=== PATIENT | male | born 1940 | race Caucasian/White ===

== ENCOUNTER 2017-11-15 08:35 | Inpatient (IN) | payer MEDICARE, MEDICAID ==
[2017-11-15] MEDS ORDERED: Levofloxacin 500mg/100mL 500 MG/100 ML BAG IV ONE ×2 (08:46→09:54)
[2017-11-15] MEDS ORDERED: Ipratropium Neb 0.5 mg/2.5 mL UD HHN ONE ×2 (08:53→09:01)
[2017-11-15] MEDS ORDERED: Diltiazem 30 mg Tab PO STA (08:57)
[2017-11-15] MEDS ORDERED: Nitroglycerin 0.2 mg/hr Tdm TD ONE (08:59)
[2017-11-15] MEDS ORDERED: Albuterol Nebulizer 2.5mg/3mL HHN ONE (09:01)
[2017-11-15] MEDS ORDERED: Aspirin 81mg Chewable Tab PO STA (09:06)
[2017-11-15] MEDS ORDERED: Diltiazem 5 mg/mL 5mL Vial IVP STA (09:09)
[2017-11-15 09:12] LABS: % EOSINOPHILS 0.6 % (0.0-5.0); % LYMPHOCYTES 17.8 % (20.0-50.0); % NEUTROPHILS 73.6 % (40.0-80.0); HEMATOCRIT 41.5 % (41.0-60); HEMOGLOBIN 13.6 gm/dL (12-16); LYMPHOCYTE ABSOLUTE 0.5 Th/cmm (1.5-3.0); MEAN CELL VOLUME 90.3 fl (80-99); MEAN CORPUSCULAR HEMOGLOBIN 29.6 pg (27.0-31.0); MEAN CORPUSCULAR HGB CONC 32.7 pg (28.0-36.0); MONOCYTE ABSOLUTE 0.2 Th/cmm (0.3-1.0); NEUTROPHILE ABSOLUTE 2.2 Th/cmm (1.8-8.0); PLATELET COUNT 201 Th/cmm (150-400); RED CELL DISTRIBUTION WIDTH 14.2 % (11.5-20.0)
[2017-11-15 09:14] LABS: WHITE BLOOD COUNT 2.9 Th/cmm (4.8-10.8)
--- NOTE | 2017-11-15 09:24 | Diagnostic Imaging Report ---
Portable chest x-ray HISTORY: Shortness of breath The heart is enlarged. Cardiac electrode lead wires project over the right atrium and right ventricle. Infiltrates noted within the right and left lower lobe regions. Pneumonia cannot be excluded. No definite hilar or mediastinal abnormalities. IMPRESSION: 1. Bilateral lower lobe infiltrates. Pneumonia cannot be excluded. 2. Cardiomegaly with atherosclerotic vascular changes
[2017-11-15] MEDS ORDERED: Diltiazem 5 mg/mL 5mL Vial IVP ONE (09:25)
[2017-11-15 09:51] LABS: ALB/GLOB RATIO 0.7 (1.0-1.8); ALKALINE PHOSPHATASE 54 U/L (34-104); ANION GAP 20.2 (7.0-16.0); CALCIUM SERUM 10.4 mg/dL (8.6-10.3); CARBON DIOXIDE 16.7 mEq/L (21.0-31.0); CHLORIDE 105 mEq/L (98-107); CREATININE - SERUM 3.3 mg/dL (0.7-1.3); GLUCOSE 263 mg/dL (70-105); POTASSIUM SERUM 4.9 mEq/L (3.5-5.1); SGOT 112 U/L (13-39); SGPT/ALT 79 U/L (7-52); SODIUM SERUM 137 mEq/L (136-145); TOTAL PROTEIN,SERUM 7.2 gm/dL (6.0-8.3)
[2017-11-15 09:52] LABS: CHOLESTEROL 75 mg/dL (<200); HDL -HIGH DENSITY LIPOPROTEIN 9 mg/dL (23-92); TRIGLYCERIDES 201 mg/dL (<150)
[2017-11-15] MEDS ORDERED: Piperacillin Sodium/Tazobact 3.375 gm Vial IV ONE ×2 (09:54→17:31)
[2017-11-15 10:00] LABS: BUN - UREA NITROGEN 109 mg/dL (7-25)
[2017-11-15 10:37] LABS: pH 7.44 (7.35-7.45)
[2017-11-15 11:31] LABS: A1C % 8.3 % (4.0-6.0)
[2017-11-15] MEDS ORDERED: Diltiazem 5 mg/mL 25mL Vial IV ONE (11:55)
[2017-11-15] MEDS ORDERED: Sodium Chloride 0.9% 1,000 ML IV ONE (12:31)
[2017-11-15] MEDS ORDERED: Albuterol/Ipratropium Neb 3 ML AERS HHN PRN (12:50)
--- NOTE | 2017-11-15 16:31 | ER Physician Documentation ---
DATE OF SERVICE: 11/15/2017 ADDENDUM: LABORATORY DATA: The troponin is up, is 0.19 and could be secondary to sepsis, could be mild subendocardial ischemia, but the lactic acid is very high at 4.79 suggesting that the patient has septicemia. Triglyceride level is high at 201. The patient's electrolytes show sodium 137, potassium 4.9, chloride 105, CO2 is 16.7, glucose is 263 and BUN is 109, calcium level is 10.4, albumin is 3, albumin globulin ratio is 0.7. SGPT/AST ratio is 112, alkaline phosphatase ____. Magnesium is 2.3. BNP level is high at 728. Once we get the chest x-ray report to see whether the patient has any evidence of congestive heart failure, but the BNP is very high and whether this is because of some degree of congestive heart failure or not. White count is also elevated at 16.4 with hemoglobin of 11.4, hematocrit 34.1, and platelet count is 337,000 and differential was done and pH blood gas was done, pH of 7.44, pCO2 of 25, pO2 of 71, bicarbonate of 20.5. TSH is within normal limits. DIAGNOSES: So, the admitting diagnoses would be: 1. The patient has lethargic status. 2. Severe hypoxia on the verge of intubation, but to be avoided by giving antibiotics and 100% nonrebreather mask, breathing treatment, etc. 3. Mild elevation of troponin, could be secondary to infection, could be secondary to multiple medical problems or it could be the patient having some subendocardial ischemia. 4. The patient has sepsis, possibly septic shock status, septicemia status. 5. BNP is elevated to be 728 and this is comprising of the patient having congestive heart failure. There is no definite evidence of rhabdomyolysis in this patient. The BUN level is high at 109, creatinine is 3.3. This is old BUN and creatinine, chronic renal failure stage 3 with renal failure, so possibly the patient might need some diuretics to be given for her. We will check and give her some Lasix, given some Lasix at the present moment. The patient has protein-calorie malnutrition, chronic kidney disease and all the other disease that I mentioned before holds true. JOB# [id number]
[2017-11-15] MEDS ORDERED: D5-0.45NS w/20 mEq KCL 1,000 ML IV ONE (16:53)
[2017-11-15] MEDS: D5-0.45NS w/20 mEq KCL 1,000 ML IV SCH (17:01)
[2017-11-15] MEDS: methylPREDNISolone SS 40 mg Vial IVP SCH ×2 (17:52→23:27)
[2017-11-15] MEDS: Cefepime 1 GM in Sodium Chloride 0.9% 50 ML IV SCH (18:58)
--- NOTE | 2017-11-15 20:29 | History & Physical ---
ADMIT DATE: 11/15/2017 CHIEF COMPLAINT: Acute respiratory failure. HISTORY OF PRESENT ILLNESS: The patient is a 77-year-old male who presented to the Emergency Room with acute respiratory failure, evaluated by the ER physician. Initial workup significant for pneumonia, acute kidney injury, dehydration. The patient admitted to the ICU, started on IV fluid, antibiotic, BiPAP, breathing treatment, Solu-Medrol. Infectious Disease consultation, Pulmonology and Nephrology consultation obtained. The patient is a poor historian secondary to dementia. PAST MEDICAL HISTORY: Significant for diabetes mellitus, hypertension, and dementia. PAST SURGICAL HISTORY: No recent surgery. ALLERGIES: Lisinopril. SOCIAL HISTORY: Ex-smoker. No alcohol or drug. FAMILY HISTORY: Noncontributory. REVIEW OF SYSTEMS: RENAL SYSTEM: He has history of chronic renal disorder. CARDIOVASCULAR SYSTEM: He has history of hypertension, CHF. ENDOCRINE SYSTEM: He has history of diabetes mellitus. GASTROINTESTINAL SYSTEM: No upper or lower GI bleed. NEUROLOGICAL SYSTEM: He has history of dementia. MUSCULOSKELETAL SYSTEM: No muscular dystrophy. HEMATOLOGICAL: No bleeding tendency. RESPIRATORY SYSTEM: He has pneumonia and acute respiratory failure, COPD. GENITOURINARY SYSTEM: He has acute kidney injury. PHYSICAL EXAMINATION: GENERAL: He is awake, not coherent. VITAL SIGNS: Temperature 97.5, heart rate 105, blood pressure 141/61. HEENT: Normocephalic. Pupils reactive to light and accommodation. Sclerae clear. NECK: Supple. Negative for lymphadenopathy, JVD or bruit. CHEST: Bilaterally diminished associated with mild rhonchi. HEART: S1, S2 normal. ABDOMEN: Soft. Bowel sounds positive. EXTREMITIES: No edema. NEUROLOGIC: Awake, not coherent. LABORATORY DATA: White blood cells 2.9, hemoglobin 13.6, hematocrit 41.5, platelet 201. ABG: Shows pH 7.4, pCO2 is 25, pO2 is 71. Sodium 137, potassium 4.9, BUN is 109, creatinine 3.3, glucose 263. A1c hemoglobin 8.3. ASSESSMENT: 1. Pneumonia. 2. Acute respiratory failure. 3. Chronic obstructive pulmonary disease. 4. Hypertension. 5. Congestive heart failure. 6. Diabetes mellitus. 7. Acute kidney injury. 8. Dehydration. 9. Dementia. PLAN: The patient is in ICU under Dr. Frost's service, started him on IV fluid, IV antibiotic, breathing treatment, sliding scale with regular insulin coverage. CBC, CMP in a.m. Pulmonology, infectious disease specialist, Nephrology consultation obtained. The patient is a full code. JOB# [id number]
[2017-11-15] MEDS ORDERED: Non-Formulary Item 1 EA (Melatonin [Melatonin] 6 MG) PO SCH (21:00)
--- NOTE | 2017-11-15 21:45 | ER Physician Documentation ---
DATE OF SERVICE: 11/15/2017 HISTORY OF PRESENT ILLNESS: Urgent emergency evaluation because the patient was found to be hypoxic and paramedics called the Emergency Room triage nurse. Immediately, the patient was put to the bed #4. I was asked to see the patient. The patient was seen. The patient is not in a position to give any history. The blood gas oxygen saturation went down a little bit, then it came back to 97 and then the blood gas was done, pH of 7.44, pCO2 of 25, pO2 of 71, base excess is -5.6, bicarbonate is 20.5. The patient is on 100% oxygen nonrebreathing mask. The patient's EKG was also done urgently by the instrumentation and control technician, grateful for her help. 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 EKG also showed evidence of left ventricular hypertrophy with repolarization abnormality and nonspecific ST-T changes could be also secondary to ischemia and the history that came, the patient also has ICD device placement. The patient himself cannot give any history. Hence, past history, personal history everything would be made into the final section, so we do not repeat everything except that from looking at the medication, I can say that the patient has sleeping problem, so he is taking melatonin 6 mg a day. He has hypercholesterolemia. He has history of congestive heart failure. He has history of hypertension, history of COPD, history of ICD device. The patient has taken flu vaccine, pneumococcal vaccine and other things that would be mentioned as we go along in the dictation. Past history is that the patient is living in [place] and the patient was sent from there because of severe hypoxia and probably the patient may need intubation. On physical examination, the patient was found to be adequately built, but seems to be poorly nourished. He was not responsive to any pain stimulation. The patient was on 100% oxygen and he had bilateral scattered rales and rhonchi, audible in both lung king. Crackles more were heard in both lung bases and bilateral pneumonitis with COPD is a very likely possibility. PERSONAL HISTORY: Not available, but whatever I see will be put into the final evaluation. FAMILY HISTORY: Not available. PHYSICAL EXAMINATION: HEART: Reveals a rapid heartbeat of 150, atrial fibrillation. He is known to have atrial fibrillation from the past, probably he has sick sinus syndrome, probably he has coronary artery disease or this atrial fibrillation could be a combination of various factors in this patient. ABDOMEN: Soft, benign and negative. Liver, spleen not enlarged. No free fluid in the abdominal cavity. CENTRAL NERVOUS SYSTEM: The patient is unresponsive to answering any questions, but does responds to deep painful stimuli. ALLERGIES: Lisinopril. FINAL DIAGNOSES: Initially the patient is hypoxic in the halfway and over here the oxygen saturation is 71% with 100% nonrebreather mask and the pCO2 is around 25. The patient has been on various medications, which will be given to you in a moment. 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 The patient has sick sinus syndrome, ICD code I49.5. Elevated PSA, code is R97.2 and encounter for screening for malignant neoplasm is ____. The patient's past history is that the patient was admitted to [facility] and the patient was seen by Dr. Osman Ross; electrician's assistant anesthesiologist, ____ and the patient had screening colonoscopy done showing internal hemorrhoids, diverticulosis; otherwise normal colonoscopic examination, so it was not on admission. Outpatient colonoscopic workup was done on the patient and there was no evidence of any cancer, no acute cardiopulmonary disease at that point in time was detected. His urine examination done in the past ____, otherwise negative benign. The patient's white count is 7.7, hemoglobin 13.1, hematocrit 42.3, platelet count is 215, ____. This is old labs that I am giving you. PT, PTT is normal. The patient's blood sugar in the past, his date of is 1940 and this was done, I believe at [facility] showing the glucose to be 214, creatinine was 1.3, sodium 140, potassium 4.1, chloride 106, CO2 is 28. Albumin is 3.6. There is mild hypoalbuminemia. Alkaline phosphatase is elevated at 2.9. The patient's final diagnosis includes the patient is unresponsive and the patient is on Eliquis 2.5 mg b.i.d., melatonin 6 mg p.o. at bedtime, Lipitor 20 mg at bedtime, amlodipine 100 mg p.o. daily, spironolactone 50 mg daily, Protonix 40 mg p.o. daily, metformin 500 mg p.o. b.i.d., Coreg 3.125 mg b.i.d., amlodipine 500 mg p.o. at bedtime for hypertension, aspirin chewable, olanzapine 10 mg p.o. for schizophrenia, paranoid delusions that others are conspiring against him. Informed consent will be obtained by the patient for the use of antipsychotic medication after explanation of the risks and benefits to the resident. The patient should be monitored for orthostatic hypotension, monitor for schizophrenia. The patient should get annual PPD testing done. Flu vaccination and pneumococcal vaccination has been given to the patient. The patient needs to be monitored. Gas Compressor Operator is Dr. Eugenio Her, located at [address] [place] [address] and Dermatology consultation was requested, ENT followup and consultation has been requested. The patient has been given Remeron 30 mg at bedtime for depression. Consent obtained for antibiotic use. Headache, Tylenol has been given to the patient. So, all these medications will be ordered by his primary care physician. The patient needs admission to the hospital. 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 The patient's other diagnosis is acute respiratory failure, COPD, emphysema, bronchitis, congestive heart failure, diabetes, hypertension, chronic atrial fibrillation, schizophrenia, hypercholesterolemia, diabetes mellitus, clean colon, internal hemorrhoids, diverticulosis was detected. The patient also has coronary artery disease. The patient has a history of hypothyroidism, decreased TSH 0.33. The patient is CKD, stage 3; benign prostatic hypertrophy. We will repeat A1c level, fasting level, PSA, etc., will be done. JOB# [id number]
[2017-11-15] MEDS: Linezolid 600mg/300mL Premix Bag IV SCH (23:29)
[2017-11-15] MEDS: Non-Formulary Item 1 EA (Apixaban [Eliquis] 2.5 MG) PO SCH (23:33)
[2017-11-15] MEDS: Atorvastatin Calcium 10 MG TAB PO SCH (23:38)
[2017-11-15] MEDS: GLUCAGON HCl 1 MG KIT IM SCH (23:42)
[2017-11-16] MEDS: D5-0.45NS w/20 mEq KCL 1,000 ML IV SCH ×2 (01:09→07:57)
[2017-11-16] MEDS: methylPREDNISolone SS 40 mg Vial IVP SCH ×3 (05:32→17:19)
[2017-11-16] MEDS: INSULIN ASPART SLIDING SCALE 100 UNITS/ML UNIT SUBQ SCH ×4 (06:56→21:29)
--- NOTE | 2017-11-16 07:54 | Consultation ---
Consult Note - Consult Note Service Date: 11/16/17 Referring Physician: Harley Frost Consult Note: PHYSICIAN Consultation Note: Date of Admission: 11/15/17 Purpose of Consultation: ARF Chief Complaint: RESPIRATORY FAILURE ARF History of Present Illness: Patient ROBERTO RODRIGUEZ was admitted to [facility] Intensive Care Unit with ACUTRE RENAL FAILURE, SEPSIS, PNA. 77 YEAR OLD MALE ADMITTED WITH RESP FAILURE PNA ARF. PT ADMITTED TO ICU. ON IVF AND IV ABX. Past Medical History: DM HTN DEMENTIA Allergies Allergy/AdvReac Type Severity Reaction Status Date / Time lisinopril Allergy Verified 11/15/17 09:03 Vital Signs Temp 97.4 F 11/16/17 04:00 Pulse 72 11/16/17 06:00 Resp 24 11/16/17 06:00 BP 123/63 11/16/17 06:00 Pulse Ox 97 11/16/17 06:00 Intake & Output 11/15/17 11/16/17 11/16/17 18:59 06:59 18:59 Intake Total 1100 1852.0 Output Total 1200 Balance 1100 652.0 Weight (lbs) 62.55 kg Intake: Intake, IV Amount 1100 1852.0 Cefepime 1 gm In Sodium 50 Chloride 0.9% 50 ml @ 100 mls/hr IV Q24HR RYAN Rx#: [id number] D5-0.45NS w/20 mEq KCL 1, 1727.5 000 ml @ 150 mls/hr IV . Q6H40M RYAN Rx#:[id number] Diltiazem 125 mg In 124.5 Dextrose 5% 100 ml @ 10 MG/HR 10 mls/hr IV TITR RYAN Rx#:[id number] Piperacillin Sodium/ 50 Tazobact 3.375 gm In Sodium Chloride 0.9% 50 ml @ 100 mls/hr IV Q6HR ONE Rx#:[id number] Sodium Chloride 0.9% 1, 1000 000 ml @ Wide Open IV . Q0M ONE Rx#:[id number] Output: Urine 1200 Laboratory Results - last 24 hr 11/15/17 17:58 POC Glucose 241 H Home Medication Medication Instructions Recorded Type Amlodipine Besylate 5 mg PO HS 11/15/17 History Amlodipine Besylate 100 mg PO DAILY 11/15/17 History Apixaban [Eliquis] 2.5 mg PO BID 11/15/17 History Aspirin [Aspirin Chewable] 81 mg PO DAILY 11/15/17 History Atorvastatin Calcium [Lipitor] 20 mg PO HS 11/15/17 History Carvedilol [Coreg] 3.125 mg PO BID 11/15/17 History GLUCAGON HCl [Glucagen] 1 mg IM PRN 11/15/17 History Insulin Human Regular [NovoLIN R] 0 units SUBQ BID 11/15/17 History Melatonin 6 mg PO HS 11/15/17 History Mirtazapine [Remeron] 30 mg PO HS 11/15/17 History Neomycin/Bacitracin/Polymyxinb 1 appl TP DAILY 11/15/17 History [Triple Antibiotic Ointment] OLANZapine [ZyPREXA] 10 mg PO TID 11/15/17 History Pantoprazole [Protonix] 40 mg PO DAILY 11/15/17 History Spironolactone 50 mg PO DAILY 11/15/17 History metFORMIN [Glucophage] 500 mg PO BID 11/15/17 History Current Medications Generic Name Dose Route Start Last Admin Trade Name Freq PRN Reason Stop Dose Admin Acetaminophen 650 mg 11/15/17 12:50 Tylenol 650mg Supp RC 01/14/18 12:49 Q4H PRN Fever > 101 Albuterol/Ipratropium 3 ml 11/15/17 12:50 Duoneb Neb HHN 01/14/18 12:49 Q4H PRN Wheezing Amlodipine Besylate 5 mg 11/15/17 21:00 11/15/17 22:41 Norvasc PO 01/14/18 20:59 5 mg HS RYAN Administration Aspirin 81 mg 11/16/17 09:00 Aspirin Chewable PO 01/15/18 08:59 DAILY RYAN Atorvastatin Calcium 20 mg 11/15/17 23:00 11/15/17 23:38 Lipitor PO 01/14/18 22:59 20 mg HS RYAN Administration Carvedilol 3.125 mg 11/15/17 17:00 11/15/17 22:40 Coreg PO 01/14/18 16:59 3.125 mg BID RYAN Administration Glucagon 1 mg 11/15/17 16:45 11/15/17 23:42 Glucagen IM 01/14/18 16:44 Not Given PRN RYAN Diltiazem HCl 125 mg/ Dextrose 125 mls @ 10 mls/hr 11/15/17 11:45 11/16/17 03 :00 IV 01/14/18 11:44 0 mg/hr TITR RYAN 0 mls/hr Protocol Titration 10 MG/HR Potassium Chloride/Dextrose/Sod Cl 1,000 mls @ 150 mls/hr 11/15/17 12:47 07/26 06:00 D5-0.45ns W/20 Meq Kcl IV 01/14/18 12:46 150 mls/hr .Q6H40M RYAN Infusion Cefepime HCl 1 gm/ Sodium 50 mls @ 100 mls/hr 11/15/17 18:00 11/15/17 18:59 Chloride IV 01/14/18 17:59 Infused Q24HR RYAN Infusion Levofloxacin 250 mg/ 50 mls @ 100 mls/hr 11/16/17 10:00 Miscellaneous IV 01/15/18 09:59 Q24H RYAN Insulin Aspart 0 units 11/16/17 07:30 11/16/17 06:56 Novolog Insulin Sliding Scale SUBQ 01/15/18 07:29 11 units ACHS RYAN Administration Protocol Linezolid 600 mg 11/15/17 23:00 11/15/17 23:29 Zyvox IV 01/14/18 22:59 600 mg Q12H RYAN Administration Methylprednisolone Sodium Succinate 60 mg 11/15/17 18:00 11/16/17 05:32 Solu-Medrol IVP 01/14/18 17:59 60 mg Q6HR RYAN Administration Mirtazapine 30 mg 11/15/17 23:00 11/15/17 23:36 Remeron PO 01/14/18 22:59 30 mg HS RYAN Administration Miscellaneous 2.5 mg 11/15/17 17:00 11/15/17 23:33 Apixaban [Eliquis] PO 01/14/18 16:59 Not Given BID RYAN Miscellaneous 6 mg 11/15/17 21:00 11/15/17 23:39 Melatonin [Melatonin] PO 01/14/18 20:59 Not Given HS RYAN Neomycin/Polymyxin/Bacitracin 1 appl 11/16/17 09:00 Triple Antibiotic Ointment TP 01/15/18 08:59 DAILY RYAN Olanzapine 10 mg 11/15/17 21:00 Zyprexa PO 01/14/18 20:59 TID RYAN Protocol Pantoprazole Sodium 40 mg 11/16/17 09:00 Protonix PO 01/15/18 08:59 DAILY RYAN Review of Systems: A 12 point ROS was reviewed with the pertinent positive and negatives noted in the HPI. Social History Smoking Status Smoker EX Drug Use No Alcohol Use No Family Medical History Family Medical History Start: 11/15/17 19: 06 Freq: ONCE Status: Active Document 11/15/17 22:00 RADHA (Rec: 11/15/17 22:57 RADHA ALAN- [id number]) Family Medical History Mother History Unknown Yes Physical Exam: General: LETHARGIC HEENT: TENISHA Neck: SUPPLE Cardio: S1S2 TACHY Respiratory: B/L RHONCHI Abdominal: SOFT NT ND Genital/Urinary: DEFERRED Extremities: NO EDEMA Neurological: CONFUSED Assessment: PNEUMONMIA SEPSIS ACUTE RESPIRATORY FAILURE COPD HTN CHF DM ARF DEMENTIA Plan: WILL REPEAT CHEM 7 THIS AM WILL ORDER HD IF NO IMPROVEMENT IN LABS Signed, Aureliano Heaton M.D. [id number]
[2017-11-16 08:31] LABS: CALCIUM SERUM 9.2 mg/dL (8.6-10.3); CARBON DIOXIDE 16.6 mEq/L (21.0-31.0); CHLORIDE 110 mEq/L (98-107); CREATININE - SERUM 2.9 mg/dL (0.7-1.3); POTASSIUM SERUM 4.6 mEq/L (3.5-5.1); SODIUM SERUM 137 mEq/L (136-145)
[2017-11-16 08:33] LABS: BUN - UREA NITROGEN 105 mg/dL (7-25); GLUCOSE 395 mg/dL (70-105)
[2017-11-16] MEDS: Sodium Chloride 0.9% 1,000 ML IV SCH ×2 (09:01→21:05)
[2017-11-16] MEDS: Levofloxacin 250mg/50mL 250 MG in Premix Fluid 1 BAG IV SCH (09:44)
[2017-11-16] MEDS: Pantoprazole 40 mg EC Tab PO SCH (10:18)
[2017-11-16] MEDS: Aspirin 81mg Chewable Tab PO SCH (10:19)
[2017-11-16] MEDS: Linezolid 600mg/300mL Premix Bag IV SCH (10:19)
[2017-11-16] MEDS: Triple Antibiotic Ointment 28gm tube TP SCH (10:32)
[2017-11-16] MEDS: Non-Formulary Item 1 EA (Apixaban [Eliquis] 2.5 MG) PO SCH ×2 (15:34→17:11)
[2017-11-16] MEDS: Cefepime 1 GM in Sodium Chloride 0.9% 50 ML IV SCH (17:19)
[2017-11-16] MEDS: GLUCAGON HCl 1 MG KIT IM SCH (17:21)
--- NOTE | 2017-11-16 19:29 | History & Physical ---
ADMIT DATE: 11/15/2017 PRIMARY CARE PHYSICIAN: Dr. Frost. REASON FOR CONSULTATION: Sepsis. HISTORY OF PRESENT ILLNESS: This is a 77-year-old male who was brought to the Emergency Room with complaint of high fever, chills and shortness of breath. The patient was found to have sepsis with lactic acidosis. Stat infectious consultation was called, antibiotic started. The patient's ____ is critical, unable to provide meaningful history. Old chart reviewed, pertinent information obtained, also discussed with the ER physician. PAST MEDICAL HISTORY: Diabetes, hypertension and dementia. ALLERGY: To lisinopril. FAMILY HISTORY: Negative. PERSONAL HISTORY: Nonsmoker. REVIEW OF SYSTEMS: A 14-point review of systems negative except as above. PHYSICAL EXAMINATION: GENERAL: The patient is an elderly male, lethargic, on supplemental oxygen. VITAL SIGNS: Temperature 97.4, pulse 72, respiration 24, blood pressure 123/63, pulse ox is 97%. HEENT: Mild pallor. No icterus or plaque. NECK: Supple. LUNGS: Breath sounds bilateral vesicular. ABDOMEN: Soft, bowel sounds present. LYMPHATIC: No thyroid or cervical lymph nodes. LABORATORY AND DIAGNOSTIC DATA: Chest x-ray shows infiltrates. Creatinine is high, creatinine is 2.9. Lactic acid 6.3. UA ordered. Blood culture negative so far. DIAGNOSES: Severe sepsis, renal failure, lactic acidosis. Also, respiratory failure, supplemental oxygen. The patient's repeat labs tomorrow. Levophed p.r.n. PLAN: The patient was started on Maxipime, Levaquin, and Zyvox combination. Sputum culture requested. Serology also requested. Supportive care. Rest of the care as ordered in CPOE. Thank you Dr. Frost for this consultation. The patient will need ICU admission. Discussed with the staff. JOB# [id number]
[2017-11-16] MEDS: Albuterol/Ipratropium Neb 3 ML AERS HHN SCH ×2 (20:33→23:07)
[2017-11-16] MEDS: Atorvastatin Calcium 10 MG TAB PO SCH (21:00)
--- NOTE | 2017-11-16 23:17 | Internal Medicine Prog Note ---
Internal Medicine Subjective - Subjective Patient is:: awake, non-verbal, in bed, confused, congested Per staff patient has:: no adverse event (HE HAS POOR APETITE) Internal Medicine Objective - Results Result Diagrams: 11/15/17 09:01 11/16/17 08:00 Recent Labs: Laboratory Last Values WBC 2.9 Th/cmm (4.8-10.8) L 11/15/17 09:01 RBC 4.60 Mil/cmm (3.80-5.80) 11/15/17 09:01 Hgb 13.6 gm/dL (12-16) 11/15/17 09:01 Hct 41.5 % (41.0-60) 11/15/17 09:01 MCV 90.3 fl (80-99) 11/15/17 09:01 MCH 29.6 pg (27.0-31.0) 11/15/17 09:01 MCHC Differential 32.7 pg (28.0-36.0) 11/15/17 09:01 RDW 14.2 % (11.5-20.0) 11/15/17 09:01 Plt Count 201 Th/cmm (150-400) 11/15/17 09:01 MPV 9.0 fl 11/15/17 09:01 Neutrophils % 73.6 % (40.0-80.0) 11/15/17 09:01 Lymphocytes % 17.8 % (20.0-50.0) L 11/15/17 09:01 Monocytes % 8.0 % (2.0-10.0) 11/15/17 09:01 Eosinophils % 0.6 % (0.0-5.0) 11/15/17 09:01 Basophils % 0.0 % (0.0-2.0) 11/15/17 09:01 Specimen Source Arterial 11/15/17 08:47 Sample Site RB 11/15/17 08:47 pH 7.44 (7.35-7.45) 11/15/17 08:47 pCO2 25.0 mmHg (35.0-45.0) L 11/15/17 08:47 pO2 71.0 mmHg (80.0-100.0) L 11/15/17 08:47 HCO3 20.5 mEq/L (20.0-26.0) 11/15/17 08:47 Base Excess -5.6 mEq/L (-3.0-3.0) L 11/15/17 08:47 O2 Saturation 95.0 % (92.0-100.0) 11/15/17 08:47 Mario Test NA 11/15/17 08:47 Vent Rate NA 11/15/17 08:47 Inspired O2 100 11/15/17 08:47 Tidal Volume NA 11/15/17 08:47 PEEP NA 11/15/17 08:47 Pressure (ins/psv/peep) NA 11/15/17 08:47 Critical Value LZHANG 11/15/17 08:47 Sodium 137 mEq/L (136-145) 11/16/17 08:00 Potassium 4.6 mEq/L (3.5-5.1) 11/16/17 08:00 Chloride 110 mEq/L (98-107) H 11/16/17 08:00 Carbon Dioxide 16.6 mEq/L (21.0-31.0) L 11/16/17 08:00 Anion Gap 15.0 (7.0-16.0) 11/16/17 08:00 BUN 105 mg/dL (7-25) H* 11/16/17 08:00 Creatinine 2.9 mg/dL (0.7-1.3) H 11/16/17 08:00 Est GFR ( Amer) TNP 11/16/17 08:00 Est GFR (Non-Af Amer) TNP 11/16/17 08:00 BUN/Creatinine Ratio 36.2 11/16/17 08:00 Glucose 395 mg/dL (70-105) H D 11/16/17 08:00 POC Glucose 246 MG/DL (70 - 105) H 11/16/17 11:40 Hemoglobin A1c % 8.3 % (4.0-6.0) H 11/15/17 09:20 Whole Bld Lactic Acid 6.37 mmol/L (0.60-1.99) H* 11/15/17 11:20 Calcium 9.2 mg/dL (8.6-10.3) 11/16/17 08:00 Magnesium 2.3 mg/dL (1.9-2.7) 11/15/17 09:20 Total Bilirubin 1.0 mg/dL (0.3-1.0) 11/15/17 09:20 AST 112 U/L (13-39) H 11/15/17 09:20 ALT 79 U/L (7-52) H 11/15/17 09:20 Alkaline Phosphatase 54 U/L (34-104) 11/15/17 09:20 Troponin I 0.19 ng/mL (0.01-0.05) H* 11/15/17 09:01 B-Natriuretic Peptide 728.0 pg/mL (5.0-100.0) H 11/15/17 09:20 Total Protein 7.2 gm/dL (6.0-8.3) 11/15/17 09:20 Albumin 3.0 gm/dL (4.2-5.5) L 11/15/17 09:20 Globulin 4.2 gm/dL 11/15/17 09:20 Albumin/Globulin Ratio 0.7 (1.0-1.8) L 11/15/17 09:20 Triglycerides 201 mg/dL (<150) H 11/15/17 09:20 Cholesterol 75 mg/dL (<200) 11/15/17 09:20 LDL Cholesterol Direct 8 mg/dL (75-193) L 11/15/17 09:20 HDL Cholesterol 9 mg/dL (23-92) L 11/15/17 09:20 TSH 0.75 uIU/ml (0.34-5.60) 11/15/17 09:20 - Physical Exam Vitals and I&O: Vital Signs Temp 97.3 F 11/16/17 20:00 Pulse 96 11/16/17 23:08 Resp 20 11/16/17 23:08 BP 116/62 11/16/17 22:00 Pulse Ox 94 11/16/17 23:08 Intake & Output 11/16/17 11/16/17 11/17/17 06:59 18:59 06:59 Intake Total 1852.0 1562.5 Output Total 1200 700 Balance 652.0 862.5 Weight (lbs) 62.55 kg 60.781 kg 60.781 kg Intake: Intake, IV Amount 1852.0 1322.5 D5-0.45NS w/20 mEq KCL 1, 1727.5 272.5 000 ml @ 150 mls/hr IV . Q6H40M [facility] Rx#:[id number] Diltiazem 125 mg In 124.5 Dextrose 5% 100 ml @ 10 MG/HR 10 mls/hr IV TITR [facility] Rx#:[id number] Levofloxacin 250mg/50mL 50 250 mg In Premix Fluid 1 bag @ 50 mls/hr IV Q24H [facility] Rx#:[id number] Sodium Chloride 0.9% 1, 1000 000 ml @ 125 mls/hr IV . Q8H [facility] Rx#:[id number] Oral 240 Output: Urine 1200 700 Active Medications: Current Medications Acetaminophen (Tylenol 650mg Supp) 650 mg RC Q4H PRN PRN Reason: Fever > 101 Stop: 01/14/18 12:49 Albuterol/Ipratropium (Duoneb Neb) 3 ml HHN Q4HRT [facility] Stop: 01/15/18 18:59 Last Admin: 11/16/17 23:07 Dose: 3 ml Amlodipine Besylate (Norvasc) 5 mg PO HS [facility] Stop: 01/14/18 20:59 Last Admin: 11/16/17 21:04 Dose: 5 mg Aspirin (Aspirin Chewable) 81 mg PO DAILY [facility] Stop: 01/15/18 08:59 Last Admin: 11/16/17 10:19 Dose: 81 mg Atorvastatin Calcium (Lipitor) 20 mg PO HS [facility] Stop: 01/14/18 22:59 Last Admin: 11/16/17 21:00 Dose: 20 mg Carvedilol (Coreg) 3.125 mg PO BID [facility] Stop: 01/14/18 16:59 Last Admin: 11/16/17 17:19 Dose: 3.125 mg Glucagon (Glucagen) 1 mg IM PRN [facility] Stop: 01/14/18 16:44 Last Admin: 11/16/17 17:21 Dose: Not Given Diltiazem HCl 125 mg/ Dextrose 125 mls @ 10 mls/hr IV TITR [facility]; 10 MG/HR PRN Reason: Protocol Stop: 01/14/18 11:44 Last Titration: 11/16/17 03:00 Dose: 0 mg/hr, 0 mls/hr Cefepime HCl 1 gm/ Sodium (Chloride) 50 mls @ 100 mls/hr IV Q24HR [facility] Stop: 01/14/18 17:59 Last Admin: 11/16/17 17:19 Dose: 100 mls/hr Levofloxacin 250 mg/ (Miscellaneous) 50 mls @ 50 mls/hr IV Q24H [facility] Stop: 01/15/18 09:59 Last Infusion: 11/16/17 10:15 Dose: Infused Sodium Chloride (Nacl 0.9%) 1,000 mls @ 125 mls/hr IV .Q8H [facility] Stop: 01/15/18 08:59 Last Admin: 11/16/17 21:05 Dose: 125 mls/hr Insulin Aspart (Novolog Insulin Sliding Scale) 0 units SUBQ ACHS [facility] PRN Reason: Protocol Stop: 01/15/18 07:29 Last Admin: 11/16/17 21:29 Dose: Not Given Linezolid (Zyvox) 600 mg IV Q12H [facility] Stop: 01/14/18 22:59 Last Admin: 11/16/17 10:19 Dose: 600 mg Methylprednisolone Sodium Succinate (Solu-Medrol) 60 mg IVP Q6HR [facility] Stop: 01/14/18 17:59 Last Admin: 11/16/17 17:19 Dose: 60 mg Mirtazapine (Remeron) 30 mg PO HS [facility] Stop: 01/14/18 22:59 Last Admin: 11/16/17 21:00 Dose: 30 mg Miscellaneous (Apixaban [Eliquis]) 2.5 mg PO BID [facility] Stop: 01/14/18 16:59 Last Admin: 11/16/17 17:11 Dose: Not Given Miscellaneous (Melatonin [Melatonin]) 6 mg PO HS [facility] Stop: 01/14/18 20:59 Last Admin: 11/15/17 23:39 Dose: Not Given Neomycin/Polymyxin/Bacitracin (Triple Antibiotic Ointment) 1 appl TP DAILY [facility] Stop: 01/15/18 08:59 Last Admin: 11/16/17 10:32 Dose: 1 appl Olanzapine (Zyprexa) 10 mg PO TID [facility] PRN Reason: Protocol Stop: 01/14/18 20:59 Pantoprazole Sodium (Protonix) 40 mg PO DAILY [facility] Stop: 01/15/18 08:59 Last Admin: 11/16/17 10:18 Dose: 40 mg General: weak, demented HEENT: PERRLA, EOMI, anicteric sclerae, throat clear Neck: Supple, No JVD, No thyromegaly, No LAD Lungs: congested, ronchi Cardiovascular: Normal S2, other (IRRIGULAR) Extremities: clear Neurological: no change Internal Medicine Assmt/Plan - Assessment Assessment: 1.PNEUMONIA. 2.COPD. 3.AFIB. 4.DEMENTIA. 5.PENNY. 6.DEHYDRATION. - Plan Plan: CONTINUE ON CURRENT MEDICATION AND DIET. Nutritional Asmnt/Malnutr-PDOC - Dietary Evaluation Malnutrition Findings (Please click <Entered> for more info): Nutritional Asmnt/Malnutrition Start: 11/16/17 14: 06 Text: Status: Complete Freq: Document 11/16/17 14:06 LISA (Rec: 11/16/17 14:20 [email or web address]) Nutritional Asmnt/Malnutrition Patient General Information Nutritional Screening High Risk Consult Diagnosis actute renal failure, sepsis, PNA Pertinent Medical Hx/Surgical Hx hyperlipidemia, CHF, HTN, COPD , ICD device Subjective Information Consult received for admit blood sugar 263. Pt seen sleeping in bed at the time of visit. Spoke with RN, pt refused breakfast this morning possible d/t weakness and being sick. Current Diet Order/ Nutrition Support low chlesterol 300gm Pertinent Medications glucagen, novolog, remeron, nacl 0.9% Pertinent Labs 11/15 Na 137, K 4.6, Cl 110, BUN 105, Cr 2.9, GLucose 295, POC 246-370 since admit, a1c 8.3, calcium 9.2 Nutritional Hx/Data Height 1.85 m Height (Calculated Centimeters) 185.4 Current Weight (lbs) 62.55 kg Weight (Calculated Kilograms) 62.6 Weight (Calculated Grams) 66444.4 [place] Body Weight 184 % [place] Body Weight 75 Body Mass Index (BMI) 18.1 Weight Status Underweight GI Symptoms GI Symptoms None Last BM no record Skin Integrity/Comment: pressure area to heels Current %PO Negligible < 25% Estimated Nutritional Goals Calories/Kcals/Kg 25-30 Kcals Calculated 3509-2238 based on IBW considering underweight and sepsis Protein g/k-1.2 Protein Calculated 84-100 Fluid: ml 2089-250ml (1ml/kcal) Nutritional Problem 2. Problem Problem altered nutrition related lab values Etiology acute renal failure, hx of DM Signs/Symptoms: BUN 105, Cr 2.9, GLucose 295, POC 246-370, a1c 8.3, 1. Problem Problem increased nutrition needs ( calorie and protein) Etiology increased metabolic demand for healing and underweight Signs/Symptoms: dx of sepsis and PNA, BMI 18.2 Malnutrition Alert Protein-Calorie Malnutrition N/A Is there a minimum of two criteria No selected? Query Text:Check all the applicable criteria. A minimum of two criteria are recommended for diagnosis of either severe or non-severe malnutrition. Intervention/Recommendation Comments 1. Recommend modify diet to CCHO, low cholesteral diet for optimal glycemic control. RN made aware, will talk to MD 2. Monitor PO intake, wt, labs and skin integrity 3. F/U as high risk in 2-3 days, 11/18-11/19 Expected Outcomes/Goals Expected Outcomes/Goals 1. PO intake to meet at least 75% of nutritional needs. 2. Wt stability, skin to remain intact, labs to improve
[2017-11-17] MEDS: Albuterol/Ipratropium Neb 3 ML AERS HHN SCH ×6 (03:41→23:32)
[2017-11-17] MEDS: methylPREDNISolone SS 40 mg Vial IVP SCH ×4 (05:08→17:29)
[2017-11-17] MEDS: Linezolid 600mg/300mL Premix Bag IV SCH (05:10)
[2017-11-17 08:19] LABS: MEAN PLATELET VOLUME 9.5 fl
[2017-11-17 08:27] LABS: % LYMPHOCYTES 3.7 % (20.0-50.0); % MONOCYTES 1.6 % (2.0-10.0); % NEUTROPHILS 94.7 % (40.0-80.0); HEMOGLOBIN 11.9 gm/dL (12-16); LYMPHOCYTE ABSOLUTE 0.4 Th/cmm (1.5-3.0); MEAN CELL VOLUME 87.8 fl (80-99); MEAN CORPUSCULAR HEMOGLOBIN 30.7 pg (27.0-31.0); MONOCYTE ABSOLUTE 0.2 Th/cmm (0.3-1.0); NEUTROPHILE ABSOLUTE 11.4 Th/cmm (1.8-8.0); RED BLOOD COUNT 3.89 Mil/cmm (3.80-5.80); RED CELL DISTRIBUTION WIDTH 14.4 % (11.5-20.0)
[2017-11-17 08:30] LABS: HEMATOCRIT 34.2 % (41.0-60); PLATELET COUNT 129 Th/cmm (150-400)
[2017-11-17 08:42] LABS: CALCIUM SERUM 9.4 mg/dL (8.6-10.3); CARBON DIOXIDE 16.3 mEq/L (21.0-31.0); CHLORIDE 112 mEq/L (98-107); CREATININE - SERUM 2.6 mg/dL (0.7-1.3); POTASSIUM SERUM 4.3 mEq/L (3.5-5.1); SODIUM SERUM 139 mEq/L (136-145)
[2017-11-17 08:45] LABS: BUN - UREA NITROGEN 113 mg/dL (7-25)
[2017-11-17 08:50] LABS: GLUCOSE 274 mg/dL (70-105)
[2017-11-17] MEDS: Triple Antibiotic Ointment 28gm tube TP SCH (09:00)
[2017-11-17] MEDS: INSULIN ASPART SLIDING SCALE 100 UNITS/ML UNIT SUBQ SCH ×4 (09:00→21:04)
--- NOTE | 2017-11-17 09:22 | Diagnostic Imaging Report ---
CHEST X-RAY: AP view INDICATION: Shortness of breath COMPARISON: 11/15/2017 FINDINGS: Left chest wall AICD stable. Bibasal infiltrate/pneumonia is noted right greater than left. Trace bilateral effusions are noted. Heart size is borderline prominent. IMPRESSION: Persistent bibasal infiltrates/pneumonia, right greater than left.
[2017-11-17] MEDS: Levofloxacin 250mg/50mL 250 MG in Premix Fluid 1 BAG IV SCH (10:30)
--- NOTE | 2017-11-17 11:20 | Consultation ---
DATE OF CONSULTATION: 11/16/2017 REFERRING PHYSICIAN: Dr. Frost. Thank you very much for this consultation. HISTORY OF PRESENT ILLNESS: This is a 77-year-old male who presented with shortness of breath, congestion, hypertension, dehydration, received IV fluids, Solu-Medrol, nebulizer and was on a BiPAP and the patient was improved and is on a nasal cannula, comfortable, but unable to give any further history. PAST MEDICAL HISTORY: Significant for COPD, history of smoking in the past, CHF diabetes mellitus, and dementia. SOCIAL HISTORY: As above. REVIEW OF SYSTEMS: Unable to obtain because of the patient's condition. PHYSICAL EXAMINATION: GENERAL: The patient is arousable, not in acute distress. VITAL SIGNS: Temperature 96.2, pulse 70, respiration 22, blood pressure 123/69 and saturation 95%. HEENT: Atraumatic, normocephalic. Pupils reactive to light and accommodation. Ears, nose, and throat normal. NECK: Supple. No JVD. CHEST: There are scattered rhonchi bilaterally. HEART: Regular rate and rhythm. ABDOMEN: Soft. EXTREMITIES: No edema. LABORATORY DATA: WBC 2.1, hemoglobin 13.6, hematocrit 41.5, platelets is 201. ABG: pH 7.44, pCO2 of 25, pO2 71, bicarbonate 20, saturation is 95%. Sodium 137, potassium 4.6, BUN is 105, creatinine 2.9, CO2 60. Chest x-ray is infiltrate in right lower lobe area. IMPRESSION: This is a 77-year-old male with: 1. Pneumonia. 2. Respiratory failure. 3. Weakness. 4. Sepsis. 5. Acute renal failure. 6. Metabolic acidosis. PLAN: 1. IV fluids. 2. Nebulizer treatment. 3. Pulmonary toilet. 4. Antibiotics, IV steroids. We will follow the patient with you. Thank you very much for this consultation. JOB# [id number] MATT
--- NOTE | 2017-11-17 11:31 | Diagnostic Imaging Report ---
CHEST X-RAY: AP view INDICATION: NG tube placement COMPARISON: 11/17/2017 FINDINGS: Left chest wall AICD is noted with leads in the region of the right atrium and right ventricle. NG tube is visualized a stone the distal tip not seen. Slight improvement in bibasal infiltrates/pneumonia is noted. Mild cardiomegaly is noted. IMPRESSION: NG tube within the stomach with distal tip not seen. Slight improvement in bibasal infiltrates/pneumonia.
[2017-11-17] MEDS: Linezolid 600mg/300mL 600 MG/300 ML BAG IV SCH ×2 (11:36→21:02)
--- NOTE | 2017-11-17 11:37 | General Progress Note ---
Subjective - Review of Systems Service Date: 11/17/17 Subjective: pt seen and examined lethargic Objective - Results Result Diagrams: 11/17/17 07:45 11/17/17 07:45 Recent Labs: Laboratory Last Values WBC 12.0 Th/cmm (4.8-10.8) H D 11/17/17 07:45 RBC 3.89 Mil/cmm (3.80-5.80) 11/17/17 07:45 Hgb 11.9 gm/dL (12-16) L 11/17/17 07:45 Hct 34.2 % (41.0-60) L D 11/17/17 07:45 MCV 87.8 fl (80-99) 11/17/17 07:45 MCH 30.7 pg (27.0-31.0) 11/17/17 07:45 MCHC Differential 35.0 pg (28.0-36.0) 11/17/17 07:45 RDW 14.4 % (11.5-20.0) 11/17/17 07:45 Plt Count 129 Th/cmm (150-400) L D 11/17/17 07:45 MPV 9.5 fl 11/17/17 07:45 Neutrophils % 94.7 % (40.0-80.0) H 11/17/17 07:45 Lymphocytes % 3.7 % (20.0-50.0) L 11/17/17 07:45 Monocytes % 1.6 % (2.0-10.0) L 11/17/17 07:45 Eosinophils % 0.0 % (0.0-5.0) 11/17/17 07:45 Basophils % 0.0 % (0.0-2.0) 11/15/17 09:01 Specimen Source Arterial 11/15/17 08:47 Sample Site RB 11/15/17 08:47 pH 7.44 (7.35-7.45) 11/15/17 08:47 pCO2 25.0 mmHg (35.0-45.0) L 11/15/17 08:47 pO2 71.0 mmHg (80.0-100.0) L 11/15/17 08:47 HCO3 20.5 mEq/L (20.0-26.0) 11/15/17 08:47 Base Excess -5.6 mEq/L (-3.0-3.0) L 11/15/17 08:47 O2 Saturation 95.0 % (92.0-100.0) 11/15/17 08:47 Mario Test NA 11/15/17 08:47 Vent Rate NA 11/15/17 08:47 Inspired O2 100 11/15/17 08:47 Tidal Volume NA 11/15/17 08:47 PEEP NA 11/15/17 08:47 Pressure (ins/psv/peep) NA 11/15/17 08:47 Critical Value LZHANG 11/15/17 08:47 Sodium 139 mEq/L (136-145) 11/17/17 07:45 Potassium 4.3 mEq/L (3.5-5.1) 11/17/17 07:45 Chloride 112 mEq/L (98-107) H 11/17/17 07:45 Carbon Dioxide 16.3 mEq/L (21.0-31.0) L 11/17/17 07:45 Anion Gap 15.0 (7.0-16.0) 11/17/17 07:45 BUN 113 mg/dL (7-25) H* 11/17/17 07:45 Creatinine 2.6 mg/dL (0.7-1.3) H 11/17/17 07:45 Est GFR ( Amer) TNP 11/17/17 07:45 Est GFR (Non-Af Amer) TNP 11/17/17 07:45 BUN/Creatinine Ratio 43.5 11/17/17 07:45 Glucose 274 mg/dL (70-105) H D 11/17/17 07:45 POC Glucose 246 MG/DL (70 - 105) H 11/16/17 11:40 Hemoglobin A1c % 8.3 % (4.0-6.0) H 11/15/17 09:20 Whole Bld Lactic Acid 6.37 mmol/L (0.60-1.99) H* 11/15/17 11:20 Calcium 9.4 mg/dL (8.6-10.3) 11/17/17 07:45 Magnesium 2.3 mg/dL (1.9-2.7) 11/15/17 09:20 Total Bilirubin 1.0 mg/dL (0.3-1.0) 11/15/17 09:20 AST 112 U/L (13-39) H 11/15/17 09:20 ALT 79 U/L (7-52) H 11/15/17 09:20 Alkaline Phosphatase 54 U/L (34-104) 11/15/17 09:20 Troponin I 0.19 ng/mL (0.01-0.05) H* 11/15/17 09:01 B-Natriuretic Peptide 728.0 pg/mL (5.0-100.0) H 11/15/17 09:20 Total Protein 7.2 gm/dL (6.0-8.3) 11/15/17 09:20 Albumin 3.0 gm/dL (4.2-5.5) L 11/15/17 09:20 Globulin 4.2 gm/dL 11/15/17 09:20 Albumin/Globulin Ratio 0.7 (1.0-1.8) L 11/15/17 09:20 Triglycerides 201 mg/dL (<150) H 11/15/17 09:20 Cholesterol 75 mg/dL (<200) 11/15/17 09:20 LDL Cholesterol Direct 8 mg/dL (75-193) L 11/15/17 09:20 HDL Cholesterol 9 mg/dL (23-92) L 11/15/17 09:20 TSH 0.75 uIU/ml (0.34-5.60) 11/15/17 09:20 - Physical Exam Vitals and I&O: Vital Signs Temp 97.8 F 11/17/17 04:00 Pulse 99 11/17/17 11:28 Resp 18 11/17/17 11:28 BP 113/46 11/17/17 07:00 Pulse Ox 99 11/17/17 11:28 Intake & Output 11/16/17 11/17/17 11/17/17 18:59 06:59 18:59 Intake Total 1562.5 Output Total 700 Balance 862.5 Weight (lbs) 60.781 kg 60.781 kg Intake: Intake, IV Amount 1322.5 D5-0.45NS w/20 mEq KCL 1, 272.5 000 ml @ 150 mls/hr IV . Q6H40M [facility] Rx#:[id number] Levofloxacin 250mg/50mL 50 250 mg In Premix Fluid 1 bag @ 50 mls/hr IV Q24H [facility] Rx#:[id number] Sodium Chloride 0.9% 1, 1000 000 ml @ 125 mls/hr IV . Q8H [facility] Rx#:[id number] Oral 240 Output: Urine 700 Active Medications: Current Medications Acetaminophen (Tylenol 650mg Supp) 650 mg RC Q4H PRN PRN Reason: Fever > 101 Stop: 01/14/18 12:49 Albuterol/Ipratropium (Duoneb Neb) 3 ml HHN Q4HRT [facility] Stop: 01/15/18 18:59 Last Admin: 11/17/17 11:27 Dose: 3 ml Amlodipine Besylate (Norvasc) 5 mg PO HS [facility] Stop: 01/14/18 20:59 Last Admin: 11/16/17 21:04 Dose: 5 mg Aspirin (Aspirin Chewable) 81 mg PO DAILY [facility] Stop: 01/15/18 08:59 Last Admin: 11/16/17 10:19 Dose: 81 mg Atorvastatin Calcium (Lipitor) 20 mg PO HS [facility] Stop: 01/14/18 22:59 Last Admin: 11/16/17 21:00 Dose: 20 mg Carvedilol (Coreg) 3.125 mg PO BID [facility] Stop: 01/14/18 16:59 Last Admin: 11/16/17 17:19 Dose: 3.125 mg Fluconazole (Diflucan) 100 mg PO DAILY [facility] Stop: 01/17/18 08:59 Glucagon (Glucagen) 1 mg IM PRN [facility] Stop: 01/14/18 16:44 Last Admin: 11/16/17 17:21 Dose: Not Given Diltiazem HCl 125 mg/ Dextrose 125 mls @ 10 mls/hr IV TITR [facility]; 10 MG/HR PRN Reason: Protocol Stop: 01/14/18 11:44 Last Titration: 11/16/17 03:00 Dose: 0 mg/hr, 0 mls/hr Cefepime HCl 1 gm/ Sodium (Chloride) 50 mls @ 100 mls/hr IV Q24HR [facility] Stop: 01/14/18 17:59 Last Admin: 11/16/17 17:19 Dose: 100 mls/hr Levofloxacin 250 mg/ (Miscellaneous) 50 mls @ 50 mls/hr IV Q24H [facility] Stop: 01/15/18 09:59 Last Admin: 11/17/17 10:30 Dose: 100 mls/hr Sodium Chloride (Nacl 0.9%) 1,000 mls @ 125 mls/hr IV .Q8H [facility] Stop: 01/15/18 08:59 Last Admin: 11/16/17 21:05 Dose: 125 mls/hr Linezolid (Zyvox) 600 mg in 300 mls @ 200 mls/hr IV Q12HR@0900,2100 [facility] Stop: 01/16/18 11:59 Insulin Aspart (Novolog Insulin Sliding Scale) 0 units SUBQ ACHS [facility] PRN Reason: Protocol Stop: 01/15/18 07:29 Last Admin: 11/17/17 09:00 Dose: Not Given Methylprednisolone Sodium Succinate (Solu-Medrol) 60 mg IVP Q6HR [facility] Stop: 01/14/18 17:59 Last Admin: 11/17/17 06:48 Dose: 60 mg Mirtazapine (Remeron) 30 mg PO HS [facility] Stop: 01/14/18 22:59 Last Admin: 11/16/17 21:00 Dose: 30 mg Miscellaneous (Apixaban [Eliquis]) 2.5 mg PO BID [facility] Stop: 01/14/18 16:59 Last Admin: 11/16/17 17:11 Dose: Not Given Miscellaneous (Melatonin [Melatonin]) 6 mg PO HS [facility] Stop: 01/14/18 20:59 Last Admin: 11/15/17 23:39 Dose: Not Given Neomycin/Polymyxin/Bacitracin (Triple Antibiotic Ointment) 1 appl TP DAILY [facility] Stop: 01/15/18 08:59 Last Admin: 11/17/17 09:00 Dose: 1 appl Olanzapine (Zyprexa) 10 mg PO TID [facility] PRN Reason: Protocol Stop: 01/14/18 20:59 Pantoprazole Sodium (Protonix) 40 mg PO DAILY [facility] Stop: 01/15/18 08:59 Last Admin: 11/16/17 10:18 Dose: 40 mg General: Other (lethargic) HEENT: PERRLA Neck: Supple Cardiovascular: Regular rate, Normal S1, Normal S2, Other (multiple PVC) Lungs: Clear to auscultation Abdomen: Bowel sounds, Soft, Distended Extremities: Edema Psych/Mental Status: Other (lethargic) Assessment/Plan - Problem List Patient Problems: All Active Problems SEVERE RESPIRATORY DISTRESS (Acute) - Assessment Assessment: 1.PNEUMONIA. 2.COPD. 3.AFIB. 4.DEMENTIA. 5.PENNY. 6.DEHYDRATION. - Plan Plan: pt renal function has not improved as much as I would have liked pt remains uremic and elevated BUN and acidosis remains a problem will need to do temp HD for now until pts renal function improves Nutritional Asmnt/Malnutr-PDOC - Dietary Evaluation Malnutrition Findings (Please click <Entered> for more info): Nutritional Asmnt/Malnutrition Start: 11/16/17 14: 06 Text: Status: Complete Freq: Document 11/16/17 14:06 LISA (Rec: 11/16/17 14:20 [email or web address]) Nutritional Asmnt/Malnutrition Patient General Information Nutritional Screening High Risk Consult Diagnosis actute renal failure, sepsis, PNA Pertinent Medical Hx/Surgical Hx hyperlipidemia, CHF, HTN, COPD , ICD device Subjective Information Consult received for admit blood sugar 263. Pt seen sleeping in bed at the time of visit. Spoke with RN, pt refused breakfast this morning possible d/t weakness and being sick. Current Diet Order/ Nutrition Support low chlesterol 300gm Pertinent Medications glucagen, novolog, remeron, nacl 0.9% Pertinent Labs 11/15 Na 137, K 4.6, Cl 110, BUN 105, Cr 2.9, GLucose 295, POC 246-370 since admit, a1c 8.3, calcium 9.2 Nutritional Hx/Data Height 1.85 m Height (Calculated Centimeters) 185.4 Current Weight (lbs) 62.55 kg Weight (Calculated Kilograms) 62.6 Weight (Calculated Grams) 33849.4 [place] Body Weight 184 % [place] Body Weight 75 Body Mass Index (BMI) 18.1 Weight Status Underweight GI Symptoms GI Symptoms None Last BM no record Skin Integrity/Comment: pressure area to heels Current %PO Negligible < 25% Estimated Nutritional Goals Calories/Kcals/Kg 25-30 Kcals Calculated 5024-9970 based on IBW considering underweight and sepsis Protein g/k-1.2 Protein Calculated 84-100 Fluid: ml 2089-250ml (1ml/kcal) Nutritional Problem 2. Problem Problem altered nutrition related lab values Etiology acute renal failure, hx of DM Signs/Symptoms: BUN 105, Cr 2.9, GLucose 295, POC 246-370, a1c 8.3, 1. Problem Problem increased nutrition needs ( calorie and protein) Etiology increased metabolic demand for healing and underweight Signs/Symptoms: dx of sepsis and PNA, BMI 18.2 Malnutrition Alert Protein-Calorie Malnutrition N/A Is there a minimum of two criteria No selected? Query Text:Check all the applicable criteria. A minimum of two criteria are recommended for diagnosis of either severe or non-severe malnutrition. Intervention/Recommendation Comments 1. Recommend modify diet to CCHO, low cholesteral diet for optimal glycemic control. RN made aware, will talk to MD 2. Monitor PO intake, wt, labs and skin integrity 3. F/U as high risk in 2-3 days, 11/18-11/19 Expected Outcomes/Goals Expected Outcomes/Goals 1. PO intake to meet at least 75% of nutritional needs. 2. Wt stability, skin to remain intact, labs to improve
[2017-11-17] MEDS: Pantoprazole 40 mg EC Tab PO SCH (12:42)
[2017-11-17] MEDS: Aspirin 81mg Chewable Tab PO SCH (12:42)
--- NOTE | 2017-11-17 12:54 | Internal Medicine Prog Note ---
Internal Medicine Subjective - Subjective Service Date: 11/17/17 Patient seen and examined:: with staff (he still has poor apetite) Patient is:: awake, non-verbal, in bed, confused, congested Per staff patient has:: no adverse event (HE HAS POOR APETITE) Internal Medicine Objective - Results Result Diagrams: 11/17/17 07:45 11/17/17 07:45 Recent Labs: Laboratory Last Values WBC 12.0 Th/cmm (4.8-10.8) H D 11/17/17 07:45 RBC 3.89 Mil/cmm (3.80-5.80) 11/17/17 07:45 Hgb 11.9 gm/dL (12-16) L 11/17/17 07:45 Hct 34.2 % (41.0-60) L D 11/17/17 07:45 MCV 87.8 fl (80-99) 11/17/17 07:45 MCH 30.7 pg (27.0-31.0) 11/17/17 07:45 MCHC Differential 35.0 pg (28.0-36.0) 11/17/17 07:45 RDW 14.4 % (11.5-20.0) 11/17/17 07:45 Plt Count 129 Th/cmm (150-400) L D 11/17/17 07:45 MPV 9.5 fl 11/17/17 07:45 Neutrophils % 94.7 % (40.0-80.0) H 11/17/17 07:45 Lymphocytes % 3.7 % (20.0-50.0) L 11/17/17 07:45 Monocytes % 1.6 % (2.0-10.0) L 11/17/17 07:45 Eosinophils % 0.0 % (0.0-5.0) 11/17/17 07:45 Basophils % 0.0 % (0.0-2.0) 11/15/17 09:01 Specimen Source Arterial 11/15/17 08:47 Sample Site RB 11/15/17 08:47 pH 7.44 (7.35-7.45) 11/15/17 08:47 pCO2 25.0 mmHg (35.0-45.0) L 11/15/17 08:47 pO2 71.0 mmHg (80.0-100.0) L 11/15/17 08:47 HCO3 20.5 mEq/L (20.0-26.0) 11/15/17 08:47 Base Excess -5.6 mEq/L (-3.0-3.0) L 11/15/17 08:47 O2 Saturation 95.0 % (92.0-100.0) 11/15/17 08:47 Mario Test NA 11/15/17 08:47 Vent Rate NA 11/15/17 08:47 Inspired O2 100 11/15/17 08:47 Tidal Volume NA 11/15/17 08:47 PEEP NA 11/15/17 08:47 Pressure (ins/psv/peep) NA 11/15/17 08:47 Critical Value LZHANG 11/15/17 08:47 Sodium 139 mEq/L (136-145) 11/17/17 07:45 Potassium 4.3 mEq/L (3.5-5.1) 11/17/17 07:45 Chloride 112 mEq/L (98-107) H 11/17/17 07:45 Carbon Dioxide 16.3 mEq/L (21.0-31.0) L 11/17/17 07:45 Anion Gap 15.0 (7.0-16.0) 11/17/17 07:45 BUN 113 mg/dL (7-25) H* 11/17/17 07:45 Creatinine 2.6 mg/dL (0.7-1.3) H 11/17/17 07:45 Est GFR ( Amer) TNP 11/17/17 07:45 Est GFR (Non-Af Amer) TNP 11/17/17 07:45 BUN/Creatinine Ratio 43.5 11/17/17 07:45 Glucose 274 mg/dL (70-105) H D 11/17/17 07:45 POC Glucose 247 MG/DL (70 - 105) H 11/17/17 07:38 Hemoglobin A1c % 8.3 % (4.0-6.0) H 11/15/17 09:20 Whole Bld Lactic Acid 6.37 mmol/L (0.60-1.99) H* 11/15/17 11:20 Calcium 9.4 mg/dL (8.6-10.3) 01/10/18 07:45 Magnesium 2.3 mg/dL (1.9-2.7) 11/15/17 09:20 Total Bilirubin 1.0 mg/dL (0.3-1.0) 11/15/17 09:20 AST 112 U/L (13-39) H 11/15/17 09:20 ALT 79 U/L (7-52) H 11/15/17 09:20 Alkaline Phosphatase 54 U/L (34-104) 11/15/17 09:20 Troponin I 0.19 ng/mL (0.01-0.05) H* 11/15/17 09:01 B-Natriuretic Peptide 728.0 pg/mL (5.0-100.0) H 11/15/17 09:20 Total Protein 7.2 gm/dL (6.0-8.3) 11/15/17 09:20 Albumin 3.0 gm/dL (4.2-5.5) L 11/15/17 09:20 Globulin 4.2 gm/dL 11/15/17 09:20 Albumin/Globulin Ratio 0.7 (1.0-1.8) L 11/15/17 09:20 Triglycerides 201 mg/dL (<150) H 11/15/17 09:20 Cholesterol 75 mg/dL (<200) 11/15/17 09:20 LDL Cholesterol Direct 8 mg/dL (75-193) L 11/15/17 09:20 HDL Cholesterol 9 mg/dL (23-92) L 11/15/17 09:20 TSH 0.75 uIU/ml (0.34-5.60) 11/15/17 09:20 - Physical Exam Vitals and I&O: Vital Signs Temp 97.6 F 11/17/17 08:00 Pulse 107 11/17/17 12:42 Resp 18 11/17/17 11:28 BP 129/96 11/17/17 12:42 Pulse Ox 99 11/17/17 11:28 Intake & Output 11/16/17 11/17/17 11/17/17 18:59 06:59 18:59 Intake Total 1562.5 Output Total 700 200 Balance 862.5 -200 Weight (lbs) 60.781 kg 60.781 kg 60.781 kg Intake: Intake, IV Amount 1322.5 D5-0.45NS w/20 mEq KCL 1, 272.5 000 ml @ 150 mls/hr IV . Q6H40M [facility] Rx#:[id number] Levofloxacin 250mg/50mL 50 250 mg In Premix Fluid 1 bag @ 50 mls/hr IV Q24H [facility] Rx#:[id number] Sodium Chloride 0.9% 1, 1000 000 ml @ 125 mls/hr IV . Q8H [facility] Rx#:[id number] Oral 240 Output: Urine 700 200 Active Medications: Current Medications Acetaminophen (Tylenol 650mg Supp) 650 mg RC Q4H PRN PRN Reason: Fever > 101 Stop: 01/14/18 12:49 Albuterol/Ipratropium (Duoneb Neb) 3 ml HHN Q4HRT [facility] Stop: 01/15/18 18:59 Last Admin: 11/17/17 11:27 Dose: 3 ml Amlodipine Besylate (Norvasc) 5 mg PO HS [facility] Stop: 01/14/18 20:59 Last Admin: 11/16/17 21:04 Dose: 5 mg Aspirin (Aspirin Chewable) 81 mg PO DAILY [facility] Stop: 01/15/18 08:59 Last Admin: 11/17/17 12:42 Dose: 81 mg Atorvastatin Calcium (Lipitor) 20 mg PO HS [facility] Stop: 01/14/18 22:59 Last Admin: 11/16/17 21:00 Dose: 20 mg Carvedilol (Coreg) 3.125 mg PO BID [facility] Stop: 01/14/18 16:59 Last Admin: 11/17/17 12:42 Dose: 3.125 mg Fluconazole (Diflucan) 100 mg PO DAILY [facility] Stop: 01/17/18 08:59 Glucagon (Glucagen) 1 mg IM PRN [facility] Stop: 01/14/18 16:44 Last Admin: 11/16/17 17:21 Dose: Not Given Diltiazem HCl 125 mg/ Dextrose 125 mls @ 10 mls/hr IV TITR [facility]; 10 MG/HR PRN Reason: Protocol Stop: 01/14/18 11:44 Last Titration: 11/16/17 03:00 Dose: 0 mg/hr, 0 mls/hr Cefepime HCl 1 gm/ Sodium (Chloride) 50 mls @ 100 mls/hr IV Q24HR [facility] Stop: 01/14/18 17:59 Last Admin: 11/16/17 17:19 Dose: 100 mls/hr Levofloxacin 250 mg/ (Miscellaneous) 50 mls @ 50 mls/hr IV Q24H [facility] Stop: 01/15/18 09:59 Last Admin: 11/17/17 10:30 Dose: 100 mls/hr Sodium Chloride (Nacl 0.9%) 1,000 mls @ 125 mls/hr IV .Q8H [facility] Stop: 01/15/18 08:59 Last Admin: 11/16/17 21:05 Dose: 125 mls/hr Linezolid (Zyvox) 600 mg in 300 mls @ 200 mls/hr IV Q12HR@0900,2100 [facility] Stop: 01/16/18 11:59 Last Admin: 11/17/17 11:36 Dose: 200 mls/hr Insulin Aspart (Novolog Insulin Sliding Scale) 0 units SUBQ ACHS [facility] PRN Reason: Protocol Stop: 01/15/18 07:29 Last Admin: 11/17/17 12:31 Dose: 5 units Methylprednisolone Sodium Succinate (Solu-Medrol) 60 mg IVP Q6HR [facility] Stop: 01/14/18 17:59 Last Admin: 11/17/17 12:14 Dose: 60 mg Mirtazapine (Remeron) 30 mg PO HS [facility] Stop: 01/14/18 22:59 Last Admin: 11/16/17 21:00 Dose: 30 mg Miscellaneous (Apixaban [Eliquis]) 2.5 mg PO BID [facility] Stop: 01/14/18 16:59 Last Admin: 11/16/17 17:11 Dose: Not Given Miscellaneous (Melatonin [Melatonin]) 6 mg PO HS [facility] Stop: 01/14/18 20:59 Last Admin: 11/15/17 23:39 Dose: Not Given Neomycin/Polymyxin/Bacitracin (Triple Antibiotic Ointment) 1 appl TP DAILY [facility] Stop: 01/15/18 08:59 Last Admin: 11/17/17 09:00 Dose: 1 appl Olanzapine (Zyprexa) 10 mg PO TID [facility] PRN Reason: Protocol Stop: 01/14/18 20:59 Pantoprazole Sodium (Protonix) 40 mg PO DAILY [facility] Stop: 01/15/18 08:59 Last Admin: 11/17/17 12:42 Dose: 40 mg General: weak, demented HEENT: PERRLA, EOMI, anicteric sclerae, throat clear Neck: Supple, No JVD, No thyromegaly, No LAD Lungs: congested, ronchi Cardiovascular: Normal S2, other (IRRIGULAR) Extremities: clear Neurological: no change Internal Medicine Assmt/Plan - Assessment Assessment: 1.PNEUMONIA. 2.COPD. 3.AFIB. 4.DEMENTIA. 5.PENNY. 6.DEHYDRATION. - Plan Plan: CONTINUE ON CURRENT MEDICATION AND DIET. Nutritional Asmnt/Malnutr-PDOC - Dietary Evaluation Malnutrition Findings (Please click <Entered> for more info): Nutritional Asmnt/Malnutrition Start: 11/16/17 14: 06 Text: Status: Complete Freq: Document 11/16/17 14:06 LISA (Rec: 11/16/17 14:20 [email or web address]) Nutritional Asmnt/Malnutrition Patient General Information Nutritional Screening High Risk Consult Diagnosis actute renal failure, sepsis, PNA Pertinent Medical Hx/Surgical Hx hyperlipidemia, CHF, HTN, COPD , ICD device Subjective Information Consult received for admit blood sugar 263. Pt seen sleeping in bed at the time of visit. Spoke with RN, pt refused breakfast this morning possible d/t weakness and being sick. Current Diet Order/ Nutrition Support low chlesterol 300gm Pertinent Medications glucagen, novolog, remeron, nacl 0.9% Pertinent Labs 11/15 Na 137, K 4.6, Cl 110, BUN 105, Cr 2.9, GLucose 295, POC 246-370 since admit, a1c 8.3, calcium 9.2 Nutritional Hx/Data Height 1.85 m Height (Calculated Centimeters) 185.4 Current Weight (lbs) 62.55 kg Weight (Calculated Kilograms) 62.6 Weight (Calculated Grams) 79717.4 [place] Body Weight 184 % [place] Body Weight 75 Body Mass Index (BMI) 18.1 Weight Status Underweight GI Symptoms GI Symptoms None Last BM no record Skin Integrity/Comment: pressure area to heels Current %PO Negligible < 25% Estimated Nutritional Goals Calories/Kcals/Kg 25-30 Kcals Calculated 6348-3391 based on IBW considering underweight and sepsis Protein g/k-1.2 Protein Calculated 84-100 Fluid: ml 2089-250ml (1ml/kcal) Nutritional Problem 2. Problem Problem altered nutrition related lab values Etiology acute renal failure, hx of DM Signs/Symptoms: BUN 105, Cr 2.9, GLucose 295, POC 246-370, a1c 8.3, 1. Problem Problem increased nutrition needs ( calorie and protein) Etiology increased metabolic demand for healing and underweight Signs/Symptoms: dx of sepsis and PNA, BMI 18.2 Malnutrition Alert Protein-Calorie Malnutrition N/A Is there a minimum of two criteria No selected? Query Text:Check all the applicable criteria. A minimum of two criteria are recommended for diagnosis of either severe or non-severe malnutrition. Intervention/Recommendation Comments 1. Recommend modify diet to CCHO, low cholesteral diet for optimal glycemic control. RN made aware, will talk to MD 2. Monitor PO intake, wt, labs and skin integrity 3. F/U as high risk in 2-3 days, 11/18-11/19 Expected Outcomes/Goals Expected Outcomes/Goals 1. PO intake to meet at least 75% of nutritional needs. 2. Wt stability, skin to remain intact, labs to improve
[2017-11-17] MEDS ORDERED: Heparin Sod 1,000 Units/mL 10ml HD ONE (14:00)
--- NOTE | 2017-11-17 14:20 | Diagnostic Imaging Report ---
CHEST X-RAY: AP view INDICATION: Central line placement COMPARISON: Chest x-ray earlier the same day FINDINGS: Right-sided subclavian central line is in place with tip not well visualized due to overlying AICD leads but likely in the SVC. NG tube is seen within the stomach. Bibasal infiltrates are again noted. No evidence of a gross pneumothorax. No the left lung base is incompletely visualized. IMPRESSION: Interval right subclavian central line placement with tip not well visualized due to overlying AICD leads but probably in the SVC. No evidence of pneumothorax Bibasal infiltrates.
--- NOTE | 2017-11-17 14:41 | Consultation ---
DATE OF CONSULTATION: 11/17/2017 VASCULAR CONSULT REFERRING PHYSICIAN: /Dr. Frost. REASON FOR CONSULTATION: Acute renal failure, need to put the catheter for dialysis. Thank you for referring this patient to me. This is a 77-year-old male who comes in because of sepsis. He was short of breath, had chills and fever. PAST MEDICAL HISTORY: Includes diabetes, hypertension, and dementia. Because of increasing BUN and creatinine consult with Nephrology was made and Dr. Ferrer has determined that the patient will need hemodialysis. LABORATORY STUDIES: Hemoglobin is 11.9, platelet count is 129,000. BUN is 113, creatinine of 2.6, potassium is 4.3. Two physicians have signed the consent as the patient has no family. JOB# [id number]
--- NOTE | 2017-11-17 14:57 | Operative Report ---
DATE OF SURGERY: 11/17/2017 PREOPERATIVE DIAGNOSES: 1. Acute renal failure. 2. Hypertension. 3. Dementia. POSTOPERATIVE DIAGNOSES: 1. Acute renal failure. 2. Hypertension. 3. Dementia. OPERATION DONE: Placement of Matthew catheter, right subclavian vein under ultrasound guidance. PROCEDURE: The patient has a pacemaker in place in the left chest. The left chest was prepped with ChloraPrep and draped in appropriate manner. A 1% lidocaine was used to infiltrate the area identified on ultrasound. An incision was made and a size 18 needle was used to locate the vein. The guidewire was inserted, the dilator and then the double lumen catheter. The patient's chest x-ray will be done. The patient tolerated the procedure well. JOB# [id number]
[2017-11-17] MEDS: Cefepime 1 GM in Sodium Chloride 0.9% 50 ML IV SCH (17:27)
[2017-11-17] MEDS: Sodium Chloride 0.9% 1,000 ML IV SCH (17:38)
[2017-11-17] MEDS: GLUCAGON HCl 1 MG KIT IM SCH (18:30)
[2017-11-17] MEDS: Atorvastatin Calcium 10 MG TAB PO SCH (21:03)
[2017-11-18] MEDS: methylPREDNISolone SS 40 mg Vial IVP SCH ×4 (00:21→19:08)
[2017-11-18] MEDS: Albuterol/Ipratropium Neb 3 ML AERS HHN SCH ×6 (03:51→23:14)
[2017-11-18] MEDS: Sodium Chloride 0.9% 1,000 ML IV SCH ×2 (04:14→15:47)
[2017-11-18] MEDS ORDERED: GLUCAGON HCl 1 MG KIT IM PRN (06:03)
[2017-11-18 07:03] LABS: HEMOGLOBIN 11.6 gm/dL (12-16); LYMPHOCYTE ABSOLUTE 0.6 Th/cmm (1.5-3.0); MEAN CELL VOLUME 88.7 fl (80-99); MEAN CORPUSCULAR HEMOGLOBIN 30.3 pg (27.0-31.0); MEAN CORPUSCULAR HGB CONC 34.1 pg (28.0-36.0); MEAN PLATELET VOLUME 9.8 fl; MONOCYTE ABSOLUTE 0.2 Th/cmm (0.3-1.0); NEUTROPHILE ABSOLUTE 17.4 Th/cmm (1.8-8.0); PLATELET COUNT 111 Th/cmm (150-400); RED BLOOD COUNT 3.83 Mil/cmm (3.80-5.80); RED CELL DISTRIBUTION WIDTH 14.4 % (11.5-20.0)
[2017-11-18 07:26] LABS: WHITE BLOOD COUNT 18.2 Th/cmm (4.8-10.8)
[2017-11-18 07:34] LABS: ALB/GLOB RATIO 0.7 (1.0-1.8); ALBUMIN 2.3 gm/dL (4.2-5.5); ALKALINE PHOSPHATASE 101 U/L (34-104); BILIRUBIN,TOTAL 0.5 mg/dL (0.3-1.0); CALCIUM SERUM 8.7 mg/dL (8.6-10.3); CARBON DIOXIDE 21.3 mEq/L (21.0-31.0); CHLORIDE 107 mEq/L (98-107); CREATININE - SERUM 1.9 mg/dL (0.7-1.3); GLUCOSE 311 mg/dL (70-105); POTASSIUM SERUM 3.3 mEq/L (3.5-5.1); SGOT 151 U/L (13-39); SGPT/ALT 128 U/L (7-52); SODIUM SERUM 139 mEq/L (136-145); TOTAL PROTEIN,SERUM 5.5 gm/dL (6.0-8.3)
[2017-11-18] MEDS: INSULIN ASPART SLIDING SCALE 100 UNITS/ML UNIT SUBQ SCH ×4 (07:46→22:14)
[2017-11-18 07:59] LABS: BUN - UREA NITROGEN 85 mg/dL (7-25)
[2017-11-18] MEDS: Linezolid 600mg/300mL 600 MG/300 ML BAG IV SCH ×2 (08:41→22:15)
[2017-11-18] MEDS: Aspirin 81mg Chewable Tab PO SCH (08:42)
[2017-11-18] MEDS: Pantoprazole 40 mg EC Tab PO SCH (08:42)
[2017-11-18] MEDS: Triple Antibiotic Ointment 28gm tube TP SCH (08:44)
[2017-11-18 09:49] LABS: BAND NEUTROPHILE 3 % (0-10); LYMPHOCYTE 6 % (20-50); MONOCYTE 2 % (2-10); NEUTROPHILS 89 % (40-80); PLATELET ESTIMATE SLIGHT DECREASED (NORMAL); TOTAL CELLS COUNTED 100
[2017-11-18 10:36] LABS: ALLEN TEST PASS; pH 7.48 (7.35-7.45)
[2017-11-18] MEDS: Levofloxacin 250mg/50mL 250 MG in Premix Fluid 1 BAG IV SCH (10:55)
--- NOTE | 2017-11-18 16:29 | General Progress Note ---
Subjective - Review of Systems Subjective: pt seen and examined s/p HD yesterday Objective - Results Result Diagrams: 11/18/17 06:45 11/18/17 06:45 Recent Labs: Laboratory Last Values WBC 18.2 Th/cmm (4.8-10.8) H D 11/18/17 06:45 RBC 3.83 Mil/cmm (3.80-5.80) 11/18/17 06:45 Hgb 11.6 gm/dL (12-16) L 11/18/17 06:45 Hct 34.0 % (41.0-60) L 11/18/17 06:45 MCV 88.7 fl (80-99) 11/18/17 06:45 MCH 30.3 pg (27.0-31.0) 11/18/17 06:45 MCHC Differential 34.1 pg (28.0-36.0) 11/18/17 06:45 RDW 14.4 % (11.5-20.0) 11/18/17 06:45 Plt Count 111 Th/cmm (150-400) L 11/18/17 06:45 MPV 9.8 fl 11/18/17 06:45 Neutrophils % 94.7 % (40.0-80.0) H 11/17/17 07:45 Band Neutrophils % 3 % (0-10) 11/18/17 06:45 Lymphocytes % 3.7 % (20.0-50.0) L 11/17/17 07:45 Monocytes % 1.6 % (2.0-10.0) L 11/17/17 07:45 Eosinophils % 0.0 % (0.0-5.0) 11/17/17 07:45 Basophils % 0.0 % (0.0-2.0) 11/15/17 09:01 Neutrophils (Manual) 89 % (40-80) H 11/18/17 06:45 Lymphocytes 6 % (20-50) L 11/18/17 06:45 Monocytes 2 % (2-10) 11/18/17 06:45 Platelet Estimate SLIGHT DECREASED (NORMAL) 11/18/17 06:45 Specimen Source Arterial 11/18/17 10:29 Sample Site Right Radial 11/18/17 10:29 pH 7.48 (7.35-7.45) H 11/18/17 10:29 pCO2 29.0 mmHg (35.0-45.0) L 11/18/17 10:29 pO2 81.0 mmHg (80.0-100.0) 11/18/17 10:29 HCO3 24.1 mEq/L (20.0-26.0) 11/18/17 10:29 Base Excess -1.0 mEq/L (-3.0-3.0) 11/18/17 10:29 O2 Saturation 97.0 % (92.0-100.0) 11/18/17 10:29 Mario Test PASS 11/18/17 10:29 Vent Rate NA 11/15/17 08:47 Inspired O2 28 11/18/17 10:29 Tidal Volume NA 11/15/17 08:47 PEEP NA 11/15/17 08:47 Pressure (ins/psv/peep) NA 11/15/17 08:47 Critical Value PW 11/18/17 10:29 Sodium 139 mEq/L (136-145) 11/18/17 06:45 Potassium 3.3 mEq/L (3.5-5.1) L 11/18/17 06:45 Chloride 107 mEq/L (98-107) 11/18/17 06:45 Carbon Dioxide 21.3 mEq/L (21.0-31.0) 11/18/17 06:45 Anion Gap 14.0 (7.0-16.0) 11/18/17 06:45 BUN 85 mg/dL (7-25) H* 11/18/17 06:45 Creatinine 1.9 mg/dL (0.7-1.3) H 11/18/17 06:45 Est GFR ( Amer) TNP 11/18/17 06:45 Est GFR (Non-Af Amer) TNP 11/18/17 06:45 BUN/Creatinine Ratio 44.7 11/18/17 06:45 Glucose 311 mg/dL (70-105) H 11/18/17 06:45 POC Glucose 339 MG/DL (70 - 105) H 11/18/17 11:44 Hemoglobin A1c % 8.3 % (4.0-6.0) H 11/15/17 09:20 Whole Bld Lactic Acid 6.37 mmol/L (0.60-1.99) H* 11/15/17 11:20 Calcium 8.7 mg/dL (8.6-10.3) 11/18/17 06:45 Magnesium 2.3 mg/dL (1.9-2.7) 11/15/17 09:20 Total Bilirubin 0.5 mg/dL (0.3-1.0) 11/18/17 06:45 AST 151 U/L (13-39) H 11/18/17 06:45 ALT 128 U/L (7-52) H 11/18/17 06:45 Alkaline Phosphatase 101 U/L (34-104) 11/18/17 06:45 Troponin I 0.19 ng/mL (0.01-0.05) H* 11/15/17 09:01 B-Natriuretic Peptide 728.0 pg/mL (5.0-100.0) H 11/15/17 09:20 Total Protein 5.5 gm/dL (6.0-8.3) L 11/18/17 06:45 Albumin 2.3 gm/dL (4.2-5.5) L 11/18/17 06:45 Globulin 3.2 gm/dL 11/18/17 06:45 Albumin/Globulin Ratio 0.7 (1.0-1.8) L 11/18/17 06:45 Triglycerides 201 mg/dL (<150) H 11/15/17 09:20 Cholesterol 75 mg/dL (<200) 11/15/17 09:20 LDL Cholesterol Direct 8 mg/dL (75-193) L 11/15/17 09:20 HDL Cholesterol 9 mg/dL (23-92) L 11/15/17 09:20 TSH 0.75 uIU/ml (0.34-5.60) 11/15/17 09:20 - Physical Exam Vitals and I&O: Vital Signs Temp 98.6 F 11/18/17 16:00 Pulse 71 11/18/17 16:00 Resp 18 11/18/17 16:00 BP 155/64 11/18/17 16:00 Pulse Ox 97 11/18/17 16:00 Intake & Output 11/17/17 11/18/17 11/18/17 18:59 06:59 18:59 Intake Total 400 1300 1350 Output Total 650 Balance -250 1300 1350 Weight (lbs) 60.781 kg Intake: Intake, IV Amount 400 1300 1350 Cefepime 1 gm In Sodium 50 Chloride 0.9% 50 ml @ 100 mls/hr IV Q24HR [facility] Rx#: [id number] Levofloxacin 250mg/50mL 50 50 250 mg In Premix Fluid 1 bag @ 50 mls/hr IV Q24H [facility] Rx#:[id number] Linezolid 600mg/300mL 600 300 300 300 mg In 300 ml @ 200 mls/ hr IV Q12HR@0900,2100 [facility] Rx#:[id number] Sodium Chloride 0.9% 1, 1000 1000 000 ml @ 125 mls/hr IV . Q8H [facility] Rx#:[id number] Output: Urine 650 Active Medications: Current Medications Acetaminophen (Tylenol 650mg Supp) 650 mg RC Q4H PRN PRN Reason: Fever > 101 Stop: 01/14/18 12:49 Albuterol/Ipratropium (Duoneb Neb) 3 ml HHN Q4HRT [facility] Stop: 01/15/18 18:59 Last Admin: 11/18/17 15:04 Dose: 3 ml Amlodipine Besylate (Norvasc) 5 mg PO HS [facility] Stop: 01/14/18 20:59 Last Admin: 11/17/17 21:02 Dose: 5 mg Aspirin (Aspirin Chewable) 81 mg PO DAILY [facility] Stop: 01/15/18 08:59 Last Admin: 11/18/17 08:42 Dose: 81 mg Atorvastatin Calcium (Lipitor) 20 mg PO HS [facility] Stop: 01/14/18 22:59 Last Admin: 11/17/17 21:03 Dose: 20 mg Carvedilol (Coreg) 3.125 mg PO BID [facility] Stop: 01/14/18 16:59 Last Admin: 11/18/17 08:42 Dose: 3.125 mg Fluconazole (Diflucan) 100 mg PO DAILY [facility] Stop: 01/17/18 08:59 Last Admin: 11/18/17 08:43 Dose: 100 mg Glucagon (Glucagen) 1 mg IM PRN PRN PRN Reason: hypoglycemia Stop: 01/14/18 16:44 Diltiazem HCl 125 mg/ Dextrose 125 mls @ 10 mls/hr IV TITR [facility]; 10 MG/HR PRN Reason: Protocol Stop: 01/14/18 11:44 Last Titration: 11/16/17 03:00 Dose: 0 mg/hr, 0 mls/hr Cefepime HCl 1 gm/ Sodium (Chloride) 50 mls @ 100 mls/hr IV Q24HR [facility] Stop: 01/14/18 17:59 Last Infusion: 11/17/17 18:00 Dose: Infused Levofloxacin 250 mg/ (Miscellaneous) 50 mls @ 50 mls/hr IV Q24H [facility] Stop: 01/15/18 09:59 Last Infusion: 11/18/17 13:26 Dose: Infused Sodium Chloride (Nacl 0.9%) 1,000 mls @ 125 mls/hr IV .Q8H [facility] Stop: 01/15/18 08:59 Last Admin: 11/18/17 15:47 Dose: 125 mls/hr Linezolid (Zyvox) 600 mg in 300 mls @ 200 mls/hr IV Q12HR@0900,2100 [facility] Stop: 01/16/18 11:59 Last Infusion: 11/18/17 13:26 Dose: Infused Insulin Aspart (Novolog Insulin Sliding Scale) 0 units SUBQ ACHS [facility] PRN Reason: Protocol Stop: 01/15/18 07:29 Last Admin: 11/18/17 11:56 Dose: 9 units Methylprednisolone Sodium Succinate (Solu-Medrol) 60 mg IVP Q6HR [facility] Stop: 01/14/18 17:59 Last Admin: 11/18/17 11:58 Dose: 60 mg Mirtazapine (Remeron) 30 mg PO HS [facility] Stop: 01/14/18 22:59 Last Admin: 11/17/17 21:03 Dose: 30 mg Miscellaneous (Apixaban [Eliquis]) 2.5 mg PO BID [facility] Stop: 01/14/18 16:59 Last Admin: 11/16/17 17:11 Dose: Not Given Neomycin/Polymyxin/Bacitracin (Triple Antibiotic Ointment) 1 appl TP DAILY [facility] Stop: 01/15/18 08:59 Last Admin: 11/18/17 08:44 Dose: 1 appl Olanzapine (Zyprexa) 10 mg PO TID [facility] PRN Reason: Protocol Stop: 01/14/18 20:59 Last Admin: 11/18/17 10:55 Dose: 10 mg Pantoprazole Sodium (Protonix) 40 mg PO DAILY [facility] Stop: 01/15/18 08:59 Last Admin: 11/18/17 08:42 Dose: 40 mg General: Other (lethargic) HEENT: PERRLA Neck: Supple Cardiovascular: Regular rate, Normal S1, Normal S2, Other (multiple PVC) Lungs: Clear to auscultation Abdomen: Bowel sounds, Soft, Distended Extremities: Edema Psych/Mental Status: Other (lethargic) - Procedures Procedures: Procedures Procedure Code Date INSERT TUNNELED CV CATH 55051 11/15/17 INSERTION OF INFUSION DEV INTO R SUBCLAV VEIN, PERC APPROACH [id number] 11/15/17 Assessment/Plan - Problem List Patient Problems: All Active Problems SEVERE RESPIRATORY DISTRESS (Acute) - Assessment Assessment: 1.PNEUMONIA. 2.COPD. 3.AFIB. 4.DEMENTIA. 5.PENNY. - Plan Plan: pt renal function has not improved as much as I would have liked pt remains uremic and elevated BUN and acidosis remains a problem will need to do temp HD for now until pts renal function improves will order repeat HD in am Nutritional Asmnt/Malnutr-PDOC - Dietary Evaluation Malnutrition Findings (Please click <Entered> for more info): Nutritional Asmnt/Malnutrition Start: 11/16/17 14: 06 Text: Status: Complete Freq: Document 11/16/17 14:06 LISA (Rec: 11/16/17 14:20 LISA [email or web address]) Nutritional Asmnt/Malnutrition Patient General Information Nutritional Screening High Risk Consult Diagnosis actute renal failure, sepsis, PNA Pertinent Medical Hx/Surgical Hx hyperlipidemia, CHF, HTN, COPD , ICD device Subjective Information Consult received for admit blood sugar 263. Pt seen sleeping in bed at the time of visit. Spoke with RN, pt refused breakfast this morning possible d/t weakness and being sick. Current Diet Order/ Nutrition Support low chlesterol 300gm Pertinent Medications glucagen, novolog, remeron, nacl 0.9% Pertinent Labs 11/15 Na 137, K 4.6, Cl 110, BUN 105, Cr 2.9, GLucose 295, POC 246-370 since admit, a1c 8.3, calcium 9.2 Nutritional Hx/Data Height 1.85 m Height (Calculated Centimeters) 185.4 Current Weight (lbs) 62.55 kg Weight (Calculated Kilograms) 62.6 Weight (Calculated Grams) 22942.4 [place] Body Weight 184 % [place] Body Weight 75 Body Mass Index (BMI) 18.1 Weight Status Underweight GI Symptoms GI Symptoms None Last BM no record Skin Integrity/Comment: pressure area to heels Current %PO Negligible < 25% Estimated Nutritional Goals Calories/Kcals/Kg 25-30 Kcals Calculated 1502-7728 based on IBW considering underweight and sepsis Protein g/k-1.2 Protein Calculated 84-100 Fluid: ml 2089-250ml (1ml/kcal) Nutritional Problem 2. Problem Problem altered nutrition related lab values Etiology acute renal failure, hx of DM Signs/Symptoms: BUN 105, Cr 2.9, GLucose 295, POC 246-370, a1c 8.3, 1. Problem Problem increased nutrition needs ( calorie and protein) Etiology increased metabolic demand for healing and underweight Signs/Symptoms: dx of sepsis and PNA, BMI 18.2 Malnutrition Alert Protein-Calorie Malnutrition N/A Is there a minimum of two criteria No selected? Query Text:Check all the applicable criteria. A minimum of two criteria are recommended for diagnosis of either severe or non-severe malnutrition. Intervention/Recommendation Comments 1. Recommend modify diet to CCHO, low cholesteral diet for optimal glycemic control. RN made aware, will talk to MD 2. Monitor PO intake, wt, labs and skin integrity 3. F/U as high risk in 2-3 days, 11/18-11/19 Expected Outcomes/Goals Expected Outcomes/Goals 1. PO intake to meet at least 75% of nutritional needs. 2. Wt stability, skin to remain intact, labs to improve
[2017-11-18] MEDS: Cefepime 1 GM in Sodium Chloride 0.9% 50 ML IV SCH (17:08)
--- NOTE | 2017-11-18 18:45 | Internal Medicine Prog Note ---
Internal Medicine Subjective - Subjective Service Date: 11/18/17 Patient seen and examined:: with staff (HE IS ON DIALYSIS.HE IS ON NGT FEEDING.) Patient is:: awake, non-verbal, in bed, confused, congested Per staff patient has:: no adverse event (HE HAS POOR APETITE) Internal Medicine Objective - Results Result Diagrams: 11/18/17 06:45 11/18/17 06:45 Recent Labs: Laboratory Last Values WBC 18.2 Th/cmm (4.8-10.8) H D 11/18/17 06:45 RBC 3.83 Mil/cmm (3.80-5.80) 11/18/17 06:45 Hgb 11.6 gm/dL (12-16) L 11/18/17 06:45 Hct 34.0 % (41.0-60) L 11/18/17 06:45 MCV 88.7 fl (80-99) 11/18/17 06:45 MCH 30.3 pg (27.0-31.0) 11/18/17 06:45 MCHC Differential 34.1 pg (28.0-36.0) 11/18/17 06:45 RDW 14.4 % (11.5-20.0) 11/18/17 06:45 Plt Count 111 Th/cmm (150-400) L 11/18/17 06:45 MPV 9.8 fl 11/18/17 06:45 Neutrophils % 94.7 % (40.0-80.0) H 11/17/17 07:45 Band Neutrophils % 3 % (0-10) 11/18/17 06:45 Lymphocytes % 3.7 % (20.0-50.0) L 11/17/17 07:45 Monocytes % 1.6 % (2.0-10.0) L 11/17/17 07:45 Eosinophils % 0.0 % (0.0-5.0) 11/17/17 07:45 Basophils % 0.0 % (0.0-2.0) 11/15/17 09:01 Neutrophils (Manual) 89 % (40-80) H 11/18/17 06:45 Lymphocytes 6 % (20-50) L 11/18/17 06:45 Monocytes 2 % (2-10) 11/18/17 06:45 Platelet Estimate SLIGHT DECREASED (NORMAL) 11/18/17 06:45 Specimen Source Arterial 11/18/17 10:29 Sample Site Right Radial 11/18/17 10:29 pH 7.48 (7.35-7.45) H 11/18/17 10:29 pCO2 29.0 mmHg (35.0-45.0) L 11/18/17 10:29 pO2 81.0 mmHg (80.0-100.0) 11/18/17 10:29 HCO3 24.1 mEq/L (20.0-26.0) 11/18/17 10:29 Base Excess -1.0 mEq/L (-3.0-3.0) 11/18/17 10:29 O2 Saturation 97.0 % (92.0-100.0) 11/18/17 10:29 Mario Test PASS 11/18/17 10:29 Vent Rate NA 11/15/17 08:47 Inspired O2 28 11/18/17 10:29 Tidal Volume NA 11/15/17 08:47 PEEP NA 11/15/17 08:47 Pressure (ins/psv/peep) NA 11/15/17 08:47 Critical Value PW 11/18/17 10:29 Sodium 139 mEq/L (136-145) 11/18/17 06:45 Potassium 3.3 mEq/L (3.5-5.1) L 11/18/17 06:45 Chloride 107 mEq/L (98-107) 11/18/17 06:45 Carbon Dioxide 21.3 mEq/L (21.0-31.0) 11/18/17 06:45 Anion Gap 14.0 (7.0-16.0) 11/18/17 06:45 BUN 85 mg/dL (7-25) H* 11/18/17 06:45 Creatinine 1.9 mg/dL (0.7-1.3) H 11/18/17 06:45 Est GFR ( Amer) TNP 11/18/17 06:45 Est GFR (Non-Af Amer) TNP 11/18/17 06:45 BUN/Creatinine Ratio 44.7 11/18/17 06:45 Glucose 311 mg/dL (70-105) H 11/18/17 06:45 POC Glucose 254 MG/DL (70 - 105) H 11/18/17 16:54 Hemoglobin A1c % 8.3 % (4.0-6.0) H 11/15/17 09:20 Whole Bld Lactic Acid 6.37 mmol/L (0.60-1.99) H* 11/15/17 11:20 Calcium 8.7 mg/dL (8.6-10.3) 11/18/17 06:45 Magnesium 2.3 mg/dL (1.9-2.7) 11/15/17 09:20 Total Bilirubin 0.5 mg/dL (0.3-1.0) 11/18/17 06:45 AST 151 U/L (13-39) H 11/18/17 06:45 ALT 128 U/L (7-52) H 11/18/17 06:45 Alkaline Phosphatase 101 U/L (34-104) 11/18/17 06:45 Troponin I 0.19 ng/mL (0.01-0.05) H* 11/15/17 09:01 B-Natriuretic Peptide 728.0 pg/mL (5.0-100.0) H 11/15/17 09:20 Total Protein 5.5 gm/dL (6.0-8.3) L 11/18/17 06:45 Albumin 2.3 gm/dL (4.2-5.5) L 11/18/17 06:45 Globulin 3.2 gm/dL 11/18/17 06:45 Albumin/Globulin Ratio 0.7 (1.0-1.8) L 11/18/17 06:45 Triglycerides 201 mg/dL (<150) H 11/15/17 09:20 Cholesterol 75 mg/dL (<200) 11/15/17 09:20 LDL Cholesterol Direct 8 mg/dL (75-193) L 11/15/17 09:20 HDL Cholesterol 9 mg/dL (23-92) L 11/15/17 09:20 TSH 0.75 uIU/ml (0.34-5.60) 11/15/17 09:20 - Physical Exam Vitals and I&O: Vital Signs Temp 98.6 F 11/18/17 16:00 Pulse 52 11/18/17 16:56 Resp 18 11/18/17 16:00 BP 155/64 11/18/17 16:56 Pulse Ox 97 11/18/17 16:00 Intake & Output 11/17/17 11/18/17 11/18/17 18:59 06:59 18:59 Intake Total 400 1300 1350 Output Total 650 Balance -250 1300 1350 Weight (lbs) 60.781 kg Intake: Intake, IV Amount 400 1300 1350 Cefepime 1 gm In Sodium 50 Chloride 0.9% 50 ml @ 100 mls/hr IV Q24HR [facility] Rx#: [id number] Levofloxacin 250mg/50mL 50 50 250 mg In Premix Fluid 1 bag @ 50 mls/hr IV Q24H [facility] Rx#:[id number] Linezolid 600mg/300mL 600 300 300 300 mg In 300 ml @ 200 mls/ hr IV Q12HR@0900,2100 [facility] Rx#:[id number] Sodium Chloride 0.9% 1, 1000 1000 000 ml @ 125 mls/hr IV . Q8H [facility] Rx#:[id number] Output: Urine 650 Active Medications: Current Medications Acetaminophen (Tylenol 650mg Supp) 650 mg RC Q4H PRN PRN Reason: Fever > 101 Stop: 01/14/18 12:49 Albuterol/Ipratropium (Duoneb Neb) 3 ml HHN Q4HRT [facility] Stop: 01/15/18 18:59 Last Admin: 11/18/17 15:04 Dose: 3 ml Amlodipine Besylate (Norvasc) 5 mg PO HS [facility] Stop: 01/14/18 20:59 Last Admin: 11/17/17 21:02 Dose: 5 mg Aspirin (Aspirin Chewable) 81 mg PO DAILY [facility] Stop: 01/15/18 08:59 Last Admin: 11/18/17 08:42 Dose: 81 mg Atorvastatin Calcium (Lipitor) 20 mg PO HS [facility] Stop: 01/14/18 22:59 Last Admin: 11/17/17 21:03 Dose: 20 mg Carvedilol (Coreg) 3.125 mg PO BID [facility] Stop: 01/14/18 16:59 Last Admin: 11/18/17 16:56 Dose: 3.125 mg Fluconazole (Diflucan) 100 mg PO DAILY [facility] Stop: 01/17/18 08:59 Last Admin: 11/18/17 08:43 Dose: 100 mg Glucagon (Glucagen) 1 mg IM PRN PRN PRN Reason: hypoglycemia Stop: 01/14/18 16:44 Diltiazem HCl 125 mg/ Dextrose 125 mls @ 10 mls/hr IV TITR [facility]; 10 MG/HR PRN Reason: Protocol Stop: 01/14/18 11:44 Last Titration: 11/16/17 03:00 Dose: 0 mg/hr, 0 mls/hr Cefepime HCl 1 gm/ Sodium (Chloride) 50 mls @ 100 mls/hr IV Q24HR [facility] Stop: 01/14/18 17:59 Last Admin: 11/18/17 17:08 Dose: 100 mls/hr Levofloxacin 250 mg/ (Miscellaneous) 50 mls @ 50 mls/hr IV Q24H [facility] Stop: 01/15/18 09:59 Last Infusion: 11/18/17 13:26 Dose: Infused Sodium Chloride (Nacl 0.9%) 1,000 mls @ 125 mls/hr IV .Q8H [facility] Stop: 01/15/18 08:59 Last Admin: 11/18/17 15:47 Dose: 125 mls/hr Linezolid (Zyvox) 600 mg in 300 mls @ 200 mls/hr IV Q12HR@0900,2100 [facility] Stop: 01/16/18 11:59 Last Infusion: 11/18/17 13:26 Dose: Infused Insulin Aspart (Novolog Insulin Sliding Scale) 0 units SUBQ ACHS [facility] PRN Reason: Protocol Stop: 01/15/18 07:29 Last Admin: 11/18/17 17:49 Dose: 7 units Methylprednisolone Sodium Succinate (Solu-Medrol) 60 mg IVP Q6HR [facility] Stop: 01/14/18 17:59 Last Admin: 11/18/17 11:58 Dose: 60 mg Mirtazapine (Remeron) 30 mg PO HS [facility] Stop: 01/14/18 22:59 Last Admin: 11/17/17 21:03 Dose: 30 mg Miscellaneous (Apixaban [Eliquis]) 2.5 mg PO BID [facility] Stop: 01/14/18 16:59 Last Admin: 11/16/17 17:11 Dose: Not Given Neomycin/Polymyxin/Bacitracin (Triple Antibiotic Ointment) 1 appl TP DAILY [facility] Stop: 01/15/18 08:59 Last Admin: 11/18/17 08:44 Dose: 1 appl Olanzapine (Zyprexa) 10 mg PO TID [facility] PRN Reason: Protocol Stop: 01/14/18 20:59 Last Admin: 11/18/17 16:56 Dose: 10 mg Pantoprazole Sodium (Protonix) 40 mg PO DAILY [facility] Stop: 01/15/18 08:59 Last Admin: 11/18/17 08:42 Dose: 40 mg General: weak, demented HEENT: PERRLA, EOMI, anicteric sclerae, throat clear Neck: Supple, No JVD, No thyromegaly, No LAD Lungs: congested, ronchi Cardiovascular: Normal S2, other (IRRIGULAR) Extremities: clear Neurological: no change - Procedures Procedures: Procedures Procedure Code Date INSERT TUNNELED CV CATH [id number] 11/15/17 INSERTION OF INFUSION DEV INTO R SUBCLAV VEIN, PERC APPROACH [id number] 11/15/17 Internal Medicine Assmt/Plan - Assessment Assessment: 1.PNEUMONIA. 2.COPD. 3.AFIB. 4.DEMENTIA. 5.PENNY. 6.DEHYDRATION. - Plan Plan: CONTINUE ON CURRENT MEDICATION AND DIET. Nutritional Asmnt/Malnutr-PDOC - Dietary Evaluation Malnutrition Findings (Please click <Entered> for more info): Nutritional Asmnt/Malnutrition Start: 11/16/17 14: 06 Text: Status: Complete Freq: Document 11/16/17 14:06 LISA (Rec: 11/16/17 14:20 [email or web address]) Nutritional Asmnt/Malnutrition Patient General Information Nutritional Screening High Risk Consult Diagnosis actute renal failure, sepsis, PNA Pertinent Medical Hx/Surgical Hx hyperlipidemia, CHF, HTN, COPD , ICD device Subjective Information Consult received for admit blood sugar 263. Pt seen sleeping in bed at the time of visit. Spoke with RN, pt refused breakfast this morning possible d/t weakness and being sick. Current Diet Order/ Nutrition Support low chlesterol 300gm Pertinent Medications glucagen, novolog, remeron, nacl 0.9% Pertinent Labs 11/15 Na 137, K 4.6, Cl 110, BUN 105, Cr 2.9, GLucose 295, POC 246-370 since admit, a1c 8.3, calcium 9.2 Nutritional Hx/Data Height 1.85 m Height (Calculated Centimeters) 185.4 Current Weight (lbs) 62.55 kg Weight (Calculated Kilograms) 62.6 Weight (Calculated Grams) 02860.4 [place] Body Weight 184 % [place] Body Weight 75 Body Mass Index (BMI) 18.1 Weight Status Underweight GI Symptoms GI Symptoms None Last BM no record Skin Integrity/Comment: pressure area to heels Current %PO Negligible < 25% Estimated Nutritional Goals Calories/Kcals/Kg 25-30 Kcals Calculated 9429-9216 based on IBW considering underweight and sepsis Protein g/k-1.2 Protein Calculated 84-100 Fluid: ml 2089-250ml (1ml/kcal) Nutritional Problem 2. Problem Problem altered nutrition related lab values Etiology acute renal failure, hx of DM Signs/Symptoms: BUN 105, Cr 2.9, GLucose 295, POC 246-370, a1c 8.3, 1. Problem Problem increased nutrition needs ( calorie and protein) Etiology increased metabolic demand for healing and underweight Signs/Symptoms: dx of sepsis and PNA, BMI 18.2 Malnutrition Alert Protein-Calorie Malnutrition N/A Is there a minimum of two criteria No selected? Query Text:Check all the applicable criteria. A minimum of two criteria are recommended for diagnosis of either severe or non-severe malnutrition. Intervention/Recommendation Comments 1. Recommend modify diet to CCHO, low cholesteral diet for optimal glycemic control. RN made aware, will talk to MD 2. Monitor PO intake, wt, labs and skin integrity 3. F/U as high risk in 2-3 days, 11/18-11/19 Expected Outcomes/Goals Expected Outcomes/Goals 1. PO intake to meet at least 75% of nutritional needs. 2. Wt stability, skin to remain intact, labs to improve
[2017-11-18] MEDS: Atorvastatin Calcium 10 MG TAB PO SCH (22:10)
[2017-11-18] MEDS: D5-0.45NS 1,000 ML IV SCH (22:50)
[2017-11-19] MEDS: methylPREDNISolone SS 40 mg Vial IVP SCH ×4 (00:38→18:12)
[2017-11-19] MEDS ORDERED: Albuterol/Ipratropium Neb 3 ML AERS HHN ONE (02:37)
[2017-11-19] MEDS: Albuterol/Ipratropium Neb 3 ML AERS HHN SCH ×6 (02:45→23:55)
[2017-11-19 06:07] LABS: HEMATOCRIT 33.7 % (41.0-60); HEMOGLOBIN 11.5 gm/dL (12-16); LYMPHOCYTE ABSOLUTE 0.6 Th/cmm (1.5-3.0); MEAN CELL VOLUME 89.2 fl (80-99); MEAN CORPUSCULAR HEMOGLOBIN 30.5 pg (27.0-31.0); MEAN CORPUSCULAR HGB CONC 34.2 pg (28.0-36.0); MEAN PLATELET VOLUME 9.8 fl; MONOCYTE ABSOLUTE 0.1 Th/cmm (0.3-1.0); NEUTROPHILE ABSOLUTE 22.5 Th/cmm (1.8-8.0); PLATELET COUNT 104 Th/cmm (150-400); RED BLOOD COUNT 3.78 Mil/cmm (3.80-5.80); RED CELL DISTRIBUTION WIDTH 14.6 % (11.5-20.0)
[2017-11-19 06:23] LABS: WHITE BLOOD COUNT 23.2 Th/cmm (4.8-10.8)
[2017-11-19 06:34] LABS: NEUTROPHILS 87 % (40-80); TOTAL CELLS COUNTED 100
[2017-11-19 06:35] LABS: BAND NEUTROPHILE 6 % (0-10); LYMPHOCYTE 6 % (20-50); MONOCYTE 1 % (2-10); PLATELET ESTIMATE SLIGHT DECREASED (NORMAL)
[2017-11-19 06:36] LABS: ALB/GLOB RATIO 0.7 (1.0-1.8); ALBUMIN 2.2 gm/dL (4.2-5.5); ALKALINE PHOSPHATASE 106 U/L (34-104); ANION GAP 14.1 (7.0-16.0); BILIRUBIN,TOTAL 0.4 mg/dL (0.3-1.0); CALCIUM SERUM 8.9 mg/dL (8.6-10.3); CARBON DIOXIDE 20.4 mEq/L (21.0-31.0); CHLORIDE 106 mEq/L (98-107); POTASSIUM SERUM 3.5 mEq/L (3.5-5.1); SGOT 62 U/L (13-39); SGPT/ALT 99 U/L (7-52); SODIUM SERUM 137 mEq/L (136-145); TOTAL PROTEIN,SERUM 5.6 gm/dL (6.0-8.3)
[2017-11-19 06:39] LABS: BUN - UREA NITROGEN 100 mg/dL (7-25)
[2017-11-19] MEDS: INSULIN ASPART SLIDING SCALE 100 UNITS/ML UNIT SUBQ SCH ×4 (07:14→21:38)
[2017-11-19] MEDS: Linezolid 600mg/300mL 600 MG/300 ML BAG IV SCH ×2 (08:57→20:53)
[2017-11-19] MEDS: Pantoprazole 40 mg EC Tab PO SCH (08:59)
[2017-11-19] MEDS: Aspirin 81mg Chewable Tab PO SCH (08:59)
[2017-11-19] MEDS: Triple Antibiotic Ointment 28gm tube TP SCH (09:00)
--- NOTE | 2017-11-19 09:06 | Diagnostic Imaging Report ---
Exam: Chest portable HISTORY: Shortness of breath. Findings: Portable examination of chest at the 0840 hours reviewed compared to prior study of 11/17/2017 The study demonstrates a decrease in the right basilar infiltrate and effusion. Mediastinal structures midline the left lung parenchyma is well aerated. Tubes and lines unchanged appearance. Left-sided pacemaker is noted. IMPRESSION: partial resolution of right basilar infiltrate. Clinical correlation recommended.
[2017-11-19] MEDS: Levofloxacin 250mg/50mL 250 MG in Premix Fluid 1 BAG IV SCH (10:26)
[2017-11-19 12:43] LABS: GLUCOSE 417 mg/dL (70-105)
--- NOTE | 2017-11-19 12:46 | General Progress Note ---
Subjective - Review of Systems Service Date: 11/19/17 Subjective: pt seen and examined. planned for HD today Objective - Results Result Diagrams: 11/19/17 05:30 11/19/17 05:30 Recent Labs: Laboratory Last Values WBC 23.2 Th/cmm (4.8-10.8) H* D 11/19/17 05:30 RBC 3.78 Mil/cmm (3.80-5.80) L 11/19/17 05:30 Hgb 11.5 gm/dL (12-16) L 11/19/17 05:30 Hct 33.7 % (41.0-60) L 11/19/17 05:30 MCV 89.2 fl (80-99) 11/19/17 05:30 MCH 30.5 pg (27.0-31.0) 11/19/17 05:30 MCHC Differential 34.2 pg (28.0-36.0) 11/19/17 05:30 RDW 14.6 % (11.5-20.0) 11/19/17 05:30 Plt Count 104 Th/cmm (150-400) L 11/19/17 05:30 MPV 9.8 fl 11/19/17 05:30 Neutrophils % 94.7 % (40.0-80.0) H 11/17/17 07:45 Band Neutrophils % 6 % (0-10) 11/19/17 05:30 Lymphocytes % 3.7 % (20.0-50.0) L 11/17/17 07:45 Monocytes % 1.6 % (2.0-10.0) L 11/17/17 07:45 Eosinophils % 0.0 % (0.0-5.0) 11/17/17 07:45 Basophils % 0.0 % (0.0-2.0) 11/15/17 09:01 Neutrophils (Manual) 87 % (40-80) H 11/19/17 05:30 Lymphocytes 6 % (20-50) L 11/19/17 05:30 Monocytes 1 % (2-10) L 11/19/17 05:30 Platelet Estimate SLIGHT DECREASED (NORMAL) 11/19/17 05:30 Specimen Source Arterial 11/18/17 10:29 Sample Site Right Radial 11/18/17 10:29 pH 7.48 (7.35-7.45) H 11/18/17 10:29 pCO2 29.0 mmHg (35.0-45.0) L 11/18/17 10:29 pO2 81.0 mmHg (80.0-100.0) 11/18/17 10:29 HCO3 24.1 mEq/L (20.0-26.0) 11/18/17 10:29 Base Excess -1.0 mEq/L (-3.0-3.0) 11/18/17 10:29 O2 Saturation 97.0 % (92.0-100.0) 11/18/17 10:29 Mario Test PASS 11/18/17 10:29 Vent Rate NA 11/15/17 08:47 Inspired O2 28 11/18/17 10:29 Tidal Volume NA 11/15/17 08:47 PEEP NA 11/15/17 08:47 Pressure (ins/psv/peep) NA 11/15/17 08:47 Critical Value PW 11/18/17 10:29 Sodium 137 mEq/L (136-145) 11/19/17 05:30 Potassium 3.5 mEq/L (3.5-5.1) 11/19/17 05:30 Chloride 106 mEq/L (98-107) 11/19/17 05:30 Carbon Dioxide 20.4 mEq/L (21.0-31.0) L 11/19/17 05:30 Anion Gap 14.1 (7.0-16.0) 11/19/17 05:30 BUN 100 mg/dL (7-25) H* 11/19/17 05:30 Creatinine 2.0 mg/dL (0.7-1.3) H 11/19/17 05:30 Est GFR ( Amer) TNP 11/19/17 05:30 Est GFR (Non-Af Amer) TN 11/19/17 05:30 BUN/Creatinine Ratio 50.0 11/19/17 05:30 Glucose 311 mg/dL (70-105) H 11/18/17 06:45 POC Glucose 368 MG/DL (70 - 105) H 11/19/17 05:41 Hemoglobin A1c % 8.3 % (4.0-6.0) H 11/15/17 09:20 Whole Bld Lactic Acid 6.37 mmol/L (0.60-1.99) H* 11/15/17 11:20 Calcium 8.9 mg/dL (8.6-10.3) 11/19/17 05:30 Magnesium 2.3 mg/dL (1.9-2.7) 11/15/17 09:20 Total Bilirubin 0.4 mg/dL (0.3-1.0) 11/19/17 05:30 AST 62 U/L (13-39) H 11/19/17 05:30 ALT 99 U/L (7-52) H 11/19/17 05:30 Alkaline Phosphatase 106 U/L (34-104) H 11/19/17 05:30 Troponin I 0.19 ng/mL (0.01-0.05) H* 11/15/17 09:01 B-Natriuretic Peptide 728.0 pg/mL (5.0-100.0) H 11/15/17 09:20 Total Protein 5.6 gm/dL (6.0-8.3) L 11/19/17 05:30 Albumin 2.2 gm/dL (4.2-5.5) L 11/19/17 05:30 Globulin 3.4 gm/dL 11/19/17 05:30 Albumin/Globulin Ratio 0.7 (1.0-1.8) L 11/19/17 05:30 Triglycerides 201 mg/dL (<150) H 11/15/17 09:20 Cholesterol 75 mg/dL (<200) 11/15/17 09:20 LDL Cholesterol Direct 8 mg/dL (75-193) L 11/15/17 09:20 HDL Cholesterol 9 mg/dL (23-92) L 11/15/17 09:20 TSH 0.75 uIU/ml (0.34-5.60) 11/15/17 09:20 Hepatitis A IgM Ab NEGATIVE 11/17/17 17:40 Hep Bs Antigen NEGATIVE 11/17/17 17:40 Hep B Core IgM Ab NEGATIVE 11/17/17 17:40 Hepatitis C Antibody <0.1 11/17/17 17:40 - Physical Exam Vitals and I&O: Vital Signs Temp 97.6 F 11/19/17 08:00 Pulse 77 11/19/17 12:25 Resp 20 11/19/17 12:25 BP 164/60 11/19/17 08:59 Pulse Ox 96 11/19/17 12:25 Intake & Output 11/18/17 11/19/17 11/19/17 18:59 06:59 18:59 Intake Total 1350 1030 Balance 1350 1030 Weight (lbs) 73.074 kg Intake: Intake, IV Amount 1350 350 Cefepime 1 gm In Sodium 50 Chloride 0.9% 50 ml @ 100 mls/hr IV Q24HR [facility] Rx#: [id number] Levofloxacin 250mg/50mL 50 250 mg In Premix Fluid 1 bag @ 50 mls/hr IV Q24H [facility] Rx#:[id number] Linezolid 600mg/300mL 600 300 300 mg In 300 ml @ 200 mls/ hr IV Q12HR@0900,2100 [facility] Rx#:[id number] Sodium Chloride 0.9% 1, 1000 000 ml @ 125 mls/hr IV . Q8H [facility] Rx#:[id number] Oral 0 Tube Feeding 480 Other 200 Other: # Bowel Movements 0 Active Medications: Current Medications Acetaminophen (Tylenol 650mg Supp) 650 mg RC Q4H PRN PRN Reason: Fever > 101 Stop: 01/14/18 12:49 Albuterol/Ipratropium (Duoneb Neb) 3 ml HHN Q4HRT [facility] Stop: 01/15/18 18:59 Last Admin: 11/19/17 12:24 Dose: 3 ml Amlodipine Besylate (Norvasc) 5 mg PO HS [facility] Stop: 01/14/18 20:59 Last Admin: 11/18/17 22:10 Dose: 5 mg Aspirin (Aspirin Chewable) 81 mg PO DAILY [facility] Stop: 01/15/18 08:59 Last Admin: 11/19/17 08:59 Dose: 81 mg Atorvastatin Calcium (Lipitor) 20 mg PO HS [facility] Stop: 01/14/18 22:59 Last Admin: 11/18/17 22:10 Dose: 20 mg Carvedilol (Coreg) 3.125 mg PO BID [facility] Stop: 01/14/18 16:59 Last Admin: 11/19/17 08:59 Dose: 3.125 mg Fluconazole (Diflucan) 100 mg PO DAILY [facility] Stop: 01/17/18 08:59 Last Admin: 11/19/17 08:59 Dose: 100 mg Glucagon (Glucagen) 1 mg IM PRN PRN PRN Reason: hypoglycemia Stop: 01/14/18 16:44 Diltiazem HCl 125 mg/ Dextrose 125 mls @ 10 mls/hr IV TITR [facility]; 10 MG/HR PRN Reason: Protocol Stop: 01/14/18 11:44 Last Titration: 11/16/17 03:00 Dose: 0 mg/hr, 0 mls/hr Cefepime HCl 1 gm/ Sodium (Chloride) 50 mls @ 100 mls/hr IV Q24HR [facility] Stop: 01/14/18 17:59 Last Infusion: 11/18/17 19:00 Dose: Infused Levofloxacin 250 mg/ (Miscellaneous) 50 mls @ 50 mls/hr IV Q24H [facility] Stop: 01/15/18 09:59 Last Admin: 11/19/17 10:26 Dose: 50 mls/hr Linezolid (Zyvox) 600 mg in 300 mls @ 200 mls/hr IV Q12HR@0900,2100 [facility] Stop: 01/16/18 11:59 Last Admin: 11/19/17 08:57 Dose: 200 mls/hr Dextrose/Sodium Chloride (D5-0.45ns) 1,000 mls @ 75 mls/hr IV .[id number] [facility] Stop: 01/17/18 20:21 Last Admin: 11/18/17 22:50 Dose: 75 mls/hr Insulin Aspart (Novolog Insulin Sliding Scale) 0 units SUBQ ACHS [facility] PRN Reason: Protocol Stop: 01/15/18 07:29 Last Admin: 11/19/17 11:48 Dose: 13 units Methylprednisolone Sodium Succinate (Solu-Medrol) 60 mg IVP Q6HR [facility] Stop: 01/14/18 17:59 Last Admin: 11/19/17 11:32 Dose: 60 mg Mirtazapine (Remeron) 30 mg PO HS [facility] Stop: 01/14/18 22:59 Last Admin: 11/18/17 22:10 Dose: 30 mg Miscellaneous (Apixaban [Eliquis]) 2.5 mg PO BID [facility] Stop: 01/14/18 16:59 Last Admin: 11/16/17 17:11 Dose: Not Given Neomycin/Polymyxin/Bacitracin (Triple Antibiotic Ointment) 1 appl TP DAILY [facility] Stop: 01/15/18 08:59 Last Admin: 11/19/17 09:00 Dose: 1 appl Olanzapine (Zyprexa) 10 mg PO TID [facility] PRN Reason: Protocol Stop: 01/14/18 20:59 Last Admin: 11/19/17 08:59 Dose: 10 mg Pantoprazole Sodium (Protonix) 40 mg PO DAILY [facility] Stop: 01/15/18 08:59 Last Admin: 11/19/17 08:59 Dose: 40 mg General: Other (lethargic) HEENT: PERRLA Neck: Supple Cardiovascular: Regular rate, Normal S1, Normal S2, Other (multiple PVC) Lungs: Clear to auscultation Abdomen: Bowel sounds, Soft, Distended Extremities: Edema Psych/Mental Status: Other (lethargic) - Procedures Procedures: Procedures Procedure Code Date INSERT TUNNELED CV CATH [id number] 11/15/17 INSERTION OF INFUSION DEV INTO R SUBCLAV VEIN, PERC APPROACH [id number] 11/15/17 Assessment/Plan - Problem List Patient Problems: All Active Problems SEVERE RESPIRATORY DISTRESS (Acute) - Assessment Assessment: 1.PNEUMONIA. 2.COPD. 3.AFIB. 4.DEMENTIA. 5.PENNY. - Plan Plan: pt renal function has not improved as much as I would have liked pt remains uremic and elevated BUN and acidosis remains a problem will need to do temp HD for now until pts renal function improves will order repeat HD will check labs in am Nutritional Asmnt/Malnutr-PDOC - Dietary Evaluation Malnutrition Findings (Please click <Entered> for more info): Nutritional Asmnt/Malnutrition Start: 11/16/17 14: 06 Text: Status: Complete Freq: Document 11/16/17 14:06 COSMO (Rec: 11/16/17 14:20 [email or web address]) Nutritional Asmnt/Malnutrition Patient General Information Nutritional Screening High Risk Consult Diagnosis actute renal failure, sepsis, PNA Pertinent Medical Hx/Surgical Hx hyperlipidemia, CHF, HTN, COPD , ICD device Subjective Information Consult received for admit blood sugar 263. Pt seen sleeping in bed at the time of visit. Spoke with RN, pt refused breakfast this morning possible d/t weakness and being sick. Current Diet Order/ Nutrition Support low chlesterol 300gm Pertinent Medications glucagen, novolog, remeron, nacl 0.9% Pertinent Labs 1/8 Na 137, K 4.6, Cl 110, BUN 105, Cr 2.9, GLucose 295, POC 246-370 since admit, a1c 8.3, calcium 9.2 Nutritional Hx/Data Height 1.85 m Height (Calculated Centimeters) 185.4 Current Weight (lbs) 62.55 kg Weight (Calculated Kilograms) 62.6 Weight (Calculated Grams) 95211.4 [place] Body Weight 184 % [place] Body Weight 75 Body Mass Index (BMI) 18.1 Weight Status Underweight GI Symptoms GI Symptoms None Last BM no record Skin Integrity/Comment: pressure area to heels Current %PO Negligible < 25% Estimated Nutritional Goals Calories/Kcals/Kg 25-30 Kcals Calculated 1235-3187 based on IBW considering underweight and sepsis Protein g/k-1.2 Protein Calculated 84-100 Fluid: ml 2089-250ml (1ml/kcal) Nutritional Problem 2. Problem Problem altered nutrition related lab values Etiology acute renal failure, hx of DM Signs/Symptoms: BUN 105, Cr 2.9, GLucose 295, POC 246-370, a1c 8.3, 1. Problem Problem increased nutrition needs ( calorie and protein) Etiology increased metabolic demand for healing and underweight Signs/Symptoms: dx of sepsis and PNA, BMI 18.2 Malnutrition Alert Protein-Calorie Malnutrition N/A Is there a minimum of two criteria No selected? Query Text:Check all the applicable criteria. A minimum of two criteria are recommended for diagnosis of either severe or non-severe malnutrition. Intervention/Recommendation Comments 1. Recommend modify diet to CCHO, low cholesteral diet for optimal glycemic control. RN made aware, will talk to MD 2. Monitor PO intake, wt, labs and skin integrity 3. F/U as high risk in 2-3 days, 11/18-11/19 Expected Outcomes/Goals Expected Outcomes/Goals 1. PO intake to meet at least 75% of nutritional needs. 2. Wt stability, skin to remain intact, labs to improve
[2017-11-19] MEDS: Insulin Detemir 100 units/mL 10mL Vial SUBQ SCH ×2 (15:05→18:08)
[2017-11-19] MEDS ORDERED: Insulin Detemir 100 units/mL 10mL Vial SUBQ SCH (17:00)
[2017-11-19] MEDS: Cefepime 1 GM in Sodium Chloride 0.9% 50 ML IV SCH (17:54)
--- NOTE | 2017-11-19 19:43 | Internal Medicine Prog Note ---
Internal Medicine Subjective - Subjective Service Date: 11/19/17 Patient seen and examined:: with staff (HE IS ON DIALYSIS) Patient is:: awake, non-verbal, in bed, confused, congested Per staff patient has:: no adverse event (HE HAS POOR APETITE) Internal Medicine Objective - Results Result Diagrams: 11/19/17 05:30 11/19/17 05:30 Recent Labs: Laboratory Last Values WBC 23.2 Th/cmm (4.8-10.8) H* D 11/19/17 05:30 RBC 3.78 Mil/cmm (3.80-5.80) L 11/19/17 05:30 Hgb 11.5 gm/dL (12-16) L 11/19/17 05:30 Hct 33.7 % (41.0-60) L 11/19/17 05:30 MCV 89.2 fl (80-99) 11/19/17 05:30 MCH 30.5 pg (27.0-31.0) 11/19/17 05:30 MCHC Differential 34.2 pg (28.0-36.0) 11/19/17 05:30 RDW 14.6 % (11.5-20.0) 11/19/17 05:30 Plt Count 104 Th/cmm (150-400) L 11/19/17 05:30 MPV 9.8 fl 11/19/17 05:30 Neutrophils % 94.7 % (40.0-80.0) H 11/17/17 07:45 Band Neutrophils % 6 % (0-10) 11/19/17 05:30 Lymphocytes % 3.7 % (20.0-50.0) L 11/17/17 07:45 Monocytes % 1.6 % (2.0-10.0) L 11/17/17 07:45 Eosinophils % 0.0 % (0.0-5.0) 11/17/17 07:45 Basophils % 0.0 % (0.0-2.0) 11/15/17 09:01 Neutrophils (Manual) 87 % (40-80) H 11/19/17 05:30 Lymphocytes 6 % (20-50) L 11/19/17 05:30 Monocytes 1 % (2-10) L 11/19/17 05:30 Platelet Estimate SLIGHT DECREASED (NORMAL) 11/19/17 05:30 Specimen Source Arterial 11/18/17 10:29 Sample Site Right Radial 11/18/17 10:29 pH 7.48 (7.35-7.45) H 11/18/17 10:29 pCO2 29.0 mmHg (35.0-45.0) L 11/18/17 10:29 pO2 81.0 mmHg (80.0-100.0) 11/18/17 10:29 HCO3 24.1 mEq/L (20.0-26.0) 11/18/17 10:29 Base Excess -1.0 mEq/L (-3.0-3.0) 11/18/17 10:29 O2 Saturation 97.0 % (92.0-100.0) 11/18/17 10:29 Mario Test PASS 11/18/17 10:29 Vent Rate NA 11/15/17 08:47 Inspired O2 28 11/18/17 10:29 Tidal Volume NA 11/15/17 08:47 PEEP NA 11/15/17 08:47 Pressure (ins/psv/peep) NA 11/15/17 08:47 Critical Value PW 11/18/17 10:29 Sodium 137 mEq/L (136-145) 11/19/17 05:30 Potassium 3.5 mEq/L (3.5-5.1) 11/19/17 05:30 Chloride 106 mEq/L (98-107) 11/19/17 05:30 Carbon Dioxide 20.4 mEq/L (21.0-31.0) L 11/19/17 05:30 Anion Gap 14.1 (7.0-16.0) 11/19/17 05:30 BUN 100 mg/dL (7-25) H* 11/19/17 05:30 Creatinine 2.0 mg/dL (0.7-1.3) H 11/19/17 05:30 Est GFR ( Amer) TNP 11/19/17 05:30 Est GFR (Non-Af Amer) TNP 11/19/17 05:30 BUN/Creatinine Ratio 50.0 11/19/17 05:30 Glucose 508 mg/dL (70-105) H* 11/19/17 12:30 POC Glucose 368 MG/DL (70 - 105) H 11/19/17 05:41 Hemoglobin A1c % 8.3 % (4.0-6.0) H 11/15/17 09:20 Whole Bld Lactic Acid 6.37 mmol/L (0.60-1.99) H* 11/15/17 11:20 Calcium 8.9 mg/dL (8.6-10.3) 11/19/17 05:30 Magnesium 2.3 mg/dL (1.9-2.7) 11/15/17 09:20 Total Bilirubin 0.4 mg/dL (0.3-1.0) 11/19/17 05:30 AST 62 U/L (13-39) H 11/19/17 05:30 ALT 99 U/L (7-52) H 11/19/17 05:30 Alkaline Phosphatase 106 U/L (34-104) H 11/19/17 05:30 Troponin I 0.19 ng/mL (0.01-0.05) H* 11/15/17 09:01 B-Natriuretic Peptide 728.0 pg/mL (5.0-100.0) H 11/15/17 09:20 Total Protein 5.6 gm/dL (6.0-8.3) L 11/19/17 05:30 Albumin 2.2 gm/dL (4.2-5.5) L 11/19/17 05:30 Globulin 3.4 gm/dL 11/19/17 05:30 Albumin/Globulin Ratio 0.7 (1.0-1.8) L 11/19/17 05:30 Triglycerides 201 mg/dL (<150) H 11/15/17 09:20 Cholesterol 75 mg/dL (<200) 11/15/17 09:20 LDL Cholesterol Direct 8 mg/dL (75-193) L 11/15/17 09:20 HDL Cholesterol 9 mg/dL (23-92) L 11/15/17 09:20 TSH 0.75 uIU/ml (0.34-5.60) 11/15/17 09:20 Hepatitis A IgM Ab NEGATIVE 11/17/17 17:40 Hep Bs Antigen NEGATIVE 11/17/17 17:40 Hep B Core IgM Ab NEGATIVE 11/17/17 17:40 Hepatitis C Antibody <0.1 11/17/17 17:40 - Physical Exam Vitals and I&O: Vital Signs Temp 97.2 F 11/19/17 12:00 Pulse 59 11/19/17 18:52 Resp 18 11/19/17 18:52 BP 155/64 11/19/17 17:53 Pulse Ox 95 11/19/17 18:52 Intake & Output 11/19/17 11/19/17 11/20/17 06:59 18:59 06:59 Intake Total 1030 Balance 1030 Weight (lbs) 73.074 kg Intake: Intake, IV Amount 350 Cefepime 1 gm In Sodium 50 Chloride 0.9% 50 ml @ 100 mls/hr IV Q24HR COUNT INCLUDES THE [facility] Rx#: [id number] Linezolid 600mg/300mL 600 300 mg In 300 ml @ 200 mls/ hr IV Q12HR@0900,2100 COUNT INCLUDES THE [facility] Rx#:[id number] Oral 0 Tube Feeding 480 Other 200 Other: # Bowel Movements 0 Active Medications: Current Medications Acetaminophen (Tylenol 650mg Supp) 650 mg RC Q4H PRN PRN Reason: Fever > 101 Stop: 01/14/18 12:49 Albuterol/Ipratropium (Duoneb Neb) 3 ml HHN Q4HRT RYAN Stop: 01/15/18 18:59 Last Admin: 11/19/17 18:50 Dose: 3 ml Amlodipine Besylate (Norvasc) 5 mg PO HS COUNT INCLUDES THE [facility] Stop: 01/14/18 20:59 Last Admin: 11/18/17 22:10 Dose: 5 mg Aspirin (Aspirin Chewable) 81 mg PO DAILY RYAN Stop: 01/15/18 08:59 Last Admin: 11/19/17 08:59 Dose: 81 mg Atorvastatin Calcium (Lipitor) 20 mg PO HS RYAN Stop: 01/14/18 22:59 Last Admin: 11/18/17 22:10 Dose: 20 mg Carvedilol (Coreg) 3.125 mg PO BID RYAN Stop: 01/14/18 16:59 Last Admin: 11/19/17 17:53 Dose: Not Given Fluconazole (Diflucan) 100 mg PO DAILY RYNA Stop: 01/17/18 08:59 Last Admin: 11/19/17 08:59 Dose: 100 mg Glucagon (Glucagen) 1 mg IM PRN PRN PRN Reason: hypoglycemia Stop: 01/14/18 16:44 Diltiazem HCl 125 mg/ Dextrose 125 mls @ 10 mls/hr IV TITR RYAN; 10 MG/HR PRN Reason: Protocol Stop: 01/14/18 11:44 Last Titration: 11/16/17 03:00 Dose: 0 mg/hr, 0 mls/hr Cefepime HCl 1 gm/ Sodium (Chloride) 50 mls @ 100 mls/hr IV Q24HR COUNT INCLUDES THE [facility] Stop: 01/14/18 17:59 Last Admin: 11/19/17 17:54 Dose: Not Given Levofloxacin 250 mg/ (Miscellaneous) 50 mls @ 50 mls/hr IV Q24H COUNT INCLUDES THE [facility] Stop: 01/15/18 09:59 Last Admin: 11/19/17 10:26 Dose: 50 mls/hr Linezolid (Zyvox) 600 mg in 300 mls @ 200 mls/hr IV Q12HR@0900,2100 COUNT INCLUDES THE [facility] Stop: 01/16/18 11:59 Last Admin: 11/19/17 08:57 Dose: 200 mls/hr Dextrose/Sodium Chloride (D5-0.45ns) 1,000 mls @ 75 mls/hr IV .[id number] COUNT INCLUDES THE [facility] Stop: 01/17/18 20:21 Last Admin: 11/18/17 22:50 Dose: 75 mls/hr Insulin Aspart (Novolog Insulin Sliding Scale) 0 units SUBQ ACHS RYAN PRN Reason: Protocol Stop: 01/15/18 07:29 Last Admin: 11/19/17 18:07 Dose: 11 units Insulin Detemir (Levemir Insulin) 10 units SUBQ BID COUNT INCLUDES THE [facility] PRN Reason: Protocol Stop: 01/18/18 13:36 Last Admin: 11/19/17 18:08 Dose: 10 units Methylprednisolone Sodium Succinate (Solu-Medrol) 60 mg IVP Q6HR COUNT INCLUDES THE [facility] Stop: 01/14/18 17:59 Last Admin: 11/19/17 18:12 Dose: Not Given Mirtazapine (Remeron) 30 mg PO HS COUNT INCLUDES [facility] Stop: 01/14/18 22:59 Last Admin: 11/18/17 22:10 Dose: 30 mg Miscellaneous (Apixaban [Eliquis]) 2.5 mg PO BID COUNT INCLUDES [facility] Stop: 01/14/18 16:59 Last Admin: 11/16/17 17:11 Dose: Not Given Neomycin/Polymyxin/Bacitracin (Triple Antibiotic Ointment) 1 appl TP DAILY COUNT INCLUDES THE [facility] Stop: 01/15/18 08:59 Last Admin: 11/19/17 09:00 Dose: 1 appl Olanzapine (Zyprexa) 10 mg PO TID RYAN PRN Reason: Protocol Stop: 01/14/18 20:59 Last Admin: 11/19/17 17:51 Dose: Not Given Pantoprazole Sodium (Protonix) 40 mg PO DAILY COUNT INCLUDES [facility] Stop: 01/15/18 08:59 Last Admin: 11/19/17 08:59 Dose: 40 mg General: weak, demented HEENT: PERRLA, EOMI, anicteric sclerae, throat clear Neck: Supple, No JVD, No thyromegaly, No LAD Lungs: congested, ronchi Cardiovascular: Normal S2, other (IRRIGULAR) Extremities: clear Neurological: no change - Procedures Procedures: Procedures Procedure Code Date INSERT TUNNELED CV CATH 91710 11/15/17 INSERTION OF INFUSION DEV INTO R SUBCLAV VEIN, PERC APPROACH 60V012J 11/15/17 Internal Medicine Assmt/Plan - Assessment Assessment: 1.PNEUMONIA. 2.COPD. 3.AFIB. 4.DEMENTIA. 5.PENNY. 6.DEHYDRATION. - Plan Plan: CONTINUE ON CURRENT MEDICATION AND DIET.LTAC EVALUATION. Nutritional Asmnt/Malnutr-PDOC - Dietary Evaluation Malnutrition Findings (Please click <Entered> for more info): Nutritional Asmnt/Malnutrition Start: 11/16/17 14: 06 Text: Status: Complete Freq: Document 11/16/17 14:06 LISA (Rec: 11/16/17 14:20 [email or web address]) Nutritional Asmnt/Malnutrition Patient General Information Nutritional Screening High Risk Consult Diagnosis actute renal failure, sepsis, PNA Pertinent Medical Hx/Surgical Hx hyperlipidemia, CHF, HTN, COPD , ICD device Subjective Information Consult received for admit blood sugar 263. Pt seen sleeping in bed at the time of visit. Spoke with RN, pt refused breakfast this morning possible d/t weakness and being sick. Current Diet Order/ Nutrition Support low chlesterol 300gm Pertinent Medications glucagen, novolog, remeron, nacl 0.9% Pertinent Labs 11/15 Na 137, K 4.6, Cl 110, BUN 105, Cr 2.9, GLucose 295, POC 246-370 since admit, a1c 8.3, calcium 9.2 Nutritional Hx/Data Height 1.85 m Height (Calculated Centimeters) 185.4 Current Weight (lbs) 62.55 kg Weight (Calculated Kilograms) 62.6 Weight (Calculated Grams) 27913.4 [place] Body Weight 184 % [place] Body Weight 75 Body Mass Index (BMI) 18.1 Weight Status Underweight GI Symptoms GI Symptoms None Last BM no record Skin Integrity/Comment: pressure area to heels Current %PO Negligible < 25% Estimated Nutritional Goals Calories/Kcals/Kg 25-30 Kcals Calculated 1913-6510 based on IBW considering underweight and sepsis Protein g/k-1.2 Protein Calculated 84-100 Fluid: ml 2089-250ml (1ml/kcal) Nutritional Problem 2. Problem Problem altered nutrition related lab values Etiology acute renal failure, hx of DM Signs/Symptoms: BUN 105, Cr 2.9, GLucose 295, POC 246-370, a1c 8.3, 1. Problem Problem increased nutrition needs ( calorie and protein) Etiology increased metabolic demand for healing and underweight Signs/Symptoms: dx of sepsis and PNA, BMI 18.2 Malnutrition Alert Protein-Calorie Malnutrition N/A Is there a minimum of two criteria No selected? Query Text:Check all the applicable criteria. A minimum of two criteria are recommended for diagnosis of either severe or non-severe malnutrition. Intervention/Recommendation Comments 1. Recommend modify diet to CCHO, low cholesteral diet for optimal glycemic control. RN made aware, will talk to MD 2. Monitor PO intake, wt, labs and skin integrity 3. F/U as high risk in 2-3 days, 11/18-11/19 Expected Outcomes/Goals Expected Outcomes/Goals 1. PO intake to meet at least 75% of nutritional needs. 2. Wt stability, skin to remain intact, labs to improve
[2017-11-19] MEDS: D5-0.45NS 1,000 ML IV SCH (20:55)
[2017-11-19] MEDS: Atorvastatin Calcium 10 MG TAB PO SCH (21:31)
[2017-11-20] MEDS: methylPREDNISolone SS 40 mg Vial IVP SCH ×4 (00:29→17:12)
[2017-11-20] MEDS: Albuterol/Ipratropium Neb 3 ML AERS HHN SCH ×6 (03:04→23:31)
[2017-11-20] MEDS: INSULIN ASPART SLIDING SCALE 100 UNITS/ML UNIT SUBQ SCH ×4 (06:45→21:13)
[2017-11-20] MEDS: Linezolid 600mg/300mL 600 MG/300 ML BAG IV SCH ×2 (08:45→21:14)
[2017-11-20] MEDS: Triple Antibiotic Ointment 28gm tube TP SCH (08:45)
[2017-11-20] MEDS: Pantoprazole 40 mg EC Tab PO SCH (08:45)
[2017-11-20] MEDS: Aspirin 81mg Chewable Tab PO SCH (08:45)
[2017-11-20] MEDS: Insulin Detemir 100 units/mL 10mL Vial SUBQ SCH ×2 (08:47→17:14)
[2017-11-20] MEDS: Levofloxacin 250mg/50mL 250 MG in Premix Fluid 1 BAG IV SCH (10:26)
--- NOTE | 2017-11-20 13:34 | General Progress Note ---
Subjective - Review of Systems Service Date: 11/20/17 Subjective: pt seen and examined. confused Objective - Results Result Diagrams: 11/19/17 05:30 11/19/17 05:30 Recent Labs: Laboratory Last Values WBC 23.2 Th/cmm (4.8-10.8) H* D 11/19/17 05:30 RBC 3.78 Mil/cmm (3.80-5.80) L 11/19/17 05:30 Hgb 11.5 gm/dL (12-16) L 11/19/17 05:30 Hct 33.7 % (41.0-60) L 11/19/17 05:30 MCV 89.2 fl (80-99) 11/19/17 05:30 MCH 30.5 pg (27.0-31.0) 11/19/17 05:30 MCHC Differential 34.2 pg (28.0-36.0) 11/19/17 05:30 RDW 14.6 % (11.5-20.0) 11/19/17 05:30 Plt Count 104 Th/cmm (150-400) L 11/19/17 05:30 MPV 9.8 fl 11/19/17 05:30 Neutrophils % 94.7 % (40.0-80.0) H 11/17/17 07:45 Band Neutrophils % 6 % (0-10) 11/19/17 05:30 Lymphocytes % 3.7 % (20.0-50.0) L 11/17/17 07:45 Monocytes % 1.6 % (2.0-10.0) L 11/17/17 07:45 Eosinophils % 0.0 % (0.0-5.0) 11/17/17 07:45 Basophils % 0.0 % (0.0-2.0) 11/15/17 09:01 Neutrophils (Manual) 87 % (40-80) H 11/19/17 05:30 Lymphocytes 6 % (20-50) L 11/19/17 05:30 Monocytes 1 % (2-10) L 11/19/17 05:30 Platelet Estimate SLIGHT DECREASED (NORMAL) 11/19/17 05:30 Specimen Source Arterial 11/18/17 10:29 Sample Site Right Radial 11/18/17 10:29 pH 7.48 (7.35-7.45) H 11/18/17 10:29 pCO2 29.0 mmHg (35.0-45.0) L 11/18/17 10:29 pO2 81.0 mmHg (80.0-100.0) 11/18/17 10:29 HCO3 24.1 mEq/L (20.0-26.0) 11/18/17 10:29 Base Excess -1.0 mEq/L (-3.0-3.0) 11/18/17 10:29 O2 Saturation 97.0 % (92.0-100.0) 11/18/17 10:29 Mario Test PASS 11/18/17 10:29 Vent Rate NA 11/15/17 08:47 Inspired O2 28 11/18/17 10:29 Tidal Volume NA 11/15/17 08:47 PEEP NA 11/15/17 08:47 Pressure (ins/psv/peep) NA 11/15/17 08:47 Critical Value PW 11/18/17 10:29 Sodium 137 mEq/L (136-145) 11/19/17 05:30 Potassium 3.5 mEq/L (3.5-5.1) 11/19/17 05:30 Chloride 106 mEq/L (98-107) 11/19/17 05:30 Carbon Dioxide 20.4 mEq/L (21.0-31.0) L 11/19/17 05:30 Anion Gap 14.1 (7.0-16.0) 11/19/17 05:30 BUN 100 mg/dL (7-25) H* 11/19/17 05:30 Creatinine 2.0 mg/dL (0.7-1.3) H 11/19/17 05:30 Est GFR ( Amer) [facility] 11/19/17 05:30 Est GFR (Non-Af Amer) [facility] 11/19/17 05:30 BUN/Creatinine Ratio 50.0 11/19/17 05:30 Glucose 508 mg/dL (70-105) H* 11/19/17 12:30 POC Glucose 368 MG/DL (70 - 105) H 11/19/17 05:41 Hemoglobin A1c % 8.3 % (4.0-6.0) H 11/15/17 09:20 Whole Bld Lactic Acid 6.37 mmol/L (0.60-1.99) H* 11/15/17 11:20 Calcium 8.9 mg/dL (8.6-10.3) 11/19/17 05:30 Magnesium 2.3 mg/dL (1.9-2.7) 11/15/17 09:20 Total Bilirubin 0.4 mg/dL (0.3-1.0) 11/19/17 05:30 AST 62 U/L (13-39) H 11/19/17 05:30 ALT 99 U/L (7-52) H 11/19/17 05:30 Alkaline Phosphatase 106 U/L (34-104) H 11/19/17 05:30 Troponin I 0.19 ng/mL (0.01-0.05) H* 11/15/17 09:01 B-Natriuretic Peptide 728.0 pg/mL (5.0-100.0) H 11/15/17 09:20 Total Protein 5.6 gm/dL (6.0-8.3) L 11/19/17 05:30 Albumin 2.2 gm/dL (4.2-5.5) L 11/19/17 05:30 Globulin 3.4 gm/dL 11/19/17 05:30 Albumin/Globulin Ratio 0.7 (1.0-1.8) L 11/19/17 05:30 Triglycerides 201 mg/dL (<150) H 11/15/17 09:20 Cholesterol 75 mg/dL (<200) 11/15/17 09:20 LDL Cholesterol Direct 8 mg/dL (75-193) L 11/15/17 09:20 HDL Cholesterol 9 mg/dL (23-92) L 11/15/17 09:20 TSH 0.75 uIU/ml (0.34-5.60) 11/15/17 09:20 Hepatitis A IgM Ab NEGATIVE 11/17/17 17:40 Hep Bs Antigen NEGATIVE 11/17/17 17:40 Hep B Core IgM Ab NEGATIVE 11/17/17 17:40 Hepatitis C Antibody <0.1 11/17/17 17:40 - Physical Exam Vitals and I&O: Vital Signs Temp 96.8 F 11/20/17 11:00 Pulse 85 11/20/17 11:00 Resp 18 11/20/17 12:00 BP 148/82 11/20/17 11:00 Pulse Ox 96 11/20/17 10:21 Intake & Output 11/19/17 11/20/17 11/20/17 18:59 06:59 18:59 Intake Total 1850 450 Output Total 500 450 Balance 1350 0 Weight (lbs) 73.028 kg 73.284 kg Intake: Intake, IV Amount 1350 300 D5-0.45NS 1,000 ml @ 75 1000 mls/hr IV .[id number] [facility] Rx #:[id number] Levofloxacin 250mg/50mL 50 250 mg In Premix Fluid 1 bag @ 50 mls/hr IV Q24H [facility] Rx#:[id number] Linezolid 600mg/300mL 600 300 300 mg In 300 ml @ 200 mls/ hr IV Q12HR@0900,2100 [facility] Rx#:[id number] Tube Feeding 500 Other 150 Output: Urine 500 450 Other: # Bowel Movements 0 Active Medications: Current Medications Acetaminophen (Tylenol 650mg Supp) 650 mg RC Q4H PRN PRN Reason: Fever > 101 Stop: 01/14/18 12:49 Albuterol/Ipratropium (Duoneb Neb) 3 ml HHN Q4HRT [facility] Stop: 01/15/18 18:59 Last Admin: 11/20/17 10:21 Dose: 3 ml Amlodipine Besylate (Norvasc) 5 mg PO HS [facility] Stop: 01/14/18 20:59 Last Admin: 11/19/17 21:33 Dose: 5 mg Aspirin (Aspirin Chewable) 81 mg PO DAILY RYAN Stop: 01/15/18 08:59 Last Admin: 11/20/17 08:45 Dose: 81 mg Atorvastatin Calcium (Lipitor) 20 mg PO HS [facility] Stop: 01/14/18 22:59 Last Admin: 11/19/17 21:31 Dose: 20 mg Carvedilol (Coreg) 3.125 mg PO BID [facility] Stop: 01/14/18 16:59 Last Admin: 11/20/17 08:44 Dose: 3.125 mg Fluconazole (Diflucan) 100 mg PO DAILY [facility] Stop: 01/17/18 08:59 Last Admin: 11/20/17 08:44 Dose: 100 mg Glucagon (Glucagen) 1 mg IM PRN PRN PRN Reason: hypoglycemia Stop: 01/14/18 16:44 Diltiazem HCl 125 mg/ Dextrose 125 mls @ 10 mls/hr IV TITR RYAN; 10 MG/HR PRN Reason: Protocol Stop: 01/14/18 11:44 Last Titration: 11/16/17 03:00 Dose: 0 mg/hr, 0 mls/hr Cefepime HCl 1 gm/ Sodium (Chloride) 50 mls @ 100 mls/hr IV Q24HR [facility] Stop: 01/14/18 17:59 Last Admin: 11/19/17 17:54 Dose: Not Given Levofloxacin 250 mg/ (Miscellaneous) 50 mls @ 50 mls/hr IV Q24H [facility] Stop: 01/15/18 09:59 Last Admin: 11/20/17 10:26 Dose: 50 mls/hr Linezolid (Zyvox) 600 mg in 300 mls @ 200 mls/hr IV Q12HR@0900,2100 [facility] Stop: 01/16/18 11:59 Last Admin: 11/20/17 08:45 Dose: 200 mls/hr Dextrose/Sodium Chloride (D5-0.45ns) 1,000 mls @ 75 mls/hr IV .[id number] [facility] Stop: 01/17/18 20:21 Last Admin: 11/19/17 20:55 Dose: 75 mls/hr Insulin Aspart (Novolog Insulin Sliding Scale) 0 units SUBQ ACHS RYAN PRN Reason: Protocol Stop: 01/15/18 07:29 Last Admin: 11/20/17 11:49 Dose: 11 units Insulin Detemir (Levemir Insulin) 10 units SUBQ BID YRAN PRN Reason: Protocol Stop: 01/18/18 13:36 Last Admin: 11/20/17 08:47 Dose: 10 units Methylprednisolone Sodium Succinate (Solu-Medrol) 60 mg IVP Q6HR [facility] Stop: 01/14/18 17:59 Last Admin: 11/20/17 11:45 Dose: 60 mg Mirtazapine (Remeron) 30 mg PO HS [facility] Stop: 01/14/18 22:59 Last Admin: 11/19/17 21:32 Dose: 30 mg Miscellaneous (Apixaban [Eliquis]) 2.5 mg PO BID [facility] Stop: 01/14/18 16:59 Last Admin: 11/16/17 17:11 Dose: Not Given Neomycin/Polymyxin/Bacitracin (Triple Antibiotic Ointment) 1 appl TP DAILY [facility] Stop: 01/15/18 08:59 Last Admin: 11/20/17 08:45 Dose: 1 appl Olanzapine (Zyprexa) 10 mg PO TID RYAN PRN Reason: Protocol Stop: 01/14/18 20:59 Last Admin: 11/20/17 13:30 Dose: 10 mg Pantoprazole Sodium (Protonix) 40 mg PO DAILY [facility] Stop: 01/15/18 08:59 Last Admin: 11/20/17 08:45 Dose: 40 mg General: Other (lethargic) HEENT: PERRLA Neck: Supple Cardiovascular: Regular rate, Normal S1, Normal S2, Other (multiple PVC) Lungs: Other (rhonchi) Abdomen: Bowel sounds, Soft, Distended Extremities: Edema Psych/Mental Status: Other (lethargic) - Procedures Procedures: Procedures Procedure Code Date INSERT TUNNELED CV CATH 91500 11/15/17 INSERTION OF INFUSION DEV INTO R SUBCLAV VEIN, PERC APPROACH [id number] 11/15/17 Assessment/Plan - Problem List Patient Problems: All Active Problems SEVERE RESPIRATORY DISTRESS (Acute) - Assessment Assessment: 1.PNEUMONIA. 2.COPD. 3.AFIB. 4.DEMENTIA. 5.PENNY. - Plan Plan: recheck labs in am will order HD PRN plan for transfer to LTAC Nutritional Asmnt/Malnutr-PDOC - Dietary Evaluation Malnutrition Findings (Please click <Entered> for more info): Nutritional Asmnt/Malnutrition Start: 11/16/17 14: 06 Text: Status: Complete Freq: Document 11/16/17 14:06 SANDEEP (Rec: 11/16/17 14:20 [email or web address]) Nutritional Asmnt/Malnutrition Patient General Information Nutritional Screening High Risk Consult Diagnosis actute renal failure, sepsis, PNA Pertinent Medical Hx/Surgical Hx hyperlipidemia, CHF, HTN, COPD , ICD device Subjective Information Consult received for admit blood sugar 263. Pt seen sleeping in bed at the time of visit. Spoke with RN, pt refused breakfast this morning possible d/t weakness and being sick. Current Diet Order/ Nutrition Support low chlesterol 300gm Pertinent Medications glucagen, novolog, remeron, nacl 0.9% Pertinent Labs 11/15 Na 137, K 4.6, Cl 110, BUN 105, Cr 2.9, GLucose 295, POC 246-370 since admit, a1c 8.3, calcium 9.2 Nutritional Hx/Data Height 1.85 m Height (Calculated Centimeters) 185.4 Current Weight (lbs) 62.55 kg Weight (Calculated Kilograms) 62.6 Weight (Calculated Grams) 37499.4 [place] Body Weight 184 % [place] Body Weight 75 Body Mass Index (BMI) 18.1 Weight Status Underweight GI Symptoms GI Symptoms None Last BM no record Skin Integrity/Comment: pressure area to heels Current %PO Negligible < 25% Estimated Nutritional Goals Calories/Kcals/Kg 25-30 Kcals Calculated 7923-0801 based on IBW considering underweight and sepsis Protein g/k-1.2 Protein Calculated 84-100 Fluid: ml 2089-2507ml (1ml/kcal) Nutritional Problem 2. Problem Problem altered nutrition related lab values Etiology acute renal failure, hx of DM Signs/Symptoms: BUN 105, Cr 2.9, GLucose 295, POC 246-370, a1c 8.3, 1. Problem Problem increased nutrition needs ( calorie and protein) Etiology increased metabolic demand for healing and underweight Signs/Symptoms: dx of sepsis and PNA, BMI 18.2 Malnutrition Alert Protein-Calorie Malnutrition N/A Is there a minimum of two criteria No selected? Query Text:Check all the applicable criteria. A minimum of two criteria are recommended for diagnosis of either severe or non-severe malnutrition. Intervention/Recommendation Comments 1. Recommend modify diet to CCHO, low cholesteral diet for optimal glycemic control. RN made aware, will talk to MD 2. Monitor PO intake, wt, labs and skin integrity 3. F/U as high risk in 2-3 days, 11/18-11/19 Expected Outcomes/Goals Expected Outcomes/Goals 1. PO intake to meet at least 75% of nutritional needs. 2. Wt stability, skin to remain intact, labs to improve
[2017-11-20] MEDS: D5-0.45NS 1,000 ML IV SCH (15:16)
[2017-11-20] MEDS ORDERED: Probiotic Screen MC PRN (16:30)
[2017-11-20] MEDS: Cefepime 1 GM in Sodium Chloride 0.9% 50 ML IV SCH (17:10)
[2017-11-20] MEDS: Atorvastatin Calcium 10 MG TAB PO SCH (21:13)
--- NOTE | 2017-11-20 22:16 | Internal Medicine Prog Note ---
Internal Medicine Subjective - Subjective Service Date: 11/20/17 Patient seen and examined:: with staff (HE IS STILL LETHARGIC) Patient is:: awake, non-verbal, in bed, confused, congested Per staff patient has:: no adverse event (HE HAS POOR APETITE) Internal Medicine Objective - Results Result Diagrams: 11/19/17 05:30 11/19/17 05:30 Recent Labs: Laboratory Last Values WBC 23.2 Th/cmm (4.8-10.8) H* D 11/19/17 05:30 RBC 3.78 Mil/cmm (3.80-5.80) L 11/19/17 05:30 Hgb 11.5 gm/dL (12-16) L 11/19/17 05:30 Hct 33.7 % (41.0-60) L 11/19/17 05:30 MCV 89.2 fl (80-99) 11/19/17 05:30 MCH 30.5 pg (27.0-31.0) 11/19/17 05:30 MCHC Differential 34.2 pg (28.0-36.0) 11/19/17 05:30 RDW 14.6 % (11.5-20.0) 11/19/17 05:30 Plt Count 104 Th/cmm (150-400) L 11/19/17 05:30 MPV 9.8 fl 11/19/17 05:30 Neutrophils % 94.7 % (40.0-80.0) H 11/17/17 07:45 Band Neutrophils % 6 % (0-10) 11/19/17 05:30 Lymphocytes % 3.7 % (20.0-50.0) L 11/17/17 07:45 Monocytes % 1.6 % (2.0-10.0) L 11/17/17 07:45 Eosinophils % 0.0 % (0.0-5.0) 11/17/17 07:45 Basophils % 0.0 % (0.0-2.0) 11/15/17 09:01 Neutrophils (Manual) 87 % (40-80) H 11/19/17 05:30 Lymphocytes 6 % (20-50) L 11/19/17 05:30 Monocytes 1 % (2-10) L 11/19/17 05:30 Platelet Estimate SLIGHT DECREASED (NORMAL) 11/19/17 05:30 Specimen Source Arterial 11/18/17 10:29 Sample Site Right Radial 11/18/17 10:29 pH 7.48 (7.35-7.45) H 11/18/17 10:29 pCO2 29.0 mmHg (35.0-45.0) L 11/18/17 10:29 pO2 81.0 mmHg (80.0-100.0) 11/18/17 10:29 HCO3 24.1 mEq/L (20.0-26.0) 11/18/17 10:29 Base Excess -1.0 mEq/L (-3.0-3.0) 11/18/17 10:29 O2 Saturation 97.0 % (92.0-100.0) 11/18/17 10:29 Mario Test PASS 11/18/17 10:29 Vent Rate NA 11/15/17 08:47 Inspired O2 28 11/18/17 10:29 Tidal Volume NA 11/15/17 08:47 PEEP NA 11/15/17 08:47 Pressure (ins/psv/peep) NA 11/15/17 08:47 Critical Value PW 11/18/17 10:29 Sodium 137 mEq/L (136-145) 11/19/17 05:30 Potassium 3.5 mEq/L (3.5-5.1) 11/19/17 05:30 Chloride 106 mEq/L (98-107) 11/19/17 05:30 Carbon Dioxide 20.4 mEq/L (21.0-31.0) L 11/19/17 05:30 Anion Gap 14.1 (7.0-16.0) 11/19/17 05:30 BUN 100 mg/dL (7-25) H* 11/19/17 05:30 Creatinine 2.0 mg/dL (0.7-1.3) H 11/19/17 05:30 Est GFR ( Amer) TNP 11/19/17 05:30 Est GFR (Non-Af Amer) TNP 11/19/17 05:30 BUN/Creatinine Ratio 50.0 11/19/17 05:30 Glucose 508 mg/dL (70-105) H* 11/19/17 12:30 POC Glucose 368 MG/DL (70 - 105) H 11/19/17 05:41 Hemoglobin A1c % 8.3 % (4.0-6.0) H 11/15/17 09:20 Whole Bld Lactic Acid 6.37 mmol/L (0.60-1.99) H* 11/15/17 11:20 Calcium 8.9 mg/dL (8.6-10.3) 11/19/17 05:30 Magnesium 2.3 mg/dL (1.9-2.7) 11/15/17 09:20 Total Bilirubin 0.4 mg/dL (0.3-1.0) 11/19/17 05:30 AST 62 U/L (13-39) H 11/19/17 05:30 ALT 99 U/L (7-52) H 11/19/17 05:30 Alkaline Phosphatase 106 U/L (34-104) H 11/19/17 05:30 Troponin I 0.19 ng/mL (0.01-0.05) H* 11/15/17 09:01 B-Natriuretic Peptide 728.0 pg/mL (5.0-100.0) H 11/15/17 09:20 Total Protein 5.6 gm/dL (6.0-8.3) L 11/19/17 05:30 Albumin 2.2 gm/dL (4.2-5.5) L 11/19/17 05:30 Globulin 3.4 gm/dL 11/19/17 05:30 Albumin/Globulin Ratio 0.7 (1.0-1.8) L 11/19/17 05:30 Triglycerides 201 mg/dL (<150) H 11/15/17 09:20 Cholesterol 75 mg/dL (<200) 11/15/17 09:20 LDL Cholesterol Direct 8 mg/dL (75-193) L 11/15/17 09:20 HDL Cholesterol 9 mg/dL (23-92) L 11/15/17 09:20 TSH 0.75 uIU/ml (0.34-5.60) 11/15/17 09:20 Hepatitis A IgM Ab NEGATIVE 11/17/17 17:40 Hep Bs Antigen NEGATIVE 11/17/17 17:40 Hep B Core IgM Ab NEGATIVE 11/17/17 17:40 Hepatitis C Antibody <0.1 11/17/17 17:40 - Physical Exam Vitals and I&O: Vital Signs Temp 97.6 F 11/20/17 20:00 Pulse 77 11/20/17 21:12 Resp 18 11/20/17 20:00 BP 147/76 11/20/17 21:12 Pulse Ox 100 11/20/17 20:00 Intake & Output 11/20/17 11/20/17 11/21/17 06:59 18:59 06:59 Intake Total 450 1780 Output Total 450 850 Balance 0 930 Weight (lbs) 73.284 kg 73.284 kg Intake: Intake, IV Amount 300 1300 D5-0.45NS 1,000 ml @ 75 1000 mls/hr IV .[id number] [facility] Rx #:[id number] Linezolid 600mg/300mL 600 300 300 mg In 300 ml @ 200 mls/ hr IV Q12HR@0900,2100 [facility] Rx#:[id number] Tube Feeding 480 Other 150 Output: Urine 450 850 Other: # Bowel Movements 0 Active Medications: Current Medications Acetaminophen (Tylenol 650mg Supp) 650 mg RC Q4H PRN PRN Reason: Fever > 101 Stop: 01/14/18 12:49 Albuterol/Ipratropium (Duoneb Neb) 3 ml HHN Q4HRT [facility] Stop: 01/15/18 18:59 Last Admin: 11/20/17 19:30 Dose: 3 ml Amlodipine Besylate (Norvasc) 5 mg PO HS [facility] Stop: 01/14/18 20:59 Last Admin: 11/20/17 21:12 Dose: 5 mg Aspirin (Aspirin Chewable) 81 mg PO DAILY [facility] Stop: 01/15/18 08:59 Last Admin: 11/20/17 08:45 Dose: 81 mg Atorvastatin Calcium (Lipitor) 20 mg PO HS [facility] Stop: 01/14/18 22:59 Last Admin: 11/20/17 21:13 Dose: 20 mg Carvedilol (Coreg) 3.125 mg PO BID [facility] Stop: 01/14/18 16:59 Last Admin: 11/20/17 17:09 Dose: 3.125 mg Fluconazole (Diflucan) 100 mg PO DAILY [facility] Stop: 01/17/18 08:59 Last Admin: 11/20/17 08:44 Dose: 100 mg Glucagon (Glucagen) 1 mg IM PRN PRN PRN Reason: hypoglycemia Stop: 01/14/18 16:44 Diltiazem HCl 125 mg/ Dextrose 125 mls @ 10 mls/hr IV TITR RYAN; 10 MG/HR PRN Reason: Protocol Stop: 01/14/18 11:44 Last Titration: 11/16/17 03:00 Dose: 0 mg/hr, 0 mls/hr Cefepime HCl 1 gm/ Sodium (Chloride) 50 mls @ 100 mls/hr IV Q24HR [facility] Stop: 01/14/18 17:59 Last Admin: 11/20/17 17:10 Dose: 100 mls/hr Levofloxacin 250 mg/ (Miscellaneous) 50 mls @ 50 mls/hr IV Q24H [facility] Stop: 01/15/18 09:59 Last Admin: 11/20/17 10:26 Dose: 50 mls/hr Linezolid (Zyvox) 600 mg in 300 mls @ 200 mls/hr IV Q12HR@0900,2100 [facility] Stop: 01/16/18 11:59 Last Admin: 11/20/17 21:14 Dose: 200 mls/hr Dextrose/Sodium Chloride (D5-0.45ns) 1,000 mls @ 75 mls/hr IV .[id number] [facility] Stop: 01/17/18 20:21 Last Admin: 11/20/17 15:16 Dose: 75 mls/hr Insulin Aspart (Novolog Insulin Sliding Scale) 0 units SUBQ ACHS RYAN PRN Reason: Protocol Stop: 01/15/18 07:29 Last Admin: 11/20/17 21:13 Dose: 11 units Insulin Detemir (Levemir Insulin) 10 units SUBQ BID RYAN PRN Reason: Protocol Stop: 01/18/18 13:36 Last Admin: 11/20/17 17:14 Dose: 10 units Methylprednisolone Sodium Succinate (Solu-Medrol) 60 mg IVP Q6HR [facility] Stop: 01/14/18 17:59 Last Admin: 11/20/17 17:12 Dose: 60 mg Mirtazapine (Remeron) 30 mg PO HS [facility] Stop: 01/14/18 22:59 Last Admin: 11/20/17 21:12 Dose: 30 mg Miscellaneous (Apixaban [Eliquis]) 2.5 mg PO BID [facility] Stop: 01/14/18 16:59 Last Admin: 11/16/17 17:11 Dose: Not Given Miscellaneous (Probiotic Screen) 1 ea MC PRN PRN PRN Reason: PROTOCOL Stop: 01/19/18 16:29 Neomycin/Polymyxin/Bacitracin (Triple Antibiotic Ointment) 1 appl TP DAILY [facility] Stop: 01/15/18 08:59 Last Admin: 11/20/17 08:45 Dose: 1 appl Olanzapine (Zyprexa) 10 mg PO TID RYAN PRN Reason: Protocol Stop: 01/14/18 20:59 Last Admin: 11/20/17 21:12 Dose: 10 mg Pantoprazole Sodium (Protonix) 40 mg PO DAILY [facility] Stop: 01/15/18 08:59 Last Admin: 11/20/17 08:45 Dose: 40 mg General: weak, demented HEENT: PERRLA, EOMI, anicteric sclerae, throat clear Neck: Supple, No JVD, No thyromegaly, No LAD Lungs: congested, ronchi Cardiovascular: Normal S2, other (IRRIGULAR) Extremities: clear Neurological: no change - Procedures Procedures: Procedures Procedure Code Date INSERT TUNNELED CV CATH [id number] 11/15/17 INSERTION OF INFUSION DEV INTO R SUBCLAV VEIN, PERC APPROACH 64E447H 11/15/17 Internal Medicine Assmt/Plan - Assessment Assessment: 1.PNEUMONIA. 2.COPD. 3.AFIB. 4.DEMENTIA. 5.PENNY. 6.DEHYDRATION. 7.DM - Plan Plan: CONTINUE ON CURRENT MEDICATION AND DIET.CHANGE IV TO HALF NS AT 70CC PER HOUR. Nutritional Asmnt/Malnutr-PDOC - Dietary Evaluation Malnutrition Findings (Please click <Entered> for more info): Nutritional Asmnt/Malnutrition Start: 11/16/17 14: 06 Text: Status: Complete Freq: Document 11/16/17 14:06 LCCOSMOG (Rec: 11/16/17 14:20 [email or web address]) Nutritional Asmnt/Malnutrition Patient General Information Nutritional Screening High Risk Consult Diagnosis actute renal failure, sepsis, PNA Pertinent Medical Hx/Surgical Hx hyperlipidemia, CHF, HTN, COPD , ICD device Subjective Information Consult received for admit blood sugar 263. Pt seen sleeping in bed at the time of visit. Spoke with RN, pt refused breakfast this morning possible d/t weakness and being sick. Current Diet Order/ Nutrition Support low chlesterol 300gm Pertinent Medications glucagen, novolog, remeron, nacl 0.9% Pertinent Labs 11/15 Na 137, K 4.6, Cl 110, BUN 105, Cr 2.9, GLucose 295, POC 246-370 since admit, a1c 8.3, calcium 9.2 Nutritional Hx/Data Height 1.85 m Height (Calculated Centimeters) 185.4 Current Weight (lbs) 62.55 kg Weight (Calculated Kilograms) 62.6 Weight (Calculated Grams) 49841.4 [place] Body Weight 184 % [place] Body Weight 75 Body Mass Index (BMI) 18.1 Weight Status Underweight GI Symptoms GI Symptoms None Last BM no record Skin Integrity/Comment: pressure area to heels Current %PO Negligible < 25% Estimated Nutritional Goals Calories/Kcals/Kg 25-30 Kcals Calculated 6797-2943 based on IBW considering underweight and sepsis Protein g/k-1.2 Protein Calculated 84-100 Fluid: ml 2089-250ml (1ml/kcal) Nutritional Problem 2. Problem Problem altered nutrition related lab values Etiology acute renal failure, hx of DM Signs/Symptoms: BUN 105, Cr 2.9, GLucose 295, POC 246-370, a1c 8.3, 1. Problem Problem increased nutrition needs ( calorie and protein) Etiology increased metabolic demand for healing and underweight Signs/Symptoms: dx of sepsis and PNA, BMI 18.2 Malnutrition Alert Protein-Calorie Malnutrition N/A Is there a minimum of two criteria No selected? Query Text:Check all the applicable criteria. A minimum of two criteria are recommended for diagnosis of either severe or non-severe malnutrition. Intervention/Recommendation Comments 1. Recommend modify diet to CCHO, low cholesteral diet for optimal glycemic control. RN made aware, will talk to MD 2. Monitor PO intake, wt, labs and skin integrity 3. F/U as high risk in 2-3 days, 11/18-11/19 Expected Outcomes/Goals Expected Outcomes/Goals 1. PO intake to meet at least 75% of nutritional needs. 2. Wt stability, skin to remain intact, labs to improve
[2017-11-20] MEDS: Sodium Chloride 0.45% 1,000 ML IV SCH (22:30)
[2017-11-21] MEDS: Albuterol/Ipratropium Neb 3 ML AERS HHN SCH ×5 (02:14→23:44)
[2017-11-21] MEDS: INSULIN ASPART SLIDING SCALE 100 UNITS/ML UNIT SUBQ SCH ×4 (07:00→21:57)
[2017-11-21] MEDS: methylPREDNISolone SS 40 mg Vial IVP SCH ×4 (07:00→17:14)
[2017-11-21 07:46] LABS: HEMATOCRIT 34.1 % (41.0-60); HEMOGLOBIN 11.6 gm/dL (12-16); LYMPHOCYTE ABSOLUTE 0.5 Th/cmm (1.5-3.0); MEAN CELL VOLUME 89.2 fl (80-99); MEAN CORPUSCULAR HEMOGLOBIN 30.2 pg (27.0-31.0); MEAN CORPUSCULAR HGB CONC 33.9 pg (28.0-36.0); MEAN PLATELET VOLUME 9.8 fl; MONOCYTE ABSOLUTE 0.1 Th/cmm (0.3-1.0); NEUTROPHILE ABSOLUTE 16.1 Th/cmm (1.8-8.0); PLATELET COUNT 98 Th/cmm (150-400); RED BLOOD COUNT 3.82 Mil/cmm (3.80-5.80); RED CELL DISTRIBUTION WIDTH 14.1 % (11.5-20.0)
[2017-11-21 07:53] LABS: ANION GAP 11.7 (7.0-16.0); CALCIUM SERUM 9.3 mg/dL (8.6-10.3); CARBON DIOXIDE 28.8 mEq/L (21.0-31.0); CHLORIDE 100 mEq/L (98-107); CREATININE - SERUM 1.5 mg/dL (0.7-1.3); GLUCOSE 345 mg/dL (70-105); POTASSIUM SERUM 3.5 mEq/L (3.5-5.1); SODIUM SERUM 137 mEq/L (136-145)
[2017-11-21] MEDS: Aspirin 81mg Chewable Tab PO SCH (08:17)
[2017-11-21] MEDS: Pantoprazole 40 mg EC Tab PO SCH (08:17)
[2017-11-21 08:18] LABS: BUN - UREA NITROGEN 81 mg/dL (7-25)
[2017-11-21] MEDS: Insulin Detemir 100 units/mL 10mL Vial SUBQ SCH ×2 (08:18→17:17)
[2017-11-21] MEDS: Triple Antibiotic Ointment 28gm tube TP SCH (08:21)
[2017-11-21] MEDS: Linezolid 600mg/300mL 600 MG/300 ML BAG IV SCH ×2 (08:21→22:00)
[2017-11-21 08:29] LABS: WHITE BLOOD COUNT 16.7 Th/cmm (4.8-10.8)
--- NOTE | 2017-11-21 09:41 | General Progress Note ---
Subjective - Review of Systems Service Date: 11/21/17 Subjective: pt seen and examined. NG tube in place. Making urine. Objective - Results Result Diagrams: 11/21/17 06:55 11/21/17 06:55 Recent Labs: Laboratory Last Values WBC 16.7 Th/cmm (4.8-10.8) H D 11/21/17 06:55 RBC 3.82 Mil/cmm (3.80-5.80) 11/21/17 06:55 Hgb 11.6 gm/dL (12-16) L 11/21/17 06:55 Hct 34.1 % (41.0-60) L 11/21/17 06:55 MCV 89.2 fl (80-99) 11/21/17 06:55 MCH 30.2 pg (27.0-31.0) 11/21/17 06:55 MCHC Differential 33.9 pg (28.0-36.0) 11/21/17 06:55 RDW 14.1 % (11.5-20.0) 11/21/17 06:55 Plt Count 98 Th/cmm (150-400) L 11/21/17 06:55 MPV 9.8 fl 11/21/17 06:55 Neutrophils % 94.7 % (40.0-80.0) H 11/17/17 07:45 Band Neutrophils % 6 % (0-10) 11/19/17 05:30 Lymphocytes % 3.7 % (20.0-50.0) L 11/17/17 07:45 Monocytes % 1.6 % (2.0-10.0) L 11/17/17 07:45 Eosinophils % 0.0 % (0.0-5.0) 11/17/17 07:45 Basophils % 0.0 % (0.0-2.0) 11/15/17 09:01 Neutrophils (Manual) 87 % (40-80) H 11/19/17 05:30 Lymphocytes 6 % (20-50) L 11/19/17 05:30 Monocytes 1 % (2-10) L 11/19/17 05:30 Platelet Estimate SLIGHT DECREASED (NORMAL) 11/19/17 05:30 Specimen Source Arterial 11/18/17 10:29 Sample Site Right Radial 11/18/17 10:29 pH 7.48 (7.35-7.45) H 11/18/17 10:29 pCO2 29.0 mmHg (35.0-45.0) L 11/18/17 10:29 pO2 81.0 mmHg (80.0-100.0) 11/18/17 10:29 HCO3 24.1 mEq/L (20.0-26.0) 11/18/17 10:29 Base Excess -1.0 mEq/L (-3.0-3.0) 11/18/17 10:29 O2 Saturation 97.0 % (92.0-100.0) 11/18/17 10:29 Mario Test PASS 11/18/17 10:29 Vent Rate NA 11/15/17 08:47 Inspired O2 28 11/18/17 10:29 Tidal Volume NA 11/15/17 08:47 PEEP NA 11/15/17 08:47 Pressure (ins/psv/peep) NA 11/15/17 08:47 Critical Value PW 11/18/17 10:29 Sodium 137 mEq/L (136-145) 11/21/17 06:55 Potassium 3.5 mEq/L (3.5-5.1) 11/21/17 06:55 Chloride 100 mEq/L (98-107) 11/21/17 06:55 Carbon Dioxide 28.8 mEq/L (21.0-31.0) 11/21/17 06:55 Anion Gap 11.7 (7.0-16.0) 11/21/17 06:55 BUN 81 mg/dL (7-25) H* 11/21/17 06:55 Creatinine 1.5 mg/dL (0.7-1.3) H 11/21/17 06:55 Est GFR ( Amer) TNP 11/21/17 06:55 Est GFR (Non-Af Amer) TN 11/21/17 06:55 BUN/Creatinine Ratio 54.0 11/21/17 06:55 Glucose 345 mg/dL (70-105) H 11/21/17 06:55 POC Glucose 368 MG/DL (70 - 105) H 11/19/17 05:41 Hemoglobin A1c % 8.3 % (4.0-6.0) H 11/15/17 09:20 Whole Bld Lactic Acid 6.37 mmol/L (0.60-1.99) H* 11/15/17 11:20 Calcium 9.3 mg/dL (8.6-10.3) 11/21/17 06:55 Magnesium 2.3 mg/dL (1.9-2.7) 11/15/17 09:20 Total Bilirubin 0.4 mg/dL (0.3-1.0) 11/19/17 05:30 AST 62 U/L (13-39) H 11/19/17 05:30 ALT 99 U/L (7-52) H 11/19/17 05:30 Alkaline Phosphatase 106 U/L (34-104) H 11/19/17 05:30 Troponin I 0.19 ng/mL (0.01-0.05) H* 11/15/17 09:01 B-Natriuretic Peptide 728.0 pg/mL (5.0-100.0) H 11/15/17 09:20 Total Protein 5.6 gm/dL (6.0-8.3) L 11/19/17 05:30 Albumin 2.2 gm/dL (4.2-5.5) L 11/19/17 05:30 Globulin 3.4 gm/dL 11/19/17 05:30 Albumin/Globulin Ratio 0.7 (1.0-1.8) L 11/19/17 05:30 Triglycerides 201 mg/dL (<150) H 11/15/17 09:20 Cholesterol 75 mg/dL (<200) 11/15/17 09:20 LDL Cholesterol Direct 8 mg/dL (75-193) L 11/15/17 09:20 HDL Cholesterol 9 mg/dL (23-92) L 11/15/17 09:20 TSH 0.75 uIU/ml (0.34-5.60) 11/15/17 09:20 Hepatitis A IgM Ab NEGATIVE 11/17/17 17:40 Hep Bs Antigen NEGATIVE 11/17/17 17:40 Hep B Core IgM Ab NEGATIVE 11/17/17 17:40 Hepatitis C Antibody <0.1 11/17/17 17:40 - Physical Exam Vitals and I&O: Vital Signs Temp 96.2 F 11/21/17 04:00 Pulse 91 11/21/17 08:18 Resp 20 11/21/17 04:00 BP 149/66 11/21/17 08:18 Pulse Ox 98 11/21/17 04:00 Intake & Output 11/20/17 11/21/17 11/21/17 18:59 06:59 18:59 Intake Total 1780 980 Output Total 850 800 Balance 930 180 Weight (lbs) 73.284 kg 82.418 kg Intake: Intake, IV Amount 1300 300 D5-0.45NS 1,000 ml @ 75 1000 mls/hr IV .[id number] [facility] Rx #:[id number] Linezolid 600mg/300mL 600 300 300 mg In 300 ml @ 200 mls/ hr IV Q12HR@0900,2100 [facility] Rx#:[id number] Oral 0 Tube Feeding 480 480 Other 200 Output: Urine 850 800 Other: # Bowel Movements 1 Stool Characteristics Soft Brown Active Medications: Current Medications Acetaminophen (Tylenol 650mg Supp) 650 mg RC Q4H PRN PRN Reason: Fever > 101 Stop: 01/14/18 12:49 Albuterol/Ipratropium (Duoneb Neb) 3 ml HHN Q4HRT [facility] Stop: 01/15/18 18:59 Last Admin: 11/21/17 07:21 Dose: 3 ml Amlodipine Besylate (Norvasc) 5 mg PO HS [facility] Stop: 01/14/18 20:59 Last Admin: 11/20/17 21:12 Dose: 5 mg Aspirin (Aspirin Chewable) 81 mg PO DAILY [facility] Stop: 01/15/18 08:59 Last Admin: 11/21/17 08:17 Dose: 81 mg Atorvastatin Calcium (Lipitor) 20 mg PO HS [facility] Stop: 01/14/18 22:59 Last Admin: 11/20/17 21:13 Dose: 20 mg Carvedilol (Coreg) 3.125 mg PO BID [facility] Stop: 01/14/18 16:59 Last Admin: 11/21/17 08:18 Dose: 3.125 mg Fluconazole (Diflucan) 100 mg PO DAILY [facility] Stop: 01/17/18 08:59 Last Admin: 11/21/17 08:17 Dose: 100 mg Glucagon (Glucagen) 1 mg IM PRN PRN PRN Reason: hypoglycemia Stop: 01/14/18 16:44 Diltiazem HCl 125 mg/ Dextrose 125 mls @ 10 mls/hr IV TITR RYAN; 10 MG/HR PRN Reason: Protocol Stop: 01/14/18 11:44 Last Titration: 11/16/17 03:00 Dose: 0 mg/hr, 0 mls/hr Cefepime HCl 1 gm/ Sodium (Chloride) 50 mls @ 100 mls/hr IV Q24HR [facility] Stop: 01/14/18 17:59 Last Admin: 11/20/17 17:10 Dose: 100 mls/hr Levofloxacin 250 mg/ (Miscellaneous) 50 mls @ 50 mls/hr IV Q24H [facility] Stop: 01/15/18 09:59 Last Admin: 11/20/17 10:26 Dose: 50 mls/hr Linezolid (Zyvox) 600 mg in 300 mls @ 200 mls/hr IV Q12HR@0900,2100 [facility] Stop: 01/16/18 11:59 Last Admin: 11/21/17 08:21 Dose: 200 mls/hr Sodium Chloride (Nacl 0.45%) 1,000 mls @ 75 mls/hr IV .[id number] [facility] Stop: 01/19/18 22:18 Last Admin: 11/20/17 22:30 Dose: 75 mls/hr Insulin Aspart (Novolog Insulin Sliding Scale) 0 units SUBQ ACHS RYAN PRN Reason: Protocol Stop: 01/15/18 07:29 Last Admin: 11/21/17 07:00 Dose: 7 units Insulin Detemir (Levemir Insulin) 10 units SUBQ BID RYAN PRN Reason: Protocol Stop: 01/18/18 13:36 Last Admin: 11/21/17 08:18 Dose: 10 units Methylprednisolone Sodium Succinate (Solu-Medrol) 60 mg IVP Q6HR [facility] Stop: 01/14/18 17:59 Last Admin: 11/21/17 07:00 Dose: 60 mg Mirtazapine (Remeron) 30 mg PO HS [facility] Stop: 01/14/18 22:59 Last Admin: 11/20/17 21:12 Dose: 30 mg Miscellaneous (Apixaban [Eliquis]) 2.5 mg PO BID [facility] Stop: 01/14/18 16:59 Last Admin: 11/16/17 17:11 Dose: Not Given Miscellaneous (Probiotic Screen) 1 ea MC PRN PRN PRN Reason: PROTOCOL Stop: 01/19/18 16:29 Neomycin/Polymyxin/Bacitracin (Triple Antibiotic Ointment) 1 appl TP DAILY [facility] Stop: 01/15/18 08:59 Last Admin: 11/21/17 08:21 Dose: 1 appl Olanzapine (Zyprexa) 10 mg PO TID [facility] PRN Reason: Protocol Stop: 01/14/18 20:59 Last Admin: 11/21/17 08:17 Dose: 10 mg Pantoprazole Sodium (Protonix) 40 mg PO DAILY [facility] Stop: 01/15/18 08:59 Last Admin: 11/21/17 08:17 Dose: 40 mg General: Other (lethargic) HEENT: PERRLA Neck: Supple Cardiovascular: Regular rate, Normal S1, Normal S2, Other (multiple PVC) Lungs: Other (rhonchi) Abdomen: Bowel sounds, Soft, Distended Extremities: Edema Psych/Mental Status: Other (lethargic) - Procedures Procedures: Procedures Procedure Code Date INSERT TUNNELED CV CATH [id number] 11/15/17 INSERTION OF INFUSION DEV INTO R SUBCLAV VEIN, PERC APPROACH 40Y282K 11/15/17 Assessment/Plan - Problem List Patient Problems: All Active Problems SEVERE RESPIRATORY DISTRESS (Acute) - Assessment Assessment: 1.PNEUMONIA. 2.COPD. 3.AFIB. 4.DEMENTIA. 5.PENNY. - Plan Plan: recheck labs in am HOLD HD plan for transfer to LT[facility] Nutritional Asmnt/Malnutr-PDOC - Dietary Evaluation Malnutrition Findings (Please click <Entered> for more info): Nutritional Asmnt/Malnutrition Start: 11/16/17 14: 06 Text: Status: Complete Freq: Document 11/16/17 14:06 LISA (Rec: 11/16/17 14:20 [email or web address]) Nutritional Asmnt/Malnutrition Patient General Information Nutritional Screening High Risk Consult Diagnosis actute renal failure, sepsis, PNA Pertinent Medical Hx/Surgical Hx hyperlipidemia, CHF, HTN, COPD , ICD device Subjective Information Consult received for admit blood sugar 263. Pt seen sleeping in bed at the time of visit. Spoke with RN, pt refused breakfast this morning possible d/t weakness and being sick. Current Diet Order/ Nutrition Support low chlesterol 300gm Pertinent Medications glucagen, novolog, remeron, nacl 0.9% Pertinent Labs 11/15 Na 137, K 4.6, Cl 110, BUN 105, Cr 2.9, GLucose 295, POC 246-370 since admit, a1c 8.3, calcium 9.2 Nutritional Hx/Data Height 1.85 m Height (Calculated Centimeters) 185.4 Current Weight (lbs) 62.55 kg Weight (Calculated Kilograms) 62.6 Weight (Calculated Grams) 40079.4 [place] Body Weight 184 % [place] Body Weight 75 Body Mass Index (BMI) 18.1 Weight Status Underweight GI Symptoms GI Symptoms None Last BM no record Skin Integrity/Comment: pressure area to heels Current %PO Negligible < 25% Estimated Nutritional Goals Calories/Kcals/Kg 25-30 Kcals Calculated 7788-4621 based on IBW considering underweight and sepsis Protein g/k-1.2 Protein Calculated 84-100 Fluid: ml 2089-250ml (1ml/kcal) Nutritional Problem 2. Problem Problem altered nutrition related lab values Etiology acute renal failure, hx of DM Signs/Symptoms: BUN 105, Cr 2.9, GLucose 295, POC 246-370, a1c 8.3, 1. Problem Problem increased nutrition needs ( calorie and protein) Etiology increased metabolic demand for healing and underweight Signs/Symptoms: dx of sepsis and PNA, BMI 18.2 Malnutrition Alert Protein-Calorie Malnutrition N/A Is there a minimum of two criteria No selected? Query Text:Check all the applicable criteria. A minimum of two criteria are recommended for diagnosis of either severe or non-severe malnutrition. Intervention/Recommendation Comments 1. Recommend modify diet to CCHO, low cholesteral diet for optimal glycemic control. RN made aware, will talk to MD 2. Monitor PO intake, wt, labs and skin integrity 3. F/U as high risk in 2-3 days, 11/18-11/19 Expected Outcomes/Goals Expected Outcomes/Goals 1. PO intake to meet at least 75% of nutritional needs. 2. Wt stability, skin to remain intact, labs to improve
--- NOTE | 2017-11-21 09:50 | Diagnostic Imaging Report ---
Portable chest x-ray HISTORY: Shortness of breath Compared with the prior exam of November 19, 2017, resolution previously noted infiltrate within the right lower lobe. No definite focal pulmonary processes are seen. The heart remains enlarged. IMPRESSION: 1. Resolution in right lower lobe infiltrate.
[2017-11-21] MEDS: Levofloxacin 250mg/50mL 250 MG in Premix Fluid 1 BAG IV SCH (10:27)
[2017-11-21] MEDS: Sodium Chloride 0.45% 1,000 ML IV SCH (15:37)
[2017-11-21] MEDS: Cefepime 1 GM in Sodium Chloride 0.9% 50 ML IV SCH (17:26)
--- NOTE | 2017-11-21 18:51 | Internal Medicine Prog Note ---
Internal Medicine Subjective - Subjective Service Date: 11/21/17 Patient seen and examined:: with staff (HE FEELS BETTER) Patient is:: awake, non-verbal, in bed, confused, congested Per staff patient has:: no adverse event (HE HAS POOR APETITE) Internal Medicine Objective - Results Result Diagrams: 11/21/17 06:55 11/21/17 06:55 Recent Labs: Laboratory Last Values WBC 16.7 Th/cmm (4.8-10.8) H D 11/21/17 06:55 RBC 3.82 Mil/cmm (3.80-5.80) 11/21/17 06:55 Hgb 11.6 gm/dL (12-16) L 11/21/17 06:55 Hct 34.1 % (41.0-60) L 11/21/17 06:55 MCV 89.2 fl (80-99) 11/21/17 06:55 MCH 30.2 pg (27.0-31.0) 11/21/17 06:55 MCHC Differential 33.9 pg (28.0-36.0) 11/21/17 06:55 RDW 14.1 % (11.5-20.0) 11/21/17 06:55 Plt Count 98 Th/cmm (150-400) L 11/21/17 06:55 MPV 9.8 fl 11/21/17 06:55 Neutrophils % 94.7 % (40.0-80.0) H 11/17/17 07:45 Band Neutrophils % 6 % (0-10) 11/19/17 05:30 Lymphocytes % 3.7 % (20.0-50.0) L 11/17/17 07:45 Monocytes % 1.6 % (2.0-10.0) L 11/17/17 07:45 Eosinophils % 0.0 % (0.0-5.0) 11/17/17 07:45 Basophils % 0.0 % (0.0-2.0) 11/15/17 09:01 Neutrophils (Manual) 87 % (40-80) H 11/19/17 05:30 Lymphocytes 6 % (20-50) L 11/19/17 05:30 Monocytes 1 % (2-10) L 11/19/17 05:30 Platelet Estimate SLIGHT DECREASED (NORMAL) 11/19/17 05:30 Specimen Source Arterial 11/18/17 10:29 Sample Site Right Radial 11/18/17 10:29 pH 7.48 (7.35-7.45) H 11/18/17 10:29 pCO2 29.0 mmHg (35.0-45.0) L 11/18/17 10:29 pO2 81.0 mmHg (80.0-100.0) 11/18/17 10:29 HCO3 24.1 mEq/L (20.0-26.0) 11/18/17 10:29 Base Excess -1.0 mEq/L (-3.0-3.0) 11/18/17 10:29 O2 Saturation 97.0 % (92.0-100.0) 11/18/17 10:29 Mario Test PASS 11/18/17 10:29 Vent Rate NA 11/15/17 08:47 Inspired O2 28 11/18/17 10:29 Tidal Volume NA 11/15/17 08:47 PEEP NA 11/15/17 08:47 Pressure (ins/psv/peep) NA 11/15/17 08:47 Critical Value PW 11/18/17 10:29 Sodium 137 mEq/L (136-145) 11/21/17 06:55 Potassium 3.5 mEq/L (3.5-5.1) 11/21/17 06:55 Chloride 100 mEq/L (98-107) 11/21/17 06:55 Carbon Dioxide 28.8 mEq/L (21.0-31.0) 11/21/17 06:55 Anion Gap 11.7 (7.0-16.0) 11/21/17 06:55 BUN 81 mg/dL (7-25) H* 11/21/17 06:55 Creatinine 1.5 mg/dL (0.7-1.3) H 11/21/17 06:55 Est GFR ( Amer) TNP 11/21/17 06:55 Est GFR (Non-Af Amer) TNP 11/21/17 06:55 BUN/Creatinine Ratio 54.0 11/21/17 06:55 Glucose 345 mg/dL (70-105) H 11/21/17 06:55 POC Glucose 255 MG/DL (70 - 105) H 11/21/17 16:44 Hemoglobin A1c % 8.3 % (4.0-6.0) H 11/15/17 09:20 Whole Bld Lactic Acid 6.37 mmol/L (0.60-1.99) H* 11/15/17 11:20 Calcium 9.3 mg/dL (8.6-10.3) 11/21/17 06:55 Magnesium 2.3 mg/dL (1.9-2.7) 11/15/17 09:20 Total Bilirubin 0.4 mg/dL (0.3-1.0) 11/19/17 05:30 AST 62 U/L (13-39) H 11/19/17 05:30 ALT 99 U/L (7-52) H 11/19/17 05:30 Alkaline Phosphatase 106 U/L (34-104) H 11/19/17 05:30 Troponin I 0.19 ng/mL (0.01-0.05) H* 11/15/17 09:01 B-Natriuretic Peptide 728.0 pg/mL (5.0-100.0) H 11/15/17 09:20 Total Protein 5.6 gm/dL (6.0-8.3) L 11/19/17 05:30 Albumin 2.2 gm/dL (4.2-5.5) L 11/19/17 05:30 Globulin 3.4 gm/dL 11/19/17 05:30 Albumin/Globulin Ratio 0.7 (1.0-1.8) L 11/19/17 05:30 Triglycerides 201 mg/dL (<150) H 11/15/17 09:20 Cholesterol 75 mg/dL (<200) 11/15/17 09:20 LDL Cholesterol Direct 8 mg/dL (75-193) L 11/15/17 09:20 HDL Cholesterol 9 mg/dL (23-92) L 11/15/17 09:20 TSH 0.75 uIU/ml (0.34-5.60) 11/15/17 09:20 Hepatitis A IgM Ab NEGATIVE 11/17/17 17:40 Hep Bs Antigen NEGATIVE 11/17/17 17:40 Hep B Core IgM Ab NEGATIVE 11/17/17 17:40 Hepatitis C Antibody <0.1 11/17/17 17:40 - Physical Exam Vitals and I&O: Vital Signs Temp 97.6 F 11/21/17 15:00 Pulse 88 11/21/17 16:41 Resp 18 11/21/17 16:00 BP 146/69 11/21/17 16:41 Pulse Ox 99 11/21/17 15:19 Intake & Output 11/20/17 11/21/17 11/21/17 18:59 06:59 18:59 Intake Total 3901 575 2337 Output Total 850 800 850 Balance 675 143 9940 Weight (lbs) 73.284 kg 82.418 kg 82.418 kg Intake: Intake, IV Amount 7261 415 9954 Cefepime 1 gm In Sodium 50 Chloride 0.9% 50 ml @ 100 mls/hr IV Q24HR [facility] Rx#: [id number] D5-0.45NS 1,000 ml @ 75 1000 mls/hr IV .[id number] [facility] Rx #:[id number] Levofloxacin 250mg/50mL 50 250 mg In Premix Fluid 1 bag @ 50 mls/hr IV Q24H [facility] Rx#:[id number] Linezolid 600mg/300mL 600 300 300 300 mg In 300 ml @ 200 mls/ hr IV Q12HR@0900,2100 [facility] Rx#:[id number] Sodium Chloride 0.45% 1, 1000 000 ml @ 75 mls/hr IV . [id number] [facility] Rx#:[id number] Oral 0 Tube Feeding 480 480 580 Other 200 Output: Urine 850 800 850 Other: # Bowel Movements 1 Stool Characteristics Soft Soft Brown Brown Active Medications: Current Medications Acetaminophen (Tylenol 650mg Supp) 650 mg RC Q4H PRN PRN Reason: Fever > 101 Stop: 01/14/18 12:49 Albuterol/Ipratropium (Duoneb Neb) 3 ml HHN Q4HRT [facility] Stop: 01/15/18 18:59 Last Admin: 11/21/17 15:16 Dose: 3 ml Amlodipine Besylate (Norvasc) 5 mg PO HS [facility] Stop: 01/14/18 20:59 Last Admin: 11/20/17 21:12 Dose: 5 mg Aspirin (Aspirin Chewable) 81 mg PO DAILY [facility] Stop: 01/15/18 08:59 Last Admin: 11/21/17 08:17 Dose: 81 mg Atorvastatin Calcium (Lipitor) 20 mg PO HS [facility] Stop: 01/14/18 22:59 Last Admin: 11/20/17 21:13 Dose: 20 mg Carvedilol (Coreg) 3.125 mg PO BID [facility] Stop: 01/14/18 16:59 Last Admin: 11/21/17 16:41 Dose: 3.125 mg Fluconazole (Diflucan) 100 mg PO DAILY [facility] Stop: 01/17/18 08:59 Last Admin: 11/21/17 08:17 Dose: 100 mg Glucagon (Glucagen) 1 mg IM PRN PRN PRN Reason: hypoglycemia Stop: 01/14/18 16:44 Diltiazem HCl 125 mg/ Dextrose 125 mls @ 10 mls/hr IV TITR [facility]; 10 MG/HR PRN Reason: Protocol Stop: 01/14/18 11:44 Last Titration: 11/16/17 03:00 Dose: 0 mg/hr, 0 mls/hr Cefepime HCl 1 gm/ Sodium (Chloride) 50 mls @ 100 mls/hr IV Q24HR [facility] Stop: 01/14/18 17:59 Last Admin: 11/21/17 17:26 Dose: 100 mls/hr Levofloxacin 250 mg/ (Miscellaneous) 50 mls @ 50 mls/hr IV Q24H [facility] Stop: 01/15/18 09:59 Last Infusion: 11/21/17 17:33 Dose: Infused Linezolid (Zyvox) 600 mg in 300 mls @ 200 mls/hr IV Q12HR@0900,2100 [facility] Stop: 01/16/18 11:59 Last Infusion: 11/21/17 17:33 Dose: Infused Sodium Chloride (Nacl 0.45%) 1,000 mls @ 75 mls/hr IV .[id number] [facility] Stop: 01/19/18 22:18 Last Admin: 11/21/17 15:37 Dose: 75 mls/hr Insulin Aspart (Novolog Insulin Sliding Scale) 0 units SUBQ ACHS [facility] PRN Reason: Protocol Stop: 01/15/18 07:29 Last Admin: 11/21/17 17:14 Dose: 7 units Insulin Detemir (Levemir Insulin) 14 units SUBQ BID [facility] PRN Reason: Protocol Stop: 01/20/18 16:59 Last Admin: 11/21/17 17:17 Dose: 14 units Methylprednisolone Sodium Succinate (Solu-Medrol) 60 mg IVP Q6HR [facility] Stop: 01/14/18 17:59 Last Admin: 11/21/17 17:14 Dose: 60 mg Mirtazapine (Remeron) 30 mg PO HS [facility] Stop: 01/14/18 22:59 Last Admin: 11/20/17 21:12 Dose: 30 mg Miscellaneous (Apixaban [Eliquis]) 2.5 mg PO BID [facility] Stop: 01/14/18 16:59 Last Admin: 11/16/17 17:11 Dose: Not Given Miscellaneous (Probiotic Screen) 1 ea MC PRN PRN PRN Reason: PROTOCOL Stop: 01/19/18 16:29 Neomycin/Polymyxin/Bacitracin (Triple Antibiotic Ointment) 1 appl TP DAILY [facility] Stop: 01/15/18 08:59 Last Admin: 11/21/17 08:21 Dose: 1 appl Olanzapine (Zyprexa) 10 mg PO TID [facility] PRN Reason: Protocol Stop: 01/14/18 20:59 Last Admin: 11/21/17 14:01 Dose: 10 mg Pantoprazole Sodium (Protonix) 40 mg PO DAILY [facility] Stop: 01/15/18 08:59 Last Admin: 11/21/17 08:17 Dose: 40 mg General: weak, demented HEENT: PERRLA, EOMI, anicteric sclerae, throat clear Neck: Supple, No JVD, No thyromegaly, No LAD Lungs: congested, ronchi Cardiovascular: Normal S2, other (IRRIGULAR) Extremities: clear Neurological: no change - Procedures Procedures: Procedures Procedure Code Date INSERT TUNNELED CV CATH [id number] 11/15/17 INSERTION OF INFUSION DEV INTO R SUBCLAV VEIN, PERC APPROACH [id number] 11/15/17 Internal Medicine Assmt/Plan - Assessment Assessment: 1.PNEUMONIA. 2.COPD. 3.PAFIB 4.DEMENTIA. 5.PENNY. 6.DEHYDRATION. 7.DM - Plan Plan: CONTINUE ON CURRENT MEDICATION AND DIET. Nutritional Asmnt/Malnutr-PDOC - Dietary Evaluation Malnutrition Findings (Please click <Entered> for more info): Nutritional Asmnt/Malnutrition Start: 11/16/17 14: 06 Text: Status: Complete Freq: Document 11/16/17 14:06 [email or web address] (Rec: 11/16/17 14:20 LCHENG [email or web address]) Nutritional Asmnt/Malnutrition Patient General Information Nutritional Screening High Risk Consult Diagnosis actute renal failure, sepsis, PNA Pertinent Medical Hx/Surgical Hx hyperlipidemia, CHF, HTN, COPD , ICD device Subjective Information Consult received for admit blood sugar 263. Pt seen sleeping in bed at the time of visit. Spoke with RN, pt refused breakfast this morning possible d/t weakness and being sick. Current Diet Order/ Nutrition Support low chlesterol 300gm Pertinent Medications glucagen, novolog, remeron, nacl 0.9% Pertinent Labs 11/15 Na 137, K 4.6, Cl 110, BUN 105, Cr 2.9, GLucose 295, POC 246-370 since admit, a1c 8.3, calcium 9.2 Nutritional Hx/Data Height 1.85 m Height (Calculated Centimeters) 185.4 Current Weight (lbs) 62.55 kg Weight (Calculated Kilograms) 62.6 Weight (Calculated Grams) 05466.4 [place] Body Weight 184 % [place] Body Weight 75 Body Mass Index (BMI) 18.1 Weight Status Underweight GI Symptoms GI Symptoms None Last BM no record Skin Integrity/Comment: pressure area to heels Current %PO Negligible < 25% Estimated Nutritional Goals Calories/Kcals/Kg 25-30 Kcals Calculated 3629-2519 based on IBW considering underweight and sepsis Protein g/k-1.2 Protein Calculated 84-100 Fluid: ml 2089-250ml (1ml/kcal) Nutritional Problem 2. Problem Problem altered nutrition related lab values Etiology acute renal failure, hx of DM Signs/Symptoms: BUN 105, Cr 2.9, GLucose 295, POC 246-370, a1c 8.3, 1. Problem Problem increased nutrition needs ( calorie and protein) Etiology increased metabolic demand for healing and underweight Signs/Symptoms: dx of sepsis and PNA, BMI 18.2 Malnutrition Alert Protein-Calorie Malnutrition N/A Is there a minimum of two criteria No selected? Query Text:Check all the applicable criteria. A minimum of two criteria are recommended for diagnosis of either severe or non-severe malnutrition. Intervention/Recommendation Comments 1. Recommend modify diet to CCHO, low cholesteral diet for optimal glycemic control. RN made aware, will talk to MD 2. Monitor PO intake, wt, labs and skin integrity 3. F/U as high risk in 2-3 days, 11/18-11/19 Expected Outcomes/Goals Expected Outcomes/Goals 1. PO intake to meet at least 75% of nutritional needs. 2. Wt stability, skin to remain intact, labs to improve
[2017-11-21] MEDS: Atorvastatin Calcium 10 MG TAB PO SCH (21:56)
--- NOTE | 2017-11-21 22:54 | Consultation ---
DATE OF CONSULTATION: 11/21/2017 HISTORY OF PRESENT ILLNESS: This 77-year-old male was seen and examined at the courtesy of Dr. Frost. The patient was then admitted through Emergency Room and brought to the Emergency Room with history of respiratory distress, cough, and was found to be in respiratory failure. He was sent here actually from the half-way. The patient was evaluated in the Emergency Room and then admitted. The patient does have history of multiple other problems. He has history of atrial fibrillation, coronary artery disease, congestive heart failure with systolic and diastolic dysfunction, questionable history of AICD. The patient was found to be in acute respiratory failure. He was also found to have acute renal failure with acute kidney injury. The patient was dehydrated. The patient also had pneumonia, history of chronic COPD, hypertension, history of diabetes type 2, and dementia. All this information was obtained from the chart. There is no history available from the patient. PAST MEDICAL HISTORY, SOCIAL HISTORY, FAMILY HISTORY, REVIEW OF SYSTEMS: Not available from the patient. PHYSICAL EXAMINATION: VITAL SIGNS: Heart rate was 88, blood pressure was 149/83, respirations 22, temperature 98.2, O2 saturation 95%. SKIN: Normal. HEAD: Normocephalic. EYES: Conjunctivae were pink. There is no icterus in the eyes. Pupils equally reactive to light. NECK: There was no increased jugular venous distention, no thyromegaly, no lymphadenopathy. Carotids equal on both sides. CHEST: Bilaterally symmetrical. Moves well with respirations. Respiratory movements equal on both sides. Trachea is central. Resonant to percussion. Breath sounds, rales, few rhonchi. CARDIOVASCULAR SYSTEM: PMI not well localized and no pulsation or thrill. No parasternal heave. S1 normal, S2 physiologic. Probably, S3 was present. There were no rub. ABDOMEN: Soft, no tenderness, no rigidity, no guarding, no organomegaly. Bowel sounds normal. EXTREMITIES: There was no edema. No calf tenderness. LABORATORY DATA: EKG has shown atrial fibrillation with fast ventricular response. Chest x-ray showed bibasilar infiltrates, AICD present, NG tube present, shows cardiomegaly with arteriosclerotic vascular changes. EKG on admission had shown atrial fibrillation, but apparently during the hospital course of stay here with ICA rhythm strip the patient converted to sinus rhythm. Sodium 137, potassium 3.5, chloride 100, CO2 of 28.8, glucose 345, BUN 81, creatinine 1.5, calcium 9.3. WBC count was 16.7 on 11/21/2017. Hemoglobin 11.6, hematocrit 34.1, platelet count was 198, magnesium 2.3, lactic 6.37. IMPRESSION: Acute respiratory failure, pneumonia, chronic obstructive pulmonary disease, atrial fibrillation with ventricular response, history of coronary artery disease; congestive heart failure systolic and diastolic, status post AICD; cardiomyopathy, acute kidney injury with acute renal failure, dehydration, history of hypertension, diabetes type 2, and dementia. PLAN: Plan is to continue present management. We will get echocardiogram to evaluate left ventricular function and valvular structure, lipid profile, and thyroid profile. To continue nitrates. When renal function improves, ARB may be added. In the meantime, to be on to the beta nile like Coreg, should be on statins, and anticoagulation with Eliquis. Further recommendation will be made depending on the rest of the tests available. JOB# [id number]
[2017-11-22] MEDS: Albuterol/Ipratropium Neb 3 ML AERS HHN SCH ×6 (03:58→22:51)
[2017-11-22] MEDS: methylPREDNISolone SS 40 mg Vial IVP SCH ×3 (05:27→12:16)
[2017-11-22 06:20] LABS: EOSINOPHILE ABSOLUTE 0.1 Th/cmm (0.1-0.4); HEMATOCRIT 33.2 % (41.0-60); HEMOGLOBIN 11.6 gm/dL (12-16); LYMPHOCYTE ABSOLUTE 0.5 Th/cmm (1.5-3.0); MEAN CELL VOLUME 88.5 fl (80-99); MEAN CORPUSCULAR HEMOGLOBIN 30.9 pg (27.0-31.0); MEAN CORPUSCULAR HGB CONC 34.9 pg (28.0-36.0); MONOCYTE ABSOLUTE 0.1 Th/cmm (0.3-1.0); NEUTROPHILE ABSOLUTE 16.7 Th/cmm (1.8-8.0); PLATELET COUNT 107 Th/cmm (150-400); RED BLOOD COUNT 3.76 Mil/cmm (3.80-5.80); RED CELL DISTRIBUTION WIDTH 14.2 % (11.5-20.0)
[2017-11-22 06:35] LABS: ANION GAP 9.7 (7.0-16.0); CALCIUM SERUM 9.3 mg/dL (8.6-10.3); CARBON DIOXIDE 28.6 mEq/L (21.0-31.0); CHLORIDE 100 mEq/L (98-107); CREATININE - SERUM 1.5 mg/dL (0.7-1.3); GLUCOSE 286 mg/dL (70-105); POTASSIUM SERUM 3.3 mEq/L (3.5-5.1); SODIUM SERUM 135 mEq/L (136-145)
[2017-11-22 06:47] LABS: BUN - UREA NITROGEN 85 mg/dL (7-25)
[2017-11-22] MEDS: INSULIN ASPART SLIDING SCALE 100 UNITS/ML UNIT SUBQ SCH ×4 (07:01→20:48)
[2017-11-22 07:05] LABS: WHITE BLOOD COUNT 17.4 Th/cmm (4.8-10.8)
[2017-11-22] MEDS: Linezolid 600mg/300mL 600 MG/300 ML BAG IV SCH ×2 (08:41→20:46)
[2017-11-22] MEDS: Aspirin 81mg Chewable Tab PO SCH (08:46)
[2017-11-22] MEDS: Pantoprazole 40 mg EC Tab PO SCH (08:46)
[2017-11-22] MEDS: Triple Antibiotic Ointment 28gm tube TP SCH (08:47)
[2017-11-22] MEDS: Insulin Detemir 100 units/mL 10mL Vial SUBQ SCH ×2 (10:00→17:05)
[2017-11-22] MEDS: Levofloxacin 250mg/50mL 250 MG in Premix Fluid 1 BAG IV SCH (10:37)
[2017-11-22 12:11] LABS: HEP A AB IGM Negative (Negative); HEP B CORE IGM Negative (Negative); HEP B SURFACE AG QL Negative (Negative); HEP C ANTIBODY <0.1 s/co ratio (0.0-0.9)
--- NOTE | 2017-11-22 15:52 | General Progress Note ---
Subjective - Review of Systems Service Date: 11/22/17 Subjective: pt seen and examined. NG tube in place. Objective - Results Result Diagrams: 11/22/17 05:20 11/22/17 05:20 Recent Labs: Laboratory Last Values WBC 17.4 Th/cmm (4.8-10.8) H 11/22/17 05:20 RBC 3.76 Mil/cmm (3.80-5.80) L 11/22/17 05:20 Hgb 11.6 gm/dL (12-16) L 11/22/17 05:20 Hct 33.2 % (41.0-60) L 11/22/17 05:20 MCV 88.5 fl (80-99) 11/22/17 05:20 MCH 30.9 pg (27.0-31.0) 11/22/17 05:20 MCHC Differential 34.9 pg (28.0-36.0) 11/22/17 05:20 RDW 14.2 % (11.5-20.0) 11/22/17 05:20 Plt Count 107 Th/cmm (150-400) L 11/22/17 05:20 MPV 9.0 fl 11/22/17 05:20 Neutrophils % 94.7 % (40.0-80.0) H 11/17/17 07:45 Band Neutrophils % 6 % (0-10) 11/19/17 05:30 Lymphocytes % 3.7 % (20.0-50.0) L 11/17/17 07:45 Monocytes % 1.6 % (2.0-10.0) L 11/17/17 07:45 Eosinophils % 0.0 % (0.0-5.0) 11/17/17 07:45 Basophils % 0.0 % (0.0-2.0) 11/15/17 09:01 Neutrophils (Manual) 87 % (40-80) H 11/19/17 05:30 Lymphocytes 6 % (20-50) L 11/19/17 05:30 Monocytes 1 % (2-10) L 11/19/17 05:30 Platelet Estimate SLIGHT DECREASED (NORMAL) 11/19/17 05:30 Specimen Source Arterial 11/18/17 10:29 Sample Site Right Radial 11/18/17 10:29 pH 7.48 (7.35-7.45) H 11/18/17 10:29 pCO2 29.0 mmHg (35.0-45.0) L 11/18/17 10:29 pO2 81.0 mmHg (80.0-100.0) 11/18/17 10:29 HCO3 24.1 mEq/L (20.0-26.0) 11/18/17 10:29 Base Excess -1.0 mEq/L (-3.0-3.0) 11/18/17 10:29 O2 Saturation 97.0 % (92.0-100.0) 11/18/17 10:29 Mario Test PASS 11/18/17 10:29 Vent Rate NA 11/15/17 08:47 Inspired O2 28 11/18/17 10:29 Tidal Volume NA 11/15/17 08:47 PEEP NA 11/15/17 08:47 Pressure (ins/psv/peep) NA 11/15/17 08:47 Critical Value PW 11/18/17 10:29 Sodium 135 mEq/L (136-145) L 11/22/17 05:20 Potassium 3.3 mEq/L (3.5-5.1) L 11/22/17 05:20 Chloride 100 mEq/L (98-107) 11/22/17 05:20 Carbon Dioxide 28.6 mEq/L (21.0-31.0) 11/22/17 05:20 Anion Gap 9.7 (7.0-16.0) 11/22/17 05:20 BUN 85 mg/dL (7-25) H* 11/22/17 05:20 Creatinine 1.5 mg/dL (0.7-1.3) H 11/22/17 05:20 Est GFR ( Amer) TNP 11/22/17 05:20 Est GFR (Non-Af Amer) [facility] 11/22/17 05:20 BUN/Creatinine Ratio 56.7 11/22/17 05:20 Glucose 286 mg/dL (70-105) H 11/22/17 05:20 POC Glucose 345 MG/DL (70 - 105) H 11/22/17 12:12 Hemoglobin A1c % 8.3 % (4.0-6.0) H 11/15/17 09:20 Whole Bld Lactic Acid 6.37 mmol/L (0.60-1.99) H* 11/15/17 11:20 Calcium 9.3 mg/dL (8.6-10.3) 11/22/17 05:20 Magnesium 2.3 mg/dL (1.9-2.7) 11/15/17 09:20 Total Bilirubin 0.4 mg/dL (0.3-1.0) 11/19/17 05:30 AST 62 U/L (13-39) H 11/19/17 05:30 ALT 99 U/L (7-52) H 11/19/17 05:30 Alkaline Phosphatase 106 U/L (34-104) H 11/19/17 05:30 Troponin I 0.19 ng/mL (0.01-0.05) H* 11/15/17 09:01 B-Natriuretic Peptide 728.0 pg/mL (5.0-100.0) H 11/15/17 09:20 Total Protein 5.6 gm/dL (6.0-8.3) L 11/19/17 05:30 Albumin 2.2 gm/dL (4.2-5.5) L 11/19/17 05:30 Globulin 3.4 gm/dL 11/19/17 05:30 Albumin/Globulin Ratio 0.7 (1.0-1.8) L 11/19/17 05:30 Triglycerides 201 mg/dL (<150) H 11/15/17 09:20 Cholesterol 75 mg/dL (<200) 11/15/17 09:20 LDL Cholesterol Direct 8 mg/dL (75-193) L 11/15/17 09:20 HDL Cholesterol 9 mg/dL (23-92) L 11/15/17 09:20 TSH 0.75 uIU/ml (0.34-5.60) 11/15/17 09:20 Hepatitis A IgM Ab Negative (Negative) 11/17/17 17:40 Hep Bs Antigen Negative (Negative) 11/17/17 17:40 Hep B Core IgM Ab Negative (Negative) 11/17/17 17:40 Hepatitis C Antibody <0.1 s/co ratio (0.0-0.9) 11/17/17 17:40 - Physical Exam Vitals and I&O: Vital Signs Temp 97.4 F 11/22/17 15:42 Pulse 61 11/22/17 15:42 Resp 19 11/22/17 15:42 BP 130/67 11/22/17 15:42 Pulse Ox 99 11/22/17 15:42 Intake & Output 11/21/17 11/22/17 11/22/17 18:59 06:59 18:59 Intake Total 1930 930 350 Output Total 850 850 Balance 1080 80 350 Weight (lbs) 82.418 kg 84.051 kg Intake: Intake, IV Amount 1350 350 350 Cefepime 1 gm In Sodium 50 Chloride 0.9% 50 ml @ 100 mls/hr IV Q24HR [facility] Rx#: [id number] Levofloxacin 250mg/50mL 50 50 250 mg In Premix Fluid 1 bag @ 50 mls/hr IV Q24H [facility] Rx#:[id number] Linezolid 600mg/300mL 600 300 300 300 mg In 300 ml @ 200 mls/ hr IV Q12HR@0900,2100 [facility] Rx#:[id number] Sodium Chloride 0.45% 1, 1000 000 ml @ 75 mls/hr IV . [id number] [facility] Rx#:[id number] Oral 0 Tube Feeding 580 480 Other 100 Output: Urine 850 850 Other: # Bowel Movements 2 Stool Characteristics Soft Soft Soft Brown Brown Brown Active Medications: Current Medications Acetaminophen (Tylenol 650mg Supp) 650 mg RC Q4H PRN PRN Reason: Fever > 101 Stop: 01/14/18 12:49 Albuterol/Ipratropium (Duoneb Neb) 3 ml HHN Q4HRT [facility] Stop: 01/15/18 18:59 Last Admin: 11/22/17 15:27 Dose: 3 ml Amlodipine Besylate (Norvasc) 5 mg PO [facility] Stop: 01/14/18 20:59 Last Admin: 11/21/17 21:55 Dose: 5 mg Aspirin (Aspirin Chewable) 81 mg PO DAILY [facility] Stop: 01/15/18 08:59 Last Admin: 11/22/17 08:46 Dose: 81 mg Atorvastatin Calcium (Lipitor) 20 mg PO [facility] Stop: 01/14/18 22:59 Last Admin: 11/21/17 21:56 Dose: 20 mg Carvedilol (Coreg) 3.125 mg PO BID [facility] Stop: 01/14/18 16:59 Last Admin: 11/22/17 08:48 Dose: 3.125 mg Fluconazole (Diflucan) 100 mg PO DAILY [facility] Stop: 01/17/18 08:59 Last Admin: 11/22/17 08:46 Dose: 100 mg Glucagon (Glucagen) 1 mg IM PRN PRN PRN Reason: hypoglycemia Stop: 01/14/18 16:44 Diltiazem HCl 125 mg/ Dextrose 125 mls @ 10 mls/hr IV TITR [facility]; 10 MG/HR PRN Reason: Protocol Stop: 01/14/18 11:44 Last Titration: 11/16/17 03:00 Dose: 0 mg/hr, 0 mls/hr Cefepime HCl 1 gm/ Sodium (Chloride) 50 mls @ 100 mls/hr IV Q24HR [facility] Stop: 01/14/18 17:59 Last Infusion: 11/21/17 19:22 Dose: Infused Levofloxacin 250 mg/ (Miscellaneous) 50 mls @ 50 mls/hr IV Q24H [facility] Stop: 01/15/18 09:59 Last Infusion: 11/22/17 11:07 Dose: Infused Linezolid (Zyvox) 600 mg in 300 mls @ 200 mls/hr IV Q12HR@0900,2100 [facility] Stop: 01/16/18 11:59 Last Infusion: 11/22/17 10:11 Dose: Infused Sodium Chloride (Nacl 0.45%) 1,000 mls @ 75 mls/hr IV .[id number] [facility] Stop: 01/19/18 22:18 Last Admin: 11/21/17 15:37 Dose: 75 mls/hr Insulin Aspart (Novolog Insulin Sliding Scale) 0 units SUBQ ACHS [facility] PRN Reason: Protocol Stop: 01/15/18 07:29 Last Admin: 11/22/17 12:16 Dose: 11 units Insulin Detemir (Levemir Insulin) 14 units SUBQ BID [facility] PRN Reason: Protocol Stop: 01/20/18 16:59 Last Admin: 11/22/17 10:00 Dose: 14 units Methylprednisolone Sodium Succinate (Solu-Medrol) 60 mg IVP Q6HR [facility] Stop: 01/21/18 17:59 Mirtazapine (Remeron) 30 mg PO HS [facility] Stop: 01/14/18 22:59 Last Admin: 11/21/17 21:55 Dose: 30 mg Miscellaneous (Probiotic Screen) 1 ea MC PRN PRN PRN Reason: PROTOCOL Stop: 01/19/18 16:29 Neomycin/Polymyxin/Bacitracin (Triple Antibiotic Ointment) 1 appl TP DAILY [facility] Stop: 01/15/18 08:59 Last Admin: 11/22/17 08:47 Dose: 1 appl Olanzapine (Zyprexa) 10 mg PO TID [facility] PRN Reason: Protocol Stop: 01/14/18 20:59 Last Admin: 11/22/17 13:42 Dose: 10 mg Pantoprazole Sodium (Protonix) 40 mg PO DAILY [facility] Stop: 01/15/18 08:59 Last Admin: 11/22/17 08:46 Dose: 40 mg Rivaroxaban (Xarelto) 5 mg PO DAILY [facility] Stop: 01/21/18 15:59 General: Other (lethargic) HEENT: PERRLA Neck: Supple Cardiovascular: Regular rate, Normal S1, Normal S2, Other (multiple PVC) Lungs: Other (rhonchi) Abdomen: Bowel sounds, Soft, Distended Extremities: Edema Psych/Mental Status: Other (lethargic) - Procedures Procedures: Procedures Procedure Code Date INSERT TUNNELED CV CATH 00004 11/15/17 INSERTION OF INFUSION DEV INTO R SUBCLAV VEIN, PERC APPROACH 06C704A 11/15/17 Assessment/Plan - Problem List Patient Problems: All Active Problems SEVERE RESPIRATORY DISTRESS (Acute) - Assessment Assessment: 1.PNEUMONIA. 2.COPD. 3.AFIB. 4.DEMENTIA. 5.PENNY. - Plan Plan: recheck labs in am plan for transfer to LTAC Nutritional Asmnt/Malnutr-PDOC - Dietary Evaluation Malnutrition Findings (Please click <Entered> for more info): Nutritional Asmnt/Malnutrition Start: 11/16/17 14: 06 Text: Status: Complete Freq: Document 11/16/17 14:06 LISA (Rec: 11/16/17 14:20 LISA [email or web address]) Nutritional Asmnt/Malnutrition Patient General Information Nutritional Screening High Risk Consult Diagnosis actute renal failure, sepsis, PNA Pertinent Medical Hx/Surgical Hx hyperlipidemia, CHF, HTN, COPD , ICD device Subjective Information Consult received for admit blood sugar 263. Pt seen sleeping in bed at the time of visit. Spoke with RN, pt refused breakfast this morning possible d/t weakness and being sick. Current Diet Order/ Nutrition Support low chlesterol 300gm Pertinent Medications glucagen, novolog, remeron, nacl 0.9% Pertinent Labs 11/15 Na 137, K 4.6, Cl 110, BUN 105, Cr 2.9, GLucose 295, POC 246-370 since admit, a1c 8.3, calcium 9.2 Nutritional Hx/Data Height 1.85 m Height (Calculated Centimeters) 185.4 Current Weight (lbs) 62.55 kg Weight (Calculated Kilograms) 62.6 Weight (Calculated Grams) 58647.4 [place] Body Weight 184 % [place] Body Weight 75 Body Mass Index (BMI) 18.1 Weight Status Underweight GI Symptoms GI Symptoms None Last BM no record Skin Integrity/Comment: pressure area to heels Current %PO Negligible < 25% Estimated Nutritional Goals Calories/Kcals/Kg 25-30 Kcals Calculated 7149-8360 based on IBW considering underweight and sepsis Protein g/k-1.2 Protein Calculated 84-100 Fluid: ml 2089-250ml (1ml/kcal) Nutritional Problem 2. Problem Problem altered nutrition related lab values Etiology acute renal failure, hx of DM Signs/Symptoms: BUN 105, Cr 2.9, GLucose 295, POC 246-370, a1c 8.3, 1. Problem Problem increased nutrition needs ( calorie and protein) Etiology increased metabolic demand for healing and underweight Signs/Symptoms: dx of sepsis and PNA, BMI 18.2 Malnutrition Alert Protein-Calorie Malnutrition N/A Is there a minimum of two criteria No selected? Query Text:Check all the applicable criteria. A minimum of two criteria are recommended for diagnosis of either severe or non-severe malnutrition. Intervention/Recommendation Comments 1. Recommend modify diet to CCHO, low cholesteral diet for optimal glycemic control. RN made aware, will talk to MD 2. Monitor PO intake, wt, labs and skin integrity 3. F/U as high risk in 2-3 days, 11/18-11/19 Expected Outcomes/Goals Expected Outcomes/Goals 1. PO intake to meet at least 75% of nutritional needs. 2. Wt stability, skin to remain intact, labs to improve
[2017-11-22] MEDS ORDERED: Potassium Chloride Elixir 20 mEq /15 mL UDC NG ONE (15:55)
[2017-11-22] MEDS: Cefepime 1 GM in Sodium Chloride 0.9% 50 ML IV SCH (17:05)
[2017-11-22] MEDS: Atorvastatin Calcium 10 MG TAB PO SCH (20:47)
--- NOTE | 2017-11-22 21:54 | Internal Medicine Prog Note ---
Internal Medicine Subjective - Subjective Service Date: 11/22/17 Patient seen and examined:: with staff (HE FAILED SWALLOW EVALUATION) Patient is:: awake, non-verbal, in bed, confused, congested Per staff patient has:: no adverse event (HE HAS POOR APETITE) Internal Medicine Objective - Results Result Diagrams: 11/22/17 05:20 11/22/17 05:20 Recent Labs: Laboratory Last Values WBC 17.4 Th/cmm (4.8-10.8) H 11/22/17 05:20 RBC 3.76 Mil/cmm (3.80-5.80) L 11/22/17 05:20 Hgb 11.6 gm/dL (12-16) L 11/22/17 05:20 Hct 33.2 % (41.0-60) L 11/22/17 05:20 MCV 88.5 fl (80-99) 11/22/17 05:20 MCH 30.9 pg (27.0-31.0) 11/22/17 05:20 MCHC Differential 34.9 pg (28.0-36.0) 11/22/17 05:20 RDW 14.2 % (11.5-20.0) 11/22/17 05:20 Plt Count 107 Th/cmm (150-400) L 11/22/17 05:20 MPV 9.0 fl 11/22/17 05:20 Neutrophils % 94.7 % (40.0-80.0) H 11/17/17 07:45 Band Neutrophils % 6 % (0-10) 11/19/17 05:30 Lymphocytes % 3.7 % (20.0-50.0) L 11/17/17 07:45 Monocytes % 1.6 % (2.0-10.0) L 11/17/17 07:45 Eosinophils % 0.0 % (0.0-5.0) 11/17/17 07:45 Basophils % 0.0 % (0.0-2.0) 11/15/17 09:01 Neutrophils (Manual) 87 % (40-80) H 11/19/17 05:30 Lymphocytes 6 % (20-50) L 11/19/17 05:30 Monocytes 1 % (2-10) L 11/19/17 05:30 Platelet Estimate SLIGHT DECREASED (NORMAL) 11/19/17 05:30 Specimen Source Arterial 11/18/17 10:29 Sample Site Right Radial 11/18/17 10:29 pH 7.48 (7.35-7.45) H 11/18/17 10:29 pCO2 29.0 mmHg (35.0-45.0) L 11/18/17 10:29 pO2 81.0 mmHg (80.0-100.0) 11/18/17 10:29 HCO3 24.1 mEq/L (20.0-26.0) 11/18/17 10:29 Base Excess -1.0 mEq/L (-3.0-3.0) 11/18/17 10:29 O2 Saturation 97.0 % (92.0-100.0) 11/18/17 10:29 Mario Test PASS 11/18/17 10:29 Vent Rate NA 11/15/17 08:47 Inspired O2 28 11/18/17 10:29 Tidal Volume NA 11/15/17 08:47 PEEP NA 11/15/17 08:47 Pressure (ins/psv/peep) NA 11/15/17 08:47 Critical Value PW 11/18/17 10:29 Sodium 135 mEq/L (136-145) L 11/22/17 05:20 Potassium 3.3 mEq/L (3.5-5.1) L 11/22/17 05:20 Chloride 100 mEq/L (98-107) 11/22/17 05:20 Carbon Dioxide 28.6 mEq/L (21.0-31.0) 11/22/17 05:20 Anion Gap 9.7 (7.0-16.0) 11/22/17 05:20 BUN 85 mg/dL (7-25) H* 11/22/17 05:20 Creatinine 1.5 mg/dL (0.7-1.3) H 11/22/17 05:20 Est GFR ( Amer) TNP 11/22/17 05:20 Est GFR (Non-Af Amer) TNP 11/22/17 05:20 BUN/Creatinine Ratio 56.7 11/22/17 05:20 Glucose 286 mg/dL (70-105) H 11/22/17 05:20 POC Glucose 182 MG/DL (70 - 105) H 11/22/17 19:42 Hemoglobin A1c % 8.3 % (4.0-6.0) H 11/15/17 09:20 Whole Bld Lactic Acid 6.37 mmol/L (0.60-1.99) H* 11/15/17 11:20 Calcium 9.3 mg/dL (8.6-10.3) 11/22/17 05:20 Magnesium 2.3 mg/dL (1.9-2.7) 11/15/17 09:20 Total Bilirubin 0.4 mg/dL (0.3-1.0) 11/19/17 05:30 AST 62 U/L (13-39) H 11/19/17 05:30 ALT 99 U/L (7-52) H 11/19/17 05:30 Alkaline Phosphatase 106 U/L (34-104) H 11/19/17 05:30 Troponin I 0.19 ng/mL (0.01-0.05) H* 11/15/17 09:01 B-Natriuretic Peptide 728.0 pg/mL (5.0-100.0) H 11/15/17 09:20 Total Protein 5.6 gm/dL (6.0-8.3) L 11/19/17 05:30 Albumin 2.2 gm/dL (4.2-5.5) L 11/19/17 05:30 Globulin 3.4 gm/dL 11/19/17 05:30 Albumin/Globulin Ratio 0.7 (1.0-1.8) L 11/19/17 05:30 Triglycerides 201 mg/dL (<150) H 11/15/17 09:20 Cholesterol 75 mg/dL (<200) 11/15/17 09:20 LDL Cholesterol Direct 8 mg/dL (75-193) L 11/15/17 09:20 HDL Cholesterol 9 mg/dL (23-92) L 11/15/17 09:20 TSH 0.75 uIU/ml (0.34-5.60) 11/15/17 09:20 Hepatitis A IgM Ab Negative (Negative) 11/17/17 17:40 Hep Bs Antigen Negative (Negative) 11/17/17 17:40 Hep B Core IgM Ab Negative (Negative) 11/17/17 17:40 Hepatitis C Antibody <0.1 s/co ratio (0.0-0.9) 11/17/17 17:40 - Physical Exam Vitals and I&O: Vital Signs Temp 97.6 F 11/22/17 20:00 Pulse 79 11/22/17 20:46 Resp 16 11/22/17 20:12 BP 129/84 11/22/17 20:46 Pulse Ox 98 11/22/17 20:12 Intake & Output 11/22/17 11/22/17 11/23/17 06:59 18:59 06:59 Intake Total 930 830 Output Total 850 2650 Balance 80 -1820 Weight (lbs) 84.051 kg 84.051 kg Intake: Intake, IV Amount 350 350 Cefepime 1 gm In Sodium 50 Chloride 0.9% 50 ml @ 100 mls/hr IV Q24HR [facility] Rx#: [id number] Levofloxacin 250mg/50mL 50 250 mg In Premix Fluid 1 bag @ 50 mls/hr IV Q24H [facility] Rx#:[id number] Linezolid 600mg/300mL 600 300 300 mg In 300 ml @ 200 mls/ hr IV Q12HR@0900,2100 [facility] Rx#:[id number] Oral 0 0 Tube Feeding 480 480 Other 100 Output: Urine 850 650 Other 2000 Other: # Bowel Movements 2 Stool Characteristics Soft Soft Brown Brown Active Medications: Current Medications Acetaminophen (Tylenol 650mg Supp) 650 mg RC Q4H PRN PRN Reason: Fever > 101 Stop: 01/14/18 12:49 Albuterol/Ipratropium (Duoneb Neb) 3 ml HHN Q4HRT [facility] Stop: 01/15/18 18:59 Last Admin: 11/22/17 20:11 Dose: 3 ml Amlodipine Besylate (Norvasc) 5 mg PO HS [facility] Stop: 01/14/18 20:59 Last Admin: 11/22/17 20:46 Dose: 5 mg Aspirin (Aspirin Chewable) 81 mg PO DAILY [facility] Stop: 01/15/18 08:59 Last Admin: 11/22/17 08:46 Dose: 81 mg Atorvastatin Calcium (Lipitor) 20 mg PO HS [facility] Stop: 01/14/18 22:59 Last Admin: 11/22/17 20:47 Dose: 20 mg Carvedilol (Coreg) 3.125 mg PO BID [facility] Stop: 01/14/18 16:59 Last Admin: 11/22/17 17:06 Dose: 3.125 mg Fluconazole (Diflucan) 100 mg PO DAILY [facility] Stop: 01/17/18 08:59 Last Admin: 11/22/17 08:46 Dose: 100 mg Glucagon (Glucagen) 1 mg IM PRN PRN PRN Reason: hypoglycemia Stop: 01/14/18 16:44 Diltiazem HCl 125 mg/ Dextrose 125 mls @ 10 mls/hr IV TITR [facility]; 10 MG/HR PRN Reason: Protocol Stop: 01/14/18 11:44 Last Titration: 11/16/17 03:00 Dose: 0 mg/hr, 0 mls/hr Cefepime HCl 1 gm/ Sodium (Chloride) 50 mls @ 100 mls/hr IV Q24HR [facility] Stop: 01/14/18 17:59 Last Admin: 11/22/17 17:05 Dose: 100 mls/hr Levofloxacin 250 mg/ (Miscellaneous) 50 mls @ 50 mls/hr IV Q24H [facility] Stop: 01/15/18 09:59 Last Infusion: 11/22/17 11:07 Dose: Infused Linezolid (Zyvox) 600 mg in 300 mls @ 200 mls/hr IV Q12HR@0900,2100 [facility] Stop: 01/16/18 11:59 Last Admin: 11/22/17 20:46 Dose: 200 mls/hr Sodium Chloride (Nacl 0.45%) 1,000 mls @ 75 mls/hr IV .[id number] [facility] Stop: 01/19/18 22:18 Last Admin: 11/21/17 15:37 Dose: 75 mls/hr Insulin Aspart (Novolog Insulin Sliding Scale) 0 units SUBQ ACHS [facility] PRN Reason: Protocol Stop: 01/15/18 07:29 Last Admin: 11/22/17 20:48 Dose: 3 units Insulin Detemir (Levemir Insulin) 14 units SUBQ BID [facility] PRN Reason: Protocol Stop: 01/20/18 16:59 Last Admin: 11/22/17 17:05 Dose: 14 units Methylprednisolone Sodium Succinate (Solu-Medrol) 60 mg IVP Q6HR [facility] Stop: 01/21/18 17:59 Last Admin: 11/22/17 17:04 Dose: 60 mg Mirtazapine (Remeron) 30 mg PO HS [facility] Stop: 01/14/18 22:59 Last Admin: 11/22/17 20:47 Dose: 30 mg Miscellaneous (Probiotic Screen) 1 ea MC PRN PRN PRN Reason: PROTOCOL Stop: 01/19/18 16:29 Neomycin/Polymyxin/Bacitracin (Triple Antibiotic Ointment) 1 appl TP DAILY [facility] Stop: 01/15/18 08:59 Last Admin: 11/22/17 08:47 Dose: 1 appl Olanzapine (Zyprexa) 10 mg PO TID [facility] PRN Reason: Protocol Stop: 01/14/18 20:59 Last Admin: 11/22/17 20:47 Dose: 10 mg Pantoprazole Sodium (Protonix) 40 mg PO DAILY [facility] Stop: 01/15/18 08:59 Last Admin: 11/22/17 08:46 Dose: 40 mg Rivaroxaban (Xarelto) 5 mg PO DAILY [facility] Stop: 01/21/18 15:59 Last Admin: 11/22/17 17:08 Dose: 5 mg General: weak, demented HEENT: PERRLA, EOMI, anicteric sclerae, throat clear Neck: Supple, No JVD, No thyromegaly, No LAD Lungs: congested, ronchi Cardiovascular: Normal S2, other (IRRIGULAR) Extremities: clear Neurological: no change - Procedures Procedures: Procedures Procedure Code Date INSERT TUNNELED CV CATH 01194 11/15/17 INSERTION OF INFUSION DEV INTO R SUBCLAV VEIN, PERC APPROACH 31B004R 11/15/17 Internal Medicine Assmt/Plan - Assessment Assessment: 1.PNEUMONIA. 2.COPD. 3.PAFIB 4.DEMENTIA. 5.PENNY. 6.DEHYDRATION. 7.DM - Plan Plan: CONTINUE ON CURRENT MEDICATION AND DIET.CONSLT .GI FOR GT PLACEMENT. Nutritional Asmnt/Malnutr-PDOC - Dietary Evaluation Malnutrition Findings (Please click <Entered> for more info): Nutritional Asmnt/Malnutrition Start: 11/16/17 14: 06 Text: Status: Complete Freq: Document 11/16/17 14:06 LISA (Rec: 11/16/17 14:20 [email or web address] Nutritional Asmnt/Malnutrition Patient General Information Nutritional Screening High Risk Consult Diagnosis actute renal failure, sepsis, PNA Pertinent Medical Hx/Surgical Hx hyperlipidemia, CHF, HTN, COPD , ICD device Subjective Information Consult received for admit blood sugar 263. Pt seen sleeping in bed at the time of visit. Spoke with RN, pt refused breakfast this morning possible d/t weakness and being sick. Current Diet Order/ Nutrition Support low chlesterol 300gm Pertinent Medications glucagen, novolog, remeron, nacl 0.9% Pertinent Labs 11/15 Na 137, K 4.6, Cl 110, BUN 105, Cr 2.9, GLucose 295, POC 246-370 since admit, a1c 8.3, calcium 9.2 Nutritional Hx/Data Height 1.85 m Height (Calculated Centimeters) 185.4 Current Weight (lbs) 62.55 kg Weight (Calculated Kilograms) 62.6 Weight (Calculated Grams) 56831.4 [place] Body Weight 184 % [place] Body Weight 75 Body Mass Index (BMI) 18.1 Weight Status Underweight GI Symptoms GI Symptoms None Last BM no record Skin Integrity/Comment: pressure area to heels Current %PO Negligible < 25% Estimated Nutritional Goals Calories/Kcals/Kg 25-30 Kcals Calculated 5382-9395 based on IBW considering underweight and sepsis Protein g/k-1.2 Protein Calculated 84-100 Fluid: ml 2089-250ml (1ml/kcal) Nutritional Problem 2. Problem Problem altered nutrition related lab values Etiology acute renal failure, hx of DM Signs/Symptoms: BUN 105, Cr 2.9, GLucose 295, POC 246-370, a1c 8.3, 1. Problem Problem increased nutrition needs ( calorie and protein) Etiology increased metabolic demand for healing and underweight Signs/Symptoms: dx of sepsis and PNA, BMI 18.2 Malnutrition Alert Protein-Calorie Malnutrition N/A Is there a minimum of two criteria No selected? Query Text:Check all the applicable criteria. A minimum of two criteria are recommended for diagnosis of either severe or non-severe malnutrition. Intervention/Recommendation Comments 1. Recommend modify diet to CCHO, low cholesteral diet for optimal glycemic control. RN made aware, will talk to MD 2. Monitor PO intake, wt, labs and skin integrity 3. F/U as high risk in 2-3 days, 11/18-11/19 Expected Outcomes/Goals Expected Outcomes/Goals 1. PO intake to meet at least 75% of nutritional needs. 2. Wt stability, skin to remain intact, labs to improve
[2017-11-23] MEDS: Sodium Chloride 0.45% 1,000 ML IV SCH ×2 (01:23→21:49)
[2017-11-23] MEDS: Albuterol/Ipratropium Neb 3 ML AERS HHN SCH ×6 (02:49→23:49)
[2017-11-23] MEDS: INSULIN ASPART SLIDING SCALE 100 UNITS/ML UNIT SUBQ SCH ×4 (06:38→20:32)
[2017-11-23] MEDS: Aspirin 81mg Chewable Tab PO SCH (09:58)
[2017-11-23] MEDS: Triple Antibiotic Ointment 28gm tube TP SCH (09:59)
[2017-11-23] MEDS: Linezolid 600mg/300mL 600 MG/300 ML BAG IV SCH ×2 (09:59→20:36)
[2017-11-23] MEDS: Pantoprazole 40 mg EC Tab PO SCH (09:59)
[2017-11-23] MEDS: Levofloxacin 250mg/50mL 250 MG in Premix Fluid 1 BAG IV SCH (10:01)
[2017-11-23] MEDS: Insulin Detemir 100 units/mL 10mL Vial SUBQ SCH ×2 (10:06→18:07)
--- NOTE | 2017-11-23 14:50 | General Progress Note ---
Subjective - Review of Systems Service Date: 11/23/17 Subjective: pt seen and examined. NG tube in place. Intake & Output 11/21/17 11/22/17 11/23/17 11/24/17 06:59 06:59 06:59 06:59 Intake Total 2810 3860 1130 Output Total 1650 1700 3000 Balance 1160 2160 -1870 Weight (lbs) 82.418 kg 84.051 kg 83.915 kg Objective - Results Result Diagrams: 11/22/17 05:20 11/22/17 05:20 Recent Labs: Laboratory Last Values WBC 17.4 Th/cmm (4.8-10.8) H 11/22/17 05:20 RBC 3.76 Mil/cmm (3.80-5.80) L 11/22/17 05:20 Hgb 11.6 gm/dL (12-16) L 11/22/17 05:20 Hct 33.2 % (41.0-60) L 11/22/17 05:20 MCV 88.5 fl (80-99) 11/22/17 05:20 MCH 30.9 pg (27.0-31.0) 11/22/17 05:20 MCHC Differential 34.9 pg (28.0-36.0) 11/22/17 05:20 RDW 14.2 % (11.5-20.0) 11/22/17 05:20 Plt Count 107 Th/cmm (150-400) L 11/22/17 05:20 MPV 9.0 fl 11/22/17 05:20 Neutrophils % 94.7 % (40.0-80.0) H 11/17/17 07:45 Band Neutrophils % 6 % (0-10) 11/19/17 05:30 Lymphocytes % 3.7 % (20.0-50.0) L 11/17/17 07:45 Monocytes % 1.6 % (2.0-10.0) L 11/17/17 07:45 Eosinophils % 0.0 % (0.0-5.0) 11/17/17 07:45 Basophils % 0.0 % (0.0-2.0) 11/15/17 09:01 Neutrophils (Manual) 87 % (40-80) H 11/19/17 05:30 Lymphocytes 6 % (20-50) L 11/19/17 05:30 Monocytes 1 % (2-10) L 11/19/17 05:30 Platelet Estimate SLIGHT DECREASED (NORMAL) 11/19/17 05:30 Specimen Source Arterial 11/18/17 10:29 Sample Site Right Radial 11/18/17 10:29 pH 7.48 (7.35-7.45) H 11/18/17 10:29 pCO2 29.0 mmHg (35.0-45.0) L 11/18/17 10:29 pO2 81.0 mmHg (80.0-100.0) 11/18/17 10:29 HCO3 24.1 mEq/L (20.0-26.0) 11/18/17 10:29 Base Excess -1.0 mEq/L (-3.0-3.0) 11/18/17 10:29 O2 Saturation 97.0 % (92.0-100.0) 11/18/17 10:29 Mario Test PASS 11/18/17 10:29 Vent Rate NA 11/15/17 08:47 Inspired O2 28 11/18/17 10:29 Tidal Volume NA 11/15/17 08:47 PEEP NA 11/15/17 08:47 Pressure (ins/psv/peep) NA 11/15/17 08:47 Critical Value PW 11/18/17 10:29 Sodium 135 mEq/L (136-145) L 11/22/17 05:20 Potassium 3.3 mEq/L (3.5-5.1) L 11/22/17 05:20 Chloride 100 mEq/L (98-107) 11/22/17 05:20 Carbon Dioxide 28.6 mEq/L (21.0-31.0) 11/22/17 05:20 Anion Gap 9.7 (7.0-16.0) 11/22/17 05:20 BUN 85 mg/dL (7-25) H* 11/22/17 05:20 Creatinine 1.5 mg/dL (0.7-1.3) H 11/22/17 05:20 Est GFR ( Amer) TNP 11/22/17 05:20 Est GFR (Non-Af Amer) TNP 11/22/17 05:20 BUN/Creatinine Ratio 56.7 11/22/17 05:20 Glucose 286 mg/dL (70-105) H 11/22/17 05:20 POC Glucose 266 MG/DL (70 - 105) H 11/23/17 05:30 Hemoglobin A1c % 8.3 % (4.0-6.0) H 11/15/17 09:20 Whole Bld Lactic Acid 6.37 mmol/L (0.60-1.99) H* 11/15/17 11:20 Calcium 9.3 mg/dL (8.6-10.3) 11/22/17 05:20 Magnesium 2.3 mg/dL (1.9-2.7) 11/15/17 09:20 Total Bilirubin 0.4 mg/dL (0.3-1.0) 11/19/17 05:30 AST 62 U/L (13-39) H 11/19/17 05:30 ALT 99 U/L (7-52) H 11/19/17 05:30 Alkaline Phosphatase 106 U/L (34-104) H 11/19/17 05:30 Troponin I 0.19 ng/mL (0.01-0.05) H* 11/15/17 09:01 B-Natriuretic Peptide 229.0 pg/mL (5.0-100.0) H 11/23/17 05:50 Total Protein 5.6 gm/dL (6.0-8.3) L 11/19/17 05:30 Albumin 2.2 gm/dL (4.2-5.5) L 11/19/17 05:30 Globulin 3.4 gm/dL 11/19/17 05:30 Albumin/Globulin Ratio 0.7 (1.0-1.8) L 11/19/17 05:30 Triglycerides 201 mg/dL (<150) H 11/15/17 09:20 Cholesterol 75 mg/dL (<200) 11/15/17 09:20 LDL Cholesterol Direct 8 mg/dL (75-193) L 11/15/17 09:20 HDL Cholesterol 9 mg/dL (23-92) L 11/15/17 09:20 TSH 0.75 uIU/ml (0.34-5.60) 11/15/17 09:20 Hepatitis A IgM Ab Negative (Negative) 11/17/17 17:40 Hep Bs Antigen Negative (Negative) 11/17/17 17:40 Hep B Core IgM Ab Negative (Negative) 11/17/17 17:40 Hepatitis C Antibody <0.1 s/co ratio (0.0-0.9) 11/17/17 17:40 - Physical Exam Vitals and I&O: Vital Signs Temp 98.6 F 11/23/17 04:00 Pulse 66 11/23/17 11:20 Resp 18 11/23/17 11:20 BP 158/88 11/23/17 09:57 Pulse Ox 100 11/23/17 11:20 Intake & Output 11/22/17 11/23/17 11/23/17 18:59 06:59 18:59 Intake Total 830 300 Output Total 2650 350 Balance -1820 -50 Weight (lbs) 84.051 kg 83.915 kg Intake: Intake, IV Amount 350 300 Levofloxacin 250mg/50mL 50 250 mg In Premix Fluid 1 bag @ 50 mls/hr IV Q24H [facility] Rx#:[id number] Linezolid 600mg/300mL 600 300 300 mg In 300 ml @ 200 mls/ hr IV Q12HR@0900,2100 [facility] Rx#:[id number] Oral 0 Tube Feeding 480 Output: Urine 650 350 Other 2000 Other: Stool Characteristics Soft Brown Active Medications: Current Medications Acetaminophen (Tylenol 650mg Supp) 650 mg RC Q4H PRN PRN Reason: Fever > 101 Stop: 01/14/18 12:49 Albuterol/Ipratropium (Duoneb Neb) 3 ml HHN Q4HRT [facility] Stop: 01/15/18 18:59 Last Admin: 11/23/17 11:19 Dose: 3 ml Amlodipine Besylate (Norvasc) 5 mg PO HS [facility] Stop: 01/14/18 20:59 Last Admin: 11/22/17 20:46 Dose: 5 mg Aspirin (Aspirin Chewable) 81 mg PO DAILY [facility] Stop: 01/15/18 08:59 Last Admin: 11/23/17 09:58 Dose: 81 mg Atorvastatin Calcium (Lipitor) 20 mg PO HS [facility] Stop: 01/14/18 22:59 Last Admin: 11/22/17 20:47 Dose: 20 mg Carvedilol (Coreg) 3.125 mg PO BID [facility] Stop: 01/14/18 16:59 Last Admin: 11/23/17 09:57 Dose: 3.125 mg Fluconazole (Diflucan) 100 mg PO DAILY [facility] Stop: 01/17/18 08:59 Last Admin: 11/23/17 09:58 Dose: 100 mg Glucagon (Glucagen) 1 mg IM PRN PRN PRN Reason: hypoglycemia Stop: 01/14/18 16:44 Diltiazem HCl 125 mg/ Dextrose 125 mls @ 10 mls/hr IV TITR [facility]; 10 MG/HR PRN Reason: Protocol Stop: 01/14/18 11:44 Last Titration: 11/16/17 03:00 Dose: 0 mg/hr, 0 mls/hr Cefepime HCl 1 gm/ Sodium (Chloride) 50 mls @ 100 mls/hr IV Q24HR [facility] Stop: 01/14/18 17:59 Last Admin: 11/22/17 17:05 Dose: 100 mls/hr Levofloxacin 250 mg/ (Miscellaneous) 50 mls @ 50 mls/hr IV Q24H [facility] Stop: 01/15/18 09:59 Last Admin: 11/23/17 10:01 Dose: 100 mls/hr Linezolid (Zyvox) 600 mg in 300 mls @ 200 mls/hr IV Q12HR@0900,2100 [facility] Stop: 01/16/18 11:59 Last Admin: 11/23/17 09:59 Dose: 200 mls/hr Sodium Chloride (Nacl 0.45%) 1,000 mls @ 75 mls/hr IV .[id number] [facility] Stop: 01/19/18 22:18 Last Admin: 11/23/17 01:23 Dose: 75 mls/hr Insulin Aspart (Novolog Insulin Sliding Scale) 0 units SUBQ ACHS [facility] PRN Reason: Protocol Stop: 01/15/18 07:29 Last Admin: 11/23/17 12:49 Dose: 9 units Insulin Detemir (Levemir Insulin) 14 units SUBQ BID [facility] PRN Reason: Protocol Stop: 01/20/18 16:59 Last Admin: 11/23/17 10:06 Dose: 14 units Methylprednisolone Sodium Succinate (Solu-Medrol) 60 mg IVP Q6HR [facility] Stop: 01/21/18 17:59 Last Admin: 11/23/17 12:53 Dose: 60 mg Mirtazapine (Remeron) 30 mg PO [facility] Stop: 01/14/18 22:59 Last Admin: 11/22/17 20:47 Dose: 30 mg Miscellaneous (Probiotic Screen) 1 ea MC PRN PRN PRN Reason: PROTOCOL Stop: 01/19/18 16:29 Neomycin/Polymyxin/Bacitracin (Triple Antibiotic Ointment) 1 appl TP DAILY [facility] Stop: 01/15/18 08:59 Last Admin: 11/23/17 09:59 Dose: 1 appl Olanzapine (Zyprexa) 10 mg PO TID [facility] PRN Reason: Protocol Stop: 01/14/18 20:59 Last Admin: 11/23/17 09:58 Dose: 10 mg Pantoprazole Sodium (Protonix) 40 mg PO DAILY [facility] Stop: 01/15/18 08:59 Last Admin: 11/23/17 09:59 Dose: 40 mg Rivaroxaban (Xarelto) 5 mg PO DAILY [facility] Stop: 01/21/18 15:59 Last Admin: 11/23/17 11:31 Dose: Not Given General: Other (lethargic) HEENT: PERRLA Neck: Supple Cardiovascular: Regular rate, Normal S1, Normal S2, Other (multiple PVC) Lungs: Other (rhonchi) Abdomen: Bowel sounds, Soft, Distended Extremities: Edema Psych/Mental Status: Other (lethargic) - Procedures Procedures: Procedures Procedure Code Date INSERT TUNNELED CV CATH [id number] 11/15/17 INSERTION OF INFUSION DEV INTO R SUBCLAV VEIN, PERC APPROACH 20I060J 11/15/17 Assessment/Plan - Problem List Patient Problems: All Active Problems SEVERE RESPIRATORY DISTRESS (Acute) - Assessment Assessment: 1.PNEUMONIA. 2.COPD. 3.AFIB. 4.DEMENTIA. 5.PENNY. secondary to ATN - Plan Plan: recheck labs in am renal function has recovered will remove Matthew catheter plan for placement of PEG then plan for transfer to LTAC Nutritional Asmnt/Malnutr-PDOC - Dietary Evaluation Malnutrition Findings (Please click <Entered> for more info): Nutritional Asmnt/Malnutrition Start: 11/16/17 14: 06 Text: Status: Complete Freq: Document 11/16/17 14:06 LISA (Rec: 11/16/17 14:20 [email or web address]) Nutritional Asmnt/Malnutrition Patient General Information Nutritional Screening High Risk Consult Diagnosis actute renal failure, sepsis, PNA Pertinent Medical Hx/Surgical Hx hyperlipidemia, CHF, HTN, COPD , ICD device Subjective Information Consult received for admit blood sugar 263. Pt seen sleeping in bed at the time of visit. Spoke with RN, pt refused breakfast this morning possible d/t weakness and being sick. Current Diet Order/ Nutrition Support low chlesterol 300gm Pertinent Medications glucagen, novolog, remeron, nacl 0.9% Pertinent Labs 11/15 Na 137, K 4.6, Cl 110, BUN 105, Cr 2.9, GLucose 295, POC 246-370 since admit, a1c 8.3, calcium 9.2 Nutritional Hx/Data Height 1.85 m Height (Calculated Centimeters) 185.4 Current Weight (lbs) 62.55 kg Weight (Calculated Kilograms) 62.6 Weight (Calculated Grams) 82490.4 [place] Body Weight 184 % [place] Body Weight 75 Body Mass Index (BMI) 18.1 Weight Status Underweight GI Symptoms GI Symptoms None Last BM no record Skin Integrity/Comment: pressure area to heels Current %PO Negligible < 25% Estimated Nutritional Goals Calories/Kcals/Kg 25-30 Kcals Calculated 0871-7065 based on IBW considering underweight and sepsis Protein g/k-1.2 Protein Calculated 84-100 Fluid: ml 2089-250ml (1ml/kcal) Nutritional Problem 2. Problem Problem altered nutrition related lab values Etiology acute renal failure, hx of DM Signs/Symptoms: BUN 105, Cr 2.9, GLucose 295, POC 246-370, a1c 8.3, 1. Problem Problem increased nutrition needs ( calorie and protein) Etiology increased metabolic demand for healing and underweight Signs/Symptoms: dx of sepsis and PNA, BMI 18.2 Malnutrition Alert Protein-Calorie Malnutrition N/A Is there a minimum of two criteria No selected? Query Text:Check all the applicable criteria. A minimum of two criteria are recommended for diagnosis of either severe or non-severe malnutrition. Intervention/Recommendation Comments 1. Recommend modify diet to CCHO, low cholesteral diet for optimal glycemic control. RN made aware, will talk to MD 2. Monitor PO intake, wt, labs and skin integrity 3. F/U as high risk in 2-3 days, 11/18-11/19 Expected Outcomes/Goals Expected Outcomes/Goals 1. PO intake to meet at least 75% of nutritional needs. 2. Wt stability, skin to remain intact, labs to improve
[2017-11-23] MEDS: Cefepime 1 GM in Sodium Chloride 0.9% 50 ML IV SCH (18:15)
--- NOTE | 2017-11-23 19:40 | Internal Medicine Prog Note ---
Internal Medicine Subjective - Subjective Service Date: 11/23/17 Patient seen and examined:: with staff (NINO CATH IS OUT.NO MORE DIALYSIS.) Patient is:: awake, non-verbal, in bed, confused, congested Per staff patient has:: no adverse event (HE HAS POOR APETITE) Internal Medicine Objective - Results Result Diagrams: 11/22/17 05:20 11/22/17 05:20 Recent Labs: Laboratory Last Values WBC 17.4 Th/cmm (4.8-10.8) H 11/22/17 05:20 RBC 3.76 Mil/cmm (3.80-5.80) L 11/22/17 05:20 Hgb 11.6 gm/dL (12-16) L 11/22/17 05:20 Hct 33.2 % (41.0-60) L 11/22/17 05:20 MCV 88.5 fl (80-99) 11/22/17 05:20 MCH 30.9 pg (27.0-31.0) 11/22/17 05:20 MCHC Differential 34.9 pg (28.0-36.0) 11/22/17 05:20 RDW 14.2 % (11.5-20.0) 11/22/17 05:20 Plt Count 107 Th/cmm (150-400) L 11/22/17 05:20 MPV 9.0 fl 11/22/17 05:20 Neutrophils % 94.7 % (40.0-80.0) H 11/17/17 07:45 Band Neutrophils % 6 % (0-10) 11/19/17 05:30 Lymphocytes % 3.7 % (20.0-50.0) L 11/17/17 07:45 Monocytes % 1.6 % (2.0-10.0) L 11/17/17 07:45 Eosinophils % 0.0 % (0.0-5.0) 11/17/17 07:45 Basophils % 0.0 % (0.0-2.0) 11/15/17 09:01 Neutrophils (Manual) 87 % (40-80) H 11/19/17 05:30 Lymphocytes 6 % (20-50) L 11/19/17 05:30 Monocytes 1 % (2-10) L 11/19/17 05:30 Platelet Estimate SLIGHT DECREASED (NORMAL) 11/19/17 05:30 Specimen Source Arterial 11/18/17 10:29 Sample Site Right Radial 11/18/17 10:29 pH 7.48 (7.35-7.45) H 11/18/17 10:29 pCO2 29.0 mmHg (35.0-45.0) L 11/18/17 10:29 pO2 81.0 mmHg (80.0-100.0) 11/18/17 10:29 HCO3 24.1 mEq/L (20.0-26.0) 11/18/17 10:29 Base Excess -1.0 mEq/L (-3.0-3.0) 11/18/17 10:29 O2 Saturation 97.0 % (92.0-100.0) 11/18/17 10:29 Mario Test PASS 11/18/17 10:29 Vent Rate NA 11/15/17 08:47 Inspired O2 28 11/18/17 10:29 Tidal Volume NA 11/15/17 08:47 PEEP NA 11/15/17 08:47 Pressure (ins/psv/peep) NA 11/15/17 08:47 Critical Value PW 11/18/17 10:29 Sodium 135 mEq/L (136-145) L 11/22/17 05:20 Potassium 3.3 mEq/L (3.5-5.1) L 11/22/17 05:20 Chloride 100 mEq/L (98-107) 11/22/17 05:20 Carbon Dioxide 28.6 mEq/L (21.0-31.0) 11/22/17 05:20 Anion Gap 9.7 (7.0-16.0) 11/22/17 05:20 BUN 85 mg/dL (7-25) H* 11/22/17 05:20 Creatinine 1.5 mg/dL (0.7-1.3) H 11/22/17 05:20 Est GFR ( Amer) TNP 11/22/17 05:20 Est GFR (Non-Af Amer) TNP 11/22/17 05:20 BUN/Creatinine Ratio 56.7 11/22/17 05:20 Glucose 286 mg/dL (70-105) H 11/22/17 05:20 POC Glucose 266 MG/DL (70 - 105) H 11/23/17 05:30 Hemoglobin A1c % 8.3 % (4.0-6.0) H 11/15/17 09:20 Whole Bld Lactic Acid 6.37 mmol/L (0.60-1.99) H* 11/15/17 11:20 Calcium 9.3 mg/dL (8.6-10.3) 11/22/17 05:20 Magnesium 2.3 mg/dL (1.9-2.7) 11/15/17 09:20 Total Bilirubin 0.4 mg/dL (0.3-1.0) 11/19/17 05:30 AST 62 U/L (13-39) H 11/19/17 05:30 ALT 99 U/L (7-52) H 11/19/17 05:30 Alkaline Phosphatase 106 U/L (34-104) H 11/19/17 05:30 Troponin I 0.19 ng/mL (0.01-0.05) H* 11/15/17 09:01 B-Natriuretic Peptide 229.0 pg/mL (5.0-100.0) H 11/23/17 05:50 Total Protein 5.6 gm/dL (6.0-8.3) L 11/19/17 05:30 Albumin 2.2 gm/dL (4.2-5.5) L 11/19/17 05:30 Globulin 3.4 gm/dL 11/19/17 05:30 Albumin/Globulin Ratio 0.7 (1.0-1.8) L 11/19/17 05:30 Triglycerides 201 mg/dL (<150) H 11/15/17 09:20 Cholesterol 75 mg/dL (<200) 11/15/17 09:20 LDL Cholesterol Direct 8 mg/dL (75-193) L 11/15/17 09:20 HDL Cholesterol 9 mg/dL (23-92) L 11/15/17 09:20 TSH 0.75 uIU/ml (0.34-5.60) 11/15/17 09:20 Hepatitis A IgM Ab Negative (Negative) 11/17/17 17:40 Hep Bs Antigen Negative (Negative) 11/17/17 17:40 Hep B Core IgM Ab Negative (Negative) 11/17/17 17:40 Hepatitis C Antibody <0.1 s/co ratio (0.0-0.9) 11/17/17 17:40 - Physical Exam Vitals and I&O: Vital Signs Temp 98.6 F 11/23/17 04:00 Pulse 92 11/23/17 18:11 Resp 18 11/23/17 15:31 BP 128/81 11/23/17 18:11 Pulse Ox 100 11/23/17 15:31 Intake & Output 11/23/17 11/23/17 11/24/17 06:59 18:59 06:59 Intake Total 300 Output Total 350 Balance -50 Weight (lbs) 83.915 kg Intake: Intake, IV Amount 300 Linezolid 600mg/300mL 600 300 mg In 300 ml @ 200 mls/ hr IV Q12HR@0900,2100 [facility] Rx#:[id number] Output: Urine 350 Active Medications: Current Medications Acetaminophen (Tylenol 650mg Supp) 650 mg RC Q4H PRN PRN Reason: Fever > 101 Stop: 01/14/18 12:49 Albuterol/Ipratropium (Duoneb Neb) 3 ml HHN Q4HRT [facility] Stop: 01/15/18 18:59 Last Admin: 11/23/17 15:31 Dose: 3 ml Amlodipine Besylate (Norvasc) 5 mg PO HS [facility] Stop: 01/14/18 20:59 Last Admin: 11/22/17 20:46 Dose: 5 mg Aspirin (Aspirin Chewable) 81 mg PO DAILY [facility] Stop: 01/15/18 08:59 Last Admin: 11/23/17 09:58 Dose: 81 mg Atorvastatin Calcium (Lipitor) 20 mg PO HS [facility] Stop: 01/14/18 22:59 Last Admin: 11/22/17 20:47 Dose: 20 mg Carvedilol (Coreg) 3.125 mg PO BID [facility] Stop: 01/14/18 16:59 Last Admin: 11/23/17 18:11 Dose: 3.125 mg Fluconazole (Diflucan) 100 mg PO DAILY [facility] Stop: 01/17/18 08:59 Last Admin: 11/23/17 09:58 Dose: 100 mg Glucagon (Glucagen) 1 mg IM PRN PRN PRN Reason: hypoglycemia Stop: 01/14/18 16:44 Diltiazem HCl 125 mg/ Dextrose 125 mls @ 10 mls/hr IV TITR [facility]; 10 MG/HR PRN Reason: Protocol Stop: 01/14/18 11:44 Last Titration: 11/16/17 03:00 Dose: 0 mg/hr, 0 mls/hr Cefepime HCl 1 gm/ Sodium (Chloride) 50 mls @ 100 mls/hr IV Q24HR [facility] Stop: 01/14/18 17:59 Last Admin: 11/23/17 18:15 Dose: 100 mls/hr Levofloxacin 250 mg/ (Miscellaneous) 50 mls @ 50 mls/hr IV Q24H [facility] Stop: 01/15/18 09:59 Last Admin: 11/23/17 10:01 Dose: 100 mls/hr Linezolid (Zyvox) 600 mg in 300 mls @ 200 mls/hr IV Q12HR@0900,2100 [facility] Stop: 01/16/18 11:59 Last Admin: 11/23/17 09:59 Dose: 200 mls/hr Sodium Chloride (Nacl 0.45%) 1,000 mls @ 75 mls/hr IV .[id number] [facility] Stop: 01/19/18 22:18 Last Admin: 11/23/17 01:23 Dose: 75 mls/hr Insulin Aspart (Novolog Insulin Sliding Scale) 0 units SUBQ ACHS [facility] PRN Reason: Protocol Stop: 01/15/18 07:29 Last Admin: 11/23/17 18:06 Dose: 7 units Insulin Detemir (Levemir Insulin) 14 units SUBQ BID [facility] PRN Reason: Protocol Stop: 01/20/18 16:59 Last Admin: 11/23/17 18:07 Dose: 14 units Methylprednisolone Sodium Succinate (Solu-Medrol) 60 mg IVP Q6HR [facility] Stop: 01/21/18 17:59 Last Admin: 11/23/17 18:09 Dose: 60 mg Mirtazapine (Remeron) 30 mg PO HS [facility] Stop: 01/14/18 22:59 Last Admin: 11/22/17 20:47 Dose: 30 mg Miscellaneous (Probiotic Screen) 1 ea MC PRN PRN PRN Reason: PROTOCOL Stop: 01/19/18 16:29 Neomycin/Polymyxin/Bacitracin (Triple Antibiotic Ointment) 1 appl TP DAILY [facility] Stop: 01/15/18 08:59 Last Admin: 11/23/17 09:59 Dose: 1 appl Olanzapine (Zyprexa) 10 mg PO TID [facility] PRN Reason: Protocol Stop: 01/14/18 20:59 Last Admin: 11/23/17 18:12 Dose: 10 mg Pantoprazole Sodium (Protonix) 40 mg PO DAILY [facility] Stop: 01/15/18 08:59 Last Admin: 11/23/17 09:59 Dose: 40 mg Rivaroxaban (Xarelto) 5 mg PO DAILY [facility] Stop: 01/21/18 15:59 Last Admin: 11/23/17 11:31 Dose: Not Given General: weak, demented HEENT: PERRLA, EOMI, anicteric sclerae, throat clear Neck: Supple, No JVD, No thyromegaly, No LAD Lungs: congested, ronchi Cardiovascular: Normal S2, other (IRRIGULAR) Extremities: clear Neurological: no change - Procedures Procedures: Procedures Procedure Code Date INSERT TUNNELED CV CATH [id number] 11/15/17 INSERTION OF INFUSION DEV INTO R SUBCLAV VEIN, PERC APPROACH [id number] 11/15/17 Internal Medicine Assmt/Plan - Assessment Assessment: 1.PNEUMONIA. 2.COPD. 3.PAFIB 4.DEMENTIA. 5.PENNY. 6.DEHYDRATION. 7.DM - Plan Plan: CONTINUE ON CURRENT MEDICATION AND DIET. Nutritional Asmnt/Malnutr-PDOC - Dietary Evaluation Malnutrition Findings (Please click <Entered> for more info): Nutritional Asmnt/Malnutrition Start: 11/16/17 14: 06 Text: Status: Complete Freq: Document 11/16/17 14:06 LISA (Rec: 11/16/17 14:20 BRIEN [email or web address]) Nutritional Asmnt/Malnutrition Patient General Information Nutritional Screening High Risk Consult Diagnosis actute renal failure, sepsis, PNA Pertinent Medical Hx/Surgical Hx hyperlipidemia, CHF, HTN, COPD , ICD device Subjective Information Consult received for admit blood sugar 263. Pt seen sleeping in bed at the time of visit. Spoke with RN, pt refused breakfast this morning possible d/t weakness and being sick. Current Diet Order/ Nutrition Support low chlesterol 300gm Pertinent Medications glucagen, novolog, remeron, nacl 0.9% Pertinent Labs 11/15 Na 137, K 4.6, Cl 110, BUN 105, Cr 2.9, GLucose 295, POC 246-370 since admit, a1c 8.3, calcium 9.2 Nutritional Hx/Data Height 1.85 m Height (Calculated Centimeters) 185.4 Current Weight (lbs) 62.55 kg Weight (Calculated Kilograms) 62.6 Weight (Calculated Grams) 94050.4 [place] Body Weight 184 % [place] Body Weight 75 Body Mass Index (BMI) 18.1 Weight Status Underweight GI Symptoms GI Symptoms None Last BM no record Skin Integrity/Comment: pressure area to heels Current %PO Negligible < 25% Estimated Nutritional Goals Calories/Kcals/Kg 25-30 Kcals Calculated 4652-1796 based on IBW considering underweight and sepsis Protein g/k-1.2 Protein Calculated 84-100 Fluid: ml 2089-250ml (1ml/kcal) Nutritional Problem 2. Problem Problem altered nutrition related lab values Etiology acute renal failure, hx of DM Signs/Symptoms: BUN 105, Cr 2.9, GLucose 295, POC 246-370, a1c 8.3, 1. Problem Problem increased nutrition needs ( calorie and protein) Etiology increased metabolic demand for healing and underweight Signs/Symptoms: dx of sepsis and PNA, BMI 18.2 Malnutrition Alert Protein-Calorie Malnutrition N/A Is there a minimum of two criteria No selected? Query Text:Check all the applicable criteria. A minimum of two criteria are recommended for diagnosis of either severe or non-severe malnutrition. Intervention/Recommendation Comments 1. Recommend modify diet to CCHO, low cholesteral diet for optimal glycemic control. RN made aware, will talk to MD 2. Monitor PO intake, wt, labs and skin integrity 3. F/U as high risk in 2-3 days, 11/18-11/19 Expected Outcomes/Goals Expected Outcomes/Goals 1. PO intake to meet at least 75% of nutritional needs. 2. Wt stability, skin to remain intact, labs to improve
[2017-11-23] MEDS: Atorvastatin Calcium 10 MG TAB PO SCH (20:33)
--- NOTE | 2017-11-24 01:34 | Consultation ---
DATE OF CONSULTATION: 11/23/2017 INPATIENT GI CONSULTATION CONSULTING PHYSICIAN: Dr. Frost. REASON FOR CONSULTATION: G-tube placement. HISTORY OF PRESENT ILLNESS: The patient is a 77-year-old male with multiple medical problems including congestive heart failure, coronary artery disease, COPD, atrial fibrillation on Xarelto, end-stage renal disease on hemodialysis, who has been admitted to the hospital since 11/15/2017 with respiratory failure and has now failed a swallow evaluation. The patient has been receiving antibiotics for presumed pneumonia and has also been maintained on hemodialysis given history of end-stage renal dialysis. The patient also is receiving Xarelto for his history of atrial fibrillation and has recovered to a degree from his pneumonia. However, a swallow evaluation was performed and the patient did not pass ____ and thus GI is asked to evaluate for G-tube. PAST MEDICAL HISTORY: Atrial fibrillation, on Xarelto; congestive heart failure, coronary artery disease, end-stage renal disease, on hemodialysis, COPD, hypertension, type 2 diabetes, dementia. PAST SURGICAL HISTORY: Recent placement of a HD catheter, otherwise unknown. FAMILY HISTORY: Noncontributory. SOCIAL HISTORY: The patient is a permanent resident of a nursing facility. There is no documented history of smoking or drinking. REVIEW OF SYSTEMS: Not possible given the patient has reduced mental status. CURRENT MEDICATIONS: Include Tylenol, albuterol, amlodipine, aspirin, Lipitor, Coreg, cefepime, diltiazem, fluconazole, insulin, levofloxacin, linezolid, Solu-Medrol, Remeron, Zyprexa, Protonix, Xarelto. PHYSICAL EXAMINATION: VITAL SIGNS: Blood pressure is 119/67, pulse of 83 beats per minute, temperature 98.6, respiratory rate is 19, oxygenation 98% on 2 liters. GENERAL: The patient is lying flat, alert and oriented x 0. HEAD, EARS, EYES, NOSE AND THROAT: There is no scleral icterus. Pupils are equal and reactive to light. Extraocular muscles are intact. Moist mucous membranes. NECK: Supple. There is JVD, no thyromegaly, no lymphadenopathy. CHEST: There are bibasilar crackles. CARDIOVASCULAR: S1, S2 are present, irregularly irregular rhythm. ABDOMEN: Soft, nontender, no guarding, no rebound, no distention. EXTREMITIES: 1+ pitting edema is present. Pulses are not palpable. SKIN: No obvious jaundice. LABORATORY DATA: White blood cell count is 17.4, hemoglobin 11.6, platelet count 107. Sodium 135, BUN 85, creatinine 1.5. IMAGING: Chest x-ray on 11/21/2017 shows resolution in right lower lobe infiltrate. IMPRESSION: This is a 77-year-old male with coronary artery disease, CHF, COPD, atrial fibrillation on Xarelto, end-stage renal disease on hemodialysis, type 2 diabetes and dementia who was admitted to the hospital recovering from a pneumonia who has now failed swallow evaluation. 1. Dysphagia with failed swallow evaluation. 2. Respiratory failure with pneumonia. 3. Atrial fibrillation, on Xarelto. 4. CHF. 5. Coronary artery disease. 6. End-stage renal disease, on hemodialysis. 7. COPD. 8. Dementia. DISCUSSION: Given that the patient has failed a swallow evaluation ____ and has already recovered from the pneumonia, it is likely that the patient will not be able to fully regain swallowing function and the ability to take adequate nutrition, thus G-tube is not unreasonable. The patient currently is on Xarelto and thus he has high bleeding risk at the moment and this medication needs to be held for at least 48 hours before G-tube placement. This message was relayed to the patient's nurse this morning. RECOMMENDATION: 1. Hold Xarelto for at least 48 hours and can plan for G-tube after this via the endoscopic approach. 2. The patient is on cefepime and multiple other antibiotics at the moment, thus will not need pre-G-tube antibiotic coverage. 3. Continue other management as per other consultants. Thank you for allowing me to participate in this patient's care. Please call with any further questions. JOB# [id number]
[2017-11-24] MEDS: Albuterol/Ipratropium Neb 3 ML AERS HHN SCH ×6 (02:18→23:02)
[2017-11-24 06:12] LABS: HEMATOCRIT 31.5 % (41.0-60); HEMOGLOBIN 10.7 gm/dL (12-16); LYMPHOCYTE ABSOLUTE 0.5 Th/cmm (1.5-3.0); MEAN CELL VOLUME 88.5 fl (80-99); MEAN CORPUSCULAR HEMOGLOBIN 30.2 pg (27.0-31.0); MEAN CORPUSCULAR HGB CONC 34.1 pg (28.0-36.0); MEAN PLATELET VOLUME 10.2 fl; MONOCYTE ABSOLUTE 0.1 Th/cmm (0.3-1.0); NEUTROPHILE ABSOLUTE 22.9 Th/cmm (1.8-8.0); RED BLOOD COUNT 3.56 Mil/cmm (3.80-5.80); RED CELL DISTRIBUTION WIDTH 13.8 % (11.5-20.0)
[2017-11-24 06:21] LABS: PLATELET COUNT 146 Th/cmm (150-400); WHITE BLOOD COUNT 23.5 Th/cmm (4.8-10.8)
[2017-11-24 06:25] LABS: INR 1.16 (0.5-1.4); PROTHROMBIN TIME (TEST) 12.2 SECONDS (9.5-11.5)
[2017-11-24] MEDS: INSULIN ASPART SLIDING SCALE 100 UNITS/ML UNIT SUBQ SCH ×4 (06:29→21:12)
[2017-11-24 06:30] LABS: ALB/GLOB RATIO 0.9 (1.0-1.8); ALBUMIN 2.2 gm/dL (4.2-5.5); ALKALINE PHOSPHATASE 63 U/L (34-104); BILIRUBIN,TOTAL 0.3 mg/dL (0.3-1.0); CALCIUM SERUM 9.3 mg/dL (8.6-10.3); CARBON DIOXIDE 26.4 mEq/L (21.0-31.0); CHLORIDE 102 mEq/L (98-107); CREATININE - SERUM 1.5 mg/dL (0.7-1.3); GLUCOSE 185 mg/dL (70-105); POTASSIUM SERUM 3.4 mEq/L (3.5-5.1); SGOT 18 U/L (13-39); SGPT/ALT 38 U/L (7-52); SODIUM SERUM 134 mEq/L (136-145); TOTAL PROTEIN,SERUM 4.8 gm/dL (6.0-8.3)
[2017-11-24 06:34] LABS: BUN - UREA NITROGEN 89 mg/dL (7-25)
[2017-11-24] MEDS ORDERED: Diltiazem 5 mg/mL 5mL Vial IVP PRN (08:25)
[2017-11-24] MEDS ORDERED: Potassium Chloride Elixir 20 mEq /15 mL UDC GT ONE (08:26)
--- NOTE | 2017-11-24 08:42 | GI Progress Note ---
Subjective - Review of Systems Service Date: 11/24/17 Subjective: Responsive to name, answers simple questions Objective - Results Result Diagrams: 11/24/17 05:50 11/24/17 05:50 Recent Labs: Laboratory Last Values WBC 23.5 Th/cmm (4.8-10.8) H* D 11/24/17 05:50 RBC 3.56 Mil/cmm (3.80-5.80) L 11/24/17 05:50 Hgb 10.7 gm/dL (12-16) L 11/24/17 05:50 Hct 31.5 % (41.0-60) L 11/24/17 05:50 MCV 88.5 fl (80-99) 11/24/17 05:50 MCH 30.2 pg (27.0-31.0) 11/24/17 05:50 MCHC Differential 34.1 pg (28.0-36.0) 11/24/17 05:50 RDW 13.8 % (11.5-20.0) 11/24/17 05:50 Plt Count 146 Th/cmm (150-400) L D 11/24/17 05:50 MPV 10.2 fl 11/24/17 05:50 Neutrophils % 94.7 % (40.0-80.0) H 11/17/17 07:45 Band Neutrophils % 6 % (0-10) 11/19/17 05:30 Lymphocytes % 3.7 % (20.0-50.0) L 11/17/17 07:45 Monocytes % 1.6 % (2.0-10.0) L 11/17/17 07:45 Eosinophils % 0.0 % (0.0-5.0) 11/17/17 07:45 Basophils % 0.0 % (0.0-2.0) 11/15/17 09:01 Neutrophils (Manual) 87 % (40-80) H 11/19/17 05:30 Lymphocytes 6 % (20-50) L 11/19/17 05:30 Monocytes 1 % (2-10) L 11/19/17 05:30 Platelet Estimate SLIGHT DECREASED (NORMAL) 11/19/17 05:30 PT 12.2 SECONDS (9.5-11.5) H 11/24/17 05:50 INR 1.16 (0.5-1.4) 11/24/17 05:50 Specimen Source Arterial 11/18/17 10:29 Sample Site Right Radial 11/18/17 10:29 pH 7.48 (7.35-7.45) H 11/18/17 10:29 pCO2 29.0 mmHg (35.0-45.0) L 11/18/17 10:29 pO2 81.0 mmHg (80.0-100.0) 11/18/17 10:29 HCO3 24.1 mEq/L (20.0-26.0) 11/18/17 10:29 Base Excess -1.0 mEq/L (-3.0-3.0) 11/18/17 10:29 O2 Saturation 97.0 % (92.0-100.0) 11/18/17 10:29 Mario Test PASS 11/18/17 10:29 Vent Rate NA 11/15/17 08:47 Inspired O2 28 11/18/17 10:29 Tidal Volume NA 11/15/17 08:47 PEEP NA 11/15/17 08:47 Pressure (ins/psv/peep) NA 11/15/17 08:47 Critical Value PW 11/18/17 10:29 Sodium 134 mEq/L (136-145) L 11/24/17 05:50 Potassium 3.4 mEq/L (3.5-5.1) L 11/24/17 05:50 Chloride 102 mEq/L (98-107) 11/24/17 05:50 Carbon Dioxide 26.4 mEq/L (21.0-31.0) 11/24/17 05:50 Anion Gap 9.0 (7.0-16.0) 11/24/17 05:50 BUN 89 mg/dL (7-25) H* 11/24/17 05:50 Creatinine 1.5 mg/dL (0.7-1.3) H 11/24/17 05:50 Est GFR ( Amer) TNP 11/24/17 05:50 Est GFR (Non-Af Amer) TNP 11/24/17 05:50 BUN/Creatinine Ratio 59.3 11/24/17 05:50 Glucose 185 mg/dL (70-105) H 11/24/17 05:50 POC Glucose 266 MG/DL (70 - 105) H 11/23/17 05:30 Hemoglobin A1c % 8.3 % (4.0-6.0) H 11/15/17 09:20 Whole Bld Lactic Acid 6.37 mmol/L (0.60-1.99) H* 11/15/17 11:20 Calcium 9.3 mg/dL (8.6-10.3) 11/24/17 05:50 Magnesium 2.3 mg/dL (1.9-2.7) 11/15/17 09:20 Total Bilirubin 0.3 mg/dL (0.3-1.0) 11/24/17 05:50 AST 18 U/L (13-39) 11/24/17 05:50 ALT 38 U/L (7-52) 11/24/17 05:50 Alkaline Phosphatase 63 U/L (34-104) 11/24/17 05:50 Troponin I 0.19 ng/mL (0.01-0.05) H* 11/15/17 09:01 B-Natriuretic Peptide 229.0 pg/mL (5.0-100.0) H 11/23/17 05:50 Total Protein 4.8 gm/dL (6.0-8.3) L 11/24/17 05:50 Albumin 2.2 gm/dL (4.2-5.5) L 11/24/17 05:50 Globulin 2.6 gm/dL 11/24/17 05:50 Albumin/Globulin Ratio 0.9 (1.0-1.8) L 11/24/17 05:50 Triglycerides 201 mg/dL (<150) H 11/15/17 09:20 Cholesterol 75 mg/dL (<200) 11/15/17 09:20 LDL Cholesterol Direct 8 mg/dL (75-193) L 11/15/17 09:20 HDL Cholesterol 9 mg/dL (23-92) L 11/15/17 09:20 TSH 0.75 uIU/ml (0.34-5.60) 11/15/17 09:20 Hepatitis A IgM Ab Negative (Negative) 11/17/17 17:40 Hep Bs Antigen Negative (Negative) 11/17/17 17:40 Hep B Core IgM Ab Negative (Negative) 11/17/17 17:40 Hepatitis C Antibody <0.1 s/co ratio (0.0-0.9) 11/17/17 17:40 - Physical Exam Vitals and I&O: Vital Signs Temp 97.6 F 11/24/17 07:56 Pulse 150 11/24/17 08:03 Resp 18 11/24/17 08:03 BP 138/73 11/24/17 07:56 Pulse Ox 98 11/24/17 08:03 Intake & Output 11/23/17 11/24/17 11/24/17 18:59 06:59 18:59 Intake Total 1900 400 Output Total 775 450 Balance 1125 -50 Weight (lbs) 83.915 kg 72.665 kg Intake: Intake, IV Amount 1300 400 Cefepime 1 gm In Sodium 50 Chloride 0.9% 50 ml @ 100 mls/hr IV Q24HR [facility] Rx#: [id number] Levofloxacin 250mg/50mL 50 250 mg In Premix Fluid 1 bag @ 50 mls/hr IV Q24H [facility] Rx#:[id number] Linezolid 600mg/300mL 600 300 300 mg In 300 ml @ 200 mls/ hr IV Q12HR@0900,2100 [facility] Rx#:[id number] Sodium Chloride 0.45% 1, 1000 000 ml @ 75 mls/hr IV . [id number] [facility] Rx#:[id number] Tube Feeding 480 Albumin 120 Output: Urine 775 450 Other: # Bowel Movements 1 Active Medications: Current Medications Acetaminophen (Tylenol 650mg Supp) 650 mg RC Q4H PRN PRN Reason: Fever > 101 Stop: 01/14/18 12:49 Albuterol/Ipratropium (Duoneb Neb) 3 ml HHN Q4HRT [facility] Stop: 01/15/18 18:59 Last Admin: 11/24/17 08:01 Dose: 3 ml Amlodipine Besylate (Norvasc) 5 mg PO HS [facility] Stop: 01/14/18 20:59 Last Admin: 11/23/17 20:33 Dose: 5 mg Aspirin (Aspirin Chewable) 81 mg PO DAILY [facility] Stop: 01/15/18 08:59 Last Admin: 11/23/17 09:58 Dose: 81 mg Atorvastatin Calcium (Lipitor) 20 mg PO HS [facility] Stop: 01/14/18 22:59 Last Admin: 11/23/17 20:33 Dose: 20 mg Carvedilol (Coreg) 3.125 mg PO BID [facility] Stop: 01/14/18 16:59 Last Admin: 11/23/17 18:11 Dose: 3.125 mg Diltiazem HCl (Cardizem) 20 mg IVP Q4HR PRN PRN Reason: hr above 110 Stop: 01/23/18 08:24 Fluconazole (Diflucan) 100 mg PO DAILY [facility] Stop: 01/17/18 08:59 Last Admin: 11/23/17 09:58 Dose: 100 mg Furosemide (Lasix) 40 mg IVP X1 ONE Stop: 11/24/17 08:26 Glucagon (Glucagen) 1 mg IM PRN PRN PRN Reason: hypoglycemia Stop: 01/14/18 16:44 Diltiazem HCl 125 mg/ Dextrose 125 mls @ 10 mls/hr IV TITR [facility]; 10 MG/HR PRN Reason: Protocol Stop: 01/14/18 11:44 Last Titration: 11/16/17 03:00 Dose: 0 mg/hr, 0 mls/hr Cefepime HCl 1 gm/ Sodium (Chloride) 50 mls @ 100 mls/hr IV Q24HR [facility] Stop: 01/14/18 17:59 Last Infusion: 11/24/17 05:43 Dose: Infused Levofloxacin 250 mg/ (Miscellaneous) 50 mls @ 50 mls/hr IV Q24H [facility] Stop: 01/15/18 09:59 Last Infusion: 11/24/17 05:43 Dose: Infused Linezolid (Zyvox) 600 mg in 300 mls @ 200 mls/hr IV Q12HR@0900,2100 [facility] Stop: 01/16/18 11:59 Last Infusion: 11/24/17 02:17 Dose: Infused Sodium Chloride (Nacl 0.45%) 1,000 mls @ 75 mls/hr IV .[id number] [facility] Stop: 01/19/18 22:18 Last Admin: 11/23/17 21:49 Dose: 75 mls/hr Insulin Aspart (Novolog Insulin Sliding Scale) 0 units SUBQ ACHS [facility] PRN Reason: Protocol Stop: 01/15/18 07:29 Last Admin: 11/24/17 06:29 Dose: 3 units Insulin Detemir (Levemir Insulin) 14 units SUBQ BID [facility] PRN Reason: Protocol Stop: 01/20/18 16:59 Last Admin: 11/23/17 18:07 Dose: 14 units Methylprednisolone Sodium Succinate (Solu-Medrol) 60 mg IVP Q6HR [facility] Stop: 01/21/18 17:59 Last Admin: 11/24/17 05:12 Dose: 60 mg Mirtazapine (Remeron) 30 mg PO HS [facility] Stop: 01/14/18 22:59 Last Admin: 11/23/17 20:33 Dose: 30 mg Miscellaneous (Probiotic Screen) 1 ea MC PRN PRN PRN Reason: PROTOCOL Stop: 01/19/18 16:29 Neomycin/Polymyxin/Bacitracin (Triple Antibiotic Ointment) 1 appl TP DAILY [facility] Stop: 01/15/18 08:59 Last Admin: 11/23/17 09:59 Dose: 1 appl Olanzapine (Zyprexa) 10 mg PO TID [facility] PRN Reason: Protocol Stop: 01/14/18 20:59 Last Admin: 11/23/17 20:34 Dose: 10 mg Pantoprazole Sodium (Protonix) 40 mg PO DAILY [facility] Stop: 01/15/18 08:59 Last Admin: 11/23/17 09:59 Dose: 40 mg Potassium Chloride (Potassium Chloride Elixir) 40 meq GT X1 ONE Stop: 11/24/17 08:27 Rivaroxaban (Xarelto) 5 mg PO DAILY [facility] Stop: 01/21/18 15:59 Last Admin: 11/23/17 11:31 Dose: Not Given General: Alert, Other (lethargic) HEENT: PERRLA Neck: Supple Cardiovascular: Regular rate, Other (multiple PVC) Lungs: Other (rhonchi) Abdomen: Bowel sounds, Soft, Distended Extremities: Edema Psych/Mental Status: Other (lethargic) - Procedures Procedures: Procedures Procedure Code Date INSERT TUNNELED CV CATH 11859 11/15/17 INSERTION OF INFUSION DEV INTO R SUBCLAV VEIN, PERC APPROACH [id number] 11/15/17 Assessment/Plan - Problem List Patient Problems: All Active Problems SEVERE RESPIRATORY DISTRESS (Acute) - Assessment Assessment: # CHF # CAD # Afib on xeralto # CKD # Sepsis # Dementia vs delirium GI asked to place PEG, and given fact that pt failed swallow evaluation and not able to take adequate nutrition by mouth, this is reasonable. However, he has been taking xeralto, with last dose 11/22. We will need to wait at least 3 days given his poor renal function (xeralto is metabolized primarily by kidneys and is not dializable). PEG planned for 11/26, Wednesday Plan: - PEG placement 11/26, 3 days after holding xeralto given poor Cr clearance - pt already on antibiotics with gram positive coverage - cont NG feeds for now - cont hold xeralto
--- NOTE | 2017-11-24 09:18 | Diagnostic Imaging Report ---
CHEST X-RAY: AP view INDICATION: Shortness of breath COMPARISON: 11/21/2017 FINDINGS: The prior right subclavian dialysis catheters been removed. NG tube and left chest wall ICD are stable. Mild chronic lung changes are seen with no focal consolidation. Mild cardiomegaly is noted. IMPRESSION: Interval removal of the right-sided subclavian central venous catheter. No evidence of pneumothorax. No focal consolidation identified.
[2017-11-24] MEDS: Aspirin 81mg Chewable Tab PO SCH (09:21)
[2017-11-24] MEDS: Pantoprazole 40 mg EC Tab PO SCH (09:21)
[2017-11-24] MEDS: Linezolid 600mg/300mL 600 MG/300 ML BAG IV SCH ×2 (09:22→20:39)
[2017-11-24] MEDS: Triple Antibiotic Ointment 28gm tube TP SCH (09:35)
[2017-11-24] MEDS: Insulin Detemir 100 units/mL 10mL Vial SUBQ SCH ×2 (10:00→17:13)
--- NOTE | 2017-11-24 10:17 | General Progress Note ---
Subjective - Review of Systems Service Date: 11/24/17 Subjective: pt seen and examined. NG tube in place. dc matthew dc lasix start iv fluids Objective - Results Result Diagrams: 11/24/17 05:50 11/24/17 05:50 Recent Labs: Laboratory Last Values WBC 23.5 Th/cmm (4.8-10.8) H* D 11/24/17 05:50 RBC 3.56 Mil/cmm (3.80-5.80) L 11/24/17 05:50 Hgb 10.7 gm/dL (12-16) L 11/24/17 05:50 Hct 31.5 % (41.0-60) L 11/24/17 05:50 MCV 88.5 fl (80-99) 11/24/17 05:50 MCH 30.2 pg (27.0-31.0) 11/24/17 05:50 MCHC Differential 34.1 pg (28.0-36.0) 11/24/17 05:50 RDW 13.8 % (11.5-20.0) 11/24/17 05:50 Plt Count 146 Th/cmm (150-400) L D 11/24/17 05:50 MPV 10.2 fl 11/24/17 05:50 Neutrophils % 94.7 % (40.0-80.0) H 11/17/17 07:45 Band Neutrophils % 6 % (0-10) 11/19/17 05:30 Lymphocytes % 3.7 % (20.0-50.0) L 11/17/17 07:45 Monocytes % 1.6 % (2.0-10.0) L 11/17/17 07:45 Eosinophils % 0.0 % (0.0-5.0) 11/17/17 07:45 Basophils % 0.0 % (0.0-2.0) 11/15/17 09:01 Neutrophils (Manual) 87 % (40-80) H 11/19/17 05:30 Lymphocytes 6 % (20-50) L 11/19/17 05:30 Monocytes 1 % (2-10) L 11/19/17 05:30 Platelet Estimate SLIGHT DECREASED (NORMAL) 11/19/17 05:30 PT 12.2 SECONDS (9.5-11.5) H 11/24/17 05:50 INR 1.16 (0.5-1.4) 11/24/17 05:50 Specimen Source Arterial 11/18/17 10:29 Sample Site Right Radial 11/18/17 10:29 pH 7.48 (7.35-7.45) H 11/18/17 10:29 pCO2 29.0 mmHg (35.0-45.0) L 11/18/17 10:29 pO2 81.0 mmHg (80.0-100.0) 11/18/17 10:29 HCO3 24.1 mEq/L (20.0-26.0) 11/18/17 10:29 Base Excess -1.0 mEq/L (-3.0-3.0) 11/18/17 10:29 O2 Saturation 97.0 % (92.0-100.0) 11/18/17 10:29 Mario Test PASS 11/18/17 10:29 Vent Rate NA 11/15/17 08:47 Inspired O2 28 11/18/17 10:29 Tidal Volume NA 11/15/17 08:47 PEEP NA 11/15/17 08:47 Pressure (ins/psv/peep) NA 11/15/17 08:47 Critical Value PW 11/18/17 10:29 Sodium 134 mEq/L (136-145) L 11/24/17 05:50 Potassium 3.4 mEq/L (3.5-5.1) L 11/24/17 05:50 Chloride 102 mEq/L (98-107) 11/24/17 05:50 Carbon Dioxide 26.4 mEq/L (21.0-31.0) 11/24/17 05:50 Anion Gap 9.0 (7.0-16.0) 11/24/17 05:50 BUN 89 mg/dL (7-25) H* 11/24/17 05:50 Creatinine 1.5 mg/dL (0.7-1.3) H 11/24/17 05:50 Est GFR ( Amer) TNP 11/24/17 05:50 Est GFR (Non-Af Amer) TNP 11/24/17 05:50 BUN/Creatinine Ratio 59.3 11/24/17 05:50 Glucose 185 mg/dL (70-105) H 11/24/17 05:50 POC Glucose 266 MG/DL (70 - 105) H 11/23/17 05:30 Hemoglobin A1c % 8.3 % (4.0-6.0) H 11/15/17 09:20 Whole Bld Lactic Acid 6.37 mmol/L (0.60-1.99) H* 11/15/17 11:20 Calcium 9.3 mg/dL (8.6-10.3) 11/24/17 05:50 Magnesium 2.3 mg/dL (1.9-2.7) 11/15/17 09:20 Total Bilirubin 0.3 mg/dL (0.3-1.0) 11/24/17 05:50 AST 18 U/L (13-39) 11/24/17 05:50 ALT 38 U/L (7-52) 11/24/17 05:50 Alkaline Phosphatase 63 U/L (34-104) 11/24/17 05:50 Troponin I 0.19 ng/mL (0.01-0.05) H* 11/15/17 09:01 B-Natriuretic Peptide 229.0 pg/mL (5.0-100.0) H 11/23/17 05:50 Total Protein 4.8 gm/dL (6.0-8.3) L 11/24/17 05:50 Albumin 2.2 gm/dL (4.2-5.5) L 11/24/17 05:50 Globulin 2.6 gm/dL 11/24/17 05:50 Albumin/Globulin Ratio 0.9 (1.0-1.8) L 11/24/17 05:50 Triglycerides 201 mg/dL (<150) H 11/15/17 09:20 Cholesterol 75 mg/dL (<200) 11/15/17 09:20 LDL Cholesterol Direct 8 mg/dL (75-193) L 11/15/17 09:20 HDL Cholesterol 9 mg/dL (23-92) L 11/15/17 09:20 TSH 0.75 uIU/ml (0.34-5.60) 11/15/17 09:20 Hepatitis A IgM Ab Negative (Negative) 11/17/17 17:40 Hep Bs Antigen Negative (Negative) 11/17/17 17:40 Hep B Core IgM Ab Negative (Negative) 11/17/17 17:40 Hepatitis C Antibody <0.1 s/co ratio (0.0-0.9) 11/17/17 17:40 - Physical Exam Vitals and I&O: Vital Signs Temp 97.6 F 11/24/17 07:56 Pulse 103 11/24/17 09:22 Resp 18 11/24/17 08:03 BP 138/73 11/24/17 09:24 Pulse Ox 98 11/24/17 08:03 Intake & Output 11/23/17 11/24/17 11/24/17 18:59 06:59 18:59 Intake Total 1900 400 Output Total 775 450 Balance 1125 -50 Weight (lbs) 83.915 kg 72.665 kg Intake: Intake, IV Amount 1300 400 Cefepime 1 gm In Sodium 50 Chloride 0.9% 50 ml @ 100 mls/hr IV Q24HR [facility] Rx#: [id number] Levofloxacin 250mg/50mL 50 250 mg In Premix Fluid 1 bag @ 50 mls/hr IV Q24H [facility] Rx#:[id number] Linezolid 600mg/300mL 600 300 300 mg In 300 ml @ 200 mls/ hr IV Q12HR@0900,2100 [facility] Rx#:[id number] Sodium Chloride 0.45% 1, 1000 000 ml @ 75 mls/hr IV . [id number] [facility] Rx#:[id number] Tube Feeding 480 Albumin 120 Output: Urine 775 450 Other: # Bowel Movements 1 Active Medications: Current Medications Acetaminophen (Tylenol 650mg Supp) 650 mg RC Q4H PRN PRN Reason: Fever > 101 Stop: 01/14/18 12:49 Albuterol/Ipratropium (Duoneb Neb) 3 ml HHN Q4HRT [facility] Stop: 01/15/18 18:59 Last Admin: 11/24/17 08:01 Dose: 3 ml Amlodipine Besylate (Norvasc) 5 mg PO HS [facility] Stop: 01/14/18 20:59 Last Admin: 11/23/17 20:33 Dose: 5 mg Aspirin (Aspirin Chewable) 81 mg PO DAILY [facility] Stop: 01/15/18 08:59 Last Admin: 11/24/17 09:21 Dose: 81 mg Atorvastatin Calcium (Lipitor) 20 mg PO HS [facility] Stop: 01/14/18 22:59 Last Admin: 11/23/17 20:33 Dose: 20 mg Carvedilol (Coreg) 3.125 mg PO BID [facility] Stop: 01/14/18 16:59 Last Admin: 11/24/17 09:22 Dose: 3.125 mg Diltiazem HCl (Cardizem) 20 mg IVP Q4HR PRN PRN Reason: HR above 110 Stop: 01/23/18 08:24 Fluconazole (Diflucan) 100 mg PO DAILY [facility] Stop: 01/17/18 08:59 Last Admin: 11/24/17 09:22 Dose: 100 mg Glucagon (Glucagen) 1 mg IM PRN PRN PRN Reason: hypoglycemia Stop: 01/14/18 16:44 Diltiazem HCl 125 mg/ Dextrose 125 mls @ 10 mls/hr IV TITR [facility]; 10 MG/HR PRN Reason: Protocol Stop: 01/14/18 11:44 Last Titration: 11/16/17 03:00 Dose: 0 mg/hr, 0 mls/hr Cefepime HCl 1 gm/ Sodium (Chloride) 50 mls @ 100 mls/hr IV Q24HR [facility] Stop: 01/14/18 17:59 Last Infusion: 11/24/17 05:43 Dose: Infused Levofloxacin 250 mg/ (Miscellaneous) 50 mls @ 50 mls/hr IV Q24H [facility] Stop: 01/15/18 09:59 Last Infusion: 11/24/17 05:43 Dose: Infused Linezolid (Zyvox) 600 mg in 300 mls @ 200 mls/hr IV Q12HR@0900,2100 [facility] Stop: 01/16/18 11:59 Last Admin: 11/24/17 09:22 Dose: 200 mls/hr Sodium Chloride (Nacl 0.45%) 1,000 mls @ 75 mls/hr IV .[id number] [facility] Stop: 01/19/18 22:18 Last Admin: 11/23/17 21:49 Dose: 75 mls/hr Insulin Aspart (Novolog Insulin Sliding Scale) 0 units SUBQ ACHS [facility] PRN Reason: Protocol Stop: 01/15/18 07:29 Last Admin: 11/24/17 06:29 Dose: 3 units Insulin Detemir (Levemir Insulin) 14 units SUBQ BID [facility] PRN Reason: Protocol Stop: 01/20/18 16:59 Last Admin: 11/24/17 10:00 Dose: 14 units Methylprednisolone Sodium Succinate (Solu-Medrol) 60 mg IVP Q6HR [facility] Stop: 01/21/18 17:59 Last Admin: 11/24/17 05:12 Dose: 60 mg Mirtazapine (Remeron) 30 mg PO HS [facility] Stop: 01/14/18 22:59 Last Admin: 11/23/17 20:33 Dose: 30 mg Miscellaneous (Probiotic Screen) 1 ea MC PRN PRN PRN Reason: PROTOCOL Stop: 01/19/18 16:29 Neomycin/Polymyxin/Bacitracin (Triple Antibiotic Ointment) 1 appl TP DAILY [facility] Stop: 01/15/18 08:59 Last Admin: 11/24/17 09:35 Dose: 1 appl Olanzapine (Zyprexa) 10 mg PO TID [facility] PRN Reason: Protocol Stop: 01/14/18 20:59 Last Admin: 11/24/17 09:21 Dose: 10 mg Pantoprazole Sodium (Protonix) 40 mg PO DAILY [facility] Stop: 01/15/18 08:59 Last Admin: 11/24/17 09:21 Dose: 40 mg Rivaroxaban (Xarelto) 5 mg PO DAILY [facility] Stop: 01/21/18 15:59 Last Admin: 11/23/17 11:31 Dose: Not Given General: Alert, Other (lethargic) HEENT: PERRLA Neck: Supple Cardiovascular: Regular rate, Other (multiple PVC) Lungs: Other (rhonchi) Abdomen: Bowel sounds, Soft, Distended Extremities: Edema Psych/Mental Status: Other (lethargic) - Procedures Procedures: Procedures Procedure Code Date INSERT TUNNELED CV CATH 24517 11/15/17 INSERTION OF INFUSION DEV INTO R SUBCLAV VEIN, PERC APPROACH [id number] 11/15/17 Assessment/Plan - Problem List Patient Problems: All Active Problems SEVERE RESPIRATORY DISTRESS (Acute) - Assessment Assessment: 1.PNEUMONIA. 2.COPD. 3.AFIB. 4.DEMENTIA. 5.PENNY. secondary to ATN - Plan Plan: recheck labs in am renal function has recovered will remove Matthew catheter plan for placement of PEG then plan for transfer to LTAC stopped lasix started ivf Nutritional Asmnt/Malnutr-PDOC - Dietary Evaluation Malnutrition Findings (Please click <Entered> for more info): Nutritional Asmnt/Malnutrition Start: 11/16/17 14: 06 Text: Status: Complete Freq: Document 11/16/17 14:06 LISA (Rec: 11/16/17 14:20 [email or web address]) Nutritional Asmnt/Malnutrition Patient General Information Nutritional Screening High Risk Consult Diagnosis actute renal failure, sepsis, PNA Pertinent Medical Hx/Surgical Hx hyperlipidemia, CHF, HTN, COPD , ICD device Subjective Information Consult received for admit blood sugar 263. Pt seen sleeping in bed at the time of visit. Spoke with RN, pt refused breakfast this morning possible d/t weakness and being sick. Current Diet Order/ Nutrition Support low chlesterol 300gm Pertinent Medications glucagen, novolog, remeron, nacl 0.9% Pertinent Labs 11/15 Na 137, K 4.6, Cl 110, BUN 105, Cr 2.9, GLucose 295, POC 246-370 since admit, a1c 8.3, calcium 9.2 Nutritional Hx/Data Height 1.85 m Height (Calculated Centimeters) 185.4 Current Weight (lbs) 62.55 kg Weight (Calculated Kilograms) 62.6 Weight (Calculated Grams) 26876.4 [place] Body Weight 184 % [place] Body Weight 75 Body Mass Index (BMI) 18.1 Weight Status Underweight GI Symptoms GI Symptoms None Last BM no record Skin Integrity/Comment: pressure area to heels Current %PO Negligible < 25% Estimated Nutritional Goals Calories/Kcals/Kg 25-30 Kcals Calculated 6867-3852 based on IBW considering underweight and sepsis Protein g/k-1.2 Protein Calculated 84-100 Fluid: ml 2089-2508ml (1ml/kcal) Nutritional Problem 2. Problem Problem altered nutrition related lab values Etiology acute renal failure, hx of DM Signs/Symptoms: BUN 105, Cr 2.9, GLucose 295, POC 246-370, a1c 8.3, 1. Problem Problem increased nutrition needs ( calorie and protein) Etiology increased metabolic demand for healing and underweight Signs/Symptoms: dx of sepsis and PNA, BMI 18.2 Malnutrition Alert Protein-Calorie Malnutrition N/A Is there a minimum of two criteria No selected? Query Text:Check all the applicable criteria. A minimum of two criteria are recommended for diagnosis of either severe or non-severe malnutrition. Intervention/Recommendation Comments 1. Recommend modify diet to CCHO, low cholesteral diet for optimal glycemic control. RN made aware, will talk to MD 2. Monitor PO intake, wt, labs and skin integrity 3. F/U as high risk in 2-3 days, 11/18-11/19 Expected Outcomes/Goals Expected Outcomes/Goals 1. PO intake to meet at least 75% of nutritional needs. 2. Wt stability, skin to remain intact, labs to improve
[2017-11-24] MEDS: Levofloxacin 250mg/50mL 250 MG in Premix Fluid 1 BAG IV SCH (13:02)
--- NOTE | 2017-11-24 13:20 | Diagnostic Imaging Report ---
Bilateral lower extremity DVT study HISTORY: Pain COMPARISON: None Technique: Longitudinal and transverse sonographic images of the bilateral lower extremity veins were obtained with doppler analysis. FINDINGS: There is patency of the bilateral jugular, subclavian, axillary, brachial, basilic and cephalic veins. Compressibility phasicity, and augmentation is demonstrated with no evidence of DVT formation. Atherosclerotic vascular disease is noted. IMPRESSION: No evidence of DVT formation within the bilateral upper extremity venous system. Atherosclerotic vascular disease.
[2017-11-24] MEDS: Cefepime 1 GM in Sodium Chloride 0.9% 50 ML IV SCH (17:11)
[2017-11-24] MEDS: methylPREDNISolone SS 40 mg Vial IVP SCH (17:12)
--- NOTE | 2017-11-24 21:11 | Internal Medicine Prog Note ---
Internal Medicine Subjective - Subjective Service Date: 11/24/17 Patient seen and examined:: without staff Patient is:: awake, non-verbal, in bed, confused, congested Per staff patient has:: no adverse event (HE HAS POOR APETITE) Internal Medicine Objective - Results Result Diagrams: 11/24/17 05:50 11/24/17 05:50 Recent Labs: Laboratory Last Values WBC 23.5 Th/cmm (4.8-10.8) H* D 11/24/17 05:50 RBC 3.56 Mil/cmm (3.80-5.80) L 11/24/17 05:50 Hgb 10.7 gm/dL (12-16) L 11/24/17 05:50 Hct 31.5 % (41.0-60) L 11/24/17 05:50 MCV 88.5 fl (80-99) 11/24/17 05:50 MCH 30.2 pg (27.0-31.0) 11/24/17 05:50 MCHC Differential 34.1 pg (28.0-36.0) 11/24/17 05:50 RDW 13.8 % (11.5-20.0) 11/24/17 05:50 Plt Count 146 Th/cmm (150-400) L D 11/24/17 05:50 MPV 10.2 fl 11/24/17 05:50 Neutrophils % 94.7 % (40.0-80.0) H 11/17/17 07:45 Band Neutrophils % 6 % (0-10) 11/19/17 05:30 Lymphocytes % 3.7 % (20.0-50.0) L 11/17/17 07:45 Monocytes % 1.6 % (2.0-10.0) L 11/17/17 07:45 Eosinophils % 0.0 % (0.0-5.0) 11/17/17 07:45 Basophils % 0.0 % (0.0-2.0) 11/15/17 09:01 Neutrophils (Manual) 87 % (40-80) H 11/19/17 05:30 Lymphocytes 6 % (20-50) L 11/19/17 05:30 Monocytes 1 % (2-10) L 11/19/17 05:30 Platelet Estimate SLIGHT DECREASED (NORMAL) 11/19/17 05:30 PT 12.2 SECONDS (9.5-11.5) H 11/24/17 05:50 INR 1.16 (0.5-1.4) 11/24/17 05:50 Specimen Source Arterial 11/18/17 10:29 Sample Site Right Radial 11/18/17 10:29 pH 7.48 (7.35-7.45) H 11/18/17 10:29 pCO2 29.0 mmHg (35.0-45.0) L 11/18/17 10:29 pO2 81.0 mmHg (80.0-100.0) 11/18/17 10:29 HCO3 24.1 mEq/L (20.0-26.0) 11/18/17 10:29 Base Excess -1.0 mEq/L (-3.0-3.0) 11/18/17 10:29 O2 Saturation 97.0 % (92.0-100.0) 11/18/17 10:29 Mario Test PASS 11/18/17 10:29 Vent Rate NA 11/15/17 08:47 Inspired O2 28 11/18/17 10:29 Tidal Volume NA 11/15/17 08:47 PEEP NA 11/15/17 08:47 Pressure (ins/psv/peep) NA 11/15/17 08:47 Critical Value PW 11/18/17 10:29 Sodium 134 mEq/L (136-145) L 11/24/17 05:50 Potassium 3.4 mEq/L (3.5-5.1) L 11/24/17 05:50 Chloride 102 mEq/L (98-107) 11/24/17 05:50 Carbon Dioxide 26.4 mEq/L (21.0-31.0) 11/24/17 05:50 Anion Gap 9.0 (7.0-16.0) 11/24/17 05:50 BUN 89 mg/dL (7-25) H* 11/24/17 05:50 Creatinine 1.5 mg/dL (0.7-1.3) H 11/24/17 05:50 Est GFR ( Amer) TNP 11/24/17 05:50 Est GFR (Non-Af Amer) TNP 11/24/17 05:50 BUN/Creatinine Ratio 59.3 11/24/17 05:50 Glucose 185 mg/dL (70-105) H 11/24/17 05:50 POC Glucose 226 MG/DL (70 - 105) H 11/24/17 20:37 Hemoglobin A1c % 8.3 % (4.0-6.0) H 11/15/17 09:20 Whole Bld Lactic Acid 6.37 mmol/L (0.60-1.99) H* 11/15/17 11:20 Calcium 9.3 mg/dL (8.6-10.3) 11/24/17 05:50 Magnesium 2.3 mg/dL (1.9-2.7) 11/15/17 09:20 Total Bilirubin 0.3 mg/dL (0.3-1.0) 11/24/17 05:50 AST 18 U/L (13-39) 11/24/17 05:50 ALT 38 U/L (7-52) 11/24/17 05:50 Alkaline Phosphatase 63 U/L (34-104) 11/24/17 05:50 Troponin I 0.19 ng/mL (0.01-0.05) H* 11/15/17 09:01 B-Natriuretic Peptide 229.0 pg/mL (5.0-100.0) H 11/23/17 05:50 Total Protein 4.8 gm/dL (6.0-8.3) L 11/24/17 05:50 Albumin 2.2 gm/dL (4.2-5.5) L 11/24/17 05:50 Globulin 2.6 gm/dL 11/24/17 05:50 Albumin/Globulin Ratio 0.9 (1.0-1.8) L 11/24/17 05:50 Triglycerides 201 mg/dL (<150) H 11/15/17 09:20 Cholesterol 75 mg/dL (<200) 11/15/17 09:20 LDL Cholesterol Direct 8 mg/dL (75-193) L 11/15/17 09:20 HDL Cholesterol 9 mg/dL (23-92) L 11/15/17 09:20 TSH 0.75 uIU/ml (0.34-5.60) 11/15/17 09:20 Hepatitis A IgM Ab Negative (Negative) 11/17/17 17:40 Hep Bs Antigen Negative (Negative) 11/17/17 17:40 Hep B Core IgM Ab Negative (Negative) 11/17/17 17:40 Hepatitis C Antibody <0.1 s/co ratio (0.0-0.9) 11/17/17 17:40 - Physical Exam Vitals and I&O: Vital Signs Temp 97.3 F 11/24/17 20:00 Pulse 67 11/24/17 20:00 Resp 18 11/24/17 20:00 BP 123/88 11/24/17 20:00 Pulse Ox 99 11/24/17 20:00 Intake & Output 11/24/17 11/24/17 11/25/17 06:59 18:59 06:59 Intake Total 400 1880 Output Total 450 1350 Balance -50 530 Weight (lbs) 72.665 kg 72.575 kg Intake: Intake, IV Amount 400 1400 Cefepime 1 gm In Sodium 50 50 Chloride 0.9% 50 ml @ 100 mls/hr IV Q24HR [facility] Rx#: [id number] Levofloxacin 250mg/50mL 50 50 250 mg In Premix Fluid 1 bag @ 50 mls/hr IV Q24H [facility] Rx#:[id number] Linezolid 600mg/300mL 600 300 300 mg In 300 ml @ 200 mls/ hr IV Q12HR@0900,2100 [facility] Rx#:[id number] Sodium Chloride 0.45% 1, 1000 000 ml @ 75 mls/hr IV . [id number] [facility] Rx#:[id number] Tube Feeding 480 Output: Urine 450 1350 Other: # Bowel Movements 0 Active Medications: Current Medications Acetaminophen (Tylenol 650mg Supp) 650 mg RC Q4H PRN PRN Reason: Fever > 101 Stop: 01/14/18 12:49 Albuterol/Ipratropium (Duoneb Neb) 3 ml HHN Q4HRT [facility] Stop: 01/15/18 18:59 Last Admin: 11/24/17 18:44 Dose: 3 ml Amlodipine Besylate (Norvasc) 5 mg PO HS [facility] Stop: 01/14/18 20:59 Last Admin: 11/23/17 20:33 Dose: 5 mg Aspirin (Aspirin Chewable) 81 mg PO DAILY [facility] Stop: 01/15/18 08:59 Last Admin: 11/24/17 09:21 Dose: 81 mg Atorvastatin Calcium (Lipitor) 20 mg PO HS [facility] Stop: 01/14/18 22:59 Last Admin: 11/23/17 20:33 Dose: 20 mg Carvedilol (Coreg) 3.125 mg PO BID [facility] Stop: 01/14/18 16:59 Last Admin: 11/24/17 17:13 Dose: 3.125 mg Diltiazem HCl (Cardizem) 20 mg IVP Q4HR PRN PRN Reason: HR above 110 Stop: 01/23/18 08:24 Fluconazole (Diflucan) 100 mg PO DAILY [facility] Stop: 01/17/18 08:59 Last Admin: 11/24/17 09:22 Dose: 100 mg Glucagon (Glucagen) 1 mg IM PRN PRN PRN Reason: hypoglycemia Stop: 01/14/18 16:44 Diltiazem HCl 125 mg/ Dextrose 125 mls @ 10 mls/hr IV TITR [facility]; 10 MG/HR PRN Reason: Protocol Stop: 01/14/18 11:44 Last Titration: 11/16/17 03:00 Dose: 0 mg/hr, 0 mls/hr Cefepime HCl 1 gm/ Sodium (Chloride) 50 mls @ 100 mls/hr IV Q24HR [facility] Stop: 01/14/18 17:59 Last Infusion: 11/24/17 17:41 Dose: Infused Levofloxacin 250 mg/ (Miscellaneous) 50 mls @ 50 mls/hr IV Q24H [facility] Stop: 01/15/18 09:59 Last Infusion: 11/24/17 14:02 Dose: Infused Linezolid (Zyvox) 600 mg in 300 mls @ 200 mls/hr IV Q12HR@0900,2100 [facility] Stop: 01/16/18 11:59 Last Admin: 11/24/17 20:39 Dose: 200 mls/hr Sodium Chloride (Nacl 0.45%) 1,000 mls @ 75 mls/hr IV .[id number] [facility] Stop: 01/19/18 22:18 Last Infusion: 11/24/17 18:27 Dose: Infused Insulin Aspart (Novolog Insulin Sliding Scale) 0 units SUBQ ACHS [facility] PRN Reason: Protocol Stop: 01/15/18 07:29 Last Admin: 11/24/17 17:14 Dose: 5 units Insulin Detemir (Levemir Insulin) 14 units SUBQ BID [facility] PRN Reason: Protocol Stop: 01/20/18 16:59 Last Admin: 11/24/17 17:13 Dose: 14 units Methylprednisolone Sodium Succinate (Solu-Medrol) 20 mg IVP Q12H [facility] Stop: 01/23/18 16:29 Last Admin: 11/24/17 17:12 Dose: 20 mg Mirtazapine (Remeron) 30 mg PO HS [facility] Stop: 01/14/18 22:59 Last Admin: 11/23/17 20:33 Dose: 30 mg Miscellaneous (Probiotic Screen) 1 ea MC PRN PRN PRN Reason: PROTOCOL Stop: 01/19/18 16:29 Neomycin/Polymyxin/Bacitracin (Triple Antibiotic Ointment) 1 appl TP DAILY [facility] Stop: 01/15/18 08:59 Last Admin: 11/24/17 09:35 Dose: 1 appl Olanzapine (Zyprexa) 10 mg PO TID [facility] PRN Reason: Protocol Stop: 01/14/18 20:59 Last Admin: 11/24/17 09:21 Dose: 10 mg Pantoprazole Sodium (Protonix) 40 mg PO DAILY [facility] Stop: 01/15/18 08:59 Last Admin: 11/24/17 09:21 Dose: 40 mg Rivaroxaban (Xarelto) 5 mg PO DAILY [facility] Stop: 01/21/18 15:59 Last Admin: 11/24/17 10:25 Dose: Not Given General: weak, demented HEENT: PERRLA, EOMI, anicteric sclerae, throat clear Neck: Supple, No JVD, No thyromegaly, No LAD Lungs: congested, ronchi Cardiovascular: Normal S2, other (IRRIGULAR) Extremities: clear Neurological: no change - Procedures Procedures: Procedures Procedure Code Date INSERT TUNNELED CV CATH 71516 11/15/17 INSERTION OF INFUSION DEV INTO R SUBCLAV VEIN, PERC APPROACH 58J087A 11/15/17 Internal Medicine Assmt/Plan - Assessment Assessment: 1.PNEUMONIA. 2.COPD. 3.PAFIB 4.DEMENTIA. 5.PENNY. 6.DEHYDRATION. 7.DM - Plan Plan: CONTINUE ON CURRENT MEDICATION AND DIET. Nutritional Asmnt/Malnutr-PDOC - Dietary Evaluation Malnutrition Findings (Please click <Entered> for more info): Nutritional Asmnt/Malnutrition Start: 11/16/17 14: 06 Text: Status: Complete Freq: Document 11/16/17 14:06 LCCOSMOG (Rec: 11/16/17 14:20 [email or web address] [email or web address]) Nutritional Asmnt/Malnutrition Patient General Information Nutritional Screening High Risk Consult Diagnosis actute renal failure, sepsis, PNA Pertinent Medical Hx/Surgical Hx hyperlipidemia, CHF, HTN, COPD , ICD device Subjective Information Consult received for admit blood sugar 263. Pt seen sleeping in bed at the time of visit. Spoke with RN, pt refused breakfast this morning possible d/t weakness and being sick. Current Diet Order/ Nutrition Support low chlesterol 300gm Pertinent Medications glucagen, novolog, remeron, nacl 0.9% Pertinent Labs 11/15 Na 137, K 4.6, Cl 110, BUN 105, Cr 2.9, GLucose 295, POC 246-370 since admit, a1c 8.3, calcium 9.2 Nutritional Hx/Data Height 1.85 m Height (Calculated Centimeters) 185.4 Current Weight (lbs) 62.55 kg Weight (Calculated Kilograms) 62.6 Weight (Calculated Grams) 40788.4 [place] Body Weight 184 % [place] Body Weight 75 Body Mass Index (BMI) 18.1 Weight Status Underweight GI Symptoms GI Symptoms None Last BM no record Skin Integrity/Comment: pressure area to heels Current %PO Negligible < 25% Estimated Nutritional Goals Calories/Kcals/Kg 25-30 Kcals Calculated 3909-6418 based on IBW considering underweight and sepsis Protein g/k-1.2 Protein Calculated 84-100 Fluid: ml 2089-250ml (1ml/kcal) Nutritional Problem 2. Problem Problem altered nutrition related lab values Etiology acute renal failure, hx of DM Signs/Symptoms: BUN 105, Cr 2.9, GLucose 295, POC 246-370, a1c 8.3, 1. Problem Problem increased nutrition needs ( calorie and protein) Etiology increased metabolic demand for healing and underweight Signs/Symptoms: dx of sepsis and PNA, BMI 18.2 Malnutrition Alert Protein-Calorie Malnutrition N/A Is there a minimum of two criteria No selected? Query Text:Check all the applicable criteria. A minimum of two criteria are recommended for diagnosis of either severe or non-severe malnutrition. Intervention/Recommendation Comments 1. Recommend modify diet to CCHO, low cholesteral diet for optimal glycemic control. RN made aware, will talk to MD 2. Monitor PO intake, wt, labs and skin integrity 3. F/U as high risk in 2-3 days, 11/18-11/19 Expected Outcomes/Goals Expected Outcomes/Goals 1. PO intake to meet at least 75% of nutritional needs. 2. Wt stability, skin to remain intact, labs to improve
[2017-11-24] MEDS: Atorvastatin Calcium 10 MG TAB PO SCH (21:15)
[2017-11-25] MEDS: Albuterol/Ipratropium Neb 3 ML AERS HHN SCH ×6 (02:45→22:40)
[2017-11-25] MEDS: methylPREDNISolone SS 40 mg Vial IVP SCH ×2 (04:16→09:19)
[2017-11-25] MEDS: INSULIN ASPART SLIDING SCALE 100 UNITS/ML UNIT SUBQ SCH ×4 (06:56→21:06)
[2017-11-25] MEDS: Sodium Chloride 0.45% 1,000 ML IV SCH (07:18)
[2017-11-25 07:41] LABS: ANION GAP 10.9 (7.0-16.0); CALCIUM SERUM 9.1 mg/dL (8.6-10.3); CARBON DIOXIDE 26.6 mEq/L (21.0-31.0); CHLORIDE 103 mEq/L (98-107); CREATININE - SERUM 1.6 mg/dL (0.7-1.3); GLUCOSE 235 mg/dL (70-105); POTASSIUM SERUM 3.5 mEq/L (3.5-5.1); SODIUM SERUM 137 mEq/L (136-145)
[2017-11-25 07:53] LABS: INR 1.17 (0.5-1.4); PROTHROMBIN TIME (TEST) 12.3 SECONDS (9.5-11.5)
[2017-11-25 07:54] LABS: BUN - UREA NITROGEN 99 mg/dL (7-25)
[2017-11-25] MEDS: Insulin Detemir 100 units/mL 10mL Vial SUBQ SCH ×2 (09:17→17:11)
[2017-11-25] MEDS: Aspirin 81mg Chewable Tab PO SCH (09:18)
[2017-11-25] MEDS: Pantoprazole 40 mg EC Tab PO SCH (09:19)
[2017-11-25] MEDS: Linezolid 600mg/300mL 600 MG/300 ML BAG IV SCH ×2 (09:19→20:45)
[2017-11-25] MEDS: Triple Antibiotic Ointment 28gm tube TP SCH (09:34)
--- NOTE | 2017-11-25 10:07 | GI Progress Note ---
Subjective - Review of Systems Service Date: 11/25/17 Subjective: No events Objective - Results Result Diagrams: 11/24/17 05:50 11/25/17 06:50 Recent Labs: Laboratory Last Values WBC 23.5 Th/cmm (4.8-10.8) H* D 11/24/17 05:50 RBC 3.56 Mil/cmm (3.80-5.80) L 11/24/17 05:50 Hgb 10.7 gm/dL (12-16) L 11/24/17 05:50 Hct 31.5 % (41.0-60) L 11/24/17 05:50 MCV 88.5 fl (80-99) 11/24/17 05:50 MCH 30.2 pg (27.0-31.0) 11/24/17 05:50 MCHC Differential 34.1 pg (28.0-36.0) 11/24/17 05:50 RDW 13.8 % (11.5-20.0) 11/24/17 05:50 Plt Count 146 Th/cmm (150-400) L D 11/24/17 05:50 MPV 10.2 fl 11/24/17 05:50 Neutrophils % 94.7 % (40.0-80.0) H 11/17/17 07:45 Band Neutrophils % 6 % (0-10) 11/19/17 05:30 Lymphocytes % 3.7 % (20.0-50.0) L 11/17/17 07:45 Monocytes % 1.6 % (2.0-10.0) L 11/17/17 07:45 Eosinophils % 0.0 % (0.0-5.0) 11/17/17 07:45 Basophils % 0.0 % (0.0-2.0) 11/15/17 09:01 Neutrophils (Manual) 87 % (40-80) H 11/19/17 05:30 Lymphocytes 6 % (20-50) L 11/19/17 05:30 Monocytes 1 % (2-10) L 11/19/17 05:30 Platelet Estimate SLIGHT DECREASED (NORMAL) 11/19/17 05:30 PT 12.3 SECONDS (9.5-11.5) H 11/25/17 06:50 INR 1.17 (0.5-1.4) 11/25/17 06:50 Specimen Source Arterial 11/18/17 10:29 Sample Site Right Radial 11/18/17 10:29 pH 7.48 (7.35-7.45) H 11/18/17 10:29 pCO2 29.0 mmHg (35.0-45.0) L 11/18/17 10:29 pO2 81.0 mmHg (80.0-100.0) 11/18/17 10:29 HCO3 24.1 mEq/L (20.0-26.0) 11/18/17 10:29 Base Excess -1.0 mEq/L (-3.0-3.0) 11/18/17 10:29 O2 Saturation 97.0 % (92.0-100.0) 11/18/17 10:29 Mario Test PASS 11/18/17 10:29 Vent Rate NA 11/15/17 08:47 Inspired O2 28 11/18/17 10:29 Tidal Volume NA 11/15/17 08:47 PEEP NA 11/15/17 08:47 Pressure (ins/psv/peep) NA 11/15/17 08:47 Critical Value PW 11/18/17 10:29 Sodium 137 mEq/L (136-145) 11/25/17 06:50 Potassium 3.5 mEq/L (3.5-5.1) 11/25/17 06:50 Chloride 103 mEq/L (98-107) 11/25/17 06:50 Carbon Dioxide 26.6 mEq/L (21.0-31.0) 11/25/17 06:50 Anion Gap 10.9 (7.0-16.0) 11/25/17 06:50 BUN 99 mg/dL (7-25) H* 11/25/17 06:50 Creatinine 1.6 mg/dL (0.7-1.3) H 11/25/17 06:50 Est GFR ( Amer) TNP 11/25/17 06:50 Est GFR (Non-Af Amer) TNP 11/25/17 06:50 BUN/Creatinine Ratio 61.9 11/25/17 06:50 Glucose 235 mg/dL (70-105) H 11/25/17 06:50 POC Glucose 193 MG/DL (70 - 105) H 11/25/17 09:05 Hemoglobin A1c % 8.3 % (4.0-6.0) H 11/15/17 09:20 Whole Bld Lactic Acid 6.37 mmol/L (0.60-1.99) H* 11/15/17 11:20 Calcium 9.1 mg/dL (8.6-10.3) 11/25/17 06:50 Magnesium 2.3 mg/dL (1.9-2.7) 11/15/17 09:20 Total Bilirubin 0.3 mg/dL (0.3-1.0) 11/24/17 05:50 AST 18 U/L (13-39) 11/24/17 05:50 ALT 38 U/L (7-52) 11/24/17 05:50 Alkaline Phosphatase 63 U/L (34-104) 11/24/17 05:50 Troponin I 0.19 ng/mL (0.01-0.05) H* 11/15/17 09:01 B-Natriuretic Peptide 159.0 pg/mL (5.0-100.0) H 11/25/17 06:50 Total Protein 4.8 gm/dL (6.0-8.3) L 11/24/17 05:50 Albumin 2.2 gm/dL (4.2-5.5) L 11/24/17 05:50 Globulin 2.6 gm/dL 11/24/17 05:50 Albumin/Globulin Ratio 0.9 (1.0-1.8) L 11/24/17 05:50 Triglycerides 201 mg/dL (<150) H 11/15/17 09:20 Cholesterol 75 mg/dL (<200) 11/15/17 09:20 LDL Cholesterol Direct 8 mg/dL (75-193) L 11/15/17 09:20 HDL Cholesterol 9 mg/dL (23-92) L 11/15/17 09:20 TSH 0.75 uIU/ml (0.34-5.60) 11/15/17 09:20 Hepatitis A IgM Ab Negative (Negative) 11/17/17 17:40 Hep Bs Antigen Negative (Negative) 11/17/17 17:40 Hep B Core IgM Ab Negative (Negative) 11/17/17 17:40 Hepatitis C Antibody <0.1 s/co ratio (0.0-0.9) 11/17/17 17:40 - Physical Exam Vitals and I&O: Vital Signs Temp 96.6 F 11/25/17 07:47 Pulse 89 11/25/17 09:18 Resp 16 11/25/17 09:41 BP 132/78 11/25/17 09:18 Pulse Ox 16 11/25/17 07:47 Intake & Output 11/24/17 11/25/17 11/25/17 18:59 06:59 18:59 Intake Total 1880 850 Output Total 1350 1000 Balance 530 -150 Weight (lbs) 72.575 kg 74.049 kg Intake: Intake, IV Amount 1400 300 Cefepime 1 gm In Sodium 50 Chloride 0.9% 50 ml @ 100 mls/hr IV Q24HR [facility] Rx#: [id number] Levofloxacin 250mg/50mL 50 250 mg In Premix Fluid 1 bag @ 50 mls/hr IV Q24H [facility] Rx#:[id number] Linezolid 600mg/300mL 600 300 300 mg In 300 ml @ 200 mls/ hr IV Q12HR@0900,2100 [facility] Rx#:[id number] Sodium Chloride 0.45% 1, 1000 000 ml @ 75 mls/hr IV . [id number] [facility] Rx#:[id number] Tube Feeding 480 450 Other 100 Output: Urine 1350 1000 Other: # Bowel Movements 0 0 Active Medications: Current Medications Acetaminophen (Tylenol 650mg Supp) 650 mg RC Q4H PRN PRN Reason: Fever > 101 Stop: 01/14/18 12:49 Albuterol/Ipratropium (Duoneb Neb) 3 ml HHN Q4HRT [facility] Stop: 01/15/18 18:59 Last Admin: 11/25/17 07:44 Dose: 3 ml Amlodipine Besylate (Norvasc) 5 mg PO HS [facility] Stop: 01/14/18 20:59 Last Admin: 11/24/17 21:15 Dose: 5 mg Aspirin (Aspirin Chewable) 81 mg PO DAILY [facility] Stop: 01/15/18 08:59 Last Admin: 11/25/17 09:18 Dose: 81 mg Atorvastatin Calcium (Lipitor) 20 mg PO HS [facility] Stop: 01/14/18 22:59 Last Admin: 11/24/17 21:15 Dose: 20 mg Carvedilol (Coreg) 3.125 mg PO BID [facility] Stop: 01/14/18 16:59 Last Admin: 11/25/17 09:18 Dose: 3.125 mg Diltiazem HCl (Cardizem) 20 mg IVP Q4HR PRN PRN Reason: HR above 110 Stop: 01/23/18 08:24 Fluconazole (Diflucan) 100 mg PO DAILY [facility] Stop: 01/17/18 08:59 Last Admin: 11/25/17 09:18 Dose: 100 mg Glucagon (Glucagen) 1 mg IM PRN PRN PRN Reason: hypoglycemia Stop: 01/14/18 16:44 Diltiazem HCl 125 mg/ Dextrose 125 mls @ 10 mls/hr IV TITR [facility]; 10 MG/HR PRN Reason: Protocol Stop: 01/14/18 11:44 Last Titration: 11/16/17 03:00 Dose: 0 mg/hr, 0 mls/hr Cefepime HCl 1 gm/ Sodium (Chloride) 50 mls @ 100 mls/hr IV Q24HR [facility] Stop: 01/14/18 17:59 Last Infusion: 11/24/17 17:41 Dose: Infused Levofloxacin 250 mg/ (Miscellaneous) 50 mls @ 50 mls/hr IV Q24H [facility] Stop: 01/15/18 09:59 Last Infusion: 11/24/17 14:02 Dose: Infused Linezolid (Zyvox) 600 mg in 300 mls @ 200 mls/hr IV Q12HR@0900,2100 [facility] Stop: 01/16/18 11:59 Last Admin: 11/25/17 09:19 Dose: 200 mls/hr Sodium Chloride (Nacl 0.45%) 1,000 mls @ 75 mls/hr IV .[id number] [facility] Stop: 01/19/18 22:18 Last Admin: 11/25/17 07:18 Dose: 25 mls/hr Insulin Aspart (Novolog Insulin Sliding Scale) 0 units SUBQ ACHS [facility] PRN Reason: Protocol Stop: 01/15/18 07:29 Last Admin: 11/25/17 06:56 Dose: 3 units Insulin Detemir (Levemir Insulin) 14 units SUBQ BID [facility] PRN Reason: Protocol Stop: 01/20/18 16:59 Last Admin: 11/25/17 09:17 Dose: 14 units Methylprednisolone Sodium Succinate (Solu-Medrol) 20 mg IVP DAILY [facility] Stop: 01/24/18 08:59 Last Admin: 11/25/17 09:19 Dose: 20 mg Mirtazapine (Remeron) 30 mg PO HS [facility] Stop: 01/14/18 22:59 Last Admin: 11/24/17 21:14 Dose: 30 mg Miscellaneous (Probiotic Screen) 1 ea MC PRN PRN PRN Reason: PROTOCOL Stop: 01/19/18 16:29 Neomycin/Polymyxin/Bacitracin (Triple Antibiotic Ointment) 1 appl TP DAILY [facility] Stop: 01/15/18 08:59 Last Admin: 11/25/17 09:34 Dose: 1 appl Olanzapine (Zyprexa) 10 mg PO TID [facility] PRN Reason: Protocol Stop: 01/14/18 20:59 Last Admin: 11/25/17 09:18 Dose: 10 mg Pantoprazole Sodium (Protonix) 40 mg PO DAILY [facility] Stop: 01/15/18 08:59 Last Admin: 11/25/17 09:19 Dose: 40 mg Rivaroxaban (Xarelto) 5 mg PO DAILY [facility] Stop: 01/21/18 15:59 Last Admin: 11/25/17 09:34 Dose: Not Given General: Alert, Other (lethargic) HEENT: PERRLA Neck: Supple Cardiovascular: Regular rate, Other (multiple PVC) Lungs: Other (rhonchi) Abdomen: Bowel sounds, Soft, Distended Extremities: Edema Psych/Mental Status: Other (lethargic) - Procedures Procedures: Procedures Procedure Code Date INSERT TUNNELED CV CATH 75013 11/15/17 INSERTION OF INFUSION DEV INTO R SUBCLAV VEIN, PERC APPROACH [id number] 11/15/17 Assessment/Plan - Problem List Patient Problems: All Active Problems SEVERE RESPIRATORY DISTRESS (Acute) - Assessment Assessment: # CHF # CAD # Afib on xeralto # CKD # Sepsis # Dementia vs delirium GI asked to place PEG, and given fact that pt failed swallow evaluation and not able to take adequate nutrition by mouth, this is reasonable. However, he has been taking xeralto, with last dose 11/22. We will need to wait at least 3 days given his poor renal function (xeralto is metabolized primarily by kidneys and is not dializable). PEG planned for 11/26, Wednesday Plan: - PEG planned for tomorrow morning - pt already on antibiotics with gram positive coverage - cont NG feeds for now - cont hold xeralto
--- NOTE | 2017-11-25 11:50 | General Progress Note ---
Subjective - Review of Systems Service Date: 11/25/17 Subjective: Patient seen and examined. Patient is very lethargic and can not give any meaningful information. NG tube in place. Tube feeding is on. Patient had an episode of acute renal failure and require brief hemodialysis support. His renal function has now improved. Matthew catheter has been removed. Patient has his NG tube in place. Awaiting placement of PEG in am. Objective - Results Result Diagrams: 11/24/17 05:50 11/25/17 06:50 Recent Labs: Laboratory Last Values WBC 23.5 Th/cmm (4.8-10.8) H* D 11/24/17 05:50 RBC 3.56 Mil/cmm (3.80-5.80) L 11/24/17 05:50 Hgb 10.7 gm/dL (12-16) L 11/24/17 05:50 Hct 31.5 % (41.0-60) L 11/24/17 05:50 MCV 88.5 fl (80-99) 11/24/17 05:50 MCH 30.2 pg (27.0-31.0) 11/24/17 05:50 MCHC Differential 34.1 pg (28.0-36.0) 11/24/17 05:50 RDW 13.8 % (11.5-20.0) 11/24/17 05:50 Plt Count 146 Th/cmm (150-400) L D 11/24/17 05:50 MPV 10.2 fl 11/24/17 05:50 Neutrophils % 94.7 % (40.0-80.0) H 11/17/17 07:45 Band Neutrophils % 6 % (0-10) 11/19/17 05:30 Lymphocytes % 3.7 % (20.0-50.0) L 11/17/17 07:45 Monocytes % 1.6 % (2.0-10.0) L 11/17/17 07:45 Eosinophils % 0.0 % (0.0-5.0) 11/17/17 07:45 Basophils % 0.0 % (0.0-2.0) 11/15/17 09:01 Neutrophils (Manual) 87 % (40-80) H 11/19/17 05:30 Lymphocytes 6 % (20-50) L 11/19/17 05:30 Monocytes 1 % (2-10) L 11/19/17 05:30 Platelet Estimate SLIGHT DECREASED (NORMAL) 11/19/17 05:30 PT 12.3 SECONDS (9.5-11.5) H 11/25/17 06:50 INR 1.17 (0.5-1.4) 11/25/17 06:50 Specimen Source Arterial 11/18/17 10:29 Sample Site Right Radial 11/18/17 10:29 pH 7.48 (7.35-7.45) H 11/18/17 10:29 pCO2 29.0 mmHg (35.0-45.0) L 11/18/17 10:29 pO2 81.0 mmHg (80.0-100.0) 11/18/17 10:29 HCO3 24.1 mEq/L (20.0-26.0) 11/18/17 10:29 Base Excess -1.0 mEq/L (-3.0-3.0) 11/18/17 10:29 O2 Saturation 97.0 % (92.0-100.0) 11/18/17 10:29 Mario Test PASS 11/18/17 10:29 Vent Rate NA 11/15/17 08:47 Inspired O2 28 11/18/17 10:29 Tidal Volume NA 11/15/17 08:47 PEEP NA 11/15/17 08:47 Pressure (ins/psv/peep) NA 11/15/17 08:47 Critical Value PW 11/18/17 10:29 Sodium 137 mEq/L (136-145) 11/25/17 06:50 Potassium 3.5 mEq/L (3.5-5.1) 11/25/17 06:50 Chloride 103 mEq/L (98-107) 11/25/17 06:50 Carbon Dioxide 26.6 mEq/L (21.0-31.0) 11/25/17 06:50 Anion Gap 10.9 (7.0-16.0) 11/25/17 06:50 BUN 99 mg/dL (7-25) H* 11/25/17 06:50 Creatinine 1.6 mg/dL (0.7-1.3) H 11/25/17 06:50 Est GFR ( Amer) TNP 11/25/17 06:50 Est GFR (Non-Af Amer) TNP 11/25/17 06:50 BUN/Creatinine Ratio 61.9 11/25/17 06:50 Glucose 235 mg/dL (70-105) H 11/25/17 06:50 POC Glucose 201 MG/DL (70 - 105) H 11/25/17 11:10 Hemoglobin A1c % 8.3 % (4.0-6.0) H 11/15/17 09:20 Whole Bld Lactic Acid 6.37 mmol/L (0.60-1.99) H* 11/15/17 11:20 Calcium 9.1 mg/dL (8.6-10.3) 11/25/17 06:50 Magnesium 2.3 mg/dL (1.9-2.7) 11/15/17 09:20 Total Bilirubin 0.3 mg/dL (0.3-1.0) 11/24/17 05:50 AST 18 U/L (13-39) 11/24/17 05:50 ALT 38 U/L (7-52) 11/24/17 05:50 Alkaline Phosphatase 63 U/L (34-104) 11/24/17 05:50 Troponin I 0.19 ng/mL (0.01-0.05) H* 11/15/17 09:01 B-Natriuretic Peptide 159.0 pg/mL (5.0-100.0) H 11/25/17 06:50 Total Protein 4.8 gm/dL (6.0-8.3) L 11/24/17 05:50 Albumin 2.2 gm/dL (4.2-5.5) L 11/24/17 05:50 Globulin 2.6 gm/dL 11/24/17 05:50 Albumin/Globulin Ratio 0.9 (1.0-1.8) L 11/24/17 05:50 Triglycerides 201 mg/dL (<150) H 11/15/17 09:20 Cholesterol 75 mg/dL (<200) 11/15/17 09:20 LDL Cholesterol Direct 8 mg/dL (75-193) L 11/15/17 09:20 HDL Cholesterol 9 mg/dL (23-92) L 11/15/17 09:20 TSH 0.75 uIU/ml (0.34-5.60) 01/08/18 09:20 Hepatitis A IgM Ab Negative (Negative) 11/17/17 17:40 Hep Bs Antigen Negative (Negative) 11/17/17 17:40 Hep B Core IgM Ab Negative (Negative) 11/17/17 17:40 Hepatitis C Antibody <0.1 s/co ratio (0.0-0.9) 11/17/17 17:40 - Physical Exam Vitals and I&O: Vital Signs Temp 96.6 F 11/25/17 07:47 Pulse 75 11/25/17 11:29 Resp 18 11/25/17 11:29 BP 132/78 11/25/17 09:18 Pulse Ox 98 11/25/17 11:29 Intake & Output 11/24/17 11/25/17 11/25/17 18:59 06:59 18:59 Intake Total 1880 850 Output Total 1350 1000 Balance 530 -150 Weight (lbs) 72.575 kg 74.049 kg Intake: Intake, IV Amount 1400 300 Cefepime 1 gm In Sodium 50 Chloride 0.9% 50 ml @ 100 mls/hr IV Q24HR [facility] Rx#: [id number] Levofloxacin 250mg/50mL 50 250 mg In Premix Fluid 1 bag @ 50 mls/hr IV Q24H [facility] Rx#:[id number] Linezolid 600mg/300mL 600 300 300 mg In 300 ml @ 200 mls/ hr IV Q12HR@0900,2100 [facility] Rx#:[id number] Sodium Chloride 0.45% 1, 1000 000 ml @ 75 mls/hr IV . [id number] [facility] Rx#:[id number] Tube Feeding 480 450 Other 100 Output: Urine 1350 1000 Other: # Bowel Movements 0 0 Active Medications: Current Medications Acetaminophen (Tylenol 650mg Supp) 650 mg RC Q4H PRN PRN Reason: Fever > 101 Stop: 01/14/18 12:49 Albuterol/Ipratropium (Duoneb Neb) 3 ml HHN Q4HRT [facility] Stop: 01/15/18 18:59 Last Admin: 11/25/17 11:25 Dose: 3 ml Amlodipine Besylate (Norvasc) 5 mg PO HS [facility] Stop: 01/14/18 20:59 Last Admin: 11/24/17 21:15 Dose: 5 mg Aspirin (Aspirin Chewable) 81 mg PO DAILY [facility] Stop: 01/15/18 08:59 Last Admin: 11/25/17 09:18 Dose: 81 mg Atorvastatin Calcium (Lipitor) 20 mg PO HS [facility] Stop: 01/14/18 22:59 Last Admin: 11/24/17 21:15 Dose: 20 mg Carvedilol (Coreg) 3.125 mg PO BID [facility] Stop: 01/14/18 16:59 Last Admin: 11/25/17 09:18 Dose: 3.125 mg Diltiazem HCl (Cardizem) 20 mg IVP Q4HR PRN PRN Reason: HR above 110 Stop: 01/23/18 08:24 Fluconazole (Diflucan) 100 mg PO DAILY [facility] Stop: 01/17/18 08:59 Last Admin: 11/25/17 09:18 Dose: 100 mg Glucagon (Glucagen) 1 mg IM PRN PRN PRN Reason: hypoglycemia Stop: 01/14/18 16:44 Diltiazem HCl 125 mg/ Dextrose 125 mls @ 10 mls/hr IV TITR RYAN; 10 MG/HR PRN Reason: Protocol Stop: 01/14/18 11:44 Last Titration: 11/16/17 03:00 Dose: 0 mg/hr, 0 mls/hr Cefepime HCl 1 gm/ Sodium (Chloride) 50 mls @ 100 mls/hr IV Q24HR [facility] Stop: 01/14/18 17:59 Last Infusion: 11/24/17 17:41 Dose: Infused Levofloxacin 250 mg/ (Miscellaneous) 50 mls @ 50 mls/hr IV Q24H [facility] Stop: 01/15/18 09:59 Last Infusion: 11/24/17 14:02 Dose: Infused Linezolid (Zyvox) 600 mg in 300 mls @ 200 mls/hr IV Q12HR@0900,2100 [facility] Stop: 01/16/18 11:59 Last Admin: 11/25/17 09:19 Dose: 200 mls/hr Sodium Chloride (Nacl 0.45%) 1,000 mls @ 75 mls/hr IV .[id number] [facility] Stop: 01/19/18 22:18 Last Admin: 11/25/17 07:18 Dose: 25 mls/hr Insulin Aspart (Novolog Insulin Sliding Scale) 0 units SUBQ ACHS [facility] PRN Reason: Protocol Stop: 01/15/18 07:29 Last Admin: 11/25/17 06:56 Dose: 3 units Insulin Detemir (Levemir Insulin) 14 units SUBQ BID [facility] PRN Reason: Protocol Stop: 01/20/18 16:59 Last Admin: 11/25/17 09:17 Dose: 14 units Methylprednisolone Sodium Succinate (Solu-Medrol) 20 mg IVP DAILY [facility] Stop: 01/24/18 08:59 Last Admin: 11/25/17 09:19 Dose: 20 mg Mirtazapine (Remeron) 30 mg PO HS [facility] Stop: 01/14/18 22:59 Last Admin: 11/24/17 21:14 Dose: 30 mg Miscellaneous (Probiotic Screen) 1 ea MC PRN PRN PRN Reason: PROTOCOL Stop: 01/19/18 16:29 Neomycin/Polymyxin/Bacitracin (Triple Antibiotic Ointment) 1 appl TP DAILY [facility] Stop: 01/15/18 08:59 Last Admin: 11/25/17 09:34 Dose: 1 appl Olanzapine (Zyprexa) 10 mg PO TID [facility] PRN Reason: Protocol Stop: 01/14/18 20:59 Last Admin: 11/25/17 09:18 Dose: 10 mg Pantoprazole Sodium (Protonix) 40 mg PO DAILY [facility] Stop: 01/15/18 08:59 Last Admin: 11/25/17 09:19 Dose: 40 mg Rivaroxaban (Xarelto) 5 mg PO DAILY [facility] Stop: 01/21/18 15:59 Last Admin: 11/25/17 09:34 Dose: Not Given General: Alert, Other (lethargic) HEENT: PERRLA Neck: Supple Cardiovascular: Regular rate, Other (multiple PVC) Lungs: Other (rhonchi) Abdomen: Bowel sounds, Soft, Distended Extremities: Edema Psych/Mental Status: Other (lethargic) - Procedures Procedures: Procedures Procedure Code Date INSERT TUNNELED CV CATH 40195 11/15/17 INSERTION OF INFUSION DEV INTO R SUBCLAV VEIN, PERC APPROACH 41Y076A 11/15/17 Assessment/Plan - Problem List Patient Problems: All Active Problems SEVERE RESPIRATORY DISTRESS (Acute) - Assessment Assessment: 1.PNEUMONIA. 2.COPD. 3.A FIB. 4.DEMENTIA. 5.PENNY. secondary to ATN. Patient was on Hemodialysis until last week but now stopped and Matthew removed. Serum Creat improved. Adequate urine out put. 6.Elevated BUN Likely due to high dose steroids. Steroid is on huber down. - Plan Plan: Monitor renal function daily for decrease in serum BUN after decrease in steroids. Restart Hemodialysis if patient's renal function gets worse again. Elevated WBC also likely secondary to steroids. Blood culture and urine culture negative to date and no fever. Nutritional Asmnt/Malnutr-PDOC - Dietary Evaluation Malnutrition Findings (Please click <Entered> for more info): Nutritional Asmnt/Malnutrition Start: 11/16/17 14: 06 Text: Status: Complete Freq: Document 11/16/17 14:06 [email or web address] (Rec: 11/16/17 14:20 [email or web address]) Nutritional Asmnt/Malnutrition Patient General Information Nutritional Screening High Risk Consult Diagnosis actute renal failure, sepsis, PNA Pertinent Medical Hx/Surgical Hx hyperlipidemia, CHF, HTN, COPD , ICD device Subjective Information Consult received for admit blood sugar 263. Pt seen sleeping in bed at the time of visit. Spoke with RN, pt refused breakfast this morning possible d/t weakness and being sick. Current Diet Order/ Nutrition Support low chlesterol 300gm Pertinent Medications glucagen, novolog, remeron, nacl 0.9% Pertinent Labs 11/15 Na 137, K 4.6, Cl 110, BUN 105, Cr 2.9, GLucose 295, POC 246-370 since admit, a1c 8.3, calcium 9.2 Nutritional Hx/Data Height 1.85 m Height (Calculated Centimeters) 185.4 Current Weight (lbs) 62.55 kg Weight (Calculated Kilograms) 62.6 Weight (Calculated Grams) 10708.4 [place] Body Weight 184 % [place] Body Weight 75 Body Mass Index (BMI) 18.1 Weight Status Underweight GI Symptoms GI Symptoms None Last BM no record Skin Integrity/Comment: pressure area to heels Current %PO Negligible < 25% Estimated Nutritional Goals Calories/Kcals/Kg 25-30 Kcals Calculated 7311-7475 based on IBW considering underweight and sepsis Protein g/k-1.2 Protein Calculated 84-100 Fluid: ml 2089-250ml (1ml/kcal) Nutritional Problem 2. Problem Problem altered nutrition related lab values Etiology acute renal failure, hx of DM Signs/Symptoms: BUN 105, Cr 2.9, GLucose 295, POC 246-370, a1c 8.3, 1. Problem Problem increased nutrition needs ( calorie and protein) Etiology increased metabolic demand for healing and underweight Signs/Symptoms: dx of sepsis and PNA, BMI 18.2 Malnutrition Alert Protein-Calorie Malnutrition N/A Is there a minimum of two criteria No selected? Query Text:Check all the applicable criteria. A minimum of two criteria are recommended for diagnosis of either severe or non-severe malnutrition. Intervention/Recommendation Comments 1. Recommend modify diet to CCHO, low cholesteral diet for optimal glycemic control. RN made aware, will talk to MD 2. Monitor PO intake, wt, labs and skin integrity 3. F/U as high risk in 2-3 days, 11/18-11/19 Expected Outcomes/Goals Expected Outcomes/Goals 1. PO intake to meet at least 75% of nutritional needs. 2. Wt stability, skin to remain intact, labs to improve
[2017-11-25] MEDS: Levofloxacin 250mg/50mL 250 MG in Premix Fluid 1 BAG IV SCH (13:27)
[2017-11-25] MEDS: Cefepime 1 GM in Sodium Chloride 0.9% 50 ML IV SCH (17:57)
--- NOTE | 2017-11-25 20:10 | Internal Medicine Prog Note ---
Internal Medicine Subjective - Subjective Service Date: 11/25/17 Patient seen and examined:: with staff Patient is:: awake, non-verbal, in bed, confused, congested Per staff patient has:: no adverse event (HE HAS POOR APETITE) Internal Medicine Objective - Results Result Diagrams: 11/24/17 05:50 11/25/17 06:50 Recent Labs: Laboratory Last Values WBC 23.5 Th/cmm (4.8-10.8) H* D 11/24/17 05:50 RBC 3.56 Mil/cmm (3.80-5.80) L 11/24/17 05:50 Hgb 10.7 gm/dL (12-16) L 11/24/17 05:50 Hct 31.5 % (41.0-60) L 11/24/17 05:50 MCV 88.5 fl (80-99) 11/24/17 05:50 MCH 30.2 pg (27.0-31.0) 11/24/17 05:50 MCHC Differential 34.1 pg (28.0-36.0) 11/24/17 05:50 RDW 13.8 % (11.5-20.0) 11/24/17 05:50 Plt Count 146 Th/cmm (150-400) L D 11/24/17 05:50 MPV 10.2 fl 11/24/17 05:50 Neutrophils % 94.7 % (40.0-80.0) H 11/17/17 07:45 Band Neutrophils % 6 % (0-10) 11/19/17 05:30 Lymphocytes % 3.7 % (20.0-50.0) L 11/17/17 07:45 Monocytes % 1.6 % (2.0-10.0) L 11/17/17 07:45 Eosinophils % 0.0 % (0.0-5.0) 11/17/17 07:45 Basophils % 0.0 % (0.0-2.0) 11/15/17 09:01 Neutrophils (Manual) 87 % (40-80) H 11/19/17 05:30 Lymphocytes 6 % (20-50) L 11/19/17 05:30 Monocytes 1 % (2-10) L 11/19/17 05:30 Platelet Estimate SLIGHT DECREASED (NORMAL) 11/19/17 05:30 PT 12.3 SECONDS (9.5-11.5) H 11/25/17 06:50 INR 1.17 (0.5-1.4) 11/25/17 06:50 Specimen Source Arterial 11/18/17 10:29 Sample Site Right Radial 11/18/17 10:29 pH 7.48 (7.35-7.45) H 11/18/17 10:29 pCO2 29.0 mmHg (35.0-45.0) L 11/18/17 10:29 pO2 81.0 mmHg (80.0-100.0) 11/18/17 10:29 HCO3 24.1 mEq/L (20.0-26.0) 11/18/17 10:29 Base Excess -1.0 mEq/L (-3.0-3.0) 11/18/17 10:29 O2 Saturation 97.0 % (92.0-100.0) 11/18/17 10:29 Mario Test PASS 11/18/17 10:29 Vent Rate NA 11/15/17 08:47 Inspired O2 28 11/18/17 10:29 Tidal Volume NA 11/15/17 08:47 PEEP NA 11/15/17 08:47 Pressure (ins/psv/peep) NA 11/15/17 08:47 Critical Value PW 11/18/17 10:29 Sodium 137 mEq/L (136-145) 11/25/17 06:50 Potassium 3.5 mEq/L (3.5-5.1) 11/25/17 06:50 Chloride 103 mEq/L (98-107) 11/25/17 06:50 Carbon Dioxide 26.6 mEq/L (21.0-31.0) 11/25/17 06:50 Anion Gap 10.9 (7.0-16.0) 11/25/17 06:50 BUN 99 mg/dL (7-25) H* 11/25/17 06:50 Creatinine 1.6 mg/dL (0.7-1.3) H 11/25/17 06:50 Est GFR ( Amer) TNP 11/25/17 06:50 Est GFR (Non-Af Amer) TNP 11/25/17 06:50 BUN/Creatinine Ratio 61.9 11/25/17 06:50 Glucose 235 mg/dL (70-105) H 11/25/17 06:50 POC Glucose 195 MG/DL (70 - 105) H 11/25/17 16:47 Hemoglobin A1c % 8.3 % (4.0-6.0) H 11/15/17 09:20 Whole Bld Lactic Acid 6.37 mmol/L (0.60-1.99) H* 11/15/17 11:20 Calcium 9.1 mg/dL (8.6-10.3) 11/25/17 06:50 Magnesium 2.3 mg/dL (1.9-2.7) 11/15/17 09:20 Total Bilirubin 0.3 mg/dL (0.3-1.0) 11/24/17 05:50 AST 18 U/L (13-39) 11/24/17 05:50 ALT 38 U/L (7-52) 11/24/17 05:50 Alkaline Phosphatase 63 U/L (34-104) 11/24/17 05:50 Troponin I 0.19 ng/mL (0.01-0.05) H* 11/15/17 09:01 B-Natriuretic Peptide 159.0 pg/mL (5.0-100.0) H 11/25/17 06:50 Total Protein 4.8 gm/dL (6.0-8.3) L 11/24/17 05:50 Albumin 2.2 gm/dL (4.2-5.5) L 11/24/17 05:50 Globulin 2.6 gm/dL 11/24/17 05:50 Albumin/Globulin Ratio 0.9 (1.0-1.8) L 11/24/17 05:50 Triglycerides 201 mg/dL (<150) H 11/15/17 09:20 Cholesterol 75 mg/dL (<200) 11/15/17 09:20 LDL Cholesterol Direct 8 mg/dL (75-193) L 11/15/17 09:20 HDL Cholesterol 9 mg/dL (23-92) L 11/15/17 09:20 TSH 0.75 uIU/ml (0.34-5.60) 11/15/17 09:20 Hepatitis A IgM Ab Negative (Negative) 11/17/17 17:40 Hep Bs Antigen Negative (Negative) 01/10/18 17:40 Hep B Core IgM Ab Negative (Negative) 11/17/17 17:40 Hepatitis C Antibody <0.1 s/co ratio (0.0-0.9) 11/17/17 17:40 - Physical Exam Vitals and I&O: Vital Signs Temp 97.6 F 11/25/17 15:58 Pulse 85 11/25/17 18:52 Resp 18 11/25/17 18:52 BP 131/73 11/25/17 17:06 Pulse Ox 99 11/25/17 18:52 Intake & Output 11/25/17 11/25/17 11/26/17 06:59 18:59 06:59 Intake Total 850 1350 Output Total 1000 1000 Balance -150 350 Weight (lbs) 74.049 kg 83.915 kg Intake: Intake, IV Amount 300 350 Levofloxacin 250mg/50mL 50 250 mg In Premix Fluid 1 bag @ 50 mls/hr IV Q24H [facility] Rx#:[id number] Linezolid 600mg/300mL 600 300 300 mg In 300 ml @ 200 mls/ hr IV Q12HR@0900,2100 [facility] Rx#:[id number] Tube Feeding 450 TPN/PPN 480 Other 100 520 Output: Urine 1000 1000 Other: # Bowel Movements 0 0 Active Medications: Current Medications Acetaminophen (Tylenol 650mg Supp) 650 mg RC Q4H PRN PRN Reason: Fever > 101 Stop: 01/14/18 12:49 Albuterol/Ipratropium (Duoneb Neb) 3 ml HHN Q4HRT [facility] Stop: 01/15/18 18:59 Last Admin: 11/25/17 18:52 Dose: 3 ml Amlodipine Besylate (Norvasc) 5 mg PO HS [facility] Stop: 01/14/18 20:59 Last Admin: 11/24/17 21:15 Dose: 5 mg Aspirin (Aspirin Chewable) 81 mg PO DAILY [facility] Stop: 01/15/18 08:59 Last Admin: 11/25/17 09:18 Dose: 81 mg Atorvastatin Calcium (Lipitor) 20 mg PO HS [facility] Stop: 01/14/18 22:59 Last Admin: 11/24/17 21:15 Dose: 20 mg Carvedilol (Coreg) 3.125 mg PO BID [facility] Stop: 01/14/18 16:59 Last Admin: 11/25/17 17:06 Dose: 3.125 mg Diltiazem HCl (Cardizem) 20 mg IVP Q4HR PRN PRN Reason: HR above 110 Stop: 01/23/18 08:24 Fluconazole (Diflucan) 100 mg PO DAILY [facility] Stop: 01/17/18 08:59 Last Admin: 11/25/17 09:18 Dose: 100 mg Glucagon (Glucagen) 1 mg IM PRN PRN PRN Reason: hypoglycemia Stop: 01/14/18 16:44 Diltiazem HCl 125 mg/ Dextrose 125 mls @ 10 mls/hr IV TITR RYAN; 10 MG/HR PRN Reason: Protocol Stop: 01/14/18 11:44 Last Titration: 11/16/17 03:00 Dose: 0 mg/hr, 0 mls/hr Cefepime HCl 1 gm/ Sodium (Chloride) 50 mls @ 100 mls/hr IV Q24HR [facility] Stop: 01/14/18 17:59 Last Admin: 11/25/17 17:57 Dose: 100 mls/hr Levofloxacin 250 mg/ (Miscellaneous) 50 mls @ 50 mls/hr IV Q24H [facility] Stop: 01/15/18 09:59 Last Infusion: 11/25/17 14:27 Dose: Infused Linezolid (Zyvox) 600 mg in 300 mls @ 200 mls/hr IV Q12HR@0900,2100 [facility] Stop: 01/16/18 11:59 Last Infusion: 11/25/17 10:49 Dose: Infused Sodium Chloride (Nacl 0.45%) 1,000 mls @ 75 mls/hr IV .[id number] [facility] Stop: 01/19/18 22:18 Last Admin: 11/25/17 07:18 Dose: 25 mls/hr Insulin Aspart (Novolog Insulin Sliding Scale) 0 units SUBQ ACHS [facility] PRN Reason: Protocol Stop: 01/15/18 07:29 Last Admin: 11/25/17 17:11 Dose: 3 units Insulin Detemir (Levemir Insulin) 14 units SUBQ BID [facility] PRN Reason: Protocol Stop: 01/20/18 16:59 Last Admin: 11/25/17 17:11 Dose: 14 units Methylprednisolone Sodium Succinate (Solu-Medrol) 20 mg IVP DAILY [facility] Stop: 01/24/18 08:59 Last Admin: 11/25/17 09:19 Dose: 20 mg Mirtazapine (Remeron) 30 mg PO HS [facility] Stop: 01/14/18 22:59 Last Admin: 11/24/17 21:14 Dose: 30 mg Miscellaneous (Probiotic Screen) 1 ea MC PRN PRN PRN Reason: PROTOCOL Stop: 01/19/18 16:29 Neomycin/Polymyxin/Bacitracin (Triple Antibiotic Ointment) 1 appl TP DAILY [facility] Stop: 01/15/18 08:59 Last Admin: 11/25/17 09:34 Dose: 1 appl Olanzapine (Zyprexa) 10 mg PO TID [facility] PRN Reason: Protocol Stop: 01/14/18 20:59 Last Admin: 11/25/17 17:10 Dose: 10 mg Pantoprazole Sodium (Protonix) 40 mg PO DAILY [facility] Stop: 01/15/18 08:59 Last Admin: 11/25/17 09:19 Dose: 40 mg Rivaroxaban (Xarelto) 5 mg PO DAILY [facility] Stop: 01/21/18 15:59 Last Admin: 11/25/17 09:34 Dose: Not Given General: weak, demented HEENT: PERRLA, EOMI, anicteric sclerae, throat clear Neck: Supple, No JVD, No thyromegaly, No LAD Lungs: congested, ronchi Cardiovascular: Normal S2, other (IRRIGULAR) Extremities: clear Neurological: no change - Procedures Procedures: Procedures Procedure Code Date INSERT TUNNELED CV CATH [id number] 11/15/17 INSERTION OF INFUSION DEV INTO R SUBCLAV VEIN, PERC APPROACH [id number] 11/15/17 Internal Medicine Assmt/Plan - Assessment Assessment: 1.PNEUMONIA. 2.COPD. 3.PAFIB 4.DEMENTIA. 5.PENNY. 6.DEHYDRATION. 7.DM - Plan Plan: CONTINUE ON CURRENT MEDICATION AND DIET. Nutritional Asmnt/Malnutr-PDOC - Dietary Evaluation Malnutrition Findings (Please click <Entered> for more info): Nutritional Asmnt/Malnutrition Start: 11/16/17 14: 06 Text: Status: Complete Freq: Document 11/16/17 14:06 LISA (Rec: 11/16/17 14:20 [email or web address]) Nutritional Asmnt/Malnutrition Patient General Information Nutritional Screening High Risk Consult Diagnosis actute renal failure, sepsis, PNA Pertinent Medical Hx/Surgical Hx hyperlipidemia, CHF, HTN, COPD , ICD device Subjective Information Consult received for admit blood sugar 263. Pt seen sleeping in bed at the time of visit. Spoke with RN, pt refused breakfast this morning possible d/t weakness and being sick. Current Diet Order/ Nutrition Support low chlesterol 300gm Pertinent Medications glucagen, novolog, remeron, nacl 0.9% Pertinent Labs 11/15 Na 137, K 4.6, Cl 110, BUN 105, Cr 2.9, GLucose 295, POC 246-370 since admit, a1c 8.3, calcium 9.2 Nutritional Hx/Data Height 1.85 m Height (Calculated Centimeters) 185.4 Current Weight (lbs) 62.55 kg Weight (Calculated Kilograms) 62.6 Weight (Calculated Grams) 55206.4 [place] Body Weight 184 % [place] Body Weight 75 Body Mass Index (BMI) 18.1 Weight Status Underweight GI Symptoms GI Symptoms None Last BM no record Skin Integrity/Comment: pressure area to heels Current %PO Negligible < 25% Estimated Nutritional Goals Calories/Kcals/Kg 25-30 Kcals Calculated 1490-3066 based on IBW considering underweight and sepsis Protein g/k-1.2 Protein Calculated 84-100 Fluid: ml 2089-250ml (1ml/kcal) Nutritional Problem 2. Problem Problem altered nutrition related lab values Etiology acute renal failure, hx of DM Signs/Symptoms: BUN 105, Cr 2.9, GLucose 295, POC 246-370, a1c 8.3, 1. Problem Problem increased nutrition needs ( calorie and protein) Etiology increased metabolic demand for healing and underweight Signs/Symptoms: dx of sepsis and PNA, BMI 18.2 Malnutrition Alert Protein-Calorie Malnutrition N/A Is there a minimum of two criteria No selected? Query Text:Check all the applicable criteria. A minimum of two criteria are recommended for diagnosis of either severe or non-severe malnutrition. Intervention/Recommendation Comments 1. Recommend modify diet to CCHO, low cholesteral diet for optimal glycemic control. RN made aware, will talk to MD 2. Monitor PO intake, wt, labs and skin integrity 3. F/U as high risk in 2-3 days, 11/18-11/19 Expected Outcomes/Goals Expected Outcomes/Goals 1. PO intake to meet at least 75% of nutritional needs. 2. Wt stability, skin to remain intact, labs to improve
[2017-11-25] MEDS: Atorvastatin Calcium 10 MG TAB PO SCH (20:41)
[2017-11-26] MEDS: Albuterol/Ipratropium Neb 3 ML AERS HHN SCH ×6 (03:07→23:34)
[2017-11-26] MEDS: Sodium Chloride 0.45% 1,000 ML IV SCH (03:32)
[2017-11-26] MEDS: INSULIN ASPART SLIDING SCALE 100 UNITS/ML UNIT SUBQ SCH ×3 (07:46→18:08)
[2017-11-26] MEDS ORDERED: Lidocaine 2% Gel 5 mL TP ONE (08:27)
[2017-11-26] MEDS ORDERED: Lidocaine Mpf 1% 10 mL Amp EPI ONE (08:27)
[2017-11-26] MEDS ORDERED: Propofol 10 mg/mL 20mL Vial **SURGERY USE ONLY IV ONE (08:27)
[2017-11-26 08:33] LABS: CALCIUM SERUM 9.1 mg/dL (8.6-10.3); CARBON DIOXIDE 29.5 mEq/L (21.0-31.0); CHLORIDE 105 mEq/L (98-107); CREATININE - SERUM 1.3 mg/dL (0.7-1.3); GLUCOSE 72 mg/dL (70-105); POTASSIUM SERUM 3.5 mEq/L (3.5-5.1); SODIUM SERUM 136 mEq/L (136-145)
[2017-11-26 08:39] LABS: BUN - UREA NITROGEN 91 mg/dL (7-25)
[2017-11-26] MEDS: Linezolid 600mg/300mL 600 MG/300 ML BAG IV SCH ×2 (10:23→21:21)
[2017-11-26] MEDS: methylPREDNISolone SS 40 mg Vial IVP SCH (10:25)
[2017-11-26] MEDS: Pantoprazole 40 mg EC Tab PO SCH (10:26)
[2017-11-26] MEDS: Aspirin 81mg Chewable Tab PO SCH (10:26)
[2017-11-26] MEDS: Insulin Detemir 100 units/mL 10mL Vial SUBQ SCH ×2 (10:37→18:09)
[2017-11-26] MEDS: Triple Antibiotic Ointment 28gm tube TP SCH (10:39)
--- NOTE | 2017-11-26 11:54 | Operative Report ---
DATE OF SURGERY: 11/26/2017 PROCEDURE: Inpatient EGD and PEG placement. ENDOSCOPIST: Patric Lee M.D. PREOPERATIVE DIAGNOSES: Dysphagia, failed swallow evaluation and dementia. 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 INDICATION: The patient is a 77-year-old male with coronary artery disease, congestive heart failure, dementia, who has failed swallow evaluation and has not been able to take in adequate p.o. for several weeks and has been reliant on NG tube feeding. He is here for G-tube placement. CONSENT: Informed consent was obtained from the patient's conservator. The risks and benefits of the procedure were discussed and included but not limited to infection, bleeding, cardiopulmonary complications and missed pathology, G-tube site infection, peritonitis related to G-tube insertion, premature G-tube removal and . The patient conservator indicated that they understood the risks of this procedure and wished to avoid procedure and signed a consent form. ANESTHESIA: This procedure was done under general anesthesia under the care of an anesthesiologist. PROCEDURE IN DETAIL: After the administration of general anesthesia, the patient was kept in the supine position. A mouthpiece was inserted and secured. A gastroscope was introduced into the mouth and guided under direct visualization into the esophagus, stomach and duodenum. Of note, the patient did have a redundant stomach and the antrum was folded on itself. With pressure, the scope was able to intubate the duodenum. There was some mild duodenitis noted. There were no ulcers or mass lesions in the stomach. In the esophagus, the GE junction was located at 40 cm from the incisors. There was extension of the columnar mucosa, 1-2 cm and thus biopsies were taken to evaluate for Aguilar's or dysplasia. Next, the stomach was maximally insufflated and transilluminated and an appropriate place for the G-tube was found using the single poke method and transillumination. Lidocaine was then administered subcu in this area. The Lidocaine finder needle was seen to enter the stomach on visualization with the scope. A small incision was made in this area using a scalpel. After this, a needle and sheath was inserted through this area and seen to enter into the stomach. A guidewire was then inserted through the sheath and the sheath was grasped with the snare from above by the endoscopist. The needle was then removed and the guidewire was grasped with the snare and pulled out of the mouth. Next, the 20-[place]vian G-tube was affixed to this guidewire and the G-tube was then pulled back down through the mouth and snugged to the abdominal wall. Next, the antibiotic ointment was placed in the skin and an external bumper was placed with 1 cm of tube between the skin and the bumper. After this, the scope was reintroduced into the stomach and the internal bumper was seen to be in place and freely rotatable. Of note, biopsies were taken from the Z-line to evaluate for Aguilar's esophagus using excisional biopsy technique. IMPRESSION: 1. 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 2. 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 3. Successful placement of a G-tube. RECOMMENDATIONS: 1. The G-tube can be used immediately for water flushes and for medication. 2. Feeding should be held until 8 hours after the procedure, at which point it can be started at 10 mL an hour and increase by 10 mL per hour until a goal rate of 50 mL per hour is met. Please check residuals every 6 hours and hold for residuals greater than 150 mL. 3. Please flush the G-tube with 100 mL of water every [address] an abdominal binder. 5. Follow up the Z-line biopsies to evaluate for Aguilar's esophagus, although this patient likely will be a poor candidate for any sort of therapy if dysplasia is found. Thank you for allowing me to participate in this patient's care. Please call me with any further questions. JOB# [id number]
[2017-11-26] MEDS: Levofloxacin 250mg/50mL 250 MG in Premix Fluid 1 BAG IV SCH (12:16)
--- NOTE | 2017-11-26 13:22 | Internal Medicine Prog Note ---
Internal Medicine Subjective - Subjective Service Date: 11/26/17 Patient seen and examined:: with staff Patient is:: awake, non-verbal, in bed, confused, congested Per staff patient has:: no adverse event (HE HAS POOR APETITE) Internal Medicine Objective - Results Result Diagrams: 11/24/17 05:50 11/26/17 08:05 Recent Labs: Laboratory Last Values WBC 23.5 Th/cmm (4.8-10.8) H* D 11/24/17 05:50 RBC 3.56 Mil/cmm (3.80-5.80) L 11/24/17 05:50 Hgb 10.7 gm/dL (12-16) L 11/24/17 05:50 Hct 31.5 % (41.0-60) L 11/24/17 05:50 MCV 88.5 fl (80-99) 11/24/17 05:50 MCH 30.2 pg (27.0-31.0) 11/24/17 05:50 MCHC Differential 34.1 pg (28.0-36.0) 11/24/17 05:50 RDW 13.8 % (11.5-20.0) 11/24/17 05:50 Plt Count 146 Th/cmm (150-400) L D 11/24/17 05:50 MPV 10.2 fl 11/24/17 05:50 Neutrophils % 94.7 % (40.0-80.0) H 11/17/17 07:45 Band Neutrophils % 6 % (0-10) 11/19/17 05:30 Lymphocytes % 3.7 % (20.0-50.0) L 11/17/17 07:45 Monocytes % 1.6 % (2.0-10.0) L 11/17/17 07:45 Eosinophils % 0.0 % (0.0-5.0) 11/17/17 07:45 Basophils % 0.0 % (0.0-2.0) 11/15/17 09:01 Neutrophils (Manual) 87 % (40-80) H 11/19/17 05:30 Lymphocytes 6 % (20-50) L 11/19/17 05:30 Monocytes 1 % (2-10) L 11/19/17 05:30 Platelet Estimate SLIGHT DECREASED (NORMAL) 11/19/17 05:30 PT 12.3 SECONDS (9.5-11.5) H 11/25/17 06:50 INR 1.17 (0.5-1.4) 11/25/17 06:50 Specimen Source Arterial 11/18/17 10:29 Sample Site Right Radial 11/18/17 10:29 pH 7.48 (7.35-7.45) H 11/18/17 10:29 pCO2 29.0 mmHg (35.0-45.0) L 11/18/17 10:29 pO2 81.0 mmHg (80.0-100.0) 11/18/17 10:29 HCO3 24.1 mEq/L (20.0-26.0) 11/18/17 10:29 Base Excess -1.0 mEq/L (-3.0-3.0) 11/18/17 10:29 O2 Saturation 97.0 % (92.0-100.0) 11/18/17 10:29 Mario Test PASS 11/18/17 10:29 Vent Rate NA 11/15/17 08:47 Inspired O2 28 11/18/17 10:29 Tidal Volume NA 11/15/17 08:47 PEEP NA 11/15/17 08:47 Pressure (ins/psv/peep) NA 11/15/17 08:47 Critical Value PW 11/18/17 10:29 Sodium 136 mEq/L (136-145) 11/26/17 08:05 Potassium 3.5 mEq/L (3.5-5.1) 11/26/17 08:05 Chloride 105 mEq/L (98-107) 11/26/17 08:05 Carbon Dioxide 29.5 mEq/L (21.0-31.0) 11/26/17 08:05 Anion Gap 5.0 (7.0-16.0) L 11/26/17 08:05 BUN 91 mg/dL (7-25) H* 11/26/17 08:05 Creatinine 1.3 mg/dL (0.7-1.3) 11/26/17 08:05 Est GFR ( Amer) TNP 11/26/17 08:05 Est GFR (Non-Af Amer) TNP 11/26/17 08:05 BUN/Creatinine Ratio 70.0 11/26/17 08:05 Glucose 72 mg/dL (70-105) 11/26/17 08:05 POC Glucose 73 MG/DL (70 - 105) 11/26/17 11:23 Hemoglobin A1c % 8.3 % (4.0-6.0) H 11/15/17 09:20 Whole Bld Lactic Acid 6.37 mmol/L (0.60-1.99) H* 11/15/17 11:20 Calcium 9.1 mg/dL (8.6-10.3) 11/26/17 08:05 Magnesium 2.3 mg/dL (1.9-2.7) 11/15/17 09:20 Total Bilirubin 0.3 mg/dL (0.3-1.0) 11/24/17 05:50 AST 18 U/L (13-39) 11/24/17 05:50 ALT 38 U/L (7-52) 11/24/17 05:50 Alkaline Phosphatase 63 U/L (34-104) 11/24/17 05:50 Troponin I 0.19 ng/mL (0.01-0.05) H* 11/15/17 09:01 B-Natriuretic Peptide 159.0 pg/mL (5.0-100.0) H 11/25/17 06:50 Total Protein 4.8 gm/dL (6.0-8.3) L 11/24/17 05:50 Albumin 2.2 gm/dL (4.2-5.5) L 11/24/17 05:50 Globulin 2.6 gm/dL 11/24/17 05:50 Albumin/Globulin Ratio 0.9 (1.0-1.8) L 11/24/17 05:50 Triglycerides 201 mg/dL (<150) H 11/15/17 09:20 Cholesterol 75 mg/dL (<200) 11/15/17 09:20 LDL Cholesterol Direct 8 mg/dL (75-193) L 11/15/17 09:20 HDL Cholesterol 9 mg/dL (23-92) L 11/15/17 09:20 TSH 0.75 uIU/ml (0.34-5.60) 11/15/17 09:20 Hepatitis A IgM Ab Negative (Negative) 11/17/17 17:40 Hep Bs Antigen Negative (Negative) 11/17/17 17:40 Hep B Core IgM Ab Negative (Negative) 11/17/17 17:40 Hepatitis C Antibody <0.1 s/co ratio (0.0-0.9) 11/17/17 17:40 - Physical Exam Vitals and I&O: Vital Signs Temp 97.7 F 11/26/17 11:58 Pulse 84 11/26/17 11:58 Resp 17 11/26/17 11:58 BP 130/65 11/26/17 11:58 Pulse Ox 97 11/26/17 11:58 Intake & Output 11/25/17 11/26/17 11/26/17 18:59 06:59 18:59 Intake Total 1350 1055.833 Output Total 1000 800 Balance 350 255.833 Weight (lbs) 83.915 kg 76.374 kg Intake: Intake, IV Amount 350 805.833 Levofloxacin 250mg/50mL 50 250 mg In Premix Fluid 1 bag @ 50 mls/hr IV Q24H [facility] Rx#:[id number] Linezolid 600mg/300mL 600 300 300 mg In 300 ml @ 200 mls/ hr IV Q12HR@0900,2100 [facility] Rx#:[id number] Sodium Chloride 0.45% 1, 505.833 000 ml @ 75 mls/hr IV . [id number] [facility] Rx#:[id number] TPN/PPN 480 Other 520 250 Output: Urine 1000 800 Other: # Bowel Movements 0 Active Medications: Current Medications Acetaminophen (Tylenol 650mg Supp) 650 mg RC Q4H PRN PRN Reason: Fever > 101 Stop: 01/14/18 12:49 Albuterol/Ipratropium (Duoneb Neb) 3 ml HHN Q4HRT R[facility]AN Stop: 01/15/18 18:59 Last Admin: 11/26/17 11:09 Dose: 3 ml Amlodipine Besylate (Norvasc) 5 mg PO HS [facility]AN Stop: 01/14/18 20:59 Last Admin: 11/25/17 20:41 Dose: 5 mg Aspirin (Aspirin Chewable) 81 mg PO DAILY [facility] Stop: 01/15/18 08:59 Last Admin: 11/26/17 10:26 Dose: 81 mg Atorvastatin Calcium (Lipitor) 20 mg PO HS [facility] Stop: 01/14/18 22:59 Last Admin: 11/25/17 20:41 Dose: 20 mg Carvedilol (Coreg) 3.125 mg PO BID [facility] Stop: 01/14/18 16:59 Last Admin: 11/26/17 10:26 Dose: 3.125 mg Diltiazem HCl (Cardizem) 20 mg IVP Q4HR PRN PRN Reason: HR above 110 Stop: 01/23/18 08:24 Fluconazole (Diflucan) 100 mg PO DAILY [facility] Stop: 01/17/18 08:59 Last Admin: 11/26/17 10:26 Dose: 100 mg Glucagon (Glucagen) 1 mg IM PRN PRN PRN Reason: hypoglycemia Stop: 01/14/18 16:44 Diltiazem HCl 125 mg/ Dextrose 125 mls @ 10 mls/hr IV TITR RYAN; 10 MG/HR PRN Reason: Protocol Stop: 01/14/18 11:44 Last Titration: 11/16/17 03:00 Dose: 0 mg/hr, 0 mls/hr Cefepime HCl 1 gm/ Sodium (Chloride) 50 mls @ 100 mls/hr IV Q24HR [facility] Stop: 01/14/18 17:59 Last Admin: 11/25/17 17:57 Dose: 100 mls/hr Levofloxacin 250 mg/ (Miscellaneous) 50 mls @ 50 mls/hr IV Q24H [facility] Stop: 01/15/18 09:59 Last Admin: 11/26/17 12:16 Dose: 50 mls/hr Linezolid (Zyvox) 600 mg in 300 mls @ 200 mls/hr IV Q12HR@0900,2100 [facility] Stop: 01/16/18 11:59 Last Admin: 11/26/17 10:23 Dose: 200 mls/hr Sodium Chloride (Nacl 0.45%) 1,000 mls @ 75 mls/hr IV .[id number] [facility] Stop: 01/19/18 22:18 Last Admin: 11/26/17 03:32 Dose: 25 mls/hr Insulin Aspart (Novolog Insulin Sliding Scale) 0 units SUBQ ACHS [facility] PRN Reason: Protocol Stop: 01/15/18 07:29 Last Admin: 11/26/17 11:25 Dose: Not Given Insulin Detemir (Levemir Insulin) 14 units SUBQ BID [facility] PRN Reason: Protocol Stop: 01/20/18 16:59 Last Admin: 11/26/17 10:37 Dose: Not Given Methylprednisolone Sodium Succinate (Solu-Medrol) 20 mg IVP DAILY [facility] Stop: 01/24/18 08:59 Last Admin: 11/26/17 10:25 Dose: 20 mg Mirtazapine (Remeron) 30 mg PO HS [facility]AN Stop: 01/14/18 22:59 Last Admin: 11/25/17 20:42 Dose: 30 mg Miscellaneous (Probiotic Screen) 1 ea MC PRN PRN PRN Reason: PROTOCOL Stop: 01/19/18 16:29 Neomycin/Polymyxin/Bacitracin (Triple Antibiotic Ointment) 1 appl TP DAILY [facility] Stop: 01/15/18 08:59 Last Admin: 11/26/17 10:39 Dose: 1 appl Olanzapine (Zyprexa) 10 mg PO TID [facility]AN PRN Reason: Protocol Stop: 01/14/18 20:59 Last Admin: 11/26/17 10:26 Dose: 10 mg Pantoprazole Sodium (Protonix) 40 mg PO DAILY [facility] Stop: 01/15/18 08:59 Last Admin: 11/26/17 10:26 Dose: 40 mg Rivaroxaban (Xarelto) 5 mg PO DAILY [facility] Stop: 01/21/18 15:59 Last Admin: 11/26/17 10:38 Dose: Not Given General: weak, demented HEENT: PERRLA, EOMI, anicteric sclerae, throat clear Neck: Supple, No JVD, No thyromegaly, No LAD Lungs: congested, ronchi Cardiovascular: Normal S2, other (IRRIGULAR) Extremities: clear Neurological: no change - Procedures Procedures: Procedures Procedure Code Date INSERT TUNNELED CV CATH [id number] 11/15/17 INSERTION OF INFUSION DEV INTO R SUBCLAV VEIN, PERC APPROACH [id number] 11/15/17 Internal Medicine Assmt/Plan - Assessment Assessment: 1.PNEUMONIA. 2.COPD. 3.PAFIB 4.DEMENTIA. 5.PENNY. 6.DEHYDRATION. 7.DM 8.SP GT PLACEMENT. - Plan Plan: CONTINUE ON CURRENT MEDICATION AND DIET.OK TO BE TRANSFERED TO [facility] IF BED IS AVAILABLE. Nutritional Asmnt/Malnutr-PDOC - Dietary Evaluation Malnutrition Findings (Please click <Entered> for more info): Nutritional Asmnt/Malnutrition Start: 11/16/17 14: 06 Text: Status: Complete Freq: Document 11/16/17 14:06 LISA (Rec: 11/16/17 14:20 [email or web address]) Nutritional Asmnt/Malnutrition Patient General Information Nutritional Screening High Risk Consult Diagnosis actute renal failure, sepsis, PNA Pertinent Medical Hx/Surgical Hx hyperlipidemia, CHF, HTN, COPD , ICD device Subjective Information Consult received for admit blood sugar 263. Pt seen sleeping in bed at the time of visit. Spoke with RN, pt refused breakfast this morning possible d/t weakness and being sick. Current Diet Order/ Nutrition Support low chlesterol 300gm Pertinent Medications glucagen, novolog, remeron, nacl 0.9% Pertinent Labs 11/15 Na 137, K 4.6, Cl 110, BUN 105, Cr 2.9, GLucose 295, POC 246-370 since admit, a1c 8.3, calcium 9.2 Nutritional Hx/Data Height 1.85 m Height (Calculated Centimeters) 185.4 Current Weight (lbs) 62.55 kg Weight (Calculated Kilograms) 62.6 Weight (Calculated Grams) 05491.4 [place] Body Weight 184 % [place] Body Weight 75 Body Mass Index (BMI) 18.1 Weight Status Underweight GI Symptoms GI Symptoms None Last BM no record Skin Integrity/Comment: pressure area to heels Current %PO Negligible < 25% Estimated Nutritional Goals Calories/Kcals/Kg 25-30 Kcals Calculated [id number] based on IBW considering underweight and sepsis Protein g/k-1.2 Protein Calculated 84-100 Fluid: ml 0-2508ml (1ml/kcal) Nutritional Problem 2. Problem Problem altered nutrition related lab values Etiology acute renal failure, hx of DM Signs/Symptoms: BUN 105, Cr 2.9, GLucose 295, POC 246-370, a1c 8.3, 1. Problem Problem increased nutrition needs ( calorie and protein) Etiology increased metabolic demand for healing and underweight Signs/Symptoms: dx of sepsis and PNA, BMI 18.2 Malnutrition Alert Protein-Calorie Malnutrition N/A Is there a minimum of two criteria No selected? Query Text:Check all the applicable criteria. A minimum of two criteria are recommended for diagnosis of either severe or non-severe malnutrition. Intervention/Recommendation Comments 1. Recommend modify diet to CCHO, low cholesteral diet for optimal glycemic control. RN made aware, will talk to MD 2. Monitor PO intake, wt, labs and skin integrity 3. F/U as high risk in 2-3 days, 11/18-11/19 Expected Outcomes/Goals Expected Outcomes/Goals 1. PO intake to meet at least 75% of nutritional needs. 2. Wt stability, skin to remain intact, labs to improve
--- NOTE | 2017-11-26 14:08 | General Progress Note ---
Subjective - Review of Systems Service Date: 11/26/17 Events since last encounter: New PEG placed today. Tube feed to start tonight. Objective - Results Result Diagrams: 11/24/17 05:50 11/26/17 08:05 Recent Labs: Laboratory Last Values WBC 23.5 Th/cmm (4.8-10.8) H* D 11/24/17 05:50 RBC 3.56 Mil/cmm (3.80-5.80) L 11/24/17 05:50 Hgb 10.7 gm/dL (12-16) L 11/24/17 05:50 Hct 31.5 % (41.0-60) L 11/24/17 05:50 MCV 88.5 fl (80-99) 11/24/17 05:50 MCH 30.2 pg (27.0-31.0) 11/24/17 05:50 MCHC Differential 34.1 pg (28.0-36.0) 11/24/17 05:50 RDW 13.8 % (11.5-20.0) 11/24/17 05:50 Plt Count 146 Th/cmm (150-400) L D 11/24/17 05:50 MPV 10.2 fl 11/24/17 05:50 Neutrophils % 94.7 % (40.0-80.0) H 11/17/17 07:45 Band Neutrophils % 6 % (0-10) 11/19/17 05:30 Lymphocytes % 3.7 % (20.0-50.0) L 11/17/17 07:45 Monocytes % 1.6 % (2.0-10.0) L 11/17/17 07:45 Eosinophils % 0.0 % (0.0-5.0) 11/17/17 07:45 Basophils % 0.0 % (0.0-2.0) 11/15/17 09:01 Neutrophils (Manual) 87 % (40-80) H 11/19/17 05:30 Lymphocytes 6 % (20-50) L 11/19/17 05:30 Monocytes 1 % (2-10) L 11/19/17 05:30 Platelet Estimate SLIGHT DECREASED (NORMAL) 11/19/17 05:30 PT 12.3 SECONDS (9.5-11.5) H 11/25/17 06:50 INR 1.17 (0.5-1.4) 11/25/17 06:50 Specimen Source Arterial 11/18/17 10:29 Sample Site Right Radial 11/18/17 10:29 pH 7.48 (7.35-7.45) H 11/18/17 10:29 pCO2 29.0 mmHg (35.0-45.0) L 11/18/17 10:29 pO2 81.0 mmHg (80.0-100.0) 11/18/17 10:29 HCO3 24.1 mEq/L (20.0-26.0) 11/18/17 10:29 Base Excess -1.0 mEq/L (-3.0-3.0) 11/18/17 10:29 O2 Saturation 97.0 % (92.0-100.0) 11/18/17 10:29 Mario Test PASS 11/18/17 10:29 Vent Rate NA 11/15/17 08:47 Inspired O2 28 11/18/17 10:29 Tidal Volume NA 11/15/17 08:47 PEEP NA 11/15/17 08:47 Pressure (ins/psv/peep) NA 11/15/17 08:47 Critical Value PW 11/18/17 10:29 Sodium 136 mEq/L (136-145) 11/26/17 08:05 Potassium 3.5 mEq/L (3.5-5.1) 11/26/17 08:05 Chloride 105 mEq/L (98-107) 11/26/17 08:05 Carbon Dioxide 29.5 mEq/L (21.0-31.0) 11/26/17 08:05 Anion Gap 5.0 (7.0-16.0) L 11/26/17 08:05 BUN 91 mg/dL (7-25) H* 11/26/17 08:05 Creatinine 1.3 mg/dL (0.7-1.3) 11/26/17 08:05 Est GFR ( Amer) TNP 11/26/17 08:05 Est GFR (Non-Af Amer) TNP 11/26/17 08:05 BUN/Creatinine Ratio 70.0 11/26/17 08:05 Glucose 72 mg/dL (70-105) 11/26/17 08:05 POC Glucose 73 MG/DL (70 - 105) 11/26/17 11:23 Hemoglobin A1c % 8.3 % (4.0-6.0) H 11/15/17 09:20 Whole Bld Lactic Acid 6.37 mmol/L (0.60-1.99) H* 11/15/17 11:20 Calcium 9.1 mg/dL (8.6-10.3) 11/26/17 08:05 Magnesium 2.3 mg/dL (1.9-2.7) 11/15/17 09:20 Total Bilirubin 0.3 mg/dL (0.3-1.0) 11/24/17 05:50 AST 18 U/L (13-39) 11/24/17 05:50 ALT 38 U/L (7-52) 11/24/17 05:50 Alkaline Phosphatase 63 U/L (34-104) 11/24/17 05:50 Troponin I 0.19 ng/mL (0.01-0.05) H* 11/15/17 09:01 B-Natriuretic Peptide 159.0 pg/mL (5.0-100.0) H 11/25/17 06:50 Total Protein 4.8 gm/dL (6.0-8.3) L 11/24/17 05:50 Albumin 2.2 gm/dL (4.2-5.5) L 11/24/17 05:50 Globulin 2.6 gm/dL 11/24/17 05:50 Albumin/Globulin Ratio 0.9 (1.0-1.8) L 11/24/17 05:50 Triglycerides 201 mg/dL (<150) H 11/15/17 09:20 Cholesterol 75 mg/dL (<200) 11/15/17 09:20 LDL Cholesterol Direct 8 mg/dL (75-193) L 11/15/17 09:20 HDL Cholesterol 9 mg/dL (23-92) L 11/15/17 09:20 TSH 0.75 uIU/ml (0.34-5.60) 11/15/17 09:20 Hepatitis A IgM Ab Negative (Negative) 11/17/17 17:40 Hep Bs Antigen Negative (Negative) 11/17/17 17:40 Hep B Core IgM Ab Negative (Negative) 11/17/17 17:40 Hepatitis C Antibody <0.1 s/co ratio (0.0-0.9) 11/17/17 17:40 - Physical Exam Vitals and I&O: Vital Signs Temp 97.7 F 11/26/17 11:58 Pulse 84 11/26/17 11:58 Resp 17 11/26/17 11:58 BP 130/65 11/26/17 11:58 Pulse Ox 97 11/26/17 11:58 Intake & Output 11/25/17 11/26/17 11/26/17 18:59 06:59 18:59 Intake Total 1350 1055.833 Output Total 1000 800 Balance 350 255.833 Weight (lbs) 83.915 kg 76.374 kg Intake: Intake, IV Amount 350 805.833 Levofloxacin 250mg/50mL 50 250 mg In Premix Fluid 1 bag @ 50 mls/hr IV Q24H [facility] Rx#:[id number] Linezolid 600mg/300mL 600 300 300 mg In 300 ml @ 200 mls/ hr IV Q12HR@0900,2100 [facility] Rx#:[id number] Sodium Chloride 0.45% 1, 505.833 000 ml @ 75 mls/hr IV . [id number] [facility] Rx#:[id number] TPN/PPN 480 Other 520 250 Output: Urine 1000 800 Other: # Bowel Movements 0 Active Medications: Current Medications Acetaminophen (Tylenol 650mg Supp) 650 mg RC Q4H PRN PRN Reason: Fever > 101 Stop: 01/14/18 12:49 Albuterol/Ipratropium (Duoneb Neb) 3 ml HHN Q4HRT [facility] Stop: 01/15/18 18:59 Last Admin: 11/26/17 11:09 Dose: 3 ml Amlodipine Besylate (Norvasc) 5 mg PO HS [facility] Stop: 01/14/18 20:59 Last Admin: 11/25/17 20:41 Dose: 5 mg Aspirin (Aspirin Chewable) 81 mg PO DAILY [facility] Stop: 01/15/18 08:59 Last Admin: 11/26/17 10:26 Dose: 81 mg Atorvastatin Calcium (Lipitor) 20 mg PO HS [facility] Stop: 01/14/18 22:59 Last Admin: 11/25/17 20:41 Dose: 20 mg Carvedilol (Coreg) 3.125 mg PO BID [facility] Stop: 01/14/18 16:59 Last Admin: 11/26/17 10:26 Dose: 3.125 mg Diltiazem HCl (Cardizem) 20 mg IVP Q4HR PRN PRN Reason: HR above 110 Stop: 01/23/18 08:24 Fluconazole (Diflucan) 100 mg PO DAILY [facility] Stop: 01/17/18 08:59 Last Admin: 11/26/17 10:26 Dose: 100 mg Glucagon (Glucagen) 1 mg IM PRN PRN PRN Reason: hypoglycemia Stop: 01/14/18 16:44 Diltiazem HCl 125 mg/ Dextrose 125 mls @ 10 mls/hr IV TITR [facility]; 10 MG/HR PRN Reason: Protocol Stop: 01/14/18 11:44 Last Titration: 11/16/17 03:00 Dose: 0 mg/hr, 0 mls/hr Cefepime HCl 1 gm/ Sodium (Chloride) 50 mls @ 100 mls/hr IV Q24HR [facility] Stop: 01/14/18 17:59 Last Admin: 11/25/17 17:57 Dose: 100 mls/hr Levofloxacin 250 mg/ (Miscellaneous) 50 mls @ 50 mls/hr IV Q24H [facility] Stop: 01/15/18 09:59 Last Admin: 11/26/17 12:16 Dose: 50 mls/hr Linezolid (Zyvox) 600 mg in 300 mls @ 200 mls/hr IV Q12HR@0900,2100 [facility] Stop: 01/16/18 11:59 Last Admin: 11/26/17 10:23 Dose: 200 mls/hr Sodium Chloride (Nacl 0.45%) 1,000 mls @ 75 mls/hr IV .[id number] [facility] Stop: 01/19/18 22:18 Last Admin: 11/26/17 03:32 Dose: 25 mls/hr Insulin Aspart (Novolog Insulin Sliding Scale) 0 units SUBQ ACHS [facility] PRN Reason: Protocol Stop: 01/15/18 07:29 Last Admin: 11/26/17 11:25 Dose: Not Given Insulin Detemir (Levemir Insulin) 14 units SUBQ BID [facility] PRN Reason: Protocol Stop: 01/20/18 16:59 Last Admin: 11/26/17 10:37 Dose: Not Given Methylprednisolone Sodium Succinate (Solu-Medrol) 20 mg IVP DAILY [facility] Stop: 01/24/18 08:59 Last Admin: 11/26/17 10:25 Dose: 20 mg Mirtazapine (Remeron) 30 mg PO HS [facility] Stop: 01/14/18 22:59 Last Admin: 11/25/17 20:42 Dose: 30 mg Miscellaneous (Probiotic Screen) 1 ea MC PRN PRN PRN Reason: PROTOCOL Stop: 01/19/18 16:29 Neomycin/Polymyxin/Bacitracin (Triple Antibiotic Ointment) 1 appl TP DAILY [facility] Stop: 01/15/18 08:59 Last Admin: 11/26/17 10:39 Dose: 1 appl Olanzapine (Zyprexa) 10 mg PO TID [facility] PRN Reason: Protocol Stop: 01/14/18 20:59 Last Admin: 11/26/17 13:26 Dose: 10 mg Pantoprazole Sodium (Protonix) 40 mg PO DAILY [facility] Stop: 01/15/18 08:59 Last Admin: 11/26/17 10:26 Dose: 40 mg Rivaroxaban (Xarelto) 5 mg PO DAILY [facility] Stop: 01/21/18 15:59 Last Admin: 11/26/17 10:38 Dose: Not Given General: Alert, Other (confused) HEENT: PERRLA Neck: Supple Cardiovascular: Regular rate, Other (multiple PVC) Lungs: Other (rhonchi) Abdomen: Bowel sounds, Soft (+Gtube) Psych/Mental Status: Other (lethargic) - Procedures Procedures: Procedures Procedure Code Date INSERT TUNNELED CV CATH [id number] 11/15/17 INSERTION OF INFUSION DEV INTO R SUBCLAV VEIN, PERC APPROACH [id number] 11/15/17 Assessment/Plan - Problem List Patient Problems: All Active Problems SEVERE RESPIRATORY DISTRESS (Acute) - Assessment Assessment: 1.PNEUMONIA. 2.COPD. 3.A FIB. 4.DEMENTIA. 5.PENNY. secondary to ATN. Patient was on Hemodialysis until last week but now stopped and Matthew removed. Serum Creat improved. Adequate urine out put. 6.Elevated BUN Likely due to high dose steroids. Steroid is on huber down. - Plan Plan: + Monitor BUN/Cr and UO. Nutritional Asmnt/Malnutr-PDOC - Dietary Evaluation Malnutrition Findings (Please click <Entered> for more info): Nutritional Asmnt/Malnutrition Start: 11/16/17 14: 06 Text: Status: Complete Freq: Document 11/16/17 14:06 LISA (Rec: 11/16/17 14:20 [email or web address]) Nutritional Asmnt/Malnutrition Patient General Information Nutritional Screening High Risk Consult Diagnosis actute renal failure, sepsis, PNA Pertinent Medical Hx/Surgical Hx hyperlipidemia, CHF, HTN, COPD , ICD device Subjective Information Consult received for admit blood sugar 263. Pt seen sleeping in bed at the time of visit. Spoke with RN, pt refused breakfast this morning possible d/t weakness and being sick. Current Diet Order/ Nutrition Support low chlesterol 300gm Pertinent Medications glucagen, novolog, remeron, nacl 0.9% Pertinent Labs 11/15 Na 137, K 4.6, Cl 110, BUN 105, Cr 2.9, GLucose 295, POC 246-370 since admit, a1c 8.3, calcium 9.2 Nutritional Hx/Data Height 1.85 m Height (Calculated Centimeters) 185.4 Current Weight (lbs) 62.55 kg Weight (Calculated Kilograms) 62.6 Weight (Calculated Grams) 61997.4 [place] Body Weight 184 % [place] Body Weight 75 Body Mass Index (BMI) 18.1 Weight Status Underweight GI Symptoms GI Symptoms None Last BM no record Skin Integrity/Comment: pressure area to heels Current %PO Negligible < 25% Estimated Nutritional Goals Calories/Kcals/Kg 25-30 Kcals Calculated 5036-6597 based on IBW considering underweight and sepsis Protein g/k-1.2 Protein Calculated 84-100 Fluid: ml 2089-2508ml (1ml/kcal) Nutritional Problem 2. Problem Problem altered nutrition related lab values Etiology acute renal failure, hx of DM Signs/Symptoms: BUN 105, Cr 2.9, GLucose 295, POC 246-370, a1c 8.3, 1. Problem Problem increased nutrition needs ( calorie and protein) Etiology increased metabolic demand for healing and underweight Signs/Symptoms: dx of sepsis and PNA, BMI 18.2 Malnutrition Alert Protein-Calorie Malnutrition N/A Is there a minimum of two criteria No selected? Query Text:Check all the applicable criteria. A minimum of two criteria are recommended for diagnosis of either severe or non-severe malnutrition. Intervention/Recommendation Comments 1. Recommend modify diet to CCHO, low cholesteral diet for optimal glycemic control. RN made aware, will talk to MD 2. Monitor PO intake, wt, labs and skin integrity 3. F/U as high risk in 2-3 days, 11/18-11/19 Expected Outcomes/Goals Expected Outcomes/Goals 1. PO intake to meet at least 75% of nutritional needs. 2. Wt stability, skin to remain intact, labs to improve
[2017-11-26] MEDS: Cefepime 1 GM in Sodium Chloride 0.9% 50 ML IV SCH (17:59)
[2017-11-26] MEDS: Venelex 60gm Tube TP SCH (18:04)
[2017-11-26] MEDS: Atorvastatin Calcium 10 MG TAB PO SCH (21:22)
[2017-11-27] MEDS: Albuterol/Ipratropium Neb 3 ML AERS HHN SCH ×6 (02:51→23:18)
[2017-11-27] MEDS: INSULIN ASPART SLIDING SCALE 100 UNITS/ML UNIT SUBQ SCH ×5 (03:38→21:40)
--- NOTE | 2017-11-27 08:30 | Diagnostic Imaging Report ---
Portable chest x-ray Time: 0808 hours History: Evidence of breath Allowing for portable technique the heart size is normal. No focal pulmonary parenchymal processes. No hilar or mediastinal abnormalities. Impression: No acute abnormalities.
--- NOTE | 2017-11-27 08:43 | GI Progress Note ---
Subjective - Review of Systems Service Date: 11/27/17 Subjective: G tube placed 11/26/17. Objective - Results Result Diagrams: 11/24/17 05:50 11/26/17 08:05 Recent Labs: Laboratory Last Values WBC 23.5 Th/cmm (4.8-10.8) H* D 11/24/17 05:50 RBC 3.56 Mil/cmm (3.80-5.80) L 11/24/17 05:50 Hgb 10.7 gm/dL (12-16) L 11/24/17 05:50 Hct 31.5 % (41.0-60) L 11/24/17 05:50 MCV 88.5 fl (80-99) 11/24/17 05:50 MCH 30.2 pg (27.0-31.0) 11/24/17 05:50 MCHC Differential 34.1 pg (28.0-36.0) 11/24/17 05:50 RDW 13.8 % (11.5-20.0) 11/24/17 05:50 Plt Count 146 Th/cmm (150-400) L D 11/24/17 05:50 MPV 10.2 fl 11/24/17 05:50 Neutrophils % 94.7 % (40.0-80.0) H 11/17/17 07:45 Band Neutrophils % 6 % (0-10) 11/19/17 05:30 Lymphocytes % 3.7 % (20.0-50.0) L 11/17/17 07:45 Monocytes % 1.6 % (2.0-10.0) L 11/17/17 07:45 Eosinophils % 0.0 % (0.0-5.0) 11/17/17 07:45 Basophils % 0.0 % (0.0-2.0) 11/15/17 09:01 Neutrophils (Manual) 87 % (40-80) H 11/19/17 05:30 Lymphocytes 6 % (20-50) L 11/19/17 05:30 Monocytes 1 % (2-10) L 11/19/17 05:30 Platelet Estimate SLIGHT DECREASED (NORMAL) 11/19/17 05:30 PT 12.3 SECONDS (9.5-11.5) H 11/25/17 06:50 INR 1.17 (0.5-1.4) 11/25/17 06:50 Specimen Source Arterial 11/18/17 10:29 Sample Site Right Radial 11/18/17 10:29 pH 7.48 (7.35-7.45) H 11/18/17 10:29 pCO2 29.0 mmHg (35.0-45.0) L 11/18/17 10:29 pO2 81.0 mmHg (80.0-100.0) 11/18/17 10:29 HCO3 24.1 mEq/L (20.0-26.0) 11/18/17 10:29 Base Excess -1.0 mEq/L (-3.0-3.0) 11/18/17 10:29 O2 Saturation 97.0 % (92.0-100.0) 11/18/17 10:29 Mario Test PASS 11/18/17 10:29 Vent Rate NA 11/15/17 08:47 Inspired O2 28 11/18/17 10:29 Tidal Volume NA 11/15/17 08:47 PEEP NA 11/15/17 08:47 Pressure (ins/psv/peep) NA 11/15/17 08:47 Critical Value PW 11/18/17 10:29 Sodium 136 mEq/L (136-145) 11/26/17 08:05 Potassium 3.5 mEq/L (3.5-5.1) 11/26/17 08:05 Chloride 105 mEq/L (98-107) 11/26/17 08:05 Carbon Dioxide 29.5 mEq/L (21.0-31.0) 11/26/17 08:05 Anion Gap 5.0 (7.0-16.0) L 11/26/17 08:05 BUN 91 mg/dL (7-25) H* 11/26/17 08:05 Creatinine 1.3 mg/dL (0.7-1.3) 11/26/17 08:05 Est GFR ( Amer) TNP 11/26/17 08:05 Est GFR (Non-Af Amer) TNP 11/26/17 08:05 BUN/Creatinine Ratio 70.0 11/26/17 08:05 Glucose 72 mg/dL (70-105) 11/26/17 08:05 POC Glucose 191 MG/DL (70 - 105) H 11/27/17 06:07 Hemoglobin A1c % 8.3 % (4.0-6.0) H 11/15/17 09:20 Whole Bld Lactic Acid 6.37 mmol/L (0.60-1.99) H* 11/15/17 11:20 Calcium 9.1 mg/dL (8.6-10.3) 11/26/17 08:05 Magnesium 2.3 mg/dL (1.9-2.7) 11/15/17 09:20 Total Bilirubin 0.3 mg/dL (0.3-1.0) 11/24/17 05:50 AST 18 U/L (13-39) 11/24/17 05:50 ALT 38 U/L (7-52) 11/24/17 05:50 Alkaline Phosphatase 63 U/L (34-104) 11/24/17 05:50 Troponin I 0.19 ng/mL (0.01-0.05) H* 11/15/17 09:01 B-Natriuretic Peptide 159.0 pg/mL (5.0-100.0) H 11/25/17 06:50 Total Protein 4.8 gm/dL (6.0-8.3) L 11/24/17 05:50 Albumin 2.2 gm/dL (4.2-5.5) L 11/24/17 05:50 Globulin 2.6 gm/dL 11/24/17 05:50 Albumin/Globulin Ratio 0.9 (1.0-1.8) L 11/24/17 05:50 Triglycerides 201 mg/dL (<150) H 11/15/17 09:20 Cholesterol 75 mg/dL (<200) 11/15/17 09:20 LDL Cholesterol Direct 8 mg/dL (75-193) L 11/15/17 09:20 HDL Cholesterol 9 mg/dL (23-92) L 11/15/17 09:20 TSH 0.75 uIU/ml (0.34-5.60) 11/15/17 09:20 Hepatitis A IgM Ab Negative (Negative) 11/17/17 17:40 Hep Bs Antigen Negative (Negative) 11/17/17 17:40 Hep B Core IgM Ab Negative (Negative) 11/17/17 17:40 Hepatitis C Antibody <0.1 s/co ratio (0.0-0.9) 11/17/17 17:40 - Physical Exam Vitals and I&O: Vital Signs Temp 97.7 F 11/27/17 07:48 Pulse 92 11/27/17 07:48 Resp 20 11/27/17 07:48 BP 152/81 11/27/17 07:48 Pulse Ox 98 11/27/17 07:48 Intake & Output 11/26/17 11/27/17 11/27/17 18:59 06:59 18:59 Intake Total 910 400 Output Total 1250 600 Balance -340 -200 Weight (lbs) 76.374 kg 78.018 kg Intake: Intake, IV Amount 300 Linezolid 600mg/300mL 600 300 mg In 300 ml @ 200 mls/ hr IV Q12HR@0900,2100 [facility] Rx#:[id number] Oral 0 Tube Feeding 10 400 Other 600 Output: Urine 1250 600 Other: # Bowel Movements 0 Active Medications: Current Medications Acetaminophen (Tylenol 650mg Supp) 650 mg RC Q4H PRN PRN Reason: Fever > 101 Stop: 01/14/18 12:49 Albuterol/Ipratropium (Duoneb Neb) 3 ml HHN Q4HRT [facility] Stop: 01/15/18 18:59 Last Admin: 11/27/17 07:42 Dose: 3 ml Amlodipine Besylate (Norvasc) 5 mg PO HS [facility] Stop: 01/14/18 20:59 Last Admin: 11/26/17 21:22 Dose: 5 mg Aspirin (Aspirin Chewable) 81 mg PO DAILY [facility] Stop: 01/15/18 08:59 Last Admin: 11/26/17 10:26 Dose: 81 mg Atorvastatin Calcium (Lipitor) 20 mg PO HS [facility] Stop: 01/14/18 22:59 Last Admin: 11/26/17 21:22 Dose: 20 mg Carvedilol (Coreg) 3.125 mg PO BID [facility] Stop: 01/14/18 16:59 Last Admin: 11/26/17 17:26 Dose: 3.125 mg [place] Oil/[place] Balsam/Trypsin (Venelex) 1 appl TP DAILY [facility] Stop: 01/25/18 15:44 Last Admin: 11/26/17 18:04 Dose: 1 appl Diltiazem HCl (Cardizem) 20 mg IVP Q4HR PRN PRN Reason: HR above 110 Stop: 01/23/18 08:24 Fluconazole (Diflucan) 100 mg PO DAILY [facility] Stop: 01/17/18 08:59 Last Admin: 11/26/17 10:26 Dose: 100 mg Glucagon (Glucagen) 1 mg IM PRN PRN PRN Reason: hypoglycemia Stop: 01/14/18 16:44 Diltiazem HCl 125 mg/ Dextrose 125 mls @ 10 mls/hr IV TITR [facility]; 10 MG/HR PRN Reason: Protocol Stop: 01/14/18 11:44 Last Titration: 11/16/17 03:00 Dose: 0 mg/hr, 0 mls/hr Cefepime HCl 1 gm/ Sodium (Chloride) 50 mls @ 100 mls/hr IV Q24HR [facility] Stop: 01/14/18 17:59 Last Admin: 11/26/17 17:59 Dose: 100 mls/hr Levofloxacin 250 mg/ (Miscellaneous) 50 mls @ 50 mls/hr IV Q24H [facility] Stop: 01/15/18 09:59 Last Admin: 11/26/17 12:16 Dose: 50 mls/hr Linezolid (Zyvox) 600 mg in 300 mls @ 200 mls/hr IV Q12HR@0900,2100 [facility] Stop: 01/16/18 11:59 Last Admin: 11/26/17 21:21 Dose: 200 mls/hr Sodium Chloride (Nacl 0.45%) 1,000 mls @ 75 mls/hr IV .[id number] [facility] Stop: 01/19/18 22:18 Last Admin: 11/26/17 03:32 Dose: 25 mls/hr Insulin Aspart (Novolog Insulin Sliding Scale) 0 units SUBQ ACHS [facility] PRN Reason: Protocol Stop: 01/15/18 07:29 Last Admin: 11/27/17 06:30 Dose: 3 units Insulin Detemir (Levemir Insulin) 14 units SUBQ BID [facility] PRN Reason: Protocol Stop: 01/20/18 16:59 Last Admin: 11/26/17 18:09 Dose: Not Given Methylprednisolone Sodium Succinate (Solu-Medrol) 20 mg IVP DAILY [facility] Stop: 01/24/18 08:59 Last Admin: 11/26/17 10:25 Dose: 20 mg Mirtazapine (Remeron) 30 mg PO HS [facility] Stop: 01/14/18 22:59 Last Admin: 11/26/17 21:22 Dose: 30 mg Miscellaneous (Probiotic Screen) 1 ea MC PRN PRN PRN Reason: PROTOCOL Stop: 01/19/18 16:29 Neomycin/Polymyxin/Bacitracin (Triple Antibiotic Ointment) 1 appl TP DAILY [facility] Stop: 01/15/18 08:59 Last Admin: 11/26/17 10:39 Dose: 1 appl Olanzapine (Zyprexa) 10 mg PO TID [facility] PRN Reason: Protocol Stop: 01/14/18 20:59 Last Admin: 11/26/17 21:21 Dose: 10 mg Pantoprazole Sodium (Protonix) 40 mg PO DAILY [facility] Stop: 01/15/18 08:59 Last Admin: 11/26/17 10:26 Dose: 40 mg Rivaroxaban (Xarelto) 5 mg PO DAILY [facility] Stop: 01/21/18 15:59 Last Admin: 11/26/17 10:38 Dose: Not Given General: Alert, Other (confused) HEENT: Atraumatic, PERRLA Neck: Supple Cardiovascular: Regular rate, Other (multiple PVC) Lungs: Other (rhonchi) Abdomen: Bowel sounds, Soft (+Gtube), Obese, Other (G tube site c/d/i) Extremities: Edema Psych/Mental Status: Other (lethargic) - Procedures Procedures: Procedures Procedure Code Date INSERT TUNNELED CV CATH [id number] 11/15/17 INSERTION OF INFUSION DEV INTO R SUBCLAV VEIN, PERC APPROACH [id number] 11/15/17 Assessment/Plan - Problem List Patient Problems: All Active Problems SEVERE RESPIRATORY DISTRESS (Acute) - Assessment Assessment: # CHF # CAD # Afib on xeralto # CKD # Sepsis # Dementia vs delirium G tube placed on 11/26/17, and pt tolerating feeds at 40cc/hr. Xeralto can be restarted today. Plan: - cont G tube feeding, titrate to goal rate - hold for residuals > 150cc - flush G tube with 100cc every 6 hours - restart home dose xeralto - antibiotics as per primary
[2017-11-27] MEDS: methylPREDNISolone SS 40 mg Vial IVP SCH (09:26)
[2017-11-27] MEDS: Aspirin 81mg Chewable Tab PO SCH (09:27)
[2017-11-27] MEDS: Pantoprazole 40 mg EC Tab PO SCH (09:27)
[2017-11-27] MEDS: Linezolid 600mg/300mL 600 MG/300 ML BAG IV SCH ×2 (09:28→21:23)
[2017-11-27] MEDS: Triple Antibiotic Ointment 28gm tube TP SCH (09:40)
[2017-11-27] MEDS: Venelex 60gm Tube TP SCH (09:41)
[2017-11-27] MEDS: Insulin Detemir 100 units/mL 10mL Vial SUBQ SCH ×2 (09:43→17:18)
[2017-11-27] MEDS: Levofloxacin 250mg/50mL 250 MG in Premix Fluid 1 BAG IV SCH (12:00)
--- NOTE | 2017-11-27 15:40 | General Progress Note ---
Subjective - Review of Systems Service Date: 11/27/17 Subjective: awake and alert no distress Objective - Results Result Diagrams: 11/24/17 05:50 11/26/17 08:05 Recent Labs: Laboratory Last Values WBC 23.5 Th/cmm (4.8-10.8) H* D 11/24/17 05:50 RBC 3.56 Mil/cmm (3.80-5.80) L 11/24/17 05:50 Hgb 10.7 gm/dL (12-16) L 11/24/17 05:50 Hct 31.5 % (41.0-60) L 11/24/17 05:50 MCV 88.5 fl (80-99) 11/24/17 05:50 MCH 30.2 pg (27.0-31.0) 11/24/17 05:50 MCHC Differential 34.1 pg (28.0-36.0) 11/24/17 05:50 RDW 13.8 % (11.5-20.0) 11/24/17 05:50 Plt Count 146 Th/cmm (150-400) L D 11/24/17 05:50 MPV 10.2 fl 11/24/17 05:50 Neutrophils % 94.7 % (40.0-80.0) H 11/17/17 07:45 Band Neutrophils % 6 % (0-10) 11/19/17 05:30 Lymphocytes % 3.7 % (20.0-50.0) L 11/17/17 07:45 Monocytes % 1.6 % (2.0-10.0) L 11/17/17 07:45 Eosinophils % 0.0 % (0.0-5.0) 11/17/17 07:45 Basophils % 0.0 % (0.0-2.0) 11/15/17 09:01 Neutrophils (Manual) 87 % (40-80) H 11/19/17 05:30 Lymphocytes 6 % (20-50) L 11/19/17 05:30 Monocytes 1 % (2-10) L 11/19/17 05:30 Platelet Estimate SLIGHT DECREASED (NORMAL) 11/19/17 05:30 PT 12.3 SECONDS (9.5-11.5) H 11/25/17 06:50 INR 1.17 (0.5-1.4) 11/25/17 06:50 Specimen Source Arterial 11/18/17 10:29 Sample Site Right Radial 11/18/17 10:29 pH 7.48 (7.35-7.45) H 11/18/17 10:29 pCO2 29.0 mmHg (35.0-45.0) L 11/18/17 10:29 pO2 81.0 mmHg (80.0-100.0) 11/18/17 10:29 HCO3 24.1 mEq/L (20.0-26.0) 11/18/17 10:29 Base Excess -1.0 mEq/L (-3.0-3.0) 11/18/17 10:29 O2 Saturation 97.0 % (92.0-100.0) 11/18/17 10:29 Mario Test PASS 11/18/17 10:29 Vent Rate NA 11/15/17 08:47 Inspired O2 28 11/18/17 10:29 Tidal Volume NA 11/15/17 08:47 PEEP NA 11/15/17 08:47 Pressure (ins/psv/peep) NA 11/15/17 08:47 Critical Value PW 11/18/17 10:29 Sodium 136 mEq/L (136-145) 11/26/17 08:05 Potassium 3.5 mEq/L (3.5-5.1) 11/26/17 08:05 Chloride 105 mEq/L (98-107) 11/26/17 08:05 Carbon Dioxide 29.5 mEq/L (21.0-31.0) 11/26/17 08:05 Anion Gap 5.0 (7.0-16.0) L 11/26/17 08:05 BUN 91 mg/dL (7-25) H* 11/26/17 08:05 Creatinine 1.3 mg/dL (0.7-1.3) 11/26/17 08:05 Est GFR ( Amer) TNP 11/26/17 08:05 Est GFR (Non-Af Amer) TNP 11/26/17 08:05 BUN/Creatinine Ratio 70.0 11/26/17 08:05 Glucose 72 mg/dL (70-105) 11/26/17 08:05 POC Glucose 194 MG/DL (70 - 105) H 11/27/17 12:03 Hemoglobin A1c % 8.3 % (4.0-6.0) H 11/15/17 09:20 Whole Bld Lactic Acid 6.37 mmol/L (0.60-1.99) H* 11/15/17 11:20 Calcium 9.1 mg/dL (8.6-10.3) 11/26/17 08:05 Magnesium 2.3 mg/dL (1.9-2.7) 11/15/17 09:20 Total Bilirubin 0.3 mg/dL (0.3-1.0) 11/24/17 05:50 AST 18 U/L (13-39) 11/24/17 05:50 ALT 38 U/L (7-52) 11/24/17 05:50 Alkaline Phosphatase 63 U/L (34-104) 11/24/17 05:50 Troponin I 0.19 ng/mL (0.01-0.05) H* 11/15/17 09:01 B-Natriuretic Peptide 159.0 pg/mL (5.0-100.0) H 11/25/17 06:50 Total Protein 4.8 gm/dL (6.0-8.3) L 11/24/17 05:50 Albumin 2.2 gm/dL (4.2-5.5) L 11/24/17 05:50 Globulin 2.6 gm/dL 11/24/17 05:50 Albumin/Globulin Ratio 0.9 (1.0-1.8) L 11/24/17 05:50 Triglycerides 201 mg/dL (<150) H 11/15/17 09:20 Cholesterol 75 mg/dL (<200) 11/15/17 09:20 LDL Cholesterol Direct 8 mg/dL (75-193) L 11/15/17 09:20 HDL Cholesterol 9 mg/dL (23-92) L 11/15/17 09:20 TSH 0.75 uIU/ml (0.34-5.60) 11/15/17 09:20 Hepatitis A IgM Ab Negative (Negative) 11/17/17 17:40 Hep Bs Antigen Negative (Negative) 11/17/17 17:40 Hep B Core IgM Ab Negative (Negative) 11/17/17 17:40 Hepatitis C Antibody <0.1 s/co ratio (0.0-0.9) 11/17/17 17:40 - Physical Exam Vitals and I&O: Vital Signs Temp 97.4 F 11/27/17 12:00 Pulse 77 11/27/17 14:46 Resp 14 11/27/17 14:46 BP 123/69 11/27/17 12:00 Pulse Ox 98 11/27/17 14:46 Intake & Output 11/26/17 11/27/17 11/27/17 18:59 06:59 18:59 Intake Total 960 400 Output Total 1250 600 Balance -290 -200 Weight (lbs) 76.374 kg 78.018 kg Intake: Intake, IV Amount 350 0 Levofloxacin 250mg/50mL 50 250 mg In Premix Fluid 1 bag @ 50 mls/hr IV Q24H [facility] Rx#:[id number] Linezolid 600mg/300mL 600 300 0 mg In 300 ml @ 200 mls/ hr IV Q12HR@0900,2100 [facility] Rx#:[id number] Oral 0 Tube Feeding 10 400 Other 600 Output: Urine 1250 600 Other: # Bowel Movements 0 Active Medications: Current Medications Acetaminophen (Tylenol 650mg Supp) 650 mg RC Q4H PRN PRN Reason: Fever > 101 Stop: 01/14/18 12:49 Albuterol/Ipratropium (Duoneb Neb) 3 ml HHN Q4HRT [facility] Stop: 01/15/18 18:59 Last Admin: 11/27/17 14:42 Dose: 3 ml Amlodipine Besylate (Norvasc) 5 mg PO HS [facility] Stop: 01/14/18 20:59 Last Admin: 11/26/17 21:22 Dose: 5 mg Aspirin (Aspirin Chewable) 81 mg PO DAILY [facility] Stop: 01/15/18 08:59 Last Admin: 11/27/17 09:27 Dose: 81 mg Atorvastatin Calcium (Lipitor) 20 mg PO HS [facility] Stop: 01/14/18 22:59 Last Admin: 11/26/17 21:22 Dose: 20 mg Carvedilol (Coreg) 3.125 mg PO BID [facility] Stop: 01/14/18 16:59 Last Admin: 11/27/17 09:27 Dose: 3.125 mg [place] Oil/[place] Balsam/Trypsin (Venelex) 1 appl TP DAILY [facility] Stop: 01/25/18 15:44 Last Admin: 11/27/17 09:41 Dose: 1 appl Diltiazem HCl (Cardizem) 20 mg IVP Q4HR PRN PRN Reason: HR above 110 Stop: 01/23/18 08:24 Fluconazole (Diflucan) 100 mg PO DAILY [facility] Stop: 01/17/18 08:59 Last Admin: 11/27/17 09:27 Dose: 100 mg Glucagon (Glucagen) 1 mg IM PRN PRN PRN Reason: hypoglycemia Stop: 01/14/18 16:44 Diltiazem HCl 125 mg/ Dextrose 125 mls @ 10 mls/hr IV TITR [facility]; 10 MG/HR PRN Reason: Protocol Stop: 01/14/18 11:44 Last Titration: 11/16/17 03:00 Dose: 0 mg/hr, 0 mls/hr Cefepime HCl 1 gm/ Sodium (Chloride) 50 mls @ 100 mls/hr IV Q24HR [facility] Stop: 01/14/18 17:59 Last Admin: 11/26/17 17:59 Dose: 100 mls/hr Levofloxacin 250 mg/ (Miscellaneous) 50 mls @ 50 mls/hr IV Q24H [facility] Stop: 01/15/18 09:59 Last Admin: 11/27/17 12:00 Dose: 50 mls/hr Linezolid (Zyvox) 600 mg in 300 mls @ 200 mls/hr IV Q12HR@0900,2100 [facility] Stop: 01/16/18 11:59 Last Admin: 11/27/17 09:28 Dose: 200 mls/hr Sodium Chloride (Nacl 0.45%) 1,000 mls @ 75 mls/hr IV .[id number] [facility] Stop: 01/19/18 22:18 Last Admin: 11/26/17 03:32 Dose: 25 mls/hr Insulin Aspart (Novolog Insulin Sliding Scale) 0 units SUBQ ACHS [facility] PRN Reason: Protocol Stop: 01/15/18 07:29 Last Admin: 11/27/17 12:18 Dose: 3 units Insulin Detemir (Levemir Insulin) 14 units SUBQ BID [facility] PRN Reason: Protocol Stop: 01/20/18 16:59 Last Admin: 11/27/17 09:43 Dose: 14 units Methylprednisolone Sodium Succinate (Solu-Medrol) 20 mg IVP DAILY [facility] Stop: 01/24/18 08:59 Last Admin: 11/27/17 09:26 Dose: 20 mg Mirtazapine (Remeron) 30 mg PO HS [facility] Stop: 01/14/18 22:59 Last Admin: 11/26/17 21:22 Dose: 30 mg Miscellaneous (Probiotic Screen) 1 ea MC PRN PRN PRN Reason: PROTOCOL Stop: 01/19/18 16:29 Neomycin/Polymyxin/Bacitracin (Triple Antibiotic Ointment) 1 appl TP DAILY [facility] Stop: 01/15/18 08:59 Last Admin: 11/27/17 09:40 Dose: 1 appl Olanzapine (Zyprexa) 10 mg PO TID [facility] PRN Reason: Protocol Stop: 01/14/18 20:59 Last Admin: 11/27/17 15:05 Dose: 10 mg Pantoprazole Sodium (Protonix) 40 mg PO DAILY [facility] Stop: 01/15/18 08:59 Last Admin: 11/27/17 09:27 Dose: 40 mg Rivaroxaban (Xarelto) 5 mg PO DAILY [facility] Stop: 01/21/18 15:59 Last Admin: 11/27/17 09:27 Dose: 5 mg General: Alert, Other (confused) HEENT: Atraumatic, PERRLA Neck: Supple Cardiovascular: Regular rate, Other (multiple PVC) Lungs: Other (rhonchi) Abdomen: Bowel sounds, Soft (+Gtube), Obese, Other (G tube site c/d/i) Extremities: Edema Psych/Mental Status: Other (lethargic) - Procedures Procedures: Procedures Procedure Code Date INSERT TUNNELED CV CATH [id number] 11/15/17 INSERTION OF INFUSION DEV INTO R SUBCLAV VEIN, PERC APPROACH 39T352X 11/15/17 Assessment/Plan - Problem List Patient Problems: All Active Problems SEVERE RESPIRATORY DISTRESS (Acute) - Assessment Assessment: 1.PNEUMONIA. 2.COPD. 3.PAFIB 4.DEMENTIA. 5.PENNY. 6.DEHYDRATION. 7.DM 8.S/P GT PLACEMENT - Plan Plan: cont current treatment Nutritional Asmnt/Malnutr-PDOC - Dietary Evaluation Malnutrition Findings (Please click <Entered> for more info): Nutritional Asmnt/Malnutrition Start: 11/16/17 14: 06 Text: Status: Complete Freq: Document 11/16/17 14:06 LCHENG (Rec: 11/16/17 14:20 [email or web address]) Nutritional Asmnt/Malnutrition Patient General Information Nutritional Screening High Risk Consult Diagnosis actute renal failure, sepsis, PNA Pertinent Medical Hx/Surgical Hx hyperlipidemia, CHF, HTN, COPD , ICD device Subjective Information Consult received for admit blood sugar 263. Pt seen sleeping in bed at the time of visit. Spoke with RN, pt refused breakfast this morning possible d/t weakness and being sick. Current Diet Order/ Nutrition Support low chlesterol 300gm Pertinent Medications glucagen, novolog, remeron, nacl 0.9% Pertinent Labs 11/15 Na 137, K 4.6, Cl 110, BUN 105, Cr 2.9, GLucose 295, POC 246-370 since admit, a1c 8.3, calcium 9.2 Nutritional Hx/Data Height 1.85 m Height (Calculated Centimeters) 185.4 Current Weight (lbs) 62.55 kg Weight (Calculated Kilograms) 62.6 Weight (Calculated Grams) 72048.4 [place] Body Weight 184 % [place] Body Weight 75 Body Mass Index (BMI) 18.1 Weight Status Underweight GI Symptoms GI Symptoms None Last BM no record Skin Integrity/Comment: pressure area to heels Current %PO Negligible < 25% Estimated Nutritional Goals Calories/Kcals/Kg 25-30 Kcals Calculated [id number] based on IBW considering underweight and sepsis Protein g/k-1.2 Protein Calculated 84-100 Fluid: ml 2089-250ml (1ml/kcal) Nutritional Problem 2. Problem Problem altered nutrition related lab values Etiology acute renal failure, hx of DM Signs/Symptoms: BUN 105, Cr 2.9, GLucose 295, POC 246-370, a1c 8.3, 1. Problem Problem increased nutrition needs ( calorie and protein) Etiology increased metabolic demand for healing and underweight Signs/Symptoms: dx of sepsis and PNA, BMI 18.2 Malnutrition Alert Protein-Calorie Malnutrition N/A Is there a minimum of two criteria No selected? Query Text:Check all the applicable criteria. A minimum of two criteria are recommended for diagnosis of either severe or non-severe malnutrition. Intervention/Recommendation Comments 1. Recommend modify diet to CCHO, low cholesteral diet for optimal glycemic control. RN made aware, will talk to MD 2. Monitor PO intake, wt, labs and skin integrity 3. F/U as high risk in 2-3 days, 11/18-11/19 Expected Outcomes/Goals Expected Outcomes/Goals 1. PO intake to meet at least 75% of nutritional needs. 2. Wt stability, skin to remain intact, labs to improve
[2017-11-27] MEDS: Atorvastatin Calcium 10 MG TAB PO SCH (21:23)
[2017-11-27] MEDS: Sodium Chloride 0.45% 1,000 ML IV SCH (21:46)
[2017-11-28] MEDS: Albuterol/Ipratropium Neb 3 ML AERS HHN SCH ×5 (03:35→18:32)
[2017-11-28] MEDS: INSULIN ASPART SLIDING SCALE 100 UNITS/ML UNIT SUBQ SCH ×4 (07:23→23:03)
[2017-11-28] MEDS: Linezolid 600mg/300mL 600 MG/300 ML BAG IV SCH ×2 (08:09→22:49)
[2017-11-28] MEDS: Pantoprazole 40 mg EC Tab PO SCH (08:12)
[2017-11-28] MEDS: methylPREDNISolone SS 40 mg Vial IVP SCH (08:12)
[2017-11-28] MEDS: Aspirin 81mg Chewable Tab PO SCH (08:12)
[2017-11-28] MEDS: Venelex 60gm Tube TP SCH (08:14)
[2017-11-28] MEDS: Triple Antibiotic Ointment 28gm tube TP SCH (08:15)
[2017-11-28] MEDS: Insulin Detemir 100 units/mL 10mL Vial SUBQ SCH ×2 (08:18→17:24)
--- NOTE | 2017-11-28 08:47 | GI Progress Note ---
Subjective - Review of Systems Service Date: 11/28/17 Subjective: No new events Objective - Results Result Diagrams: 11/24/17 05:50 11/26/17 08:05 Recent Labs: Laboratory Last Values WBC 23.5 Th/cmm (4.8-10.8) H* D 11/24/17 05:50 RBC 3.56 Mil/cmm (3.80-5.80) L 11/24/17 05:50 Hgb 10.7 gm/dL (12-16) L 11/24/17 05:50 Hct 31.5 % (41.0-60) L 11/24/17 05:50 MCV 88.5 fl (80-99) 11/24/17 05:50 MCH 30.2 pg (27.0-31.0) 11/24/17 05:50 MCHC Differential 34.1 pg (28.0-36.0) 11/24/17 05:50 RDW 13.8 % (11.5-20.0) 11/24/17 05:50 Plt Count 146 Th/cmm (150-400) L D 11/24/17 05:50 MPV 10.2 fl 11/24/17 05:50 Neutrophils % 94.7 % (40.0-80.0) H 11/17/17 07:45 Band Neutrophils % 6 % (0-10) 11/19/17 05:30 Lymphocytes % 3.7 % (20.0-50.0) L 11/17/17 07:45 Monocytes % 1.6 % (2.0-10.0) L 11/17/17 07:45 Eosinophils % 0.0 % (0.0-5.0) 11/17/17 07:45 Basophils % 0.0 % (0.0-2.0) 11/15/17 09:01 Neutrophils (Manual) 87 % (40-80) H 11/19/17 05:30 Lymphocytes 6 % (20-50) L 11/19/17 05:30 Monocytes 1 % (2-10) L 11/19/17 05:30 Platelet Estimate SLIGHT DECREASED (NORMAL) 11/19/17 05:30 PT 12.3 SECONDS (9.5-11.5) H 11/25/17 06:50 INR 1.17 (0.5-1.4) 11/25/17 06:50 Specimen Source Arterial 11/18/17 10:29 Sample Site Right Radial 11/18/17 10:29 pH 7.48 (7.35-7.45) H 11/18/17 10:29 pCO2 29.0 mmHg (35.0-45.0) L 11/18/17 10:29 pO2 81.0 mmHg (80.0-100.0) 11/18/17 10:29 HCO3 24.1 mEq/L (20.0-26.0) 11/18/17 10:29 Base Excess -1.0 mEq/L (-3.0-3.0) 11/18/17 10:29 O2 Saturation 97.0 % (92.0-100.0) 11/18/17 10:29 Mario Test PASS 11/18/17 10:29 Vent Rate NA 11/15/17 08:47 Inspired O2 28 11/18/17 10:29 Tidal Volume NA 11/15/17 08:47 PEEP NA 11/15/17 08:47 Pressure (ins/psv/peep) NA 11/15/17 08:47 Critical Value PW 11/18/17 10:29 Sodium 136 mEq/L (136-145) 11/26/17 08:05 Potassium 3.5 mEq/L (3.5-5.1) 11/26/17 08:05 Chloride 105 mEq/L (98-107) 11/26/17 08:05 Carbon Dioxide 29.5 mEq/L (21.0-31.0) 11/26/17 08:05 Anion Gap 5.0 (7.0-16.0) L 11/26/17 08:05 BUN 91 mg/dL (7-25) H* 11/26/17 08:05 Creatinine 1.3 mg/dL (0.7-1.3) 11/26/17 08:05 Est GFR ( Amer) TNP 11/26/17 08:05 Est GFR (Non-Af Amer) TNP 11/26/17 08:05 BUN/Creatinine Ratio 70.0 11/26/17 08:05 Glucose 72 mg/dL (70-105) 11/26/17 08:05 POC Glucose 84 MG/DL (70 - 105) 11/28/17 06:01 Hemoglobin A1c % 8.3 % (4.0-6.0) H 11/15/17 09:20 Whole Bld Lactic Acid 6.37 mmol/L (0.60-1.99) H* 11/15/17 11:20 Calcium 9.1 mg/dL (8.6-10.3) 11/26/17 08:05 Magnesium 2.3 mg/dL (1.9-2.7) 11/15/17 09:20 Total Bilirubin 0.3 mg/dL (0.3-1.0) 11/24/17 05:50 AST 18 U/L (13-39) 11/24/17 05:50 ALT 38 U/L (7-52) 11/24/17 05:50 Alkaline Phosphatase 63 U/L (34-104) 11/24/17 05:50 Troponin I 0.19 ng/mL (0.01-0.05) H* 11/15/17 09:01 B-Natriuretic Peptide 159.0 pg/mL (5.0-100.0) H 11/25/17 06:50 Total Protein 4.8 gm/dL (6.0-8.3) L 11/24/17 05:50 Albumin 2.2 gm/dL (4.2-5.5) L 11/24/17 05:50 Globulin 2.6 gm/dL 11/24/17 05:50 Albumin/Globulin Ratio 0.9 (1.0-1.8) L 11/24/17 05:50 Triglycerides 201 mg/dL (<150) H 11/15/17 09:20 Cholesterol 75 mg/dL (<200) 11/15/17 09:20 LDL Cholesterol Direct 8 mg/dL (75-193) L 11/15/17 09:20 HDL Cholesterol 9 mg/dL (23-92) L 11/15/17 09:20 TSH 0.75 uIU/ml (0.34-5.60) 11/15/17 09:20 Hepatitis A IgM Ab Negative (Negative) 11/17/17 17:40 Hep Bs Antigen Negative (Negative) 11/17/17 17:40 Hep B Core IgM Ab Negative (Negative) 11/17/17 17:40 Hepatitis C Antibody <0.1 s/co ratio (0.0-0.9) 11/17/17 17:40 - Physical Exam Vitals and I&O: Vital Signs Temp 97.7 F 11/28/17 04:00 Pulse 80 11/28/17 08:14 Resp 14 11/28/17 07:25 BP 115/67 11/28/17 08:14 Pulse Ox 97 11/28/17 07:25 Intake & Output 11/27/17 11/28/17 11/28/17 18:59 06:59 18:59 Intake Total 300 1780 Output Total 800 950 Balance -500 830 Weight (lbs) 78.018 kg 80.286 kg Intake: Intake, IV Amount 300 1300 Linezolid 600mg/300mL 600 300 300 mg In 300 ml @ 200 mls/ hr IV Q12HR@0900,2100 [facility] Rx#:[id number] Sodium Chloride 0.45% 1, 1000 000 ml @ 75 mls/hr IV . [id number] [facility] Rx#:[id number] Oral 0 Tube Feeding 480 Output: Urine 800 950 Other: # Bowel Movements 0 Active Medications: Current Medications Acetaminophen (Tylenol 650mg Supp) 650 mg RC Q4H PRN PRN Reason: Fever > 101 Stop: 01/14/18 12:49 Albuterol/Ipratropium (Duoneb Neb) 3 ml HHN Q4HRT [facility] Stop: 01/15/18 18:59 Last Admin: 11/28/17 07:22 Dose: 3 ml Amlodipine Besylate (Norvasc) 5 mg PO HS [facility] Stop: 01/14/18 20:59 Last Admin: 11/27/17 21:22 Dose: 5 mg Aspirin (Aspirin Chewable) 81 mg PO DAILY [facility] Stop: 01/15/18 08:59 Last Admin: 11/28/17 08:12 Dose: 81 mg Atorvastatin Calcium (Lipitor) 20 mg PO HS [facility] Stop: 01/14/18 22:59 Last Admin: 11/27/17 21:23 Dose: 20 mg Carvedilol (Coreg) 3.125 mg PO BID [facility] Stop: 01/14/18 16:59 Last Admin: 11/28/17 08:14 Dose: 3.125 mg [place] Oil/[place] Balsam/Trypsin (Venelex) 1 appl TP DAILY [facility] Stop: 01/25/18 15:44 Last Admin: 11/28/17 08:14 Dose: 1 appl Diltiazem HCl (Cardizem) 20 mg IVP Q4HR PRN PRN Reason: HR above 110 Stop: 01/23/18 08:24 Fluconazole (Diflucan) 100 mg PO DAILY [facility] Stop: 01/17/18 08:59 Last Admin: 11/28/17 08:12 Dose: 100 mg Glucagon (Glucagen) 1 mg IM PRN PRN PRN Reason: hypoglycemia Stop: 01/14/18 16:44 Diltiazem HCl 125 mg/ Dextrose 125 mls @ 10 mls/hr IV TITR [facility]; 10 MG/HR PRN Reason: Protocol Stop: 01/14/18 11:44 Last Titration: 11/16/17 03:00 Dose: 0 mg/hr, 0 mls/hr Levofloxacin 250 mg/ (Miscellaneous) 50 mls @ 50 mls/hr IV Q24H [facility] Stop: 01/15/18 09:59 Last Admin: 11/27/17 12:00 Dose: 50 mls/hr Linezolid (Zyvox) 600 mg in 300 mls @ 200 mls/hr IV Q12HR@0900,2100 [facility] Stop: 01/16/18 11:59 Last Admin: 11/28/17 08:09 Dose: 200 mls/hr Sodium Chloride (Nacl 0.45%) 1,000 mls @ 75 mls/hr IV .[id number] [facility] Stop: 01/19/18 22:18 Last Admin: 11/27/17 21:46 Dose: 25 mls/hr Insulin Aspart (Novolog Insulin Sliding Scale) 0 units SUBQ ACHS [facility] PRN Reason: Protocol Stop: 01/15/18 07:29 Last Admin: 11/28/17 07:23 Dose: Not Given Insulin Detemir (Levemir Insulin) 14 units SUBQ BID [facility] PRN Reason: Protocol Stop: 01/20/18 16:59 Last Admin: 11/28/17 08:18 Dose: Not Given Methylprednisolone Sodium Succinate (Solu-Medrol) 20 mg IVP DAILY [facility] Stop: 01/24/18 08:59 Last Admin: 11/28/17 08:12 Dose: 20 mg Mirtazapine (Remeron) 30 mg PO HS [facility] Stop: 01/14/18 22:59 Last Admin: 11/27/17 21:23 Dose: 30 mg Miscellaneous (Probiotic Screen) 1 ea MC PRN PRN PRN Reason: PROTOCOL Stop: 01/19/18 16:29 Neomycin/Polymyxin/Bacitracin (Triple Antibiotic Ointment) 1 appl TP DAILY [facility] Stop: 01/15/18 08:59 Last Admin: 11/28/17 08:15 Dose: 1 appl Olanzapine (Zyprexa) 10 mg PO TID [facility] PRN Reason: Protocol Stop: 01/14/18 20:59 Last Admin: 11/28/17 08:12 Dose: 10 mg Pantoprazole Sodium (Protonix) 40 mg PO DAILY [facility] Stop: 01/15/18 08:59 Last Admin: 11/28/17 08:12 Dose: 40 mg Rivaroxaban (Xarelto) 5 mg PO DAILY [facility] Stop: 01/21/18 15:59 Last Admin: 11/28/17 08:12 Dose: 5 mg General: Alert, Other (confused) HEENT: Atraumatic, PERRLA Neck: Supple Cardiovascular: Regular rate, Other (multiple PVC) Lungs: Other (rhonchi) Abdomen: Bowel sounds, Soft (+Gtube), Obese, Other (G tube site c/d/i) Extremities: Edema Psych/Mental Status: Other (lethargic) - Procedures Procedures: Procedures Procedure Code Date INSERT TUNNELED CV CATH [id number] 11/15/17 INSERTION OF INFUSION DEV INTO R SUBCLAV VEIN, PERC APPROACH [id number] 11/15/17 Assessment/Plan - Problem List Patient Problems: All Active Problems SEVERE RESPIRATORY DISTRESS (Acute) - Assessment Assessment: # CHF # CAD # Afib on xeralto # CKD # Sepsis # Dementia vs delirium G tube placed on 11/26/17, and pt tolerating feeds at 40cc/hr. Xeralto can be restarted today. Plan: - cont G tube feeding, titrate to goal rate of 50cc/hr - hold for residuals > 150cc - flush G tube with 100cc every 6 hours - restart home dose xeralto - antibiotics as per primary
[2017-11-28] MEDS: Levofloxacin 250mg/50mL 250 MG in Premix Fluid 1 BAG IV SCH (10:12)
--- NOTE | 2017-11-28 14:04 | General Progress Note ---
Subjective - Review of Systems Service Date: 11/28/17 Subjective: awake and alert no distress Objective - Results Result Diagrams: 11/24/17 05:50 11/26/17 08:05 Recent Labs: Laboratory Last Values WBC 23.5 Th/cmm (4.8-10.8) H* D 11/24/17 05:50 RBC 3.56 Mil/cmm (3.80-5.80) L 11/24/17 05:50 Hgb 10.7 gm/dL (12-16) L 11/24/17 05:50 Hct 31.5 % (41.0-60) L 11/24/17 05:50 MCV 88.5 fl (80-99) 11/24/17 05:50 MCH 30.2 pg (27.0-31.0) 11/24/17 05:50 MCHC Differential 34.1 pg (28.0-36.0) 11/24/17 05:50 RDW 13.8 % (11.5-20.0) 11/24/17 05:50 Plt Count 146 Th/cmm (150-400) L D 11/24/17 05:50 MPV 10.2 fl 11/24/17 05:50 Neutrophils % 94.7 % (40.0-80.0) H 11/17/17 07:45 Band Neutrophils % 6 % (0-10) 11/19/17 05:30 Lymphocytes % 3.7 % (20.0-50.0) L 11/17/17 07:45 Monocytes % 1.6 % (2.0-10.0) L 11/17/17 07:45 Eosinophils % 0.0 % (0.0-5.0) 11/17/17 07:45 Basophils % 0.0 % (0.0-2.0) 11/15/17 09:01 Neutrophils (Manual) 87 % (40-80) H 11/19/17 05:30 Lymphocytes 6 % (20-50) L 11/19/17 05:30 Monocytes 1 % (2-10) L 11/19/17 05:30 Platelet Estimate SLIGHT DECREASED (NORMAL) 11/19/17 05:30 PT 12.3 SECONDS (9.5-11.5) H 11/25/17 06:50 INR 1.17 (0.5-1.4) 11/25/17 06:50 Specimen Source Arterial 11/18/17 10:29 Sample Site Right Radial 11/18/17 10:29 pH 7.48 (7.35-7.45) H 11/18/17 10:29 pCO2 29.0 mmHg (35.0-45.0) L 11/18/17 10:29 pO2 81.0 mmHg (80.0-100.0) 11/18/17 10:29 HCO3 24.1 mEq/L (20.0-26.0) 11/18/17 10:29 Base Excess -1.0 mEq/L (-3.0-3.0) 11/18/17 10:29 O2 Saturation 97.0 % (92.0-100.0) 11/18/17 10:29 Mario Test PASS 11/18/17 10:29 Vent Rate NA 11/15/17 08:47 Inspired O2 28 11/18/17 10:29 Tidal Volume NA 11/15/17 08:47 PEEP NA 11/15/17 08:47 Pressure (ins/psv/peep) NA 11/15/17 08:47 Critical Value PW 11/18/17 10:29 Sodium 136 mEq/L (136-145) 11/26/17 08:05 Potassium 3.5 mEq/L (3.5-5.1) 11/26/17 08:05 Chloride 105 mEq/L (98-107) 11/26/17 08:05 Carbon Dioxide 29.5 mEq/L (21.0-31.0) 11/26/17 08:05 Anion Gap 5.0 (7.0-16.0) L 11/26/17 08:05 BUN 91 mg/dL (7-25) H* 11/26/17 08:05 Creatinine 1.3 mg/dL (0.7-1.3) 11/26/17 08:05 Est GFR ( Amer) TNP 11/26/17 08:05 Est GFR (Non-Af Amer) TNP 11/26/17 08:05 BUN/Creatinine Ratio 70.0 11/26/17 08:05 Glucose 72 mg/dL (70-105) 11/26/17 08:05 POC Glucose 128 MG/DL (70 - 105) H 11/28/17 11:35 Hemoglobin A1c % 8.3 % (4.0-6.0) H 11/15/17 09:20 Whole Bld Lactic Acid 6.37 mmol/L (0.60-1.99) H* 11/15/17 11:20 Calcium 9.1 mg/dL (8.6-10.3) 11/26/17 08:05 Magnesium 2.3 mg/dL (1.9-2.7) 11/15/17 09:20 Total Bilirubin 0.3 mg/dL (0.3-1.0) 11/24/17 05:50 AST 18 U/L (13-39) 11/24/17 05:50 ALT 38 U/L (7-52) 11/24/17 05:50 Alkaline Phosphatase 63 U/L (34-104) 11/24/17 05:50 Troponin I 0.19 ng/mL (0.01-0.05) H* 11/15/17 09:01 B-Natriuretic Peptide 159.0 pg/mL (5.0-100.0) H 11/25/17 06:50 Total Protein 4.8 gm/dL (6.0-8.3) L 11/24/17 05:50 Albumin 2.2 gm/dL (4.2-5.5) L 11/24/17 05:50 Globulin 2.6 gm/dL 11/24/17 05:50 Albumin/Globulin Ratio 0.9 (1.0-1.8) L 11/24/17 05:50 Triglycerides 201 mg/dL (<150) H 11/15/17 09:20 Cholesterol 75 mg/dL (<200) 11/15/17 09:20 LDL Cholesterol Direct 8 mg/dL (75-193) L 11/15/17 09:20 HDL Cholesterol 9 mg/dL (23-92) L 11/15/17 09:20 TSH 0.75 uIU/ml (0.34-5.60) 11/15/17 09:20 Hepatitis A IgM Ab Negative (Negative) 11/17/17 17:40 Hep Bs Antigen Negative (Negative) 11/17/17 17:40 Hep B Core IgM Ab Negative (Negative) 11/17/17 17:40 Hepatitis C Antibody <0.1 s/co ratio (0.0-0.9) 11/17/17 17:40 - Physical Exam Vitals and I&O: Vital Signs Temp 97.7 F 11/28/17 04:00 Pulse 89 11/28/17 11:12 Resp 14 11/28/17 11:14 BP 115/67 11/28/17 08:14 Pulse Ox 100 11/28/17 11:12 Intake & Output 11/27/17 11/28/17 11/28/17 18:59 06:59 18:59 Intake Total 350 1780 Output Total 800 950 Balance -450 830 Weight (lbs) 78.018 kg 80.286 kg Intake: Intake, IV Amount 350 1300 Levofloxacin 250mg/50mL 50 250 mg In Premix Fluid 1 bag @ 50 mls/hr IV Q24H [facility] Rx#:[id number] Linezolid 600mg/300mL 600 300 300 mg In 300 ml @ 200 mls/ hr IV Q12HR@0900,2100 [facility] Rx#:[id number] Sodium Chloride 0.45% 1, 1000 000 ml @ 75 mls/hr IV . [id number] [facility] Rx#:[id number] Oral 0 Tube Feeding 480 Output: Urine 800 950 Other: # Bowel Movements 0 Active Medications: Current Medications Acetaminophen (Tylenol 650mg Supp) 650 mg RC Q4H PRN PRN Reason: Fever > 101 Stop: 01/14/18 12:49 Albuterol/Ipratropium (Duoneb Neb) 3 ml HHN Q4HRT [facility] Stop: 01/15/18 18:59 Last Admin: 11/28/17 11:11 Dose: 3 ml Amlodipine Besylate (Norvasc) 5 mg PO HS [facility] Stop: 01/14/18 20:59 Last Admin: 11/27/17 21:22 Dose: 5 mg Aspirin (Aspirin Chewable) 81 mg PO DAILY [facility] Stop: 01/15/18 08:59 Last Admin: 11/28/17 08:12 Dose: 81 mg Atorvastatin Calcium (Lipitor) 20 mg PO HS [facility] Stop: 01/14/18 22:59 Last Admin: 11/27/17 21:23 Dose: 20 mg Carvedilol (Coreg) 3.125 mg PO BID [facility] Stop: 01/14/18 16:59 Last Admin: 11/28/17 08:14 Dose: 3.125 mg [place] Oil/[place] Balsam/Trypsin (Venelex) 1 appl TP DAILY [facility] Stop: 01/25/18 15:44 Last Admin: 11/28/17 08:14 Dose: 1 appl Diltiazem HCl (Cardizem) 20 mg IVP Q4HR PRN PRN Reason: HR above 110 Stop: 01/23/18 08:24 Fluconazole (Diflucan) 100 mg PO DAILY [facility] Stop: 01/17/18 08:59 Last Admin: 11/28/17 08:12 Dose: 100 mg Glucagon (Glucagen) 1 mg IM PRN PRN PRN Reason: hypoglycemia Stop: 01/14/18 16:44 Diltiazem HCl 125 mg/ Dextrose 125 mls @ 10 mls/hr IV TITR [facility]; 10 MG/HR PRN Reason: Protocol Stop: 01/14/18 11:44 Last Titration: 11/16/17 03:00 Dose: 0 mg/hr, 0 mls/hr Levofloxacin 250 mg/ (Miscellaneous) 50 mls @ 50 mls/hr IV Q24H [facility] Stop: 01/15/18 09:59 Last Admin: 11/28/17 10:12 Dose: 50 mls/hr Linezolid (Zyvox) 600 mg in 300 mls @ 200 mls/hr IV Q12HR@0900,2100 [facility] Stop: 01/16/18 11:59 Last Admin: 11/28/17 08:09 Dose: 200 mls/hr Sodium Chloride (Nacl 0.45%) 1,000 mls @ 75 mls/hr IV .[id number] [facility] Stop: 01/19/18 22:18 Last Admin: 11/27/17 21:46 Dose: 25 mls/hr Insulin Aspart (Novolog Insulin Sliding Scale) 0 units SUBQ ACHS [facility] PRN Reason: Protocol Stop: 01/15/18 07:29 Last Admin: 11/28/17 11:36 Dose: Not Given Insulin Detemir (Levemir Insulin) 14 units SUBQ BID [facility] PRN Reason: Protocol Stop: 01/20/18 16:59 Last Admin: 11/28/17 08:18 Dose: Not Given Methylprednisolone Sodium Succinate (Solu-Medrol) 20 mg IVP DAILY [facility] Stop: 01/24/18 08:59 Last Admin: 11/28/17 08:12 Dose: 20 mg Mirtazapine (Remeron) 30 mg PO HS [facility] Stop: 01/14/18 22:59 Last Admin: 11/27/17 21:23 Dose: 30 mg Miscellaneous (Probiotic Screen) 1 ea MC PRN PRN PRN Reason: PROTOCOL Stop: 01/19/18 16:29 Neomycin/Polymyxin/Bacitracin (Triple Antibiotic Ointment) 1 appl TP DAILY [facility] Stop: 01/15/18 08:59 Last Admin: 11/28/17 08:15 Dose: 1 appl Olanzapine (Zyprexa) 10 mg PO TID [facility] PRN Reason: Protocol Stop: 01/14/18 20:59 Last Admin: 11/28/17 08:12 Dose: 10 mg Pantoprazole Sodium (Protonix) 40 mg PO DAILY [facility] Stop: 01/15/18 08:59 Last Admin: 11/28/17 08:12 Dose: 40 mg Rivaroxaban (Xarelto) 5 mg PO DAILY [facility] Stop: 01/21/18 15:59 Last Admin: 11/28/17 08:12 Dose: 5 mg General: Alert, Other (confused) HEENT: Atraumatic, PERRLA Neck: Supple Cardiovascular: Regular rate, Other (multiple PVC) Lungs: Other (rhonchi) Abdomen: Bowel sounds, Soft (+Gtube), Obese, Other (G tube site c/d/i) Extremities: Edema Psych/Mental Status: Other (lethargic) - Procedures Procedures: Procedures Procedure Code Date INSERT TUNNELED CV CATH 39117 11/15/17 INSERTION OF INFUSION DEV INTO R SUBCLAV VEIN, PERC APPROACH [id number] 11/15/17 Assessment/Plan - Problem List Patient Problems: All Active Problems SEVERE RESPIRATORY DISTRESS (Acute) - Assessment Assessment: 1.PNEUMONIA. 2.COPD. 3.PAFIB 4.DEMENTIA. 5.PENNY. 6.DEHYDRATION. 7.DM 8.S/P GT PLACEMENT - Plan Plan: cont current treatment Nutritional Asmnt/Malnutr-PDOC - Dietary Evaluation Malnutrition Findings (Please click <Entered> for more info): Nutritional Asmnt/Malnutrition Start: 11/16/17 14: 06 Text: Status: Complete Freq: Document 11/16/17 14:06 LISA (Rec: 11/16/17 14:20 [email or web address]) Nutritional Asmnt/Malnutrition Patient General Information Nutritional Screening High Risk Consult Diagnosis actute renal failure, sepsis, PNA Pertinent Medical Hx/Surgical Hx hyperlipidemia, CHF, HTN, COPD , ICD device Subjective Information Consult received for admit blood sugar 263. Pt seen sleeping in bed at the time of visit. Spoke with RN, pt refused breakfast this morning possible d/t weakness and being sick. Current Diet Order/ Nutrition Support low chlesterol 300gm Pertinent Medications glucagen, novolog, remeron, nacl 0.9% Pertinent Labs 11/15 Na 137, K 4.6, Cl 110, BUN 105, Cr 2.9, GLucose 295, POC 246-370 since admit, a1c 8.3, calcium 9.2 Nutritional Hx/Data Height 1.85 m Height (Calculated Centimeters) 185.4 Current Weight (lbs) 62.55 kg Weight (Calculated Kilograms) 62.6 Weight (Calculated Grams) 02988.4 [place] Body Weight 184 % [place] Body Weight 75 Body Mass Index (BMI) 18.1 Weight Status Underweight GI Symptoms GI Symptoms None Last BM no record Skin Integrity/Comment: pressure area to heels Current %PO Negligible < 25% Estimated Nutritional Goals Calories/Kcals/Kg 25-30 Kcals Calculated 1921-4001 based on IBW considering underweight and sepsis Protein g/k-1.2 Protein Calculated 84-100 Fluid: ml 2089-250ml (1ml/kcal) Nutritional Problem 2. Problem Problem altered nutrition related lab values Etiology acute renal failure, hx of DM Signs/Symptoms: BUN 105, Cr 2.9, GLucose 295, POC 246-370, a1c 8.3, 1. Problem Problem increased nutrition needs ( calorie and protein) Etiology increased metabolic demand for healing and underweight Signs/Symptoms: dx of sepsis and PNA, BMI 18.2 Malnutrition Alert Protein-Calorie Malnutrition N/A Is there a minimum of two criteria No selected? Query Text:Check all the applicable criteria. A minimum of two criteria are recommended for diagnosis of either severe or non-severe malnutrition. Intervention/Recommendation Comments 1. Recommend modify diet to CCHO, low cholesteral diet for optimal glycemic control. RN made aware, will talk to MD 2. Monitor PO intake, wt, labs and skin integrity 3. F/U as high risk in 2-3 days, 11/18-11/19 Expected Outcomes/Goals Expected Outcomes/Goals 1. PO intake to meet at least 75% of nutritional needs. 2. Wt stability, skin to remain intact, labs to improve
--- NOTE | 2017-11-28 18:55 | Infectious Disease Prog Note ---
Infectious Disease Subjective - Review of Systems Service Date: 11/28/17 Subjective: cc uti pn hpi- pt on iv abx ros no fevr o/e vss chets claera bd soft ext pilse Infectious Disease Objective - Results Result Diagrams: 11/24/17 05:50 11/26/17 08:05 Recent Labs: Laboratory Last Values WBC 23.5 Th/cmm (4.8-10.8) H* D 11/24/17 05:50 RBC 3.56 Mil/cmm (3.80-5.80) L 11/24/17 05:50 Hgb 10.7 gm/dL (12-16) L 11/24/17 05:50 Hct 31.5 % (41.0-60) L 11/24/17 05:50 MCV 88.5 fl (80-99) 11/24/17 05:50 MCH 30.2 pg (27.0-31.0) 11/24/17 05:50 MCHC Differential 34.1 pg (28.0-36.0) 11/24/17 05:50 RDW 13.8 % (11.5-20.0) 11/24/17 05:50 Plt Count 146 Th/cmm (150-400) L D 11/24/17 05:50 MPV 10.2 fl 11/24/17 05:50 Neutrophils % 94.7 % (40.0-80.0) H 11/17/17 07:45 Band Neutrophils % 6 % (0-10) 11/19/17 05:30 Lymphocytes % 3.7 % (20.0-50.0) L 11/17/17 07:45 Monocytes % 1.6 % (2.0-10.0) L 11/17/17 07:45 Eosinophils % 0.0 % (0.0-5.0) 11/17/17 07:45 Basophils % 0.0 % (0.0-2.0) 11/15/17 09:01 Neutrophils (Manual) 87 % (40-80) H 11/19/17 05:30 Lymphocytes 6 % (20-50) L 11/19/17 05:30 Monocytes 1 % (2-10) L 11/19/17 05:30 Platelet Estimate SLIGHT DECREASED (NORMAL) 11/19/17 05:30 PT 12.3 SECONDS (9.5-11.5) H 11/25/17 06:50 INR 1.17 (0.5-1.4) 11/25/17 06:50 Specimen Source Arterial 11/18/17 10:29 Sample Site Right Radial 11/18/17 10:29 pH 7.48 (7.35-7.45) H 11/18/17 10:29 pCO2 29.0 mmHg (35.0-45.0) L 11/18/17 10:29 pO2 81.0 mmHg (80.0-100.0) 11/18/17 10:29 HCO3 24.1 mEq/L (20.0-26.0) 11/18/17 10:29 Base Excess -1.0 mEq/L (-3.0-3.0) 11/18/17 10:29 O2 Saturation 97.0 % (92.0-100.0) 11/18/17 10:29 Mario Test PASS 11/18/17 10:29 Vent Rate NA 11/15/17 08:47 Inspired O2 28 11/18/17 10:29 Tidal Volume NA 11/15/17 08:47 PEEP NA 11/15/17 08:47 Pressure (ins/psv/peep) NA 11/15/17 08:47 Critical Value PW 11/18/17 10:29 Sodium 136 mEq/L (136-145) 11/26/17 08:05 Potassium 3.5 mEq/L (3.5-5.1) 11/26/17 08:05 Chloride 105 mEq/L (98-107) 11/26/17 08:05 Carbon Dioxide 29.5 mEq/L (21.0-31.0) 11/26/17 08:05 Anion Gap 5.0 (7.0-16.0) L 11/26/17 08:05 BUN 91 mg/dL (7-25) H* 11/26/17 08:05 Creatinine 1.3 mg/dL (0.7-1.3) 11/26/17 08:05 Est GFR ( Amer) TNP 11/26/17 08:05 Est GFR (Non-Af Amer) TNP 11/26/17 08:05 BUN/Creatinine Ratio 70.0 11/26/17 08:05 Glucose 72 mg/dL (70-105) 11/26/17 08:05 POC Glucose 205 MG/DL (70 - 105) H 11/28/17 16:46 Hemoglobin A1c % 8.3 % (4.0-6.0) H 11/15/17 09:20 Whole Bld Lactic Acid 6.37 mmol/L (0.60-1.99) H* 11/15/17 11:20 Calcium 9.1 mg/dL (8.6-10.3) 11/26/17 08:05 Magnesium 2.3 mg/dL (1.9-2.7) 11/15/17 09:20 Total Bilirubin 0.3 mg/dL (0.3-1.0) 11/24/17 05:50 AST 18 U/L (13-39) 11/24/17 05:50 ALT 38 U/L (7-52) 11/24/17 05:50 Alkaline Phosphatase 63 U/L (34-104) 11/24/17 05:50 Troponin I 0.19 ng/mL (0.01-0.05) H* 11/15/17 09:01 B-Natriuretic Peptide 159.0 pg/mL (5.0-100.0) H 11/25/17 06:50 Total Protein 4.8 gm/dL (6.0-8.3) L 11/24/17 05:50 Albumin 2.2 gm/dL (4.2-5.5) L 11/24/17 05:50 Globulin 2.6 gm/dL 11/24/17 05:50 Albumin/Globulin Ratio 0.9 (1.0-1.8) L 11/24/17 05:50 Triglycerides 201 mg/dL (<150) H 11/15/17 09:20 Cholesterol 75 mg/dL (<200) 11/15/17 09:20 LDL Cholesterol Direct 8 mg/dL (75-193) L 11/15/17 09:20 HDL Cholesterol 9 mg/dL (23-92) L 11/15/17 09:20 TSH 0.75 uIU/ml (0.34-5.60) 11/15/17 09:20 Hepatitis A IgM Ab Negative (Negative) 11/17/17 17:40 Hep Bs Antigen Negative (Negative) 11/17/17 17:40 Hep B Core IgM Ab Negative (Negative) 11/17/17 17:40 Hepatitis C Antibody <0.1 s/co ratio (0.0-0.9) 11/17/17 17:40 - Physical Exam Vitals and I&O: Vital Signs Temp 97.0 F 11/28/17 16:00 Pulse 90 11/28/17 17:24 Resp 18 11/28/17 16:00 BP 120/53 11/28/17 17:24 Pulse Ox 97 11/28/17 16:00 Intake & Output 11/27/17 11/28/17 11/28/17 18:59 06:59 18:59 Intake Total 350 1780 1070 Output Total 800 950 875 Balance -450 830 195 Weight (lbs) 78.018 kg 80.286 kg 80.286 kg Intake: Intake, IV Amount 350 1300 350 Levofloxacin 250mg/50mL 50 50 250 mg In Premix Fluid 1 bag @ 50 mls/hr IV Q24H [facility] Rx#:[id number] Linezolid 600mg/300mL 600 300 300 300 mg In 300 ml @ 200 mls/ hr IV Q12HR@0900,2100 [facility] Rx#:[id number] Sodium Chloride 0.45% 1, 1000 000 ml @ 75 mls/hr IV . [id number] [facility] Rx#:[id number] Oral 0 720 Tube Feeding 480 Output: Urine 800 950 875 Other: # Bowel Movements 0 0 Active Medications: Current Medications Acetaminophen (Tylenol 650mg Supp) 650 mg RC Q4H PRN PRN Reason: Fever > 101 Stop: 01/14/18 12:49 Albuterol/Ipratropium (Duoneb Neb) 3 ml HHN Q6HRT [facility] Stop: 01/27/18 18:59 Last Admin: 11/28/17 18:32 Dose: 3 ml Amlodipine Besylate (Norvasc) 5 mg PO HS [facility] Stop: 01/14/18 20:59 Last Admin: 11/27/17 21:22 Dose: 5 mg Aspirin (Aspirin Chewable) 81 mg PO DAILY [facility] Stop: 01/15/18 08:59 Last Admin: 11/28/17 08:12 Dose: 81 mg Atorvastatin Calcium (Lipitor) 20 mg PO HS [facility] Stop: 01/14/18 22:59 Last Admin: 11/27/17 21:23 Dose: 20 mg Carvedilol (Coreg) 3.125 mg PO BID [facility] Stop: 01/14/18 16:59 Last Admin: 11/28/17 17:24 Dose: 3.125 mg [place] Oil/[place] Balsam/Trypsin (Venelex) 1 appl TP DAILY [facility] Stop: 01/25/18 15:44 Last Admin: 11/28/17 08:14 Dose: 1 appl Diltiazem HCl (Cardizem) 20 mg IVP Q4HR PRN PRN Reason: HR above 110 Stop: 01/23/18 08:24 Fluconazole (Diflucan) 100 mg PO DAILY [facility] Stop: 01/17/18 08:59 Last Admin: 11/28/17 08:12 Dose: 100 mg Glucagon (Glucagen) 1 mg IM PRN PRN PRN Reason: hypoglycemia Stop: 01/14/18 16:44 Diltiazem HCl 125 mg/ Dextrose 125 mls @ 10 mls/hr IV TITR [facility]; 10 MG/HR PRN Reason: Protocol Stop: 01/14/18 11:44 Last Titration: 11/16/17 03:00 Dose: 0 mg/hr, 0 mls/hr Levofloxacin 250 mg/ (Miscellaneous) 50 mls @ 50 mls/hr IV Q24H [facility] Stop: 01/15/18 09:59 Last Infusion: 11/28/17 18:43 Dose: Infused Linezolid (Zyvox) 600 mg in 300 mls @ 200 mls/hr IV Q12HR@0900,2100 [facility] Stop: 01/16/18 11:59 Last Infusion: 11/28/17 18:43 Dose: Infused Sodium Chloride (Nacl 0.45%) 1,000 mls @ 75 mls/hr IV .[id number] [facility] Stop: 01/19/18 22:18 Last Admin: 11/27/17 21:46 Dose: 25 mls/hr Insulin Aspart (Novolog Insulin Sliding Scale) 0 units SUBQ ACHS [facility] PRN Reason: Protocol Stop: 01/15/18 07:29 Last Admin: 11/28/17 17:23 Dose: 5 units Insulin Detemir (Levemir Insulin) 14 units SUBQ BID [facility] PRN Reason: Protocol Stop: 01/20/18 16:59 Last Admin: 11/28/17 17:24 Dose: 14 units Methylprednisolone Sodium Succinate (Solu-Medrol) 20 mg IVP DAILY [facility] Stop: 01/24/18 08:59 Last Admin: 11/28/17 08:12 Dose: 20 mg Mirtazapine (Remeron) 30 mg PO HS [facility] Stop: 01/14/18 22:59 Last Admin: 11/27/17 21:23 Dose: 30 mg Miscellaneous (Probiotic Screen) 1 ea MC PRN PRN PRN Reason: PROTOCOL Stop: 01/19/18 16:29 Neomycin/Polymyxin/Bacitracin (Triple Antibiotic Ointment) 1 appl TP DAILY [facility] Stop: 01/15/18 08:59 Last Admin: 11/28/17 08:15 Dose: 1 appl Olanzapine (Zyprexa) 10 mg PO TID [facility] PRN Reason: Protocol Stop: 01/14/18 20:59 Last Admin: 11/28/17 14:25 Dose: 10 mg Pantoprazole Sodium (Protonix) 40 mg PO DAILY [facility] Stop: 01/15/18 08:59 Last Admin: 11/28/17 08:12 Dose: 40 mg Rivaroxaban (Xarelto) 5 mg PO DAILY [facility] Stop: 01/21/18 15:59 Last Admin: 11/28/17 08:12 Dose: 5 mg - Procedures Procedures: Procedures Procedure Code Date INSERT TUNNELED CV CATH 32713 11/15/17 INSERTION OF INFUSION DEV INTO R SUBCLAV VEIN, PERC APPROACH [id number] 11/15/17 Infectious Disease Assmt/Plan - Problem List Patient Problems: All Active Problems SEVERE RESPIRATORY DISTRESS (Acute) Nutritional Asmnt/Malnutr-PDOC - Dietary Evaluation Malnutrition Findings (Please click <Entered> for more info): Nutritional Asmnt/Malnutrition Start: 11/16/17 14: 06 Text: Status: Complete Freq: Document 11/16/17 14:06 LCHENG (Rec: 11/16/17 14:20 [email or web address]) Nutritional Asmnt/Malnutrition Patient General Information Nutritional Screening High Risk Consult Diagnosis actute renal failure, sepsis, PNA Pertinent Medical Hx/Surgical Hx hyperlipidemia, CHF, HTN, COPD , ICD device Subjective Information Consult received for admit blood sugar 263. Pt seen sleeping in bed at the time of visit. Spoke with RN, pt refused breakfast this morning possible d/t weakness and being sick. Current Diet Order/ Nutrition Support low chlesterol 300gm Pertinent Medications glucagen, novolog, remeron, nacl 0.9% Pertinent Labs 11/15 Na 137, K 4.6, Cl 110, BUN 105, Cr 2.9, GLucose 295, POC 246-370 since admit, a1c 8.3, calcium 9.2 Nutritional Hx/Data Height 1.85 m Height (Calculated Centimeters) 185.4 Current Weight (lbs) 62.55 kg Weight (Calculated Kilograms) 62.6 Weight (Calculated Grams) 08100.4 [place] Body Weight 184 % [place] Body Weight 75 Body Mass Index (BMI) 18.1 Weight Status Underweight GI Symptoms GI Symptoms None Last BM no record Skin Integrity/Comment: pressure area to heels Current %PO Negligible < 25% Estimated Nutritional Goals Calories/Kcals/Kg 25-30 Kcals Calculated 9333-4983 based on IBW considering underweight and sepsis Protein g/k-1.2 Protein Calculated 84-100 Fluid: ml 2089-250ml (1ml/kcal) Nutritional Problem 2. Problem Problem altered nutrition related lab values Etiology acute renal failure, hx of DM Signs/Symptoms: BUN 105, Cr 2.9, GLucose 295, POC 246-370, a1c 8.3, 1. Problem Problem increased nutrition needs ( calorie and protein) Etiology increased metabolic demand for healing and underweight Signs/Symptoms: dx of sepsis and PNA, BMI 18.2 Malnutrition Alert Protein-Calorie Malnutrition N/A Is there a minimum of two criteria No selected? Query Text:Check all the applicable criteria. A minimum of two criteria are recommended for diagnosis of either severe or non-severe malnutrition. Intervention/Recommendation Comments 1. Recommend modify diet to CCHO, low cholesteral diet for optimal glycemic control. RN made aware, will talk to MD 2. Monitor PO intake, wt, labs and skin integrity 3. F/U as high risk in 2-3 days, 11/18-11/19 Expected Outcomes/Goals Expected Outcomes/Goals 1. PO intake to meet at least 75% of nutritional needs. 2. Wt stability, skin to remain intact, labs to improve
[2017-11-28] MEDS: Atorvastatin Calcium 10 MG TAB PO SCH (22:39)
[2017-11-29] MEDS: Albuterol/Ipratropium Neb 3 ML AERS HHN SCH ×4 (01:35→19:36)
[2017-11-29 07:08] LABS: HEMOGLOBIN 8.4 gm/dL (12-16); MEAN CELL VOLUME 89.5 fl (80-99); MEAN CORPUSCULAR HEMOGLOBIN 29.9 pg (27.0-31.0); MEAN CORPUSCULAR HGB CONC 33.4 pg (28.0-36.0); MEAN PLATELET VOLUME 11.2 fl; PLATELET COUNT 127 Th/cmm (150-400); RED BLOOD COUNT 2.82 Mil/cmm (3.80-5.80); RED CELL DISTRIBUTION WIDTH 13.9 % (11.5-20.0)
[2017-11-29] MEDS: INSULIN ASPART SLIDING SCALE 100 UNITS/ML UNIT SUBQ SCH ×3 (07:08→17:00)
[2017-11-29 07:25] LABS: WHITE BLOOD COUNT 18.7 Th/cmm (4.8-10.8)
[2017-11-29 07:44] LABS: ANION GAP 9.3 (7.0-16.0); BUN - UREA NITROGEN 77 mg/dL (7-25); CALCIUM SERUM 8.2 mg/dL (8.6-10.3); CARBON DIOXIDE 25.3 mEq/L (21.0-31.0); CHLORIDE 109 mEq/L (98-107); CREATININE - SERUM 1.2 mg/dL (0.7-1.3); GLUCOSE 223 mg/dL (70-105); POTASSIUM SERUM 3.6 mEq/L (3.5-5.1); SODIUM SERUM 140 mEq/L (136-145)
[2017-11-29 07:58] LABS: BAND NEUTROPHILE 2 % (0-10); LYMPHOCYTE 2 % (20-50); MONOCYTE 2 % (2-10); NEUTROPHILS 94 % (40-80); TOTAL CELLS COUNTED 100
--- NOTE | 2017-11-29 09:26 | GI Progress Note ---
Subjective - Review of Systems Service Date: 11/29/17 Subjective: No new events Objective - Results Result Diagrams: 11/29/17 06:40 11/29/17 06:40 Recent Labs: Laboratory Last Values WBC 18.7 Th/cmm (4.8-10.8) H D 11/29/17 06:40 RBC 2.82 Mil/cmm (3.80-5.80) L 11/29/17 06:40 Hgb 8.4 gm/dL (12-16) L 11/29/17 06:40 Hct 25.0 % (41.0-60) L D 11/29/17 06:40 MCV 89.5 fl (80-99) 11/29/17 06:40 MCH 29.9 pg (27.0-31.0) 11/29/17 06:40 MCHC Differential 33.4 pg (28.0-36.0) 11/29/17 06:40 RDW 13.9 % (11.5-20.0) 11/29/17 06:40 Plt Count 127 Th/cmm (150-400) L 11/29/17 06:40 MPV 11.2 fl 11/29/17 06:40 Neutrophils % 94.7 % (40.0-80.0) H 11/17/17 07:45 Band Neutrophils % 2 % (0-10) 11/29/17 06:40 Lymphocytes % 3.7 % (20.0-50.0) L 11/17/17 07:45 Monocytes % 1.6 % (2.0-10.0) L 11/17/17 07:45 Eosinophils % 0.0 % (0.0-5.0) 11/17/17 07:45 Basophils % 0.0 % (0.0-2.0) 11/15/17 09:01 Neutrophils (Manual) 94 % (40-80) H 11/29/17 06:40 Lymphocytes 2 % (20-50) L 11/29/17 06:40 Monocytes 2 % (2-10) 11/29/17 06:40 Platelet Estimate SLIGHT DECREASED (NORMAL) 11/19/17 05:30 PT 12.3 SECONDS (9.5-11.5) H 11/25/17 06:50 INR 1.17 (0.5-1.4) 11/25/17 06:50 Specimen Source Arterial 11/18/17 10:29 Sample Site Right Radial 11/18/17 10:29 pH 7.48 (7.35-7.45) H 11/18/17 10:29 pCO2 29.0 mmHg (35.0-45.0) L 11/18/17 10:29 pO2 81.0 mmHg (80.0-100.0) 11/18/17 10:29 HCO3 24.1 mEq/L (20.0-26.0) 11/18/17 10:29 Base Excess -1.0 mEq/L (-3.0-3.0) 11/18/17 10:29 O2 Saturation 97.0 % (92.0-100.0) 11/18/17 10:29 Mario Test PASS 11/18/17 10:29 Vent Rate NA 11/15/17 08:47 Inspired O2 28 11/18/17 10:29 Tidal Volume NA 11/15/17 08:47 PEEP NA 11/15/17 08:47 Pressure (ins/psv/peep) NA 11/15/17 08:47 Critical Value PW 11/18/17 10:29 Sodium 140 mEq/L (136-145) 11/29/17 06:40 Potassium 3.6 mEq/L (3.5-5.1) 11/29/17 06:40 Chloride 109 mEq/L (98-107) H 11/29/17 06:40 Carbon Dioxide 25.3 mEq/L (21.0-31.0) 11/29/17 06:40 Anion Gap 9.3 (7.0-16.0) 11/29/17 06:40 BUN 77 mg/dL (7-25) H 11/29/17 06:40 Creatinine 1.2 mg/dL (0.7-1.3) 11/29/17 06:40 Est GFR ( Amer) TNP 11/29/17 06:40 Est GFR (Non-Af Amer) TNP 11/29/17 06:40 BUN/Creatinine Ratio 64.2 11/29/17 06:40 Glucose 223 mg/dL (70-105) H 11/29/17 06:40 POC Glucose 189 MG/DL (70 - 105) H 11/29/17 07:07 Hemoglobin A1c % 8.3 % (4.0-6.0) H 11/15/17 09:20 Whole Bld Lactic Acid 6.37 mmol/L (0.60-1.99) H* 11/15/17 11:20 Calcium 8.2 mg/dL (8.6-10.3) L 11/29/17 06:40 Magnesium 2.3 mg/dL (1.9-2.7) 11/15/17 09:20 Total Bilirubin 0.3 mg/dL (0.3-1.0) 11/24/17 05:50 AST 18 U/L (13-39) 11/24/17 05:50 ALT 38 U/L (7-52) 11/24/17 05:50 Alkaline Phosphatase 63 U/L (34-104) 11/24/17 05:50 Troponin I 0.19 ng/mL (0.01-0.05) H* 11/15/17 09:01 B-Natriuretic Peptide 159.0 pg/mL (5.0-100.0) H 11/25/17 06:50 Total Protein 4.8 gm/dL (6.0-8.3) L 11/24/17 05:50 Albumin 2.2 gm/dL (4.2-5.5) L 11/24/17 05:50 Globulin 2.6 gm/dL 11/24/17 05:50 Albumin/Globulin Ratio 0.9 (1.0-1.8) L 11/24/17 05:50 Triglycerides 201 mg/dL (<150) H 11/15/17 09:20 Cholesterol 75 mg/dL (<200) 11/15/17 09:20 LDL Cholesterol Direct 8 mg/dL (75-193) L 11/15/17 09:20 HDL Cholesterol 9 mg/dL (23-92) L 11/15/17 09:20 TSH 0.75 uIU/ml (0.34-5.60) 11/15/17 09:20 Hepatitis A IgM Ab Negative (Negative) 11/17/17 17:40 Hep Bs Antigen Negative (Negative) 11/17/17 17:40 Hep B Core IgM Ab Negative (Negative) 11/17/17 17:40 Hepatitis C Antibody <0.1 s/co ratio (0.0-0.9) 11/17/17 17:40 - Physical Exam Vitals and I&O: Vital Signs Temp 98.2 F 11/29/17 04:00 Pulse 90 11/29/17 07:16 Resp 14 11/29/17 07:16 BP 146/72 11/29/17 04:00 Pulse Ox 98 11/29/17 07:16 Intake & Output 11/28/17 11/29/17 11/29/17 18:59 06:59 18:59 Intake Total 1070 1000 Output Total 875 600 Balance 195 400 Weight (lbs) 80.286 kg 79.469 kg Intake: Intake, IV Amount 350 300 Levofloxacin 250mg/50mL 50 250 mg In Premix Fluid 1 bag @ 50 mls/hr IV Q24H [facility] Rx#:[id number] Linezolid 600mg/300mL 600 300 300 mg In 300 ml @ 200 mls/ hr IV Q12HR@0900,2100 [facility] Rx#:[id number] Oral 720 Tube Feeding 700 Output: Urine 875 600 Other: # Bowel Movements 0 0 Active Medications: Current Medications Acetaminophen (Tylenol 650mg Supp) 650 mg RC Q4H PRN PRN Reason: Fever > 101 Stop: 01/14/18 12:49 Albuterol/Ipratropium (Duoneb Neb) 3 ml HHN Q6HRT [facility] Stop: 01/27/18 18:59 Last Admin: 11/29/17 07:09 Dose: 3 ml Amlodipine Besylate (Norvasc) 5 mg PO HS [facility] Stop: 01/14/18 20:59 Last Admin: 11/28/17 22:39 Dose: 5 mg Aspirin (Aspirin Chewable) 81 mg PO DAILY [facility] Stop: 01/15/18 08:59 Last Admin: 11/28/17 08:12 Dose: 81 mg Atorvastatin Calcium (Lipitor) 20 mg PO HS [facility] Stop: 01/14/18 22:59 Last Admin: 11/28/17 22:39 Dose: 20 mg Carvedilol (Coreg) 3.125 mg PO BID [facility] Stop: 01/14/18 16:59 Last Admin: 11/28/17 17:24 Dose: 3.125 mg [place] Oil/[place] Balsam/Trypsin (Venelex) 1 appl TP DAILY [facility] Stop: 01/25/18 15:44 Last Admin: 11/28/17 08:14 Dose: 1 appl Diltiazem HCl (Cardizem) 20 mg IVP Q4HR PRN PRN Reason: HR above 110 Stop: 01/23/18 08:24 Fluconazole (Diflucan) 100 mg PO DAILY [facility] Stop: 01/17/18 08:59 Last Admin: 11/28/17 08:12 Dose: 100 mg Glucagon (Glucagen) 1 mg IM PRN PRN PRN Reason: hypoglycemia Stop: 01/14/18 16:44 Diltiazem HCl 125 mg/ Dextrose 125 mls @ 10 mls/hr IV TITR [facility]; 10 MG/HR PRN Reason: Protocol Stop: 01/14/18 11:44 Last Titration: 11/16/17 03:00 Dose: 0 mg/hr, 0 mls/hr Levofloxacin 250 mg/ (Miscellaneous) 50 mls @ 50 mls/hr IV Q24H [facility] Stop: 01/15/18 09:59 Last Infusion: 11/28/17 18:43 Dose: Infused Linezolid (Zyvox) 600 mg in 300 mls @ 200 mls/hr IV Q12HR@0900,2100 [facility] Stop: 01/16/18 11:59 Last Infusion: 11/29/17 00:19 Dose: Infused Sodium Chloride (Nacl 0.45%) 1,000 mls @ 75 mls/hr IV .[id number] [facility] Stop: 01/19/18 22:18 Last Admin: 11/27/17 21:46 Dose: 25 mls/hr Insulin Aspart (Novolog Insulin Sliding Scale) 0 units SUBQ Q6HR [facility] PRN Reason: Protocol Stop: 01/28/18 05:59 Last Admin: 11/29/17 07:08 Dose: 3 units Insulin Detemir (Levemir Insulin) 14 units SUBQ BID [facility] PRN Reason: Protocol Stop: 01/20/18 16:59 Last Admin: 11/28/17 17:24 Dose: 14 units Methylprednisolone Sodium Succinate (Solu-Medrol) 20 mg IVP DAILY [facility] Stop: 01/24/18 08:59 Last Admin: 11/28/17 08:12 Dose: 20 mg Mirtazapine (Remeron) 30 mg PO HS [facility] Stop: 01/14/18 22:59 Last Admin: 11/28/17 22:40 Dose: 30 mg Miscellaneous (Probiotic Screen) 1 ea MC PRN PRN PRN Reason: PROTOCOL Stop: 01/19/18 16:29 Neomycin/Polymyxin/Bacitracin (Triple Antibiotic Ointment) 1 appl TP DAILY [facility] Stop: 01/15/18 08:59 Last Admin: 11/28/17 08:15 Dose: 1 appl Olanzapine (Zyprexa) 10 mg PO TID [facility] PRN Reason: Protocol Stop: 01/14/18 20:59 Last Admin: 11/28/17 22:40 Dose: 10 mg Pantoprazole Sodium (Protonix) 40 mg PO DAILY [facility] Stop: 01/15/18 08:59 Last Admin: 11/28/17 08:12 Dose: 40 mg Rivaroxaban (Xarelto) 5 mg PO DAILY [facility] Stop: 01/21/18 15:59 Last Admin: 11/28/17 08:12 Dose: 5 mg General: Alert, Other (confused) HEENT: Atraumatic, PERRLA Neck: Supple Cardiovascular: Regular rate, Other (multiple PVC) Lungs: Other (rhonchi) Abdomen: Bowel sounds, Soft (+Gtube), Obese, Other (G tube site c/d/i) Extremities: Edema Psych/Mental Status: Other (lethargic) - Procedures Procedures: Procedures Procedure Code Date INSERT TUNNELED CV CATH [id number] 11/15/17 INSERTION OF INFUSION DEV INTO R SUBCLAV VEIN, PERC APPROACH [id number] 11/15/17 Assessment/Plan - Problem List Patient Problems: All Active Problems SEVERE RESPIRATORY DISTRESS (Acute) - Assessment Assessment: # CHF # CAD # Afib on xeralto # CKD # Sepsis # Dementia vs delirium G tube placed on 11/26/17, and pt tolerating feeds at 50cc/hr. Plan: - cont G tube feeding, titrate to goal rate of 50cc/hr - hold for residuals > 150cc - flush G tube with 100cc every 6 hours - cont home dose xeralto - antibiotics as per primary GI to see as needed, please call with any questions
[2017-11-29] MEDS: Aspirin 81mg Chewable Tab PO SCH (09:33)
[2017-11-29] MEDS: Pantoprazole 40 mg EC Tab PO SCH (09:34)
[2017-11-29] MEDS: methylPREDNISolone SS 40 mg Vial IVP SCH (09:34)
[2017-11-29] MEDS: Insulin Detemir 100 units/mL 10mL Vial SUBQ SCH ×2 (09:50→16:54)
[2017-11-29] MEDS: Linezolid 600mg/300mL 600 MG/300 ML BAG IV SCH ×2 (09:56→21:35)
[2017-11-29] MEDS: Venelex 60gm Tube TP SCH (10:00)
[2017-11-29] MEDS: Triple Antibiotic Ointment 28gm tube TP SCH (10:01)
[2017-11-29] MEDS: Levofloxacin 250mg/50mL 250 MG in Premix Fluid 1 BAG IV SCH (11:02)
--- NOTE | 2017-11-29 14:59 | Pathology Report ---
[id number] Collection Date: 11/26/2017 Surgeon: Dr. Krystle Lee Specimen Description: Gastric lining biopsy Gross Description: Received in formalin is a single fragment of guajardo soft tissue measuring 0.2 cm in greatest dimension. Totally submitted in one cassette. Microscopic Description: The histologic sections show gastric mucosa with mild chronic inflammation present consisting of lymphocytes and plasma cells. The Giemsa stain shows no evidence for Helicobacter pylori. Diagnosis: 1. Mild chronic gastritis, gastric lining biopsy. 2. The Giemsa stain is negative for Helicobacter pylori. [facility]# [id number]
--- NOTE | 2017-11-29 18:29 | Internal Medicine Prog Note ---
Internal Medicine Subjective - Subjective Service Date: 11/29/17 Patient seen and examined:: with staff (HE HAS BEEN TOLERATING HIS GT FEEDING WELL) Patient is:: awake, non-verbal, in bed, confused, congested Per staff patient has:: no adverse event (HE HAS POOR APETITE) Internal Medicine Objective - Results Result Diagrams: 11/29/17 06:40 11/29/17 06:40 Recent Labs: Laboratory Last Values WBC 18.7 Th/cmm (4.8-10.8) H D 11/29/17 06:40 RBC 2.82 Mil/cmm (3.80-5.80) L 11/29/17 06:40 Hgb 8.4 gm/dL (12-16) L 11/29/17 06:40 Hct 25.0 % (41.0-60) L D 11/29/17 06:40 MCV 89.5 fl (80-99) 11/29/17 06:40 MCH 29.9 pg (27.0-31.0) 11/29/17 06:40 MCHC Differential 33.4 pg (28.0-36.0) 11/29/17 06:40 RDW 13.9 % (11.5-20.0) 11/29/17 06:40 Plt Count 127 Th/cmm (150-400) L 11/29/17 06:40 MPV 11.2 fl 11/29/17 06:40 Neutrophils % 94.7 % (40.0-80.0) H 11/17/17 07:45 Band Neutrophils % 2 % (0-10) 11/29/17 06:40 Lymphocytes % 3.7 % (20.0-50.0) L 11/17/17 07:45 Monocytes % 1.6 % (2.0-10.0) L 11/17/17 07:45 Eosinophils % 0.0 % (0.0-5.0) 11/17/17 07:45 Basophils % 0.0 % (0.0-2.0) 11/15/17 09:01 Neutrophils (Manual) 94 % (40-80) H 11/29/17 06:40 Lymphocytes 2 % (20-50) L 11/29/17 06:40 Monocytes 2 % (2-10) 11/29/17 06:40 Platelet Estimate SLIGHT DECREASED (NORMAL) 11/19/17 05:30 PT 12.3 SECONDS (9.5-11.5) H 11/25/17 06:50 INR 1.17 (0.5-1.4) 11/25/17 06:50 Specimen Source Arterial 11/18/17 10:29 Sample Site Right Radial 11/18/17 10:29 pH 7.48 (7.35-7.45) H 11/18/17 10:29 pCO2 29.0 mmHg (35.0-45.0) L 11/18/17 10:29 pO2 81.0 mmHg (80.0-100.0) 11/18/17 10:29 HCO3 24.1 mEq/L (20.0-26.0) 11/18/17 10:29 Base Excess -1.0 mEq/L (-3.0-3.0) 11/18/17 10:29 O2 Saturation 97.0 % (92.0-100.0) 11/18/17 10:29 Mario Test PASS 11/18/17 10:29 Vent Rate NA 11/15/17 08:47 Inspired O2 28 11/18/17 10:29 Tidal Volume NA 11/15/17 08:47 PEEP NA 11/15/17 08:47 Pressure (ins/psv/peep) NA 11/15/17 08:47 Critical Value PW 11/18/17 10:29 Sodium 140 mEq/L (136-145) 11/29/17 06:40 Potassium 3.6 mEq/L (3.5-5.1) 11/29/17 06:40 Chloride 109 mEq/L (98-107) H 11/29/17 06:40 Carbon Dioxide 25.3 mEq/L (21.0-31.0) 11/29/17 06:40 Anion Gap 9.3 (7.0-16.0) 11/29/17 06:40 BUN 77 mg/dL (7-25) H 11/29/17 06:40 Creatinine 1.2 mg/dL (0.7-1.3) 11/29/17 06:40 Est GFR ( Amer) TNP 11/29/17 06:40 Est GFR (Non-Af Amer) TNP 11/29/17 06:40 BUN/Creatinine Ratio 64.2 11/29/17 06:40 Glucose 223 mg/dL (70-105) H 11/29/17 06:40 POC Glucose 156 MG/DL (70 - 105) H 11/29/17 16:37 Hemoglobin A1c % 8.3 % (4.0-6.0) H 11/15/17 09:20 Whole Bld Lactic Acid 6.37 mmol/L (0.60-1.99) H* 11/15/17 11:20 Calcium 8.2 mg/dL (8.6-10.3) L 11/29/17 06:40 Magnesium 2.3 mg/dL (1.9-2.7) 11/15/17 09:20 Total Bilirubin 0.3 mg/dL (0.3-1.0) 11/24/17 05:50 AST 18 U/L (13-39) 11/24/17 05:50 ALT 38 U/L (7-52) 11/24/17 05:50 Alkaline Phosphatase 63 U/L (34-104) 11/24/17 05:50 Troponin I 0.19 ng/mL (0.01-0.05) H* 11/15/17 09:01 B-Natriuretic Peptide 159.0 pg/mL (5.0-100.0) H 11/25/17 06:50 Total Protein 4.8 gm/dL (6.0-8.3) L 11/24/17 05:50 Albumin 2.2 gm/dL (4.2-5.5) L 11/24/17 05:50 Globulin 2.6 gm/dL 11/24/17 05:50 Albumin/Globulin Ratio 0.9 (1.0-1.8) L 11/24/17 05:50 Triglycerides 201 mg/dL (<150) H 11/15/17 09:20 Cholesterol 75 mg/dL (<200) 11/15/17 09:20 LDL Cholesterol Direct 8 mg/dL (75-193) L 11/15/17 09:20 HDL Cholesterol 9 mg/dL (23-92) L 11/15/17 09:20 TSH 0.75 uIU/ml (0.34-5.60) 11/15/17 09:20 Hepatitis A IgM Ab Negative (Negative) 11/17/17 17:40 Hep Bs Antigen Negative (Negative) 11/17/17 17:40 Hep B Core IgM Ab Negative (Negative) 11/17/17 17:40 Hepatitis C Antibody <0.1 s/co ratio (0.0-0.9) 11/17/17 17:40 - Physical Exam Vitals and I&O: Vital Signs Temp 96.2 F 11/29/17 08:00 Pulse 98 11/29/17 16:54 Resp 16 11/29/17 12:54 BP 134/72 11/29/17 16:54 Pulse Ox 100 11/29/17 12:54 Intake & Output 11/28/17 11/29/17 11/29/17 18:59 06:59 18:59 Intake Total 1070 1000 Output Total 875 600 Balance 195 400 Weight (lbs) 80.286 kg 79.469 kg Intake: Intake, IV Amount 350 300 Levofloxacin 250mg/50mL 50 250 mg In Premix Fluid 1 bag @ 50 mls/hr IV Q24H [facility] Rx#:[id number] Linezolid 600mg/300mL 600 300 300 mg In 300 ml @ 200 mls/ hr IV Q12HR@0900,2100 [facility] Rx#:[id number] Oral 720 Tube Feeding 700 Output: Urine 875 600 Other: # Bowel Movements 0 0 Active Medications: Current Medications Acetaminophen (Tylenol 650mg Supp) 650 mg RC Q4H PRN PRN Reason: Fever > 101 Stop: 01/14/18 12:49 Albuterol/Ipratropium (Duoneb Neb) 3 ml HHN Q6HRT [facility] Stop: 01/27/18 18:59 Last Admin: 11/29/17 12:50 Dose: 3 ml Amlodipine Besylate (Norvasc) 5 mg PO HS [facility] Stop: 01/14/18 20:59 Last Admin: 11/28/17 22:39 Dose: 5 mg Aspirin (Aspirin Chewable) 81 mg PO DAILY [facility] Stop: 01/15/18 08:59 Last Admin: 11/29/17 09:33 Dose: 81 mg Atorvastatin Calcium (Lipitor) 20 mg PO HS [facility] Stop: 01/14/18 22:59 Last Admin: 11/28/17 22:39 Dose: 20 mg Carvedilol (Coreg) 3.125 mg PO BID [facility] Stop: 01/14/18 16:59 Last Admin: 11/29/17 16:54 Dose: 3.125 mg [place] Oil/[place] Balsam/Trypsin (Venelex) 1 appl TP DAILY [facility] Stop: 01/25/18 15:44 Last Admin: 11/29/17 10:00 Dose: 1 appl Diltiazem HCl (Cardizem) 20 mg IVP Q4HR PRN PRN Reason: HR above 110 Stop: 01/23/18 08:24 Fluconazole (Diflucan) 100 mg PO DAILY [facility] Stop: 01/17/18 08:59 Last Admin: 11/29/17 09:34 Dose: 100 mg Glucagon (Glucagen) 1 mg IM PRN PRN PRN Reason: hypoglycemia Stop: 01/14/18 16:44 Diltiazem HCl 125 mg/ Dextrose 125 mls @ 10 mls/hr IV TITR [facility]AN; 10 MG/HR PRN Reason: Protocol Stop: 01/14/18 11:44 Last Titration: 11/16/17 03:00 Dose: 0 mg/hr, 0 mls/hr Levofloxacin 250 mg/ (Miscellaneous) 50 mls @ 50 mls/hr IV Q24H [facility] Stop: 01/15/18 09:59 Last Admin: 11/29/17 11:02 Dose: 50 mls/hr Linezolid (Zyvox) 600 mg in 300 mls @ 200 mls/hr IV Q12HR@0900,2100 [facility] Stop: 01/16/18 11:59 Last Admin: 11/29/17 09:56 Dose: 200 mls/hr Sodium Chloride (Nacl 0.45%) 1,000 mls @ 75 mls/hr IV .[id number] [facility] Stop: 01/19/18 22:18 Last Admin: 11/27/17 21:46 Dose: 25 mls/hr Insulin Aspart (Novolog Insulin Sliding Scale) 0 units SUBQ Q6HR [facility] PRN Reason: Protocol Stop: 01/28/18 05:59 Last Admin: 11/29/17 17:00 Dose: 3 units Insulin Detemir (Levemir Insulin) 14 units SUBQ BID [facility] PRN Reason: Protocol Stop: 01/20/18 16:59 Last Admin: 11/29/17 16:54 Dose: 14 units Methylprednisolone Sodium Succinate (Solu-Medrol) 20 mg IVP DAILY [facility] Stop: 01/24/18 08:59 Last Admin: 11/29/17 09:34 Dose: 20 mg Mirtazapine (Remeron) 30 mg PO HS [facility] Stop: 01/14/18 22:59 Last Admin: 11/28/17 22:40 Dose: 30 mg Miscellaneous (Probiotic Screen) 1 ea MC PRN PRN PRN Reason: PROTOCOL Stop: 01/19/18 16:29 Neomycin/Polymyxin/Bacitracin (Triple Antibiotic Ointment) 1 appl TP DAILY [facility] Stop: 01/15/18 08:59 Last Admin: 11/29/17 10:01 Dose: 1 appl Olanzapine (Zyprexa) 10 mg PO TID [facility] PRN Reason: Protocol Stop: 01/14/18 20:59 Last Admin: 11/29/17 13:09 Dose: 10 mg Pantoprazole Sodium (Protonix) 40 mg PO DAILY [facility] Stop: 01/15/18 08:59 Last Admin: 11/29/17 09:34 Dose: 40 mg Rivaroxaban (Xarelto) 5 mg PO DAILY [facility] Stop: 01/21/18 15:59 Last Admin: 11/29/17 09:35 Dose: 5 mg General: weak, demented HEENT: PERRLA, EOMI, anicteric sclerae, throat clear Neck: Supple, No JVD, No thyromegaly, No LAD Lungs: congested, ronchi Cardiovascular: Normal S2, other (IRRIGULAR) Extremities: clear Neurological: no change - Procedures Procedures: Procedures Procedure Code Date INSERT TUNNELED CV CATH [id number] 11/15/17 INSERTION OF INFUSION DEV INTO R SUBCLAV VEIN, PERC APPROACH [id number] 11/15/17 Internal Medicine Assmt/Plan - Assessment Assessment: 1.PNEUMONIA. 2.COPD. 3.PAFIB 4.DEMENTIA. 5.PENNY. 6.DEHYDRATION. 7.DM 8.SP GT PLACEMENT. - Plan Plan: CONTINUE ON CURRENT MEDICATION AND DIET.OK TO BE TRANSFERRED TO [facility] IF BED IS AVAILABLE. Nutritional Asmnt/Malnutr-PDOC - Dietary Evaluation Malnutrition Findings (Please click <Entered> for more info): Nutritional Asmnt/Malnutrition Start: 11/16/17 14: 06 Text: Status: Complete Freq: Document 11/16/17 14:06 [email or web address] (Rec: 11/16/17 14:20 [email or web address]) Nutritional Asmnt/Malnutrition Patient General Information Nutritional Screening High Risk Consult Diagnosis actute renal failure, sepsis, PNA Pertinent Medical Hx/Surgical Hx hyperlipidemia, CHF, HTN, COPD , ICD device Subjective Information Consult received for admit blood sugar 263. Pt seen sleeping in bed at the time of visit. Spoke with RN, pt refused breakfast this morning possible d/t weakness and being sick. Current Diet Order/ Nutrition Support low chlesterol 300gm Pertinent Medications glucagen, novolog, remeron, nacl 0.9% Pertinent Labs 11/15 Na 137, K 4.6, Cl 110, BUN 105, Cr 2.9, GLucose 295, POC 246-370 since admit, a1c 8.3, calcium 9.2 Nutritional Hx/Data Height 1.85 m Height (Calculated Centimeters) 185.4 Current Weight (lbs) 62.55 kg Weight (Calculated Kilograms) 62.6 Weight (Calculated Grams) 74939.4 Belva Body Weight 184 % Belva Body Weight 75 Body Mass Index (BMI) 18.1 Weight Status Underweight GI Symptoms GI Symptoms None Last BM no record Skin Integrity/Comment: pressure area to heels Current %PO Negligible < 25% Estimated Nutritional Goals Calories/Kcals/Kg 25-30 Kcals Calculated [id number] based on IBW considering underweight and sepsis Protein g/k-1.2 Protein Calculated 84-100 Fluid: ml 2089-250ml (1ml/kcal) Nutritional Problem 2. Problem Problem altered nutrition related lab values Etiology acute renal failure, hx of DM Signs/Symptoms: BUN 105, Cr 2.9, GLucose 295, POC 246-370, a1c 8.3, 1. Problem Problem increased nutrition needs ( calorie and protein) Etiology increased metabolic demand for healing and underweight Signs/Symptoms: dx of sepsis and PNA, BMI 18.2 Malnutrition Alert Protein-Calorie Malnutrition N/A Is there a minimum of two criteria No selected? Query Text:Check all the applicable criteria. A minimum of two criteria are recommended for diagnosis of either severe or non-severe malnutrition. Intervention/Recommendation Comments 1. Recommend modify diet to CCHO, low cholesteral diet for optimal glycemic control. RN made aware, will talk to MD 2. Monitor PO intake, wt, labs and skin integrity 3. F/U as high risk in 2-3 days, 11/18-11/19 Expected Outcomes/Goals Expected Outcomes/Goals 1. PO intake to meet at least 75% of nutritional needs. 2. Wt stability, skin to remain intact, labs to improve
[2017-11-29] MEDS: Atorvastatin Calcium 10 MG TAB PO SCH (21:28)
[2017-11-30] MEDS: INSULIN ASPART SLIDING SCALE 100 UNITS/ML UNIT SUBQ SCH ×4 (00:12→18:14)
[2017-11-30] MEDS: Albuterol/Ipratropium Neb 3 ML AERS HHN SCH ×4 (01:13→19:45)
[2017-11-30 06:46] LABS: MEAN CELL VOLUME 89.5 fl (80-99); MEAN CORPUSCULAR HEMOGLOBIN 30.7 pg (27.0-31.0); MEAN CORPUSCULAR HGB CONC 34.3 pg (28.0-36.0); MEAN PLATELET VOLUME 10.9 fl; PLATELET COUNT 111 Th/cmm (150-400); RED BLOOD COUNT 2.55 Mil/cmm (3.80-5.80); RED CELL DISTRIBUTION WIDTH 13.5 % (11.5-20.0)
[2017-11-30 06:50] LABS: WHITE BLOOD COUNT 18.3 Th/cmm (4.8-10.8)
[2017-11-30 06:51] LABS: HEMATOCRIT 22.8 % (41.0-60); HEMOGLOBIN 7.8 gm/dL (12-16)
--- NOTE | 2017-11-30 07:29 | Consultation ---
DATE OF CONSULTATION: 11/24/[address] Frost. HISTORY AND PHYSICAL: This is a 77-year-old male patient, who was brought to the hospital with respiratory failure. The patient developed acute renal failure. Following this, the patient had a Matthew catheter for dialysis. The patient developed atrial fibrillation with rapid ventricular response and hence Cardiology consult is requested. PAST MEDICAL HISTORY: Acute respiratory failure, aspiration pneumonia, COPD, hypertension, congestive heart failure, diastolic dysfunction, diabetes mellitus type 2, diabetic CKD stage V, end-stage renal disease on dialysis, dementia, lactic acidosis, septicemia, dysphagia with PEG placement, and protein-calorie malnutrition. FAMILY HISTORY: Unremarkable. SOCIAL HISTORY: No history of smoking or alcohol abuse. ALLERGIES: No known allergies. PHYSICAL EXAMINATION: VITAL SIGNS: Blood pressure 130/80; pulse 150, irregular; respirations 28. HEAD: Normocephalic. No lumps or bumps. EYES: Pupils are equal and reactive to light. Fundi show AV nicking, sclerae white, conjunctivae pink. NECK: Carotid 2+. Normal upstroke. JVD 10 cm above sternal angle. Thyroid not palpable. Lymph nodes not palpable. CHEST: Shows increased AP diameter. No kyphosis, scoliosis. LUNGS: Bilateral bronchovesicular breath sounds. Bilateral wheezing, rhonchi, prolonged expiration. HEART: PMI fifth intercostal space with lateral to midclavicular line. S1, S2, S3, S4. Soft systolic murmur. ABDOMEN: Soft. Liver and spleen not palpable. No organomegaly. Bowel sounds active. NEUROLOGIC: Unremarkable. EXTREMITIES: Peripheral pulses 2+. No pedal edema. CLINICAL IMPRESSION: Paroxysmal atrial fibrillation, acute respiratory failure, aspiration pneumonia, chronic obstructive pulmonary disease with acute exacerbation, hypertension, congestive heart failure, diastolic dysfunction, diabetes mellitus type 2, diabetic chronic kidney disease stage V, end-stage renal disease on dialysis, dementia, lactic acidosis, dysphagia with PEG placement, and protein-calorie malnutrition. PLAN: The patient to continue present care, control the heart rate. The patient will be on anticoagulation. JOB# [id number]
[2017-11-30 07:44] LABS: NEUTROPHILS 92 % (40-80); TOTAL CELLS COUNTED 100
[2017-11-30 07:45] LABS: BAND NEUTROPHILE 4 % (0-10); EOSINOPHIL 1 % (0-5); LYMPHOCYTE 2 % (20-50); MONOCYTE 1 % (2-10)
[2017-11-30] MEDS: Insulin Detemir 100 units/mL 10mL Vial SUBQ SCH ×2 (09:59→18:13)
[2017-11-30] MEDS: methylPREDNISolone SS 40 mg Vial IVP SCH (10:00)
[2017-11-30] MEDS: Pantoprazole 40 mg EC Tab PO SCH (10:01)
[2017-11-30] MEDS: Aspirin 81mg Chewable Tab PO SCH (10:03)
[2017-11-30] MEDS: Venelex 60gm Tube TP SCH (10:04)
[2017-11-30] MEDS: Triple Antibiotic Ointment 28gm tube TP SCH (10:04)
[2017-11-30] MEDS: Linezolid 600mg/300mL 600 MG/300 ML BAG IV SCH ×2 (10:05→21:28)
[2017-11-30] MEDS: Levofloxacin 250mg/50mL 250 MG in Premix Fluid 1 BAG IV SCH (10:07)
--- NOTE | 2017-11-30 12:54 | Cardiology ---
11/25/[address] Frost. M-MODE ECHOCARDIOGRAM: Mitral valve, anterior leaflet of mitral valve shows normal excursion, EF velocity. Posterior leaflet of mitral valve shows normal excursion. Left ventricular posterior shows increased thickness, normal excursion. Interventricular septum shows increased thickness, normal excursion, hypertrophy of the left ventricle, ejection fraction 50%. Left atrium normal. Aortic root shows normal dimension, normal excursion of aortic leaflets. CONCLUSION: Hypertrophy of the left ventricle, ejection fraction 50%. 2D ECHO: Long axis views show normal size left ventricle with hypertrophy of the left ventricle. Left atrium normal. Aortic root shows normal dimension, normal excursion of aortic leaflets. Short axis view of mitral valve normal. Short axis view of aortic valve normal. Apical four chamber view showed normal sized left ventricle with hypertrophy of the left ventricle. Left atrium, normal right ventricular cavity, right atrium normal. No pericardial effusion. CONCLUSION: Hypertrophy of the left ventricle, ejection fraction 50%. Doppler study shows trace pulmonary regurgitation, mild tricuspid regurgitation, mild aortic regurgitation. [facility]# [id number]
--- NOTE | 2017-11-30 19:20 | Internal Medicine Prog Note ---
Internal Medicine Subjective - Subjective Service Date: 11/30/17 Patient seen and examined:: with staff (HE FELLS BETTER) Patient is:: awake, non-verbal, in bed, confused, congested Per staff patient has:: no adverse event (HE HAS POOR APETITE) Internal Medicine Objective - Results Result Diagrams: 11/30/17 05:10 11/29/17 06:40 Recent Labs: Laboratory Last Values WBC 18.3 Th/cmm (4.8-10.8) H 11/30/17 05:10 RBC 2.55 Mil/cmm (3.80-5.80) L 11/30/17 05:10 Hgb 7.8 gm/dL (12-16) L* 11/30/17 05:10 Hct 22.8 % (41.0-60) L 11/30/17 05:10 MCV 89.5 fl (80-99) 11/30/17 05:10 MCH 30.7 pg (27.0-31.0) 11/30/17 05:10 MCHC Differential 34.3 pg (28.0-36.0) 11/30/17 05:10 RDW 13.5 % (11.5-20.0) 11/30/17 05:10 Plt Count 111 Th/cmm (150-400) L 11/30/17 05:10 MPV 10.9 fl 11/30/17 05:10 Neutrophils % 94.7 % (40.0-80.0) H 11/17/17 07:45 Band Neutrophils % 4 % (0-10) 11/30/17 05:10 Lymphocytes % 3.7 % (20.0-50.0) L 11/17/17 07:45 Monocytes % 1.6 % (2.0-10.0) L 11/17/17 07:45 Eosinophils % 0.0 % (0.0-5.0) 11/17/17 07:45 Basophils % 0.0 % (0.0-2.0) 11/15/17 09:01 Neutrophils (Manual) 92 % (40-80) H 11/30/17 05:10 Lymphocytes 2 % (20-50) L 11/30/17 05:10 Monocytes 1 % (2-10) L 11/30/17 05:10 Eosinophils 1 % (0-5) 11/30/17 05:10 Platelet Estimate SLIGHT DECREASED (NORMAL) 11/19/17 05:30 PT 12.3 SECONDS (9.5-11.5) H 11/25/17 06:50 INR 1.17 (0.5-1.4) 11/25/17 06:50 Specimen Source Arterial 11/18/17 10:29 Sample Site Right Radial 11/18/17 10:29 pH 7.48 (7.35-7.45) H 11/18/17 10:29 pCO2 29.0 mmHg (35.0-45.0) L 11/18/17 10:29 pO2 81.0 mmHg (80.0-100.0) 11/18/17 10:29 HCO3 24.1 mEq/L (20.0-26.0) 11/18/17 10:29 Base Excess -1.0 mEq/L (-3.0-3.0) 11/18/17 10:29 O2 Saturation 97.0 % (92.0-100.0) 11/18/17 10:29 Mario Test PASS 11/18/17 10:29 Vent Rate NA 11/15/17 08:47 Inspired O2 28 11/18/17 10:29 Tidal Volume NA 11/15/17 08:47 PEEP NA 11/15/17 08:47 Pressure (ins/psv/peep) NA 11/15/17 08:47 Critical Value PW 11/18/17 10:29 Sodium 140 mEq/L (136-145) 11/29/17 06:40 Potassium 3.6 mEq/L (3.5-5.1) 11/29/17 06:40 Chloride 109 mEq/L (98-107) H 11/29/17 06:40 Carbon Dioxide 25.3 mEq/L (21.0-31.0) 11/29/17 06:40 Anion Gap 9.3 (7.0-16.0) 11/29/17 06:40 BUN 77 mg/dL (7-25) H 11/29/17 06:40 Creatinine 1.2 mg/dL (0.7-1.3) 11/29/17 06:40 Est GFR ( Amer) TNP 11/29/17 06:40 Est GFR (Non-Af Amer) TNP 11/29/17 06:40 BUN/Creatinine Ratio 64.2 11/29/17 06:40 Glucose 223 mg/dL (70-105) H 11/29/17 06:40 POC Glucose 235 MG/DL (70 - 105) H 11/30/17 17:08 Hemoglobin A1c % 8.3 % (4.0-6.0) H 11/15/17 09:20 Whole Bld Lactic Acid 6.37 mmol/L (0.60-1.99) H* 11/15/17 11:20 Calcium 8.2 mg/dL (8.6-10.3) L 11/29/17 06:40 Magnesium 2.3 mg/dL (1.9-2.7) 11/15/17 09:20 Total Bilirubin 0.3 mg/dL (0.3-1.0) 11/24/17 05:50 AST 18 U/L (13-39) 11/24/17 05:50 ALT 38 U/L (7-52) 11/24/17 05:50 Alkaline Phosphatase 63 U/L (34-104) 11/24/17 05:50 Troponin I 0.19 ng/mL (0.01-0.05) H* 11/15/17 09:01 B-Natriuretic Peptide 159.0 pg/mL (5.0-100.0) H 11/25/17 06:50 Total Protein 4.8 gm/dL (6.0-8.3) L 11/24/17 05:50 Albumin 2.2 gm/dL (4.2-5.5) L 11/24/17 05:50 Globulin 2.6 gm/dL 11/24/17 05:50 Albumin/Globulin Ratio 0.9 (1.0-1.8) L 11/24/17 05:50 Triglycerides 201 mg/dL (<150) H 11/15/17 09:20 Cholesterol 75 mg/dL (<200) 11/15/17 09:20 LDL Cholesterol Direct 8 mg/dL (75-193) L 11/15/17 09:20 HDL Cholesterol 9 mg/dL (23-92) L 11/15/17 09:20 TSH 0.75 uIU/ml (0.34-5.60) 11/15/17 09:20 Hepatitis A IgM Ab Negative (Negative) 11/17/17 17:40 Hep Bs Antigen Negative (Negative) 11/17/17 17:40 Hep B Core IgM Ab Negative (Negative) 11/17/17 17:40 Hepatitis C Antibody <0.1 s/co ratio (0.0-0.9) 11/17/17 17:40 Blood Type A POSITIVE 11/30/17 12:30 Antibody Screen NEGATIVE 11/30/17 12:30 Crossmatch See Detail 11/30/17 12:30 - Physical Exam Vitals and I&O: Vital Signs Temp 97.0 F 11/30/17 16:00 Pulse 87 11/30/17 18:13 Resp 18 11/30/17 16:00 BP 118/65 11/30/17 18:13 Pulse Ox 100 11/30/17 16:00 Intake & Output 11/30/17 11/30/17 12/01/17 06:59 18:59 06:59 Intake Total 2000 Output Total 750 Balance 1250 Weight (lbs) 77.201 kg Intake: Intake, IV Amount 1300 Linezolid 600mg/300mL 600 300 mg In 300 ml @ 200 mls/ hr IV Q12HR@0900,2100 [facility] Rx#:[id number] Sodium Chloride 0.45% 1, 1000 000 ml @ 75 mls/hr IV . [id number] [facility] Rx#:[id number] Tube Feeding 700 Output: Urine 750 Other: # Bowel Movements 0 Active Medications: Current Medications Acetaminophen (Tylenol 650mg Supp) 650 mg RC Q4H PRN PRN Reason: Fever > 101 Stop: 01/14/18 12:49 Albuterol/Ipratropium (Duoneb Neb) 3 ml HHN Q6HRT [facility] Stop: 01/27/18 18:59 Last Admin: 11/30/17 12:57 Dose: 3 ml Amlodipine Besylate (Norvasc) 5 mg PO HS [facility] Stop: 01/14/18 20:59 Last Admin: 11/29/17 21:28 Dose: 5 mg Aspirin (Aspirin Chewable) 81 mg PO DAILY [facility] Stop: 01/15/18 08:59 Last Admin: 11/30/17 10:03 Dose: 81 mg Atorvastatin Calcium (Lipitor) 20 mg PO HS [facility] Stop: 01/14/18 22:59 Last Admin: 11/29/17 21:28 Dose: 20 mg Carvedilol (Coreg) 3.125 mg PO BID [facility] Stop: 01/14/18 16:59 Last Admin: 11/30/17 18:13 Dose: 3.125 mg [place] Oil/[place] Balsam/Trypsin (Venelex) 1 appl TP DAILY [facility] Stop: 01/25/18 15:44 Last Admin: 11/30/17 10:04 Dose: 1 appl Diltiazem HCl (Cardizem) 20 mg IVP Q4HR PRN PRN Reason: HR above 110 Stop: 01/23/18 08:24 Fluconazole (Diflucan) 100 mg PO DAILY [facility] Stop: 01/17/18 08:59 Last Admin: 11/30/17 10:03 Dose: 100 mg Glucagon (Glucagen) 1 mg IM PRN PRN PRN Reason: hypoglycemia Stop: 01/14/18 16:44 Diltiazem HCl 125 mg/ Dextrose 125 mls @ 10 mls/hr IV TITR [facility]; 10 MG/HR PRN Reason: Protocol Stop: 01/14/18 11:44 Last Titration: 11/16/17 03:00 Dose: 0 mg/hr, 0 mls/hr Levofloxacin 250 mg/ (Miscellaneous) 50 mls @ 50 mls/hr IV Q24H [facility] Stop: 01/15/18 09:59 Last Admin: 11/30/17 10:07 Dose: 50 mls/hr Linezolid (Zyvox) 600 mg in 300 mls @ 200 mls/hr IV Q12HR@0900,2100 [facility] Stop: 01/16/18 11:59 Last Admin: 11/30/17 10:05 Dose: 200 mls/hr Sodium Chloride (Nacl 0.45%) 1,000 mls @ 75 mls/hr IV .[id number] [facility] Stop: 01/19/18 22:18 Last Infusion: 11/30/17 06:23 Dose: Infused Insulin Aspart (Novolog Insulin Sliding Scale) 0 units SUBQ Q6HR [facility] PRN Reason: Protocol Stop: 01/28/18 05:59 Last Admin: 11/30/17 18:14 Dose: 5 units Insulin Detemir (Levemir Insulin) 14 units SUBQ BID [facility] PRN Reason: Protocol Stop: 01/20/18 16:59 Last Admin: 11/30/17 18:13 Dose: 14 units Methylprednisolone Sodium Succinate (Solu-Medrol) 20 mg IVP DAILY [facility] Stop: 01/24/18 08:59 Last Admin: 11/30/17 10:00 Dose: 20 mg Mirtazapine (Remeron) 30 mg PO HS [facility] Stop: 01/14/18 22:59 Last Admin: 11/29/17 21:28 Dose: 30 mg Miscellaneous (Probiotic Screen) 1 ea MC PRN PRN PRN Reason: PROTOCOL Stop: 01/19/18 16:29 Neomycin/Polymyxin/Bacitracin (Triple Antibiotic Ointment) 1 appl TP DAILY [facility] Stop: 01/15/18 08:59 Last Admin: 11/30/17 10:04 Dose: 1 appl Olanzapine (Zyprexa) 10 mg PO TID [facility] PRN Reason: Protocol Stop: 01/14/18 20:59 Last Admin: 11/30/17 13:07 Dose: 10 mg Pantoprazole Sodium (Protonix) 40 mg PO DAILY [facility] Stop: 01/15/18 08:59 Last Admin: 11/30/17 10:01 Dose: 40 mg Rivaroxaban (Xarelto) 5 mg PO DAILY [facility] Stop: 01/21/18 15:59 Last Admin: 11/30/17 10:04 Dose: 5 mg General: weak, demented HEENT: PERRLA, EOMI, anicteric sclerae, throat clear Neck: Supple, No JVD, No thyromegaly, No LAD Lungs: congested, ronchi Cardiovascular: Normal S2, other (IRRIGULAR) Extremities: clear Neurological: no change - Procedures Procedures: Procedures Procedure Code Date INSERT TUNNELED CV CATH [id number] 11/15/17 INSERTION OF INFUSION DEV INTO R SUBCLAV VEIN, PERC APPROACH [id number] 11/15/17 Internal Medicine Assmt/Plan - Assessment Assessment: 1.PNEUMONIA. 2.COPD. 3.PAFIB 4.DEMENTIA. 5.PENNY. 6.DEHYDRATION. 7.DM 8.SP GT PLACEMENT. - Plan Plan: CONTINUE ON CURRENT MEDICATION AND DIET.OK TO BE TRANSFERRED TO [facility] IF BED IS AVAILABLE.TRANSFUSE 2 UNITS BLOOD. Nutritional Asmnt/Malnutr-PDOC - Dietary Evaluation Malnutrition Findings (Please click <Entered> for more info): Nutritional Asmnt/Malnutrition Start: 11/16/17 14: 06 Text: Status: Complete Freq: Document 11/16/17 14:06 LCHENG (Rec: 11/16/17 14:20 [email or web address]) Nutritional Asmnt/Malnutrition Patient General Information Nutritional Screening High Risk Consult Diagnosis actute renal failure, sepsis, PNA Pertinent Medical Hx/Surgical Hx hyperlipidemia, CHF, HTN, COPD , ICD device Subjective Information Consult received for admit blood sugar 263. Pt seen sleeping in bed at the time of visit. Spoke with RN, pt refused breakfast this morning possible d/t weakness and being sick. Current Diet Order/ Nutrition Support low chlesterol 300gm Pertinent Medications glucagen, novolog, remeron, nacl 0.9% Pertinent Labs 11/15 Na 137, K 4.6, Cl 110, BUN 105, Cr 2.9, GLucose 295, POC 246-370 since admit, a1c 8.3, calcium 9.2 Nutritional Hx/Data Height 1.85 m Height (Calculated Centimeters) 185.4 Current Weight (lbs) 62.55 kg Weight (Calculated Kilograms) 62.6 Weight (Calculated Grams) 91973.4 [place] Body Weight 184 % [place] Body Weight 75 Body Mass Index (BMI) 18.1 Weight Status Underweight GI Symptoms GI Symptoms None Last BM no record Skin Integrity/Comment: pressure area to heels Current %PO Negligible < 25% Estimated Nutritional Goals Calories/Kcals/Kg 25-30 Kcals Calculated 0380-3373 based on IBW considering underweight and sepsis Protein g/k-1.2 Protein Calculated 84-100 Fluid: ml 2089-2508ml (1ml/kcal) Nutritional Problem 2. Problem Problem altered nutrition related lab values Etiology acute renal failure, hx of DM Signs/Symptoms: BUN 105, Cr 2.9, GLucose 295, POC 246-370, a1c 8.3, 1. Problem Problem increased nutrition needs ( calorie and protein) Etiology increased metabolic demand for healing and underweight Signs/Symptoms: dx of sepsis and PNA, BMI 18.2 Malnutrition Alert Protein-Calorie Malnutrition N/A Is there a minimum of two criteria No selected? Query Text:Check all the applicable criteria. A minimum of two criteria are recommended for diagnosis of either severe or non-severe malnutrition. Intervention/Recommendation Comments 1. Recommend modify diet to CCHO, low cholesteral diet for optimal glycemic control. RN made aware, will talk to MD 2. Monitor PO intake, wt, labs and skin integrity 3. F/U as high risk in 2-3 days, 11/18-11/19 Expected Outcomes/Goals Expected Outcomes/Goals 1. PO intake to meet at least 75% of nutritional needs. 2. Wt stability, skin to remain intact, labs to improve
[2017-11-30] MEDS ORDERED: Sodium Chloride 0.45% 1,000 ML IV SCH (20:26)
[2017-11-30] MEDS: Atorvastatin Calcium 10 MG TAB PO SCH (21:23)
[2017-11-30 22:42] LABS: HEMOGLOBIN 8.9 gm/dL (12-16); MEAN CELL VOLUME 89.3 fl (80-99); MEAN CORPUSCULAR HEMOGLOBIN 30.5 pg (27.0-31.0); MEAN CORPUSCULAR HGB CONC 34.1 pg (28.0-36.0); PLATELET COUNT 90 Th/cmm (150-400); RED BLOOD COUNT 2.91 Mil/cmm (3.80-5.80)
[2017-11-30 22:44] LABS: WHITE BLOOD COUNT 16.1 Th/cmm (4.8-10.8)
[2017-11-30 23:11] LABS: BAND NEUTROPHILE 3 % (0-10); LYMPHOCYTE 5 % (20-50); NEUTROPHILS 92 % (40-80); PLATELET ESTIMATE SLIGHT DECREASED (NORMAL); TOTAL CELLS COUNTED 100
[2017-12-01] MEDS: INSULIN ASPART SLIDING SCALE 100 UNITS/ML UNIT SUBQ SCH ×4 (00:58→17:37)
[2017-12-01] MEDS: Albuterol/Ipratropium Neb 3 ML AERS HHN SCH ×3 (01:50→13:26)
[2017-12-01 07:29] LABS: EOSINOPHILE ABSOLUTE 0.1 Th/cmm (0.1-0.4); HEMATOCRIT 25.7 % (41.0-60); HEMOGLOBIN 8.6 gm/dL (12-16); LYMPHOCYTE ABSOLUTE 0.7 Th/cmm (1.5-3.0); MEAN CELL VOLUME 89.3 fl (80-99); MEAN CORPUSCULAR HEMOGLOBIN 29.7 pg (27.0-31.0); MEAN CORPUSCULAR HGB CONC 33.2 pg (28.0-36.0); MEAN PLATELET VOLUME 11.2 fl; MONOCYTE ABSOLUTE 0.4 Th/cmm (0.3-1.0); PLATELET COUNT 98 Th/cmm (150-400); RED BLOOD COUNT 2.88 Mil/cmm (3.80-5.80); RED CELL DISTRIBUTION WIDTH 13.7 % (11.5-20.0)
[2017-12-01 07:34] LABS: WHITE BLOOD COUNT 16.2 Th/cmm (4.8-10.8)
[2017-12-01 07:48] LABS: ANION GAP 8.5 (7.0-16.0); CARBON DIOXIDE 27.1 mEq/L (21.0-31.0); CHLORIDE 112 mEq/L (98-107); CREATININE - SERUM 1.2 mg/dL (0.7-1.3); GLUCOSE 79 mg/dL (70-105); POTASSIUM SERUM 3.6 mEq/L (3.5-5.1); SODIUM SERUM 144 mEq/L (136-145)
[2017-12-01 07:53] LABS: BUN - UREA NITROGEN 83 mg/dL (7-25)
[2017-12-01] MEDS: Aspirin 81mg Chewable Tab PO SCH (09:37)
[2017-12-01] MEDS: Venelex 60gm Tube TP SCH (09:38)
[2017-12-01] MEDS: Pantoprazole 40 mg EC Tab PO SCH (09:38)
[2017-12-01] MEDS: Triple Antibiotic Ointment 28gm tube TP SCH (09:39)
[2017-12-01] MEDS: Levofloxacin 250mg/50mL 250 MG in Premix Fluid 1 BAG IV SCH (09:39)
[2017-12-01] MEDS: methylPREDNISolone SS 40 mg Vial IVP SCH (09:43)
[2017-12-01] MEDS: Insulin Detemir 100 units/mL 10mL Vial SUBQ SCH ×2 (09:44→17:38)
--- NOTE | 2017-12-01 09:55 | General Progress Note ---
Subjective - Review of Systems Service Date: 12/01/17 Subjective: Patient seen and examined. Objective - Results Result Diagrams: 12/01/17 06:30 12/01/17 06:30 Recent Labs: Laboratory Last Values WBC 16.2 Th/cmm (4.8-10.8) H 12/01/17 06:30 RBC 2.88 Mil/cmm (3.80-5.80) L 12/01/17 06:30 Hgb 8.6 gm/dL (12-16) L 12/01/17 06:30 Hct 25.7 % (41.0-60) L 12/01/17 06:30 MCV 89.3 fl (80-99) 12/01/17 06:30 MCH 29.7 pg (27.0-31.0) 12/01/17 06:30 MCHC Differential 33.2 pg (28.0-36.0) 12/01/17 06:30 RDW 13.7 % (11.5-20.0) 12/01/17 06:30 Plt Count 98 Th/cmm (150-400) L 12/01/17 06:30 MPV 11.2 fl 12/01/17 06:30 Neutrophils % 94.7 % (40.0-80.0) H 11/17/17 07:45 Band Neutrophils % 3 % (0-10) 11/30/17 22:31 Lymphocytes % 3.7 % (20.0-50.0) L 11/17/17 07:45 Monocytes % 1.6 % (2.0-10.0) L 11/17/17 07:45 Eosinophils % 0.0 % (0.0-5.0) 11/17/17 07:45 Basophils % 0.0 % (0.0-2.0) 11/15/17 09:01 Neutrophils (Manual) 92 % (40-80) H 11/30/17 22:31 Lymphocytes 5 % (20-50) L 11/30/17 22:31 Monocytes 1 % (2-10) L 11/30/17 05:10 Eosinophils 1 % (0-5) 11/30/17 05:10 Platelet Estimate SLIGHT DECREASED (NORMAL) 11/30/17 22:31 PT 12.3 SECONDS (9.5-11.5) H 11/25/17 06:50 INR 1.17 (0.5-1.4) 11/25/17 06:50 Specimen Source Arterial 11/18/17 10:29 Sample Site Right Radial 11/18/17 10:29 pH 7.48 (7.35-7.45) H 11/18/17 10:29 pCO2 29.0 mmHg (35.0-45.0) L 11/18/17 10:29 pO2 81.0 mmHg (80.0-100.0) 11/18/17 10:29 HCO3 24.1 mEq/L (20.0-26.0) 11/18/17 10:29 Base Excess -1.0 mEq/L (-3.0-3.0) 11/18/17 10:29 O2 Saturation 97.0 % (92.0-100.0) 11/18/17 10:29 Mario Test PASS 11/18/17 10:29 Vent Rate NA 11/15/17 08:47 Inspired O2 28 11/18/17 10:29 Tidal Volume NA 11/15/17 08:47 PEEP NA 11/15/17 08:47 Pressure (ins/psv/peep) NA 11/15/17 08:47 Critical Value PW 11/18/17 10:29 Sodium 144 mEq/L (136-145) 12/01/17 06:30 Potassium 3.6 mEq/L (3.5-5.1) 12/01/17 06:30 Chloride 112 mEq/L (98-107) H 12/01/17 06:30 Carbon Dioxide 27.1 mEq/L (21.0-31.0) 12/01/17 06:30 Anion Gap 8.5 (7.0-16.0) 12/01/17 06:30 BUN 83 mg/dL (7-25) H* 12/01/17 06:30 Creatinine 1.2 mg/dL (0.7-1.3) 12/01/17 06:30 Est GFR ( Amer) TNP 12/01/17 06:30 Est GFR (Non-Af Amer) TNP 12/01/17 06:30 BUN/Creatinine Ratio 69.2 12/01/17 06:30 Glucose 79 mg/dL (70-105) 12/01/17 06:30 POC Glucose 70 MG/DL (70 - 105) 12/01/17 07:46 Hemoglobin A1c % 8.3 % (4.0-6.0) H 11/15/17 09:20 Whole Bld Lactic Acid 6.37 mmol/L (0.60-1.99) H* 11/15/17 11:20 Calcium 8.0 mg/dL (8.6-10.3) L 12/01/17 06:30 Magnesium 2.3 mg/dL (1.9-2.7) 11/15/17 09:20 Total Bilirubin 0.3 mg/dL (0.3-1.0) 11/24/17 05:50 AST 18 U/L (13-39) 11/24/17 05:50 ALT 38 U/L (7-52) 11/24/17 05:50 Alkaline Phosphatase 63 U/L (34-104) 11/24/17 05:50 Troponin I 0.19 ng/mL (0.01-0.05) H* 11/15/17 09:01 B-Natriuretic Peptide 159.0 pg/mL (5.0-100.0) H 11/25/17 06:50 Total Protein 4.8 gm/dL (6.0-8.3) L 11/24/17 05:50 Albumin 2.2 gm/dL (4.2-5.5) L 11/24/17 05:50 Globulin 2.6 gm/dL 11/24/17 05:50 Albumin/Globulin Ratio 0.9 (1.0-1.8) L 11/24/17 05:50 Triglycerides 201 mg/dL (<150) H 11/15/17 09:20 Cholesterol 75 mg/dL (<200) 11/15/17 09:20 LDL Cholesterol Direct 8 mg/dL (75-193) L 11/15/17 09:20 HDL Cholesterol 9 mg/dL (23-92) L 11/15/17 09:20 TSH 0.75 uIU/ml (0.34-5.60) 11/15/17 09:20 Hepatitis A IgM Ab Negative (Negative) 11/17/17 17:40 Hep Bs Antigen Negative (Negative) 11/17/17 17:40 Hep B Core IgM Ab Negative (Negative) 11/17/17 17:40 Hepatitis C Antibody <0.1 s/co ratio (0.0-0.9) 11/17/17 17:40 Blood Type A POSITIVE 11/30/17 12:30 Antibody Screen NEGATIVE 11/30/17 12:30 Crossmatch See Detail 11/30/17 12:30 - Physical Exam Vitals and I&O: Vital Signs Temp 98.6 F 12/01/17 08:26 Pulse 91 12/01/17 09:38 Resp 19 12/01/17 08:26 BP 136/54 12/01/17 09:38 Pulse Ox 97 12/01/17 07:18 Intake & Output 11/30/17 12/01/17 12/01/17 18:59 06:59 18:59 Intake Total 1000 965.5 Output Total 1100 600 Balance -100 365.5 Weight (lbs) 77.201 kg 78.381 kg Intake: Intake, IV Amount 715.5 Levofloxacin 250mg/50mL 50 250 mg In Premix Fluid 1 bag @ 50 mls/hr IV Q24H [facility] Rx#:[id number] Linezolid 600mg/300mL 600 300 mg In 300 ml @ 200 mls/ hr IV Q12HR@0900,2100 [facility] Rx#:[id number] Sodium Chloride 0.45% 1, 65.5 000 ml @ 30 mls/hr IV . Q24H [facility] Rx#:[id number] Oral 600 Blood Product 250 Other 400 Output: Urine 1100 600 Other: # Bowel Movements 1 0 Active Medications: Current Medications Acetaminophen (Tylenol 650mg Supp) 650 mg RC Q4H PRN PRN Reason: Fever > 101 Stop: 01/14/18 12:49 Albuterol/Ipratropium (Duoneb Neb) 3 ml HHN Q6HRT [facility] Stop: 01/27/18 18:59 Last Admin: 12/01/17 07:18 Dose: 3 ml Amlodipine Besylate (Norvasc) 5 mg PO HS [facility] Stop: 01/14/18 20:59 Last Admin: 11/30/17 21:22 Dose: 5 mg Aspirin (Aspirin Chewable) 81 mg PO DAILY [facility] Stop: 01/15/18 08:59 Last Admin: 12/01/17 09:37 Dose: 81 mg Atorvastatin Calcium (Lipitor) 20 mg PO HS [facility] Stop: 01/14/18 22:59 Last Admin: 11/30/17 21:23 Dose: 20 mg Carvedilol (Coreg) 3.125 mg PO BID [facility] Stop: 01/14/18 16:59 Last Admin: 12/01/17 09:38 Dose: 3.125 mg [place] Oil/[place] Balsam/Trypsin (Venelex) 1 appl TP DAILY [facility] Stop: 01/25/18 15:44 Last Admin: 12/01/17 09:38 Dose: 1 appl Diltiazem HCl (Cardizem) 20 mg IVP Q4HR PRN PRN Reason: HR above 110 Stop: 01/23/18 08:24 Fluconazole (Diflucan) 100 mg PO DAILY [facility] Stop: 01/17/18 08:59 Last Admin: 12/01/17 09:38 Dose: 100 mg Glucagon (Glucagen) 1 mg IM PRN PRN PRN Reason: hypoglycemia Stop: 01/14/18 16:44 Last Admin: 12/01/17 06:56 Dose: 1 mg Diltiazem HCl 125 mg/ Dextrose 125 mls @ 10 mls/hr IV TITR [facility]; 10 MG/HR PRN Reason: Protocol Stop: 01/14/18 11:44 Last Titration: 11/16/17 03:00 Dose: 0 mg/hr, 0 mls/hr Levofloxacin 250 mg/ (Miscellaneous) 50 mls @ 50 mls/hr IV Q24H [facility] Stop: 01/15/18 09:59 Last Admin: 12/01/17 09:39 Dose: 50 mls/hr Sodium Chloride (Nacl 0.45%) 1,000 mls @ 30 mls/hr IV .Q24H [facility] Stop: 01/19/18 22:18 Last Infusion: 12/01/17 06:21 Dose: 30 mls/hr Insulin Aspart (Novolog Insulin Sliding Scale) 0 units SUBQ Q6HR [facility] PRN Reason: Protocol Stop: 01/28/18 05:59 Last Admin: 12/01/17 06:58 Dose: Not Given Insulin Detemir (Levemir Insulin) 14 units SUBQ BID [facility] PRN Reason: Protocol Stop: 01/20/18 16:59 Last Admin: 12/01/17 09:44 Dose: Not Given Mirtazapine (Remeron) 30 mg PO HS [facility] Stop: 01/14/18 22:59 Last Admin: 11/30/17 21:23 Dose: 30 mg Miscellaneous (Probiotic Screen) 1 ea MC PRN PRN PRN Reason: PROTOCOL Stop: 01/19/18 16:29 Neomycin/Polymyxin/Bacitracin (Triple Antibiotic Ointment) 1 appl TP DAILY [facility] Stop: 01/15/18 08:59 Last Admin: 12/01/17 09:39 Dose: 1 appl Olanzapine (Zyprexa) 10 mg PO TID [facility] PRN Reason: Protocol Stop: 01/14/18 20:59 Last Admin: 12/01/17 09:38 Dose: 10 mg Pantoprazole Sodium (Protonix) 40 mg PO DAILY [facility] Stop: 01/15/18 08:59 Last Admin: 12/01/17 09:38 Dose: 40 mg Rivaroxaban (Xarelto) 5 mg PO DAILY [facility] Stop: 01/21/18 15:59 Last Admin: 12/01/17 09:37 Dose: 5 mg General: Alert, Other (confused) HEENT: Atraumatic, PERRLA Neck: Supple Cardiovascular: Regular rate, Other (multiple PVC) Lungs: Other (rhonchi) Abdomen: Bowel sounds, Soft (+Gtube), Obese, Other (G tube site c/d/i) Extremities: Edema Psych/Mental Status: Other (lethargic) - Procedures Procedures: Procedures Procedure Code Date INSERT TUNNELED CV CATH [id number] 11/15/17 INSERTION OF INFUSION DEV INTO R SUBCLAV VEIN, PERC APPROACH [id number] 11/15/17 Assessment/Plan - Problem List Patient Problems: All Active Problems SEVERE RESPIRATORY DISTRESS (Acute) - Assessment Assessment: 1.PNEUMONIA. 2.COPD. 3.A FIB. 4.DEMENTIA. 5.PENNY. secondary to ATN. Patient was on Hemodialysis until last week but now stopped and Matthew removed. Serum Creat improved. Adequate urine out put. 6.Elevated BUN Likely due to high dose steroids. Steroid is on huber down. 7. Diastolic CHF - Plan Plan: serum creat 1.2 elevated BUN. stop steroids Nutritional Asmnt/Malnutr-PDOC - Dietary Evaluation Malnutrition Findings (Please click <Entered> for more info): Nutritional Asmnt/Malnutrition Start: 11/16/17 14: 06 Text: Status: Complete Freq: Document 11/16/17 14:06 LISA (Rec: 11/16/17 14:20 [email or web address]) Nutritional Asmnt/Malnutrition Patient General Information Nutritional Screening High Risk Consult Diagnosis actute renal failure, sepsis, PNA Pertinent Medical Hx/Surgical Hx hyperlipidemia, CHF, HTN, COPD , ICD device Subjective Information Consult received for admit blood sugar 263. Pt seen sleeping in bed at the time of visit. Spoke with RN, pt refused breakfast this morning possible d/t weakness and being sick. Current Diet Order/ Nutrition Support low chlesterol 300gm Pertinent Medications glucagen, novolog, remeron, nacl 0.9% Pertinent Labs 11/15 Na 137, K 4.6, Cl 110, BUN 105, Cr 2.9, GLucose 295, POC 246-370 since admit, a1c 8.3, calcium 9.2 Nutritional Hx/Data Height 1.85 m Height (Calculated Centimeters) 185.4 Current Weight (lbs) 62.55 kg Weight (Calculated Kilograms) 62.6 Weight (Calculated Grams) 87995.4 [place] Body Weight 184 % [place] Body Weight 75 Body Mass Index (BMI) 18.1 Weight Status Underweight GI Symptoms GI Symptoms None Last BM no record Skin Integrity/Comment: pressure area to heels Current %PO Negligible < 25% Estimated Nutritional Goals Calories/Kcals/Kg 25-30 Kcals Calculated 3058-6471 based on IBW considering underweight and sepsis Protein g/k-1.2 Protein Calculated 84-100 Fluid: ml 2089-2508ml (1ml/kcal) Nutritional Problem 2. Problem Problem altered nutrition related lab values Etiology acute renal failure, hx of DM Signs/Symptoms: BUN 105, Cr 2.9, GLucose 295, POC 246-370, a1c 8.3, 1. Problem Problem increased nutrition needs ( calorie and protein) Etiology increased metabolic demand for healing and underweight Signs/Symptoms: dx of sepsis and PNA, BMI 18.2 Malnutrition Alert Protein-Calorie Malnutrition N/A Is there a minimum of two criteria No selected? Query Text:Check all the applicable criteria. A minimum of two criteria are recommended for diagnosis of either severe or non-severe malnutrition. Intervention/Recommendation Comments 1. Recommend modify diet to CCHO, low cholesteral diet for optimal glycemic control. RN made aware, will talk to MD 2. Monitor PO intake, wt, labs and skin integrity 3. F/U as high risk in 2-3 days, 11/18-11/19 Expected Outcomes/Goals Expected Outcomes/Goals 1. PO intake to meet at least 75% of nutritional needs. 2. Wt stability, skin to remain intact, labs to improve
--- NOTE | 2017-12-01 16:43 | Infectious Disease Prog Note ---
Infectious Disease Subjective - Review of Systems Subjective: cc uti pn hpi- pt on iv abx rd/w staff to stop all abx on discharge to [facility] no fevr o/e vss chets claera bd soft ext pilse Infectious Disease Objective - Results Result Diagrams: 12/01/17 06:30 12/01/17 06:30 Recent Labs: Laboratory Last Values WBC 16.2 Th/cmm (4.8-10.8) H 12/01/17 06:30 RBC 2.88 Mil/cmm (3.80-5.80) L 12/01/17 06:30 Hgb 8.6 gm/dL (12-16) L 12/01/17 06:30 Hct 25.7 % (41.0-60) L 12/01/17 06:30 MCV 89.3 fl (80-99) 12/01/17 06:30 MCH 29.7 pg (27.0-31.0) 12/01/17 06:30 MCHC Differential 33.2 pg (28.0-36.0) 12/01/17 06:30 RDW 13.7 % (11.5-20.0) 12/01/17 06:30 Plt Count 98 Th/cmm (150-400) L 12/01/17 06:30 MPV 11.2 fl 12/01/17 06:30 Neutrophils % 94.7 % (40.0-80.0) H 11/17/17 07:45 Band Neutrophils % 3 % (0-10) 11/30/17 22:31 Lymphocytes % 3.7 % (20.0-50.0) L 11/17/17 07:45 Monocytes % 1.6 % (2.0-10.0) L 11/17/17 07:45 Eosinophils % 0.0 % (0.0-5.0) 11/17/17 07:45 Basophils % 0.0 % (0.0-2.0) 11/15/17 09:01 Neutrophils (Manual) 92 % (40-80) H 11/30/17 22:31 Lymphocytes 5 % (20-50) L 11/30/17 22:31 Monocytes 1 % (2-10) L 11/30/17 05:10 Eosinophils 1 % (0-5) 11/30/17 05:10 Platelet Estimate SLIGHT DECREASED (NORMAL) 11/30/17 22:31 PT 12.3 SECONDS (9.5-11.5) H 11/25/17 06:50 INR 1.17 (0.5-1.4) 11/25/17 06:50 Specimen Source Arterial 11/18/17 10:29 Sample Site Right Radial 11/18/17 10:29 pH 7.48 (7.35-7.45) H 11/18/17 10:29 pCO2 29.0 mmHg (35.0-45.0) L 11/18/17 10:29 pO2 81.0 mmHg (80.0-100.0) 11/18/17 10:29 HCO3 24.1 mEq/L (20.0-26.0) 11/18/17 10:29 Base Excess -1.0 mEq/L (-3.0-3.0) 11/18/17 10:29 O2 Saturation 97.0 % (92.0-100.0) 11/18/17 10:29 Mario Test PASS 11/18/17 10:29 Vent Rate NA 11/15/17 08:47 Inspired O2 28 11/18/17 10:29 Tidal Volume NA 11/15/17 08:47 PEEP NA 11/15/17 08:47 Pressure (ins/psv/peep) NA 11/15/17 08:47 Critical Value PW 11/18/17 10:29 Sodium 144 mEq/L (136-145) 12/01/17 06:30 Potassium 3.6 mEq/L (3.5-5.1) 12/01/17 06:30 Chloride 112 mEq/L (98-107) H 12/01/17 06:30 Carbon Dioxide 27.1 mEq/L (21.0-31.0) 12/01/17 06:30 Anion Gap 8.5 (7.0-16.0) 12/01/17 06:30 BUN 83 mg/dL (7-25) H* 12/01/17 06:30 Creatinine 1.2 mg/dL (0.7-1.3) 12/01/17 06:30 Est GFR ( Amer) TNP 12/01/17 06:30 Est GFR (Non-Af Amer) TNP 12/01/17 06:30 BUN/Creatinine Ratio 69.2 12/01/17 06:30 Glucose 79 mg/dL (70-105) 12/01/17 06:30 POC Glucose 257 MG/DL (70 - 105) H 12/01/17 16:19 Hemoglobin A1c % 8.3 % (4.0-6.0) H 11/15/17 09:20 Whole Bld Lactic Acid 6.37 mmol/L (0.60-1.99) H* 11/15/17 11:20 Calcium 8.0 mg/dL (8.6-10.3) L 12/01/17 06:30 Magnesium 2.3 mg/dL (1.9-2.7) 11/15/17 09:20 Total Bilirubin 0.3 mg/dL (0.3-1.0) 11/24/17 05:50 AST 18 U/L (13-39) 11/24/17 05:50 ALT 38 U/L (7-52) 11/24/17 05:50 Alkaline Phosphatase 63 U/L (34-104) 11/24/17 05:50 Troponin I 0.19 ng/mL (0.01-0.05) H* 11/15/17 09:01 B-Natriuretic Peptide 159.0 pg/mL (5.0-100.0) H 11/25/17 06:50 Total Protein 4.8 gm/dL (6.0-8.3) L 11/24/17 05:50 Albumin 2.2 gm/dL (4.2-5.5) L 11/24/17 05:50 Globulin 2.6 gm/dL 11/24/17 05:50 Albumin/Globulin Ratio 0.9 (1.0-1.8) L 11/24/17 05:50 Triglycerides 201 mg/dL (<150) H 11/15/17 09:20 Cholesterol 75 mg/dL (<200) 11/15/17 09:20 LDL Cholesterol Direct 8 mg/dL (75-193) L 11/15/17 09:20 HDL Cholesterol 9 mg/dL (23-92) L 11/15/17 09:20 TSH 0.75 uIU/ml (0.34-5.60) 11/15/17 09:20 Hepatitis A IgM Ab Negative (Negative) 11/17/17 17:40 Hep Bs Antigen Negative (Negative) 11/17/17 17:40 Hep B Core IgM Ab Negative (Negative) 11/17/17 17:40 Hepatitis C Antibody <0.1 s/co ratio (0.0-0.9) 11/17/17 17:40 Blood Type A POSITIVE 11/30/17 12:30 Antibody Screen NEGATIVE 11/30/17 12:30 Crossmatch See Detail 11/30/17 12:30 - Physical Exam Vitals and I&O: Vital Signs Temp 97.4 F 12/01/17 16:35 Pulse 77 12/01/17 16:35 Resp 18 12/01/17 16:35 BP 137/54 12/01/17 16:35 Pulse Ox 98 12/01/17 16:35 Intake & Output 11/30/17 12/01/17 12/01/17 18:59 06:59 18:59 Intake Total 1000 965.5 Output Total 1100 600 Balance -100 365.5 Weight (lbs) 77.201 kg 78.381 kg Intake: Intake, IV Amount 715.5 Levofloxacin 250mg/50mL 50 250 mg In Premix Fluid 1 bag @ 50 mls/hr IV Q24H [facility] Rx#:[id number] Linezolid 600mg/300mL 600 300 mg In 300 ml @ 200 mls/ hr IV Q12HR@0900,2100 [facility] Rx#:[id number] Sodium Chloride 0.45% 1, 65.5 000 ml @ 30 mls/hr IV . Q24H [facility] Rx#:[id number] Oral 600 Blood Product 250 Other 400 Output: Urine 1100 600 Other: # Bowel Movements 1 0 Active Medications: Current Medications Acetaminophen (Tylenol 650mg Supp) 650 mg RC Q4H PRN PRN Reason: Fever > 101 Stop: 01/14/18 12:49 Albuterol/Ipratropium (Duoneb Neb) 3 ml HHN Q6HRT RYAN Stop: 01/27/18 18:59 Last Admin: 12/01/17 13:26 Dose: 3 ml Amlodipine Besylate (Norvasc) 5 mg PO HS [facility] Stop: 01/14/18 20:59 Last Admin: 11/30/17 21:22 Dose: 5 mg Aspirin (Aspirin Chewable) 81 mg PO DAILY [facility] Stop: 01/15/18 08:59 Last Admin: 12/01/17 09:37 Dose: 81 mg Atorvastatin Calcium (Lipitor) 20 mg PO HS [facility] Stop: 01/14/18 22:59 Last Admin: 11/30/17 21:23 Dose: 20 mg Carvedilol (Coreg) 3.125 mg PO BID [facility] Stop: 01/14/18 16:59 Last Admin: 12/01/17 09:38 Dose: 3.125 mg [place] Oil/[place] Balsam/Trypsin (Venelex) 1 appl TP DAILY [facility] Stop: 01/25/18 15:44 Last Admin: 12/01/17 09:38 Dose: 1 appl Diltiazem HCl (Cardizem) 20 mg IVP Q4HR PRN PRN Reason: HR above 110 Stop: 01/23/18 08:24 Fluconazole (Diflucan) 100 mg PO DAILY [facility] Stop: 01/17/18 08:59 Last Admin: 12/01/17 09:38 Dose: 100 mg Glucagon (Glucagen) 1 mg IM PRN PRN PRN Reason: hypoglycemia Stop: 01/14/18 16:44 Last Admin: 12/01/17 06:56 Dose: 1 mg Diltiazem HCl 125 mg/ Dextrose 125 mls @ 10 mls/hr IV TITR [facility]AN; 10 MG/HR PRN Reason: Protocol Stop: 01/14/18 11:44 Last Titration: 11/16/17 03:00 Dose: 0 mg/hr, 0 mls/hr Levofloxacin 250 mg/ (Miscellaneous) 50 mls @ 50 mls/hr IV Q24H [facility] Stop: 01/15/18 09:59 Last Admin: 12/01/17 09:39 Dose: 50 mls/hr Sodium Chloride (Nacl 0.45%) 1,000 mls @ 30 mls/hr IV .Q24H [facility] Stop: 01/19/18 22:18 Last Infusion: 12/01/17 06:21 Dose: 30 mls/hr Insulin Aspart (Novolog Insulin Sliding Scale) 0 units SUBQ Q6HR [facility] PRN Reason: Protocol Stop: 01/28/18 05:59 Last Admin: 12/01/17 13:14 Dose: 3 units Insulin Detemir (Levemir Insulin) 14 units SUBQ BID [facility] PRN Reason: Protocol Stop: 01/20/18 16:59 Last Admin: 12/01/17 09:44 Dose: Not Given Mirtazapine (Remeron) 30 mg PO HS [facility] Stop: 01/14/18 22:59 Last Admin: 11/30/17 21:23 Dose: 30 mg Miscellaneous (Probiotic Screen) 1 ea MC PRN PRN PRN Reason: PROTOCOL Stop: 01/19/18 16:29 Neomycin/Polymyxin/Bacitracin (Triple Antibiotic Ointment) 1 appl TP DAILY [facility] Stop: 01/15/18 08:59 Last Admin: 12/01/17 09:39 Dose: 1 appl Olanzapine (Zyprexa) 10 mg PO TID [facility] PRN Reason: Protocol Stop: 01/14/18 20:59 Last Admin: 12/01/17 13:13 Dose: 10 mg Pantoprazole Sodium (Protonix) 40 mg PO DAILY [facility] Stop: 01/15/18 08:59 Last Admin: 12/01/17 09:38 Dose: 40 mg Rivaroxaban (Xarelto) 5 mg PO DAILY [facility] Stop: 01/21/18 15:59 Last Admin: 12/01/17 09:37 Dose: 5 mg - Procedures Procedures: Procedures Procedure Code Date INSERT TUNNELED CV CATH 99323 11/15/17 INSERTION OF INFUSION DEV INTO R SUBCLAV VEIN, PERC APPROACH [id number] 11/15/17 Infectious Disease Assmt/Plan - Problem List Patient Problems: All Active Problems SEVERE RESPIRATORY DISTRESS (Acute) Nutritional Asmnt/Malnutr-PDOC - Dietary Evaluation Malnutrition Findings (Please click <Entered> for more info): Nutritional Asmnt/Malnutrition Start: 11/16/17 14: 06 Text: Status: Complete Freq: Document 11/16/17 14:06 COSMO (Rec: 11/16/17 14:20 [email or web address]) Nutritional Asmnt/Malnutrition Patient General Information Nutritional Screening High Risk Consult Diagnosis actute renal failure, sepsis, PNA Pertinent Medical Hx/Surgical Hx hyperlipidemia, CHF, HTN, COPD , ICD device Subjective Information Consult received for admit blood sugar 263. Pt seen sleeping in bed at the time of visit. Spoke with RN, pt refused breakfast this morning possible d/t weakness and being sick. Current Diet Order/ Nutrition Support low chlesterol 300gm Pertinent Medications glucagen, novolog, remeron, nacl 0.9% Pertinent Labs 11/15 Na 137, K 4.6, Cl 110, BUN 105, Cr 2.9, GLucose 295, POC 246-370 since admit, a1c 8.3, calcium 9.2 Nutritional Hx/Data Height 1.85 m Height (Calculated Centimeters) 185.4 Current Weight (lbs) 62.55 kg Weight (Calculated Kilograms) 62.6 Weight (Calculated Grams) 81479.4 Ferguson Body Weight 184 % Ferguson Body Weight 75 Body Mass Index (BMI) 18.1 Weight Status Underweight GI Symptoms GI Symptoms None Last BM no record Skin Integrity/Comment: pressure area to heels Current %PO Negligible < 25% Estimated Nutritional Goals Calories/Kcals/Kg 25-30 Kcals Calculated 0430-3606 based on IBW considering underweight and sepsis Protein g/k-1.2 Protein Calculated 84-100 Fluid: ml 2089-250ml (1ml/kcal) Nutritional Problem 2. Problem Problem altered nutrition related lab values Etiology acute renal failure, hx of DM Signs/Symptoms: BUN 105, Cr 2.9, GLucose 295, POC 246-370, a1c 8.3, 1. Problem Problem increased nutrition needs ( calorie and protein) Etiology increased metabolic demand for healing and underweight Signs/Symptoms: dx of sepsis and PNA, BMI 18.2 Malnutrition Alert Protein-Calorie Malnutrition N/A Is there a minimum of two criteria No selected? Query Text:Check all the applicable criteria. A minimum of two criteria are recommended for diagnosis of either severe or non-severe malnutrition. Intervention/Recommendation Comments 1. Recommend modify diet to CCHO, low cholesteral diet for optimal glycemic control. RN made aware, will talk to MD 2. Monitor PO intake, wt, labs and skin integrity 3. F/U as high risk in 2-3 days, 11/18-11/19 Expected Outcomes/Goals Expected Outcomes/Goals 1. PO intake to meet at least 75% of nutritional needs. 2. Wt stability, skin to remain intact, labs to improve
--- NOTE | 2017-12-30 19:53 | Discharge Summary ---
DATE OF DISCHARGE: 12/01/2017 FINAL DIAGNOSES: 1. Pneumonia. 2. Acute respiratory failure. 3. Chronic obstructive pulmonary disease. 4. Hypertension. 5. Chronic systolic congestive heart failure. 6. Diabetes mellitus. 7. Acute on chronic renal failure. 8. Dehydration. 9. Dementia. 10. Anemia. HISTORY OF PRESENT ILLNESS: The patient is a 77-year-old male with a long history of diabetes mellitus, hypertension, dementia, presented to the Emergency Room with acute respiratory failure. Initial workups for pneumonia, admitted to ICU, started on IV fluid, antibiotic, started on BiPAP. Pulmonary consultation obtained. Infectious Disease consultation obtained. Nephrology consultation obtained. PHYSICAL EXAMINATION: VITAL SIGNS: Temperature 97.5, heart rate 105, blood pressure 141/61. CHEST: Diminished breathing sound. HEART: S1, S2 normal. ABDOMEN: Soft, bowel sounds positive. EXTREMITIES: No edema. LABORATORY DATA: White blood cells 2.9, hemoglobin 13.6, hematocrit 41.5, platelet 201. Sodium 137, potassium 4.9, BUN is 109, creatinine 3.3. COURSE OF HOSPITALIZATION: During hospitalization, the patient was seen by asbestos wire finisher, infectious disease specialist, icing mixer. On 11/19/2017, the patient is still lethargic, not responding. Chest diminished breathing sound. Heart, S1, S2 normal. Abdomen soft. Bowel sounds positive. The patient continued on his medication and diet on 11/22/2017. The patient is still not responding well and his kidney function is not improving. The patient started on dialysis. On 11/27/2017, the patient was afebrile. Chest clear to auscultation. Abdomen soft. Bowel sounds positive. DISPOSITION: On 12/01/2017, the patient was discharged back to [facility] to continue his medication and diet. CONDITION ON DISCHARGE: Stable. MEDICATIONS: Follow discharge reconciliation. JOB# [id number]
== END 2017-12-01 18:55 | disposition home or self-care (01) | DRG 871 ==
LOC: ER 08:35 → ICU 16:18 → TELE 11-17 21:45 → MSI 11-25 12:47
PROVIDERS: ADMIT Family Medicine; ATTEND Family Medicine
PROC: 05H533Z Insertion of Infusion Device into Right Subclavian Vein, Percutaneous Approach (ICD-10-PCS; principal; 2017-11-17)
PROC: B546ZZA Ultrasonography of Right Subclavian Vein, Guidance (ICD-10-PCS; 2017-11-17)
PROC: 5A1D70Z Performance of Urinary Filtration, Intermittent, Less than 6 Hours Per Day (ICD-10-PCS; 2017-11-17)
PROC: 5A1D70Z Performance of Urinary Filtration, Intermittent, Less than 6 Hours Per Day (ICD-10-PCS; 2017-11-19)
PROC: 5A1D70Z Performance of Urinary Filtration, Intermittent, Less than 6 Hours Per Day (ICD-10-PCS; 2017-11-22)
PROC: 05PY33Z Removal of Infusion Device from Upper Vein, Percutaneous Approach (ICD-10-PCS; 2017-11-23)
PROC: 0DB68ZX Excision of Stomach, Via Natural or Artificial Opening Endoscopic, Diagnostic (ICD-10-PCS; 2017-11-26)
PROC: 0DH68UZ Insertion of Feeding Device into Stomach, Via Natural or Artificial Opening Endoscopic (ICD-10-PCS; 2017-11-26)
PROC: 30233N1 Transfusion of Nonautologous Red Blood Cells into Peripheral Vein, Percutaneous Approach (ICD-10-PCS; 2017-11-30)
DX: A41.9 Sepsis, unspecified organism (principal); N17.0 Acute kidney failure with tubular necrosis; J69.0 Pneumonitis due to inhalation of food and vomit; J96.01 Acute respiratory failure with hypoxia; R65.21 Severe sepsis with septic shock; I13.2 Hypertensive heart and chronic kidney disease with heart failure and with stage 5 chronic kidney disease, or end stage renal disease; N18.6 End stage renal disease; I42.9 Cardiomyopathy, unspecified; E46 Unspecified protein-calorie malnutrition; E11.22 Type 2 diabetes mellitus with diabetic chronic kidney disease; I48.0 Paroxysmal atrial fibrillation; I50.42 Chronic combined systolic (congestive) and diastolic (congestive) heart failure; N39.0 Urinary tract infection, site not specified; F20.0 Paranoid schizophrenia; J44.1 Chronic obstructive pulmonary disease with (acute) exacerbation; I95.1 Orthostatic hypotension; E86.0 Dehydration; E11.65 Type 2 diabetes mellitus with hyperglycemia; F03.90 Unspecified dementia, unspecified severity, without behavioral disturbance, psychotic disturbance, mood disturbance, and anxiety; I25.10 Atherosclerotic heart disease of native coronary artery without angina pectoris; N40.0 Benign prostatic hyperplasia without lower urinary tract symptoms; E03.8 Other specified hypothyroidism; K29.80 Duodenitis without bleeding; K64.8 Other hemorrhoids; K57.90 Diverticulosis of intestine, part unspecified, without perforation or abscess without bleeding; R13.10 Dysphagia, unspecified; Z79.4 Long term (current) use of insulin; I25.2 Old myocardial infarction; Z79.82 Long term (current) use of aspirin; Z68.22 Body mass index [BMI] 22.0-22.9, adult; Z95.810 Presence of automatic (implantable) cardiac defibrillator
CPT/HCPCS: 36415-UA; 36600-90; 71045-TC; 80048-TC; 80053-TC; 80061-TC; 80074-90; 82803-TC; 82947-TC; 82948-90; 83036-90; 83605; 83735-TC; 83880-TC; 84443-TC; 84484-TC; 85007-TC; 85025-TC; 85027-TC; 85610-TC; 86850-TC; 86900-TC; 86901-TC; 86922-TC; 87070; 87086-90; 88305-90; 88312-90; 90779; 90784; 90937; 93005; 93970-TC-50; 94640; 94760; 96375; 96379; J0456; J0692; J1160; J1610; J1644; J1815; J1940; J1956; J2001; J2020; J2543; J2704; J2920; J2930; J3370; J7030; J7070; J7121; J7613; P9016; X3401; Z7506; Z7610

== ENCOUNTER 2017-12-10 13:56 | Inpatient (IN) | payer MEDICAID, MEDICARE ==
--- NOTE | 2017-12-10 14:00 | ED Physician Chart ---
ED Chief Complaint/HPI - Patient Information Date Seen:: 12/10/17 Time Seen:: 13:59 Chief Complaint:: SOB, altered mental status History of Present Illness:: 77 yo male was brought from [facility] to ER for evaluation of sudden onset of SOB and altered mental status. The patient had history of CVA and was bed bound. Allergies:: Allergies Allergy/AdvReac Type Severity Reaction Status Date / Time lisinopril Allergy Verified 11/15/17 09:03 ED Review of Systems - Review of Systems General/Constitutional: No fever, Weakness Skin: No bruising Head: No headache Eyes: No pain ENT: No earache Neck: No neck pain Cardio Vascular: No chest pain Pulmonary: SOB, Cough GI: No nausea, No vomiting Musculoskeletal: No bone or joint pain Neurological: Weakness, Confusion ED Past Medical History - Past Medical History Past Medical History: HTN, CAD, CVA/TIA, Dyslipidemia (hyperlipidemia), PUD/GERD , Thyroid disorder (hypothyroidism), Dementia, Other (pacemaker, acute renal failure, CKD III, s/p G-tube placement, Afib, anemia, metabolic encephalopathy) Social History: Non Smoker, No Alcohol, No Drug Use Psychiatricy History: Depression, Schizophrenia (paranoid type) Family Medical History - Family Member Mother History Unknown: Yes ED Physical Exam - Physical Examination Other Gen/Cons comments:: Awaken to voice Head: Atraumatic Eyes: PERRL Skin: No ecchymosis ENMT: Nasal exam nl Neck: No nuchal rigidity Other Respiratory comments:: Diminished lung sound Cardio Vascular: RRR, No murmur, gallop, rubs, NL S1 S2 GI: No tenderness/rebounding/guarding Other Extremities comments:: 2+ edema BLE Other Neuro/Psych comments:: Confused, oriented to self ED Labs/Radiology/EKG Results - Radiology Results Results: CXR: left basal density ED Assessment - Assessment General Assessment: LLL pneumonia Pancytopenia Sepsis Metabolic alkalosis Hypernatremia Acute renal failure Elevated troponin Assessment/Comments:: CBC, CMP, Troponin ABG UA Blood culture DuoNeb NS 1L IV bolus Admit to ICU ED Septic Shock - . Is Septic Shock (SBP<90, OR Lactate>4 mmol\L) present?: No ED Reassessment (Disposition) - Reassessment Reassessment Condition:: Improved - Patient Disposition Discharge/Transfer:: Acute Care w/in this hosp Admitting Medical Physician:: Harley Frost ED Discharge Plan - Patient Disposition Admit/Discharge/Transfer: Acute Care w/in this hosp Condition at Disposition: Stable
[2017-12-10] MEDS ORDERED: Albuterol/Ipratropium Neb 3 ML AERS HHN ONE ×2 (14:01→14:18)
[2017-12-10 14:14] LABS: ALLEN TEST YES; pH 7.51 (7.35-7.45)
--- NOTE | 2017-12-10 14:20 | Diagnostic Imaging Report ---
CHEST X-RAY: AP view INDICATION: Shortness of breath COMPARISON: 11/27/2017 FINDINGS: Left chest wall AICD is noted with leads in the region of the right atrium and right ventricle. There is no focal consolidation or pleural effusions. Slight increased left basal densities noted. Mild cardiomegaly is noted with atherosclerosis . Degenerate changes of the spine are noted. IMPRESSION: Left basal density. Although findings may be chronic, atelectasis versus less likely focal infiltrate cannot be completely excluded. Please correlate clinically. Mild cardiomegaly with atherosclerosis AICD again noted.
[2017-12-10] MEDS ORDERED: Sodium Chloride 0.9% 1,000 ML IV ONE (14:26)
[2017-12-10 14:40] LABS: ALB/GLOB RATIO 0.9 (1.0-1.8); ALBUMIN 2.2 gm/dL (4.2-5.5); ALKALINE PHOSPHATASE 111 U/L (34-104); ANION GAP 10.7 (7.0-16.0); BILIRUBIN,TOTAL 0.3 mg/dL (0.3-1.0); CALCIUM SERUM 8.1 mg/dL (8.6-10.3); CARBON DIOXIDE 26.4 mEq/L (21.0-31.0); CHLORIDE 131 mEq/L (98-107); CREATININE - SERUM 1.3 mg/dL (0.7-1.3); GLUCOSE 234 mg/dL (70-105); POTASSIUM SERUM 4.1 mEq/L (3.5-5.1); SGOT 51 U/L (13-39); SGPT/ALT 73 U/L (7-52); TOTAL PROTEIN,SERUM 4.8 gm/dL (6.0-8.3)
[2017-12-10 14:54] LABS: HEMOGLOBIN 5.1 gm/dL (12-16); RED BLOOD COUNT 1.68 Mil/cmm (3.80-5.80)
[2017-12-10 14:55] LABS: % EOSINOPHILS 2.7 % (0.0-5.0); % LYMPHOCYTES 33.7 % (20.0-50.0); % MONOCYTES 5.7 % (2.0-10.0); % NEUTROPHILS 57.5 % (40.0-80.0); MEAN CELL VOLUME 92.4 fl (80-99); MEAN CORPUSCULAR HEMOGLOBIN 30.4 pg (27.0-31.0); MEAN CORPUSCULAR HGB CONC 32.9 pg (28.0-36.0); MEAN PLATELET VOLUME 10.4 fl; PLATELET COUNT 117 Th/cmm (150-400); RED CELL DISTRIBUTION WIDTH 15.5 % (11.5-20.0)
[2017-12-10 14:56] LABS: % BASOPHILS 0.4 % (0.0-2.0); EOSINOPHILE ABSOLUTE 0.1 Th/cmm (0.1-0.4); LYMPHOCYTE ABSOLUTE 1.3 Th/cmm (1.5-3.0); MONOCYTE ABSOLUTE 0.2 Th/cmm (0.3-1.0); NEUTROPHILE ABSOLUTE 2.4 Th/cmm (1.8-8.0)
[2017-12-10 14:57] LABS: HEMATOCRIT 15.5 % (41.0-60)
[2017-12-10 15:05] LABS: BUN - UREA NITROGEN 82 mg/dL (7-25)
[2017-12-10 16:11] LABS: SODIUM SERUM 164 mEq/L (136-145)
[2017-12-10] MEDS ORDERED: Piperacillin Sodium/Tazobact 3.375 gm Vial IV ONE (18:27)
[2017-12-10] MEDS ORDERED: Albuterol Nebulizer 2.5mg/3mL HHN ONE (19:38)
[2017-12-10] MEDS: D5-0.45NS w/20 mEq KCL 1,000 ML IV SCH (19:45)
[2017-12-10] MEDS: Ipratropium Neb 0.5 mg/2.5 mL UD HHN SCH (22:32)
[2017-12-10] MEDS ORDERED: Diltiazem 5 mg/mL 5mL Vial IVP PRN (23:10)
[2017-12-10] MEDS ORDERED: GLUCAGON HCl 1 MG KIT IM PRN (23:15)
[2017-12-11] MEDS: INSULIN ASPART SLIDING SCALE 100 UNITS/ML UNIT SUBQ SCH ×4 (00:17→17:40)
[2017-12-11] MEDS ORDERED: Piperacillin Sodium/Tazobact 3.375 gm Vial IV ONE ×2 (00:20→04:18)
[2017-12-11] MEDS: Albuterol/Ipratropium Neb 3 ML AERS HHN SCH ×4 (00:47→18:53)
--- NOTE | 2017-12-11 00:47 | History & Physical ---
ADMIT DATE: 12/10/2017 CHIEF COMPLAINT: Altered level of consciousness. HISTORY OF PRESENT ILLNESS: The patient is a 77-year-old male with long history of diabetes mellitus, hypertension, dementia, chronic kidney disease, dysphagia, status post G-tube placement, presented to the Emergency Room with altered level of consciousness on arrival, was evaluated by the ER physician. Initial workup significant for severe anemia, dehydration, acute kidney injury, possible aspiration pneumonia. The patient admitted to hospital to the ICU, started on IV fluid, antibiotics, 2 units of blood ordered to be transfused. Hematology consultation, Infectious Disease consultation, and Pulmonology consulted on the case. The patient is a poor historian. PAST MEDICAL HISTORY: Significant for diabetes mellitus, hypertension, dementia, psychosis, dysphagia. PAST SURGICAL HISTORY: G-tube placement. ALLERGIES: Lisinopril. MEDICATIONS: Follow admission reconciliation. SOCIAL HISTORY: No smoking, no alcohol, no drugs. FAMILY HISTORY: Noncontributory. REVIEW OF SYSTEMS: SYSTEM: No history of chronic renal disorder. CARDIOVASCULAR SYSTEM: He has history of hypertension. ENDOCRINE SYSTEM: He has history of diabetes mellitus. GASTROINTESTINAL SYSTEM: He has history of G-tube placement. NEUROLOGICAL: He has history of dementia, psychosis. SKELETOMUSCULAR SYSTEM: No muscular dystrophy. HEMATOLOGIC SYSTEM: He has severe anemia. GENITOURINARY: He has history of acute on chronic kidney disease. PHYSICAL EXAMINATION: GENERAL: He is arousable, not coherent. VITAL SIGNS: His temperature is 98, heart rate is 117, and blood pressure is 130/70. HEENT: Normocephalic. Pupils reacting to light and accommodation. Sclerae clear. NECK: Supple. Negative for lymphadenopathy, JVD or bruit. CHEST: Air entry bilaterally diminished associated with rhonchi. HEART: S1, S2 normal. ABDOMEN: Soft, bowel sounds positive. EXTREMITIES: No edema. NEUROLOGIC: He is not coherent, not following commands. SKIN: decubitus ulcer of the buttock area. LABORATORY DATA: Sodium 164, potassium 4.1, BUN 82, creatinine 1.3. BNP 532. White blood cell 4, hemoglobin 5.1, hematocrit 15.4, platelets 117. ASSESSMENT: 1. Aspiration pneumonia. 2. Sepsis. 3. Severe anemia. 4. Thrombocytopenia. 5. Diabetes mellitus. 6. Acute kidney injuries. 7. Dehydration. 8. Dementia. PLAN: The patient is in ICU under Dr. Frost's service, started on IV fluid, IV antibiotic, breathing treatment, IV Protonix. Dr. Andrews consulted on the case. Dr. Karson Renteria consulted on the case. The patient is a full code. CBC, CMP for tomorrow. We will hold the Eliquis today. JOB# [id number]
[2017-12-11] MEDS: Ipratropium Neb 0.5 mg/2.5 mL UD HHN SCH ×4 (02:52→15:00)
[2017-12-11 05:50] LABS: % BASOPHILS 0.2 % (0.0-2.0); % LYMPHOCYTES 28.1 % (20.0-50.0); % MONOCYTES 3.4 % (2.0-10.0); % NEUTROPHILS 67.3 % (40.0-80.0); HEMATOCRIT 24.1 % (41.0-60); MEAN CELL VOLUME 94.4 fl (80-99); MEAN CORPUSCULAR HEMOGLOBIN 31.7 pg (27.0-31.0); MEAN CORPUSCULAR HGB CONC 33.6 pg (28.0-36.0); MEAN PLATELET VOLUME 11.5 fl; MONOCYTE ABSOLUTE 0.1 Th/cmm (0.3-1.0); NEUTROPHILE ABSOLUTE 2.5 Th/cmm (1.8-8.0); PLATELET COUNT 113 Th/cmm (150-400); RED BLOOD COUNT 2.55 Mil/cmm (3.80-5.80); RED CELL DISTRIBUTION WIDTH 13.7 % (11.5-20.0)
[2017-12-11 05:55] LABS: HEMOGLOBIN 8.1 gm/dL (12-16); WHITE BLOOD COUNT 3.6 Th/cmm (4.8-10.8)
[2017-12-11 06:10] LABS: INR 1.2 (0.5-1.4); PROTHROMBIN TIME (TEST) 12.6 SECONDS (9.5-11.5)
[2017-12-11 06:12] LABS: ALB/GLOB RATIO 0.8 (1.0-1.8); ALBUMIN 2.1 gm/dL (4.2-5.5); ALKALINE PHOSPHATASE 104 U/L (34-104); ANION GAP 13.6 (7.0-16.0); BILIRUBIN,TOTAL 0.5 mg/dL (0.3-1.0); CALCIUM SERUM 7.7 mg/dL (8.6-10.3); CARBON DIOXIDE 23.5 mEq/L (21.0-31.0); CHLORIDE 132 mEq/L (98-107); CREATININE - SERUM 1.3 mg/dL (0.7-1.3); GLUCOSE 216 mg/dL (70-105); POTASSIUM SERUM 4.1 mEq/L (3.5-5.1); SGOT 61 U/L (13-39); SGPT/ALT 78 U/L (7-52); TOTAL PROTEIN,SERUM 4.7 gm/dL (6.0-8.3)
[2017-12-11 06:34] LABS: BUN - UREA NITROGEN 80 mg/dL (7-25); SODIUM SERUM 165 mEq/L (136-145)
[2017-12-11 07:31] LABS: URINE MICROSCOPIC INDICATED? YES; URINE SOURCE FOLEY PORT
[2017-12-11 08:06] LABS: URINE COLOR RED
[2017-12-11 08:07] LABS: URINE BILIRUBIN NEGATIVE (NEGATIVE); URINE BLOOD LARGE (NEGATIVE); URINE CLARITY BLOODY (CLEAR); URINE GLUCOSE (UA) NEGATIVE (NEGATIVE); URINE KETONE NEGATIVE (NEGATIVE)
[2017-12-11 08:08] LABS: URINE LEUKOCYTE ESTERASE TRACE (NEGATIVE); URINE NITRATE NEGATIVE (NEGATIVE); URINE PROTEIN 100 mg/dL (NEGATIVE); URINE UROBILINOGEN 0.2 E.U./dL (0.2 - 1.0)
[2017-12-11 08:10] LABS: URINE BACTERIA FEW /hpf (NONE SEEN); URINE EPITHELIAL CELLS RARE /lpf (FEW); URINE RBC >100 /hpf (0-5)
--- NOTE | 2017-12-11 08:47 | Diagnostic Imaging Report ---
Portable chest x-ray Time: 0820 hours History: pneumonia Allowing for portable technique the heart size is normal. No focal pulmonary parenchymal processes. No hilar or mediastinal abnormalities. COPD changes are noted. Impression: No acute abnormalities. COPD changes.
[2017-12-11] MEDS: Insulin Detemir 100 units/mL 10mL Vial SUBQ SCH ×2 (09:28→17:36)
[2017-12-11] MEDS: D5-0.45NS w/20 mEq KCL 1,000 ML IV SCH (11:26)
[2017-12-11] MEDS ORDERED: Dextrose 5% 1,000 ML IV SCH (12:28)
--- NOTE | 2017-12-11 15:50 | Consultation ---
DATE OF CONSULTATION: 12/11/2017 HEMATOLOGY ONCOLOGY CONSULTATION REFERRING PHYSICIAN: Harley Frost M.D. REASON FOR CONSULTATION: Severe anemia and thrombocytopenia. HISTORY OF PRESENT ILLNESS: The patient is a 77-year-old male with history of dementia, hypertension, diabetes, and chronic kidney disease, who was admitted with change in mental status and found to have severe dehydration, acute kidney injury, hypernatremia, and severe anemia, hemoglobin was 5.1 and was transfused, now hemoglobin is 8.1. There is no reported bleeding. PAST MEDICAL HISTORY: Diabetes, hypertension, dementia, psychosis, and dysphagia. PAST SURGICAL HISTORY: Gastric tube placement. MEDICATIONS: Reviewed. ALLERGIES: LISINOPRIL. PHYSICAL EXAMINATION: GENERAL: The patient is awake, not communicative. VITAL SIGNS: Blood pressure is stable, afebrile, and pulse 110. HEENT: Atraumatic. NECK: No lymphadenopathy. CHEST: Good air entry. ABDOMEN: Gastric tube in place. EXTREMITIES: Right arm edema. LABORATORY DATA: White count 3.6, hemoglobin 8.1 after transfusion, platelets 113, MCV 94, creatinine 1.3. PT, PTT normal. Liver functions elevated. Sodium 165. BNP 532. ASSESSMENT: Severe anemia, normocytic, could be differential diagnosis includes blood loss; chronic kidney disease; myelodysplastic syndrome. We will obtain stool occult blood, iron studies, B12, and folate level. Consider starting Epogen for anemia of chronic disease. If the ferritin is adequate and if not, then iron infusion will be considered followed by Epogen. Thank you Dr. Frost for the opportunity to participate in the care of this interesting case. JOB# [id number]
[2017-12-11] MEDS: Venelex 60gm Tube TP SCH (16:30)
--- NOTE | 2017-12-11 17:32 | General Progress Note ---
Subjective - Review of Systems Service Date: 12/11/17 Subjective: resting in bed no verbal Objective - Results Result Diagrams: 12/11/17 05:30 12/11/17 05:30 Recent Labs: Laboratory Last Values WBC 3.6 Th/cmm (4.8-10.8) L 12/11/17 05:30 RBC 2.55 Mil/cmm (3.80-5.80) L 12/11/17 05:30 Hgb 8.1 gm/dL (12-16) L D 12/11/17 05:30 Hct 24.1 % (41.0-60) L 12/11/17 05:30 MCV 94.4 fl (80-99) 12/11/17 05:30 MCH 31.7 pg (27.0-31.0) H 12/11/17 05:30 MCHC Differential 33.6 pg (28.0-36.0) 12/11/17 05:30 RDW 13.7 % (11.5-20.0) 12/11/17 05:30 Plt Count 113 Th/cmm (150-400) L 12/11/17 05:30 MPV 11.5 fl 12/11/17 05:30 Neutrophils % 67.3 % (40.0-80.0) 12/11/17 05:30 Lymphocytes % 28.1 % (20.0-50.0) 12/11/17 05:30 Monocytes % 3.4 % (2.0-10.0) 12/11/17 05:30 Eosinophils % 1.0 % (0.0-5.0) 12/11/17 05:30 Basophils % 0.2 % (0.0-2.0) 12/11/17 05:30 PT 12.6 SECONDS (9.5-11.5) H 12/11/17 05:30 INR 1.20 (0.5-1.4) 12/11/17 05:30 PTT (Actin FS) 24.5 SECONDS (26.0-38.0) L 12/11/17 05:30 Specimen Source Arterial 12/10/17 14:05 Sample Site Left Radial 12/10/17 14:05 pH 7.51 (7.35-7.45) H 12/10/17 14:05 pCO2 36.0 mmHg (35.0-45.0) 12/10/17 14:05 pO2 102.0 mmHg (80.0-100.0) H 12/10/17 14:05 HCO3 29.2 mEq/L (20.0-26.0) H 12/10/17 14:05 Base Excess 5.5 mEq/L (-3.0-3.0) H 12/10/17 14:05 O2 Saturation 98.0 % (92.0-100.0) 12/10/17 14:05 Mario Test YES 12/10/17 14:05 Vent Rate NA 12/10/17 14:05 Inspired O2 50 12/10/17 14:05 Tidal Volume NA 12/10/17 14:05 PEEP NA 12/10/17 14:05 Pressure (ins/psv/peep) NA 12/10/17 14:05 Critical Value E.PICHARDO 12/10/17 14:05 Sodium 165 mEq/L (136-145) H* 12/11/17 05:30 Potassium 4.1 mEq/L (3.5-5.1) 12/11/17 05:30 Chloride 132 mEq/L (98-107) H 12/11/17 05:30 Carbon Dioxide 23.5 mEq/L (21.0-31.0) 12/11/17 05:30 Anion Gap 13.6 (7.0-16.0) 12/11/17 05:30 BUN 80 mg/dL (7-25) H 12/11/17 05:30 Creatinine 1.3 mg/dL (0.7-1.3) 12/11/17 05:30 Est GFR ( Amer) TNP 12/11/17 05:30 Est GFR (Non-Af Amer) TNP 12/11/17 05:30 BUN/Creatinine Ratio 61.5 12/11/17 05:30 Glucose 216 mg/dL (70-105) H 12/11/17 05:30 POC Glucose 220 MG/DL (70 - 105) H 12/11/17 09:27 Whole Bld Lactic Acid 1.12 mmol/L (0.60-1.99) 12/11/17 07:37 Calcium 7.7 mg/dL (8.6-10.3) L 12/11/17 05:30 Total Bilirubin 0.5 mg/dL (0.3-1.0) 12/11/17 05:30 AST 61 U/L (13-39) H 12/11/17 05:30 ALT 78 U/L (7-52) H 12/11/17 05:30 Alkaline Phosphatase 104 U/L (34-104) 12/11/17 05:30 Troponin I 0.44 ng/mL (0.01-0.05) H* D 12/10/17 14:06 B-Natriuretic Peptide 532.0 pg/mL (5.0-100.0) H 12/10/17 14:06 Total Protein 4.7 gm/dL (6.0-8.3) L 12/11/17 05:30 Albumin 2.1 gm/dL (4.2-5.5) L 12/11/17 05:30 Globulin 2.6 gm/dL 12/11/17 05:30 Albumin/Globulin Ratio 0.8 (1.0-1.8) L 12/11/17 05:30 Urine Source [place] 12/11/17 05:20 Urine Color RED 12/11/17 05:20 Urine Clarity BLOODY (CLEAR) 12/11/17 05:20 Urine pH 6.0 (4.6 - 8.0) 12/11/17 05:20 Ur Specific [place] 1.015 (1.005-1.030) 12/11/17 05:20 Urine Protein 100 mg/dL (NEGATIVE) H 12/11/17 05:20 Urine Glucose (UA) NEGATIVE mg/dL (NEGATIVE) 12/11/17 05:20 Urine Ketones NEGATIVE mg/dL (NEGATIVE) 12/11/17 05:20 Urine Blood LARGE (NEGATIVE) H 12/11/17 05:20 Urine Nitrate NEGATIVE (NEGATIVE) 12/11/17 05:20 Urine Bilirubin NEGATIVE (NEGATIVE) 12/11/17 05:20 Urine Urobilinogen 0.2 E.U./dL (0.2 - 1.0) 12/11/17 05:20 Ur Leukocyte Esterase TRACE (NEGATIVE) H 12/11/17 05:20 Urine RBC >100 /hpf (0-5) H 12/11/17 05:20 Urine WBC 2-5 /hpf (0-5) H 12/11/17 05:20 Ur Epithelial Cells RARE /lpf (FEW) 12/11/17 05:20 Urine Bacteria FEW /hpf (NONE SEEN) 12/11/17 05:20 Blood Type A POSITIVE 12/10/17 14:32 Antibody Screen NEGATIVE 12/10/17 14:32 Crossmatch See Detail 12/10/17 14:32 - Physical Exam Vitals and I&O: Vital Signs Temp 98.4 F 12/11/17 12:00 Pulse 89 12/11/17 15:00 Resp 28 12/11/17 15:00 BP 127/75 12/11/17 15:00 Pulse Ox 100 12/11/17 15:00 Intake & Output 12/10/17 12/11/17 12/11/17 18:59 06:59 18:59 Intake Total 1365 485 Output Total 550 Balance 815 485 Weight (lbs) 67.132 kg Intake: Intake, IV Amount 615 485 D5-0.45NS w/20 mEq KCL 1, 515 485 000 ml @ 100 mls/hr IV . Q10H [facility] Rx#:[id number] Piperacillin Sodium/ 100 Tazobact 3.375 gm In Sodium Chloride 0.9% 50 ml @ 100 mls/hr IV Q6HR [facility] Rx#:[id number] Oral 0 Tube Feeding 250 Blood Product 500 Output: Urine 550 Other: # Bowel Movements 2 Stool Characteristics Soft Soft Brown Brown Active Medications: Current Medications Acetaminophen (Tylenol 650mg Supp) 650 mg RC Q4H PRN PRN Reason: Fever > 101 Stop: 02/08/18 23:09 Albuterol/Ipratropium (Duoneb Neb) 3 ml HHN Q6HRT RYAN Stop: 02/09/18 00:59 Last Admin: 12/11/17 12:28 Dose: 3 ml Amlodipine Besylate (Norvasc) 5 mg GT DAILY RYAN Stop: 02/09/18 08:59 Last Admin: 12/11/17 09:22 Dose: 5 mg Atorvastatin Calcium (Lipitor) 20 mg GT HS RYAN Stop: 02/09/18 20:59 Carvedilol (Coreg) 3.125 mg GT BID RYAN Stop: 02/09/18 08:59 Last Admin: 12/11/17 09:23 Dose: 3.125 mg [place] Oil/[place] Balsam/Trypsin (Venelex) 1 appl TP DAILY RYAN Stop: 02/09/18 08:59 Diltiazem HCl (Cardizem) 20 mg IVP Q4HR PRN PRN Reason: HR above 110 Stop: 02/08/18 23:09 Fluconazole (Diflucan) 100 mg PO DAILY RYAN Stop: 02/09/18 08:59 Last Admin: 12/11/17 09:22 Dose: 100 mg Folic Acid (Folate) 1 mg GT DAILY RYAN Stop: 02/10/18 08:59 Glucagon (Glucagen) 1 mg IM PRN RYAN Stop: 02/08/18 23:14 Piperacillin Sod/Tazobactam (Sod 3.375 gm/ Sodium Chloride) 50 mls @ 100 mls/ hr IV Q6HR RYAN Stop: 02/09/18 00:00 Last Admin: 12/11/17 13:01 Dose: 100 mls/hr Dextrose (D5w) 1,000 mls @ 50 mls/hr IV .Q20H RYAN Stop: 02/09/18 12:27 Last Admin: 12/11/17 13:08 Dose: 50 mls/hr Insulin Aspart (Novolog Insulin Sliding Scale) 0 units SUBQ Q6HR RYAN PRN Reason: Protocol Stop: 02/09/18 00:00 Last Admin: 12/11/17 12:53 Dose: 2 units Insulin Detemir (Levemir Insulin) 14 units SUBQ BID RYAN PRN Reason: Protocol Stop: 02/09/18 08:59 Last Admin: 12/11/17 09:28 Dose: 14 units Ipratropium [place] (Atrovent Neb 0.5mg/2.5ml) 0.5 mg HHN Q4HRT RYAN Stop: 02/08/18 22:59 Last Admin: 12/11/17 15:00 Dose: Not Given Miscellaneous (Neomycin/Bacitracin/Polymyxinb) 1 appl TP DAILY [facility] Stop: 02/09/18 08:59 Pantoprazole Sodium (Protonix) 40 mg IVP BID RYAN Stop: 02/09/18 08:59 Last Admin: 12/11/17 09:34 Dose: 40 mg General: No acute distress HEENT: PERRLA, EOMI Neck: Supple, JVD Cardiovascular: Regular rate, Normal S1, Normal S2 Lungs: Clear to auscultation (scattered rhonchi) Abdomen: Bowel sounds - Procedures Procedures: Procedures Procedure Code Date EXCISION OF STOMACH, ENDO, DIAGN [id number] 11/15/17 INSERT TUNNELED CV CATH [id number] 11/15/17 INSERTION OF FEEDING DEVICE INTO STOMACH, ENDO [id number] 11/15/17 INSERTION OF INFUSION DEV INTO R SUBCLAV VEIN, PERC APPROACH 82D532C 11/15/17 PERFORMANCE OF URINARY FILTRATION, <6 HRS/DAY [id number] 11/15/17 REMOVAL OF INFUSION DEVICE FROM UPPER VEIN, PERC APPROACH [id number] 11/15/17 TRANSFUSE NONAUT RED BLOOD CELLS IN PERIPH VEIN, PERC 63931H6 11/15/17 ULTRASONOGRAPHY OF RIGHT SUBCLAVIAN VEIN, GUIDANCE [id number] 11/15/17 Assessment/Plan - Problem List Patient Problems: All Active Problems SEVERE RESPIRATORY DISTRESS (Acute) - Assessment Assessment: aspiration pneumonia sepsis severe anemia hypernatremia DM PENNY dementia - Plan Plan: cont current treatment change IVF to D5W monitor elytes
[2017-12-11 18:05] LABS: MEAN CELL VOLUME 96.2 fl (80-99); MEAN CORPUSCULAR HEMOGLOBIN 31.3 pg (27.0-31.0); MEAN CORPUSCULAR HGB CONC 32.6 pg (28.0-36.0); MEAN PLATELET VOLUME 9.8 fl; PLATELET COUNT 96 Th/cmm (150-400); RED BLOOD COUNT 2.42 Mil/cmm (3.80-5.80); RED CELL DISTRIBUTION WIDTH 14.6 % (11.5-20.0); WHITE BLOOD COUNT 4.3 Th/cmm (4.8-10.8)
[2017-12-11 18:22] LABS: ALB/GLOB RATIO 0.8 (1.0-1.8); ALKALINE PHOSPHATASE 99 U/L (34-104); ANION GAP 11.8 (7.0-16.0); BILIRUBIN,TOTAL 0.4 mg/dL (0.3-1.0); BUN - UREA NITROGEN 77 mg/dL (7-25); CALCIUM SERUM 7.5 mg/dL (8.6-10.3); CARBON DIOXIDE 24.2 mEq/L (21.0-31.0); CHLORIDE 133 mEq/L (98-107); CREATININE - SERUM 1.3 mg/dL (0.7-1.3); GLUCOSE 164 mg/dL (70-105); SGOT 55 U/L (13-39); SGPT/ALT 73 U/L (7-52); TOTAL PROTEIN,SERUM 4.4 gm/dL (6.0-8.3)
--- NOTE | 2017-12-11 18:22 | Infectious Disease Prog Note ---
Infectious Disease Subjective - Review of Systems Service Date: 12/11/17 Subjective: cc uti hematuria pn hpi- pt on iv bax hb 8 after transfusion ros no fevr o/e vss chaest ckar abd soft folley hematuria ext pulse Infectious Disease Objective - Results Result Diagrams: 12/11/17 05:30 12/11/17 05:30 Recent Labs: Laboratory Last Values WBC 3.6 Th/cmm (4.8-10.8) L 12/11/17 05:30 RBC 2.55 Mil/cmm (3.80-5.80) L 12/11/17 05:30 Hgb 8.1 gm/dL (12-16) L D 12/11/17 05:30 Hct 24.1 % (41.0-60) L 12/11/17 05:30 MCV 94.4 fl (80-99) 12/11/17 05:30 MCH 31.7 pg (27.0-31.0) H 12/11/17 05:30 MCHC Differential 33.6 pg (28.0-36.0) 12/11/17 05:30 RDW 13.7 % (11.5-20.0) 12/11/17 05:30 Plt Count 113 Th/cmm (150-400) L 12/11/17 05:30 MPV 11.5 fl 12/11/17 05:30 Neutrophils % 67.3 % (40.0-80.0) 12/11/17 05:30 Lymphocytes % 28.1 % (20.0-50.0) 12/11/17 05:30 Monocytes % 3.4 % (2.0-10.0) 12/11/17 05:30 Eosinophils % 1.0 % (0.0-5.0) 12/11/17 05:30 Basophils % 0.2 % (0.0-2.0) 12/11/17 05:30 PT 12.6 SECONDS (9.5-11.5) H 12/11/17 05:30 INR 1.20 (0.5-1.4) 12/11/17 05:30 PTT (Actin FS) 24.5 SECONDS (26.0-38.0) L 12/11/17 05:30 Specimen Source Arterial 12/10/17 14:05 Sample Site Left Radial 12/10/17 14:05 pH 7.51 (7.35-7.45) H 12/10/17 14:05 pCO2 36.0 mmHg (35.0-45.0) 12/10/17 14:05 pO2 102.0 mmHg (80.0-100.0) H 12/10/17 14:05 HCO3 29.2 mEq/L (20.0-26.0) H 12/10/17 14:05 Base Excess 5.5 mEq/L (-3.0-3.0) H 12/10/17 14:05 O2 Saturation 98.0 % (92.0-100.0) 12/10/17 14:05 Mario Test YES 12/10/17 14:05 Vent Rate NA 12/10/17 14:05 Inspired O2 50 12/10/17 14:05 Tidal Volume NA 12/10/17 14:05 PEEP NA 12/10/17 14:05 Pressure (ins/psv/peep) NA 12/10/17 14:05 Critical Value E.PICHARDO 12/10/17 14:05 Sodium 165 mEq/L (136-145) H* 12/11/17 05:30 Potassium 4.1 mEq/L (3.5-5.1) 12/11/17 05:30 Chloride 132 mEq/L (98-107) H 12/11/17 05:30 Carbon Dioxide 23.5 mEq/L (21.0-31.0) 12/11/17 05:30 Anion Gap 13.6 (7.0-16.0) 12/11/17 05:30 BUN 80 mg/dL (7-25) H 12/11/17 05:30 Creatinine 1.3 mg/dL (0.7-1.3) 12/11/17 05:30 Est GFR ( Amer) TNP 12/11/17 05:30 Est GFR (Non-Af Amer) TNP 12/11/17 05:30 BUN/Creatinine Ratio 61.5 12/11/17 05:30 Glucose 216 mg/dL (70-105) H 12/11/17 05:30 POC Glucose 144 MG/DL (70 - 105) H 12/11/17 17:30 Whole Bld Lactic Acid 1.12 mmol/L (0.60-1.99) 12/11/17 07:37 Calcium 7.7 mg/dL (8.6-10.3) L 12/11/17 05:30 Total Bilirubin 0.5 mg/dL (0.3-1.0) 12/11/17 05:30 AST 61 U/L (13-39) H 12/11/17 05:30 ALT 78 U/L (7-52) H 12/11/17 05:30 Alkaline Phosphatase 104 U/L (34-104) 12/11/17 05:30 Troponin I 0.44 ng/mL (0.01-0.05) H* D 12/10/17 14:06 B-Natriuretic Peptide 532.0 pg/mL (5.0-100.0) H 12/10/17 14:06 Total Protein 4.7 gm/dL (6.0-8.3) L 12/11/17 05:30 Albumin 2.1 gm/dL (4.2-5.5) L 12/11/17 05:30 Globulin 2.6 gm/dL 12/11/17 05:30 Albumin/Globulin Ratio 0.8 (1.0-1.8) L 12/11/17 05:30 Urine Source [place] 12/11/17 05:20 Urine Color RED 12/11/17 05:20 Urine Clarity BLOODY (CLEAR) 12/11/17 05:20 Urine pH 6.0 (4.6 - 8.0) 12/11/17 05:20 Ur Specific [place] 1.015 (1.005-1.030) 12/11/17 05:20 Urine Protein 100 mg/dL (NEGATIVE) H 12/11/17 05:20 Urine Glucose (UA) NEGATIVE mg/dL (NEGATIVE) 12/11/17 05:20 Urine Ketones NEGATIVE mg/dL (NEGATIVE) 12/11/17 05:20 Urine Blood LARGE (NEGATIVE) H 12/11/17 05:20 Urine Nitrate NEGATIVE (NEGATIVE) 12/11/17 05:20 Urine Bilirubin NEGATIVE (NEGATIVE) 12/11/17 05:20 Urine Urobilinogen 0.2 E.U./dL (0.2 - 1.0) 12/11/17 05:20 Ur Leukocyte Esterase TRACE (NEGATIVE) H 12/11/17 05:20 Urine RBC >100 /hpf (0-5) H 12/11/17 05:20 Urine WBC 2-5 /hpf (0-5) H 12/11/17 05:20 Ur Epithelial Cells RARE /lpf (FEW) 12/11/17 05:20 Urine Bacteria FEW /hpf (NONE SEEN) 12/11/17 05:20 Blood Type A POSITIVE 12/10/17 14:32 Antibody Screen NEGATIVE 12/10/17 14:32 Crossmatch See Detail 12/10/17 14:32 - Physical Exam Vitals and I&O: Vital Signs Temp 98.4 F 12/11/17 12:00 Pulse 87 12/11/17 17:34 Resp 28 12/11/17 15:00 BP 127/78 12/11/17 17:34 Pulse Ox 100 12/11/17 15:00 Intake & Output 12/10/17 12/11/17 12/11/17 18:59 06:59 18:59 Intake Total 1365 535 Output Total 550 Balance 815 535 Weight (lbs) 67.132 kg Intake: Intake, IV Amount 615 535 D5-0.45NS w/20 mEq KCL 1, 515 485 000 ml @ 100 mls/hr IV . Q10H [facility] Rx#:[id number] Piperacillin Sodium/ 100 50 Tazobact 3.375 gm In Sodium Chloride 0.9% 50 ml @ 100 mls/hr IV Q6HR [facility] Rx#:[id number] Oral 0 Tube Feeding 250 Blood Product 500 Output: Urine 550 Other: # Bowel Movements 2 Stool Characteristics Soft Soft Brown Brown Active Medications: Current Medications Acetaminophen (Tylenol 650mg Supp) 650 mg RC Q4H PRN PRN Reason: Fever > 101 Stop: 02/08/18 23:09 Albuterol/Ipratropium (Duoneb Neb) 3 ml HHN Q6HRT RYAN Stop: 02/09/18 00:59 Last Admin: 12/11/17 12:28 Dose: 3 ml Amlodipine Besylate (Norvasc) 5 mg GT DAILY RYAN Stop: 02/09/18 08:59 Last Admin: 12/11/17 09:22 Dose: 5 mg Atorvastatin Calcium (Lipitor) 20 mg GT HS RYAN Stop: 02/09/18 20:59 Carvedilol (Coreg) 3.125 mg GT BID RYAN Stop: 02/09/18 08:59 Last Admin: 12/11/17 17:34 Dose: 3.125 mg [place] Oil/[place] Balsam/Trypsin (Venelex) 1 appl TP DAILY RYAN Stop: 02/09/18 08:59 Diltiazem HCl (Cardizem) 20 mg IVP Q4HR PRN PRN Reason: HR above 110 Stop: 02/08/18 23:09 Fluconazole (Diflucan) 100 mg PO DAILY RYAN Stop: 02/09/18 08:59 Last Admin: 12/11/17 09:22 Dose: 100 mg Folic Acid (Folate) 1 mg GT DAILY RYAN Stop: 02/10/18 08:59 Glucagon (Glucagen) 1 mg IM PRN RYAN Stop: 02/08/18 23:14 Piperacillin Sod/Tazobactam (Sod 3.375 gm/ Sodium Chloride) 50 mls @ 100 mls/ hr IV Q6HR RYAN Stop: 02/09/18 00:00 Last Admin: 12/11/17 17:42 Dose: 100 mls/hr Dextrose (D5w) 1,000 mls @ 50 mls/hr IV .Q20H RYAN Stop: 02/09/18 12:27 Last Admin: 12/11/17 13:08 Dose: 50 mls/hr Insulin Aspart (Novolog Insulin Sliding Scale) 0 units SUBQ Q6HR RYAN PRN Reason: Protocol Stop: 02/09/18 00:00 Last Admin: 12/11/17 17:40 Dose: Not Given Insulin Detemir (Levemir Insulin) 14 units SUBQ BID RYAN PRN Reason: Protocol Stop: 02/09/18 08:59 Last Admin: 12/11/17 17:36 Dose: 14 units Ipratropium [place] (Atrovent Neb 0.5mg/2.5ml) 0.5 mg HHN Q4HRT RYAN Stop: 02/08/18 22:59 Last Admin: 12/11/17 15:00 Dose: Not Given Miscellaneous (Neomycin/Bacitracin/Polymyxinb) 1 appl TP DAILY RYAN Stop: 02/09/18 08:59 Pantoprazole Sodium (Protonix) 40 mg IVP BID RYAN Stop: 02/09/18 08:59 Last Admin: 12/11/17 17:35 Dose: 40 mg - Procedures Procedures: Procedures Procedure Code Date EXCISION OF STOMACH, ENDO, DIAGN [id number] 11/15/17 INSERT TUNNELED CV CATH [id number] 11/15/17 INSERTION OF FEEDING DEVICE INTO STOMACH, ENDO [id number] 11/15/17 INSERTION OF INFUSION DEV INTO R SUBCLAV VEIN, PERC APPROACH [id number] 11/15/17 PERFORMANCE OF URINARY FILTRATION, <6 HRS/DAY [id number] 11/15/17 REMOVAL OF INFUSION DEVICE FROM UPPER VEIN, PERC APPROACH [id number] 11/15/17 TRANSFUSE NONAUT RED BLOOD CELLS IN PERIPH VEIN, PERC 63399E5 11/15/17 ULTRASONOGRAPHY OF RIGHT SUBCLAVIAN VEIN, GUIDANCE [id number] 11/15/17 Infectious Disease Assmt/Plan - Problem List Patient Problems: All Active Problems SEVERE RESPIRATORY DISTRESS (Acute)
[2017-12-11 18:32] LABS: HEMATOCRIT 23.2 % (41.0-60)
[2017-12-11 18:35] LABS: HEMOGLOBIN 7.6 gm/dL (12-16); SODIUM SERUM 165 mEq/L (136-145)
[2017-12-11 18:45] LABS: BAND NEUTROPHILE 9 % (0-10); EOSINOPHIL 3 % (0-5); LYMPHOCYTE 32 % (20-50); MONOCYTE 4 % (2-10); NEUTROPHILS 52 % (40-80)
[2017-12-11 18:46] LABS: ANISOCYTOSIS 1+; CORRECTED WBC 3.7 Th/cmm; PLATELET ESTIMATE DECREASED PLATELETS (NORMAL); PLATELET MORPHOLOGY GIANT PLATELETS SEEN (NORMAL); POLYCHROMASIA 1+
--- NOTE | 2017-12-11 19:18 | Consultation ---
DATE OF CONSULTATION: 12/10/2017 PRIMARY CARE PHYSICIAN: Dr. Frost. HISTORY OF PRESENT ILLNESS: This is a 77-year-old male was discharged couple of weeks ago after prolonged stay in the hospital for sepsis. The patient was discharged to shelter, started having shortness of breath and the patient was admitted to ICU with respiratory insufficiency, pneumonia, UTI. Infectious disease consultation was called. The patient's antibiotic adjusted and examination was possible. PAST MEDICAL HISTORY: Coronary artery disease, benign prostatic hypertrophy, chronic kidney disease, COPD, hyperlipidemia, hypothyroidism, type 2 diabetes, atrial fibrillation, hypertension, and chronic kidney disease. FAMILY HISTORY: Negative. SOCIAL HISTORY: Nonsmoker. ALLERGIES: LISINOPRIL. REVIEW OF SYSTEMS: A 14-point review of system negative except above. PHYSICAL EXAMINATION: GENERAL: The patient is awake. VITAL SIGNS: Stable. HEENT: Mild pallor. No icterus or plaque. NECK: Supple. No cervical lymph nodes. ABDOMEN: Soft and nontender. GENITOURINARY: Torres catheter. Has hematuria. EXTREMITIES: Pulses are palpable in all the limbs. Reflex are equal on both sides, plantar flexors. NODES: No thyroid and no cervical lymph nodes. LABORATORY DATA: White count is 4000, hemoglobin 5.1 gram, and platelets 117. UA shows protein of 100, large blood, more than 100 rbc's, wbc's 2-5, trace of leukocyte esterase. Cultures are ordered. Chemistry shows creatinine 1.7. Also chest x-ray reviewed shows infiltrate. DIAGNOSES: 1. Chronic kidney disease, hematuria, urinary tract infection. The patient started on Zosyn. 2. Pneumonia. The patient started on Diflucan. Sputum culture positive for Nydia. 3. Diabetes, insulin. 4. Hypertension, amlodipine. 5. History of cerebrovascular accident. The patient is stable at this time. PRBC given. Thank you, Dr. Frost for this consultation. JOB# [id number]
--- NOTE | 2017-12-11 20:28 | Consultation ---
DATE OF CONSULTATION: 12/11/[address] Frost. Thank you very much Dr. Frost for this consultation. HISTORY OF PRESENT ILLNESS: This is a 77-year-old male, who was recently discharged after being treated for respiratory failure, sepsis and presented with altered level of consciousness and was found to have severe anemia, dehydration, possible pneumonia and the patient was admitted for treatment and management. Blood transfusion was done. The patient was admitted to Intensive Care Unit. Blood pressure is holding up not requiring any pressors. The patient has underlying history of diabetes, hypertension, dysphagia, dementia, psychosis, G-tube feeding. REVIEW OF SYSTEMS: Unable to obtain because of the patient's condition. PHYSICAL EXAMINATION: GENERAL: Arousable, but lethargic. VITAL SIGNS: Temperature is 97.0, T-max is 100.6, pulse is 101, respirations is 20, blood pressure is 145/80, saturation is 98%-100%. HEENT: Atraumatic, normocephalic. Pupils are reactive to light and accommodation. Ears, nose and throat normal. NECK: Supple. No JVD. CHEST: There is rhonchi in bases. HEART: Regular rate and rhythm. ABDOMEN: Soft. EXTREMITIES: No edema. IMAGING: Chest x-ray, possible atelectasis on left base, otherwise no obvious infiltrates. LABORATORY DATA: WBC 3.6; hemoglobin 8.1, up from 5.1; platelets 113. Initial ABGs: pH 7.50, pCO2 of 36, pO2 of 102, bicarbonate 29. Sodium 165, potassium 4.1, BUN 80, creatinine 1.3. UA showed large blood, protein, leuko esterase, and wbc's. IMPRESSION: This is a 77-year-old male with: 1. Sepsis. 2. Urinary tract infection. 3. Respiratory failure secondary to above. 4. Hypernatremia with dehydration. 5. Acute renal failure. PLAN: 1. IV fluids. 2. Nebulizer treatment. 3. Antibiotics. 4. Supportive care and followup labs. Thank you very much for this consultation. I will follow the patient with you. JOB# [id number]
[2017-12-11] MEDS: Atorvastatin Calcium 10 MG TAB GT SCH (20:51)
[2017-12-11 21:45] LABS: A1C % 6.4 % (4.0-6.0)
[2017-12-12] MEDS: INSULIN ASPART SLIDING SCALE 100 UNITS/ML UNIT SUBQ SCH ×3 (00:54→17:31)
[2017-12-12] MEDS: Albuterol/Ipratropium Neb 3 ML AERS HHN SCH ×4 (01:17→18:54)
[2017-12-12 07:17] LABS: % BASOPHILS 0.1 % (0.0-2.0); % EOSINOPHILS 5.7 % (0.0-5.0); % LYMPHOCYTES 20.3 % (20.0-50.0); % NEUTROPHILS 68.9 % (40.0-80.0); EOSINOPHILE ABSOLUTE 0.2 Th/cmm (0.1-0.4); LYMPHOCYTE ABSOLUTE 0.9 Th/cmm (1.5-3.0); MEAN CELL VOLUME 95.5 fl (80-99); MEAN CORPUSCULAR HGB CONC 33.5 pg (28.0-36.0); MEAN PLATELET VOLUME 11.7 fl; MONOCYTE ABSOLUTE 0.2 Th/cmm (0.3-1.0); PLATELET COUNT 105 Th/cmm (150-400); RED BLOOD COUNT 1.92 Mil/cmm (3.80-5.80); WHITE BLOOD COUNT 4.3 Th/cmm (4.8-10.8)
[2017-12-12 07:26] LABS: HEMATOCRIT 18.3 % (41.0-60); HEMOGLOBIN 6.2 gm/dL (12-16)
[2017-12-12 08:08] LABS: ALB/GLOB RATIO 0.8 (1.0-1.8); ALBUMIN 1.8 gm/dL (4.2-5.5); ALKALINE PHOSPHATASE 94 U/L (34-104); ANION GAP 9.8 (7.0-16.0); BILIRUBIN,TOTAL 0.3 mg/dL (0.3-1.0); BUN - UREA NITROGEN 72 mg/dL (7-25); CALCIUM SERUM 7.3 mg/dL (8.6-10.3); CARBON DIOXIDE 24.9 mEq/L (21.0-31.0); CHLORIDE 134 mEq/L (98-107); CREATININE - SERUM 1.3 mg/dL (0.7-1.3); POTASSIUM SERUM 3.7 mEq/L (3.5-5.1); SGOT 59 U/L (13-39); SGPT/ALT 69 U/L (7-52)
[2017-12-12] MEDS ORDERED: Dextrose 5% 1,000 ML IV SCH (08:26)
[2017-12-12 08:29] LABS: GLUCOSE 84 mg/dL (70-105); SODIUM SERUM 165 mEq/L (136-145)
[2017-12-12] MEDS: Insulin Detemir 100 units/mL 10mL Vial SUBQ SCH ×2 (09:29→16:56)
--- NOTE | 2017-12-12 13:52 | General Progress Note ---
Subjective - Review of Systems Service Date: 12/12/17 Subjective: resting in bed no verbal Objective - Results Result Diagrams: 12/12/17 07:07 12/12/17 07:07 Recent Labs: Laboratory Last Values WBC 4.3 Th/cmm (4.8-10.8) L 12/12/17 07:07 Corrected WBC (auto) 3.7 Th/cmm 12/11/17 17:58 RBC 1.92 Mil/cmm (3.80-5.80) L 12/12/17 07:07 Hgb 6.2 gm/dL (12-16) L* 12/12/17 07:07 Hct 18.3 % (41.0-60) L* D 12/12/17 07:07 MCV 95.5 fl (80-99) 12/12/17 07:07 MCH 32.0 pg (27.0-31.0) H 12/12/17 07:07 MCHC Differential 33.5 pg (28.0-36.0) 12/12/17 07:07 RDW 15.0 % (11.5-20.0) 12/12/17 07:07 Plt Count 105 Th/cmm (150-400) L 12/12/17 07:07 MPV 11.7 fl 12/12/17 07:07 Neutrophils % 68.9 % (40.0-80.0) 12/12/17 07:07 Band Neutrophils % 9 % (0-10) 12/11/17 17:58 Lymphocytes % 20.3 % (20.0-50.0) 12/12/17 07:07 Monocytes % 5.0 % (2.0-10.0) 12/12/17 07:07 Eosinophils % 5.7 % (0.0-5.0) H 12/12/17 07:07 Basophils % 0.1 % (0.0-2.0) 12/12/17 07:07 Neutrophils (Manual) 52 % (40-80) 12/11/17 17:58 Lymphocytes 32 % (20-50) 12/11/17 17:58 Monocytes 4 % (2-10) 12/11/17 17:58 Eosinophils 3 % (0-5) 12/11/17 17:58 Nucleated RBCs 16.0 % (0-0) H 12/11/17 17:58 Platelet Estimate DECREASED PLATELETS (NORMAL) 12/11/17 17:58 Platelet Morphology GIANT PLATELETS SEEN (NORMAL) 12/11/17 17:58 Polychromasia 1+ 12/11/17 17:58 Anisocytosis 1+ 12/11/17 17:58 RBC Morph Micro Appear ABNORMAL (NORMAL) 12/11/17 17:58 PT 12.6 SECONDS (9.5-11.5) H 12/11/17 05:30 INR 1.20 (0.5-1.4) 12/11/17 05:30 PTT (Actin FS) 24.5 SECONDS (26.0-38.0) L 12/11/17 05:30 Specimen Source Arterial 12/10/17 14:05 Sample Site Left Radial 12/10/17 14:05 pH 7.51 (7.35-7.45) H 12/10/17 14:05 pCO2 36.0 mmHg (35.0-45.0) 12/10/17 14:05 pO2 102.0 mmHg (80.0-100.0) H 12/10/17 14:05 HCO3 29.2 mEq/L (20.0-26.0) H 12/10/17 14:05 Base Excess 5.5 mEq/L (-3.0-3.0) H 12/10/17 14:05 O2 Saturation 98.0 % (92.0-100.0) 12/10/17 14:05 Mario Test YES 12/10/17 14:05 Vent Rate NA 12/10/17 14:05 Inspired O2 50 12/10/17 14:05 Tidal Volume NA 12/10/17 14:05 PEEP NA 12/10/17 14:05 Pressure (ins/psv/peep) NA 12/10/17 14:05 Critical Value E.PICHARDO 12/10/17 14:05 Sodium 165 mEq/L (136-145) H* 12/12/17 07:07 Potassium 3.7 mEq/L (3.5-5.1) 12/12/17 07:07 Chloride 134 mEq/L (98-107) H 12/12/17 07:07 Carbon Dioxide 24.9 mEq/L (21.0-31.0) 12/12/17 07:07 Anion Gap 9.8 (7.0-16.0) 12/12/17 07:07 BUN 72 mg/dL (7-25) H 12/12/17 07:07 Creatinine 1.3 mg/dL (0.7-1.3) 12/12/17 07:07 Est GFR ( Amer) TNP 12/12/17 07:07 Est GFR (Non-Af Amer) TNP 12/12/17 07:07 BUN/Creatinine Ratio 55.4 12/12/17 07:07 Glucose 84 mg/dL (70-105) D 12/12/17 07:07 POC Glucose 105 MG/DL (70 - 105) 12/12/17 11:18 Hemoglobin A1c % 6.4 % (4.0-6.0) H 12/11/17 05:30 Whole Bld Lactic Acid 1.12 mmol/L (0.60-1.99) 12/11/17 07:37 Calcium 7.3 mg/dL (8.6-10.3) L 12/12/17 07:07 Total Bilirubin 0.3 mg/dL (0.3-1.0) 12/12/17 07:07 AST 59 U/L (13-39) H 12/12/17 07:07 ALT 69 U/L (7-52) H 12/12/17 07:07 Alkaline Phosphatase 94 U/L (34-104) 12/12/17 07:07 Troponin I 0.44 ng/mL (0.01-0.05) H* D 12/10/17 14:06 B-Natriuretic Peptide 532.0 pg/mL (5.0-100.0) H 12/10/17 14:06 Total Protein 4.0 gm/dL (6.0-8.3) L 12/12/17 07:07 Albumin 1.8 gm/dL (4.2-5.5) L 12/12/17 07:07 Globulin 2.2 gm/dL 12/12/17 07:07 Albumin/Globulin Ratio 0.8 (1.0-1.8) L 12/12/17 07:07 Urine Source [place] 12/11/17 05:20 Urine Color RED 12/11/17 05:20 Urine Clarity BLOODY (CLEAR) 12/11/17 05:20 Urine pH 6.0 (4.6 - 8.0) 12/11/17 05:20 Ur Specific [place] 1.015 (1.005-1.030) 12/11/17 05:20 Urine Protein 100 mg/dL (NEGATIVE) H 12/11/17 05:20 Urine Glucose (UA) NEGATIVE mg/dL (NEGATIVE) 12/11/17 05:20 Urine Ketones NEGATIVE mg/dL (NEGATIVE) 12/11/17 05:20 Urine Blood LARGE (NEGATIVE) H 12/11/17 05:20 Urine Nitrate NEGATIVE (NEGATIVE) 12/11/17 05:20 Urine Bilirubin NEGATIVE (NEGATIVE) 12/11/17 05:20 Urine Urobilinogen 0.2 E.U./dL (0.2 - 1.0) 12/11/17 05:20 Ur Leukocyte Esterase TRACE (NEGATIVE) H 12/11/17 05:20 Urine RBC >100 /hpf (0-5) H 12/11/17 05:20 Urine WBC 2-5 /hpf (0-5) H 12/11/17 05:20 Ur Epithelial Cells RARE /lpf (FEW) 12/11/17 05:20 Urine Bacteria FEW /hpf (NONE SEEN) 12/11/17 05:20 Blood Type A POSITIVE 12/10/17 14:32 Antibody Screen NEGATIVE 12/10/17 14:32 Crossmatch See Detail 12/10/17 14:32 - Physical Exam Vitals and I&O: Vital Signs Temp 98.7 F 12/12/17 08:00 Pulse 87 12/12/17 12:53 Resp 29 12/12/17 12:53 BP 153/90 12/12/17 09:19 Pulse Ox 100 12/12/17 12:53 Intake & Output 12/11/17 12/12/17 12/12/17 18:59 06:59 18:59 Intake Total 535 3088.333 Output Total 1410 Balance 535 1678.333 Weight (lbs) 68.039 kg Intake: Intake, IV Amount 535 993.333 D5-0.45NS w/20 mEq KCL 1, 485 000 ml @ 100 mls/hr IV . Q10H [facility] Rx#:[id number] Dextrose 5% 1,000 ml @ 50 843.333 mls/hr IV .Q20H [facility] Rx#: [id number] Piperacillin Sodium/ 50 150 Tazobact 3.375 gm In Sodium Chloride 0.9% 50 ml @ 100 mls/hr IV Q6HR [facility] Rx#:[id number] Tube Feeding 1245 Other 850 Output: Urine 1410 Other: # Bowel Movements 0 Stool Characteristics Soft Brown Brown Active Medications: Current Medications Acetaminophen (Tylenol 650mg Supp) 650 mg RC Q4H PRN PRN Reason: Fever > 101 Stop: 02/08/18 23:09 Albuterol/Ipratropium (Duoneb Neb) 3 ml HHN Q6HRT [facility] Stop: 02/09/18 00:59 Last Admin: 12/12/17 12:52 Dose: 3 ml Amlodipine Besylate (Norvasc) 5 mg GT DAILY [facility] Stop: 02/09/18 08:59 Last Admin: 12/12/17 09:19 Dose: 5 mg Atorvastatin Calcium (Lipitor) 20 mg GT HS [facility] Stop: 02/09/18 20:59 Last Admin: 12/11/17 20:51 Dose: 20 mg Carvedilol (Coreg) 3.125 mg GT BID [facility] Stop: 02/09/18 08:59 Last Admin: 12/12/17 09:18 Dose: 3.125 mg [place] Oil/[place] Balsam/Trypsin (Venelex) 1 appl TP DAILY [facility] Stop: 02/09/18 08:59 Last Admin: 12/11/17 16:30 Dose: 1 appl Diltiazem HCl (Cardizem) 20 mg IVP Q4HR PRN PRN Reason: HR above 110 Stop: 02/08/18 23:09 Fluconazole (Diflucan) 100 mg PO DAILY [facility] Stop: 02/09/18 08:59 Last Admin: 12/12/17 09:19 Dose: 100 mg Folic Acid (Folate) 1 mg GT DAILY [facility] Stop: 02/10/18 08:59 Last Admin: 12/12/17 09:19 Dose: 1 mg Glucagon (Glucagen) 1 mg IM PRN PRN PRN Reason: BS BELOW 60 & NOT TOLERATE PO Stop: 02/08/18 23:14 Piperacillin Sod/Tazobactam (Sod 3.375 gm/ Sodium Chloride) 50 mls @ 100 mls/ hr IV Q6HR [facility] Stop: 02/09/18 00:00 Last Infusion: 12/12/17 06:40 Dose: Infused Dextrose (D5w) 1,000 mls @ 70 mls/hr IV .[id number] [facility] Stop: 02/10/18 08:25 Last Admin: 12/12/17 12:23 Dose: 70 mls/hr Insulin Aspart (Novolog Insulin Sliding Scale) 0 units SUBQ Q6HR [facility] PRN Reason: Protocol Stop: 02/09/18 00:00 Last Admin: 12/12/17 12:16 Dose: Not Given Insulin Detemir (Levemir Insulin) 14 units SUBQ BID [facility] PRN Reason: Protocol Stop: 02/09/18 08:59 Last Admin: 12/12/17 09:29 Dose: 14 units Neomycin/Polymyxin/Bacitracin (Triple Antibiotic Pkt) 1 pkt TP DAILY [facility] Stop: 02/09/18 08:59 Pantoprazole Sodium (Protonix) 40 mg IVP BID [facility] Stop: 02/09/18 08:59 Last Admin: 12/12/17 09:19 Dose: 40 mg General: No acute distress HEENT: PERRLA, EOMI Neck: Supple, JVD Cardiovascular: Regular rate, Normal S1, Normal S2 Lungs: Clear to auscultation (scattered rhonchi) Abdomen: Bowel sounds - Procedures Procedures: Procedures Procedure Code Date EXCISION OF STOMACH, ENDO, DIAGN [id number] 11/15/17 INSERT TUNNELED CV CATH [id number] 11/15/17 INSERTION OF FEEDING DEVICE INTO STOMACH, ENDO [id number] 11/15/17 INSERTION OF INFUSION DEV INTO R SUBCLAV VEIN, PERC APPROACH [id number] 11/15/17 PERFORMANCE OF URINARY FILTRATION, <6 HRS/DAY [id number] 11/15/17 REMOVAL OF INFUSION DEVICE FROM UPPER VEIN, PERC APPROACH 92TY64H 11/15/17 TRANSFUSE NONAUT RED BLOOD CELLS IN PERIPH VEIN, PERC 94670X4 11/15/17 ULTRASONOGRAPHY OF RIGHT SUBCLAVIAN VEIN, GUIDANCE [id number] 11/15/17 Assessment/Plan - Problem List Patient Problems: All Active Problems SEVERE RESPIRATORY DISTRESS (Acute) - Assessment Assessment: aspiration pneumonia sepsis severe anemia hypernatremia DM PENNY dementia - Plan Plan: cont current treatment renal consult increase water flush
[2017-12-12] MEDS: Venelex 60gm Tube TP SCH (16:58)
[2017-12-12] MEDS ORDERED: Probiotic Screen MC PRN (17:06)
--- NOTE | 2017-12-12 17:42 | Infectious Disease Prog Note ---
Infectious Disease Subjective - Review of Systems Subjective: cc uti hematuria pn hpi- pt on iv bax hb 8 after transfusion all cx negative so far ros no fevr o/e vss chaest ckar abd soft folley hematuria ext pulse Infectious Disease Objective - Results Result Diagrams: 12/12/17 07:07 12/12/17 07:07 Recent Labs: Laboratory Last Values WBC 4.3 Th/cmm (4.8-10.8) L 12/12/17 07:07 Corrected WBC (auto) 3.7 Th/cmm 12/11/17 17:58 RBC 1.92 Mil/cmm (3.80-5.80) L 12/12/17 07:07 Hgb 6.2 gm/dL (12-16) L* 12/12/17 07:07 Hct 18.3 % (41.0-60) L* D 12/12/17 07:07 MCV 95.5 fl (80-99) 12/12/17 07:07 MCH 32.0 pg (27.0-31.0) H 12/12/17 07:07 MCHC Differential 33.5 pg (28.0-36.0) 12/12/17 07:07 RDW 15.0 % (11.5-20.0) 12/12/17 07:07 Plt Count 105 Th/cmm (150-400) L 12/12/17 07:07 MPV 11.7 fl 12/12/17 07:07 Neutrophils % 68.9 % (40.0-80.0) 12/12/17 07:07 Band Neutrophils % 9 % (0-10) 12/11/17 17:58 Lymphocytes % 20.3 % (20.0-50.0) 12/12/17 07:07 Monocytes % 5.0 % (2.0-10.0) 12/12/17 07:07 Eosinophils % 5.7 % (0.0-5.0) H 12/12/17 07:07 Basophils % 0.1 % (0.0-2.0) 12/12/17 07:07 Neutrophils (Manual) 52 % (40-80) 12/11/17 17:58 Lymphocytes 32 % (20-50) 12/11/17 17:58 Monocytes 4 % (2-10) 02/03/18 17:58 Eosinophils 3 % (0-5) 12/11/17 17:58 Nucleated RBCs 16.0 % (0-0) H 12/11/17 17:58 Platelet Estimate DECREASED PLATELETS (NORMAL) 12/11/17 17:58 Platelet Morphology GIANT PLATELETS SEEN (NORMAL) 12/11/17 17:58 Polychromasia 1+ 12/11/17 17:58 Anisocytosis 1+ 12/11/17 17:58 RBC Morph Micro Appear ABNORMAL (NORMAL) 12/11/17 17:58 PT 12.6 SECONDS (9.5-11.5) H 12/11/17 05:30 INR 1.20 (0.5-1.4) 12/11/17 05:30 PTT (Actin FS) 24.5 SECONDS (26.0-38.0) L 12/11/17 05:30 Specimen Source Arterial 12/10/17 14:05 Sample Site Left Radial 12/10/17 14:05 pH 7.51 (7.35-7.45) H 12/10/17 14:05 pCO2 36.0 mmHg (35.0-45.0) 12/10/17 14:05 pO2 102.0 mmHg (80.0-100.0) H 12/10/17 14:05 HCO3 29.2 mEq/L (20.0-26.0) H 12/10/17 14:05 Base Excess 5.5 mEq/L (-3.0-3.0) H 12/10/17 14:05 O2 Saturation 98.0 % (92.0-100.0) 12/10/17 14:05 Mario Test YES 12/10/17 14:05 Vent Rate NA 12/10/17 14:05 Inspired O2 50 12/10/17 14:05 Tidal Volume NA 12/10/17 14:05 PEEP NA 12/10/17 14:05 Pressure (ins/psv/peep) NA 12/10/17 14:05 Critical Value E.PICHARDO 12/10/17 14:05 Sodium 165 mEq/L (136-145) H* 12/12/17 07:07 Potassium 3.7 mEq/L (3.5-5.1) 12/12/17 07:07 Chloride 134 mEq/L (98-107) H 12/12/17 07:07 Carbon Dioxide 24.9 mEq/L (21.0-31.0) 12/12/17 07:07 Anion Gap 9.8 (7.0-16.0) 12/12/17 07:07 BUN 72 mg/dL (7-25) H 12/12/17 07:07 Creatinine 1.3 mg/dL (0.7-1.3) 12/12/17 07:07 Est GFR ( Amer) TNP 12/12/17 07:07 Est GFR (Non-Af Amer) TNP 12/12/17 07:07 BUN/Creatinine Ratio 55.4 12/12/17 07:07 Glucose 84 mg/dL (70-105) D 12/12/17 07:07 POC Glucose 95 MG/DL (70 - 105) 12/12/17 16:51 Hemoglobin A1c % 6.4 % (4.0-6.0) H 12/11/17 05:30 Whole Bld Lactic Acid 1.12 mmol/L (0.60-1.99) 12/11/17 07:37 Calcium 7.3 mg/dL (8.6-10.3) L 12/12/17 07:07 Total Bilirubin 0.3 mg/dL (0.3-1.0) 12/12/17 07:07 AST 59 U/L (13-39) H 12/12/17 07:07 ALT 69 U/L (7-52) H 12/12/17 07:07 Alkaline Phosphatase 94 U/L (34-104) 12/12/17 07:07 Troponin I 0.44 ng/mL (0.01-0.05) H* D 12/10/17 14:06 B-Natriuretic Peptide 532.0 pg/mL (5.0-100.0) H 12/10/17 14:06 Total Protein 4.0 gm/dL (6.0-8.3) L 12/12/17 07:07 Albumin 1.8 gm/dL (4.2-5.5) L 12/12/17 07:07 Globulin 2.2 gm/dL 12/12/17 07:07 Albumin/Globulin Ratio 0.8 (1.0-1.8) L 12/12/17 07:07 Urine Source [place] 12/11/17 05:20 Urine Color RED 12/11/17 05:20 Urine Clarity BLOODY (CLEAR) 12/11/17 05:20 Urine pH 6.0 (4.6 - 8.0) 12/11/17 05:20 Ur Specific [place] 1.015 (1.005-1.030) 12/11/17 05:20 Urine Protein 100 mg/dL (NEGATIVE) H 12/11/17 05:20 Urine Glucose (UA) NEGATIVE mg/dL (NEGATIVE) 12/11/17 05:20 Urine Ketones NEGATIVE mg/dL (NEGATIVE) 12/11/17 05:20 Urine Blood LARGE (NEGATIVE) H 12/11/17 05:20 Urine Nitrate NEGATIVE (NEGATIVE) 12/11/17 05:20 Urine Bilirubin NEGATIVE (NEGATIVE) 12/11/17 05:20 Urine Urobilinogen 0.2 E.U./dL (0.2 - 1.0) 12/11/17 05:20 Ur Leukocyte Esterase TRACE (NEGATIVE) H 12/11/17 05:20 Urine RBC >100 /hpf (0-5) H 12/11/17 05:20 Urine WBC 2-5 /hpf (0-5) H 12/11/17 05:20 Ur Epithelial Cells RARE /lpf (FEW) 12/11/17 05:20 Urine Bacteria FEW /hpf (NONE SEEN) 12/11/17 05:20 Blood Type A POSITIVE 12/10/17 14:32 Antibody Screen NEGATIVE 12/10/17 14:32 Crossmatch See Detail 12/10/17 14:32 - Physical Exam Vitals and I&O: Vital Signs Temp 98 F 12/12/17 16:00 Pulse 100 12/12/17 16:41 Resp 21 12/12/17 16:00 BP 143/94 12/12/17 16:41 Pulse Ox 100 12/12/17 16:00 Intake & Output 12/11/17 12/12/17 12/12/17 18:59 06:59 18:59 Intake Total 535 3088.333 410.5 Output Total 1410 Balance 535 1678.333 410.5 Weight (lbs) 68.039 kg Intake: Intake, IV Amount 535 993.333 410.5 D5-0.45NS w/20 mEq KCL 1, 485 000 ml @ 100 mls/hr IV . Q10H [facility] Rx#:[id number] Dextrose 5% 1,000 ml @ 50 843.333 mls/hr IV .Q20H [facility] Rx#: [id number] Dextrose 5% 1,000 ml @ 70 360.5 mls/hr IV .[id number] [facility] Rx#:[id number] Piperacillin Sodium/ 50 150 50 Tazobact 3.375 gm In Sodium Chloride 0.9% 50 ml @ 100 mls/hr IV Q6HR [facility] Rx#:[id number] Tube Feeding 1245 Other 850 Output: Urine 1410 Other: # Bowel Movements 0 Stool Characteristics Soft Brown Brown Active Medications: Current Medications Acetaminophen (Tylenol 650mg Supp) 650 mg RC Q4H PRN PRN Reason: Fever > 101 Stop: 02/08/18 23:09 Albuterol/Ipratropium (Duoneb Neb) 3 ml HHN Q6HRT [facility] Stop: 02/09/18 00:59 Last Admin: 12/12/17 12:52 Dose: 3 ml Amlodipine Besylate (Norvasc) 5 mg GT DAILY [facility] Stop: 02/09/18 08:59 Last Admin: 12/12/17 09:19 Dose: 5 mg Atorvastatin Calcium (Lipitor) 20 mg GT HS [facility] Stop: 02/09/18 20:59 Last Admin: 12/11/17 20:51 Dose: 20 mg Carvedilol (Coreg) 3.125 mg GT BID [facility] Stop: 02/09/18 08:59 Last Admin: 12/12/17 16:41 Dose: 3.125 mg [place] Oil/[place] Balsam/Trypsin (Venelex) 1 appl TP DAILY [facility] Stop: 02/09/18 08:59 Last Admin: 12/12/17 16:58 Dose: 1 appl Diltiazem HCl (Cardizem) 20 mg IVP Q4HR PRN PRN Reason: HR above 110 Stop: 02/08/18 23:09 Fluconazole (Diflucan) 100 mg PO DAILY [facility] Stop: 02/09/18 08:59 Last Admin: 12/12/17 09:19 Dose: 100 mg Folic Acid (Folate) 1 mg GT DAILY [facility] Stop: 02/10/18 08:59 Last Admin: 12/12/17 09:19 Dose: 1 mg Glucagon (Glucagen) 1 mg IM PRN PRN PRN Reason: BS BELOW 60 & NOT TOLERATE PO Stop: 02/08/18 23:14 Piperacillin Sod/Tazobactam (Sod 3.375 gm/ Sodium Chloride) 50 mls @ 100 mls/ hr IV Q6HR [facility] Stop: 02/09/18 00:00 Last Infusion: 12/12/17 16:33 Dose: Infused Dextrose (D5w) 1,000 mls @ 70 mls/hr IV .[id number] [facility] Stop: 02/10/18 08:25 Last Infusion: 12/12/17 17:32 Dose: 70 mls/hr Insulin Aspart (Novolog Insulin Sliding Scale) 0 units SUBQ Q6HR [facility] PRN Reason: Protocol Stop: 02/09/18 00:00 Last Admin: 12/12/17 17:31 Dose: Not Given Insulin Detemir (Levemir Insulin) 14 units SUBQ BID [facility] PRN Reason: Protocol Stop: 02/09/18 08:59 Last Admin: 12/12/17 16:56 Dose: Not Given Miscellaneous (Probiotic Screen) 1 ea MC PRN PRN PRN Reason: PROTOCOL Stop: 02/10/18 17:05 Neomycin/Polymyxin/Bacitracin (Triple Antibiotic Pkt) 1 pkt TP DAILY [facility] Stop: 02/09/18 08:59 Pantoprazole Sodium (Protonix) 40 mg IVP BID [facility] Stop: 02/09/18 08:59 Last Admin: 12/12/17 16:41 Dose: 40 mg - Procedures Procedures: Procedures Procedure Code Date EXCISION OF STOMACH, ENDO, DIAGN [id number] 11/15/17 INSERT TUNNELED CV CATH [id number] 11/15/17 INSERTION OF FEEDING DEVICE INTO STOMACH, ENDO [id number] 11/15/17 INSERTION OF INFUSION DEV INTO R SUBCLAV VEIN, PERC APPROACH 40N175X 11/15/17 PERFORMANCE OF URINARY FILTRATION, <6 HRS/DAY 1Z1P28B 11/15/17 REMOVAL OF INFUSION DEVICE FROM UPPER VEIN, PERC APPROACH 41NT94X 11/15/17 TRANSFUSE NONAUT RED BLOOD CELLS IN PERIPH VEIN, PERC 60160T6 11/15/17 ULTRASONOGRAPHY OF RIGHT SUBCLAVIAN VEIN, GUIDANCE [id number] 11/15/17 Infectious Disease Assmt/Plan - Problem List Patient Problems: All Active Problems SEVERE RESPIRATORY DISTRESS (Acute)
[2017-12-12] MEDS: Atorvastatin Calcium 10 MG TAB GT SCH (21:41)
[2017-12-13 00:13] LABS: PLATELET COUNT 99 Th/cmm (150-400)
[2017-12-13 00:15] LABS: MEAN CELL VOLUME 93.1 fl (80-99); MEAN CORPUSCULAR HEMOGLOBIN 31.3 pg (27.0-31.0); MEAN CORPUSCULAR HGB CONC 33.6 pg (28.0-36.0); MEAN PLATELET VOLUME 10.5 fl; RED BLOOD COUNT 2.96 Mil/cmm (3.80-5.80); RED CELL DISTRIBUTION WIDTH 14.6 % (11.5-20.0); WHITE BLOOD COUNT 4.7 Th/cmm (4.8-10.8)
[2017-12-13 00:16] LABS: HEMATOCRIT 27.6 % (41.0-60); HEMOGLOBIN 9.3 gm/dL (12-16)
[2017-12-13 00:31] LABS: ANION GAP 9.8 (7.0-16.0); BUN - UREA NITROGEN 64 mg/dL (7-25); CALCIUM SERUM 7.3 mg/dL (8.6-10.3); CARBON DIOXIDE 23.7 mEq/L (21.0-31.0); CHLORIDE 130 mEq/L (98-107); CREATININE - SERUM 1.2 mg/dL (0.7-1.3); POTASSIUM SERUM 3.5 mEq/L (3.5-5.1)
--- NOTE | 2017-12-13 00:34 | Consultation ---
DATE OF CONSULTATION: LOCATION: [facility] ICU bed 6. IDENTIFICATION: This is a 77-year-old male patient not able to give any history. The patient has been seen for Dr. Bunch. History has been taken from nursing staff and reviewing the chart. HISTORY OF PRESENT ILLNESS: A 77-year-old male patient who is a known case of dementia, CKD II-III, dysphagia, hypertension, and diabetes mellitus. The patient also has a G-tube placement for dysphagia. The patient is a residence of [facility]. The patient was brought in due to change in his mental status. Upon evaluation, the patient was found to have severe anemia. The patient has received multiple packed RBC transfusion. The patient during this time is found to have acute renal failure, hypernatremia, and hence renal consultation has been requested. Meanwhile, the patient also has been seen by Infectious disease oracle identity management consultant and supervisor sterile processing. The patient currently is receiving G-tube feeding, water at 150 mL q.6h. hour. The patient was on 1/2 NS IV, which has been switched to D5W last night at 75 mL per hour. There is no history of any vomiting or diarrhea. The patient is tolerating tube feeding well. PAST MEDICAL AND SURGICAL HISTORY: History of psychosis, diabetes mellitus, hypertension, dysphagia, CVA, G-tube placement, CKD. SOCIAL HISTORY: No history of alcoholism or smoking. ALLERGIES: The patient is allergic to LISINOPRIL. PAST SURGICAL HISTORY: G-tube placement. The patient has a Torres catheter placed here during this admission. Other than above, no other history is available to me at this time. PHYSICAL EXAMINATION: GENERAL: A 77-year-old male patient. VITAL SIGNS: Pulse 98, blood pressure 153/90, and oxygen saturation 100. Yesterday's intake 2365. Torres output 550. Today, the patient has more than 500 mL of urine, cloudy color in Torres catheter. HEENT: Head normocephalic. Muscle mass wasting. Ear, nose, throat: No bleeding. NECK: No jugular venous pressure, not distended. LUNGS: Good air entry both sides. Right base rales. HEART: Regular, no rub or gallop. ABDOMEN: Soft, not distended. Bowel sounds present. G-tube site without bleeding or discharge. EXTREMITIES: No edema of the leg. No calf tenderness. Scrotum slightly edematous. LABORATORY DATA: WBC 4.3, hemoglobin 6.2, and platelet 105,000. Sodium 165, potassium 3.7, chloride 134, CO2 24, BUN 72 which improved from 77, creatinine 1.3 same as yesterday, and blood sugar 71. LFTs elevated. Albumin 1.8. Urinalysis not available. IMPRESSION: 1. Acute kidney injury. 2. Hypernatremia. 3. Water deficit. 4. G-tube placement. 5. Dysphagia. 6. Cerebrovascular accident. 7. Diabetes mellitus. 8. Hypertension. 9. Thrombocytopenia. 10. Severe anemia. 11. Dementia. 12. Rule out pneumonia. PLAN: Increase D5W IV at 125 mL per hour. Increase water 250 mL q.4. hour in G tube. Obtain kidney ultrasound, urinalysis, calcium, phosphorus, magnesium, CMP, CBC with differential in the morning. Dr. Bunch will resume the care of this patient starting tomorrow. JOB# [id number]
[2017-12-13 00:40] LABS: BAND NEUTROPHILE 10 % (0-10); CORRECTED WBC 4.4 Th/cmm; EOSINOPHIL 4 % (0-5); LYMPHOCYTE 20 % (20-50); MONOCYTE 6 % (2-10); NEUTROPHILS 60 % (40-80); PLATELET ESTIMATE SLIGHT DECREASED (NORMAL); TOTAL CELLS COUNTED 100
[2017-12-13 01:08] LABS: GLUCOSE 188 mg/dL (70-105); SODIUM SERUM 160 mEq/L (136-145)
[2017-12-13] MEDS: INSULIN ASPART SLIDING SCALE 100 UNITS/ML UNIT SUBQ SCH ×4 (01:10→17:11)
[2017-12-13] MEDS: Albuterol/Ipratropium Neb 3 ML AERS HHN SCH ×4 (01:40→18:49)
[2017-12-13] MEDS: Morphine Sulfate 2 mg/mL 1mL Syr IVP PRN (01:43)
[2017-12-13] MEDS: Dextrose 5% 1,000 ML IV SCH ×2 (02:15→08:53)
--- NOTE | 2017-12-13 07:51 | Diagnostic Imaging Report ---
Renal ultrasound HISTORY: Abnormal renal function test The right kidney measures 10.2 x 5.9 x 5.1 cm. Slight increase in cortical echogenicity. No significant focal lesions. No hydronephrosis. The left kidney measures 10.1 x 5.6 x 4.9 cm. Normal cortical contour and echogenicity. No focal lesions or hydronephrosis. There is extensive abnormal intraluminal density within the urinary bladder which is somewhat contracted. Etiology uncertain. Clinical correlation and follow-up recommended. Neoplastic involvement cannot be sonographically excluded. IMPRESSION: 1. Extensive abnormal density within the urinary bladder. Etiology is uncertain. Neoplasm cannot be excluded. Follow-up is needed. 2. Normal renal sizes with no hydronephrosis. 3. Slight increase in cortical echogenicity of the right kidney. Significance should be correlated with renal function tests.
[2017-12-13 08:27] LABS: % BASOPHILS 0.3 % (0.0-2.0); % EOSINOPHILS 4.7 % (0.0-5.0); % LYMPHOCYTES 15.1 % (20.0-50.0); % MONOCYTES 4.5 % (2.0-10.0); % NEUTROPHILS 75.4 % (40.0-80.0); EOSINOPHILE ABSOLUTE 0.2 Th/cmm (0.1-0.4); HEMATOCRIT 29.2 % (41.0-60); HEMOGLOBIN 9.8 gm/dL (12-16); LYMPHOCYTE ABSOLUTE 0.8 Th/cmm (1.5-3.0); MEAN CELL VOLUME 97.2 fl (80-99); MEAN CORPUSCULAR HEMOGLOBIN 32.6 pg (27.0-31.0); MEAN CORPUSCULAR HGB CONC 33.6 pg (28.0-36.0); MEAN PLATELET VOLUME 10.1 fl; MONOCYTE ABSOLUTE 0.2 Th/cmm (0.3-1.0); PLATELET COUNT 105 Th/cmm (150-400); RED BLOOD COUNT 3.01 Mil/cmm (3.80-5.80); RED CELL DISTRIBUTION WIDTH 15.1 % (11.5-20.0); WHITE BLOOD COUNT 5.2 Th/cmm (4.8-10.8)
[2017-12-13 08:45] LABS: ALB/GLOB RATIO 0.7 (1.0-1.8); ALBUMIN 1.9 gm/dL (4.2-5.5); ALKALINE PHOSPHATASE 133 U/L (34-104); ANION GAP 10.9 (7.0-16.0); BILIRUBIN,TOTAL 0.4 mg/dL (0.3-1.0); BUN - UREA NITROGEN 65 mg/dL (7-25); CALCIUM SERUM 7.4 mg/dL (8.6-10.3); CARBON DIOXIDE 23.7 mEq/L (21.0-31.0); CHLORIDE 127 mEq/L (98-107); CREATININE - SERUM 1.3 mg/dL (0.7-1.3); GLUCOSE 240 mg/dL (70-105); MAGNESIUM 2.3 mg/dL (1.9-2.7); PHOSPHOROUS 1.3 mg/dL (2.5-5.0); POTASSIUM SERUM 3.6 mEq/L (3.5-5.1); SGOT 64 U/L (13-39); SGPT/ALT 77 U/L (7-52); TOTAL PROTEIN,SERUM 4.5 gm/dL (6.0-8.3)
[2017-12-13 08:47] LABS: SODIUM SERUM 158 mEq/L (136-145)
[2017-12-13] MEDS: Triple Antibiotic 0.94 gm Pkt TP SCH (08:52)
[2017-12-13] MEDS: Insulin Detemir 100 units/mL 10mL Vial SUBQ SCH ×2 (08:54→17:10)
[2017-12-13] MEDS: Venelex 60gm Tube TP SCH (08:55)
--- NOTE | 2017-12-13 09:24 | Diagnostic Imaging Report ---
Portable chest x-ray HISTORY: Shortness of breath Compared with prior exam of December 11, 2017, increased density with partial obscuration of left hemidiaphragm is seen. Findings suggest underlying infiltrate and/or atelectasis. The heart remains enlarged. IMPRESSION: 1. Density with partial obscuration of the left hemidiaphragm suggesting underlying consolidation and/or atelectasis.
--- NOTE | 2017-12-13 11:17 | General Progress Note ---
Subjective - Review of Systems Service Date: 12/13/17 Objective - Results Result Diagrams: 12/13/17 07:45 12/13/17 07:45 Recent Labs: Laboratory Last Values WBC 5.2 Th/cmm (4.8-10.8) 12/13/17 07:45 Corrected WBC (auto) 4.4 Th/cmm 12/12/17 23:59 RBC 3.01 Mil/cmm (3.80-5.80) L 12/13/17 07:45 Hgb 9.8 gm/dL (12-16) L 12/13/17 07:45 Hct 29.2 % (41.0-60) L 12/13/17 07:45 MCV 97.2 fl (80-99) 12/13/17 07:45 MCH 32.6 pg (27.0-31.0) H 12/13/17 07:45 MCHC Differential 33.6 pg (28.0-36.0) 12/13/17 07:45 RDW 15.1 % (11.5-20.0) 12/13/17 07:45 Plt Count 105 Th/cmm (150-400) L 12/13/17 07:45 MPV 10.1 fl 12/13/17 07:45 Neutrophils % 75.4 % (40.0-80.0) 12/13/17 07:45 Band Neutrophils % 10 % (0-10) 12/12/17 23:59 Lymphocytes % 15.1 % (20.0-50.0) L 12/13/17 07:45 Monocytes % 4.5 % (2.0-10.0) 12/13/17 07:45 Eosinophils % 4.7 % (0.0-5.0) 12/13/17 07:45 Basophils % 0.3 % (0.0-2.0) 12/13/17 07:45 Neutrophils (Manual) 60 % (40-80) 12/12/17 23:59 Lymphocytes 20 % (20-50) 12/12/17 23:59 Monocytes 6 % (2-10) 12/12/17 23:59 Eosinophils 4 % (0-5) 12/12/17 23:59 Nucleated RBCs 6.0 % (0-0) H 12/12/17 23:59 Platelet Estimate SLIGHT DECREASED (NORMAL) 12/12/17 23:59 Platelet Morphology GIANT PLATELETS SEEN (NORMAL) 12/11/17 17:58 Polychromasia 1+ 12/11/17 17:58 Anisocytosis 1+ 12/11/17 17:58 RBC Morph Micro Appear ABNORMAL (NORMAL) 12/11/17 17:58 PT 12.6 SECONDS (9.5-11.5) H 12/11/17 05:30 INR 1.20 (0.5-1.4) 12/11/17 05:30 PTT (Actin FS) 24.5 SECONDS (26.0-38.0) L 12/11/17 05:30 Specimen Source Arterial 12/10/17 14:05 Sample Site Left Radial 12/10/17 14:05 pH 7.51 (7.35-7.45) H 12/10/17 14:05 pCO2 36.0 mmHg (35.0-45.0) 12/10/17 14:05 pO2 102.0 mmHg (80.0-100.0) H 12/10/17 14:05 HCO3 29.2 mEq/L (20.0-26.0) H 12/10/17 14:05 Base Excess 5.5 mEq/L (-3.0-3.0) H 12/10/17 14:05 O2 Saturation 98.0 % (92.0-100.0) 12/10/17 14:05 Mario Test YES 12/10/17 14:05 Vent Rate NA 12/10/17 14:05 Inspired O2 50 12/10/17 14:05 Tidal Volume NA 12/10/17 14:05 PEEP NA 12/10/17 14:05 Pressure (ins/psv/peep) NA 12/10/17 14:05 Critical Value E.PICHARDO 12/10/17 14:05 Sodium 158 mEq/L (136-145) H 12/13/17 07:45 Potassium 3.6 mEq/L (3.5-5.1) 12/13/17 07:45 Chloride 127 mEq/L (98-107) H 12/13/17 07:45 Carbon Dioxide 23.7 mEq/L (21.0-31.0) 12/13/17 07:45 Anion Gap 10.9 (7.0-16.0) 12/13/17 07:45 BUN 65 mg/dL (7-25) H 12/13/17 07:45 Creatinine 1.3 mg/dL (0.7-1.3) 12/13/17 07:45 Est GFR ( Amer) TNP 12/13/17 07:45 Est GFR (Non-Af Amer) TNP 12/13/17 07:45 BUN/Creatinine Ratio 50.0 12/13/17 07:45 Glucose 240 mg/dL (70-105) H 12/13/17 07:45 POC Glucose 251 MG/DL (70 - 105) H 12/13/17 08:48 Hemoglobin A1c % 6.4 % (4.0-6.0) H 12/11/17 05:30 Whole Bld Lactic Acid 1.12 mmol/L (0.60-1.99) 12/11/17 07:37 Calcium 7.4 mg/dL (8.6-10.3) L 12/13/17 07:45 Phosphorus 1.3 mg/dL (2.5-5.0) L 12/13/17 07:45 Magnesium 2.3 mg/dL (1.9-2.7) 12/13/17 07:45 Total Bilirubin 0.4 mg/dL (0.3-1.0) 12/13/17 07:45 AST 64 U/L (13-39) H 12/13/17 07:45 ALT 77 U/L (7-52) H 12/13/17 07:45 Alkaline Phosphatase 133 U/L (34-104) H 12/13/17 07:45 Troponin I 0.44 ng/mL (0.01-0.05) H* D 12/10/17 14:06 B-Natriuretic Peptide 532.0 pg/mL (5.0-100.0) H 12/10/17 14:06 Total Protein 4.5 gm/dL (6.0-8.3) L 12/13/17 07:45 Albumin 1.9 gm/dL (4.2-5.5) L 12/13/17 07:45 Globulin 2.6 gm/dL 12/13/17 07:45 Albumin/Globulin Ratio 0.7 (1.0-1.8) L 12/13/17 07:45 Urine Source [place] 12/11/17 05:20 Urine Color RED 12/11/17 05:20 Urine Clarity BLOODY (CLEAR) 12/11/17 05:20 Urine pH 6.0 (4.6 - 8.0) 12/11/17 05:20 Ur Specific [place] 1.015 (1.005-1.030) 12/11/17 05:20 Urine Protein 100 mg/dL (NEGATIVE) H 12/11/17 05:20 Urine Glucose (UA) NEGATIVE mg/dL (NEGATIVE) 12/11/17 05:20 Urine Ketones NEGATIVE mg/dL (NEGATIVE) 12/11/17 05:20 Urine Blood LARGE (NEGATIVE) H 12/11/17 05:20 Urine Nitrate NEGATIVE (NEGATIVE) 12/11/17 05:20 Urine Bilirubin NEGATIVE (NEGATIVE) 12/11/17 05:20 Urine Urobilinogen 0.2 E.U./dL (0.2 - 1.0) 12/11/17 05:20 Ur Leukocyte Esterase TRACE (NEGATIVE) H 12/11/17 05:20 Urine RBC >100 /hpf (0-5) H 12/11/17 05:20 Urine WBC 2-5 /hpf (0-5) H 12/11/17 05:20 Ur Epithelial Cells RARE /lpf (FEW) 12/11/17 05:20 Urine Bacteria FEW /hpf (NONE SEEN) 12/11/17 05:20 Blood Type A POSITIVE 12/10/17 14:32 Antibody Screen NEGATIVE 12/10/17 14:32 Crossmatch See Detail 12/10/17 14:32 - Physical Exam Vitals and I&O: Vital Signs Temp 97.8 F 12/13/17 08:00 Pulse 85 12/13/17 09:00 Resp 15 12/13/17 09:00 BP 153/85 12/13/17 09:00 Pulse Ox 100 12/13/17 09:00 Intake & Output 12/12/17 12/13/17 12/13/17 18:59 06:59 18:59 Intake Total 410.5 2750 331.667 Output Total 1350 Balance 410.5 1400 331.667 Weight (lbs) 68.039 kg Intake: Intake, IV Amount 410.5 150 331.667 Dextrose 5% 1,000 ml @ 50 331.667 mls/hr IV .Q20H [facility] Rx#: [id number] Dextrose 5% 1,000 ml @ 70 360.5 mls/hr IV .[id number] [facility] Rx#:[id number] Piperacillin Sodium/ 50 150 Tazobact 3.375 gm In Sodium Chloride 0.9% 50 ml @ 100 mls/hr IV Q6HR [facility] Rx#:[id number] Tube Feeding 1050 Other 1550 Output: Urine 1350 Other: # Bowel Movements 1 Active Medications: Current Medications Acetaminophen (Tylenol 650mg Supp) 650 mg RC Q4H PRN PRN Reason: Fever > 101 Stop: 02/08/18 23:09 Albuterol/Ipratropium (Duoneb Neb) 3 ml HHN Q6HRT [facility] Stop: 02/09/18 00:59 Last Admin: 12/13/17 06:49 Dose: 3 ml Amlodipine Besylate (Norvasc) 5 mg GT DAILY [facility] Stop: 02/09/18 08:59 Last Admin: 12/13/17 08:52 Dose: 5 mg Atorvastatin Calcium (Lipitor) 20 mg GT HS [facility] Stop: 02/09/18 20:59 Last Admin: 12/12/17 21:41 Dose: 20 mg Carvedilol (Coreg) 3.125 mg GT BID [facility] Stop: 02/09/18 08:59 Last Admin: 12/13/17 08:52 Dose: 3.125 mg [place] Oil/[place] Balsam/Trypsin (Venelex) 1 appl TP DAILY [facility] Stop: 02/09/18 08:59 Last Admin: 12/13/17 08:55 Dose: 1 appl Diltiazem HCl (Cardizem) 20 mg IVP Q4HR PRN PRN Reason: HR above 110 Stop: 02/08/18 23:09 Last Admin: 12/12/17 23:15 Dose: 20 mg Fluconazole (Diflucan) 100 mg PO DAILY [facility] Stop: 02/09/18 08:59 Last Admin: 12/13/17 08:51 Dose: 100 mg Folic Acid (Folate) 1 mg GT DAILY [facility] Stop: 02/10/18 08:59 Last Admin: 12/13/17 08:52 Dose: 1 mg Glucagon (Glucagen) 1 mg IM PRN PRN PRN Reason: BS BELOW 60 & NOT TOLERATE PO Stop: 02/08/18 23:14 Piperacillin Sod/Tazobactam (Sod 3.375 gm/ Sodium Chloride) 50 mls @ 100 mls/ hr IV Q6HR [facility] Stop: 02/09/18 00:00 Last Infusion: 12/13/17 05:45 Dose: Infused Dextrose (D5w) 1,000 mls @ 50 mls/hr IV .Q20H [facility] Stop: 02/10/18 08:25 Last Admin: 12/13/17 08:53 Dose: 50 mls/hr Insulin Aspart (Novolog Insulin Sliding Scale) 0 units SUBQ Q6HR RYAN PRN Reason: Protocol Stop: 02/09/18 00:00 Last Admin: 12/13/17 08:53 Dose: 4 units Insulin Detemir (Levemir Insulin) 14 units SUBQ BID RYAN PRN Reason: Protocol Stop: 02/09/18 08:59 Last Admin: 12/13/17 08:54 Dose: 14 units Miscellaneous (Probiotic Screen) 1 ea MC PRN PRN PRN Reason: PROTOCOL Stop: 02/10/18 17:05 Morphine Sulfate (Morphine) 1 mg IVP Q4HR PRN PRN Reason: Pain (Severe) Stop: 02/10/18 23:46 Last Admin: 12/13/17 01:43 Dose: 1 mg Neomycin/Polymyxin/Bacitracin (Triple Antibiotic Pkt) 1 pkt TP DAILY [facility] Stop: 02/09/18 08:59 Last Admin: 12/13/17 08:52 Dose: 1 pkt Pantoprazole Sodium (Protonix) 40 mg IVP BID [facility] Stop: 02/09/18 08:59 Last Admin: 12/13/17 08:53 Dose: 40 mg General: No acute distress HEENT: PERRLA, EOMI Neck: Supple, JVD Cardiovascular: Regular rate, Normal S1, Normal S2 Lungs: Clear to auscultation (scattered rhonchi) Abdomen: Bowel sounds Extremities: Other (right arm edema better) - Procedures Procedures: Procedures Procedure Code Date BLOOD TRANSFUSION SERVICE 98708 12/10/17 EXCISION OF STOMACH, ENDO, DIAGN [id number] 11/15/17 INSERT TUNNELED CV CATH [id number] 11/15/17 INSERTION OF FEEDING DEVICE INTO STOMACH, ENDO [id number] 11/15/17 INSERTION OF INFUSION DEV INTO R SUBCLAV VEIN, PERC APPROACH [id number] 11/15/17 PERFORMANCE OF URINARY FILTRATION, <6 HRS/DAY [id number] 11/15/17 REMOVAL OF INFUSION DEVICE FROM UPPER VEIN, PERC APPROACH [id number] 11/15/17 TRANSFUSE NONAUT RED BLOOD CELLS IN PERIPH VEIN, PERC 57763O9 12/10/17 ULTRASONOGRAPHY OF RIGHT SUBCLAVIAN VEIN, GUIDANCE [id number] 11/15/17 Assessment/Plan - Problem List Patient Problems: All Active Problems SEVERE RESPIRATORY DISTRESS (Acute) - Assessment Assessment: * Anemia gauthier is still pending hgb stable Continue gastric tube feeding
--- NOTE | 2017-12-13 15:17 | General Progress Note ---
Subjective - Review of Systems Service Date: 12/13/17 Subjective: awake, comfortable Objective - Results Result Diagrams: 12/13/17 07:45 12/13/17 07:45 Recent Labs: Laboratory Last Values WBC 5.2 Th/cmm (4.8-10.8) 12/13/17 07:45 Corrected WBC (auto) 4.4 Th/cmm 12/12/17 23:59 RBC 3.01 Mil/cmm (3.80-5.80) L 12/13/17 07:45 Hgb 9.8 gm/dL (12-16) L 12/13/17 07:45 Hct 29.2 % (41.0-60) L 12/13/17 07:45 MCV 97.2 fl (80-99) 12/13/17 07:45 MCH 32.6 pg (27.0-31.0) H 12/13/17 07:45 MCHC Differential 33.6 pg (28.0-36.0) 12/13/17 07:45 RDW 15.1 % (11.5-20.0) 12/13/17 07:45 Plt Count 105 Th/cmm (150-400) L 12/13/17 07:45 MPV 10.1 fl 12/13/17 07:45 Neutrophils % 75.4 % (40.0-80.0) 12/13/17 07:45 Band Neutrophils % 10 % (0-10) 12/12/17 23:59 Lymphocytes % 15.1 % (20.0-50.0) L 12/13/17 07:45 Monocytes % 4.5 % (2.0-10.0) 12/13/17 07:45 Eosinophils % 4.7 % (0.0-5.0) 12/13/17 07:45 Basophils % 0.3 % (0.0-2.0) 12/13/17 07:45 Neutrophils (Manual) 60 % (40-80) 12/12/17 23:59 Lymphocytes 20 % (20-50) 12/12/17 23:59 Monocytes 6 % (2-10) 12/12/17 23:59 Eosinophils 4 % (0-5) 12/12/17 23:59 Nucleated RBCs 6.0 % (0-0) H 02/04/18 23:59 Platelet Estimate SLIGHT DECREASED (NORMAL) 12/12/17 23:59 Platelet Morphology GIANT PLATELETS SEEN (NORMAL) 12/11/17 17:58 Polychromasia 1+ 12/11/17 17:58 Anisocytosis 1+ 12/11/17 17:58 RBC Morph Micro Appear ABNORMAL (NORMAL) 12/11/17 17:58 PT 12.6 SECONDS (9.5-11.5) H 12/11/17 05:30 INR 1.20 (0.5-1.4) 12/11/17 05:30 PTT (Actin FS) 24.5 SECONDS (26.0-38.0) L 12/11/17 05:30 Specimen Source Arterial 12/10/17 14:05 Sample Site Left Radial 12/10/17 14:05 pH 7.51 (7.35-7.45) H 12/10/17 14:05 pCO2 36.0 mmHg (35.0-45.0) 12/10/17 14:05 pO2 102.0 mmHg (80.0-100.0) H 12/10/17 14:05 HCO3 29.2 mEq/L (20.0-26.0) H 12/10/17 14:05 Base Excess 5.5 mEq/L (-3.0-3.0) H 12/10/17 14:05 O2 Saturation 98.0 % (92.0-100.0) 12/10/17 14:05 Mario Test YES 12/10/17 14:05 Vent Rate NA 12/10/17 14:05 Inspired O2 50 12/10/17 14:05 Tidal Volume NA 12/10/17 14:05 PEEP NA 12/10/17 14:05 Pressure (ins/psv/peep) NA 12/10/17 14:05 Critical Value E.PICHARDO 12/10/17 14:05 Sodium 158 mEq/L (136-145) H 12/13/17 07:45 Potassium 3.6 mEq/L (3.5-5.1) 12/13/17 07:45 Chloride 127 mEq/L (98-107) H 12/13/17 07:45 Carbon Dioxide 23.7 mEq/L (21.0-31.0) 12/13/17 07:45 Anion Gap 10.9 (7.0-16.0) 12/13/17 07:45 BUN 65 mg/dL (7-25) H 12/13/17 07:45 Creatinine 1.3 mg/dL (0.7-1.3) 12/13/17 07:45 Est GFR ( Amer) TNP 12/13/17 07:45 Est GFR (Non-Af Amer) TNP 12/13/17 07:45 BUN/Creatinine Ratio 50.0 12/13/17 07:45 Glucose 240 mg/dL (70-105) H 12/13/17 07:45 POC Glucose 249 MG/DL (70 - 105) H 12/13/17 12:41 Hemoglobin A1c % 6.4 % (4.0-6.0) H 12/11/17 05:30 Whole Bld Lactic Acid 1.12 mmol/L (0.60-1.99) 12/11/17 07:37 Calcium 7.4 mg/dL (8.6-10.3) L 12/13/17 07:45 Phosphorus 1.3 mg/dL (2.5-5.0) L 12/13/17 07:45 Magnesium 2.3 mg/dL (1.9-2.7) 12/13/17 07:45 Total Bilirubin 0.4 mg/dL (0.3-1.0) 12/13/17 07:45 AST 64 U/L (13-39) H 12/13/17 07:45 ALT 77 U/L (7-52) H 12/13/17 07:45 Alkaline Phosphatase 133 U/L (34-104) H 12/13/17 07:45 Troponin I 0.44 ng/mL (0.01-0.05) H* D 12/10/17 14:06 B-Natriuretic Peptide 532.0 pg/mL (5.0-100.0) H 12/10/17 14:06 Total Protein 4.5 gm/dL (6.0-8.3) L 12/13/17 07:45 Albumin 1.9 gm/dL (4.2-5.5) L 12/13/17 07:45 Globulin 2.6 gm/dL 12/13/17 07:45 Albumin/Globulin Ratio 0.7 (1.0-1.8) L 12/13/17 07:45 Urine Source [place] 12/11/17 05:20 Urine Color RED 12/11/17 05:20 Urine Clarity BLOODY (CLEAR) 12/11/17 05:20 Urine pH 6.0 (4.6 - 8.0) 12/11/17 05:20 Ur Specific [place] 1.015 (1.005-1.030) 12/11/17 05:20 Urine Protein 100 mg/dL (NEGATIVE) H 12/11/17 05:20 Urine Glucose (UA) NEGATIVE mg/dL (NEGATIVE) 12/11/17 05:20 Urine Ketones NEGATIVE mg/dL (NEGATIVE) 12/11/17 05:20 Urine Blood LARGE (NEGATIVE) H 12/11/17 05:20 Urine Nitrate NEGATIVE (NEGATIVE) 12/11/17 05:20 Urine Bilirubin NEGATIVE (NEGATIVE) 12/11/17 05:20 Urine Urobilinogen 0.2 E.U./dL (0.2 - 1.0) 12/11/17 05:20 Ur Leukocyte Esterase TRACE (NEGATIVE) H 12/11/17 05:20 Urine RBC >100 /hpf (0-5) H 12/11/17 05:20 Urine WBC 2-5 /hpf (0-5) H 12/11/17 05:20 Ur Epithelial Cells RARE /lpf (FEW) 12/11/17 05:20 Urine Bacteria FEW /hpf (NONE SEEN) 12/11/17 05:20 Blood Type A POSITIVE 12/10/17 14:32 Antibody Screen NEGATIVE 12/10/17 14:32 Crossmatch See Detail 12/10/17 14:32 - Physical Exam Vitals and I&O: Vital Signs Temp 97.6 F 12/13/17 12:00 Pulse 77 12/13/17 15:00 Resp 17 12/13/17 15:00 BP 145/79 12/13/17 15:00 Pulse Ox 99 12/13/17 15:00 Intake & Output 12/12/17 12/13/17 12/13/17 18:59 06:59 18:59 Intake Total 410.5 2750 331.667 Output Total 1350 Balance 410.5 1400 331.667 Weight (lbs) 68.039 kg Intake: Intake, IV Amount 410.5 150 331.667 Dextrose 5% 1,000 ml @ 50 331.667 mls/hr IV .Q20H [facility] Rx#: [id number] Dextrose 5% 1,000 ml @ 70 360.5 mls/hr IV .[id number] [facility] Rx#:[id number] Piperacillin Sodium/ 50 150 Tazobact 3.375 gm In Sodium Chloride 0.9% 50 ml @ 100 mls/hr IV Q6HR [facility] Rx#:[id number] Tube Feeding 1050 Other 1550 Output: Urine 1350 Other: # Bowel Movements 1 Active Medications: Current Medications Acetaminophen (Tylenol 650mg Supp) 650 mg RC Q4H PRN PRN Reason: Fever > 101 Stop: 02/08/18 23:09 Albuterol/Ipratropium (Duoneb Neb) 3 ml HHN Q6HRT [facility] Stop: 02/09/18 00:59 Last Admin: 12/13/17 12:42 Dose: 3 ml Amlodipine Besylate (Norvasc) 5 mg GT DAILY [facility] Stop: 02/09/18 08:59 Last Admin: 12/13/17 08:52 Dose: 5 mg Atorvastatin Calcium (Lipitor) 20 mg GT HS [facility] Stop: 02/09/18 20:59 Last Admin: 12/12/17 21:41 Dose: 20 mg Carvedilol (Coreg) 3.125 mg GT BID [facility] Stop: 02/09/18 08:59 Last Admin: 12/13/17 08:52 Dose: 3.125 mg [place] Oil/[place] Balsam/Trypsin (Venelex) 1 appl TP DAILY [facility] Stop: 02/09/18 08:59 Last Admin: 12/13/17 08:55 Dose: 1 appl Diltiazem HCl (Cardizem) 20 mg IVP Q4HR PRN PRN Reason: HR above 110 Stop: 02/08/18 23:09 Last Admin: 12/12/17 23:15 Dose: 20 mg Fluconazole (Diflucan) 100 mg PO DAILY [facility] Stop: 02/09/18 08:59 Last Admin: 12/13/17 08:51 Dose: 100 mg Folic Acid (Folate) 1 mg GT DAILY [facility] Stop: 02/10/18 08:59 Last Admin: 12/13/17 08:52 Dose: 1 mg Glucagon (Glucagen) 1 mg IM PRN PRN PRN Reason: BS BELOW 60 & NOT TOLERATE PO Stop: 02/08/18 23:14 Piperacillin Sod/Tazobactam (Sod 3.375 gm/ Sodium Chloride) 50 mls @ 100 mls/ hr IV Q6HR [facility] Stop: 02/09/18 00:00 Last Admin: 12/13/17 12:49 Dose: 100 mls/hr Dextrose (D5w) 1,000 mls @ 50 mls/hr IV .Q20H [facility] Stop: 02/10/18 08:25 Last Admin: 12/13/17 08:53 Dose: 50 mls/hr Insulin Aspart (Novolog Insulin Sliding Scale) 0 units SUBQ Q6HR [facility]AN PRN Reason: Protocol Stop: 02/09/18 00:00 Last Admin: 12/13/17 12:49 Dose: 2 units Insulin Detemir (Levemir Insulin) 14 units SUBQ BID [facility]AN PRN Reason: Protocol Stop: 02/09/18 08:59 Last Admin: 12/13/17 08:54 Dose: 14 units Miscellaneous (Probiotic Screen) 1 ea MC PRN PRN PRN Reason: PROTOCOL Stop: 02/10/18 17:05 Morphine Sulfate (Morphine) 1 mg IVP Q4HR PRN PRN Reason: Pain (Severe) Stop: 02/10/18 23:46 Last Admin: 12/13/17 01:43 Dose: 1 mg Neomycin/Polymyxin/Bacitracin (Triple Antibiotic Pkt) 1 pkt TP DAILY [facility] Stop: 02/09/18 08:59 Last Admin: 12/13/17 08:52 Dose: 1 pkt Pantoprazole Sodium (Protonix) 40 mg IVP BID [facility] Stop: 02/09/18 08:59 Last Admin: 12/13/17 08:53 Dose: 40 mg General: Alert, No acute distress HEENT: PERRLA, EOMI Neck: Supple, +2 carotid pulse wo bruit Cardiovascular: Regular rate, Normal S1, Normal S2 Lungs: Other Abdomen: Bowel sounds, Soft Extremities: Edema, Other (upper ext) Neurological: Sensation intact Skin: no Rash Psych/Mental Status: Mood NL Other physical findings: scrotal edema - Procedures Procedures: Procedures Procedure Code Date BLOOD TRANSFUSION SERVICE 75328 12/10/17 EXCISION OF STOMACH, ENDO, DIAGN [id number] 11/15/17 INSERT TUNNELED CV CATH [id number] 11/15/17 INSERTION OF FEEDING DEVICE INTO STOMACH, ENDO [id number] 11/15/17 INSERTION OF INFUSION DEV INTO R SUBCLAV VEIN, PERC APPROACH [id number] 11/15/17 PERFORMANCE OF URINARY FILTRATION, <6 HRS/DAY [id number] 11/15/17 REMOVAL OF INFUSION DEVICE FROM UPPER VEIN, PERC APPROACH [id number] 11/15/17 TRANSFUSE NONAUT RED BLOOD CELLS IN PERIPH VEIN, PERC 04542W6 12/10/17 ULTRASONOGRAPHY OF RIGHT SUBCLAVIAN VEIN, GUIDANCE [id number] 11/15/17 Assessment/Plan - Problem List Patient Problems: All Active Problems SEVERE RESPIRATORY DISTRESS (Acute) - Assessment Assessment: PENNY Hypernatremia CVA Type 2 DM Ess Htn Thrombocytopenia Severe Anemia - Plan Plan: Lab - Result Diagrams 12/13/17 07:45 12/13/17 07:45 Current Medications Acetaminophen (Tylenol 650mg Supp) 650 mg RC Q4H PRN PRN Reason: Fever > 101 Stop: 02/08/18 23:09 Albuterol/Ipratropium (Duoneb Neb) 3 ml HHN Q6HRT [facility] Stop: 02/09/18 00:59 Last Admin: 12/13/17 12:42 Dose: 3 ml Amlodipine Besylate (Norvasc) 5 mg GT DAILY [facility] Stop: 02/09/18 08:59 Last Admin: 12/13/17 08:52 Dose: 5 mg Atorvastatin Calcium (Lipitor) 20 mg GT HS [facility] Stop: 02/09/18 20:59 Last Admin: 12/12/17 21:41 Dose: 20 mg Carvedilol (Coreg) 3.125 mg GT BID [facility] Stop: 02/09/18 08:59 Last Admin: 12/13/17 08:52 Dose: 3.125 mg [place] Oil/[place] Balsam/Trypsin (Venelex) 1 appl TP DAILY [facility] Stop: 02/09/18 08:59 Last Admin: 12/13/17 08:55 Dose: 1 appl Diltiazem HCl (Cardizem) 20 mg IVP Q4HR PRN PRN Reason: HR above 110 Stop: 02/08/18 23:09 Last Admin: 12/12/17 23:15 Dose: 20 mg Fluconazole (Diflucan) 100 mg PO DAILY [facility] Stop: 02/09/18 08:59 Last Admin: 12/13/17 08:51 Dose: 100 mg Folic Acid (Folate) 1 mg GT DAILY [facility] Stop: 02/10/18 08:59 Last Admin: 12/13/17 08:52 Dose: 1 mg Glucagon (Glucagen) 1 mg IM PRN PRN PRN Reason: BS BELOW 60 & NOT TOLERATE PO Stop: 02/08/18 23:14 Piperacillin Sod/Tazobactam (Sod 3.375 gm/ Sodium Chloride) 50 mls @ 100 mls/ hr IV Q6HR RYAN Stop: 02/09/18 00:00 Last Admin: 12/13/17 12:49 Dose: 100 mls/hr Dextrose (D5w) 1,000 mls @ 50 mls/hr IV .Q20H RYAN Stop: 02/10/18 08:25 Last Admin: 12/13/17 08:53 Dose: 50 mls/hr Insulin Aspart (Novolog Insulin Sliding Scale) 0 units SUBQ Q6HR RYAN PRN Reason: Protocol Stop: 02/09/18 00:00 Last Admin: 12/13/17 12:49 Dose: 2 units Insulin Detemir (Levemir Insulin) 14 units SUBQ BID RYAN PRN Reason: Protocol Stop: 02/09/18 08:59 Last Admin: 12/13/17 08:54 Dose: 14 units Miscellaneous (Probiotic Screen) 1 ea MC PRN PRN PRN Reason: PROTOCOL Stop: 02/10/18 17:05 Morphine Sulfate (Morphine) 1 mg IVP Q4HR PRN PRN Reason: Pain (Severe) Stop: 02/10/18 23:46 Last Admin: 12/13/17 01:43 Dose: 1 mg Neomycin/Polymyxin/Bacitracin (Triple Antibiotic Pkt) 1 pkt TP DAILY RYAN Stop: 02/09/18 08:59 Last Admin: 12/13/17 08:52 Dose: 1 pkt Pantoprazole Sodium (Protonix) 40 mg IVP BID [facility] Stop: 02/09/18 08:59 Last Admin: 12/13/17 08:53 Dose: 40 mg Lab - Result Diagrams 12/13/17 07:45 12/13/17 07:45 Na & BUN gradually improving Has mild upper ext edema request scrotal US On H20 flushes, D5W @ 50 ml/hr f/u electrolytes CXR no change
[2017-12-13] MEDS: Albumin 25% 12.5gm/50mL 12.5 GM/50 ML BTL IV SCH ×2 (17:01→22:05)
[2017-12-13] MEDS: Atorvastatin Calcium 10 MG TAB GT SCH (21:40)
--- NOTE | 2017-12-14 | Internal Medicine Prog Note ---
Internal Medicine Subjective - Subjective Service Date: 12/13/17 Patient seen and examined:: with staff Patient is:: non-verbal, in bed, confused Per staff patient has:: no adverse event Internal Medicine Objective - Results Result Diagrams: 12/13/17 07:45 12/13/17 07:45 Recent Labs: Laboratory Last Values WBC 5.2 Th/cmm (4.8-10.8) 12/13/17 07:45 Corrected WBC (auto) 4.4 Th/cmm 12/12/17 23:59 RBC 3.01 Mil/cmm (3.80-5.80) L 12/13/17 07:45 Hgb 9.8 gm/dL (12-16) L 12/13/17 07:45 Hct 29.2 % (41.0-60) L 12/13/17 07:45 MCV 97.2 fl (80-99) 12/13/17 07:45 MCH 32.6 pg (27.0-31.0) H 12/13/17 07:45 MCHC Differential 33.6 pg (28.0-36.0) 12/13/17 07:45 RDW 15.1 % (11.5-20.0) 12/13/17 07:45 Plt Count 105 Th/cmm (150-400) L 12/13/17 07:45 MPV 10.1 fl 12/13/17 07:45 Neutrophils % 75.4 % (40.0-80.0) 12/13/17 07:45 Band Neutrophils % 10 % (0-10) 12/12/17 23:59 Lymphocytes % 15.1 % (20.0-50.0) L 12/13/17 07:45 Monocytes % 4.5 % (2.0-10.0) 12/13/17 07:45 Eosinophils % 4.7 % (0.0-5.0) 12/13/17 07:45 Basophils % 0.3 % (0.0-2.0) 12/13/17 07:45 Neutrophils (Manual) 60 % (40-80) 12/12/17 23:59 Lymphocytes 20 % (20-50) 12/12/17 23:59 Monocytes 6 % (2-10) 12/12/17 23:59 Eosinophils 4 % (0-5) 12/12/17 23:59 Nucleated RBCs 6.0 % (0-0) H 12/12/17 23:59 Platelet Estimate SLIGHT DECREASED (NORMAL) 12/12/17 23:59 Platelet Morphology GIANT PLATELETS SEEN (NORMAL) 12/11/17 17:58 Polychromasia 1+ 12/11/17 17:58 Anisocytosis 1+ 12/11/17 17:58 RBC Morph Micro Appear ABNORMAL (NORMAL) 12/11/17 17:58 PT 12.6 SECONDS (9.5-11.5) H 12/11/17 05:30 INR 1.20 (0.5-1.4) 12/11/17 05:30 PTT (Actin FS) 24.5 SECONDS (26.0-38.0) L 12/11/17 05:30 Specimen Source Arterial 12/10/17 14:05 Sample Site Left Radial 12/10/17 14:05 pH 7.51 (7.35-7.45) H 12/10/17 14:05 pCO2 36.0 mmHg (35.0-45.0) 12/10/17 14:05 pO2 102.0 mmHg (80.0-100.0) H 12/10/17 14:05 HCO3 29.2 mEq/L (20.0-26.0) H 12/10/17 14:05 Base Excess 5.5 mEq/L (-3.0-3.0) H 12/10/17 14:05 O2 Saturation 98.0 % (92.0-100.0) 12/10/17 14:05 Mario Test YES 12/10/17 14:05 Vent Rate NA 12/10/17 14:05 Inspired O2 50 12/10/17 14:05 Tidal Volume NA 12/10/17 14:05 PEEP NA 12/10/17 14:05 Pressure (ins/psv/peep) NA 12/10/17 14:05 Critical Value E.PICHARDO 12/10/17 14:05 Sodium 158 mEq/L (136-145) H 12/13/17 07:45 Potassium 3.6 mEq/L (3.5-5.1) 12/13/17 07:45 Chloride 127 mEq/L (98-107) H 12/13/17 07:45 Carbon Dioxide 23.7 mEq/L (21.0-31.0) 12/13/17 07:45 Anion Gap 10.9 (7.0-16.0) 12/13/17 07:45 BUN 65 mg/dL (7-25) H 12/13/17 07:45 Creatinine 1.3 mg/dL (0.7-1.3) 12/13/17 07:45 Est GFR ( Amer) TNP 12/13/17 07:45 Est GFR (Non-Af Amer) TNP 12/13/17 07:45 BUN/Creatinine Ratio 50.0 12/13/17 07:45 Glucose 240 mg/dL (70-105) H 12/13/17 07:45 POC Glucose 179 MG/DL (70 - 105) H 12/13/17 17:09 Hemoglobin A1c % 6.4 % (4.0-6.0) H 12/11/17 05:30 Whole Bld Lactic Acid 1.12 mmol/L (0.60-1.99) 12/11/17 07:37 Calcium 7.4 mg/dL (8.6-10.3) L 12/13/17 07:45 Phosphorus 1.3 mg/dL (2.5-5.0) L 12/13/17 07:45 Magnesium 2.3 mg/dL (1.9-2.7) 12/13/17 07:45 Total Bilirubin 0.4 mg/dL (0.3-1.0) 12/13/17 07:45 AST 64 U/L (13-39) H 12/13/17 07:45 ALT 77 U/L (7-52) H 12/13/17 07:45 Alkaline Phosphatase 133 U/L (34-104) H 12/13/17 07:45 Troponin I 0.44 ng/mL (0.01-0.05) H* D 12/10/17 14:06 B-Natriuretic Peptide 532.0 pg/mL (5.0-100.0) H 12/10/17 14:06 Total Protein 4.5 gm/dL (6.0-8.3) L 12/13/17 07:45 Albumin 1.9 gm/dL (4.2-5.5) L 12/13/17 07:45 Globulin 2.6 gm/dL 12/13/17 07:45 Albumin/Globulin Ratio 0.7 (1.0-1.8) L 12/13/17 07:45 Urine Source [place] 12/11/17 05:20 Urine Color RED 12/11/17 05:20 Urine Clarity BLOODY (CLEAR) 12/11/17 05:20 Urine pH 6.0 (4.6 - 8.0) 12/11/17 05:20 Ur Specific [place] 1.015 (1.005-1.030) 12/11/17 05:20 Urine Protein 100 mg/dL (NEGATIVE) H 12/11/17 05:20 Urine Glucose (UA) NEGATIVE mg/dL (NEGATIVE) 12/11/17 05:20 Urine Ketones NEGATIVE mg/dL (NEGATIVE) 12/11/17 05:20 Urine Blood LARGE (NEGATIVE) H 12/11/17 05:20 Urine Nitrate NEGATIVE (NEGATIVE) 12/11/17 05:20 Urine Bilirubin NEGATIVE (NEGATIVE) 12/11/17 05:20 Urine Urobilinogen 0.2 E.U./dL (0.2 - 1.0) 12/11/17 05:20 Ur Leukocyte Esterase TRACE (NEGATIVE) H 12/11/17 05:20 Urine RBC >100 /hpf (0-5) H 12/11/17 05:20 Urine WBC 2-5 /hpf (0-5) H 12/11/17 05:20 Ur Epithelial Cells RARE /lpf (FEW) 12/11/17 05:20 Urine Bacteria FEW /hpf (NONE SEEN) 12/11/17 05:20 Stool Occult Blood POSITIVE (NEGATIVE) H 12/13/17 13:20 Blood Type A POSITIVE 12/10/17 14:32 Antibody Screen NEGATIVE 12/10/17 14:32 Crossmatch See Detail 12/10/17 14:32 - Physical Exam Vitals and I&O: Vital Signs Temp 97.7 F 12/13/17 20:00 Pulse 86 12/13/17 22:00 Resp 18 12/13/17 22:00 BP 142/78 12/13/17 22:00 Pulse Ox 100 12/13/17 22:00 Intake & Output 12/13/17 12/13/17 12/14/17 06:59 18:59 06:59 Intake Total 2750 1581.667 50 Output Total 1350 550 Balance 1400 1031.667 50 Weight (lbs) 68.039 kg 68.039 kg Intake: Intake, IV Amount 150 431.667 50 Albumin 25% 12.5gm/50mL 50 12.5 gm In 50 ml @ 50 mls /hr IV Q8HR [facility] Rx#: [id number] Dextrose 5% 1,000 ml @ 50 331.667 mls/hr IV .Q20H [facility] [place] Rx#: [id number] Piperacillin Sodium/ 150 100 Tazobact 3.375 gm In Sodium Chloride 0.9% 50 ml @ 100 mls/hr IV Q6HR [facility] [place] Rx#:[id number] Tube Feeding 1050 400 Other 1550 750 Output: Urine 1350 550 Other: # Bowel Movements 1 1 Stool Characteristics Soft Brown Active Medications: Current Medications Acetaminophen (Tylenol 650mg Supp) 650 mg RC Q4H PRN PRN Reason: Fever > 101 Stop: 02/08/18 23:09 Albuterol/Ipratropium (Duoneb Neb) 3 ml HHN Q6HRT [facility] [place] Stop: 02/09/18 00:59 Last Admin: 12/13/17 18:49 Dose: 3 ml Amlodipine Besylate (Norvasc) 5 mg GT DAILY [facility] [place] Stop: 02/09/18 08:59 Last Admin: 12/13/17 08:52 Dose: 5 mg Atorvastatin Calcium (Lipitor) 20 mg GT HS [facility] [place] Stop: 02/09/18 20:59 Last Admin: 12/13/17 21:40 Dose: 20 mg Carvedilol (Coreg) 3.125 mg GT BID [facility] [place] Stop: 02/09/18 08:59 Last Admin: 12/13/17 17:00 Dose: 3.125 mg [place] Oil/Iranian Balsam/Trypsin (Venelex) 1 appl TP DAILY [facility] [place] Stop: 02/09/18 08:59 Last Admin: 12/13/17 08:55 Dose: 1 appl Diltiazem HCl (Cardizem) 20 mg IVP Q4HR PRN PRN Reason: HR above 110 Stop: 02/08/18 23:09 Last Admin: 12/12/17 23:15 Dose: 20 mg Fluconazole (Diflucan) 100 mg PO DAILY [facility] [place] Stop: 02/09/18 08:59 Last Admin: 12/13/17 08:51 Dose: 100 mg Folic Acid (Folate) 1 mg GT DAILY [facility] [place] Stop: 02/10/18 08:59 Last Admin: 12/13/17 08:52 Dose: 1 mg Glucagon (Glucagen) 1 mg IM PRN PRN PRN Reason: BS BELOW 60 & NOT TOLERATE PO Stop: 02/08/18 23:14 Piperacillin Sod/Tazobactam (Sod 3.375 gm/ Sodium Chloride) 50 mls @ 100 mls/ hr IV Q6HR [facility] Stop: 02/09/18 00:00 Last Infusion: 12/13/17 17:30 Dose: Infused Dextrose (D5w) 1,000 mls @ 50 mls/hr IV .Q20H [facility] Stop: 02/10/18 08:25 Last Admin: 12/13/17 08:53 Dose: 50 mls/hr Albumin Human (Albutein 25%) 12.5 gm in 50 mls @ 50 mls/hr IV Q8HR [facility] [place] Stop: 12/16/17 05:59 Last Infusion: 12/13/17 21:26 Dose: Infused Insulin Aspart (Novolog Insulin Sliding Scale) 0 units SUBQ Q6HR [facility] PRN Reason: Protocol Stop: 02/09/18 00:00 Last Admin: 12/13/17 17:11 Dose: Not Given Insulin Detemir (Levemir Insulin) 14 units SUBQ BID [facility] PRN Reason: Protocol Stop: 02/09/18 08:59 Last Admin: 12/13/17 17:10 Dose: 14 units Miscellaneous (Probiotic Screen) 1 ea MC PRN PRN PRN Reason: PROTOCOL Stop: 02/10/18 17:05 Morphine Sulfate (Morphine) 1 mg IVP Q4HR PRN PRN Reason: Pain (Severe) Stop: 02/10/18 23:46 Last Admin: 12/13/17 01:43 Dose: 1 mg Neomycin/Polymyxin/Bacitracin (Triple Antibiotic Pkt) 1 pkt TP DAILY [facility] Stop: 02/09/18 08:59 Last Admin: 12/13/17 08:52 Dose: 1 pkt Pantoprazole Sodium (Protonix) 40 mg IVP BID [facility] Stop: 02/09/18 08:59 Last Admin: 12/13/17 17:00 Dose: 40 mg General: weak, demented HEENT: NC/AT, PERRLA, EOMI, anicteric sclerae, throat clear Neck: Supple, No JVD, No thyromegaly, +2 carotid pulse wo bruit, No LAD, + JVD Lungs: CTAB Cardiovascular: RRR, Normal S1, Normal S2, without murmur Abdomen: non-tender, non-distended Extremities: clear Neurological: no change - Procedures Procedures: Procedures Procedure Code Date BLOOD TRANSFUSION SERVICE 01040 12/10/17 EXCISION OF STOMACH, ENDO, DIAGN [id number] 11/15/17 INSERT TUNNELED CV CATH 43021 11/15/17 INSERTION OF FEEDING DEVICE INTO STOMACH, ENDO [id number] 11/15/17 INSERTION OF INFUSION DEV INTO R SUBCLAV VEIN, PERC APPROACH [id number] 11/15/17 PERFORMANCE OF URINARY FILTRATION, <6 HRS/DAY [id number] 11/15/17 REMOVAL OF INFUSION DEVICE FROM UPPER VEIN, PERC APPROACH [id number] 11/15/17 TRANSFUSE NONAUT RED BLOOD CELLS IN PERIPH VEIN, PERC 74120U5 12/10/17 ULTRASONOGRAPHY OF RIGHT SUBCLAVIAN VEIN, GUIDANCE [id number] 11/15/17 Internal Medicine Assmt/Plan - Assessment Assessment: 1.ASPIRATION PNEUMONIA. 2.SEPSIS. 3.ANEMIA. 4.DEHYDRATION - Plan Plan: CONTINUE ON CURRENT MEDICATION AND DIET. Nutritional Asmnt/Malnutr-PDOC - Dietary Evaluation Malnutrition Findings (Please click <Entered> for more info): Nutritional Asmnt/Malnutrition Start: 12/13/17 16: 00 Text: Status: Complete Freq: Document 12/13/17 16:[address] [facility] (Rec: 12/13/17 16:[address] [facility] [email or web address]) Nutritional Asmnt/Malnutrition Patient General Information Nutritional Screening High Risk Consult Diagnosis sepsis, PNA, rsepiratory failure, PENNY Pertinent Medical Hx/Surgical Hx DM, HTN, dementia, psychotic dysphagia Subjective Information Pt seen resting in bed at time of visit. TF was off at this time. Spoke with RN, RN reported pt tolerated TF well. Current Diet Order/ Nutrition Support novosource 50ml x 20hr, providing 2000kcal, 91g protein Pertinent Medications D5w, folate, glucagen, novolog , levemir, triple antibiotic pkt, protonix, piperacillin Pertinent Labs 2/5 Na 158, K 3.6, Cl 127, BUN 65, Cr 1.3, Glucose 240, POC 170-249 Nutritional Hx/Data Height 1.85 m Height (Calculated Centimeters) 185.4 Current Weight (lbs) 68.039 kg Weight (Calculated Kilograms) 68.0 Weight (Calculated Grams) 52549.9 [place] Body Weight 184 % [place] Body Weight 82 Body Mass Index (BMI) 19.8 Weight Status Approriate GI Symptoms GI Symptoms None Last BM 2/5 Difficult in: None Skin Integrity/Comment: decubitus ulceration to right buttocks, bruise to RUE, maceration to scrotum Estimated Nutritional Goals BEE in Kcals: Using Current wt Calories/Kcals/Kg 27-32 Kcals Calculated 8863-5100 Protein: Using Current wt Protein g/k.2-1.4 monitor renal labs Protein Calculated 81-95 Fluid: ml 1836-2176ml (1ml/kcal) Nutritional Problem 1. Problem Problem altered nutrition related lab values Etiology dx of PENNY, hx of DM Signs/Symptoms: Na 158, BUN 65, Glucose 240, POC 170-249 Malnutrition Alert Protein-Calorie Malnutrition N/A Is there a minimum of two criteria No selected? Query Text:Check all the applicable criteria. A minimum of two criteria are recommended for diagnosis of either severe or non-severe malnutrition. Intervention/Recommendation Comments 1. Continue with current TF regimen. It provides 2000kcal, 91g protein, meeting 100% of nutritional needs 2. Monitor TF rate, tolerance, wt weekly, skin integrity and labs 3. F/U as moderate risk in 3-5 days, 12/16-12/18 Expected Outcomes/Goals Expected Outcomes/Goals 1. Pt to meet at least 75% of nutritional needs via nutrition support with tolerance 2. Wt stability, skin to remain intact, labs to approach WNL.
[2017-12-14] MEDS: Dextrose 5% 1,000 ML IV SCH ×2 (00:11→20:53)
[2017-12-14] MEDS: INSULIN ASPART SLIDING SCALE 100 UNITS/ML UNIT SUBQ SCH ×4 (00:24→18:00)
[2017-12-14] MEDS: Albuterol/Ipratropium Neb 3 ML AERS HHN SCH ×4 (00:58→19:01)
[2017-12-14] MEDS: Albumin 25% 12.5gm/50mL 12.5 GM/50 ML BTL IV SCH ×3 (04:58→21:45)
[2017-12-14 06:09] LABS: FERRITIN 513 ng/mL (30-400); FOLIC ACID >20.0 ng/mL (>3.0); IRON LC 26 ug/dL (38-169); TIBC (LC) 161 ug/dL (250-450); UIBC 135 ug/dL (111-343)
[2017-12-14 06:50] LABS: % EOSINOPHILS 3.3 % (0.0-5.0); % LYMPHOCYTES 17.1 % (20.0-50.0); % MONOCYTES 3.8 % (2.0-10.0); % NEUTROPHILS 75.8 % (40.0-80.0); EOSINOPHILE ABSOLUTE 0.2 Th/cmm (0.1-0.4); HEMATOCRIT 27.5 % (41.0-60); HEMOGLOBIN 8.9 gm/dL (12-16); MEAN CELL VOLUME 95.2 fl (80-99); MEAN CORPUSCULAR HEMOGLOBIN 30.9 pg (27.0-31.0); MEAN CORPUSCULAR HGB CONC 32.4 pg (28.0-36.0); MEAN PLATELET VOLUME 10.2 fl; MONOCYTE ABSOLUTE 0.2 Th/cmm (0.3-1.0); NEUTROPHILE ABSOLUTE 4.5 Th/cmm (1.8-8.0); PLATELET COUNT 121 Th/cmm (150-400); RED BLOOD COUNT 2.89 Mil/cmm (3.80-5.80); RED CELL DISTRIBUTION WIDTH 15.3 % (11.5-20.0); WHITE BLOOD COUNT 5.9 Th/cmm (4.8-10.8)
[2017-12-14 07:17] LABS: ANION GAP 9.3 (7.0-16.0); BUN - UREA NITROGEN 54 mg/dL (7-25); CALCIUM SERUM 7.7 mg/dL (8.6-10.3); CHLORIDE 125 mEq/L (98-107); CREATININE - SERUM 1.1 mg/dL (0.7-1.3); POTASSIUM SERUM 3.3 mEq/L (3.5-5.1); SODIUM SERUM 156 mEq/L (136-145)
[2017-12-14 07:23] LABS: GLUCOSE 124 mg/dL (70-105)
[2017-12-14] MEDS ORDERED: Sodium Phos / Potassium Phos 1.25 GM PACK PO SCH ×2 (09:00)
[2017-12-14] MEDS: Triple Antibiotic 0.94 gm Pkt TP SCH ×2 (09:00→10:01)
[2017-12-14] MEDS: Venelex 60gm Tube TP SCH (09:42)
--- NOTE | 2017-12-14 09:58 | Diagnostic Imaging Report ---
Ultrasound scrotum HISTORY: Palpable abnormality of the bilateral testicles COMPARISON: None Technique/procedure: Sonography of the scrotum and contents was performed in multiple planes. FINDINGS: The right testicle measures 3.1 x 1.8 x 2.1 cm demonstrates increased echogenicity. 2 mm calcification right testicle is noted. The right epididymal head is prominent measuring 1.2 x 1.6 cm a cyst measuring 5 mm. The left testicle demonstrates a heterogeneous echotexture. No discrete focal lesions identified. The left epididymal head measures 1.0 x 1.0 cm demonstrating a 5 mm epididymal head cyst. There is a large right hydrocele and a moderate left hydrocele with debris noted. Vascular flow to both testicles are noted. IMPRESSION: Large right and moderate left hydrocele with internal echoes which may be due to debris. Infectious or inflammatory processes cannot be excluded. Increased echogenicity of the right testicle and heterogeneous echogenicity of the left testicle. Findings may have been sequela infectious or inflammatory process. Please correlate with clinical findings. Bilateral epididymal head cysts.
[2017-12-14] MEDS: Insulin Detemir 100 units/mL 10mL Vial SUBQ SCH ×2 (10:00→18:34)
--- NOTE | 2017-12-14 11:30 | Diagnostic Imaging Report ---
Right upper extremity extremity DVT study HISTORY: Pain COMPARISON: None Technique: Longitudinal and transverse sonographic images of the right upper extremity veins were obtained with doppler analysis. FINDINGS: There is patency of the right jugular, subclavian, axial, brachial, basilic, cephalic veins. Compressibility and augmentation is demonstrated without evidence of DVT formation. 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 IMPRESSION: No evidence of DVT within the right upper extremity venous system. Atherosclerotic vascular disease.
--- NOTE | 2017-12-14 14:36 | General Progress Note ---
Subjective - Review of Systems Service Date: 12/14/17 Subjective: sleeping, comfortable Objective - Results Result Diagrams: 12/14/17 05:50 12/14/17 05:50 Recent Labs: Laboratory Last Values WBC 5.9 Th/cmm (4.8-10.8) 12/14/17 05:50 Corrected WBC (auto) 4.4 Th/cmm 12/12/17 23:59 RBC 2.89 Mil/cmm (3.80-5.80) L 12/14/17 05:50 Hgb 8.9 gm/dL (12-16) L 12/14/17 05:50 Hct 27.5 % (41.0-60) L 12/14/17 05:50 MCV 95.2 fl (80-99) 12/14/17 05:50 MCH 30.9 pg (27.0-31.0) 12/14/17 05:50 MCHC Differential 32.4 pg (28.0-36.0) 12/14/17 05:50 RDW 15.3 % (11.5-20.0) 12/14/17 05:50 Plt Count 121 Th/cmm (150-400) L 12/14/17 05:50 MPV 10.2 fl 12/14/17 05:50 Neutrophils % 75.8 % (40.0-80.0) 12/14/17 05:50 Band Neutrophils % 10 % (0-10) 12/12/17 23:59 Lymphocytes % 17.1 % (20.0-50.0) L 12/14/17 05:50 Monocytes % 3.8 % (2.0-10.0) 12/14/17 05:50 Eosinophils % 3.3 % (0.0-5.0) 12/14/17 05:50 Basophils % 0.0 % (0.0-2.0) 12/14/17 05:50 Neutrophils (Manual) 60 % (40-80) 12/12/17 23:59 Lymphocytes 20 % (20-50) 12/12/17 23:59 Monocytes 6 % (2-10) 12/12/17 23:59 Eosinophils 4 % (0-5) 12/12/17 23:59 Nucleated RBCs 6.0 % (0-0) H 12/12/17 23:59 Platelet Estimate SLIGHT DECREASED (NORMAL) 12/12/17 23:59 Platelet Morphology GIANT PLATELETS SEEN (NORMAL) 12/11/17 17:58 Polychromasia 1+ 12/11/17 17:58 Anisocytosis 1+ 12/11/17 17:58 RBC Morph Micro Appear ABNORMAL (NORMAL) 12/11/17 17:58 PT 12.6 SECONDS (9.5-11.5) H 12/11/17 05:30 INR 1.20 (0.5-1.4) 12/11/17 05:30 PTT (Actin FS) 24.5 SECONDS (26.0-38.0) L 12/11/17 05:30 Specimen Source Arterial 12/10/17 14:05 Sample Site Left Radial 12/10/17 14:05 pH 7.51 (7.35-7.45) H 12/10/17 14:05 pCO2 36.0 mmHg (35.0-45.0) 12/10/17 14:05 pO2 102.0 mmHg (80.0-100.0) H 12/10/17 14:05 HCO3 29.2 mEq/L (20.0-26.0) H 12/10/17 14:05 Base Excess 5.5 mEq/L (-3.0-3.0) H 12/10/17 14:05 O2 Saturation 98.0 % (92.0-100.0) 12/10/17 14:05 Mario Test YES 12/10/17 14:05 Vent Rate NA 12/10/17 14:05 Inspired O2 50 12/10/17 14:05 Tidal Volume NA 12/10/17 14:05 PEEP NA 12/10/17 14:05 Pressure (ins/psv/peep) NA 12/10/17 14:05 Critical Value E.PICHARDO 12/10/17 14:05 Sodium 156 mEq/L (136-145) H 12/14/17 05:50 Potassium 3.3 mEq/L (3.5-5.1) L 12/14/17 05:50 Chloride 125 mEq/L (98-107) H 12/14/17 05:50 Carbon Dioxide 25.0 mEq/L (21.0-31.0) 12/14/17 05:50 Anion Gap 9.3 (7.0-16.0) 12/14/17 05:50 BUN 54 mg/dL (7-25) H 12/14/17 05:50 Creatinine 1.1 mg/dL (0.7-1.3) 12/14/17 05:50 Est GFR ( Amer) TNP 12/14/17 05:50 Est GFR (Non-Af Amer) TNP 12/14/17 05:50 BUN/Creatinine Ratio 49.1 12/14/17 05:50 Glucose 124 mg/dL (70-105) H D 12/14/17 05:50 POC Glucose 162 MG/DL (70 - 105) H 12/14/17 10:00 Hemoglobin A1c % 6.4 % (4.0-6.0) H 12/11/17 05:30 Whole Bld Lactic Acid 1.12 mmol/L (0.60-1.99) 12/11/17 07:37 Calcium 7.7 mg/dL (8.6-10.3) L 12/14/17 05:50 Phosphorus 1.3 mg/dL (2.5-5.0) L 12/13/17 07:45 Magnesium 2.3 mg/dL (1.9-2.7) 12/13/17 07:45 Iron 26 ug/dL (38-169) L 12/11/17 05:30 TIBC 161 ug/dL (250-450) L 12/11/17 05:30 Iron Saturation 16 % (15-55) 12/11/17 05:30 Unsaturated IBC 135 ug/dL (111-343) 12/11/17 05:30 Ferritin 513 ng/mL (30-400) H 12/11/17 05:30 Total Bilirubin 0.4 mg/dL (0.3-1.0) 12/13/17 07:45 AST 64 U/L (13-39) H 12/13/17 07:45 ALT 77 U/L (7-52) H 12/13/17 07:45 Alkaline Phosphatase 133 U/L (34-104) H 12/13/17 07:45 Troponin I 0.44 ng/mL (0.01-0.05) H* D 12/10/17 14:06 B-Natriuretic Peptide 532.0 pg/mL (5.0-100.0) H 12/10/17 14:06 Total Protein 4.5 gm/dL (6.0-8.3) L 12/13/17 07:45 Albumin 1.9 gm/dL (4.2-5.5) L 12/13/17 07:45 Globulin 2.6 gm/dL 12/13/17 07:45 Albumin/Globulin Ratio 0.7 (1.0-1.8) L 12/13/17 07:45 Vitamin B12 1620 pg/mL (232-1245) H 12/11/17 05:30 Folic Acid >20.0 ng/mL (>3.0) 12/11/17 05:30 Urine Source [place] 12/11/17 05:20 Urine Color RED 12/11/17 05:20 Urine Clarity BLOODY (CLEAR) 12/11/17 05:20 Urine pH 6.0 (4.6 - 8.0) 12/11/17 05:20 Ur Specific [place] 1.015 (1.005-1.030) 12/11/17 05:20 Urine Protein 100 mg/dL (NEGATIVE) H 12/11/17 05:20 Urine Glucose (UA) NEGATIVE mg/dL (NEGATIVE) 12/11/17 05:20 Urine Ketones NEGATIVE mg/dL (NEGATIVE) 12/11/17 05:20 Urine Blood LARGE (NEGATIVE) H 12/11/17 05:20 Urine Nitrate NEGATIVE (NEGATIVE) 12/11/17 05:20 Urine Bilirubin NEGATIVE (NEGATIVE) 12/11/17 05:20 Urine Urobilinogen 0.2 E.U./dL (0.2 - 1.0) 12/11/17 05:20 Ur Leukocyte Esterase TRACE (NEGATIVE) H 12/11/17 05:20 Urine RBC >100 /hpf (0-5) H 12/11/17 05:20 Urine WBC 2-5 /hpf (0-5) H 12/11/17 05:20 Ur Epithelial Cells RARE /lpf (FEW) 12/11/17 05:20 Urine Bacteria FEW /hpf (NONE SEEN) 12/11/17 05:20 Stool Occult Blood POSITIVE (NEGATIVE) H 12/13/17 13:20 Blood Type A POSITIVE 12/10/17 14:32 Antibody Screen NEGATIVE 12/10/17 14:32 Crossmatch See Detail 12/10/17 14:32 - Physical Exam Vitals and I&O: Vital Signs Temp 98.0 F 12/14/17 08:00 Pulse 88 12/14/17 13:26 Resp 18 12/14/17 13:26 BP 152/77 12/14/17 13:00 Pulse Ox 100 12/14/17 13:26 Intake & Output 12/13/17 12/14/17 12/14/17 18:59 06:59 18:59 Intake Total 1581.667 965 100 Output Total 550 200 Balance 1031.667 965 -100 Weight (lbs) 68.039 kg 73.573 kg Intake: Intake, IV Amount 431.667 965 Albumin 25% 12.5gm/50mL 100 12.5 gm In 50 ml @ 50 mls /hr IV Q8HR [facility] Rx#: [id number] Dextrose 5% 1,000 ml @ 50 331.667 765 mls/hr IV .Q20H [facility] Rx#: [id number] Piperacillin Sodium/ 100 100 Tazobact 3.375 gm In Sodium Chloride 0.9% 50 ml @ 100 mls/hr IV Q6HR [facility] Rx#:[id number] Tube Feeding 400 100 Other 750 Output: Urine 550 200 Other: # Bowel Movements 1 Stool Characteristics Soft Brown Active Medications: Current Medications Acetaminophen (Tylenol 650mg Supp) 650 mg RC Q4H PRN PRN Reason: Fever > 101 Stop: 02/08/18 23:09 Albuterol/Ipratropium (Duoneb Neb) 3 ml HHN Q6HRT [facility] Stop: 02/09/18 00:59 Last Admin: 12/14/17 13:26 Dose: 3 ml Amlodipine Besylate (Norvasc) 5 mg GT DAILY [facility] Stop: 02/09/18 08:59 Last Admin: 12/14/17 09:42 Dose: 5 mg Atorvastatin Calcium (Lipitor) 20 mg GT HS [facility] Stop: 02/09/18 20:59 Last Admin: 12/13/17 21:40 Dose: 20 mg Carvedilol (Coreg) 3.125 mg GT BID [facility] Stop: 02/09/18 08:59 Last Admin: 12/14/17 09:40 Dose: 3.125 mg [place] Oil/Gambian Balsam/Trypsin (Venelex) 1 appl TP DAILY [facility] Stop: 02/09/18 08:59 Last Admin: 12/14/17 09:42 Dose: 1 appl Diltiazem HCl (Cardizem) 20 mg IVP Q4HR PRN PRN Reason: HR above 110 Stop: 02/08/18 23:09 Last Admin: 12/12/17 23:15 Dose: 20 mg Fluconazole (Diflucan) 100 mg PO DAILY [facility] Stop: 02/09/18 08:59 Last Admin: 12/14/17 09:40 Dose: 100 mg Folic Acid (Folate) 1 mg GT DAILY [facility] Stop: 02/10/18 08:59 Last Admin: 12/14/17 09:40 Dose: 1 mg Glucagon (Glucagen) 1 mg IM PRN PRN PRN Reason: BS BELOW 60 & NOT TOLERATE PO Stop: 02/08/18 23:14 Piperacillin Sod/Tazobactam (Sod 3.375 gm/ Sodium Chloride) 50 mls @ 100 mls/ hr IV Q6HR [facility] Stop: 02/09/18 00:00 Last Admin: 12/14/17 12:09 Dose: 100 mls/hr Dextrose (D5w) 1,000 mls @ 50 mls/hr IV .Q20H [facility] Stop: 02/10/18 08:25 Last Infusion: 12/14/17 00:11 Dose: 50 mls/hr Albumin Human (Albutein 25%) 12.5 gm in 50 mls @ 50 mls/hr IV Q8HR [facility] Stop: 12/16/17 05:59 Last Admin: 12/14/17 04:58 Dose: 50 mls/hr Insulin Aspart (Novolog Insulin Sliding Scale) 0 units SUBQ Q6HR [facility] PRN Reason: Protocol Stop: 02/09/18 00:00 Last Admin: 12/14/17 12:16 Dose: Not Given Insulin Detemir (Levemir Insulin) 14 units SUBQ BID [facility] PRN Reason: Protocol Stop: 02/09/18 08:59 Last Admin: 12/14/17 10:00 Dose: 14 units Miscellaneous (Probiotic Screen) 1 ea MC PRN PRN PRN Reason: PROTOCOL Stop: 02/10/18 17:05 Morphine Sulfate (Morphine) 1 mg IVP Q4HR PRN PRN Reason: Pain (Severe) Stop: 02/10/18 23:46 Last Admin: 12/13/17 01:43 Dose: 1 mg Neomycin/Polymyxin/Bacitracin (Triple Antibiotic Pkt) 1 pkt TP DAILY [facility] Stop: 02/09/18 08:59 Last Admin: 12/14/17 10:01 Dose: 1 pkt Pantoprazole Sodium (Protonix) 40 mg IVP BID [facility] Stop: 02/09/18 08:59 Last Admin: 12/14/17 09:40 Dose: 40 mg Potassium Phosphate (K Phos) 1,000 mg PO BID [facility] Stop: 02/12/18 12:29 Last Admin: 12/14/17 12:59 Dose: 1,000 mg General: No acute distress HEENT: PERRLA, EOMI Neck: Supple, +2 carotid pulse wo bruit Cardiovascular: Regular rate, Normal S1, Normal S2 Lungs: Other (decreased BS) Abdomen: Bowel sounds, Soft Extremities: Other (upper ext), no Edema Neurological: Sensation intact Skin: no Rash Psych/Mental Status: Mood NL - Procedures Procedures: Procedures Procedure Code Date BLOOD TRANSFUSION SERVICE 78927 12/10/17 EXCISION OF STOMACH, ENDO, DIAGN [id number] 11/15/17 INSERT TUNNELED CV CATH 10055 11/15/17 INSERTION OF FEEDING DEVICE INTO STOMACH, ENDO [id number] 11/15/17 INSERTION OF INFUSION DEV INTO R SUBCLAV VEIN, PERC APPROACH [id number] 11/15/17 PERFORMANCE OF URINARY FILTRATION, <6 HRS/DAY [id number] 11/15/17 REMOVAL OF INFUSION DEVICE FROM UPPER VEIN, PERC APPROACH [id number] 11/15/17 TRANSFUSE NONAUT RED BLOOD CELLS IN PERIPH VEIN, PERC 34164N3 12/10/17 ULTRASONOGRAPHY OF RIGHT SUBCLAVIAN VEIN, GUIDANCE [id number] 11/15/17 Assessment/Plan - Problem List Patient Problems: All Active Problems SEVERE RESPIRATORY DISTRESS (Acute) - Assessment Assessment: PENNY Hypernatremia CVA Type 2 DM Ess Htn Thrombocytopenia Severe Anemia B/L Scrotal Hydrocele Left HAP - Plan Plan: Lab - Result Diagrams 12/13/17 07:45 12/13/17 07:45 Current Medications Acetaminophen (Tylenol 650mg Supp) 650 mg RC Q4H PRN PRN Reason: Fever > 101 Stop: 02/08/18 23:09 Albuterol/Ipratropium (Duoneb Neb) 3 ml HHN Q6HRT [facility] Stop: 02/09/18 00:59 Last Admin: 12/13/17 12:42 Dose: 3 ml Amlodipine Besylate (Norvasc) 5 mg GT DAILY [facility] Stop: 02/09/18 08:59 Last Admin: 12/13/17 08:52 Dose: 5 mg Atorvastatin Calcium (Lipitor) 20 mg GT HS [facility] Stop: 02/09/18 20:59 Last Admin: 12/12/17 21:41 Dose: 20 mg Carvedilol (Coreg) 3.125 mg GT BID [facility] Stop: 02/09/18 08:59 Last Admin: 12/13/17 08:52 Dose: 3.125 mg [place] Oil/[place]ambian Balsam/Trypsin (Venelex) 1 appl TP DAILY [facility] Stop: 02/09/18 08:59 Last Admin: 12/13/17 08:55 Dose: 1 appl Diltiazem HCl (Cardizem) 20 mg IVP Q4HR PRN PRN Reason: HR above 110 Stop: 02/08/18 23:09 Last Admin: 12/12/17 23:15 Dose: 20 mg Fluconazole (Diflucan) 100 mg PO DAILY [facility] Stop: 02/09/18 08:59 Last Admin: 12/13/17 08:51 Dose: 100 mg Folic Acid (Folate) 1 mg GT DAILY [facility] Stop: 02/10/18 08:59 Last Admin: 12/13/17 08:52 Dose: 1 mg Glucagon (Glucagen) 1 mg IM PRN PRN PRN Reason: BS BELOW 60 & NOT TOLERATE PO Stop: 02/08/18 23:14 Piperacillin Sod/Tazobactam (Sod 3.375 gm/ Sodium Chloride) 50 mls @ 100 mls/ hr IV Q6HR [facility] Stop: 02/09/18 00:00 Last Admin: 12/13/17 12:49 Dose: 100 mls/hr Dextrose (D5w) 1,000 mls @ 50 mls/hr IV .Q20H [facility] Stop: 02/10/18 08:25 Last Admin: 12/13/17 08:53 Dose: 50 mls/hr Insulin Aspart (Novolog Insulin Sliding Scale) 0 units SUBQ Q6HR [facility] PRN Reason: Protocol Stop: 02/09/18 00:00 Last Admin: 12/13/17 12:49 Dose: 2 units Insulin Detemir (Levemir Insulin) 14 units SUBQ BID [facility] PRN Reason: Protocol Stop: 02/09/18 08:59 Last Admin: 12/13/17 08:54 Dose: 14 units Miscellaneous (Probiotic Screen) 1 ea MC PRN PRN PRN Reason: PROTOCOL Stop: 02/10/18 17:05 Morphine Sulfate (Morphine) 1 mg IVP Q4HR PRN PRN Reason: Pain (Severe) Stop: 02/10/18 23:46 Last Admin: 12/13/17 01:43 Dose: 1 mg Neomycin/Polymyxin/Bacitracin (Triple Antibiotic Pkt) 1 pkt TP DAILY [facility] Stop: 02/09/18 08:59 Last Admin: 12/13/17 08:52 Dose: 1 pkt Pantoprazole Sodium (Protonix) 40 mg IVP BID [facility] Stop: 02/09/18 08:59 Last Admin: 12/13/17 08:53 Dose: 40 mg Lab - Result Diagrams 12/14/17 05:50 12/14/17 05:50 Na & BUN gradually improving Has mild upper ext edema request scrotal US B/L Hydrocele On H20 flushes, D5W @ 50 ml/hr Duplex scan no RUE DVT CXR left consolidation Nutritional Asmnt/Malnutr-PDOC - Dietary Evaluation Malnutrition Findings (Please click <Entered> for more info): Nutritional Asmnt/Malnutrition Start: 12/13/17 16: 00 Text: Status: Complete Freq: Document 12/13/17 16:00 COSMO (Rec: 12/13/17 16:22 [email or web address] [email or web address]) Nutritional Asmnt/Malnutrition Patient General Information Nutritional Screening High Risk Consult Diagnosis sepsis, PNA, rsepiratory failure, PENNY Pertinent Medical Hx/Surgical Hx DM, HTN, dementia, psychotic dysphagia Subjective Information Pt seen resting in bed at time of visit. TF was off at this time. Spoke with RN, RN reported pt tolerated TF well. Current Diet Order/ Nutrition Support novosource 50ml x 20hr, providing 2000kcal, 91g protein Pertinent Medications D5w, folate, glucagen, novolog , levemir, triple antibiotic pkt, protonix, piperacillin Pertinent Labs 2/5 Na 158, K 3.6, Cl 127, BUN 65, Cr 1.3, Glucose 240, POC 170-249 Nutritional Hx/Data Height 1.85 m Height (Calculated Centimeters) 185.4 Current Weight (lbs) 68.039 kg Weight (Calculated Kilograms) 68.0 Weight (Calculated Grams) 28410.9 [place] Body Weight 184 % [place] Body Weight 82 Body Mass Index (BMI) 19.8 Weight Status Approriate GI Symptoms GI Symptoms None Last BM 2/5 Difficult in: None Skin Integrity/Comment: decubitus ulceration to right buttocks, bruise to RUE, maceration to scrotum Estimated Nutritional Goals BEE in Kcals: Using Current wt Calories/Kcals/Kg 27-32 Kcals Calculated 9358-2509 Protein: Using Current wt Protein g/k.2-1.4 monitor renal labs Protein Calculated 81-95 Fluid: ml 1836-2176ml (1ml/kcal) Nutritional Problem 1. Problem Problem altered nutrition related lab values Etiology dx of PENNY, hx of DM Signs/Symptoms: Na 158, BUN 65, Glucose 240, POC 170-249 Malnutrition Alert Protein-Calorie Malnutrition N/A Is there a minimum of two criteria No selected? Query Text:Check all the applicable criteria. A minimum of two criteria are recommended for diagnosis of either severe or non-severe malnutrition. Intervention/Recommendation Comments 1. Continue with current TF regimen. It provides 2000kcal, 91g protein, meeting 100% of nutritional needs 2. Monitor TF rate, tolerance, wt weekly, skin integrity and labs 3. F/U as moderate risk in 3-5 days, 12/16-12/18 Expected Outcomes/Goals Expected Outcomes/Goals 1. Pt to meet at least 75% of nutritional needs via nutrition support with tolerance 2. Wt stability, skin to remain intact, labs to approach WNL.
[2017-12-14] MEDS: Morphine Sulfate 2 mg/mL 1mL Syr IVP PRN (18:10)
--- NOTE | 2017-12-14 20:06 | Internal Medicine Prog Note ---
Internal Medicine Subjective - Subjective Service Date: 12/14/17 Patient seen and examined:: with staff (HE STILL HAS HEMATURIA.HE HAD FEW SECOND VT) Patient is:: non-verbal, in bed, confused Per staff patient has:: no adverse event Internal Medicine Objective - Results Result Diagrams: 12/14/17 05:50 12/14/17 05:50 Recent Labs: Laboratory Last Values WBC 5.9 Th/cmm (4.8-10.8) 12/14/17 05:50 Corrected WBC (auto) 4.4 Th/cmm 12/12/17 23:59 RBC 2.89 Mil/cmm (3.80-5.80) L 12/14/17 05:50 Hgb 8.9 gm/dL (12-16) L 12/14/17 05:50 Hct 27.5 % (41.0-60) L 12/14/17 05:50 MCV 95.2 fl (80-99) 12/14/17 05:50 MCH 30.9 pg (27.0-31.0) 12/14/17 05:50 MCHC Differential 32.4 pg (28.0-36.0) 12/14/17 05:50 RDW 15.3 % (11.5-20.0) 12/14/17 05:50 Plt Count 121 Th/cmm (150-400) L 12/14/17 05:50 MPV 10.2 fl 12/14/17 05:50 Neutrophils % 75.8 % (40.0-80.0) 12/14/17 05:50 Band Neutrophils % 10 % (0-10) 12/12/17 23:59 Lymphocytes % 17.1 % (20.0-50.0) L 12/14/17 05:50 Monocytes % 3.8 % (2.0-10.0) 12/14/17 05:50 Eosinophils % 3.3 % (0.0-5.0) 12/14/17 05:50 Basophils % 0.0 % (0.0-2.0) 12/14/17 05:50 Neutrophils (Manual) 60 % (40-80) 12/12/17 23:59 Lymphocytes 20 % (20-50) 12/12/17 23:59 Monocytes 6 % (2-10) 12/12/17 23:59 Eosinophils 4 % (0-5) 12/12/17 23:59 Nucleated RBCs 6.0 % (0-0) H 12/12/17 23:59 Platelet Estimate SLIGHT DECREASED (NORMAL) 12/12/17 23:59 Platelet Morphology GIANT PLATELETS SEEN (NORMAL) 12/11/17 17:58 Polychromasia 1+ 12/11/17 17:58 Anisocytosis 1+ 12/11/17 17:58 RBC Morph Micro Appear ABNORMAL (NORMAL) 12/11/17 17:58 PT 12.6 SECONDS (9.5-11.5) H 12/11/17 05:30 INR 1.20 (0.5-1.4) 12/11/17 05:30 PTT (Actin FS) 24.5 SECONDS (26.0-38.0) L 12/11/17 05:30 Specimen Source Arterial 12/10/17 14:05 Sample Site Left Radial 12/10/17 14:05 pH 7.51 (7.35-7.45) H 12/10/17 14:05 pCO2 36.0 mmHg (35.0-45.0) 12/10/17 14:05 pO2 102.0 mmHg (80.0-100.0) H 12/10/17 14:05 HCO3 29.2 mEq/L (20.0-26.0) H 12/10/17 14:05 Base Excess 5.5 mEq/L (-3.0-3.0) H 12/10/17 14:05 O2 Saturation 98.0 % (92.0-100.0) 12/10/17 14:05 Mario Test YES 12/10/17 14:05 Vent Rate NA 12/10/17 14:05 Inspired O2 50 12/10/17 14:05 Tidal Volume NA 12/10/17 14:05 PEEP NA 12/10/17 14:05 Pressure (ins/psv/peep) NA 12/10/17 14:05 Critical Value E.PICHARDO 12/10/17 14:05 Sodium 156 mEq/L (136-145) H 12/14/17 05:50 Potassium 3.3 mEq/L (3.5-5.1) L 12/14/17 05:50 Chloride 125 mEq/L (98-107) H 12/14/17 05:50 Carbon Dioxide 25.0 mEq/L (21.0-31.0) 12/14/17 05:50 Anion Gap 9.3 (7.0-16.0) 12/14/17 05:50 BUN 54 mg/dL (7-25) H 12/14/17 05:50 Creatinine 1.1 mg/dL (0.7-1.3) 12/14/17 05:50 Est GFR ( Amer) TNP 12/14/17 05:50 Est GFR (Non-Af Amer) TNP 12/14/17 05:50 BUN/Creatinine Ratio 49.1 12/14/17 05:50 Glucose 124 mg/dL (70-105) H D 12/14/17 05:50 POC Glucose 162 MG/DL (70 - 105) H 12/14/17 10:00 Hemoglobin A1c % 6.4 % (4.0-6.0) H 12/11/17 05:30 Whole Bld Lactic Acid 1.12 mmol/L (0.60-1.99) 12/11/17 07:37 Calcium 7.7 mg/dL (8.6-10.3) L 12/14/17 05:50 Phosphorus 1.3 mg/dL (2.5-5.0) L 12/13/17 07:45 Magnesium 2.3 mg/dL (1.9-2.7) 12/13/17 07:45 Iron 26 ug/dL (38-169) L 12/11/17 05:30 TIBC 161 ug/dL (250-450) L 12/11/17 05:30 Iron Saturation 16 % (15-55) 12/11/17 05:30 Unsaturated IBC 135 ug/dL (111-343) 12/11/17 05:30 Ferritin 513 ng/mL (30-400) H 12/11/17 05:30 Total Bilirubin 0.4 mg/dL (0.3-1.0) 12/13/17 07:45 AST 64 U/L (13-39) H 12/13/17 07:45 ALT 77 U/L (7-52) H 12/13/17 07:45 Alkaline Phosphatase 133 U/L (34-104) H 12/13/17 07:45 Troponin I 0.44 ng/mL (0.01-0.05) H* D 12/10/17 14:06 B-Natriuretic Peptide 532.0 pg/mL (5.0-100.0) H 12/10/17 14:06 Total Protein 4.5 gm/dL (6.0-8.3) L 12/13/17 07:45 Albumin 1.9 gm/dL (4.2-5.5) L 12/13/17 07:45 Globulin 2.6 gm/dL 12/13/17 07:45 Albumin/Globulin Ratio 0.7 (1.0-1.8) L 12/13/17 07:45 Vitamin B12 1620 pg/mL (232-1245) H 12/11/17 05:30 Folic Acid >20.0 ng/mL (>3.0) 12/11/17 05:30 Urine Source [place] 12/11/17 05:20 Urine Color RED 12/11/17 05:20 Urine Clarity BLOODY (CLEAR) 12/11/17 05:20 Urine pH 6.0 (4.6 - 8.0) 12/11/17 05:20 Ur Specific [place] 1.015 (1.005-1.030) 12/11/17 05:20 Urine Protein 100 mg/dL (NEGATIVE) H 12/11/17 05:20 Urine Glucose (UA) NEGATIVE mg/dL (NEGATIVE) 12/11/17 05:20 Urine Ketones NEGATIVE mg/dL (NEGATIVE) 12/11/17 05:20 Urine Blood LARGE (NEGATIVE) H 12/11/17 05:20 Urine Nitrate NEGATIVE (NEGATIVE) 12/11/17 05:20 Urine Bilirubin NEGATIVE (NEGATIVE) 12/11/17 05:20 Urine Urobilinogen 0.2 E.U./dL (0.2 - 1.0) 12/11/17 05:20 Ur Leukocyte Esterase TRACE (NEGATIVE) H 12/11/17 05:20 Urine RBC >100 /hpf (0-5) H 12/11/17 05:20 Urine WBC 2-5 /hpf (0-5) H 12/11/17 05:20 Ur Epithelial Cells RARE /lpf (FEW) 12/11/17 05:20 Urine Bacteria FEW /hpf (NONE SEEN) 12/11/17 05:20 Stool Occult Blood POSITIVE (NEGATIVE) H 12/13/17 13:20 Blood Type A POSITIVE 12/10/17 14:32 Antibody Screen NEGATIVE 12/10/17 14:32 Crossmatch See Detail 12/10/17 14:32 - Physical Exam Vitals and I&O: Vital Signs Temp 98.7 F 12/14/17 16:00 Pulse 85 12/14/17 19:02 Resp 19 12/14/17 19:02 BP 128/73 12/14/17 18:00 Pulse Ox 100 12/14/17 19:02 Intake & Output 12/14/17 12/14/17 12/15/17 06:59 18:59 06:59 Intake Total 1015 500 Output Total 1000 Balance 1015 -500 Weight (lbs) 73.754 kg Intake: Intake, IV Amount 1015 50 Albumin 25% 12.5gm/50mL 150 12.5 gm In 50 ml @ 50 mls /hr IV Q8HR [facility] Rx#: [id number] Dextrose 5% 1,000 ml @ 50 765 mls/hr IV .Q20H [facility] Rx#: [id number] Piperacillin Sodium/ 100 50 Tazobact 3.375 gm In Sodium Chloride 0.9% 50 ml @ 100 mls/hr IV Q6HR [facility] Rx#:[id number] Oral 250 Tube Feeding 200 Output: Urine 1000 Other: # Bowel Movements 1 Stool Characteristics Soft Brown Green Active Medications: Current Medications Acetaminophen (Tylenol 650mg Supp) 650 mg RC Q4H PRN PRN Reason: Fever > 101 Stop: 02/08/18 23:09 Albuterol/Ipratropium (Duoneb Neb) 3 ml HHN Q6HRT [facility] Stop: 02/09/18 00:59 Last Admin: 12/14/17 19:01 Dose: 3 ml Amlodipine Besylate (Norvasc) 5 mg GT DAILY [facility] Stop: 02/09/18 08:59 Last Admin: 12/14/17 09:42 Dose: 5 mg Atorvastatin Calcium (Lipitor) 20 mg GT HS [facility] Stop: 02/09/18 20:59 Last Admin: 12/13/17 21:40 Dose: 20 mg Carvedilol (Coreg) 3.125 mg GT BID [facility] Stop: 02/09/18 08:59 Last Admin: 12/14/17 17:30 Dose: 3.125 mg [place] [employer]/[place] Balsam/Trypsin (Venelex) 1 appl TP DAILY [facility] Stop: 02/09/18 08:59 Last Admin: 12/14/17 09:42 Dose: 1 appl Diltiazem HCl (Cardizem) 20 mg IVP Q4HR PRN PRN Reason: HR above 110 Stop: 02/08/18 23:09 Last Admin: 12/12/17 23:15 Dose: 20 mg Fluconazole (Diflucan) 100 mg PO DAILY [facility] Stop: 02/09/18 08:59 Last Admin: 12/14/17 09:40 Dose: 100 mg Folic Acid (Folate) 1 mg GT DAILY [facility] Stop: 02/10/18 08:59 Last Admin: 12/14/17 09:40 Dose: 1 mg Glucagon (Glucagen) 1 mg IM PRN PRN PRN Reason: BS BELOW 60 & NOT TOLERATE PO Stop: 02/08/18 23:14 Piperacillin Sod/Tazobactam (Sod 3.375 gm/ Sodium Chloride) 50 mls @ 100 mls/ hr IV Q6HR [facility] Stop: 02/09/18 00:00 Last Admin: 12/14/17 18:41 Dose: 100 mls/hr Dextrose (D5w) 1,000 mls @ 50 mls/hr IV .Q20H [facility] Stop: 02/10/18 08:25 Last Infusion: 12/14/17 00:11 Dose: 50 mls/hr Albumin Human (Albutein 25%) 12.5 gm in 50 mls @ 50 mls/hr IV Q8HR [facility] Stop: 12/16/17 05:59 Last Admin: 12/14/17 15:25 Dose: 50 mls/hr Insulin Aspart (Novolog Insulin Sliding Scale) 0 units SUBQ Q6HR [facility] PRN Reason: Protocol Stop: 02/09/18 00:00 Last Admin: 12/14/17 18:00 Dose: Not Given Insulin Detemir (Levemir Insulin) 14 units SUBQ BID [facility] PRN Reason: Protocol Stop: 02/09/18 08:59 Last Admin: 12/14/17 18:34 Dose: 14 units Miscellaneous (Probiotic Screen) 1 ea MC PRN PRN PRN Reason: PROTOCOL Stop: 02/10/18 17:05 Morphine Sulfate (Morphine) 1 mg IVP Q4HR PRN PRN Reason: Pain (Severe) Stop: 02/10/18 23:46 Last Admin: 12/14/17 18:10 Dose: 1 mg Neomycin/Polymyxin/Bacitracin (Triple Antibiotic Pkt) 1 pkt TP DAILY [facility] Stop: 02/09/18 08:59 Last Admin: 12/14/17 10:01 Dose: 1 pkt Pantoprazole Sodium (Protonix) 40 mg IVP BID [facility] Stop: 02/09/18 08:59 Last Admin: 12/14/17 17:30 Dose: 40 mg Potassium Phosphate (K Phos) 1,000 mg PO BID [facility] Stop: 02/12/18 12:29 Last Admin: 12/14/17 17:30 Dose: 1,000 mg General: weak, demented HEENT: NC/AT, PERRLA, EOMI, anicteric sclerae, throat clear Neck: Supple, No JVD, No thyromegaly, +2 carotid pulse wo bruit, No LAD, + JVD Lungs: CTAB Cardiovascular: RRR, Normal S1, Normal S2, without murmur Abdomen: non-tender, non-distended Extremities: clear Neurological: no change - Procedures Procedures: Procedures Procedure Code Date BLOOD TRANSFUSION SERVICE 97737 12/10/17 EXCISION OF STOMACH, ENDO, DIAGN [id number] 11/15/17 INSERT TUNNELED CV CATH [id number] 11/15/17 INSERTION OF FEEDING DEVICE INTO STOMACH, ENDO 4OG15DS 11/15/17 INSERTION OF INFUSION DEV INTO R SUBCLAV VEIN, [facility] APPROACH 98K227N 11/15/17 PERFORMANCE OF URINARY FILTRATION, <6 HRS/DAY [id number] 11/15/17 REMOVAL OF INFUSION DEVICE FROM UPPER VEIN, PERC APPROACH 27OH05H 11/15/17 TRANSFUSE NONAUT RED BLOOD CELLS IN PERIPH VEIN, PERC 22245J7 12/10/17 ULTRASONOGRAPHY OF RIGHT SUBCLAVIAN VEIN, GUIDANCE [id number] 11/15/17 Internal Medicine Assmt/Plan - Assessment Assessment: 1.ASPIRATION PNEUMONIA. 2.SEPSIS. 3.ANEMIA. 4.DEHYDRATION 5.HEMATUREA - Plan Plan: CONTINUE ON CURRENT MEDICATION AND DIET.CONSULT UROLOGIST. Nutritional Asmnt/Malnutr-PDOC - Dietary Evaluation Malnutrition Findings (Please click <Entered> for more info): Nutritional Asmnt/Malnutrition Start: 12/13/17 16: 00 Text: Status: Complete Freq: Document 12/13/17 16:00 LCHENG (Rec: 12/13/17 16:22 [email or web address]) Nutritional Asmnt/Malnutrition Patient General Information Nutritional Screening High Risk Consult Diagnosis sepsis, PNA, rsepiratory failure, PENNY Pertinent Medical Hx/Surgical Hx DM, HTN, dementia, psychotic dysphagia Subjective Information Pt seen resting in bed at time of visit. TF was off at this time. Spoke with RN, RN reported pt tolerated TF well. Current Diet Order/ Nutrition Support novosource 50ml x 20hr, providing 2000kcal, 91g protein Pertinent Medications D5w, folate, glucagen, novolog , levemir, triple antibiotic pkt, protonix, piperacillin Pertinent Labs 2/ Na 158, K 3.6, Cl 127, BUN 65, Cr 1.3, Glucose 240, POC 170-249 Nutritional Hx/Data Height 1.85 m Height (Calculated Centimeters) 185.4 Current Weight (lbs) 68.039 kg Weight (Calculated Kilograms) 68.0 Weight (Calculated Grams) 40637.9 [place] Body Weight 184 % [place] Body Weight 82 Body Mass Index (BMI) 19.8 Weight Status Approriate GI Symptoms GI Symptoms None Last BM 2/5 Difficult in: None Skin Integrity/Comment: decubitus ulceration to right buttocks, bruise to RUE, maceration to scrotum Estimated Nutritional Goals BEE in Kcals: Using Current wt Calories/Kcals/Kg 27-32 Kcals Calculated 3212-5805 Protein: Using Current wt Protein g/k.2-1.4 monitor renal labs Protein Calculated 81-95 Fluid: ml 1836-2176ml (1ml/kcal) Nutritional Problem 1. Problem Problem altered nutrition related lab values Etiology dx of PENNY, hx of DM Signs/Symptoms: Na 158, BUN 65, Glucose 240, POC 170-249 Malnutrition Alert Protein-Calorie Malnutrition N/A Is there a minimum of two criteria No selected? Query Text:Check all the applicable criteria. A minimum of two criteria are recommended for diagnosis of either severe or non-severe malnutrition. Intervention/Recommendation Comments 1. Continue with current TF regimen. It provides 2000kcal, 91g protein, meeting 100% of nutritional needs 2. Monitor TF rate, tolerance, wt weekly, skin integrity and labs 3. F/U as moderate risk in 3-5 days, 12/16-12/18 Expected Outcomes/Goals Expected Outcomes/Goals 1. Pt to meet at least 75% of nutritional needs via nutrition support with tolerance 2. Wt stability, skin to remain intact, labs to approach WNL.
[2017-12-14] MEDS: Atorvastatin Calcium 10 MG TAB GT SCH (21:45)
[2017-12-15] MEDS: INSULIN ASPART SLIDING SCALE 100 UNITS/ML UNIT SUBQ SCH ×4 (01:10→18:22)
[2017-12-15] MEDS: Albuterol/Ipratropium Neb 3 ML AERS HHN SCH ×4 (01:10→18:43)
[2017-12-15] MEDS: Albumin 25% 12.5gm/50mL 12.5 GM/50 ML BTL IV SCH ×4 (04:10→21:15)
[2017-12-15 06:46] LABS: % BASOPHILS 0.2 % (0.0-2.0); % EOSINOPHILS 1.9 % (0.0-5.0); % LYMPHOCYTES 16.6 % (20.0-50.0); % MONOCYTES 4.4 % (2.0-10.0); % NEUTROPHILS 76.9 % (40.0-80.0); EOSINOPHILE ABSOLUTE 0.1 Th/cmm (0.1-0.4); MEAN CELL VOLUME 97.5 fl (80-99); MEAN CORPUSCULAR HEMOGLOBIN 33.6 pg (27.0-31.0); MEAN CORPUSCULAR HGB CONC 34.5 pg (28.0-36.0); MEAN PLATELET VOLUME 9.6 fl; MONOCYTE ABSOLUTE 0.3 Th/cmm (0.3-1.0); NEUTROPHILE ABSOLUTE 4.9 Th/cmm (1.8-8.0); PLATELET COUNT 129 Th/cmm (150-400); RED BLOOD COUNT 2.29 Mil/cmm (3.80-5.80); RED CELL DISTRIBUTION WIDTH 15.6 % (11.5-20.0); WHITE BLOOD COUNT 6.3 Th/cmm (4.8-10.8)
[2017-12-15 07:00] LABS: HEMATOCRIT 22.4 % (41.0-60); HEMOGLOBIN 7.7 gm/dL (12-16)
[2017-12-15 07:05] LABS: INR 1.13 (0.5-1.4); PROTHROMBIN TIME (TEST) 11.9 SECONDS (9.5-11.5)
[2017-12-15 07:11] LABS: ALB/GLOB RATIO 1.4 (1.0-1.8); ALBUMIN 2.6 gm/dL (4.2-5.5); ALKALINE PHOSPHATASE 134 U/L (34-104); BILIRUBIN,TOTAL 0.4 mg/dL (0.3-1.0); BUN - UREA NITROGEN 43 mg/dL (7-25); CALCIUM SERUM 7.8 mg/dL (8.6-10.3); CARBON DIOXIDE 24.1 mEq/L (21.0-31.0); CHLORIDE 125 mEq/L (98-107); GLUCOSE 195 mg/dL (70-105); PHOSPHOROUS 1.9 mg/dL (2.5-5.0); POTASSIUM SERUM 3.1 mEq/L (3.5-5.1); SGOT 78 U/L (13-39); SGPT/ALT 73 U/L (7-52); SODIUM SERUM 155 mEq/L (136-145); TOTAL PROTEIN,SERUM 4.5 gm/dL (6.0-8.3)
[2017-12-15 07:58] LABS: CREATININE - SERUM 1.1 mg/dL (0.7-1.3)
--- NOTE | 2017-12-15 08:47 | Diagnostic Imaging Report ---
Portable chest x-ray Time: 0749 hours History: Shortness of breath Findings: Study compared to prior exam of 12/13/2017 Allowing for portable technique the heart size is normal. No focal pulmonary parenchymal processes. Aortic arch calcified. Left-sided pacemaker is noted. No hilar or mediastinal abnormalities. Atelectatic changes in left base appreciated small effusion cannot be excluded. Clinical correlation recommended. Impression: Most likely atelectatic changes with pleural thickening left base. Essentially unchanged upper prior examination of line 12/13/2017.
[2017-12-15] MEDS: Triple Antibiotic 0.94 gm Pkt TP SCH (09:05)
[2017-12-15] MEDS: Insulin Detemir 100 units/mL 10mL Vial SUBQ SCH ×2 (09:41→19:59)
[2017-12-15] MEDS: Venelex 60gm Tube TP SCH (09:51)
[2017-12-15] MEDS: Dextrose 5% 1,000 ML IV SCH (10:00)
[2017-12-15] MEDS ORDERED: VTE Chemical Prophylaxis Screen/Admission MC PRN (10:24)
--- NOTE | 2017-12-15 12:17 | General Progress Note ---
Subjective - Review of Systems Service Date: 12/15/17 Objective - Results Result Diagrams: 12/15/17 06:20 12/15/17 06:20 Recent Labs: Laboratory Last Values WBC 6.3 Th/cmm (4.8-10.8) 12/15/17 06:20 Corrected WBC (auto) 4.4 Th/cmm 12/12/17 23:59 RBC 2.29 Mil/cmm (3.80-5.80) L 12/15/17 06:20 Hgb 7.7 gm/dL (12-16) L* 12/15/17 06:20 Hct 22.4 % (41.0-60) L D 12/15/17 06:20 MCV 97.5 fl (80-99) 12/15/17 06:20 MCH 33.6 pg (27.0-31.0) H 12/15/17 06:20 MCHC Differential 34.5 pg (28.0-36.0) 12/15/17 06:20 RDW 15.6 % (11.5-20.0) 12/15/17 06:20 Plt Count 129 Th/cmm (150-400) L 12/15/17 06:20 MPV 9.6 fl 12/15/17 06:20 Neutrophils % 76.9 % (40.0-80.0) 12/15/17 06:20 Band Neutrophils % 10 % (0-10) 12/12/17 23:59 Lymphocytes % 16.6 % (20.0-50.0) L 12/15/17 06:20 Monocytes % 4.4 % (2.0-10.0) 12/15/17 06:20 Eosinophils % 1.9 % (0.0-5.0) 12/15/17 06:20 Basophils % 0.2 % (0.0-2.0) 12/15/17 06:20 Neutrophils (Manual) 60 % (40-80) 12/12/17 23:59 Lymphocytes 20 % (20-50) 12/12/17 23:59 Monocytes 6 % (2-10) 12/12/17 23:59 Eosinophils 4 % (0-5) 12/12/17 23:59 Nucleated RBCs 6.0 % (0-0) H 12/12/17 23:59 Platelet Estimate SLIGHT DECREASED (NORMAL) 12/12/17 23:59 Platelet Morphology GIANT PLATELETS SEEN (NORMAL) 12/11/17 17:58 Polychromasia 1+ 12/11/17 17:58 Anisocytosis 1+ 12/11/17 17:58 RBC Morph Micro Appear ABNORMAL (NORMAL) 12/11/17 17:58 PT 11.9 SECONDS (9.5-11.5) H 12/15/17 06:20 INR 1.13 (0.5-1.4) 12/15/17 06:20 PTT (Actin FS) 26.9 SECONDS (26.0-38.0) 12/15/17 06:20 Specimen Source Arterial 12/10/17 14:05 Sample Site Left Radial 12/10/17 14:05 pH 7.51 (7.35-7.45) H 12/10/17 14:05 pCO2 36.0 mmHg (35.0-45.0) 12/10/17 14:05 pO2 102.0 mmHg (80.0-100.0) H 12/10/17 14:05 HCO3 29.2 mEq/L (20.0-26.0) H 12/10/17 14:05 Base Excess 5.5 mEq/L (-3.0-3.0) H 12/10/17 14:05 O2 Saturation 98.0 % (92.0-100.0) 12/10/17 14:05 Mario Test YES 12/10/17 14:05 Vent Rate NA 12/10/17 14:05 Inspired O2 50 12/10/17 14:05 Tidal Volume NA 12/10/17 14:05 PEEP NA 12/10/17 14:05 Pressure (ins/psv/peep) NA 12/10/17 14:05 Critical Value E.PICHARDO 12/10/17 14:05 Sodium 155 mEq/L (136-145) H 12/15/17 06:20 Potassium 3.1 mEq/L (3.5-5.1) L 12/15/17 06:20 Chloride 125 mEq/L (98-107) H 12/15/17 06:20 Carbon Dioxide 24.1 mEq/L (21.0-31.0) 12/15/17 06:20 Anion Gap 9.0 (7.0-16.0) 02/07/18 06:20 BUN 43 mg/dL (7-25) H 12/15/17 06:20 Creatinine 1.1 mg/dL (0.7-1.3) 12/15/17 06:20 Est GFR ( Amer) TNP 12/15/17 06:20 Est GFR (Non-Af Amer) TNP 12/15/17 06:20 BUN/Creatinine Ratio 39.1 12/15/17 06:20 Glucose 195 mg/dL (70-105) H 12/15/17 06:20 POC Glucose 109 MG/DL (70 - 105) H 12/15/17 11:45 Hemoglobin A1c % 6.4 % (4.0-6.0) H 12/11/17 05:30 Whole Bld Lactic Acid 1.12 mmol/L (0.60-1.99) 12/11/17 07:37 Calcium 7.8 mg/dL (8.6-10.3) L 12/15/17 06:20 Phosphorus 1.9 mg/dL (2.5-5.0) L 12/15/17 06:20 Magnesium 2.3 mg/dL (1.9-2.7) 12/13/17 07:45 Iron 26 ug/dL (38-169) L 12/11/17 05:30 TIBC 161 ug/dL (250-450) L 12/11/17 05:30 Iron Saturation 16 % (15-55) 12/11/17 05:30 Unsaturated IBC 135 ug/dL (111-343) 12/11/17 05:30 Ferritin 513 ng/mL (30-400) H 12/11/17 05:30 Total Bilirubin 0.4 mg/dL (0.3-1.0) 12/15/17 06:20 AST 78 U/L (13-39) H 12/15/17 06:20 ALT 73 U/L (7-52) H 12/15/17 06:20 Alkaline Phosphatase 134 U/L (34-104) H 12/15/17 06:20 Troponin I 0.44 ng/mL (0.01-0.05) H* D 12/10/17 14:06 B-Natriuretic Peptide 532.0 pg/mL (5.0-100.0) H 12/10/17 14:06 Total Protein 4.5 gm/dL (6.0-8.3) L 12/15/17 06:20 Albumin 2.6 gm/dL (4.2-5.5) L 12/15/17 06:20 Globulin 1.9 gm/dL 12/15/17 06:20 Albumin/Globulin Ratio 1.4 (1.0-1.8) 12/15/17 06:20 Vitamin B12 1620 pg/mL (232-1245) H 12/11/17 05:30 Folic Acid >20.0 ng/mL (>3.0) 12/11/17 05:30 Urine Source [place] 12/11/17 05:20 Urine Color RED 12/11/17 05:20 Urine Clarity BLOODY (CLEAR) 12/11/17 05:20 Urine pH 6.0 (4.6 - 8.0) 12/11/17 05:20 Ur Specific [place] 1.015 (1.005-1.030) 12/11/17 05:20 Urine Protein 100 mg/dL (NEGATIVE) H 12/11/17 05:20 Urine Glucose (UA) NEGATIVE mg/dL (NEGATIVE) 12/11/17 05:20 Urine Ketones NEGATIVE mg/dL (NEGATIVE) 12/11/17 05:20 Urine Blood LARGE (NEGATIVE) H 12/11/17 05:20 Urine Nitrate NEGATIVE (NEGATIVE) 12/11/17 05:20 Urine Bilirubin NEGATIVE (NEGATIVE) 12/11/17 05:20 Urine Urobilinogen 0.2 E.U./dL (0.2 - 1.0) 12/11/17 05:20 Ur Leukocyte Esterase TRACE (NEGATIVE) H 12/11/17 05:20 Urine RBC >100 /hpf (0-5) H 12/11/17 05:20 Urine WBC 2-5 /hpf (0-5) H 12/11/17 05:20 Ur Epithelial Cells RARE /lpf (FEW) 12/11/17 05:20 Urine Bacteria FEW /hpf (NONE SEEN) 12/11/17 05:20 Stool Occult Blood POSITIVE (NEGATIVE) H 12/13/17 13:20 Blood Type A POSITIVE 12/15/17 06:20 Antibody Screen NEGATIVE 12/15/17 06:20 Crossmatch See Detail 12/15/17 06:20 - Physical Exam Vitals and I&O: Vital Signs Temp 97.5 F 12/15/17 11:58 Pulse 77 12/15/17 11:58 Resp 29 12/15/17 11:58 BP 138/84 12/15/17 09:09 Pulse Ox 100 12/15/17 11:58 Intake & Output 12/14/17 12/15/17 12/15/17 18:59 06:59 18:59 Intake Total 550 1800 Output Total 1000 1100 Balance -450 700 Weight (lbs) 73.754 kg 73.482 kg Intake: Intake, IV Amount 100 1200 Albumin 25% 12.5gm/50mL 50 100 12.5 gm In 50 ml @ 50 mls /hr IV Q8HR [facility] Rx#: [id number] Dextrose 5% 1,000 ml @ 50 1000 mls/hr IV .Q20H [facility] Rx#: [id number] Piperacillin Sodium/ 50 100 Tazobact 3.375 gm In Sodium Chloride 0.9% 50 ml @ 100 mls/hr IV Q6HR [facility] Rx#:[id number] Oral 250 Tube Feeding 200 600 Output: Urine 1000 1100 Other: # Bowel Movements 1 2 Stool Characteristics Soft Soft Brown Black Green Active Medications: Current Medications Acetaminophen (Tylenol 650mg Supp) 650 mg RC Q4H PRN PRN Reason: Fever > 101 Stop: 02/08/18 23:09 Albuterol/Ipratropium (Duoneb Neb) 3 ml HHN Q6HRT [facility] Stop: 02/09/18 00:59 Last Admin: 12/15/17 07:32 Dose: 3 ml Amlodipine Besylate (Norvasc) 5 mg GT DAILY [facility] Stop: 02/09/18 08:59 Last Admin: 12/15/17 09:05 Dose: 5 mg Atorvastatin Calcium (Lipitor) 20 mg GT HS [facility] Stop: 02/09/18 20:59 Last Admin: 12/14/17 21:45 Dose: 20 mg Carvedilol (Coreg) 3.125 mg GT BID [facility] Stop: 02/09/18 08:59 Last Admin: 12/15/17 09:09 Dose: 3.125 mg [place] Oil/[place] Balsam/Trypsin (Venelex) 1 appl TP DAILY [facility] Stop: 02/09/18 08:59 Last Admin: 12/15/17 09:51 Dose: 1 appl Diltiazem HCl (Cardizem) 20 mg IVP Q4HR PRN PRN Reason: HR above 110 Stop: 02/08/18 23:09 Last Admin: 12/12/17 23:15 Dose: 20 mg Fluconazole (Diflucan) 100 mg PO DAILY [facility] Stop: 02/09/18 08:59 Last Admin: 12/15/17 09:08 Dose: 100 mg Folic Acid (Folate) 1 mg GT DAILY [facility] Stop: 02/10/18 08:59 Last Admin: 12/15/17 09:05 Dose: 1 mg Glucagon (Glucagen) 1 mg IM PRN PRN PRN Reason: BS BELOW 60 & NOT TOLERATE PO Stop: 02/08/18 23:14 Piperacillin Sod/Tazobactam (Sod 3.375 gm/ Sodium Chloride) 50 mls @ 100 mls/ hr IV Q6HR [facility] Stop: 02/09/18 00:00 Last Admin: 12/15/17 05:50 Dose: 100 mls/hr Dextrose (D5w) 1,000 mls @ 50 mls/hr IV .Q20H [facility] Stop: 02/10/18 08:25 Last Admin: 12/14/17 20:53 Dose: 50 mls/hr Albumin Human (Albutein 25%) 12.5 gm in 50 mls @ 50 mls/hr IV Q8HR [facility] Stop: 12/16/17 05:59 Last Infusion: 12/15/17 05:10 Dose: Infused Insulin Aspart (Novolog Insulin Sliding Scale) 0 units SUBQ Q6HR [facility] PRN Reason: Protocol Stop: 02/09/18 00:00 Last Admin: 12/15/17 05:57 Dose: Not Given Insulin Detemir (Levemir Insulin) 14 units SUBQ BID [facility] PRN Reason: Protocol Stop: 02/09/18 08:59 Last Admin: 12/15/17 09:41 Dose: 14 units Miscellaneous (Probiotic Screen) 1 ea MC PRN PRN PRN Reason: PROTOCOL Stop: 02/10/18 17:05 Miscellaneous (Vte Chemical Prophylaxis Screen/ Admission) 1 ea MC PRN PRN PRN Reason: PROTOCOL Stop: 02/13/18 10:23 Morphine Sulfate (Morphine) 1 mg IVP Q4HR PRN PRN Reason: Pain (Severe) Stop: 02/10/18 23:46 Last Admin: 12/14/17 18:10 Dose: 1 mg Neomycin/Polymyxin/Bacitracin (Triple Antibiotic Pkt) 1 pkt TP DAILY [facility] Stop: 02/09/18 08:59 Last Admin: 12/15/17 09:05 Dose: 1 pkt Pantoprazole Sodium (Protonix) 40 mg IVP BID [facility] Stop: 02/09/18 08:59 Last Admin: 12/15/17 09:05 Dose: 40 mg Potassium Phosphate (K Phos) 1,000 mg PO BID [facility] Stop: 02/12/18 12:29 Last Admin: 12/15/17 09:09 Dose: 1,000 mg General: No acute distress HEENT: PERRLA, EOMI Neck: Supple, +2 carotid pulse wo bruit Cardiovascular: Regular rate, Normal S1, Normal S2 Lungs: Other (decreased BS) Abdomen: Bowel sounds, Soft Extremities: Other (upper ext), no Edema Neurological: Sensation intact Skin: no Rash Psych/Mental Status: Mood NL - Procedures Procedures: Procedures Procedure Code Date BLOOD TRANSFUSION SERVICE 60866 12/10/17 EXCISION OF STOMACH, ENDO, DIAGN [id number] 11/15/17 INSERT TUNNELED CV CATH 22277 11/15/17 INSERTION OF FEEDING DEVICE INTO STOMACH, ENDO [id number] 11/15/17 INSERTION OF INFUSION DEV INTO R SUBCLAV VEIN, PERC APPROACH [id number] 11/15/17 PERFORMANCE OF URINARY FILTRATION, <6 HRS/DAY [id number] 11/15/17 REMOVAL OF INFUSION DEVICE FROM UPPER VEIN, PERC APPROACH [id number] 11/15/17 TRANSFUSE NONAUT RED BLOOD CELLS IN PERIPH VEIN, PERC 07305Z4 12/10/17 ULTRASONOGRAPHY OF RIGHT SUBCLAVIAN VEIN, GUIDANCE [id number] 11/15/17 Assessment/Plan - Problem List Patient Problems: All Active Problems SEVERE RESPIRATORY DISTRESS (Acute) - Assessment Assessment: * Anemia gauthier is positive for occult blood; otherwise no evidence of deficiency hgb unstable; transfuse prn and follow GI recs Continue gastric tube feeding Nutritional Asmnt/Malnutr-PDOC - Dietary Evaluation Malnutrition Findings (Please click <Entered> for more info): Nutritional Asmnt/Malnutrition Start: 12/13/17 16: 00 Text: Status: Complete Freq: Document 12/13/17 16:00 LCHEN (Rec: 12/13/17 16:22 LCHENG [email or web address]) Nutritional Asmnt/Malnutrition Patient General Information Nutritional Screening High Risk Consult Diagnosis sepsis, PNA, rsepiratory failure, PENNY Pertinent Medical Hx/Surgical Hx DM, HTN, dementia, psychotic dysphagia Subjective Information Pt seen resting in bed at time of visit. TF was off at this time. Spoke with RN, RN reported pt tolerated TF well. Current Diet Order/ Nutrition Support novosource 50ml x 20hr, providing 2000kcal, 91g protein Pertinent Medications D5w, folate, glucagen, novolog , levemir, triple antibiotic pkt, protonix, piperacillin Pertinent Labs 2/ Na 158, K 3.6, Cl 127, BUN 65, Cr 1.3, Glucose 240, POC 170-249 Nutritional Hx/Data Height 1.85 m Height (Calculated Centimeters) 185.4 Current Weight (lbs) 68.039 kg Weight (Calculated Kilograms) 68.0 Weight (Calculated Grams) 94143.9 [place] Body Weight 184 % [place] Body Weight 82 Body Mass Index (BMI) 19.8 Weight Status Approriate GI Symptoms GI Symptoms None Last BM 2/5 Difficult in: None Skin Integrity/Comment: decubitus ulceration to right buttocks, bruise to RUE, maceration to scrotum Estimated Nutritional Goals BEE in Kcals: Using Current wt Calories/Kcals/Kg 27-32 Kcals Calculated 4326-8295 Protein: Using Current wt Protein g/k.2-1.4 monitor renal labs Protein Calculated 81-95 Fluid: ml 1836-2176ml (1ml/kcal) Nutritional Problem 1. Problem Problem altered nutrition related lab values Etiology dx of PENNY, hx of DM Signs/Symptoms: Na 158, BUN 65, Glucose 240, POC 170-249 Malnutrition Alert Protein-Calorie Malnutrition N/A Is there a minimum of two criteria No selected? Query Text:Check all the applicable criteria. A minimum of two criteria are recommended for diagnosis of either severe or non-severe malnutrition. Intervention/Recommendation Comments 1. Continue with current TF regimen. It provides 2000kcal, 91g protein, meeting 100% of nutritional needs 2. Monitor TF rate, tolerance, wt weekly, skin integrity and labs 3. F/U as moderate risk in 3-5 days, 2-12/18 Expected Outcomes/Goals Expected Outcomes/Goals 1. Pt to meet at least 75% of nutritional needs via nutrition support with tolerance 2. Wt stability, skin to remain intact, labs to approach WNL.
[2017-12-15] MEDS ORDERED: Potassium Phosphate 20 MMOLE in Sodium Chloride 0.9% 250 ML IV ONE (14:34)
--- NOTE | 2017-12-15 14:42 | General Progress Note ---
Subjective - Review of Systems Service Date: 12/15/17 Subjective: awake, comfortable, having US Objective - Results Result Diagrams: 12/15/17 06:20 12/15/17 06:20 Recent Labs: Laboratory Last Values WBC 6.3 Th/cmm (4.8-10.8) 12/15/17 06:20 Corrected WBC (auto) 4.4 Th/cmm 12/12/17 23:59 RBC 2.29 Mil/cmm (3.80-5.80) L 12/15/17 06:20 Hgb 7.7 gm/dL (12-16) L* 12/15/17 06:20 Hct 22.4 % (41.0-60) L D 12/15/17 06:20 MCV 97.5 fl (80-99) 12/15/17 06:20 MCH 33.6 pg (27.0-31.0) H 12/15/17 06:20 MCHC Differential 34.5 pg (28.0-36.0) 12/15/17 06:20 RDW 15.6 % (11.5-20.0) 12/15/17 06:20 Plt Count 129 Th/cmm (150-400) L 12/15/17 06:20 MPV 9.6 fl 12/15/17 06:20 Neutrophils % 76.9 % (40.0-80.0) 12/15/17 06:20 Band Neutrophils % 10 % (0-10) 12/12/17 23:59 Lymphocytes % 16.6 % (20.0-50.0) L 12/15/17 06:20 Monocytes % 4.4 % (2.0-10.0) 12/15/17 06:20 Eosinophils % 1.9 % (0.0-5.0) 12/15/17 06:20 Basophils % 0.2 % (0.0-2.0) 12/15/17 06:20 Neutrophils (Manual) 60 % (40-80) 12/12/17 23:59 Lymphocytes 20 % (20-50) 12/12/17 23:59 Monocytes 6 % (2-10) 12/12/17 23:59 Eosinophils 4 % (0-5) 12/12/17 23:59 Nucleated RBCs 6.0 % (0-0) H 12/12/17 23:59 Platelet Estimate SLIGHT DECREASED (NORMAL) 12/12/17 23:59 Platelet Morphology GIANT PLATELETS SEEN (NORMAL) 12/11/17 17:58 Polychromasia 1+ 12/11/17 17:58 Anisocytosis 1+ 12/11/17 17:58 RBC Morph Micro Appear ABNORMAL (NORMAL) 12/11/17 17:58 PT 11.9 SECONDS (9.5-11.5) H 12/15/17 06:20 INR 1.13 (0.5-1.4) 12/15/17 06:20 PTT (Actin FS) 26.9 SECONDS (26.0-38.0) 12/15/17 06:20 Specimen Source Arterial 12/10/17 14:05 Sample Site Left Radial 12/10/17 14:05 pH 7.51 (7.35-7.45) H 12/10/17 14:05 pCO2 36.0 mmHg (35.0-45.0) 12/10/17 14:05 pO2 102.0 mmHg (80.0-100.0) H 12/10/17 14:05 HCO3 29.2 mEq/L (20.0-26.0) H 12/10/17 14:05 Base Excess 5.5 mEq/L (-3.0-3.0) H 12/10/17 14:05 O2 Saturation 98.0 % (92.0-100.0) 12/10/17 14:05 Mario Test YES 12/10/17 14:05 Vent Rate NA 12/10/17 14:05 Inspired O2 50 12/10/17 14:05 Tidal Volume NA 12/10/17 14:05 PEEP NA 12/10/17 14:05 Pressure (ins/psv/peep) NA 12/10/17 14:05 Critical Value E.PICHARDO 12/10/17 14:05 Sodium 155 mEq/L (136-145) H 12/15/17 06:20 Potassium 3.1 mEq/L (3.5-5.1) L 12/15/17 06:20 Chloride 125 mEq/L (98-107) H 12/15/17 06:20 Carbon Dioxide 24.1 mEq/L (21.0-31.0) 12/15/17 06:20 Anion Gap 9.0 (7.0-16.0) 12/15/17 06:20 BUN 43 mg/dL (7-25) H 12/15/17 06:20 Creatinine 1.1 mg/dL (0.7-1.3) 12/15/17 06:20 Est GFR ( Amer) TNP 12/15/17 06:20 Est GFR (Non-Af Amer) TNP 12/15/17 06:20 BUN/Creatinine Ratio 39.1 12/15/17 06:20 Glucose 195 mg/dL (70-105) H 12/15/17 06:20 POC Glucose 109 MG/DL (70 - 105) H 12/15/17 11:45 Hemoglobin A1c % 6.4 % (4.0-6.0) H 12/11/17 05:30 Whole Bld Lactic Acid 1.12 mmol/L (0.60-1.99) 12/11/17 07:37 Calcium 7.8 mg/dL (8.6-10.3) L 12/15/17 06:20 Phosphorus 1.9 mg/dL (2.5-5.0) L 12/15/17 06:20 Magnesium 2.3 mg/dL (1.9-2.7) 12/13/17 07:45 Iron 26 ug/dL (38-169) L 12/11/17 05:30 TIBC 161 ug/dL (250-450) L 12/11/17 05:30 Iron Saturation 16 % (15-55) 12/11/17 05:30 Unsaturated IBC 135 ug/dL (111-343) 12/11/17 05:30 Ferritin 513 ng/mL (30-400) H 12/11/17 05:30 Total Bilirubin 0.4 mg/dL (0.3-1.0) 12/15/17 06:20 AST 78 U/L (13-39) H 12/15/17 06:20 ALT 73 U/L (7-52) H 12/15/17 06:20 Alkaline Phosphatase 134 U/L (34-104) H 12/15/17 06:20 Troponin I 0.44 ng/mL (0.01-0.05) H* D 12/10/17 14:06 B-Natriuretic Peptide 532.0 pg/mL (5.0-100.0) H 12/10/17 14:06 Total Protein 4.5 gm/dL (6.0-8.3) L 12/15/17 06:20 Albumin 2.6 gm/dL (4.2-5.5) L 12/15/17 06:20 Globulin 1.9 gm/dL 12/15/17 06:20 Albumin/Globulin Ratio 1.4 (1.0-1.8) 12/15/17 06:20 Vitamin B12 1620 pg/mL (232-1245) H 12/11/17 05:30 Folic Acid >20.0 ng/mL (>3.0) 12/11/17 05:30 Urine Source [place] 12/11/17 05:20 Urine Color RED 12/11/17 05:20 Urine Clarity BLOODY (CLEAR) 12/11/17 05:20 Urine pH 6.0 (4.6 - 8.0) 12/11/17 05:20 Ur Specific [place] 1.015 (1.005-1.030) 12/11/17 05:20 Urine Protein 100 mg/dL (NEGATIVE) H 12/11/17 05:20 Urine Glucose (UA) NEGATIVE mg/dL (NEGATIVE) 12/11/17 05:20 Urine Ketones NEGATIVE mg/dL (NEGATIVE) 12/11/17 05:20 Urine Blood LARGE (NEGATIVE) H 12/11/17 05:20 Urine Nitrate NEGATIVE (NEGATIVE) 12/11/17 05:20 Urine Bilirubin NEGATIVE (NEGATIVE) 12/11/17 05:20 Urine Urobilinogen 0.2 E.U./dL (0.2 - 1.0) 12/11/17 05:20 Ur Leukocyte Esterase TRACE (NEGATIVE) H 12/11/17 05:20 Urine RBC >100 /hpf (0-5) H 12/11/17 05:20 Urine WBC 2-5 /hpf (0-5) H 12/11/17 05:20 Ur Epithelial Cells RARE /lpf (FEW) 12/11/17 05:20 Urine Bacteria FEW /hpf (NONE SEEN) 12/11/17 05:20 Stool Occult Blood POSITIVE (NEGATIVE) H 12/13/17 13:20 Blood Type A POSITIVE 12/15/17 06:20 Antibody Screen NEGATIVE 12/15/17 06:20 Crossmatch See Detail 12/15/17 06:20 - Physical Exam Vitals and I&O: Vital Signs Temp 97.8 F 12/15/17 12:00 Pulse 72 12/15/17 13:17 Resp 14 12/15/17 13:17 BP 151/83 12/15/17 12:00 Pulse Ox 100 12/15/17 13:17 Intake & Output 12/14/17 12/15/17 12/15/17 18:59 06:59 18:59 Intake Total 550 1850 Output Total 1000 1100 Balance -450 750 Weight (lbs) 73.754 kg 73.482 kg Intake: Intake, IV Amount 100 1250 Albumin 25% 12.5gm/50mL 50 100 12.5 gm In 50 ml @ 50 mls /hr IV Q8HR [facility] Rx#: [id number] Dextrose 5% 1,000 ml @ 50 1000 mls/hr IV .Q20H [facility] Rx#: [id number] Piperacillin Sodium/ 50 150 Tazobact 3.375 gm In Sodium Chloride 0.9% 50 ml @ 100 mls/hr IV Q6HR [facility] Rx#:[id number] Oral 250 Tube Feeding 200 600 Output: Urine 1000 1100 Other: # Bowel Movements 1 2 Stool Characteristics Soft Soft Soft Brown Black Black Green Active Medications: Current Medications Acetaminophen (Tylenol 650mg Supp) 650 mg RC Q4H PRN PRN Reason: Fever > 101 Stop: 02/08/18 23:09 Albuterol/Ipratropium (Duoneb Neb) 3 ml HHN Q6HRT [facility] Stop: 02/09/18 00:59 Last Admin: 12/15/17 13:17 Dose: 3 ml Amlodipine Besylate (Norvasc) 5 mg GT DAILY [facility] Stop: 02/09/18 08:59 Last Admin: 12/15/17 09:05 Dose: 5 mg Atorvastatin Calcium (Lipitor) 20 mg GT HS [facility] Stop: 02/09/18 20:59 Last Admin: 12/14/17 21:45 Dose: 20 mg Carvedilol (Coreg) 3.125 mg GT BID [facility] Stop: 02/09/18 08:59 Last Admin: 12/15/17 09:09 Dose: 3.125 mg Zullinger Oil/Trinidadian Balsam/Trypsin (Venelex) 1 appl TP DAILY [facility] Stop: 02/09/18 08:59 Last Admin: 12/15/17 09:51 Dose: 1 appl Diltiazem HCl (Cardizem) 20 mg IVP Q4HR PRN PRN Reason: HR above 110 Stop: 02/08/18 23:09 Last Admin: 12/12/17 23:15 Dose: 20 mg Fluconazole (Diflucan) 100 mg PO DAILY [facility] Stop: 02/09/18 08:59 Last Admin: 12/15/17 09:08 Dose: 100 mg Folic Acid (Folate) 1 mg GT DAILY [facility] Stop: 02/10/18 08:59 Last Admin: 12/15/17 09:05 Dose: 1 mg Glucagon (Glucagen) 1 mg IM PRN PRN PRN Reason: BS BELOW 60 & NOT TOLERATE PO Stop: 02/08/18 23:14 Piperacillin Sod/Tazobactam (Sod 3.375 gm/ Sodium Chloride) 50 mls @ 100 mls/ hr IV Q6HR [facility] Stop: 02/09/18 00:00 Last Admin: 12/15/17 12:20 Dose: Not Given Albumin Human (Albutein 25%) 12.5 gm in 50 mls @ 50 mls/hr IV Q8HR [facility] Stop: 12/16/17 05:59 Last Admin: 12/15/17 12:27 Dose: Not Given Potassium Phosphate 20 mmole/ (Sodium Chloride) 256.6667 mls @ 42.5 mls/hr IV X1 ONE Stop: 12/15/17 20:36 Dextrose (D5w) 1,000 mls @ 75 mls/hr IV .[id number] [facility] Stop: 02/13/18 14:34 Insulin Aspart (Novolog Insulin Sliding Scale) 0 units SUBQ Q6HR [facility] PRN Reason: Protocol Stop: 02/09/18 00:00 Last Admin: 12/15/17 12:17 Dose: Not Given Insulin Detemir (Levemir Insulin) 14 units SUBQ BID [facility] PRN Reason: Protocol Stop: 02/09/18 08:59 Last Admin: 12/15/17 09:41 Dose: 14 units Miscellaneous (Probiotic Screen) 1 ea MC PRN PRN PRN Reason: PROTOCOL Stop: 02/10/18 17:05 Miscellaneous (Vte Chemical Prophylaxis Screen/ Admission) 1 ea MC PRN PRN PRN Reason: PROTOCOL Stop: 02/13/18 10:23 Morphine Sulfate (Morphine) 1 mg IVP Q4HR PRN PRN Reason: Pain (Severe) Stop: 02/10/18 23:46 Last Admin: 12/14/17 18:10 Dose: 1 mg Neomycin/Polymyxin/Bacitracin (Triple Antibiotic Pkt) 1 pkt TP DAILY [facility] Stop: 02/09/18 08:59 Last Admin: 12/15/17 09:05 Dose: 1 pkt Pantoprazole Sodium (Protonix) 40 mg IVP BID [facility] Stop: 02/09/18 08:59 Last Admin: 12/15/17 09:05 Dose: 40 mg Potassium Phosphate (K Phos) 1,000 mg PO BID [facility] Stop: 02/12/18 12:29 Last Admin: 12/15/17 09:09 Dose: 1,000 mg General: No acute distress HEENT: PERRLA, EOMI Neck: Supple, +2 carotid pulse wo bruit Cardiovascular: Regular rate, Normal S1, Normal S2 Lungs: Other (decreased BS) Abdomen: Bowel sounds, Soft Extremities: Other (upper ext), no Edema Neurological: Sensation intact Skin: no Rash Psych/Mental Status: Mood NL - Procedures Procedures: Procedures Procedure Code Date BLOOD TRANSFUSION SERVICE 60440 12/10/17 EXCISION OF STOMACH, ENDO, DIAGN [id number] 11/15/17 INSERT TUNNELED CV CATH 08321 11/15/17 INSERTION OF FEEDING DEVICE INTO STOMACH, ENDO [id number] 11/15/17 INSERTION OF INFUSION DEV INTO R SUBCLAV VEIN, PERC APPROACH [id number] 11/15/17 PERFORMANCE OF URINARY FILTRATION, <6 HRS/DAY [id number] 11/15/17 REMOVAL OF INFUSION DEVICE FROM UPPER VEIN, PERC APPROACH [id number] 11/15/17 TRANSFUSE NONAUT RED BLOOD CELLS IN PERIPH VEIN, PERC 46582S2 12/10/17 ULTRASONOGRAPHY OF RIGHT SUBCLAVIAN VEIN, GUIDANCE [id number] 11/15/17 Assessment/Plan - Problem List Patient Problems: All Active Problems SEVERE RESPIRATORY DISTRESS (Acute) - Assessment Assessment: PENNY Hypernatremia CVA Type 2 DM Ess Htn Thrombocytopenia Severe Anemia B/L Scrotal Hydrocele Left HAP - Plan Plan: Lab - Result Diagrams 12/13/17 07:45 12/13/17 07:45 Current Medications Acetaminophen (Tylenol 650mg Supp) 650 mg RC Q4H PRN PRN Reason: Fever > 101 Stop: 02/08/18 23:09 Albuterol/Ipratropium (Duoneb Neb) 3 ml HHN Q6HRT [facility] Stop: 02/09/18 00:59 Last Admin: 12/13/17 12:42 Dose: 3 ml Amlodipine Besylate (Norvasc) 5 mg GT DAILY [facility] Stop: 02/09/18 08:59 Last Admin: 12/13/17 08:52 Dose: 5 mg Atorvastatin Calcium (Lipitor) 20 mg GT HS [facility] Stop: 02/09/18 20:59 Last Admin: 12/12/17 21:41 Dose: 20 mg Carvedilol (Coreg) 3.125 mg GT BID [facility] Stop: 02/09/18 08:59 Last Admin: 12/13/17 08:52 Dose: 3.125 mg Zullinger Oil/Trinidadian Balsam/Trypsin (Venelex) 1 appl TP DAILY [facility] Stop: 02/09/18 08:59 Last Admin: 12/13/17 08:55 Dose: 1 appl Diltiazem HCl (Cardizem) 20 mg IVP Q4HR PRN PRN Reason: HR above 110 Stop: 02/08/18 23:09 Last Admin: 12/12/17 23:15 Dose: 20 mg Fluconazole (Diflucan) 100 mg PO DAILY [facility] Stop: 02/09/18 08:59 Last Admin: 12/13/17 08:51 Dose: 100 mg Folic Acid (Folate) 1 mg GT DAILY [facility] Stop: 02/10/18 08:59 Last Admin: 12/13/17 08:52 Dose: 1 mg Glucagon (Glucagen) 1 mg IM PRN PRN PRN Reason: BS BELOW 60 & NOT TOLERATE PO Stop: 02/08/18 23:14 Piperacillin Sod/Tazobactam (Sod 3.375 gm/ Sodium Chloride) 50 mls @ 100 mls/ hr IV Q6HR [facility] Stop: 02/09/18 00:00 Last Admin: 12/13/17 12:49 Dose: 100 mls/hr Dextrose (D5w) 1,000 mls @ 50 mls/hr IV .Q20H [facility] Stop: 02/10/18 08:25 Last Admin: 12/13/17 08:53 Dose: 50 mls/hr Insulin Aspart (Novolog Insulin Sliding Scale) 0 units SUBQ Q6HR [facility] PRN Reason: Protocol Stop: 02/09/18 00:00 Last Admin: 12/13/17 12:49 Dose: 2 units Insulin Detemir (Levemir Insulin) 14 units SUBQ BID [facility] PRN Reason: Protocol Stop: 02/09/18 08:59 Last Admin: 12/13/17 08:54 Dose: 14 units Miscellaneous (Probiotic Screen) 1 ea MC PRN PRN PRN Reason: PROTOCOL Stop: 02/10/18 17:05 Morphine Sulfate (Morphine) 1 mg IVP Q4HR PRN PRN Reason: Pain (Severe) Stop: 02/10/18 23:46 Last Admin: 12/13/17 01:43 Dose: 1 mg Neomycin/Polymyxin/Bacitracin (Triple Antibiotic Pkt) 1 pkt TP DAILY [facility] Stop: 02/09/18 08:59 Last Admin: 12/13/17 08:52 Dose: 1 pkt Pantoprazole Sodium (Protonix) 40 mg IVP BID [facility] Stop: 02/09/18 08:59 Last Admin: 12/13/17 08:53 Dose: 40 mg Lab - Result Diagrams 12/15/17 06:20 12/15/17 06:20 Na & BUN gradually improving Has mild upper ext edema request scrotal US B/L Hydrocele On H20 flushes,increase D5W to 70 ml/hr Duplex scan no RUE DVT CXR left consolidation rteplace K, PO4 Nutritional Asmnt/Malnutr-PDOC - Dietary Evaluation Malnutrition Findings (Please click <Entered> for more info): Nutritional Asmnt/Malnutrition Start: 12/13/17 16: 00 Text: Status: Complete Freq: Document 12/13/17 16:00 LCHENG (Rec: 12/13/17 16:22 [email or web address] [email or web address]) Nutritional Asmnt/Malnutrition Patient General Information Nutritional Screening High Risk Consult Diagnosis sepsis, PNA, rsepiratory failure, PENNY Pertinent Medical Hx/Surgical Hx DM, HTN, dementia, psychotic dysphagia Subjective Information Pt seen resting in bed at time of visit. TF was off at this time. Spoke with RN, RN reported pt tolerated TF well. Current Diet Order/ Nutrition Support novosource 50ml x 20hr, providing 2000kcal, 91g protein Pertinent Medications D5w, folate, glucagen, novolog , levemir, triple antibiotic pkt, protonix, piperacillin Pertinent Labs 2/5 Na 158, K 3.6, Cl 127, BUN 65, Cr 1.3, Glucose 240, POC 170-249 Nutritional Hx/Data Height 1.85 m Height (Calculated Centimeters) 185.4 Current Weight (lbs) 68.039 kg Weight (Calculated Kilograms) 68.0 Weight (Calculated Grams) 04533.9 [place] Body Weight 184 % [place] Body Weight 82 Body Mass Index (BMI) 19.8 Weight Status Approriate GI Symptoms GI Symptoms None Last BM 2/5 Difficult in: None Skin Integrity/Comment: decubitus ulceration to right buttocks, bruise to RUE, maceration to scrotum Estimated Nutritional Goals BEE in Kcals: Using Current wt Calories/Kcals/Kg 27-32 Kcals Calculated 1384-0244 Protein: Using Current wt Protein g/k.2-1.4 monitor renal labs Protein Calculated 81-95 Fluid: ml 1836-2176ml (1ml/kcal) Nutritional Problem 1. Problem Problem altered nutrition related lab values Etiology dx of PENNY, hx of DM Signs/Symptoms: Na 158, BUN 65, Glucose 240, POC 170-249 Malnutrition Alert Protein-Calorie Malnutrition N/A Is there a minimum of two criteria No selected? Query Text:Check all the applicable criteria. A minimum of two criteria are recommended for diagnosis of either severe or non-severe malnutrition. Intervention/Recommendation Comments 1. Continue with current TF regimen. It provides 2000kcal, 91g protein, meeting 100% of nutritional needs 2. Monitor TF rate, tolerance, wt weekly, skin integrity and labs 3. F/U as moderate risk in 3-5 days, 12/16-12/18 Expected Outcomes/Goals Expected Outcomes/Goals 1. Pt to meet at least 75% of nutritional needs via nutrition support with tolerance 2. Wt stability, skin to remain intact, labs to approach WNL.
[2017-12-15] MEDS ORDERED: Dextrose 50% 50 mL Abboject IVP ONE (15:15)
[2017-12-15] MEDS ORDERED: GLUCAGON HCl 1 MG KIT IM PRN (15:18)
[2017-12-15] MEDS ORDERED: Dextrose 50% 50 mL Abboject IVP PRN (15:18)
--- NOTE | 2017-12-15 20:55 | Internal Medicine Prog Note ---
Internal Medicine Subjective - Subjective Service Date: 12/15/17 Patient seen and examined:: with staff (his guiac test is posative.he recieved two units blood.) Patient is:: non-verbal, in bed, confused Per staff patient has:: no adverse event Internal Medicine Objective - Results Result Diagrams: 12/15/17 06:20 12/15/17 06:20 Recent Labs: Laboratory Last Values WBC 6.3 Th/cmm (4.8-10.8) 12/15/17 06:20 Corrected WBC (auto) 4.4 Th/cmm 12/12/17 23:59 RBC 2.29 Mil/cmm (3.80-5.80) L 12/15/17 06:20 Hgb 7.7 gm/dL (12-16) L* 12/15/17 06:20 Hct 22.4 % (41.0-60) L D 12/15/17 06:20 MCV 97.5 fl (80-99) 12/15/17 06:20 MCH 33.6 pg (27.0-31.0) H 12/15/17 06:20 MCHC Differential 34.5 pg (28.0-36.0) 12/15/17 06:20 RDW 15.6 % (11.5-20.0) 12/15/17 06:20 Plt Count 129 Th/cmm (150-400) L 12/15/17 06:20 MPV 9.6 fl 12/15/17 06:20 Neutrophils % 76.9 % (40.0-80.0) 12/15/17 06:20 Band Neutrophils % 10 % (0-10) 12/12/17 23:59 Lymphocytes % 16.6 % (20.0-50.0) L 12/15/17 06:20 Monocytes % 4.4 % (2.0-10.0) 12/15/17 06:20 Eosinophils % 1.9 % (0.0-5.0) 12/15/17 06:20 Basophils % 0.2 % (0.0-2.0) 12/15/17 06:20 Neutrophils (Manual) 60 % (40-80) 12/12/17 23:59 Lymphocytes 20 % (20-50) 12/12/17 23:59 Monocytes 6 % (2-10) 12/12/17 23:59 Eosinophils 4 % (0-5) 12/12/17 23:59 Nucleated RBCs 6.0 % (0-0) H 12/12/17 23:59 Platelet Estimate SLIGHT DECREASED (NORMAL) 12/12/17 23:59 Platelet Morphology GIANT PLATELETS SEEN (NORMAL) 12/11/17 17:58 Polychromasia 1+ 12/11/17 17:58 Anisocytosis 1+ 12/11/17 17:58 RBC Morph Micro Appear ABNORMAL (NORMAL) 12/11/17 17:58 PT 11.9 SECONDS (9.5-11.5) H 12/15/17 06:20 INR 1.13 (0.5-1.4) 12/15/17 06:20 PTT (Actin FS) 26.9 SECONDS (26.0-38.0) 12/15/17 06:20 Specimen Source Arterial 12/10/17 14:05 Sample Site Left Radial 12/10/17 14:05 pH 7.51 (7.35-7.45) H 12/10/17 14:05 pCO2 36.0 mmHg (35.0-45.0) 12/10/17 14:05 pO2 102.0 mmHg (80.0-100.0) H 12/10/17 14:05 HCO3 29.2 mEq/L (20.0-26.0) H 12/10/17 14:05 Base Excess 5.5 mEq/L (-3.0-3.0) H 12/10/17 14:05 O2 Saturation 98.0 % (92.0-100.0) 12/10/17 14:05 Mario Test YES 12/10/17 14:05 Vent Rate NA 12/10/17 14:05 Inspired O2 50 12/10/17 14:05 Tidal Volume NA 12/10/17 14:05 PEEP NA 12/10/17 14:05 Pressure (ins/psv/peep) NA 12/10/17 14:05 Critical Value E.PICHARDO 12/10/17 14:05 Sodium 155 mEq/L (136-145) H 12/15/17 06:20 Potassium 3.1 mEq/L (3.5-5.1) L 12/15/17 06:20 Chloride 125 mEq/L (98-107) H 12/15/17 06:20 Carbon Dioxide 24.1 mEq/L (21.0-31.0) 12/15/17 06:20 Anion Gap 9.0 (7.0-16.0) 12/15/17 06:20 BUN 43 mg/dL (7-25) H 12/15/17 06:20 Creatinine 1.1 mg/dL (0.7-1.3) 12/15/17 06:20 Est GFR ( Amer) TNP 12/15/17 06:20 Est GFR (Non-Af Amer) TNP 12/15/17 06:20 BUN/Creatinine Ratio 39.1 12/15/17 06:20 Glucose 195 mg/dL (70-105) H 12/15/17 06:20 POC Glucose 71 MG/DL (70 - 105) 12/15/17 17:59 Hemoglobin A1c % 6.4 % (4.0-6.0) H 12/11/17 05:30 Whole Bld Lactic Acid 1.12 mmol/L (0.60-1.99) 12/11/17 07:37 Calcium 7.8 mg/dL (8.6-10.3) L 12/15/17 06:20 Phosphorus 1.9 mg/dL (2.5-5.0) L 12/15/17 06:20 Magnesium 2.3 mg/dL (1.9-2.7) 12/13/17 07:45 Iron 26 ug/dL (38-169) L 12/11/17 05:30 TIBC 161 ug/dL (250-450) L 12/11/17 05:30 Iron Saturation 16 % (15-55) 12/11/17 05:30 Unsaturated IBC 135 ug/dL (111-343) 12/11/17 05:30 Ferritin 513 ng/mL (30-400) H 12/11/17 05:30 Total Bilirubin 0.4 mg/dL (0.3-1.0) 12/15/17 06:20 AST 78 U/L (13-39) H 12/15/17 06:20 ALT 73 U/L (7-52) H 12/15/17 06:20 Alkaline Phosphatase 134 U/L (34-104) H 12/15/17 06:20 Troponin I 0.44 ng/mL (0.01-0.05) H* D 12/10/17 14:06 B-Natriuretic Peptide 532.0 pg/mL (5.0-100.0) H 12/10/17 14:06 Total Protein 4.5 gm/dL (6.0-8.3) L 12/15/17 06:20 Albumin 2.6 gm/dL (4.2-5.5) L 12/15/17 06:20 Globulin 1.9 gm/dL 12/15/17 06:20 Albumin/Globulin Ratio 1.4 (1.0-1.8) 12/15/17 06:20 Vitamin B12 1620 pg/mL (232-1245) H 12/11/17 05:30 Folic Acid >20.0 ng/mL (>3.0) 12/11/17 05:30 Urine Source [place] 12/11/17 05:20 Urine Color RED 12/11/17 05:20 Urine Clarity BLOODY (CLEAR) 12/11/17 05:20 Urine pH 6.0 (4.6 - 8.0) 12/11/17 05:20 Ur Specific [place] 1.015 (1.005-1.030) 12/11/17 05:20 Urine Protein 100 mg/dL (NEGATIVE) H 12/11/17 05:20 Urine Glucose (UA) NEGATIVE mg/dL (NEGATIVE) 12/11/17 05:20 Urine Ketones NEGATIVE mg/dL (NEGATIVE) 12/11/17 05:20 Urine Blood LARGE (NEGATIVE) H 12/11/17 05:20 Urine Nitrate NEGATIVE (NEGATIVE) 12/11/17 05:20 Urine Bilirubin NEGATIVE (NEGATIVE) 12/11/17 05:20 Urine Urobilinogen 0.2 E.U./dL (0.2 - 1.0) 12/11/17 05:20 Ur Leukocyte Esterase TRACE (NEGATIVE) H 12/11/17 05:20 Urine RBC >100 /hpf (0-5) H 12/11/17 05:20 Urine WBC 2-5 /hpf (0-5) H 12/11/17 05:20 Ur Epithelial Cells RARE /lpf (FEW) 12/11/17 05:20 Urine Bacteria FEW /hpf (NONE SEEN) 12/11/17 05:20 Stool Occult Blood POSITIVE (NEGATIVE) H 12/13/17 13:20 Blood Type A POSITIVE 12/15/17 06:20 Antibody Screen NEGATIVE 12/15/17 06:20 Crossmatch See Detail 12/15/17 06:20 - Physical Exam Vitals and I&O: Vital Signs Temp 97.1 F 12/15/17 18:00 Pulse 74 12/15/17 18:43 Resp 13 12/15/17 18:43 BP 136/72 12/15/17 18:39 Pulse Ox 98 12/15/17 18:43 Intake & Output 12/15/17 12/15/17 12/16/17 06:59 18:59 06:59 Intake Total 1850 1000 100 Output Total 1100 1400 Balance 750 -400 100 Weight (lbs) 73.482 kg 73.936 kg Intake: Intake, IV Amount 1250 100 Albumin 25% 12.5gm/50mL 100 50 12.5 gm In 50 ml @ 50 mls /hr IV Q8HR [facility] Rx#: [id number] Dextrose 5% 1,000 ml @ 50 1000 mls/hr IV .Q20H [facility] Rx#: [id number] Piperacillin Sodium/ 150 50 Tazobact 3.375 gm In Sodium Chloride 0.9% 50 ml @ 100 mls/hr IV Q6HR [facility] Rx#:[id number] Tube Feeding 600 350 Blood Product 500 Albumin 50 Other 100 Output: Urine 1100 1400 Other: # Bowel Movements 2 1 Stool Characteristics Soft Soft Black Black Active Medications: Current Medications Acetaminophen (Tylenol 650mg Supp) 650 mg RC Q4H PRN PRN Reason: Fever > 101 Stop: 02/08/18 23:09 Albuterol/Ipratropium (Duoneb Neb) 3 ml HHN Q6HRT RYAN Stop: 02/09/18 00:59 Last Admin: 12/15/17 18:43 Dose: 3 ml Amlodipine Besylate (Norvasc) 5 mg GT DAILY RYAN Stop: 02/09/18 08:59 Last Admin: 12/15/17 09:05 Dose: 5 mg Atorvastatin Calcium (Lipitor) 20 mg GT HS RYAN Stop: 02/09/18 20:59 Last Admin: 12/14/17 21:45 Dose: 20 mg Carvedilol (Coreg) 3.125 mg GT BID RYAN Stop: 02/09/18 08:59 Last Admin: 12/15/17 18:39 Dose: 3.125 mg [place] Oil/[place] Balsam/Trypsin (Venelex) 1 appl TP DAILY [facility] Stop: 02/09/18 08:59 Last Admin: 12/15/17 09:51 Dose: 1 appl Dextrose (D50w) 50 ml IVP PRN PRN PRN Reason: Blood Glucose less than 70 Stop: 02/13/18 15:17 Dextrose (Glutose 40%) 18.75 gm PO PRN PRN PRN Reason: Blood Glucose less than 70 Stop: 02/13/18 15:17 Diltiazem HCl (Cardizem) 20 mg IVP Q4HR PRN PRN Reason: HR above 110 Stop: 02/08/18 23:09 Last Admin: 12/12/17 23:15 Dose: 20 mg Fluconazole (Diflucan) 100 mg PO DAILY [facility] Stop: 02/09/18 08:59 Last Admin: 12/15/17 09:08 Dose: 100 mg Folic Acid (Folate) 1 mg GT DAILY [facility] Stop: 02/10/18 08:59 Last Admin: 12/15/17 09:05 Dose: 1 mg Glucagon (Glucagen) 1 mg IM PRN PRN PRN Reason: BS BELOW 60 & NOT TOLERATE PO Stop: 02/08/18 23:14 Glucagon (Glucagen) 1 mg IM PRN PRN PRN Reason: Blood Glucose less than 70 Stop: 02/13/18 15:17 Piperacillin Sod/Tazobactam (Sod 3.375 gm/ Sodium Chloride) 50 mls @ 100 mls/ hr IV Q6HR [facility] Stop: 02/09/18 00:00 Last Infusion: 12/15/17 19:07 Dose: Infused Albumin Human (Albutein 25%) 12.5 gm in 50 mls @ 50 mls/hr IV Q8HR [facility] Stop: 12/16/17 05:59 Last Infusion: 12/15/17 20:12 Dose: Infused Dextrose (D5w) 1,000 mls @ 75 mls/hr IV .[id number] [facility] Stop: 02/13/18 14:34 Insulin Aspart (Novolog Insulin Sliding Scale) 0 units SUBQ Q6HR RYAN PRN Reason: Protocol Stop: 02/09/18 00:00 Last Admin: 12/15/17 18:22 Dose: Not Given Insulin Detemir (Levemir Insulin) 14 units SUBQ BID RYAN PRN Reason: Protocol Stop: 02/09/18 08:59 Last Admin: 12/15/17 19:59 Dose: Not Given Miscellaneous (Probiotic Screen) 1 ea PRN PRN PRN Reason: PROTOCOL Stop: 02/10/18 17:05 Miscellaneous (Vte Chemical Prophylaxis Screen/ Admission) 1 ea PRN PRN PRN Reason: PROTOCOL Stop: 02/13/18 10:23 Morphine Sulfate (Morphine) 1 mg IVP Q4HR PRN PRN Reason: Pain (Severe) Stop: 02/10/18 23:46 Last Admin: 12/14/17 18:10 Dose: 1 mg Neomycin/Polymyxin/Bacitracin (Triple Antibiotic Pkt) 1 pkt TP DAILY [facility] Stop: 02/09/18 08:59 Last Admin: 12/15/17 09:05 Dose: 1 pkt Nystatin (Nystop) 0 units TP BID [facility] Stop: 02/13/18 20:29 Pantoprazole Sodium (Protonix) 40 mg IVP BID [facility] Stop: 02/09/18 08:59 Last Admin: 12/15/17 18:38 Dose: 40 mg Potassium Phosphate (K Phos) 1,000 mg PO BID [facility] Stop: 02/12/18 12:29 Last Admin: 12/15/17 19:17 Dose: 1,000 mg General: weak, demented HEENT: NC/AT, PERRLA, EOMI, anicteric sclerae, throat clear Neck: Supple, No JVD, No thyromegaly, +2 carotid pulse wo bruit, No LAD, + JVD Lungs: CTAB Cardiovascular: RRR, Normal S1, Normal S2, without murmur Abdomen: non-tender, non-distended Extremities: clear Neurological: no change - Procedures Procedures: Procedures Procedure Code Date BLOOD TRANSFUSION SERVICE 95391 12/10/17 EXCISION OF STOMACH, ENDO, DIAGN [id number] 11/15/17 INSERT TUNNELED CV CATH 18822 11/15/17 INSERTION OF FEEDING DEVICE INTO STOMACH, ENDO [id number] 11/15/17 INSERTION OF INFUSION DEV INTO R SUBCLAV VEIN, PERC APPROACH [id number] 11/15/17 PERFORMANCE OF URINARY FILTRATION, <6 HRS/DAY [id number] 11/15/17 REMOVAL OF INFUSION DEVICE FROM UPPER VEIN, PERC APPROACH [id number] 11/15/17 TRANSFUSE NONAUT RED BLOOD CELLS IN PERIPH VEIN, PERC 61410G3 12/10/17 ULTRASONOGRAPHY OF RIGHT SUBCLAVIAN VEIN, GUIDANCE [id number] 11/15/17 Internal Medicine Assmt/Plan - Assessment Assessment: 1.ASPIRATION PNEUMONIA. 2.SEPSIS. 3.ANEMIA. 4.DEHYDRATION 5.HEMATUREA - Plan Plan: CONTINUE ON CURRENT MEDICATION AND DIET.HE IS SCHEDUALED FOR EGD IN AM. Nutritional Asmnt/Malnutr-PDOC - Dietary Evaluation Malnutrition Findings (Please click <Entered> for more info): Nutritional Asmnt/Malnutrition Start: 12/13/17 16: 00 Text: Status: Complete Freq: Document 12/13/17 16:00 COSMO (Rec: 12/13/17 16:22 LCHENG [id number]) Nutritional Asmnt/Malnutrition Patient General Information Nutritional Screening High Risk Consult Diagnosis sepsis, PNA, rsepiratory failure, PENNY Pertinent Medical Hx/Surgical Hx DM, HTN, dementia, psychotic dysphagia Subjective Information Pt seen resting in bed at time of visit. TF was off at this time. Spoke with RN, RN reported pt tolerated TF well. Current Diet Order/ Nutrition Support novosource 50ml x 20hr, providing 2000kcal, 91g protein Pertinent Medications D5w, folate, glucagen, novolog , levemir, triple antibiotic pkt, protonix, piperacillin Pertinent Labs 2/5 Na 158, K 3.6, Cl 127, BUN 65, Cr 1.3, Glucose 240, POC 170-249 Nutritional Hx/Data Height 1.85 m Height (Calculated Centimeters) 185.4 Current Weight (lbs) 68.039 kg Weight (Calculated Kilograms) 68.0 Weight (Calculated Grams) 49638.9 [place] Body Weight 184 % [place] Body Weight 82 Body Mass Index (BMI) 19.8 Weight Status Approriate GI Symptoms GI Symptoms None Last BM 2/5 Difficult in: None Skin Integrity/Comment: decubitus ulceration to right buttocks, bruise to RUE, maceration to scrotum Estimated Nutritional Goals BEE in Kcals: Using Current wt Calories/Kcals/Kg 27-32 Kcals Calculated 5378-5840 Protein: Using Current wt Protein g/k.2-1.4 monitor renal labs Protein Calculated 81-95 Fluid: ml 1836-2176ml (1ml/kcal) Nutritional Problem 1. Problem Problem altered nutrition related lab values Etiology dx of PENNY, hx of DM Signs/Symptoms: Na 158, BUN 65, Glucose 240, POC 170-249 Malnutrition Alert Protein-Calorie Malnutrition N/A Is there a minimum of two criteria No selected? Query Text:Check all the applicable criteria. A minimum of two criteria are recommended for diagnosis of either severe or non-severe malnutrition. Intervention/Recommendation Comments 1. Continue with current TF regimen. It provides 2000kcal, 91g protein, meeting 100% of nutritional needs 2. Monitor TF rate, tolerance, wt weekly, skin integrity and labs 3. F/U as moderate risk in 3-5 days, 12/16-12/18 Expected Outcomes/Goals Expected Outcomes/Goals 1. Pt to meet at least 75% of nutritional needs via nutrition support with tolerance 2. Wt stability, skin to remain intact, labs to approach WNL.
[2017-12-15] MEDS: Atorvastatin Calcium 10 MG TAB GT SCH (21:14)
--- NOTE | 2017-12-15 21:57 | Consultation ---
DATE OF CONSULTATION: 12/15/2017 REASON FOR CONSULTATION: GI bleed. HISTORY OF PRESENT ILLNESS: This consult was obtained through the request of Dr. Frost for this 77-year-old with multiple medical problems including dementia, hypertension, diabetes, psychosis, dysphagia, status post G-tube placement, who was admitted to the hospital for altered level of consciousness, found to have pneumonia. Then, yesterday had melena and then, he dropped his hemoglobin, so GI consult was called in for further evaluation. Unfortunately, the patient is not responsive, not able to provide any history. He required blood transfusion in the beginning and again today dropped his hemoglobin. PAST MEDICAL HISTORY: Diabetes, hypertension, psychosis, dementia, and dysphagia. PAST SURGICAL HISTORY: Not known. He has an endoscopic G-tube placement. SOCIAL HISTORY: At this time, the patient is nonsmoker and nonalcoholic, non-IV drug abuser. FAMILY HISTORY: Noncontributory. ALLERGIES: LISINOPRIL. MEDICATIONS: The patient is on Tylenol, albumin, DuoNeb, Norvasc, Lipitor, Coreg, diltiazem, Diflucan, folate, glucagon, insulin Levemir, probiotic, morphine, Protonix, and Zosyn. REVIEW OF SYSTEMS: Unobtainable. PHYSICAL EXAMINATION: GENERAL: The patient is awake, responsive. VITAL SIGNS: Blood pressure is 138/84, heart rate 92, respiratory rate is 20, and temperature is 99.2. HEAD AND NECK: Pupils reactive to light. Extraocular muscles could not be tested. Oral cavity, no lesion. Neck supple. CHEST: Good air entry. LUNGS: Clear to auscultation. CARDIOVASCULAR: Regular rate and rhythm. ABDOMEN: Soft, positive bowel sounds. There is a G-tube. Bowel sounds are present. EXTREMITIES: Lower extremities, no edema. CENTRAL NERVOUS SYSTEM: Unable to evaluate. LABORATORY DATA: Hemoglobin 7.7, dropped from 8.9 yesterday; hematocrit 22.4; normal MCV; normal RDW; and platelets low at 129. PT is normal at 11.9 seconds. Potassium is 3.1. Sodium was 155, BUN and creatinine are 43 and 1.1. Liver enzymes slightly elevated with AST 78 and ALT 71. IMPRESSION: A 77-year-old with gastrointestinal bleed, anemia, and elevation of liver enzymes. ASSESSMENT AND PLAN: 1. Gastrointestinal bleed, most probably peptic ulcer disease, could be Anita-Esteves tear, could be erosive esophagitis. Recommendations; a. Continue his PPI. b. Endoscopy in the morning. c. Further recommendations to follow. 2. Anemia, most likely multifactorial including chronic disease and GI blood loss as well, so as stated above, we will do an EGD. We will monitor H and H. We will transfuse as needed and then further recommendations to follow. 3. Abnormal liver enzymes. We will recheck in the morning and then, if needed further workup, but we will start with an abdominal ultrasound for now and then further recommendations to follow. 4. Other medical problems such as diabetes, hypertension as per Dr. Frost. Thank you, Dr. Frost for allowing me to participate in the care of the patient. If you have any further questions, please let me know. JOB# [id number]
[2017-12-16] MEDS: INSULIN ASPART SLIDING SCALE 100 UNITS/ML UNIT SUBQ SCH ×4 (00:21→18:14)
[2017-12-16] MEDS: Albuterol/Ipratropium Neb 3 ML AERS HHN SCH ×4 (00:51→18:42)
[2017-12-16 02:38] LABS: URINE MICROSCOPIC INDICATED? YES; URINE SOURCE FOLEY PORT
[2017-12-16 04:21] LABS: URINE BILIRUBIN NEGATIVE (NEGATIVE); URINE BLOOD LARGE (NEGATIVE); URINE KETONE NEGATIVE (NEGATIVE); URINE LEUKOCYTE ESTERASE NEGATIVE (NEGATIVE); URINE NITRATE NEGATIVE (NEGATIVE); URINE PROTEIN 30 mg/dL (NEGATIVE); URINE UROBILINOGEN 0.2 E.U./dL (0.2 - 1.0)
[2017-12-16 04:29] LABS: URINE CLARITY CLEAR (CLEAR); URINE COLOR YELLOW
[2017-12-16 04:30] LABS: URINE GLUCOSE (UA) NEGATIVE (NEGATIVE)
[2017-12-16 04:31] LABS: URINE BACTERIA OCCASIONAL /hpf (NONE SEEN); URINE EPITHELIAL CELLS RARE /lpf (FEW)
[2017-12-16] MEDS: Albumin 25% 12.5gm/50mL 12.5 GM/50 ML BTL IV SCH (05:50)
[2017-12-16 07:09] LABS: % BASOPHILS 0.3 % (0.0-2.0); % EOSINOPHILS 1.6 % (0.0-5.0); % MONOCYTES 4.4 % (2.0-10.0); % NEUTROPHILS 79.7 % (40.0-80.0); EOSINOPHILE ABSOLUTE 0.1 Th/cmm (0.1-0.4); HEMOGLOBIN 10.6 gm/dL (12-16); LYMPHOCYTE ABSOLUTE 0.9 Th/cmm (1.5-3.0); MEAN CORPUSCULAR HEMOGLOBIN 31.5 pg (27.0-31.0); MEAN CORPUSCULAR HGB CONC 33.8 pg (28.0-36.0); MEAN PLATELET VOLUME 9.5 fl; MONOCYTE ABSOLUTE 0.3 Th/cmm (0.3-1.0); NEUTROPHILE ABSOLUTE 5.3 Th/cmm (1.8-8.0); PLATELET COUNT 145 Th/cmm (150-400); RED BLOOD COUNT 3.35 Mil/cmm (3.80-5.80); RED CELL DISTRIBUTION WIDTH 14.7 % (11.5-20.0); WHITE BLOOD COUNT 6.6 Th/cmm (4.8-10.8)
[2017-12-16 07:14] LABS: HEMATOCRIT 31.2 % (41.0-60)
[2017-12-16 07:44] LABS: ALBUMIN 2.4 gm/dL (4.2-5.5); ALKALINE PHOSPHATASE 169 U/L (34-104); ANION GAP 9.1 (7.0-16.0); BILIRUBIN,TOTAL 0.5 mg/dL (0.3-1.0); BUN - UREA NITROGEN 34 mg/dL (7-25); CALCIUM SERUM 8.3 mg/dL (8.6-10.3); CARBON DIOXIDE 24.2 mEq/L (21.0-31.0); CHLORIDE 122 mEq/L (98-107); GLUCOSE 196 mg/dL (70-105); PHOSPHOROUS 2.7 mg/dL (2.5-5.0); POTASSIUM SERUM 3.3 mEq/L (3.5-5.1); SGOT 96 U/L (13-39); SGPT/ALT 95 U/L (7-52); SODIUM SERUM 152 mEq/L (136-145); TOTAL PROTEIN,SERUM 4.7 gm/dL (6.0-8.3)
[2017-12-16 07:59] LABS: CREATININE - SERUM 0.8 mg/dL (0.7-1.3)
--- NOTE | 2017-12-16 08:10 | Diagnostic Imaging Report ---
Exam: Ultrasound summation of the abdomen HISTORY: Abnormal liver function tests. Findings. Real-time ultrasound examination of the abdomen performed multiple planes. The study demonstrates normal just liver parenchyma. Right pleural effusion is noted. The gallbladder is distended up to 7 cm in the longest diameter with thickening gallbladder wall. There is no evidence of pericholecystic fluid collection. HIDA scan might be helpful Common bile duct measures 3 mm. There is no evidence for cholelithiasis. Pancreas difficult to visualize. The kidneys demonstrate no evidence of obstructive uropathy or nephrolithiasis. The right kidney measures 10.1 x 5.2 x 5.2 cm. There is evidence for nonobstructing renal calculi. Left kidney measures 11.6 x 5.8 x 5 0.6 cm Small left pleural effusions present. No free fluid visualized. IMPRESSION: 1. Distended gallbladder, thickening gallbladder wall. 2. Nonobstructing renal right calculi. 3. Bilateral small pleural effusions.
[2017-12-16] MEDS: NYSTATIN 100000 UNITS/GM POWD TP SCH ×2 (09:28→16:02)
[2017-12-16] MEDS: Triple Antibiotic 0.94 gm Pkt TP SCH (09:37)
[2017-12-16] MEDS: Venelex 60gm Tube TP SCH (09:37)
[2017-12-16] MEDS: Insulin Detemir 100 units/mL 10mL Vial SUBQ SCH ×2 (09:38→18:15)
--- NOTE | 2017-12-16 13:50 | General Progress Note ---
Subjective - Review of Systems Service Date: 12/16/17 Subjective: sleeping, comfortable Objective - Results Result Diagrams: 12/16/17 06:50 12/16/17 06:50 Recent Labs: Laboratory Last Values WBC 6.6 Th/cmm (4.8-10.8) 12/16/17 06:50 Corrected WBC (auto) 4.4 Th/cmm 12/12/17 23:59 RBC 3.35 Mil/cmm (3.80-5.80) L 12/16/17 06:50 Hgb 10.6 gm/dL (12-16) L 12/16/17 06:50 Hct 31.2 % (41.0-60) L D 12/16/17 06:50 MCV 93.0 fl (80-99) 12/16/17 06:50 MCH 31.5 pg (27.0-31.0) H 12/16/17 06:50 MCHC Differential 33.8 pg (28.0-36.0) 12/16/17 06:50 RDW 14.7 % (11.5-20.0) 12/16/17 06:50 Plt Count 145 Th/cmm (150-400) L 12/16/17 06:50 MPV 9.5 fl 12/16/17 06:50 Neutrophils % 79.7 % (40.0-80.0) 12/16/17 06:50 Band Neutrophils % 10 % (0-10) 12/12/17 23:59 Lymphocytes % 14.0 % (20.0-50.0) L 12/16/17 06:50 Monocytes % 4.4 % (2.0-10.0) 12/16/17 06:50 Eosinophils % 1.6 % (0.0-5.0) 12/16/17 06:50 Basophils % 0.3 % (0.0-2.0) 12/16/17 06:50 Neutrophils (Manual) 60 % (40-80) 12/12/17 23:59 Lymphocytes 20 % (20-50) 12/12/17 23:59 Monocytes 6 % (2-10) 12/12/17 23:59 Eosinophils 4 % (0-5) 12/12/17 23:59 Nucleated RBCs 6.0 % (0-0) H 12/12/17 23:59 Platelet Estimate SLIGHT DECREASED (NORMAL) 12/12/17 23:59 Platelet Morphology GIANT PLATELETS SEEN (NORMAL) 12/11/17 17:58 Polychromasia 1+ 12/11/17 17:58 Anisocytosis 1+ 12/11/17 17:58 RBC Morph Micro Appear ABNORMAL (NORMAL) 12/11/17 17:58 PT 11.9 SECONDS (9.5-11.5) H 12/15/17 06:20 INR 1.13 (0.5-1.4) 12/15/17 06:20 PTT (Actin FS) 26.9 SECONDS (26.0-38.0) 12/15/17 06:20 Specimen Source Arterial 12/10/17 14:05 Sample Site Left Radial 12/10/17 14:05 pH 7.51 (7.35-7.45) H 12/10/17 14:05 pCO2 36.0 mmHg (35.0-45.0) 12/10/17 14:05 pO2 102.0 mmHg (80.0-100.0) H 12/10/17 14:05 HCO3 29.2 mEq/L (20.0-26.0) H 12/10/17 14:05 Base Excess 5.5 mEq/L (-3.0-3.0) H 12/10/17 14:05 O2 Saturation 98.0 % (92.0-100.0) 12/10/17 14:05 Mario Test YES 12/10/17 14:05 Vent Rate NA 12/10/17 14:05 Inspired O2 50 12/10/17 14:05 Tidal Volume NA 12/10/17 14:05 PEEP NA 12/10/17 14:05 Pressure (ins/psv/peep) NA 12/10/17 14:05 Critical Value E.PICHARDO 12/10/17 14:05 Sodium 152 mEq/L (136-145) H 12/16/17 06:50 Potassium 3.3 mEq/L (3.5-5.1) L 12/16/17 06:50 Chloride 122 mEq/L (98-107) H 12/16/17 06:50 Carbon Dioxide 24.2 mEq/L (21.0-31.0) 12/16/17 06:50 Anion Gap 9.1 (7.0-16.0) 12/16/17 06:50 BUN 34 mg/dL (7-25) H 12/16/17 06:50 Creatinine 0.8 mg/dL (0.7-1.3) 12/16/17 06:50 Est GFR ( Amer) TNP 12/16/17 06:50 Est GFR (Non-Af Amer) TNP 12/16/17 06:50 BUN/Creatinine Ratio 42.5 12/16/17 06:50 Glucose 196 mg/dL (70-105) H 12/16/17 06:50 POC Glucose 164 MG/DL (70 - 105) H 12/16/17 12:05 Hemoglobin A1c % 6.4 % (4.0-6.0) H 12/11/17 05:30 Whole Bld Lactic Acid 1.12 mmol/L (0.60-1.99) 12/11/17 07:37 Calcium 8.3 mg/dL (8.6-10.3) L 12/16/17 06:50 Phosphorus 2.7 mg/dL (2.5-5.0) 12/16/17 06:50 Magnesium 2.3 mg/dL (1.9-2.7) 12/13/17 07:45 Iron 26 ug/dL (38-169) L 12/11/17 05:30 TIBC 161 ug/dL (250-450) L 12/11/17 05:30 Iron Saturation 16 % (15-55) 12/11/17 05:30 Unsaturated IBC 135 ug/dL (111-343) 12/11/17 05:30 Ferritin 513 ng/mL (30-400) H 12/11/17 05:30 Total Bilirubin 0.5 mg/dL (0.3-1.0) 12/16/17 06:50 AST 96 U/L (13-39) H 12/16/17 06:50 ALT 95 U/L (7-52) H 12/16/17 06:50 Alkaline Phosphatase 169 U/L (34-104) H 12/16/17 06:50 Troponin I 0.44 ng/mL (0.01-0.05) H* D 12/10/17 14:06 B-Natriuretic Peptide 532.0 pg/mL (5.0-100.0) H 12/10/17 14:06 Total Protein 4.7 gm/dL (6.0-8.3) L 12/16/17 06:50 Albumin 2.4 gm/dL (4.2-5.5) L 12/16/17 06:50 Globulin 2.3 gm/dL 12/16/17 06:50 Albumin/Globulin Ratio 1.0 (1.0-1.8) 12/16/17 06:50 Vitamin B12 1620 pg/mL (232-1245) H 12/11/17 05:30 Folic Acid >20.0 ng/mL (>3.0) 12/11/17 05:30 Urine Source [place] 12/15/17 16:30 Urine Color YELLOW 12/15/17 16:30 Urine Clarity CLEAR (CLEAR) 12/15/17 16:30 Urine pH 6.0 (4.6 - 8.0) 12/15/17 16:30 Ur Specific [place] 1.015 (1.005-1.030) 12/15/17 16:30 Urine Protein 30 mg/dL (NEGATIVE) H 12/15/17 16:30 Urine Glucose (UA) NEGATIVE mg/dL (NEGATIVE) 12/15/17 16:30 Urine Ketones NEGATIVE mg/dL (NEGATIVE) 12/15/17 16:30 Urine Blood LARGE (NEGATIVE) H 12/15/17 16:30 Urine Nitrate NEGATIVE (NEGATIVE) 12/15/17 16:30 Urine Bilirubin NEGATIVE (NEGATIVE) 12/15/17 16:30 Urine Urobilinogen 0.2 E.U./dL (0.2 - 1.0) 12/15/17 16:30 Ur Leukocyte Esterase NEGATIVE (NEGATIVE) 12/15/17 16:30 Urine RBC 2-5 /hpf (0-5) H 12/15/17 16:30 Urine WBC 2-5 /hpf (0-5) 12/15/17 16:30 Ur Epithelial Cells RARE /lpf (FEW) 12/15/17 16:30 Urine Bacteria OCCASIONAL /hpf (NONE SEEN) 12/15/17 16:30 Stool Occult Blood POSITIVE (NEGATIVE) H 12/13/17 13:20 Blood Type A POSITIVE 12/15/17 06:20 Antibody Screen NEGATIVE 12/15/17 06:20 Crossmatch See Detail 12/15/17 06:20 - Physical Exam Vitals and I&O: Vital Signs Temp 97 F 02/08/18 12:00 Pulse 83 12/16/17 13:44 Resp 12 12/16/17 13:44 BP 144/83 12/16/17 12:00 Pulse Ox 99 12/16/17 13:44 Intake & Output 12/15/17 12/16/17 12/16/17 18:59 06:59 18:59 Intake Total 8798 072.7206 450 Output Total 1400 752 Balance -914 852.9178 -302 Weight (lbs) 73.936 kg 73.936 kg Intake: Intake, IV Amount 456.6667 100 Albumin 25% 12.5gm/50mL 100 50 12.5 gm In 50 ml @ 50 mls /hr IV Q8HR [facility] Rx#: [id number] Piperacillin Sodium/ 100 50 Tazobact 3.375 gm In Sodium Chloride 0.9% 50 ml @ 100 mls/hr IV Q6HR [facility] Rx#:[id number] Potassium Phosphate 20 256.6667 mmole In Sodium Chloride 0.9% 250 ml @ 42.5 mls/hr IV X1 ONE Rx#:[id number] Tube Feeding 350 250 Blood Product 500 Albumin 50 100 Other 100 Output: Urine 1400 750 Stool 2 Other: # Bowel Movements 1 Stool Characteristics Soft Soft Black Black Active Medications: Current Medications Acetaminophen (Tylenol 650mg Supp) 650 mg RC Q4H PRN PRN Reason: Fever > 101 Stop: 02/08/18 23:09 Albuterol/Ipratropium (Duoneb Neb) 3 ml HHN Q6HRT [facility] Stop: 02/09/18 00:59 Last Admin: 12/16/17 13:44 Dose: 3 ml Amlodipine Besylate (Norvasc) 5 mg GT DAILY [facility] Stop: 02/09/18 08:59 Last Admin: 12/16/17 09:36 Dose: 5 mg Atorvastatin Calcium (Lipitor) 20 mg GT HS [facility] Stop: 02/09/18 20:59 Last Admin: 12/15/17 21:14 Dose: 20 mg Carvedilol (Coreg) 3.125 mg GT BID [facility] Stop: 02/09/18 08:59 Last Admin: 12/16/17 09:27 Dose: 3.125 mg [place] Oil/Congolese Balsam/Trypsin (Venelex) 1 appl TP DAILY [facility] Stop: 02/09/18 08:59 Last Admin: 12/16/17 09:37 Dose: 1 appl Dextrose (D50w) 50 ml IVP PRN PRN PRN Reason: Blood Glucose less than 70 Stop: 02/13/18 15:17 Dextrose (Glutose 40%) 18.75 gm PO PRN PRN PRN Reason: Blood Glucose less than 70 Stop: 02/13/18 15:17 Diltiazem HCl (Cardizem) 20 mg IVP Q4HR PRN PRN Reason: HR above 110 Stop: 02/08/18 23:09 Last Admin: 12/12/17 23:15 Dose: 20 mg Fluconazole (Diflucan) 100 mg PO DAILY [facility] Stop: 02/09/18 08:59 Last Admin: 12/16/17 09:27 Dose: 100 mg Folic Acid (Folate) 1 mg GT DAILY [facility] Stop: 02/10/18 08:59 Last Admin: 12/16/17 09:27 Dose: 1 mg Glucagon (Glucagen) 1 mg IM PRN PRN PRN Reason: Blood Glucose less than 70 Stop: 02/13/18 15:17 Piperacillin Sod/Tazobactam (Sod 3.375 gm/ Sodium Chloride) 50 mls @ 100 mls/ hr IV Q6HR [facility] Stop: 02/09/18 00:00 Last Admin: 12/16/17 12:24 Dose: 100 mls/hr Dextrose (D5w) 1,000 mls @ 75 mls/hr IV .[id number] [facility] Stop: 02/13/18 14:34 Insulin Aspart (Novolog Insulin Sliding Scale) 0 units SUBQ Q6HR [facility] PRN Reason: Protocol Stop: 02/09/18 00:00 Last Admin: 12/16/17 12:24 Dose: Not Given Insulin Detemir (Levemir Insulin) 14 units SUBQ BID [facility] PRN Reason: Protocol Stop: 02/09/18 08:59 Last Admin: 12/16/17 09:38 Dose: 14 units Miscellaneous (Probiotic Screen) 1 ea MC PRN PRN PRN Reason: PROTOCOL Stop: 02/10/18 17:05 Miscellaneous (Vte Chemical Prophylaxis Screen/ Admission) 1 ea MC PRN PRN PRN Reason: PROTOCOL Stop: 02/13/18 10:23 Morphine Sulfate (Morphine) 1 mg IVP Q4HR PRN PRN Reason: Pain (Severe) Stop: 02/10/18 23:46 Last Admin: 12/14/17 18:10 Dose: 1 mg Neomycin/Polymyxin/Bacitracin (Triple Antibiotic Pkt) 1 pkt TP DAILY [facility] Stop: 02/09/18 08:59 Last Admin: 12/16/17 09:37 Dose: 1 pkt Nystatin (Nystop) 0 units TP BID [facility] Stop: 02/13/18 20:29 Last Admin: 12/16/17 09:28 Dose: 100,000 units Pantoprazole Sodium (Protonix) 40 mg IVP BID [facility] Stop: 02/09/18 08:59 Last Admin: 12/16/17 09:37 Dose: 40 mg Potassium Phosphate (K Phos) 1,000 mg PO BID [facility] Stop: 02/12/18 12:29 Last Admin: 12/16/17 09:27 Dose: 1,000 mg General: No acute distress HEENT: PERRLA, EOMI Neck: Supple, +2 carotid pulse wo bruit Cardiovascular: Regular rate, Normal S1, Normal S2 Lungs: Other (decreased BS) Abdomen: Bowel sounds, Soft Extremities: Other (upper ext), no Edema Neurological: Sensation intact Skin: no Rash Psych/Mental Status: Mood NL - Procedures Procedures: Procedures Procedure Code Date BLOOD TRANSFUSION SERVICE 12775 12/10/17 EXCISION OF STOMACH, ENDO, DIAGN 2PH67GH 11/15/17 INSERT TUNNELED CV CATH 62397 11/15/17 INSERTION OF FEEDING DEVICE INTO STOMACH, ENDO [id number] 11/15/17 INSERTION OF INFUSION DEV INTO R SUBCLAV VEIN, PERC APPROACH 88S501S 11/15/17 PERFORMANCE OF URINARY FILTRATION, <6 HRS/DAY [id number] 11/15/17 REMOVAL OF INFUSION DEVICE FROM UPPER VEIN, PERC APPROACH 26KI83Y 11/15/17 TRANSFUSE NONAUT RED BLOOD CELLS IN PERIPH VEIN, PERC 02469F7 12/10/17 ULTRASONOGRAPHY OF RIGHT SUBCLAVIAN VEIN, GUIDANCE [id number] 11/15/17 Assessment/Plan - Problem List Patient Problems: All Active Problems SEVERE RESPIRATORY DISTRESS (Acute) - Assessment Assessment: PENNY Hypernatremia CVA Type 2 DM Ess Htn Thrombocytopenia Severe Anemia B/L Scrotal Hydrocele Left HAP - Plan Plan: Lab - Result Diagrams 12/13/17 07:45 12/13/17 07:45 Current Medications Acetaminophen (Tylenol 650mg Supp) 650 mg RC Q4H PRN PRN Reason: Fever > 101 Stop: 02/08/18 23:09 Albuterol/Ipratropium (Duoneb Neb) 3 ml HHN Q6HRT [facility] Stop: 02/09/18 00:59 Last Admin: 12/13/17 12:42 Dose: 3 ml Amlodipine Besylate (Norvasc) 5 mg GT DAILY [facility] Stop: 02/09/18 08:59 Last Admin: 12/13/17 08:52 Dose: 5 mg Atorvastatin Calcium (Lipitor) 20 mg GT HS [facility] Stop: 02/09/18 20:59 Last Admin: 12/12/17 21:41 Dose: 20 mg Carvedilol (Coreg) 3.125 mg GT BID [facility] Stop: 02/09/18 08:59 Last Admin: 12/13/17 08:52 Dose: 3.125 mg Lux[place] Oil/Congolese Balsam/Trypsin (Venelex) 1 appl TP DAILY [facility] Stop: 02/09/18 08:59 Last Admin: 12/13/17 08:55 Dose: 1 appl Diltiazem HCl (Cardizem) 20 mg IVP Q4HR PRN PRN Reason: HR above 110 Stop: 02/08/18 23:09 Last Admin: 12/12/17 23:15 Dose: 20 mg Fluconazole (Diflucan) 100 mg PO DAILY [facility] Stop: 02/09/18 08:59 Last Admin: 12/13/17 08:51 Dose: 100 mg Folic Acid (Folate) 1 mg GT DAILY [facility] Stop: 02/10/18 08:59 Last Admin: 12/13/17 08:52 Dose: 1 mg Glucagon (Glucagen) 1 mg IM PRN PRN PRN Reason: BS BELOW 60 & NOT TOLERATE PO Stop: 02/08/18 23:14 Piperacillin Sod/Tazobactam (Sod 3.375 gm/ Sodium Chloride) 50 mls @ 100 mls/ hr IV Q6HR [facility] Stop: 02/09/18 00:00 Last Admin: 12/13/17 12:49 Dose: 100 mls/hr Dextrose (D5w) 1,000 mls @ 50 mls/hr IV .Q20H [facility] Stop: 02/10/18 08:25 Last Admin: 12/13/17 08:53 Dose: 50 mls/hr Insulin Aspart (Novolog Insulin Sliding Scale) 0 units SUBQ Q6HR [facility] PRN Reason: Protocol Stop: 02/09/18 00:00 Last Admin: 12/13/17 12:49 Dose: 2 units Insulin Detemir (Levemir Insulin) 14 units SUBQ BID [facility] PRN Reason: Protocol Stop: 02/09/18 08:59 Last Admin: 12/13/17 08:54 Dose: 14 units Miscellaneous (Probiotic Screen) 1 ea MC PRN PRN PRN Reason: PROTOCOL Stop: 02/10/18 17:05 Morphine Sulfate (Morphine) 1 mg IVP Q4HR PRN PRN Reason: Pain (Severe) Stop: 02/10/18 23:46 Last Admin: 12/13/17 01:43 Dose: 1 mg Neomycin/Polymyxin/Bacitracin (Triple Antibiotic Pkt) 1 pkt TP DAILY [facility] Stop: 02/09/18 08:59 Last Admin: 12/13/17 08:52 Dose: 1 pkt Pantoprazole Sodium (Protonix) 40 mg IVP BID [facility] Stop: 02/09/18 08:59 Last Admin: 12/13/17 08:53 Dose: 40 mg Lab - Result Diagrams 12/16/17 06:50 12/16/17 06:50 Na & BUN gradually improving Has mild upper ext edema scrotal US B/L Hydrocele On H20 flushes,increase D5W to 70 ml/hr Duplex scan no RUE DVT CXR left consolidation replace K, PO4 Nutritional Asmnt/Malnutr-PDOC - Dietary Evaluation Malnutrition Findings (Please click <Entered> for more info): Nutritional Asmnt/Malnutrition Start: 12/13/17 16: 00 Text: Status: Complete Freq: Document 12/13/17 16:00 LCCOSMOG (Rec: 12/13/17 16:22 [email or web address] [email or web address]) Nutritional Asmnt/Malnutrition Patient General Information Nutritional Screening High Risk Consult Diagnosis sepsis, PNA, rsepiratory failure, PENYN Pertinent Medical Hx/Surgical Hx DM, HTN, dementia, psychotic dysphagia Subjective Information Pt seen resting in bed at time of visit. TF was off at this time. Spoke with RN, RN reported pt tolerated TF well. Current Diet Order/ Nutrition Support novosource 50ml x 20hr, providing 2000kcal, 91g protein Pertinent Medications D5w, folate, glucagen, novolog , levemir, triple antibiotic pkt, protonix, piperacillin Pertinent Labs 2/5 Na 158, K 3.6, Cl 127, BUN 65, Cr 1.3, Glucose 240, POC 170-249 Nutritional Hx/Data Height 1.85 m Height (Calculated Centimeters) 185.4 Current Weight (lbs) 68.039 kg Weight (Calculated Kilograms) 68.0 Weight (Calculated Grams) 13748.9 Herman Body Weight 184 % Herman Body Weight 82 Body Mass Index (BMI) 19.8 Weight Status Approriate GI Symptoms GI Symptoms None Last BM 2/5 Difficult in: None Skin Integrity/Comment: decubitus ulceration to right buttocks, bruise to RUE, maceration to scrotum Estimated Nutritional Goals BEE in Kcals: Using Current wt Calories/Kcals/Kg 27-32 Kcals Calculated 6760-1952 Protein: Using Current wt Protein g/k.2-1.4 monitor renal labs Protein Calculated 81-95 Fluid: ml 1836-2176ml (1ml/kcal) Nutritional Problem 1. Problem Problem altered nutrition related lab values Etiology dx of PENNY, hx of DM Signs/Symptoms: Na 158, BUN 65, Glucose 240, POC 170-249 Malnutrition Alert Protein-Calorie Malnutrition N/A Is there a minimum of two criteria No selected? Query Text:Check all the applicable criteria. A minimum of two criteria are recommended for diagnosis of either severe or non-severe malnutrition. Intervention/Recommendation Comments 1. Continue with current TF regimen. It provides 2000kcal, 91g protein, meeting 100% of nutritional needs 2. Monitor TF rate, tolerance, wt weekly, skin integrity and labs 3. F/U as moderate risk in 3-5 days, 12/16-12/18 Expected Outcomes/Goals Expected Outcomes/Goals 1. Pt to meet at least 75% of nutritional needs via nutrition support with tolerance 2. Wt stability, skin to remain intact, labs to approach WNL.
[2017-12-16] MEDS ORDERED: KCL 20mEq/100mL Premix 20 MEQ/100 ML PIGGYBACK IV ONE (13:51)
[2017-12-16] MEDS ORDERED: Propofol 10 mg/mL 20mL Vial **SURGERY USE ONLY IV ONE (14:05)
[2017-12-16] MEDS ORDERED: GLUCAGON HCl 1 MG KIT IM ONE (14:05)
[2017-12-16] MEDS: Dextrose 5% 1,000 ML IV SCH (15:45)
--- NOTE | 2017-12-16 18:02 | Internal Medicine Prog Note ---
Internal Medicine Subjective - Subjective Service Date: 12/16/17 Patient seen and examined:: with staff (he had ehd and colonoscopy.a bleeder was found and cautarized.) Patient is:: non-verbal, in bed, confused Per staff patient has:: no adverse event Internal Medicine Objective - Results Result Diagrams: 12/16/17 06:50 12/16/17 06:50 Recent Labs: Laboratory Last Values WBC 6.6 Th/cmm (4.8-10.8) 12/16/17 06:50 Corrected WBC (auto) 4.4 Th/cmm 12/12/17 23:59 RBC 3.35 Mil/cmm (3.80-5.80) L 12/16/17 06:50 Hgb 10.6 gm/dL (12-16) L 12/16/17 06:50 Hct 31.2 % (41.0-60) L D 12/16/17 06:50 MCV 93.0 fl (80-99) 12/16/17 06:50 MCH 31.5 pg (27.0-31.0) H 12/16/17 06:50 MCHC Differential 33.8 pg (28.0-36.0) 12/16/17 06:50 RDW 14.7 % (11.5-20.0) 12/16/17 06:50 Plt Count 145 Th/cmm (150-400) L 12/16/17 06:50 MPV 9.5 fl 12/16/17 06:50 Neutrophils % 79.7 % (40.0-80.0) 12/16/17 06:50 Band Neutrophils % 10 % (0-10) 12/12/17 23:59 Lymphocytes % 14.0 % (20.0-50.0) L 12/16/17 06:50 Monocytes % 4.4 % (2.0-10.0) 12/16/17 06:50 Eosinophils % 1.6 % (0.0-5.0) 12/16/17 06:50 Basophils % 0.3 % (0.0-2.0) 12/16/17 06:50 Neutrophils (Manual) 60 % (40-80) 12/12/17 23:59 Lymphocytes 20 % (20-50) 12/12/17 23:59 Monocytes 6 % (2-10) 12/12/17 23:59 Eosinophils 4 % (0-5) 12/12/17 23:59 Nucleated RBCs 6.0 % (0-0) H 12/12/17 23:59 Platelet Estimate SLIGHT DECREASED (NORMAL) 12/12/17 23:59 Platelet Morphology GIANT PLATELETS SEEN (NORMAL) 12/11/17 17:58 Polychromasia 1+ 12/11/17 17:58 Anisocytosis 1+ 12/11/17 17:58 RBC Morph Micro Appear ABNORMAL (NORMAL) 12/11/17 17:58 PT 11.9 SECONDS (9.5-11.5) H 12/15/17 06:20 INR 1.13 (0.5-1.4) 12/15/17 06:20 PTT (Actin FS) 26.9 SECONDS (26.0-38.0) 12/15/17 06:20 Specimen Source Arterial 12/10/17 14:05 Sample Site Left Radial 12/10/17 14:05 pH 7.51 (7.35-7.45) H 12/10/17 14:05 pCO2 36.0 mmHg (35.0-45.0) 12/10/17 14:05 pO2 102.0 mmHg (80.0-100.0) H 12/10/17 14:05 HCO3 29.2 mEq/L (20.0-26.0) H 12/10/17 14:05 Base Excess 5.5 mEq/L (-3.0-3.0) H 12/10/17 14:05 O2 Saturation 98.0 % (92.0-100.0) 12/10/17 14:05 Mario Test YES 12/10/17 14:05 Vent Rate NA 12/10/17 14:05 Inspired O2 50 12/10/17 14:05 Tidal Volume NA 12/10/17 14:05 PEEP NA 12/10/17 14:05 Pressure (ins/psv/peep) NA 12/10/17 14:05 Critical Value E.PICHARDO 12/10/17 14:05 Sodium 152 mEq/L (136-145) H 12/16/17 06:50 Potassium 3.3 mEq/L (3.5-5.1) L 12/16/17 06:50 Chloride 122 mEq/L (98-107) H 12/16/17 06:50 Carbon Dioxide 24.2 mEq/L (21.0-31.0) 12/16/17 06:50 Anion Gap 9.1 (7.0-16.0) 12/16/17 06:50 BUN 34 mg/dL (7-25) H 12/16/17 06:50 Creatinine 0.8 mg/dL (0.7-1.3) 02 06:50 Est GFR ( Amer) TNP 12/16/17 06:50 Est GFR (Non-Af Amer) TNP 12/16/17 06:50 BUN/Creatinine Ratio 42.5 12/16/17 06:50 Glucose 196 mg/dL (70-105) H 12/16/17 06:50 POC Glucose 164 MG/DL (70 - 105) H 12/16/17 12:05 Hemoglobin A1c % 6.4 % (4.0-6.0) H 12/11/17 05:30 Whole Bld Lactic Acid 1.12 mmol/L (0.60-1.99) 12/11/17 07:37 Calcium 8.3 mg/dL (8.6-10.3) L 12/16/17 06:50 Phosphorus 2.7 mg/dL (2.5-5.0) 12/16/17 06:50 Magnesium 2.3 mg/dL (1.9-2.7) 12/13/17 07:45 Iron 26 ug/dL (38-169) L 12/11/17 05:30 TIBC 161 ug/dL (250-450) L 12/11/17 05:30 Iron Saturation 16 % (15-55) 12/11/17 05:30 Unsaturated IBC 135 ug/dL (111-343) 12/11/17 05:30 Ferritin 513 ng/mL (30-400) H 12/11/17 05:30 Total Bilirubin 0.5 mg/dL (0.3-1.0) 12/16/17 06:50 AST 96 U/L (13-39) H 12/16/17 06:50 ALT 95 U/L (7-52) H 12/16/17 06:50 Alkaline Phosphatase 169 U/L (34-104) H 12/16/17 06:50 Troponin I 0.44 ng/mL (0.01-0.05) H* D 12/10/17 14:06 B-Natriuretic Peptide 532.0 pg/mL (5.0-100.0) H 12/10/17 14:06 Total Protein 4.7 gm/dL (6.0-8.3) L 12/16/17 06:50 Albumin 2.4 gm/dL (4.2-5.5) L 12/16/17 06:50 Globulin 2.3 gm/dL 12/16/17 06:50 Albumin/Globulin Ratio 1.0 (1.0-1.8) 12/16/17 06:50 Vitamin B12 1620 pg/mL (232-1245) H 12/11/17 05:30 Folic Acid >20.0 ng/mL (>3.0) 12/11/17 05:30 Urine Source [place] 12/15/17 16:30 Urine Color YELLOW 12/15/17 16:30 Urine Clarity CLEAR (CLEAR) 12/15/17 16:30 Urine pH 6.0 (4.6 - 8.0) 12/15/17 16:30 Ur Specific [place] 1.015 (1.005-1.030) 12/15/17 16:30 Urine Protein 30 mg/dL (NEGATIVE) H 12/15/17 16:30 Urine Glucose (UA) NEGATIVE mg/dL (NEGATIVE) 12/15/17 16:30 Urine Ketones NEGATIVE mg/dL (NEGATIVE) 12/15/17 16:30 Urine Blood LARGE (NEGATIVE) H 12/15/17 16:30 Urine Nitrate NEGATIVE (NEGATIVE) 12/15/17 16:30 Urine Bilirubin NEGATIVE (NEGATIVE) 12/15/17 16:30 Urine Urobilinogen 0.2 E.U./dL (0.2 - 1.0) 12/15/17 16:30 Ur Leukocyte Esterase NEGATIVE (NEGATIVE) 12/15/17 16:30 Urine RBC 2-5 /hpf (0-5) H 12/15/17 16:30 Urine WBC 2-5 /hpf (0-5) 12/15/17 16:30 Ur Epithelial Cells RARE /lpf (FEW) 12/15/17 16:30 Urine Bacteria OCCASIONAL /hpf (NONE SEEN) 12/15/17 16:30 Stool Occult Blood POSITIVE (NEGATIVE) H 12/13/17 13:20 Blood Type A POSITIVE 12/15/17 06:20 Antibody Screen NEGATIVE 12/15/17 06:20 Crossmatch See Detail 12/15/17 06:20 - Physical Exam Vitals and I&O: Vital Signs Temp 97.1 F 12/16/17 14:00 Pulse 51 12/16/17 17:59 Resp 19 12/16/17 14:00 BP 131/81 12/16/17 17:59 Pulse Ox 99 12/16/17 14:00 Intake & Output 12/15/17 12/16/17 12/16/17 18:59 06:59 18:59 Intake Total 8000 570.9413 500 Output Total 1400 752 Balance -570 626.8276 -252 Weight (lbs) 73.936 kg 73.936 kg Intake: Intake, IV Amount 456.6667 150 Albumin 25% 12.5gm/50mL 100 50 12.5 gm In 50 ml @ 50 mls /hr IV Q8HR [facility] Rx#: [id number] Piperacillin Sodium/ 100 100 Tazobact 3.375 gm In Sodium Chloride 0.9% 50 ml @ 100 mls/hr IV Q6HR [facility] Rx#:[id number] Potassium Phosphate 20 256.6667 mmole In Sodium Chloride 0.9% 250 ml @ 42.5 mls/hr IV X1 ONE Rx#:[id number] Tube Feeding 350 250 Blood Product 500 Albumin 50 100 Other 100 Output: Urine 1400 750 Stool 2 Other: # Bowel Movements 1 Stool Characteristics Soft Soft Black Black Active Medications: Current Medications Acetaminophen (Tylenol 650mg Supp) 650 mg RC Q4H PRN PRN Reason: Fever > 101 Stop: 02/08/18 23:09 Albuterol/Ipratropium (Duoneb Neb) 3 ml HHN Q6HRT [facility] Stop: 02/09/18 00:59 Last Admin: 12/16/17 13:44 Dose: 3 ml Amlodipine Besylate (Norvasc) 5 mg GT DAILY [facility] Stop: 02/09/18 08:59 Last Admin: 12/16/17 09:36 Dose: 5 mg Atorvastatin Calcium (Lipitor) 20 mg GT HS [facility] Stop: 02/09/18 20:59 Last Admin: 12/15/17 21:14 Dose: 20 mg Carvedilol (Coreg) 3.125 mg GT BID [facility] Stop: 02/09/18 08:59 Last Admin: 12/16/17 17:59 Dose: 3.125 mg [place] Oil/Romanian Balsam/Trypsin (Venelex) 1 appl TP DAILY [facility] Stop: 02/09/18 08:59 Last Admin: 12/16/17 09:37 Dose: 1 appl Dextrose (D50w) 50 ml IVP PRN PRN PRN Reason: Blood Glucose less than 70 Stop: 02/13/18 15:17 Dextrose (Glutose 40%) 18.75 gm PO PRN PRN PRN Reason: Blood Glucose less than 70 Stop: 02/13/18 15:17 Diltiazem HCl (Cardizem) 20 mg IVP Q4HR PRN PRN Reason: HR above 110 Stop: 02/08/18 23:09 Last Admin: 12/12/17 23:15 Dose: 20 mg Fluconazole (Diflucan) 100 mg PO DAILY [facility] Stop: 02/09/18 08:59 Last Admin: 12/16/17 09:27 Dose: 100 mg Folic Acid (Folate) 1 mg GT DAILY [facility] Stop: 02/10/18 08:59 Last Admin: 12/16/17 09:27 Dose: 1 mg Glucagon (Glucagen) 1 mg IM PRN PRN PRN Reason: Blood Glucose less than 70 Stop: 02/13/18 15:17 Piperacillin Sod/Tazobactam (Sod 3.375 gm/ Sodium Chloride) 50 mls @ 100 mls/ hr IV Q6HR [facility] Stop: 02/09/18 00:00 Last Infusion: 12/16/17 13:00 Dose: Infused Dextrose (D5w) 1,000 mls @ 75 mls/hr IV .[id number] [facility] Stop: 02/13/18 14:34 Last Admin: 12/16/17 15:45 Dose: 75 mls/hr Insulin Aspart (Novolog Insulin Sliding Scale) 0 units SUBQ Q6HR RYAN PRN Reason: Protocol Stop: 02/09/18 00:00 Last Admin: 12/16/17 12:24 Dose: Not Given Insulin Detemir (Levemir Insulin) 14 units SUBQ BID YRAN PRN Reason: Protocol Stop: 02/09/18 08:59 Last Admin: 12/16/17 09:38 Dose: 14 units Miscellaneous (Probiotic Screen) 1 ea MC PRN PRN PRN Reason: PROTOCOL Stop: 02/10/18 17:05 Miscellaneous (Vte Chemical Prophylaxis Screen/ Admission) 1 ea PRN PRN PRN Reason: PROTOCOL Stop: 02/13/18 10:23 Morphine Sulfate (Morphine) 1 mg IVP Q4HR PRN PRN Reason: Pain (Severe) Stop: 02/10/18 23:46 Last Admin: 12/14/17 18:10 Dose: 1 mg Neomycin/Polymyxin/Bacitracin (Triple Antibiotic Pkt) 1 pkt TP DAILY [facility]YAN Stop: 02/09/18 08:59 Last Admin: 12/16/17 09:37 Dose: 1 pkt Nystatin (Nystop) 0 units TP BID RYAN Stop: 02/13/18 20:29 Last Admin: 12/16/17 16:02 Dose: 100,000 units Pantoprazole Sodium (Protonix) 40 mg IVP BID RYAN Stop: 02/09/18 08:59 Last Admin: 12/16/17 17:59 Dose: 40 mg Potassium Phosphate (K Phos) 1,000 mg PO BID RYAN Stop: 02/12/18 12:29 Last Admin: 12/16/17 09:27 Dose: 1,000 mg General: weak, demented HEENT: NC/AT, PERRLA, EOMI, anicteric sclerae, throat clear Neck: Supple, No JVD, No thyromegaly, +2 carotid pulse wo bruit, No LAD, + JVD Lungs: CTAB Cardiovascular: RRR, Normal S1, Normal S2, without murmur Abdomen: non-tender, non-distended Extremities: clear Neurological: no change - Procedures Procedures: Procedures Procedure Code Date BLOOD TRANSFUSION SERVICE 68296 12/10/17 EXCISION OF STOMACH, ENDO, DIAGN [id number] 11/15/17 INSERT TUNNELED CV CATH 39662 11/15/17 INSERTION OF FEEDING DEVICE INTO STOMACH, ENDO [id number] 11/15/17 INSERTION OF INFUSION DEV INTO R SUBCLAV VEIN, PERC APPROACH 46Y445C 11/15/17 PERFORMANCE OF URINARY FILTRATION, <6 HRS/DAY [id number] 11/15/17 REMOVAL OF INFUSION DEVICE FROM UPPER VEIN, PERC APPROACH 57PG07C 11/15/17 TRANSFUSE NONAUT RED BLOOD CELLS IN PERIPH VEIN, PERC 12300U0 12/10/17 ULTRASONOGRAPHY OF RIGHT SUBCLAVIAN VEIN, GUIDANCE Q104TIM 11/15/17 Internal Medicine Assmt/Plan - Assessment Assessment: 1.ASPIRATION PNEUMONIA. 2.SEPSIS. 3.ANEMIA. 4.DEHYDRATION 5.HEMATUREA - Plan Plan: CONTINUE ON CURRENT MEDICATION AND DIET. Nutritional Asmnt/Malnutr-PDOC - Dietary Evaluation Malnutrition Findings (Please click <Entered> for more info): Nutritional Asmnt/Malnutrition Start: 12/13/17 16: 00 Text: Status: Complete Freq: Document 12/13/17 16:00 [facility] (Rec: 12/13/17 16:22 LCHEN [email or web address]) Nutritional Asmnt/Malnutrition Patient General Information Nutritional Screening High Risk Consult Diagnosis sepsis, PNA, rsepiratory failure, PENNY Pertinent Medical Hx/Surgical Hx DM, HTN, dementia, psychotic dysphagia Subjective Information Pt seen resting in bed at time of visit. TF was off at this time. Spoke with RN, RN reported pt tolerated TF well. Current Diet Order/ Nutrition Support novosource 50ml x 20hr, providing 2000kcal, 91g protein Pertinent Medications D5w, folate, glucagen, novolog , levemir, triple antibiotic pkt, protonix, piperacillin Pertinent Labs 2/5 Na 158, K 3.6, Cl 127, BUN 65, Cr 1.3, Glucose 240, POC 170-249 Nutritional Hx/Data Height 1.85 m Height (Calculated Centimeters) 185.4 Current Weight (lbs) 68.039 kg Weight (Calculated Kilograms) 68.0 Weight (Calculated Grams) 07031.9 [place] Body Weight 184 % [place] Body Weight 82 Body Mass Index (BMI) 19.8 Weight Status Approriate GI Symptoms GI Symptoms None Last BM 2/5 Difficult in: None Skin Integrity/Comment: decubitus ulceration to right buttocks, bruise to RUE, maceration to scrotum Estimated Nutritional Goals BEE in Kcals: Using Current wt Calories/Kcals/Kg 27-32 Kcals Calculated 7194-5714 Protein: Using Current wt Protein g/k.2-1.4 monitor renal labs Protein Calculated 81-95 Fluid: ml 1836-2176ml (1ml/kcal) Nutritional Problem 1. Problem Problem altered nutrition related lab values Etiology dx of PENNY, hx of DM Signs/Symptoms: Na 158, BUN 65, Glucose 240, POC 170-249 Malnutrition Alert Protein-Calorie Malnutrition N/A Is there a minimum of two criteria No selected? Query Text:Check all the applicable criteria. A minimum of two criteria are recommended for diagnosis of either severe or non-severe malnutrition. Intervention/Recommendation Comments 1. Continue with current TF regimen. It provides 2000kcal, 91g protein, meeting 100% of nutritional needs 2. Monitor TF rate, tolerance, wt weekly, skin integrity and labs 3. F/U as moderate risk in 3-5 days, 12/16-12/18 Expected Outcomes/Goals Expected Outcomes/Goals 1. Pt to meet at least 75% of nutritional needs via nutrition support with tolerance 2. Wt stability, skin to remain intact, labs to approach WNL.
--- NOTE | 2017-12-16 19:19 | Operative Report ---
DATE OF SURGERY: 12/16/2017 PROCEDURES: 1. Esophagogastroduodenoscopy with biopsy. 2. Enteroscopy with control of bleeding. INDICATION FOR PROCEDURE: GI bleeding. CONSENT: Informed consent could not be obtained, so it was the consensus among the treating physician to go ahead with the procedure. ANESTHESIA USED: Propofol by anesthesiologist, Dr. Morrell. PREOPERATIVE DIAGNOSIS: Gastrointestinal bleed. POSTOPERATIVE DIAGNOSES: 1. Gastrointestinal bleed for a bleeding spot on the third portion of the duodenum, status post enteroscopy with control of bleeding using gold probe. 2. Small duodenal ulcer. 3. Significant duodenitis and gastritis, status post CLOtest and biopsy of the duodenum. DESCRIPTION OF PROCEDURE: The patient was placed on his back. Head was tilted to the side and flexed forward. Upper Olympus endoscope was introduced into the mouth and advanced to the esophagus and down to the stomach. Esophageal mucosa was examined on the way down to essentially normal. GE junction was identified at 35 cm and led to a medium-sized hiatal hernia. Scope was advanced to the stomach where the gastric mucosa was examined and it showed gastritis. There was erythema involving the body and antrum. There was significant erythema and irregularity of the mucosa in the pyloric channel. Scope was advanced to the duodenum. We could see a speck of blood underneath it. There was duodenitis with some erosions, but no real ulcer was seen. Scope was advanced further down. We could see a small ulcer, but you could not see any bleeding. We kept going back and forth until fine, and then we can see some more fresh blood towards the end of the second portion of the duodenum and near the third portion. I could not go any further, so scope was then withdrawn and a pediatric colonoscope was inserted and then advanced through the mouth to the esophagus to the stomach to the duodenum. We could identify the bleeding spot. It was a pinpoint, but it was continuously oozing blood and blood was motion, it would reaccumulate and even clots. So, then using a gold probe, this area was cauterized. Then, the area beyond it showed some duodenitis, before it also showed some duodenitis with a small ulcer. Scope was then withdrawn to the stomach and biopsies were taken from the antrum and body for histopathology, then from the antrum for CLOtest. Then, scope was then advanced to the duodenum and biopsies were taken from the bulb from this area of duodenitis. Scope was then withdrawn. The patient tolerated the procedure well. There were no immediate postoperative complications. RECOMMENDATIONS: 1. Followup biopsy results. 2. Treat H. pylori if positive. 3. PPI. 4. Repeat procedure if future bleeding. Thank you Dr. Frost for allowing me to participate in the care of clearance. If you have any further questions, please let me know. JOB# [id number]
[2017-12-16] MEDS: Atorvastatin Calcium 10 MG TAB GT SCH (21:03)
--- NOTE | 2017-12-17 00:38 | Consultation ---
DATE OF CONSULTATION: 12/16/2017 UROLOGY CONSULTATION REASON FOR CONSULTATION: Seen for gross hematuria, scrotum swelling, and bladder abnormality on ultrasound. HISTORY OF PRESENT ILLNESS: The patient is a 77-year-old, who was admitted for shortness of breath and altered level of consciousness. He has multiple medical problems and he is a custodial resident with several issues, but no known urologic history. He has a Torres, which may have been placed here, but again unknown and yesterday started to bleed from the Torres at which point we changed it to a larger caliber catheter and irrigated it and since then it has improved gradually and is now clear. Meanwhile, the bladder ultrasound shows a complex mass, which could be a blood clot or bladder lesion. Ultrasound shows nonobstructing stones in one of his kidneys and scrotal swelling was evaluated as being hydrocele and epididymal cyst. PAST MEDICAL HISTORY: 1. Positive for hypertension, coronary artery disease, and history of stroke. He also has hyperlipidemia. 2. History of peptic ulcer disease, GERD, and GI bleed. The patient now going for upper endoscopy. 3. Hypothyroidism. 4. Dementia. 5. History of renal failure, resolved, currently normal for renal function. 6. Pacemaker and G-tube status. 7. Atrial fibrillation. 8. Anemia. SOCIAL HISTORY: Presently, no alcohol, tobacco, or drug use. PSYCHIATRIC HISTORY: Known diagnosis of depression and schizophrenia. HOME MEDICATIONS: Cardizem, inhalers, insulin on sliding scale; p.r.n. medications, amlodipine, Eliquis, aspirin, Lipitor, Coreg, Diflucan, melatonin, metformin, Remeron, Zyprexa, Protonix, spironolactone. ALLERGIES: Lisinopril. REVIEW OF SYSTEMS: Altered level of consciousness, improved. Scrotal swelling improved. Hematuria, resolved. Presently, no chest pain or IN noted in the hospital. No new evidence of seizure or stroke. No vomiting or diarrhea. PHYSICAL EXAMINATION: GENERAL: The patient is almost nonverbal, just communicates with yes or no some of the times. VITAL SIGNS: Temperature 96.5, heart rate 94 in sinus rhythm, blood pressure 161/81. HEAD AND NECK: Normocephalic. Trachea central. Pupils equal and reactive. No jaundice. NECK: Thyroid and lymph nodes not palpable. Carotid bruit absent. CHEST: Symmetrical. LUNGS: Clear. No rales or rhonchi. HEART: Sounds normal in sinus rhythm, no murmur. ABDOMEN: Soft, nontender, no organomegaly, mass, or hernia. GENITALIA: Normal male. Scrotal skin discolored and hypopigmented in some areas, no ulceration and edematous. Testicles normal. Penis unremarkable. Torres catheter draining clear water color urine. EXTREMITIES: No edema or lymphadenopathy. NEUROLOGIC: Nonfocal. Moves all 4 limbs. No contractures in the lower extremity either, which can be abducted freely on both sides. LABORATORY DATA: White count 6.6 was always normal, hemoglobin 7.7 after blood transfusions, dropped down to as low as 6.2 and is considered to be secondary to GI bleed and may be hematuria. Anticoagulants were stopped after that. Platelets adequate and PT/INR 1.1 as of yesterday and creatinine up to 1.3, which is not terribly abnormal and currently at 0.8, BUN 34. He has had high levels of sodium currently at 152. Last glucose level 164, 196, and 167. AST, ALT, alkaline phosphatase are all elevated mildly and blood cultures negative. No MRSA in the nares. Ultrasound showed the stones as I mentioned in one of the kidneys, nonobstructive and scrotal edema and hydrocele as well as a bladder lesion, which could be hematoma or bladder tumor. IMPRESSION: Gross hematuria secondary to anticoagulants, Torres catheter trauma if the patient pulled on it and/or bladder tumor. Recommend Torres catheter irrigation manually whenever there is blood seen in the tubing. We will repeat the ultrasound when he is stable to see if the bladder lesion is still present and if so, a cystoscopy will be not needed. The kidney stones on ultrasound can be observed as they are not symptomatic at this point. Multiple other comorbidities including diabetes, hypertension, hyperlipidemia, atrial fibrillation, history of stroke, schizophrenia, gastritis, and gastrointestinal bleed limit of the scope of treatment and increased the risk of complications. Thank you for the referral. JOB# [id number]
[2017-12-17] MEDS: Albuterol/Ipratropium Neb 3 ML AERS HHN SCH ×4 (00:55→19:24)
[2017-12-17] MEDS: INSULIN ASPART SLIDING SCALE 100 UNITS/ML UNIT SUBQ SCH ×4 (01:00→17:51)
[2017-12-17 06:11] LABS: % BASOPHILS 0.1 % (0.0-2.0); % LYMPHOCYTES 14.2 % (20.0-50.0); % MONOCYTES 4.3 % (2.0-10.0); % NEUTROPHILS 80.4 % (40.0-80.0); EOSINOPHILE ABSOLUTE 0.1 Th/cmm (0.1-0.4); HEMATOCRIT 29.4 % (41.0-60); LYMPHOCYTE ABSOLUTE 1.1 Th/cmm (1.5-3.0); MEAN CELL VOLUME 94.7 fl (80-99); MEAN CORPUSCULAR HEMOGLOBIN 32.2 pg (27.0-31.0); MEAN PLATELET VOLUME 10.4 fl; MONOCYTE ABSOLUTE 0.3 Th/cmm (0.3-1.0); RED CELL DISTRIBUTION WIDTH 15.2 % (11.5-20.0); WHITE BLOOD COUNT 7.5 Th/cmm (4.8-10.8)
[2017-12-17 06:23] LABS: PLATELET COUNT 179 Th/cmm (150-400)
[2017-12-17 06:29] LABS: ANION GAP 9.4 (7.0-16.0); BUN - UREA NITROGEN 32 mg/dL (7-25); CALCIUM SERUM 8.1 mg/dL (8.6-10.3); CHLORIDE 121 mEq/L (98-107); CREATININE - SERUM 0.9 mg/dL (0.7-1.3); GLUCOSE 199 mg/dL (70-105); POTASSIUM SERUM 3.4 mEq/L (3.5-5.1); SODIUM SERUM 150 mEq/L (136-145)
[2017-12-17] MEDS: Triple Antibiotic 0.94 gm Pkt TP SCH (09:03)
[2017-12-17] MEDS: Insulin Detemir 100 units/mL 10mL Vial SUBQ SCH ×2 (09:09→17:52)
--- NOTE | 2017-12-17 14:05 | General Progress Note ---
Subjective - Review of Systems Service Date: 12/17/17 Subjective: more awake, conversing, comfortable Objective - Results Result Diagrams: 12/17/17 05:50 12/17/17 05:50 Recent Labs: Laboratory Last Values WBC 7.5 Th/cmm (4.8-10.8) 12/17/17 05:50 Corrected WBC (auto) 4.4 Th/cmm 12/12/17 23:59 RBC 3.10 Mil/cmm (3.80-5.80) L 12/17/17 05:50 Hgb 10.0 gm/dL (12-16) L 12/17/17 05:50 Hct 29.4 % (41.0-60) L 12/17/17 05:50 MCV 94.7 fl (80-99) 12/17/17 05:50 MCH 32.2 pg (27.0-31.0) H 12/17/17 05:50 MCHC Differential 34.0 pg (28.0-36.0) 12/17/17 05:50 RDW 15.2 % (11.5-20.0) 12/17/17 05:50 Plt Count 179 Th/cmm (150-400) D 12/17/17 05:50 MPV 10.4 fl 12/17/17 05:50 Neutrophils % 80.4 % (40.0-80.0) H 12/17/17 05:50 Band Neutrophils % 10 % (0-10) 12/12/17 23:59 Lymphocytes % 14.2 % (20.0-50.0) L 12/17/17 05:50 Monocytes % 4.3 % (2.0-10.0) 12/17/17 05:50 Eosinophils % 1.0 % (0.0-5.0) 12/17/17 05:50 Basophils % 0.1 % (0.0-2.0) 12/17/17 05:50 Neutrophils (Manual) 60 % (40-80) 12/12/17 23:59 Lymphocytes 20 % (20-50) 12/12/17 23:59 Monocytes 6 % (2-10) 12/12/17 23:59 Eosinophils 4 % (0-5) 12/12/17 23:59 Nucleated RBCs 6.0 % (0-0) H 12/12/17 23:59 Platelet Estimate SLIGHT DECREASED (NORMAL) 12/12/17 23:59 Platelet Morphology GIANT PLATELETS SEEN (NORMAL) 12/11/17 17:58 Polychromasia 1+ 12/11/17 17:58 Anisocytosis 1+ 12/11/17 17:58 RBC Morph Micro Appear ABNORMAL (NORMAL) 12/11/17 17:58 PT 11.9 SECONDS (9.5-11.5) H 12/15/17 06:20 INR 1.13 (0.5-1.4) 12/15/17 06:20 PTT (Actin FS) 26.9 SECONDS (26.0-38.0) 12/15/17 06:20 Specimen Source Arterial 12/10/17 14:05 Sample Site Left Radial 12/10/17 14:05 pH 7.51 (7.35-7.45) H 12/10/17 14:05 pCO2 36.0 mmHg (35.0-45.0) 12/10/17 14:05 pO2 102.0 mmHg (80.0-100.0) H 12/10/17 14:05 HCO3 29.2 mEq/L (20.0-26.0) H 12/10/17 14:05 Base Excess 5.5 mEq/L (-3.0-3.0) H 12/10/17 14:05 O2 Saturation 98.0 % (92.0-100.0) 12/10/17 14:05 Mario Test YES 12/10/17 14:05 Vent Rate NA 12/10/17 14:05 Inspired O2 50 12/10/17 14:05 Tidal Volume NA 12/10/17 14:05 PEEP NA 12/10/17 14:05 Pressure (ins/psv/peep) NA 12/10/17 14:05 Critical Value E.PICHARDO 12/10/17 14:05 Sodium 150 mEq/L (136-145) H 12/17/17 05:50 Potassium 3.4 mEq/L (3.5-5.1) L 12/17/17 05:50 Chloride 121 mEq/L (98-107) H 12/17/17 05:50 Carbon Dioxide 23.0 mEq/L (21.0-31.0) 12/17/17 05:50 Anion Gap 9.4 (7.0-16.0) 12/17/17 05:50 BUN 32 mg/dL (7-25) H 12/17/17 05:50 Creatinine 0.9 mg/dL (0.7-1.3) 12/17/17 05:50 Est GFR ( Amer) TNP 12/17/17 05:50 Est GFR (Non-Af Amer) TNP 12/17/17 05:50 BUN/Creatinine Ratio 35.6 12/17/17 05:50 Glucose 199 mg/dL (70-105) H 12/17/17 05:50 POC Glucose 165 MG/DL (70 - 105) H 12/17/17 12:36 Hemoglobin A1c % 6.4 % (4.0-6.0) H 12/11/17 05:30 Whole Bld Lactic Acid 1.12 mmol/L (0.60-1.99) 12/11/17 07:37 Calcium 8.1 mg/dL (8.6-10.3) L 12/17/17 05:50 Phosphorus 2.7 mg/dL (2.5-5.0) 12/16/17 06:50 Magnesium 2.0 mg/dL (1.9-2.7) 12/17/17 05:50 Iron 26 ug/dL (38-169) L 12/11/17 05:30 TIBC 161 ug/dL (250-450) L 12/11/17 05:30 Iron Saturation 16 % (15-55) 12/11/17 05:30 Unsaturated IBC 135 ug/dL (111-343) 12/11/17 05:30 Ferritin 513 ng/mL (30-400) H 12/11/17 05:30 Total Bilirubin 0.5 mg/dL (0.3-1.0) 12/16/17 06:50 AST 96 U/L (13-39) H 12/16/17 06:50 ALT 95 U/L (7-52) H 12/16/17 06:50 Alkaline Phosphatase 169 U/L (34-104) H 12/16/17 06:50 Troponin I 0.44 ng/mL (0.01-0.05) H* D 12/10/17 14:06 B-Natriuretic Peptide 532.0 pg/mL (5.0-100.0) H 12/10/17 14:06 Total Protein 4.7 gm/dL (6.0-8.3) L 12/16/17 06:50 Albumin 2.4 gm/dL (4.2-5.5) L 12/16/17 06:50 Globulin 2.3 gm/dL 12/16/17 06:50 Albumin/Globulin Ratio 1.0 (1.0-1.8) 12/16/17 06:50 Vitamin B12 1620 pg/mL (232-1245) H 12/11/17 05:30 Folic Acid >20.0 ng/mL (>3.0) 12/11/17 05:30 Urine Source [place] 12/15/17 16:30 Urine Color YELLOW 12/15/17 16:30 Urine Clarity CLEAR (CLEAR) 12/15/17 16:30 Urine pH 6.0 (4.6 - 8.0) 12/15/17 16:30 Ur Specific [place] 1.015 (1.005-1.030) 12/15/17 16:30 Urine Protein 30 mg/dL (NEGATIVE) H 12/15/17 16:30 Urine Glucose (UA) NEGATIVE mg/dL (NEGATIVE) 12/15/17 16:30 Urine Ketones NEGATIVE mg/dL (NEGATIVE) 12/15/17 16:30 Urine Blood LARGE (NEGATIVE) H 12/15/17 16:30 Urine Nitrate NEGATIVE (NEGATIVE) 12/15/17 16:30 Urine Bilirubin NEGATIVE (NEGATIVE) 12/15/17 16:30 Urine Urobilinogen 0.2 E.U./dL (0.2 - 1.0) 12/15/17 16:30 Ur Leukocyte Esterase NEGATIVE (NEGATIVE) 12/15/17 16:30 Urine RBC 2-5 /hpf (0-5) H 12/15/17 16:30 Urine WBC 2-5 /hpf (0-5) 12/15/17 16:30 Ur Epithelial Cells RARE /lpf (FEW) 12/15/17 16:30 Urine Bacteria OCCASIONAL /hpf (NONE SEEN) 12/15/17 16:30 Stool Occult Blood POSITIVE (NEGATIVE) H 12/13/17 13:20 Blood Type A POSITIVE 12/15/17 06:20 Antibody Screen NEGATIVE 12/15/17 06:20 Crossmatch See Detail 12/15/17 06:20 - Physical Exam Vitals and I&O: Vital Signs Temp 98.1 F 12/17/17 11:31 Pulse 84 12/17/17 12:52 Resp 18 12/17/17 12:52 BP 145/82 12/17/17 11:31 Pulse Ox 100 12/17/17 12:52 Intake & Output 12/16/17 12/17/17 12/17/17 18:59 06:59 18:59 Intake Total 500 800 Output Total 752 350 Balance -252 450 Weight (lbs) 73.936 kg 89.811 kg Intake: Intake, IV Amount 150 150 Albumin 25% 12.5gm/50mL 50 12.5 gm In 50 ml @ 50 mls /hr IV Q8HR [facility] Rx#: [id number] Piperacillin Sodium/ 100 150 Tazobact 3.375 gm In Sodium Chloride 0.9% 50 ml @ 100 mls/hr IV Q6HR [facility] Rx#:[id number] Tube Feeding 250 650 Albumin 100 Output: Urine 750 350 Stool 2 Other: # Bowel Movements 1 Active Medications: Current Medications Acetaminophen (Tylenol 650mg Supp) 650 mg RC Q4H PRN PRN Reason: Fever > 101 Stop: 02/08/18 23:09 Albuterol/Ipratropium (Duoneb Neb) 3 ml HHN Q6HRT [facility] Stop: 02/09/18 00:59 Last Admin: 12/17/17 12:52 Dose: 3 ml Amlodipine Besylate (Norvasc) 5 mg GT DAILY [facility] Stop: 02/09/18 08:59 Last Admin: 12/17/17 09:03 Dose: 5 mg Atorvastatin Calcium (Lipitor) 20 mg GT HS [facility] Stop: 02/09/18 20:59 Last Admin: 12/16/17 21:03 Dose: 20 mg Carvedilol (Coreg) 3.125 mg GT BID [facility] Stop: 02/09/18 08:59 Last Admin: 12/17/17 09:05 Dose: 3.125 mg [place] Oil/Congolese Balsam/Trypsin (Venelex) 1 appl TP DAILY [facility] Stop: 02/09/18 08:59 Last Admin: 12/16/17 09:37 Dose: 1 appl Dextrose (D50w) 50 ml IVP PRN PRN PRN Reason: Blood Glucose less than 70 Stop: 02/13/18 15:17 Dextrose (Glutose 40%) 18.75 gm PO PRN PRN PRN Reason: Blood Glucose less than 70 Stop: 02/13/18 15:17 Diltiazem HCl (Cardizem) 20 mg IVP Q4HR PRN PRN Reason: HR above 110 Stop: 02/08/18 23:09 Last Admin: 12/12/17 23:15 Dose: 20 mg Fluconazole (Diflucan) 100 mg PO DAILY [facility] Stop: 02/09/18 08:59 Last Admin: 12/17/17 09:03 Dose: 100 mg Folic Acid (Folate) 1 mg GT DAILY [facility] Stop: 02/10/18 08:59 Last Admin: 12/17/17 09:04 Dose: 1 mg Glucagon (Glucagen) 1 mg IM PRN PRN PRN Reason: Blood Glucose less than 70 Stop: 02/13/18 15:17 Piperacillin Sod/Tazobactam (Sod 3.375 gm/ Sodium Chloride) 50 mls @ 100 mls/ hr IV Q6HR [facility] Stop: 02/09/18 00:00 Last Admin: 12/17/17 12:31 Dose: 100 mls/hr Dextrose (D5w) 1,000 mls @ 75 mls/hr IV .[id number] [facility] Stop: 02/13/18 14:34 Last Admin: 12/16/17 15:45 Dose: 75 mls/hr Insulin Aspart (Novolog Insulin Sliding Scale) 0 units SUBQ Q6HR [facility] PRN Reason: Protocol Stop: 02/09/18 00:00 Last Admin: 12/17/17 12:37 Dose: Not Given Insulin Detemir (Levemir Insulin) 14 units SUBQ BID [facility] PRN Reason: Protocol Stop: 02/09/18 08:59 Last Admin: 12/17/17 09:09 Dose: 14 units Miscellaneous (Probiotic Screen) 1 ea MC PRN PRN PRN Reason: PROTOCOL Stop: 02/10/18 17:05 Miscellaneous (Vte Chemical Prophylaxis Screen/ Admission) 1 ea MC PRN PRN PRN Reason: PROTOCOL Stop: 02/13/18 10:23 Morphine Sulfate (Morphine) 1 mg IVP Q4HR PRN PRN Reason: Pain (Severe) Stop: 02/10/18 23:46 Last Admin: 12/14/17 18:10 Dose: 1 mg Neomycin/Polymyxin/Bacitracin (Triple Antibiotic Pkt) 1 pkt TP DAILY [facility] Stop: 02/09/18 08:59 Last Admin: 12/17/17 09:03 Dose: 1 pkt Nystatin (Nystop) 0 units TP BID [facility] Stop: 02/13/18 20:29 Last Admin: 12/16/17 16:02 Dose: 100,000 units Pantoprazole Sodium (Protonix) 40 mg IVP BID [facility] Stop: 02/09/18 08:59 Last Admin: 12/17/17 09:03 Dose: 40 mg Potassium Chloride (Klor-Con) 20 meq PO DAILY [facility] Stop: 02/15/18 13:59 General: No acute distress HEENT: PERRLA, EOMI, Mucous membr. moist/pink Neck: Supple, +2 carotid pulse wo bruit Cardiovascular: Regular rate, Normal S1, Normal S2 Lungs: Other (decreased BS) Abdomen: Bowel sounds, Soft Extremities: Other (upper ext), no Edema Neurological: Sensation intact Skin: no Rash Psych/Mental Status: Mood NL - Procedures Procedures: Procedures Procedure Code Date BLOOD TRANSFUSION SERVICE 84533 12/10/17 EXCISION OF STOMACH, ENDO, DIAGN [id number] 11/15/17 INSERT TUNNELED CV CATH 11026 11/15/17 INSERTION OF FEEDING DEVICE INTO STOMACH, ENDO [id number] 11/15/17 INSERTION OF INFUSION DEV INTO R SUBCLAV VEIN, PERC APPROACH [id number] 11/15/17 PERFORMANCE OF URINARY FILTRATION, <6 HRS/DAY [id number] 11/15/17 REMOVAL OF INFUSION DEVICE FROM UPPER VEIN, PERC APPROACH [id number] 11/15/17 TRANSFUSE NONAUT RED BLOOD CELLS IN PERIPH VEIN, PERC 06183H0 12/10/17 ULTRASONOGRAPHY OF RIGHT SUBCLAVIAN VEIN, GUIDANCE [id number] 11/15/17 Assessment/Plan - Assessment Assessment: PENNY Hypernatremia, Hypokalemia CVA Type 2 DM Ess Htn Thrombocytopenia Severe Anemia B/L Scrotal Hydrocele Left HAP - Plan Plan: Lab - Result Diagrams 12/13/17 07:45 12/13/17 07:45 Current Medications Acetaminophen (Tylenol 650mg Supp) 650 mg RC Q4H PRN PRN Reason: Fever > 101 Stop: 02/08/18 23:09 Albuterol/Ipratropium (Duoneb Neb) 3 ml HHN Q6HRT [facility] Stop: 02/09/18 00:59 Last Admin: 12/13/17 12:42 Dose: 3 ml Amlodipine Besylate (Norvasc) 5 mg GT DAILY [facility] Stop: 02/09/18 08:59 Last Admin: 12/13/17 08:52 Dose: 5 mg Atorvastatin Calcium (Lipitor) 20 mg GT HS [facility] Stop: 02/09/18 20:59 Last Admin: 12/12/17 21:41 Dose: 20 mg Carvedilol (Coreg) 3.125 mg GT BID [facility] Stop: 02/09/18 08:59 Last Admin: 12/13/17 08:52 Dose: 3.125 mg [place] Oil/Congolese Balsam/Trypsin (Venelex) 1 appl TP DAILY [facility] Stop: 02/09/18 08:59 Last Admin: 12/13/17 08:55 Dose: 1 appl Diltiazem HCl (Cardizem) 20 mg IVP Q4HR PRN PRN Reason: HR above 110 Stop: 02/08/18 23:09 Last Admin: 12/12/17 23:15 Dose: 20 mg Fluconazole (Diflucan) 100 mg PO DAILY [facility] Stop: 02/09/18 08:59 Last Admin: 12/13/17 08:51 Dose: 100 mg Folic Acid (Folate) 1 mg GT DAILY [facility] Stop: 02/10/18 08:59 Last Admin: 12/13/17 08:52 Dose: 1 mg Glucagon (Glucagen) 1 mg IM PRN PRN PRN Reason: BS BELOW 60 & NOT TOLERATE PO Stop: 02/08/18 23:14 Piperacillin Sod/Tazobactam (Sod 3.375 gm/ Sodium Chloride) 50 mls @ 100 mls/ hr IV Q6HR [facility] Stop: 02/09/18 00:00 Last Admin: 12/13/17 12:49 Dose: 100 mls/hr Dextrose (D5w) 1,000 mls @ 50 mls/hr IV .Q20H [facility] Stop: 02/10/18 08:25 Last Admin: 12/13/17 08:53 Dose: 50 mls/hr Insulin Aspart (Novolog Insulin Sliding Scale) 0 units SUBQ Q6HR [facility] PRN Reason: Protocol Stop: 02/09/18 00:00 Last Admin: 12/13/17 12:49 Dose: 2 units Insulin Detemir (Levemir Insulin) 14 units SUBQ BID [facility] PRN Reason: Protocol Stop: 02/09/18 08:59 Last Admin: 12/13/17 08:54 Dose: 14 units Miscellaneous (Probiotic Screen) 1 ea MC PRN PRN PRN Reason: PROTOCOL Stop: 02/10/18 17:05 Morphine Sulfate (Morphine) 1 mg IVP Q4HR PRN PRN Reason: Pain (Severe) Stop: 02/10/18 23:46 Last Admin: 12/13/17 01:43 Dose: 1 mg Neomycin/Polymyxin/Bacitracin (Triple Antibiotic Pkt) 1 pkt TP DAILY [facility] Stop: 02/09/18 08:59 Last Admin: 12/13/17 08:52 Dose: 1 pkt Pantoprazole Sodium (Protonix) 40 mg IVP BID [facility] Stop: 02/09/18 08:59 Last Admin: 12/13/17 08:53 Dose: 40 m Lab - Result Diagrams 12/17/17 05:50 12/17/17 05:50 Na & BUN gradually improving Has mild upper ext edema scrotal US B/L Hydrocele On H20 flushes,increase D5W to 70 ml/hr Duplex scan no RUE DVT CXR left consolidation replace K Nutritional Asmnt/Malnutr-PDOC - Dietary Evaluation Malnutrition Findings (Please click <Entered> for more info): Nutritional Asmnt/Malnutrition Start: 12/13/17 16: 00 Text: Status: Complete Freq: Document 12/13/17 16:00 LISA (Rec: 12/13/17 16:22 [email or web address] Nutritional Asmnt/Malnutrition Patient General Information Nutritional Screening High Risk Consult Diagnosis sepsis, PNA, rsepiratory failure, PENNY Pertinent Medical Hx/Surgical Hx DM, HTN, dementia, psychotic dysphagia Subjective Information Pt seen resting in bed at time of visit. TF was off at this time. Spoke with RN, RN reported pt tolerated TF well. Current Diet Order/ Nutrition Support novosource 50ml x 20hr, providing 2000kcal, 91g protein Pertinent Medications D5w, folate, glucagen, novolog , levemir, triple antibiotic pkt, protonix, piperacillin Pertinent Labs 2/5 Na 158, K 3.6, Cl 127, BUN 65, Cr 1.3, Glucose 240, POC 170-249 Nutritional Hx/Data Height 1.85 m Height (Calculated Centimeters) 185.4 Current Weight (lbs) 68.039 kg Weight (Calculated Kilograms) 68.0 Weight (Calculated Grams) 49661.9 [place] Body Weight 184 % [place] Body Weight 82 Body Mass Index (BMI) 19.8 Weight Status Approriate GI Symptoms GI Symptoms None Last BM 2/5 Difficult in: None Skin Integrity/Comment: decubitus ulceration to right buttocks, bruise to RUE, maceration to scrotum Estimated Nutritional Goals BEE in Kcals: Using Current wt Calories/Kcals/Kg 27-32 Kcals Calculated 5830-8751 Protein: Using Current wt Protein g/k.2-1.4 monitor renal labs Protein Calculated 81-95 Fluid: ml 1836-2176ml (1ml/kcal) Nutritional Problem 1. Problem Problem altered nutrition related lab values Etiology dx of PENNY, hx of DM Signs/Symptoms: Na 158, BUN 65, Glucose 240, POC 170-249 Malnutrition Alert Protein-Calorie Malnutrition N/A Is there a minimum of two criteria No selected? Query Text:Check all the applicable criteria. A minimum of two criteria are recommended for diagnosis of either severe or non-severe malnutrition. Intervention/Recommendation Comments 1. Continue with current TF regimen. It provides 2000kcal, 91g protein, meeting 100% of nutritional needs 2. Monitor TF rate, tolerance, wt weekly, skin integrity and labs 3. F/U as moderate risk in 3-5 days, 12/16-12/18 Expected Outcomes/Goals Expected Outcomes/Goals 1. Pt to meet at least 75% of nutritional needs via nutrition support with tolerance 2. Wt stability, skin to remain intact, labs to approach WNL.
--- NOTE | 2017-12-17 14:52 | General Progress Note ---
Subjective - Review of Systems Service Date: 12/17/17 Objective - Results Result Diagrams: 12/17/17 05:50 12/17/17 05:50 Recent Labs: Laboratory Last Values WBC 7.5 Th/cmm (4.8-10.8) 12/17/17 05:50 Corrected WBC (auto) 4.4 Th/cmm 12/12/17 23:59 RBC 3.10 Mil/cmm (3.80-5.80) L 12/17/17 05:50 Hgb 10.0 gm/dL (12-16) L 12/17/17 05:50 Hct 29.4 % (41.0-60) L 12/17/17 05:50 MCV 94.7 fl (80-99) 12/17/17 05:50 MCH 32.2 pg (27.0-31.0) H 12/17/17 05:50 MCHC Differential 34.0 pg (28.0-36.0) 12/17/17 05:50 RDW 15.2 % (11.5-20.0) 12/17/17 05:50 Plt Count 179 Th/cmm (150-400) D 12/17/17 05:50 MPV 10.4 fl 12/17/17 05:50 Neutrophils % 80.4 % (40.0-80.0) H 12/17/17 05:50 Band Neutrophils % 10 % (0-10) 12/12/17 23:59 Lymphocytes % 14.2 % (20.0-50.0) L 12/17/17 05:50 Monocytes % 4.3 % (2.0-10.0) 12/17/17 05:50 Eosinophils % 1.0 % (0.0-5.0) 12/17/17 05:50 Basophils % 0.1 % (0.0-2.0) 12/17/17 05:50 Neutrophils (Manual) 60 % (40-80) 12/12/17 23:59 Lymphocytes 20 % (20-50) 12/12/17 23:59 Monocytes 6 % (2-10) 12/12/17 23:59 Eosinophils 4 % (0-5) 12/12/17 23:59 Nucleated RBCs 6.0 % (0-0) H 12/12/17 23:59 Platelet Estimate SLIGHT DECREASED (NORMAL) 12/12/17 23:59 Platelet Morphology GIANT PLATELETS SEEN (NORMAL) 12/11/17 17:58 Polychromasia 1+ 12/11/17 17:58 Anisocytosis 1+ 12/11/17 17:58 RBC Morph Micro Appear ABNORMAL (NORMAL) 12/11/17 17:58 PT 11.9 SECONDS (9.5-11.5) H 12/15/17 06:20 INR 1.13 (0.5-1.4) 12/15/17 06:20 PTT (Actin FS) 26.9 SECONDS (26.0-38.0) 12/15/17 06:20 Specimen Source Arterial 12/10/17 14:05 Sample Site Left Radial 12/10/17 14:05 pH 7.51 (7.35-7.45) H 12/10/17 14:05 pCO2 36.0 mmHg (35.0-45.0) 12/10/17 14:05 pO2 102.0 mmHg (80.0-100.0) H 12/10/17 14:05 HCO3 29.2 mEq/L (20.0-26.0) H 12/10/17 14:05 Base Excess 5.5 mEq/L (-3.0-3.0) H 12/10/17 14:05 O2 Saturation 98.0 % (92.0-100.0) 12/10/17 14:05 Mario Test YES 12/10/17 14:05 Vent Rate NA 12/10/17 14:05 Inspired O2 50 12/10/17 14:05 Tidal Volume NA 12/10/17 14:05 PEEP NA 12/10/17 14:05 Pressure (ins/psv/peep) NA 12/10/17 14:05 Critical Value E.PICHARDO 12/10/17 14:05 Sodium 150 mEq/L (136-145) H 12/17/17 05:50 Potassium 3.4 mEq/L (3.5-5.1) L 12/17/17 05:50 Chloride 121 mEq/L (98-107) H 12/17/17 05:50 Carbon Dioxide 23.0 mEq/L (21.0-31.0) 12/17/17 05:50 Anion Gap 9.4 (7.0-16.0) 12/17/17 05:50 BUN 32 mg/dL (7-25) H 12/17/17 05:50 Creatinine 0.9 mg/dL (0.7-1.3) 12/17/17 05:50 Est GFR ( Amer) TNP 12/17/17 05:50 Est GFR (Non-Af Amer) TNP 12/17/17 05:50 BUN/Creatinine Ratio 35.6 12/17/17 05:50 Glucose 199 mg/dL (70-105) H 12/17/17 05:50 POC Glucose 165 MG/DL (70 - 105) H 12/17/17 12:36 Hemoglobin A1c % 6.4 % (4.0-6.0) H 12/11/17 05:30 Whole Bld Lactic Acid 1.12 mmol/L (0.60-1.99) 12/11/17 07:37 Calcium 8.1 mg/dL (8.6-10.3) L 12/17/17 05:50 Phosphorus 2.7 mg/dL (2.5-5.0) 12/16/17 06:50 Magnesium 2.0 mg/dL (1.9-2.7) 12/17/17 05:50 Iron 26 ug/dL (38-169) L 12/11/17 05:30 TIBC 161 ug/dL (250-450) L 12/11/17 05:30 Iron Saturation 16 % (15-55) 12/11/17 05:30 Unsaturated IBC 135 ug/dL (111-343) 12/11/17 05:30 Ferritin 513 ng/mL (30-400) H 12/11/17 05:30 Total Bilirubin 0.5 mg/dL (0.3-1.0) 12/16/17 06:50 AST 96 U/L (13-39) H 12/16/17 06:50 ALT 95 U/L (7-52) H 12/16/17 06:50 Alkaline Phosphatase 169 U/L (34-104) H 12/16/17 06:50 Troponin I 0.44 ng/mL (0.01-0.05) H* D 12/10/17 14:06 B-Natriuretic Peptide 532.0 pg/mL (5.0-100.0) H 12/10/17 14:06 Total Protein 4.7 gm/dL (6.0-8.3) L 12/16/17 06:50 Albumin 2.4 gm/dL (4.2-5.5) L 12/16/17 06:50 Globulin 2.3 gm/dL 12/16/17 06:50 Albumin/Globulin Ratio 1.0 (1.0-1.8) 12/16/17 06:50 Vitamin B12 1620 pg/mL (232-1245) H 12/11/17 05:30 Folic Acid >20.0 ng/mL (>3.0) 12/11/17 05:30 Urine Source [place] 12/15/17 16:30 Urine Color YELLOW 12/15/17 16:30 Urine Clarity CLEAR (CLEAR) 12/15/17 16:30 Urine pH 6.0 (4.6 - 8.0) 12/15/17 16:30 Ur Specific [place] 1.015 (1.005-1.030) 12/15/17 16:30 Urine Protein 30 mg/dL (NEGATIVE) H 12/15/17 16:30 Urine Glucose (UA) NEGATIVE mg/dL (NEGATIVE) 12/15/17 16:30 Urine Ketones NEGATIVE mg/dL (NEGATIVE) 12/15/17 16:30 Urine Blood LARGE (NEGATIVE) H 12/15/17 16:30 Urine Nitrate NEGATIVE (NEGATIVE) 12/15/17 16:30 Urine Bilirubin NEGATIVE (NEGATIVE) 12/15/17 16:30 Urine Urobilinogen 0.2 E.U./dL (0.2 - 1.0) 12/15/17 16:30 Ur Leukocyte Esterase NEGATIVE (NEGATIVE) 12/15/17 16:30 Urine RBC 2-5 /hpf (0-5) H 12/15/17 16:30 Urine WBC 2-5 /hpf (0-5) 12/15/17 16:30 Ur Epithelial Cells RARE /lpf (FEW) 12/15/17 16:30 Urine Bacteria OCCASIONAL /hpf (NONE SEEN) 12/15/17 16:30 Stool Occult Blood POSITIVE (NEGATIVE) H 12/13/17 13:20 Blood Type A POSITIVE 12/15/17 06:20 Antibody Screen NEGATIVE 12/15/17 06:20 Crossmatch See Detail 12/15/17 06:20 - Physical Exam Vitals and I&O: Vital Signs Temp 98.1 F 12/17/17 11:31 Pulse 84 12/17/17 12:52 Resp 18 12/17/17 12:52 BP 145/82 12/17/17 11:31 Pulse Ox 100 12/17/17 12:52 Intake & Output 12/16/17 12/17/17 12/17/17 18:59 06:59 18:59 Intake Total 500 800 Output Total 752 350 Balance -252 450 Weight (lbs) 73.936 kg 89.811 kg Intake: Intake, IV Amount 150 150 Albumin 25% 12.5gm/50mL 50 12.5 gm In 50 ml @ 50 mls /hr IV Q8HR [facility] Rx#: [id number] Piperacillin Sodium/ 100 150 Tazobact 3.375 gm In Sodium Chloride 0.9% 50 ml @ 100 mls/hr IV Q6HR [facility] Rx#:[id number] Tube Feeding 250 650 Albumin 100 Output: Urine 750 350 Stool 2 Other: # Bowel Movements 1 Active Medications: Current Medications Acetaminophen (Tylenol 650mg Supp) 650 mg RC Q4H PRN PRN Reason: Fever > 101 Stop: 02/08/18 23:09 Albuterol/Ipratropium (Duoneb Neb) 3 ml HHN Q6HRT [facility] Stop: 02/09/18 00:59 Last Admin: 12/17/17 12:52 Dose: 3 ml Amlodipine Besylate (Norvasc) 5 mg GT DAILY [facility] Stop: 02/09/18 08:59 Last Admin: 12/17/17 09:03 Dose: 5 mg Atorvastatin Calcium (Lipitor) 20 mg GT HS [facility] Stop: 02/09/18 20:59 Last Admin: 12/16/17 21:03 Dose: 20 mg Carvedilol (Coreg) 3.125 mg GT BID [facility] Stop: 02/09/18 08:59 Last Admin: 12/17/17 09:05 Dose: 3.125 mg [place] Balsam/Trypsin (Venelex) 1 appl TP DAILY [facility] Stop: 02/09/18 08:59 Last Admin: 12/16/17 09:37 Dose: 1 appl Dextrose (D50w) 50 ml IVP PRN PRN PRN Reason: Blood Glucose less than 70 Stop: 02/13/18 15:17 Dextrose (Glutose 40%) 18.75 gm PO PRN PRN PRN Reason: Blood Glucose less than 70 Stop: 02/13/18 15:17 Diltiazem HCl (Cardizem) 20 mg IVP Q4HR PRN PRN Reason: HR above 110 Stop: 02/08/18 23:09 Last Admin: 12/12/17 23:15 Dose: 20 mg Fluconazole (Diflucan) 100 mg PO DAILY [facility] Stop: 02/09/18 08:59 Last Admin: 12/17/17 09:03 Dose: 100 mg Folic Acid (Folate) 1 mg GT DAILY [facility] Stop: 02/10/18 08:59 Last Admin: 12/17/17 09:04 Dose: 1 mg Glucagon (Glucagen) 1 mg IM PRN PRN PRN Reason: Blood Glucose less than 70 Stop: 02/13/18 15:17 Piperacillin Sod/Tazobactam (Sod 3.375 gm/ Sodium Chloride) 50 mls @ 100 mls/ hr IV Q6HR [facility] Stop: 02/09/18 00:00 Last Admin: 12/17/17 12:31 Dose: 100 mls/hr Dextrose (D5w) 1,000 mls @ 75 mls/hr IV .[id number] [facility] Stop: 02/13/18 14:34 Last Admin: 12/16/17 15:45 Dose: 75 mls/hr Insulin Aspart (Novolog Insulin Sliding Scale) 0 units SUBQ Q6HR [facility] PRN Reason: Protocol Stop: 02/09/18 00:00 Last Admin: 12/17/17 12:37 Dose: Not Given Insulin Detemir (Levemir Insulin) 14 units SUBQ BID [facility]AN PRN Reason: Protocol Stop: 02/09/18 08:59 Last Admin: 12/17/17 09:09 Dose: 14 units Miscellaneous (Probiotic Screen) 1 ea MC PRN PRN PRN Reason: PROTOCOL Stop: 02/10/18 17:05 Miscellaneous (Vte Chemical Prophylaxis Screen/ Admission) 1 ea MC PRN PRN PRN Reason: PROTOCOL Stop: 02/13/18 10:23 Morphine Sulfate (Morphine) 1 mg IVP Q4HR PRN PRN Reason: Pain (Severe) Stop: 02/10/18 23:46 Last Admin: 12/14/17 18:10 Dose: 1 mg Neomycin/Polymyxin/Bacitracin (Triple Antibiotic Pkt) 1 pkt TP DAILY [facility] Stop: 02/09/18 08:59 Last Admin: 12/17/17 09:03 Dose: 1 pkt Nystatin (Nystop) 0 units TP BID [facility] Stop: 02/13/18 20:29 Last Admin: 12/16/17 16:02 Dose: 100,000 units Pantoprazole Sodium (Protonix) 40 mg IVP BID [facility] Stop: 02/09/18 08:59 Last Admin: 12/17/17 09:03 Dose: 40 mg Potassium Chloride (Klor-Con) 20 meq PO DAILY [facility] Stop: 02/15/18 13:59 General: No acute distress HEENT: PERRLA, EOMI, Mucous membr. moist/pink Neck: Supple, +2 carotid pulse wo bruit Cardiovascular: Regular rate, Normal S1, Normal S2 Lungs: Other (decreased BS) Abdomen: Bowel sounds, Soft Extremities: Other (upper ext), no Edema Neurological: Sensation intact Skin: no Rash Psych/Mental Status: Mood NL - Procedures Procedures: Procedures Procedure Code Date BLOOD TRANSFUSION SERVICE 18130 12/10/17 EXCISION OF STOMACH, ENDO, DIAGN [id number] 11/15/17 INSERT TUNNELED CV CATH [id number] 11/15/17 INSERTION OF FEEDING DEVICE INTO STOMACH, ENDO [id number] 11/15/17 INSERTION OF INFUSION DEV INTO R SUBCLAV VEIN, PERC APPROACH [id number] 11/15/17 PERFORMANCE OF URINARY FILTRATION, <6 HRS/DAY [id number] 11/15/17 REMOVAL OF INFUSION DEVICE FROM UPPER VEIN, PERC APPROACH [id number] 11/15/17 TRANSFUSE NONAUT RED BLOOD CELLS IN PERIPH VEIN, PERC 44044A3 12/10/17 ULTRASONOGRAPHY OF RIGHT SUBCLAVIAN VEIN, GUIDANCE [id number] 11/15/17 Assessment/Plan - Assessment Assessment: * Anemia gauthier is positive for occult blood; otherwise no evidence of deficiency hgb unstable; transfuse prn and follow GI recs Continue gastric tube feeding Nutritional Asmnt/Malnutr-PDOC - Dietary Evaluation Malnutrition Findings (Please click <Entered> for more info): Nutritional Asmnt/Malnutrition Start: 12/13/17 16: 00 Text: Status: Complete Freq: Document 12/13/17 16:00 HEN (Rec: 12/13/17 16:22 [email or web address] [email or web address]) Nutritional Asmnt/Malnutrition Patient General Information Nutritional Screening High Risk Consult Diagnosis sepsis, PNA, rsepiratory failure, PENNY Pertinent Medical Hx/Surgical Hx DM, HTN, dementia, psychotic dysphagia Subjective Information Pt seen resting in bed at time of visit. TF was off at this time. Spoke with RN, RN reported pt tolerated TF well. Current Diet Order/ Nutrition Support novosource 50ml x 20hr, providing 2000kcal, 91g protein Pertinent Medications D5w, folate, glucagen, novolog , levemir, triple antibiotic pkt, protonix, piperacillin Pertinent Labs 2/5 Na 158, K 3.6, Cl 127, BUN 65, Cr 1.3, Glucose 240, POC 170-249 Nutritional Hx/Data Height 1.85 m Height (Calculated Centimeters) 185.4 Current Weight (lbs) 68.039 kg Weight (Calculated Kilograms) 68.0 Weight (Calculated Grams) 86926.9 [place] Body Weight 184 % [place] Body Weight 82 Body Mass Index (BMI) 19.8 Weight Status Approriate GI Symptoms GI Symptoms None Last BM 2/5 Difficult in: None Skin Integrity/Comment: decubitus ulceration to right buttocks, bruise to RUE, maceration to scrotum Estimated Nutritional Goals BEE in Kcals: Using Current wt Calories/Kcals/Kg 27-32 Kcals Calculated 4936-8877 Protein: Using Current wt Protein g/k.2-1.4 monitor renal labs Protein Calculated 81-95 Fluid: ml 1836-2176ml (1ml/kcal) Nutritional Problem 1. Problem Problem altered nutrition related lab values Etiology dx of PENNY, hx of DM Signs/Symptoms: Na 158, BUN 65, Glucose 240, POC 170-249 Malnutrition Alert Protein-Calorie Malnutrition N/A Is there a minimum of two criteria No selected? Query Text:Check all the applicable criteria. A minimum of two criteria are recommended for diagnosis of either severe or non-severe malnutrition. Intervention/Recommendation Comments 1. Continue with current TF regimen. It provides 2000kcal, 91g protein, meeting 100% of nutritional needs 2. Monitor TF rate, tolerance, wt weekly, skin integrity and labs 3. F/U as moderate risk in 3-5 days, 12/16-12/18 Expected Outcomes/Goals Expected Outcomes/Goals 1. Pt to meet at least 75% of nutritional needs via nutrition support with tolerance 2. Wt stability, skin to remain intact, labs to approach WNL.
[2017-12-17] MEDS: NYSTATIN 100000 UNITS/GM POWD TP SCH (17:21)
[2017-12-17] MEDS: Venelex 60gm Tube TP SCH (17:21)
[2017-12-17] MEDS: Potassium Chloride 20 mEq ER Tab PO SCH (17:23)
[2017-12-17] MEDS: Dextrose 5% 1,000 ML IV SCH (17:28)
--- NOTE | 2017-12-17 18:19 | Progress Notes ---
DATE: 12/17/2017 The patient had endoscopy yesterday, was found to have a bleeding area in the duodenum and ulcer in the duodenum. He is tolerating G-tube feeding and Torres catheter is draining well. PHYSICAL EXAMINATION: VITAL SIGNS: His temperature is 98.1, heart rate 84, blood pressure 145/82, respirations 18, saturating 100%. ABDOMEN: Soft, nontender, nondistended. Scrotum unchanged. Skin edema only. Torres catheter, no blood. EXTREMITIES: Right upper arm has significant swelling and the PICC line was removed. Lower extremities, trace edema. LABORATORY DATA: Sodium 150, remains high, potassium 3.4, BUN 32, creatinine 0.9, sugar levels 165 and 186 today, and hemoglobin stable at 10.0, white count stable at 7.5. IMPRESSION: 1. Scrotal swelling, mostly resolved, was edema, some residual remaining. 2. Gross hematuria, possible bladder lesion, needs to follow up and may require cystoscopy. 3. Incidental asymptomatic renal stones, stable. 4. Diabetes, controlled. 5. GI bleed. Diagnosed as duodenal ulcer, under medical therapy. 6. History of schizophrenia. No change. 7. Anemia, hemoglobin stable. JOB# [id number]
--- NOTE | 2017-12-17 19:22 | Internal Medicine Prog Note ---
Internal Medicine Subjective - Subjective Service Date: 12/17/17 Patient seen and examined:: with staff Patient is:: non-verbal, in bed, confused Per staff patient has:: no adverse event Internal Medicine Objective - Results Result Diagrams: 12/17/17 05:50 12/17/17 05:50 Recent Labs: Laboratory Last Values WBC 7.5 Th/cmm (4.8-10.8) 12/17/17 05:50 Corrected WBC (auto) 4.4 Th/cmm 12/12/17 23:59 RBC 3.10 Mil/cmm (3.80-5.80) L 12/17/17 05:50 Hgb 10.0 gm/dL (12-16) L 12/17/17 05:50 Hct 29.4 % (41.0-60) L 12/17/17 05:50 MCV 94.7 fl (80-99) 12/17/17 05:50 MCH 32.2 pg (27.0-31.0) H 12/17/17 05:50 MCHC Differential 34.0 pg (28.0-36.0) 12/17/17 05:50 RDW 15.2 % (11.5-20.0) 12/17/17 05:50 Plt Count 179 Th/cmm (150-400) D 12/17/17 05:50 MPV 10.4 fl 12/17/17 05:50 Neutrophils % 80.4 % (40.0-80.0) H 12/17/17 05:50 Band Neutrophils % 10 % (0-10) 12/12/17 23:59 Lymphocytes % 14.2 % (20.0-50.0) L 12/17/17 05:50 Monocytes % 4.3 % (2.0-10.0) 12/17/17 05:50 Eosinophils % 1.0 % (0.0-5.0) 12/17/17 05:50 Basophils % 0.1 % (0.0-2.0) 12/17/17 05:50 Neutrophils (Manual) 60 % (40-80) 12/12/17 23:59 Lymphocytes 20 % (20-50) 12/12/17 23:59 Monocytes 6 % (2-10) 12/12/17 23:59 Eosinophils 4 % (0-5) 12/12/17 23:59 Nucleated RBCs 6.0 % (0-0) H 12/12/17 23:59 Platelet Estimate SLIGHT DECREASED (NORMAL) 12/12/17 23:59 Platelet Morphology GIANT PLATELETS SEEN (NORMAL) 12/11/17 17:58 Polychromasia 1+ 12/11/17 17:58 Anisocytosis 1+ 12/11/17 17:58 RBC Morph Micro Appear ABNORMAL (NORMAL) 12/11/17 17:58 PT 11.9 SECONDS (9.5-11.5) H 12/15/17 06:20 INR 1.13 (0.5-1.4) 12/15/17 06:20 PTT (Actin FS) 26.9 SECONDS (26.0-38.0) 12/15/17 06:20 Specimen Source Arterial 12/10/17 14:05 Sample Site Left Radial 12/10/17 14:05 pH 7.51 (7.35-7.45) H 12/10/17 14:05 pCO2 36.0 mmHg (35.0-45.0) 12/10/17 14:05 pO2 102.0 mmHg (80.0-100.0) H 12/10/17 14:05 HCO3 29.2 mEq/L (20.0-26.0) H 12/10/17 14:05 Base Excess 5.5 mEq/L (-3.0-3.0) H 12/10/17 14:05 O2 Saturation 98.0 % (92.0-100.0) 12/10/17 14:05 Mario Test YES 12/10/17 14:05 Vent Rate NA 12/10/17 14:05 Inspired O2 50 12/10/17 14:05 Tidal Volume NA 12/10/17 14:05 PEEP NA 12/10/17 14:05 Pressure (ins/psv/peep) NA 12/10/17 14:05 Critical Value E.PICHARDO 12/10/17 14:05 Sodium 150 mEq/L (136-145) H 12/17/17 05:50 Potassium 3.4 mEq/L (3.5-5.1) L 12/17/17 05:50 Chloride 121 mEq/L (98-107) H 12/17/17 05:50 Carbon Dioxide 23.0 mEq/L (21.0-31.0) 12/17/17 05:50 Anion Gap 9.4 (7.0-16.0) 12/17/17 05:50 BUN 32 mg/dL (7-25) H 12/17/17 05:50 Creatinine 0.9 mg/dL (0.7-1.3) 12/17/17 05:50 Est GFR ( Amer) TNP 12/17/17 05:50 Est GFR (Non-Af Amer) TNP 12/17/17 05:50 BUN/Creatinine Ratio 35.6 12/17/17 05:50 Glucose 199 mg/dL (70-105) H 12/17/17 05:50 POC Glucose 81 MG/DL (70 - 105) 12/17/17 17:49 Hemoglobin A1c % 6.4 % (4.0-6.0) H 12/11/17 05:30 Whole Bld Lactic Acid 1.12 mmol/L (0.60-1.99) 12/11/17 07:37 Calcium 8.1 mg/dL (8.6-10.3) L 12/17/17 05:50 Phosphorus 2.7 mg/dL (2.5-5.0) 12/16/17 06:50 Magnesium 2.0 mg/dL (1.9-2.7) 12/17/17 05:50 Iron 26 ug/dL (38-169) L 12/11/17 05:30 TIBC 161 ug/dL (250-450) L 12/11/17 05:30 Iron Saturation 16 % (15-55) 12/11/17 05:30 Unsaturated IBC 135 ug/dL (111-343) 12/11/17 05:30 Ferritin 513 ng/mL (30-400) H 12/11/17 05:30 Total Bilirubin 0.5 mg/dL (0.3-1.0) 12/16/17 06:50 AST 96 U/L (13-39) H 12/16/17 06:50 ALT 95 U/L (7-52) H 12/16/17 06:50 Alkaline Phosphatase 169 U/L (34-104) H 12/16/17 06:50 Troponin I 0.44 ng/mL (0.01-0.05) H* D 12/10/17 14:06 B-Natriuretic Peptide 532.0 pg/mL (5.0-100.0) H 12/10/17 14:06 Total Protein 4.7 gm/dL (6.0-8.3) L 12/16/17 06:50 Albumin 2.4 gm/dL (4.2-5.5) L 12/16/17 06:50 Globulin 2.3 gm/dL 12/16/17 06:50 Albumin/Globulin Ratio 1.0 (1.0-1.8) 12/16/17 06:50 Vitamin B12 1620 pg/mL (232-1245) H 12/11/17 05:30 Folic Acid >20.0 ng/mL (>3.0) 12/11/17 05:30 Urine Source [place] 12/15/17 16:30 Urine Color YELLOW 12/15/17 16:30 Urine Clarity CLEAR (CLEAR) 12/15/17 16:30 Urine pH 6.0 (4.6 - 8.0) 12/15/17 16:30 Ur Specific [place] 1.015 (1.005-1.030) 12/15/17 16:30 Urine Protein 30 mg/dL (NEGATIVE) H 12/15/17 16:30 Urine Glucose (UA) NEGATIVE mg/dL (NEGATIVE) 12/15/17 16:30 Urine Ketones NEGATIVE mg/dL (NEGATIVE) 12/15/17 16:30 Urine Blood LARGE (NEGATIVE) H 12/15/17 16:30 Urine Nitrate NEGATIVE (NEGATIVE) 12/15/17 16:30 Urine Bilirubin NEGATIVE (NEGATIVE) 12/15/17 16:30 Urine Urobilinogen 0.2 E.U./dL (0.2 - 1.0) 12/15/17 16:30 Ur Leukocyte Esterase NEGATIVE (NEGATIVE) 12/15/17 16:30 Urine RBC 2-5 /hpf (0-5) H 12/15/17 16:30 Urine WBC 2-5 /hpf (0-5) 12/15/17 16:30 Ur Epithelial Cells RARE /lpf (FEW) 12/15/17 16:30 Urine Bacteria OCCASIONAL /hpf (NONE SEEN) 12/15/17 16:30 Stool Occult Blood POSITIVE (NEGATIVE) H 12/13/17 13:20 Helicobacter pylori Ab NEGATIVE (NEGATIVE) 12/16/17 14:40 Blood Type A POSITIVE 12/15/17 06:20 Antibody Screen NEGATIVE 12/15/17 06:20 Crossmatch See Detail 12/15/17 06:20 - Physical Exam Vitals and I&O: Vital Signs Temp 97.8 F 12/17/17 15:21 Pulse 98 12/17/17 17:17 Resp 17 12/17/17 15:21 BP 137/72 12/17/17 17:17 Pulse Ox 99 12/17/17 15:21 Intake & Output 12/17/17 12/17/17 12/18/17 06:59 18:59 06:59 Intake Total 1800 50 Output Total 350 Balance 1450 50 Weight (lbs) 89.811 kg Intake: Intake, IV Amount 1150 50 Dextrose 5% 1,000 ml @ 75 1000 mls/hr IV .[id number] [facility] Rx#:[id number] Piperacillin Sodium/ 150 50 Tazobact 3.375 gm In Sodium Chloride 0.9% 50 ml @ 100 mls/hr IV Q6HR [facility] Rx#:[id number] Tube Feeding 650 Output: Urine 350 Other: # Bowel Movements 1 Active Medications: Current Medications Acetaminophen (Tylenol 650mg Supp) 650 mg RC Q4H PRN PRN Reason: Fever > 101 Stop: 02/08/18 23:09 Albuterol/Ipratropium (Duoneb Neb) 3 ml HHN Q6HRT [facility] Stop: 02/09/18 00:59 Last Admin: 12/17/17 12:52 Dose: 3 ml Amlodipine Besylate (Norvasc) 5 mg GT DAILY RYAN Stop: 02/09/18 08:59 Last Admin: 12/17/17 09:03 Dose: 5 mg Atorvastatin Calcium (Lipitor) 20 mg GT HS [facility] Stop: 02/09/18 20:59 Last Admin: 12/16/17 21:03 Dose: 20 mg Carvedilol (Coreg) 3.125 mg GT BID [facility] Stop: 02/09/18 08:59 Last Admin: 12/17/17 17:17 Dose: 3.125 mg [place] Oil/Hungarian Balsam/Trypsin (Venelex) 1 appl TP DAILY RYAN Stop: 02/09/18 08:59 Last Admin: 12/17/17 17:21 Dose: 1 appl Dextrose (D50w) 50 ml IVP PRN PRN PRN Reason: Blood Glucose less than 70 Stop: 02/13/18 15:17 Dextrose (Glutose 40%) 18.75 gm PO PRN PRN PRN Reason: Blood Glucose less than 70 Stop: 02/13/18 15:17 Diltiazem HCl (Cardizem) 20 mg IVP Q4HR PRN PRN Reason: HR above 110 Stop: 02/08/18 23:09 Last Admin: 12/12/17 23:15 Dose: 20 mg Fluconazole (Diflucan) 100 mg PO DAILY [facility] Stop: 02/09/18 08:59 Last Admin: 12/17/17 09:03 Dose: 100 mg Folic Acid (Folate) 1 mg GT DAILY [facility] Stop: 02/10/18 08:59 Last Admin: 12/17/17 09:04 Dose: 1 mg Glucagon (Glucagen) 1 mg IM PRN PRN PRN Reason: Blood Glucose less than 70 Stop: 02/13/18 15:17 Piperacillin Sod/Tazobactam (Sod 3.375 gm/ Sodium Chloride) 50 mls @ 100 mls/ hr IV Q6HR [facility] Stop: 02/09/18 00:00 Last Admin: 12/17/17 17:17 Dose: 100 mls/hr Dextrose (D5w) 1,000 mls @ 75 mls/hr IV .[id number] [facility] Stop: 02/13/18 14:34 Last Admin: 12/17/17 17:28 Dose: 75 mls/hr Insulin Aspart (Novolog Insulin Sliding Scale) 0 units SUBQ Q6HR RYAN PRN Reason: Protocol Stop: 02/09/18 00:00 Last Admin: 12/17/17 17:51 Dose: Not Given Insulin Detemir (Levemir Insulin) 14 units SUBQ BID RYAN PRN Reason: Protocol Stop: 02/09/18 08:59 Last Admin: 12/17/17 17:52 Dose: 14 units Miscellaneous (Probiotic Screen) 1 ea MC PRN PRN PRN Reason: PROTOCOL Stop: 02/10/18 17:05 Miscellaneous (Vte Chemical Prophylaxis Screen/ Admission) 1 ea MC PRN PRN PRN Reason: PROTOCOL Stop: 02/13/18 10:23 Morphine Sulfate (Morphine) 1 mg IVP Q4HR PRN PRN Reason: Pain (Severe) Stop: 02/10/18 23:46 Last Admin: 12/14/17 18:10 Dose: 1 mg Neomycin/Polymyxin/Bacitracin (Triple Antibiotic Pkt) 1 pkt TP DAILY RYAN Stop: 02/09/18 08:59 Last Admin: 12/17/17 09:03 Dose: 1 pkt Nystatin (Nystop) 0 units TP BID RYAN Stop: 02/13/18 20:29 Last Admin: 12/17/17 17:21 Dose: 100,000 units Pantoprazole Sodium (Protonix) 40 mg IVP BID RYAN Stop: 02/09/18 08:59 Last Admin: 12/17/17 17:51 Dose: 40 mg Potassium Chloride (Klor-Con) 20 meq PO DAILY RYAN Stop: 02/15/18 13:59 Last Admin: 12/17/17 17:23 Dose: 20 meq General: weak, demented HEENT: NC/AT, PERRLA, EOMI, anicteric sclerae, throat clear Neck: Supple, No JVD, No thyromegaly, +2 carotid pulse wo bruit, No LAD, + JVD Lungs: CTAB Cardiovascular: RRR, Normal S1, Normal S2, without murmur Abdomen: non-tender, non-distended Extremities: clear Neurological: no change - Procedures Procedures: Procedures Procedure Code Date BLOOD TRANSFUSION SERVICE 36846 12/10/17 EXCISION OF STOMACH, ENDO, DIAGN [id number] 11/15/17 INSERT TUNNELED CV CATH [id number] 11/15/17 INSERTION OF FEEDING DEVICE INTO STOMACH, ENDO [id number] 11/15/17 INSERTION OF INFUSION DEV INTO R SUBCLAV VEIN, PERC APPROACH [id number] 11/15/17 PERFORMANCE OF URINARY FILTRATION, <6 HRS/DAY [id number] 11/15/17 REMOVAL OF INFUSION DEVICE FROM UPPER VEIN, PERC APPROACH [id number] 11/15/17 TRANSFUSE NONAUT RED BLOOD CELLS IN PERIPH VEIN, PERC [id number] 12/10/17 ULTRASONOGRAPHY OF RIGHT SUBCLAVIAN VEIN, GUIDANCE [id number] 11/15/17 Internal Medicine Assmt/Plan - Assessment Assessment: 1.ASPIRATION PNEUMONIA. 2.SEPSIS. 3.ANEMIA. 4.DEHYDRATION 5.HEMATUREA - Plan Plan: CONTINUE ON CURRENT MEDICATION AND DIET. Nutritional Asmnt/Malnutr-PDOC - Dietary Evaluation Malnutrition Findings (Please click <Entered> for more info): Nutritional Asmnt/Malnutrition Start: 12/13/17 16: 00 Text: Status: Complete Freq: Document 12/13/17 16:00 LISA (Rec: 12/13/17 16:22 LISA [email or web address]) Nutritional Asmnt/Malnutrition Patient General Information Nutritional Screening High Risk Consult Diagnosis sepsis, PNA, rsepiratory failure, PENNY Pertinent Medical Hx/Surgical Hx DM, HTN, dementia, psychotic dysphagia Subjective Information Pt seen resting in bed at time of visit. TF was off at this time. Spoke with RN, RN reported pt tolerated TF well. Current Diet Order/ Nutrition Support novosource 50ml x 20hr, providing 2000kcal, 91g protein Pertinent Medications D5w, folate, glucagen, novolog , levemir, triple antibiotic pkt, protonix, piperacillin Pertinent Labs 2/5 Na 158, K 3.6, Cl 127, BUN 65, Cr 1.3, Glucose 240, POC 170-249 Nutritional Hx/Data Height 1.85 m Height (Calculated Centimeters) 185.4 Current Weight (lbs) 68.039 kg Weight (Calculated Kilograms) 68.0 Weight (Calculated Grams) 87231.9 [place] Body Weight 184 % [place] Body Weight 82 Body Mass Index (BMI) 19.8 Weight Status Approriate GI Symptoms GI Symptoms None Last BM 2/5 Difficult in: None Skin Integrity/Comment: decubitus ulceration to right buttocks, bruise to RUE, maceration to scrotum Estimated Nutritional Goals BEE in Kcals: Using Current wt Calories/Kcals/Kg 27-32 Kcals Calculated 6600-3381 Protein: Using Current wt Protein g/k.2-1.4 monitor renal labs Protein Calculated 81-95 Fluid: ml 1836-2176ml (1ml/kcal) Nutritional Problem 1. Problem Problem altered nutrition related lab values Etiology dx of PENNY, hx of DM Signs/Symptoms: Na 158, BUN 65, Glucose 240, POC 170-249 Malnutrition Alert Protein-Calorie Malnutrition N/A Is there a minimum of two criteria No selected? Query Text:Check all the applicable criteria. A minimum of two criteria are recommended for diagnosis of either severe or non-severe malnutrition. Intervention/Recommendation Comments 1. Continue with current TF regimen. It provides 2000kcal, 91g protein, meeting 100% of nutritional needs 2. Monitor TF rate, tolerance, wt weekly, skin integrity and labs 3. F/U as moderate risk in 3-5 days, 12/16-12/18 Expected Outcomes/Goals Expected Outcomes/Goals 1. Pt to meet at least 75% of nutritional needs via nutrition support with tolerance 2. Wt stability, skin to remain intact, labs to approach WNL.
[2017-12-17] MEDS: Atorvastatin Calcium 10 MG TAB GT SCH (20:58)
[2017-12-18] MEDS: INSULIN ASPART SLIDING SCALE 100 UNITS/ML UNIT SUBQ SCH ×4 (00:49→17:31)
[2017-12-18] MEDS: Albuterol/Ipratropium Neb 3 ML AERS HHN SCH ×4 (01:19→19:07)
[2017-12-18 07:24] LABS: ANION GAP 8.7 (7.0-16.0); BUN - UREA NITROGEN 26 mg/dL (7-25); CALCIUM SERUM 8.4 mg/dL (8.6-10.3); CARBON DIOXIDE 24.3 mEq/L (21.0-31.0); CHLORIDE 118 mEq/L (98-107); CREATININE - SERUM 0.8 mg/dL (0.7-1.3); GLUCOSE 143 mg/dL (70-105); SODIUM SERUM 148 mEq/L (136-145)
--- NOTE | 2017-12-18 08:29 | Diagnostic Imaging Report ---
Portable chest x-ray HISTORY: Shortness of breath Compared with prior exam of October 14, 2018, the heart remains enlarged. There is slightly improved visualization of the left lower lobe. Suggestion of bilateral pleural effusions. IMPRESSION: 1. Slight improved visualization of the left lower lobe 2. Evidence of small bilateral pleural effusions 3. Persistent cardiomegaly with atherosclerotic vascular changes
[2017-12-18] MEDS ORDERED: Potassium Chloride Elixir 20 mEq /15 mL UDC GT ONE ×2 (09:03)
[2017-12-18] MEDS ORDERED: Potassium Chloride Elixir 20 mEq /15 mL UDC PO ONE ×2 (09:30→14:00)
[2017-12-18] MEDS: Triple Antibiotic 0.94 gm Pkt TP SCH (09:39)
[2017-12-18] MEDS: Insulin Detemir 100 units/mL 10mL Vial SUBQ SCH ×2 (09:40→17:31)
[2017-12-18] MEDS: Potassium Chloride 20 mEq ER Tab PO SCH (11:11)
[2017-12-18] MEDS: NYSTATIN 100000 UNITS/GM POWD TP SCH ×2 (13:15→16:24)
[2017-12-18] MEDS: Venelex 60gm Tube TP SCH (13:15)
--- NOTE | 2017-12-18 13:57 | General Progress Note ---
Subjective - Review of Systems Service Date: 12/18/17 Subjective: more awake, conversing, comfortable Objective - Results Result Diagrams: 12/17/17 05:50 12/18/17 06:00 Recent Labs: Laboratory Last Values WBC 7.5 Th/cmm (4.8-10.8) 12/17/17 05:50 Corrected WBC (auto) 4.4 Th/cmm 12/12/17 23:59 RBC 3.10 Mil/cmm (3.80-5.80) L 12/17/17 05:50 Hgb 10.0 gm/dL (12-16) L 12/17/17 05:50 Hct 29.4 % (41.0-60) L 12/17/17 05:50 MCV 94.7 fl (80-99) 12/17/17 05:50 MCH 32.2 pg (27.0-31.0) H 12/17/17 05:50 MCHC Differential 34.0 pg (28.0-36.0) 12/17/17 05:50 RDW 15.2 % (11.5-20.0) 12/17/17 05:50 Plt Count 179 Th/cmm (150-400) D 12/17/17 05:50 MPV 10.4 fl 12/17/17 05:50 Neutrophils % 80.4 % (40.0-80.0) H 12/17/17 05:50 Band Neutrophils % 10 % (0-10) 12/12/17 23:59 Lymphocytes % 14.2 % (20.0-50.0) L 12/17/17 05:50 Monocytes % 4.3 % (2.0-10.0) 12/17/17 05:50 Eosinophils % 1.0 % (0.0-5.0) 12/17/17 05:50 Basophils % 0.1 % (0.0-2.0) 12/17/17 05:50 Neutrophils (Manual) 60 % (40-80) 12/12/17 23:59 Lymphocytes 20 % (20-50) 12/12/17 23:59 Monocytes 6 % (2-10) 12/12/17 23:59 Eosinophils 4 % (0-5) 12/12/17 23:59 Nucleated RBCs 6.0 % (0-0) H 12/12/17 23:59 Platelet Estimate SLIGHT DECREASED (NORMAL) 12/12/17 23:59 Platelet Morphology GIANT PLATELETS SEEN (NORMAL) 12/11/17 17:58 Polychromasia 1+ 12/11/17 17:58 Anisocytosis 1+ 12/11/17 17:58 RBC Morph Micro Appear ABNORMAL (NORMAL) 12/11/17 17:58 PT 11.9 SECONDS (9.5-11.5) H 12/15/17 06:20 INR 1.13 (0.5-1.4) 12/15/17 06:20 PTT (Actin FS) 26.9 SECONDS (26.0-38.0) 12/15/17 06:20 Specimen Source Arterial 12/10/17 14:05 Sample Site Left Radial 12/10/17 14:05 pH 7.51 (7.35-7.45) H 12/10/17 14:05 pCO2 36.0 mmHg (35.0-45.0) 12/10/17 14:05 pO2 102.0 mmHg (80.0-100.0) H 12/10/17 14:05 HCO3 29.2 mEq/L (20.0-26.0) H 12/10/17 14:05 Base Excess 5.5 mEq/L (-3.0-3.0) H 12/10/17 14:05 O2 Saturation 98.0 % (92.0-100.0) 12/10/17 14:05 Mario Test YES 12/10/17 14:05 Vent Rate NA 12/10/17 14:05 Inspired O2 50 12/10/17 14:05 Tidal Volume NA 12/10/17 14:05 PEEP NA 12/10/17 14:05 Pressure (ins/psv/peep) NA 12/10/17 14:05 Critical Value E.PICHARDO 12/10/17 14:05 Sodium 148 mEq/L (136-145) H 12/18/17 06:00 Potassium 3.0 mEq/L (3.5-5.1) L 12/18/17 06:00 Chloride 118 mEq/L (98-107) H 12/18/17 06:00 Carbon Dioxide 24.3 mEq/L (21.0-31.0) 12/18/17 06:00 Anion Gap 8.7 (7.0-16.0) 12/18/17 06:00 BUN 26 mg/dL (7-25) H 12/18/17 06:00 Creatinine 0.8 mg/dL (0.7-1.3) 12/18/17 06:00 Est GFR ( Amer) TNP 12/18/17 06:00 Est GFR (Non-Af Amer) TNP 12/18/17 06:00 BUN/Creatinine Ratio 32.5 12/18/17 06:00 Glucose 143 mg/dL (70-105) H 12/18/17 06:00 POC Glucose 97 MG/DL (70 - 105) 12/18/17 12:04 Hemoglobin A1c % 6.4 % (4.0-6.0) H 12/11/17 05:30 Whole Bld Lactic Acid 1.12 mmol/L (0.60-1.99) 12/11/17 07:37 Calcium 8.4 mg/dL (8.6-10.3) L 12/18/17 06:00 Phosphorus 2.7 mg/dL (2.5-5.0) 12/16/17 06:50 Magnesium 2.0 mg/dL (1.9-2.7) 12/17/17 05:50 Iron 26 ug/dL (38-169) L 12/11/17 05:30 TIBC 161 ug/dL (250-450) L 12/11/17 05:30 Iron Saturation 16 % (15-55) 12/11/17 05:30 Unsaturated IBC 135 ug/dL (111-343) 12/11/17 05:30 Ferritin 513 ng/mL (30-400) H 12/11/17 05:30 Total Bilirubin 0.5 mg/dL (0.3-1.0) 12/16/17 06:50 AST 96 U/L (13-39) H 12/16/17 06:50 ALT 95 U/L (7-52) H 12/16/17 06:50 Alkaline Phosphatase 169 U/L (34-104) H 12/16/17 06:50 Troponin I 0.44 ng/mL (0.01-0.05) H* D 12/10/17 14:06 B-Natriuretic Peptide 532.0 pg/mL (5.0-100.0) H 12/10/17 14:06 Total Protein 4.7 gm/dL (6.0-8.3) L 12/16/17 06:50 Albumin 2.4 gm/dL (4.2-5.5) L 12/16/17 06:50 Globulin 2.3 gm/dL 12/16/17 06:50 Albumin/Globulin Ratio 1.0 (1.0-1.8) 12/16/17 06:50 Vitamin B12 1620 pg/mL (232-1245) H 12/11/17 05:30 Folic Acid >20.0 ng/mL (>3.0) 12/11/17 05:30 Urine Source [place] 12/15/17 16:30 Urine Color YELLOW 12/15/17 16:30 Urine Clarity CLEAR (CLEAR) 12/15/17 16:30 Urine pH 6.0 (4.6 - 8.0) 12/15/17 16:30 Ur Specific Bow[place] 1.015 (1.005-1.030) 12/15/17 16:30 Urine Protein 30 mg/dL (NEGATIVE) H 12/15/17 16:30 Urine Glucose (UA) NEGATIVE mg/dL (NEGATIVE) 12/15/17 16:30 Urine Ketones NEGATIVE mg/dL (NEGATIVE) 12/15/17 16:30 Urine Blood LARGE (NEGATIVE) H 12/15/17 16:30 Urine Nitrate NEGATIVE (NEGATIVE) 12/15/17 16:30 Urine Bilirubin NEGATIVE (NEGATIVE) 12/15/17 16:30 Urine Urobilinogen 0.2 E.U./dL (0.2 - 1.0) 12/15/17 16:30 Ur Leukocyte Esterase NEGATIVE (NEGATIVE) 12/15/17 16:30 Urine RBC 2-5 /hpf (0-5) H 12/15/17 16:30 Urine WBC 2-5 /hpf (0-5) 12/15/17 16:30 Ur Epithelial Cells RARE /lpf (FEW) 12/15/17 16:30 Urine Bacteria OCCASIONAL /hpf (NONE SEEN) 12/15/17 16:30 Stool Occult Blood POSITIVE (NEGATIVE) H 12/13/17 13:20 Helicobacter pylori Ab NEGATIVE (NEGATIVE) 12/16/17 14:40 Blood Type A POSITIVE 12/15/17 06:20 Antibody Screen NEGATIVE 12/15/17 06:20 Crossmatch See Detail 12/15/17 06:20 - Physical Exam Vitals and I&O: Vital Signs Temp 98.9 F 12/18/17 12:00 Pulse 64 12/18/17 13:46 Resp 18 12/18/17 13:46 BP 142/91 12/18/17 12:00 Pulse Ox 98 12/18/17 13:46 Intake & Output 12/17/17 12/18/17 12/18/17 18:59 06:59 18:59 Intake Total 100 100 Output Total 100 Balance 100 0 Weight (lbs) 97.931 kg Intake: Intake, IV Amount 100 100 Piperacillin Sodium/ 100 100 Tazobact 3.375 gm In Sodium Chloride 0.9% 50 ml @ 100 mls/hr IV Q6HR [facility] Rx#:[id number] Output: Urine 100 Active Medications: Current Medications Acetaminophen (Tylenol 650mg Supp) 650 mg RC Q4H PRN PRN Reason: Fever > 101 Stop: 02/08/18 23:09 Albuterol/Ipratropium (Duoneb Neb) 3 ml HHN Q6HRT [facility] Stop: 02/09/18 00:59 Last Admin: 12/18/17 13:44 Dose: 3 ml Amlodipine Besylate (Norvasc) 5 mg GT DAILY [facility] Stop: 02/09/18 08:59 Last Admin: 12/18/17 09:39 Dose: 5 mg Atorvastatin Calcium (Lipitor) 20 mg GT HS [facility] Stop: 02/09/18 20:59 Last Admin: 12/17/17 20:58 Dose: 20 mg Carvedilol (Coreg) 3.125 mg GT BID [facility] Stop: 02/09/18 08:59 Last Admin: 12/18/17 09:41 Dose: Not Given Snowflake Oil/Fijian Balsam/Trypsin (Venelex) 1 appl TP DAILY [facility] Stop: 02/09/18 08:59 Last Admin: 12/18/17 13:15 Dose: 1 appl Dextrose (D50w) 50 ml IVP PRN PRN PRN Reason: Blood Glucose less than 70 Stop: 02/13/18 15:17 Dextrose (Glutose 40%) 18.75 gm PO PRN PRN PRN Reason: Blood Glucose less than 70 Stop: 02/13/18 15:17 Diltiazem HCl (Cardizem) 20 mg IVP Q4HR PRN PRN Reason: HR above 110 Stop: 02/08/18 23:09 Last Admin: 12/12/17 23:15 Dose: 20 mg Fluconazole (Diflucan) 100 mg PO DAILY [facility] Stop: 02/09/18 08:59 Last Admin: 12/18/17 09:40 Dose: 100 mg Folic Acid (Folate) 1 mg GT DAILY [facility] Stop: 02/10/18 08:59 Last Admin: 12/18/17 09:40 Dose: 1 mg Glucagon (Glucagen) 1 mg IM PRN PRN PRN Reason: Blood Glucose less than 70 Stop: 02/13/18 15:17 Piperacillin Sod/Tazobactam (Sod 3.375 gm/ Sodium Chloride) 50 mls @ 100 mls/ hr IV Q6HR [facility] Stop: 02/09/18 00:00 Last Admin: 12/18/17 13:14 Dose: 100 mls/hr Dextrose (D5w) 1,000 mls @ 75 mls/hr IV .[id number] [facility] Stop: 02/13/18 14:34 Last Admin: 12/17/17 17:28 Dose: 75 mls/hr Insulin Aspart (Novolog Insulin Sliding Scale) 0 units SUBQ Q6HR [facility] PRN Reason: Protocol Stop: 02/09/18 00:00 Last Admin: 12/18/17 12:07 Dose: Not Given Insulin Detemir (Levemir Insulin) 14 units SUBQ BID [facility] PRN Reason: Protocol Stop: 02/09/18 08:59 Last Admin: 12/18/17 09:40 Dose: 14 units Miscellaneous (Probiotic Screen) 1 ea MC PRN PRN PRN Reason: PROTOCOL Stop: 02/10/18 17:05 Miscellaneous (Vte Chemical Prophylaxis Screen/ Admission) 1 ea MC PRN PRN PRN Reason: PROTOCOL Stop: 02/13/18 10:23 Morphine Sulfate (Morphine) 1 mg IVP Q4HR PRN PRN Reason: Pain (Severe) Stop: 02/10/18 23:46 Last Admin: 12/14/17 18:10 Dose: 1 mg Neomycin/Polymyxin/Bacitracin (Triple Antibiotic Pkt) 1 pkt TP DAILY [facility] Stop: 02/09/18 08:59 Last Admin: 12/18/17 09:39 Dose: 1 pkt Nystatin (Nystop) 0 units TP BID [facility] Stop: 02/13/18 20:29 Last Admin: 12/18/17 13:15 Dose: 100,000 units Pantoprazole Sodium (Protonix) 40 mg IVP BID [facility] Stop: 02/09/18 08:59 Last Admin: 12/18/17 09:39 Dose: 40 mg Potassium Chloride (Klor-Con) 20 meq PO DAILY [facility] Stop: 02/15/18 13:59 Last Admin: 12/18/17 11:11 Dose: Not Given Potassium Chloride (Potassium Chloride Elixir) 40 meq PO 1400 ONE Stop: 12/18/17 14:01 General: No acute distress HEENT: PERRLA, EOMI, Mucous membr. moist/pink Neck: Supple, +2 carotid pulse wo bruit Cardiovascular: Regular rate, Normal S1, Normal S2 Lungs: Other (decreased BS) Abdomen: Bowel sounds, Soft Extremities: Other (upper ext), no Edema Neurological: Sensation intact Skin: no Rash Psych/Mental Status: Mood NL - Procedures Procedures: Procedures Procedure Code Date BLOOD TRANSFUSION SERVICE 44231 12/10/17 EXCISION OF STOMACH, ENDO, DIAGN [id number] 11/15/17 INSERT TUNNELED CV CATH 44293 11/15/17 INSERTION OF FEEDING DEVICE INTO STOMACH, ENDO [id number] 11/15/17 INSERTION OF INFUSION DEV INTO R SUBCLAV VEIN, PERC APPROACH [id number] 11/15/17 PERFORMANCE OF URINARY FILTRATION, <6 HRS/DAY [id number] 11/15/17 REMOVAL OF INFUSION DEVICE FROM UPPER VEIN, PERC APPROACH [id number] 11/15/17 TRANSFUSE NONAUT RED BLOOD CELLS IN PERIPH VEIN, PERC 45366A2 12/10/17 ULTRASONOGRAPHY OF RIGHT SUBCLAVIAN VEIN, GUIDANCE [id number] 11/15/17 Assessment/Plan - Assessment Assessment: PENNY Hypernatremia, Hypokalemia CVA Type 2 DM Ess Htn Thrombocytopenia Severe Anemia B/L Scrotal Hydrocele Left HAP - Plan Plan: Lab - Result Diagrams 12/13/17 07:45 12/13/17 07:45 Current Medications Acetaminophen (Tylenol 650mg Supp) 650 mg RC Q4H PRN PRN Reason: Fever > 101 Stop: 02/08/18 23:09 Albuterol/Ipratropium (Duoneb Neb) 3 ml HHN Q6HRT [facility] Stop: 02/09/18 00:59 Last Admin: 12/13/17 12:42 Dose: 3 ml Amlodipine Besylate (Norvasc) 5 mg GT DAILY [facility] Stop: 02/09/18 08:59 Last Admin: 12/13/17 08:52 Dose: 5 mg Atorvastatin Calcium (Lipitor) 20 mg GT HS [facility] Stop: 02/09/18 20:59 Last Admin: 12/12/17 21:41 Dose: 20 mg Carvedilol (Coreg) 3.125 mg GT BID [facility] Stop: 02/09/18 08:59 Last Admin: 12/13/17 08:52 Dose: 3.125 mg Snowflake Oil/Fijian Balsam/Trypsin (Venelex) 1 appl TP DAILY [facility] Stop: 02/09/18 08:59 Last Admin: 12/13/17 08:55 Dose: 1 appl Diltiazem HCl (Cardizem) 20 mg IVP Q4HR PRN PRN Reason: HR above 110 Stop: 02/08/18 23:09 Last Admin: 12/12/17 23:15 Dose: 20 mg Fluconazole (Diflucan) 100 mg PO DAILY [facility] Stop: 02/09/18 08:59 Last Admin: 12/13/17 08:51 Dose: 100 mg Folic Acid (Folate) 1 mg GT DAILY [facility] Stop: 02/10/18 08:59 Last Admin: 12/13/17 08:52 Dose: 1 mg Glucagon (Glucagen) 1 mg IM PRN PRN PRN Reason: BS BELOW 60 & NOT TOLERATE PO Stop: 02/08/18 23:14 Piperacillin Sod/Tazobactam (Sod 3.375 gm/ Sodium Chloride) 50 mls @ 100 mls/ hr IV Q6HR [facility] Stop: 02/09/18 00:00 Last Admin: 12/13/17 12:49 Dose: 100 mls/hr Dextrose (D5w) 1,000 mls @ 50 mls/hr IV .Q20H [facility] Stop: 02/10/18 08:25 Last Admin: 12/13/17 08:53 Dose: 50 mls/hr Insulin Aspart (Novolog Insulin Sliding Scale) 0 units SUBQ Q6HR [facility] PRN Reason: Protocol Stop: 02/09/18 00:00 Last Admin: 12/13/17 12:49 Dose: 2 units Insulin Detemir (Levemir Insulin) 14 units SUBQ BID [facility] PRN Reason: Protocol Stop: 02/09/18 08:59 Last Admin: 12/13/17 08:54 Dose: 14 units Miscellaneous (Probiotic Screen) 1 ea MC PRN PRN PRN Reason: PROTOCOL Stop: 02/10/18 17:05 Morphine Sulfate (Morphine) 1 mg IVP Q4HR PRN PRN Reason: Pain (Severe) Stop: 02/10/18 23:46 Last Admin: 12/13/17 01:43 Dose: 1 mg Neomycin/Polymyxin/Bacitracin (Triple Antibiotic Pkt) 1 pkt TP DAILY [facility] Stop: 02/09/18 08:59 Last Admin: 12/13/17 08:52 Dose: 1 pkt Pantoprazole Sodium (Protonix) 40 mg IVP BID [facility] Stop: 02/09/18 08:59 Last Admin: 12/13/17 08:53 Dose: 40 m Lab - Result Diagrams 12/17/17 05:50 12/18/17 06:00 Na & BUN gradually improving Has mild upper ext edema scrotal US B/L Hydrocele On H20 flushes,increase D5W to 70 ml/hr Duplex scan no RUE DVT CXR left consolidation replace K Nutritional Asmnt/Malnutr-PDOC - Dietary Evaluation Malnutrition Findings (Please click <Entered> for more info): Nutritional Asmnt/Malnutrition Start: 12/13/17 16: 00 Text: Status: Complete Freq: Document 12/13/17 16:00 LCHENG (Rec: 12/13/17 16:22 [email or web address]) Nutritional Asmnt/Malnutrition Patient General Information Nutritional Screening High Risk Consult Diagnosis sepsis, PNA, rsepiratory failure, PENNY Pertinent Medical Hx/Surgical Hx DM, HTN, dementia, psychotic dysphagia Subjective Information Pt seen resting in bed at time of visit. TF was off at this time. Spoke with RN, RN reported pt tolerated TF well. Current Diet Order/ Nutrition Support novosource 50ml x 20hr, providing 2000kcal, 91g protein Pertinent Medications D5w, folate, glucagen, novolog , levemir, triple antibiotic pkt, protonix, piperacillin Pertinent Labs 2/5 Na 158, K 3.6, Cl 127, BUN 65, Cr 1.3, Glucose 240, POC 170-249 Nutritional Hx/Data Height 1.85 m Height (Calculated Centimeters) 185.4 Current Weight (lbs) 68.039 kg Weight (Calculated Kilograms) 68.0 Weight (Calculated Grams) 00981.9 [place] Body Weight 184 % [place] Body Weight 82 Body Mass Index (BMI) 19.8 Weight Status Approriate GI Symptoms GI Symptoms None Last BM 2/5 Difficult in: None Skin Integrity/Comment: decubitus ulceration to right buttocks, bruise to RUE, maceration to scrotum Estimated Nutritional Goals BEE in Kcals: Using Current wt Calories/Kcals/Kg 27-32 Kcals Calculated 1870-5171 Protein: Using Current wt Protein g/k.2-1.4 monitor renal labs Protein Calculated 81-95 Fluid: ml 1836-2176ml (1ml/kcal) Nutritional Problem 1. Problem Problem altered nutrition related lab values Etiology dx of PENNY, hx of DM Signs/Symptoms: Na 158, BUN 65, Glucose 240, POC 170-249 Malnutrition Alert Protein-Calorie Malnutrition N/A Is there a minimum of two criteria No selected? Query Text:Check all the applicable criteria. A minimum of two criteria are recommended for diagnosis of either severe or non-severe malnutrition. Intervention/Recommendation Comments 1. Continue with current TF regimen. It provides 2000kcal, 91g protein, meeting 100% of nutritional needs 2. Monitor TF rate, tolerance, wt weekly, skin integrity and labs 3. F/U as moderate risk in 3-5 days, 12/16-12/18 Expected Outcomes/Goals Expected Outcomes/Goals 1. Pt to meet at least 75% of nutritional needs via nutrition support with tolerance 2. Wt stability, skin to remain intact, labs to approach WNL.
--- NOTE | 2017-12-18 18:13 | General Progress Note ---
Subjective - Review of Systems Service Date: 12/18/17 Objective - Results Result Diagrams: 12/17/17 05:50 12/18/17 06:00 Recent Labs: Laboratory Last Values WBC 7.5 Th/cmm (4.8-10.8) 12/17/17 05:50 Corrected WBC (auto) 4.4 Th/cmm 12/12/17 23:59 RBC 3.10 Mil/cmm (3.80-5.80) L 12/17/17 05:50 Hgb 10.0 gm/dL (12-16) L 12/17/17 05:50 Hct 29.4 % (41.0-60) L 12/17/17 05:50 MCV 94.7 fl (80-99) 12/17/17 05:50 MCH 32.2 pg (27.0-31.0) H 12/17/17 05:50 MCHC Differential 34.0 pg (28.0-36.0) 12/17/17 05:50 RDW 15.2 % (11.5-20.0) 12/17/17 05:50 Plt Count 179 Th/cmm (150-400) D 12/17/17 05:50 MPV 10.4 fl 12/17/17 05:50 Neutrophils % 80.4 % (40.0-80.0) H 12/17/17 05:50 Band Neutrophils % 10 % (0-10) 12/12/17 23:59 Lymphocytes % 14.2 % (20.0-50.0) L 12/17/17 05:50 Monocytes % 4.3 % (2.0-10.0) 12/17/17 05:50 Eosinophils % 1.0 % (0.0-5.0) 12/17/17 05:50 Basophils % 0.1 % (0.0-2.0) 12/17/17 05:50 Neutrophils (Manual) 60 % (40-80) 12/12/17 23:59 Lymphocytes 20 % (20-50) 12/12/17 23:59 Monocytes 6 % (2-10) 12/12/17 23:59 Eosinophils 4 % (0-5) 12/12/17 23:59 Nucleated RBCs 6.0 % (0-0) H 12/12/17 23:59 Platelet Estimate SLIGHT DECREASED (NORMAL) 12/12/17 23:59 Platelet Morphology GIANT PLATELETS SEEN (NORMAL) 12/11/17 17:58 Polychromasia 1+ 12/11/17 17:58 Anisocytosis 1+ 12/11/17 17:58 RBC Morph Micro Appear ABNORMAL (NORMAL) 12/11/17 17:58 PT 11.9 SECONDS (9.5-11.5) H 12/15/17 06:20 INR 1.13 (0.5-1.4) 12/15/17 06:20 PTT (Actin FS) 26.9 SECONDS (26.0-38.0) 12/15/17 06:20 Specimen Source Arterial 12/10/17 14:05 Sample Site Left Radial 12/10/17 14:05 pH 7.51 (7.35-7.45) H 12/10/17 14:05 pCO2 36.0 mmHg (35.0-45.0) 12/10/17 14:05 pO2 102.0 mmHg (80.0-100.0) H 12/10/17 14:05 HCO3 29.2 mEq/L (20.0-26.0) H 12/10/17 14:05 Base Excess 5.5 mEq/L (-3.0-3.0) H 12/10/17 14:05 O2 Saturation 98.0 % (92.0-100.0) 12/10/17 14:05 Mario Test YES 12/10/17 14:05 Vent Rate NA 12/10/17 14:05 Inspired O2 50 12/10/17 14:05 Tidal Volume NA 12/10/17 14:05 PEEP NA 12/10/17 14:05 Pressure (ins/psv/peep) NA 12/10/17 14:05 Critical Value E.PICHARDO 12/10/17 14:05 Sodium 148 mEq/L (136-145) H 12/18/17 06:00 Potassium 3.0 mEq/L (3.5-5.1) L 12/18/17 06:00 Chloride 118 mEq/L (98-107) H 12/18/17 06:00 Carbon Dioxide 24.3 mEq/L (21.0-31.0) 12/18/17 06:00 Anion Gap 8.7 (7.0-16.0) 12/18/17 06:00 BUN 26 mg/dL (7-25) H 12/18/17 06:00 Creatinine 0.8 mg/dL (0.7-1.3) 12/18/17 06:00 Est GFR ( Amer) TNP 12/18/17 06:00 Est GFR (Non-Af Amer) TNP 12/18/17 06:00 BUN/Creatinine Ratio 32.5 12/18/17 06:00 Glucose 143 mg/dL (70-105) H 12/18/17 06:00 POC Glucose 81 MG/DL (70 - 105) 12/18/17 17:29 Hemoglobin A1c % 6.4 % (4.0-6.0) H 12/11/17 05:30 Whole Bld Lactic Acid 1.12 mmol/L (0.60-1.99) 12/11/17 07:37 Calcium 8.4 mg/dL (8.6-10.3) L 12/18/17 06:00 Phosphorus 2.7 mg/dL (2.5-5.0) 12/16/17 06:50 Magnesium 2.0 mg/dL (1.9-2.7) 12/17/17 05:50 Iron 26 ug/dL (38-169) L 12/11/17 05:30 TIBC 161 ug/dL (250-450) L 12/11/17 05:30 Iron Saturation 16 % (15-55) 12/11/17 05:30 Unsaturated IBC 135 ug/dL (111-343) 12/11/17 05:30 Ferritin 513 ng/mL (30-400) H 12/11/17 05:30 Total Bilirubin 0.5 mg/dL (0.3-1.0) 12/16/17 06:50 AST 96 U/L (13-39) H 12/16/17 06:50 ALT 95 U/L (7-52) H 12/16/17 06:50 Alkaline Phosphatase 169 U/L (34-104) H 12/16/17 06:50 Troponin I 0.44 ng/mL (0.01-0.05) H* D 12/10/17 14:06 B-Natriuretic Peptide 532.0 pg/mL (5.0-100.0) H 12/10/17 14:06 Total Protein 4.7 gm/dL (6.0-8.3) L 12/16/17 06:50 Albumin 2.4 gm/dL (4.2-5.5) L 12/16/17 06:50 Globulin 2.3 gm/dL 12/16/17 06:50 Albumin/Globulin Ratio 1.0 (1.0-1.8) 12/16/17 06:50 Vitamin B12 1620 pg/mL (232-1245) H 12/11/17 05:30 Folic Acid >20.0 ng/mL (>3.0) 12/11/17 05:30 Urine Source [place] 12/15/17 16:30 Urine Color YELLOW 12/15/17 16:30 Urine Clarity CLEAR (CLEAR) 12/15/17 16:30 Urine pH 6.0 (4.6 - 8.0) 12/15/17 16:30 Ur Specific Pearson 1.015 (1.005-1.030) 12/15/17 16:30 Urine Protein 30 mg/dL (NEGATIVE) H 12/15/17 16:30 Urine Glucose (UA) NEGATIVE mg/dL (NEGATIVE) 12/15/17 16:30 Urine Ketones NEGATIVE mg/dL (NEGATIVE) 12/15/17 16:30 Urine Blood LARGE (NEGATIVE) H 12/15/17 16:30 Urine Nitrate NEGATIVE (NEGATIVE) 12/15/17 16:30 Urine Bilirubin NEGATIVE (NEGATIVE) 12/15/17 16:30 Urine Urobilinogen 0.2 E.U./dL (0.2 - 1.0) 12/15/17 16:30 Ur Leukocyte Esterase NEGATIVE (NEGATIVE) 12/15/17 16:30 Urine RBC 2-5 /hpf (0-5) H 12/15/17 16:30 Urine WBC 2-5 /hpf (0-5) 12/15/17 16:30 Ur Epithelial Cells RARE /lpf (FEW) 12/15/17 16:30 Urine Bacteria OCCASIONAL /hpf (NONE SEEN) 12/15/17 16:30 Stool Occult Blood POSITIVE (NEGATIVE) H 12/13/17 13:20 Helicobacter pylori Ab NEGATIVE (NEGATIVE) 12/16/17 14:40 Blood Type A POSITIVE 12/15/17 06:20 Antibody Screen NEGATIVE 12/15/17 06:20 Crossmatch See Detail 12/15/17 06:20 - Physical Exam Vitals and I&O: Vital Signs Temp 98.4 F 12/18/17 16:00 Pulse 105 12/18/17 16:23 Resp 20 12/18/17 17:52 BP 128/77 12/18/17 16:23 Pulse Ox 98 12/18/17 16:00 Intake & Output 12/17/17 12/18/17 12/18/17 18:59 06:59 18:59 Intake Total 100 100 50 Output Total 100 Balance 100 0 50 Weight (lbs) 97.931 kg Intake: Intake, IV Amount 100 100 50 Piperacillin Sodium/ 100 100 50 Tazobact 3.375 gm In Sodium Chloride 0.9% 50 ml @ 100 mls/hr IV Q6HR [facility] Rx#:[id number] Output: Urine 100 Active Medications: Current Medications Acetaminophen (Tylenol 650mg Supp) 650 mg RC Q4H PRN PRN Reason: Fever > 101 Stop: 02/08/18 23:09 Albuterol/Ipratropium (Duoneb Neb) 3 ml HHN Q6HRT [facility] Stop: 02/09/18 00:59 Last Admin: 12/18/17 13:44 Dose: 3 ml Amlodipine Besylate (Norvasc) 5 mg GT DAILY [facility] Stop: 02/09/18 08:59 Last Admin: 12/18/17 09:39 Dose: 5 mg Atorvastatin Calcium (Lipitor) 20 mg GT HS [facility] Stop: 02/09/18 20:59 Last Admin: 12/17/17 20:58 Dose: 20 mg Carvedilol (Coreg) 3.125 mg GT BID [facility] Stop: 02/09/18 08:59 Last Admin: 12/18/17 16:23 Dose: 3.125 mg [place] Oil/Thai Balsam/Trypsin (Venelex) 1 appl TP DAILY [facility] Stop: 02/09/18 08:59 Last Admin: 12/18/17 13:15 Dose: 1 appl Dextrose (D50w) 50 ml IVP PRN PRN PRN Reason: Blood Glucose less than 70 Stop: 02/13/18 15:17 Dextrose (Glutose 40%) 18.75 gm PO PRN PRN PRN Reason: Blood Glucose less than 70 Stop: 02/13/18 15:17 Diltiazem HCl (Cardizem) 20 mg IVP Q4HR PRN PRN Reason: HR above 110 Stop: 02/08/18 23:09 Last Admin: 12/12/17 23:15 Dose: 20 mg Fluconazole (Diflucan) 100 mg PO DAILY [facility] Stop: 02/09/18 08:59 Last Admin: 12/18/17 09:40 Dose: 100 mg Folic Acid (Folate) 1 mg GT DAILY [facility] Stop: 02/10/18 08:59 Last Admin: 12/18/17 09:40 Dose: 1 mg Glucagon (Glucagen) 1 mg IM PRN PRN PRN Reason: Blood Glucose less than 70 Stop: 02/13/18 15:17 Piperacillin Sod/Tazobactam (Sod 3.375 gm/ Sodium Chloride) 50 mls @ 100 mls/ hr IV Q6HR [facility] Stop: 02/09/18 00:00 Last Admin: 12/18/17 17:16 Dose: 100 mls/hr Dextrose (D5w) 1,000 mls @ 75 mls/hr IV .[id number] [facility] Stop: 02/13/18 14:34 Last Admin: 12/17/17 17:28 Dose: 75 mls/hr Insulin Aspart (Novolog Insulin Sliding Scale) 0 units SUBQ Q6HR R[facility] PRN Reason: Protocol Stop: 02/09/18 00:00 Last Admin: 12/18/17 17:31 Dose: Not Given Insulin Detemir (Levemir Insulin) 14 units SUBQ BID [facility]AN PRN Reason: Protocol Stop: 02/09/18 08:59 Last Admin: 12/18/17 17:31 Dose: Not Given Miscellaneous (Probiotic Screen) 1 ea MC PRN PRN PRN Reason: PROTOCOL Stop: 02/10/18 17:05 Miscellaneous (Vte Chemical Prophylaxis Screen/ Admission) 1 ea MC PRN PRN PRN Reason: PROTOCOL Stop: 02/13/18 10:23 Morphine Sulfate (Morphine) 1 mg IVP Q4HR PRN PRN Reason: Pain (Severe) Stop: 02/10/18 23:46 Last Admin: 12/14/17 18:10 Dose: 1 mg Neomycin/Polymyxin/Bacitracin (Triple Antibiotic Pkt) 1 pkt TP DAILY [facility] Stop: 02/09/18 08:59 Last Admin: 12/18/17 09:39 Dose: 1 pkt Nystatin (Nystop) 0 units TP BID [facility] Stop: 02/13/18 20:29 Last Admin: 12/18/17 16:24 Dose: 100,000 units Pantoprazole Sodium (Protonix) 40 mg IVP BID [facility] Stop: 02/09/18 08:59 Last Admin: 12/18/17 16:33 Dose: 40 mg Potassium Chloride (Klor-Con) 20 meq PO DAILY [facility] Stop: 02/15/18 13:59 Last Admin: 12/18/17 11:11 Dose: Not Given General: No acute distress HEENT: PERRLA, EOMI, Mucous membr. moist/pink Neck: Supple, +2 carotid pulse wo bruit Cardiovascular: Regular rate, Normal S1, Normal S2 Lungs: Other (decreased BS) Abdomen: Bowel sounds, Soft Extremities: Other (upper ext), no Edema Neurological: Sensation intact Skin: no Rash Psych/Mental Status: Mood NL - Procedures Procedures: Procedures Procedure Code Date BLOOD TRANSFUSION SERVICE 92845 12/10/17 EXCISION OF STOMACH, ENDO, DIAGN [id number] 11/15/17 INSERT TUNNELED CV CATH [id number] 11/15/17 INSERTION OF FEEDING DEVICE INTO STOMACH, ENDO [id number] 11/15/17 INSERTION OF INFUSION DEV INTO R SUBCLAV VEIN, PERC APPROACH [id number] 11/15/17 PERFORMANCE OF URINARY FILTRATION, <6 HRS/DAY [id number] 11/15/17 REMOVAL OF INFUSION DEVICE FROM UPPER VEIN, PERC APPROACH [id number] 11/15/17 TRANSFUSE NONAUT RED BLOOD CELLS IN PERIPH VEIN, PERC [id number] 12/10/17 ULTRASONOGRAPHY OF RIGHT SUBCLAVIAN VEIN, GUIDANCE [id number] 11/15/17 Assessment/Plan - Assessment Assessment: * Anemia gauthier is positive for occult blood; otherwise no evidence of deficiency * Thrombocytopenia better hgb unstable; transfuse prn and follow GI recs Continue gastric tube feeding Nutritional Asmnt/Malnutr-PDOC - Dietary Evaluation Malnutrition Findings (Please click <Entered> for more info): Nutritional Asmnt/Malnutrition Start: 12/13/17 16: 00 Text: Status: Complete Freq: Document 12/13/17 16:00 [facility] (Rec: 12/13/17 16:22 [email or web address]) Nutritional Asmnt/Malnutrition Patient General Information Nutritional Screening High Risk Consult Diagnosis sepsis, PNA, rsepiratory failure, PENNY Pertinent Medical Hx/Surgical Hx DM, HTN, dementia, psychotic dysphagia Subjective Information Pt seen resting in bed at time of visit. TF was off at this time. Spoke with RN, RN reported pt tolerated TF well. Current Diet Order/ Nutrition Support novosource 50ml x 20hr, providing 2000kcal, 91g protein Pertinent Medications D5w, folate, glucagen, novolog , levemir, triple antibiotic pkt, protonix, piperacillin Pertinent Labs 2/5 Na 158, K 3.6, Cl 127, BUN 65, Cr 1.3, Glucose 240, POC 170-249 Nutritional Hx/Data Height 1.85 m Height (Calculated Centimeters) 185.4 Current Weight (lbs) 68.039 kg Weight (Calculated Kilograms) 68.0 Weight (Calculated Grams) 85696.9 [place] Body Weight 184 % [place] Body Weight 82 Body Mass Index (BMI) 19.8 Weight Status Approriate GI Symptoms GI Symptoms None Last BM 2/5 Difficult in: None Skin Integrity/Comment: decubitus ulceration to right buttocks, bruise to RUE, maceration to scrotum Estimated Nutritional Goals BEE in Kcals: Using Current wt Calories/Kcals/Kg 27-32 Kcals Calculated 4669-9935 Protein: Using Current wt Protein g/k.2-1.4 monitor renal labs Protein Calculated 81-95 Fluid: ml 1836-2176ml (1ml/kcal) Nutritional Problem 1. Problem Problem altered nutrition related lab values Etiology dx of PENNY, hx of DM Signs/Symptoms: Na 158, BUN 65, Glucose 240, POC 170-249 Malnutrition Alert Protein-Calorie Malnutrition N/A Is there a minimum of two criteria No selected? Query Text:Check all the applicable criteria. A minimum of two criteria are recommended for diagnosis of either severe or non-severe malnutrition. Intervention/Recommendation Comments 1. Continue with current TF regimen. It provides 2000kcal, 91g protein, meeting 100% of nutritional needs 2. Monitor TF rate, tolerance, wt weekly, skin integrity and labs 3. F/U as moderate risk in 3-5 days, 12/16-12/18 Expected Outcomes/Goals Expected Outcomes/Goals 1. Pt to meet at least 75% of nutritional needs via nutrition support with tolerance 2. Wt stability, skin to remain intact, labs to approach WNL.
--- NOTE | 2017-12-18 19:56 | Internal Medicine Prog Note ---
Internal Medicine Subjective - Subjective Service Date: 12/18/17 Patient seen and examined:: with staff (HE IS TOLERATING HIS GT FEEDING) Patient is:: non-verbal, in bed, confused Per staff patient has:: no adverse event Internal Medicine Objective - Results Result Diagrams: 12/17/17 05:50 12/18/17 06:00 Recent Labs: Laboratory Last Values WBC 7.5 Th/cmm (4.8-10.8) 12/17/17 05:50 Corrected WBC (auto) 4.4 Th/cmm 12/12/17 23:59 RBC 3.10 Mil/cmm (3.80-5.80) L 12/17/17 05:50 Hgb 10.0 gm/dL (12-16) L 12/17/17 05:50 Hct 29.4 % (41.0-60) L 12/17/17 05:50 MCV 94.7 fl (80-99) 12/17/17 05:50 MCH 32.2 pg (27.0-31.0) H 12/17/17 05:50 MCHC Differential 34.0 pg (28.0-36.0) 12/17/17 05:50 RDW 15.2 % (11.5-20.0) 12/17/17 05:50 Plt Count 179 Th/cmm (150-400) D 12/17/17 05:50 MPV 10.4 fl 12/17/17 05:50 Neutrophils % 80.4 % (40.0-80.0) H 12/17/17 05:50 Band Neutrophils % 10 % (0-10) 12/12/17 23:59 Lymphocytes % 14.2 % (20.0-50.0) L 12/17/17 05:50 Monocytes % 4.3 % (2.0-10.0) 12/17/17 05:50 Eosinophils % 1.0 % (0.0-5.0) 12/17/17 05:50 Basophils % 0.1 % (0.0-2.0) 12/17/17 05:50 Neutrophils (Manual) 60 % (40-80) 12/12/17 23:59 Lymphocytes 20 % (20-50) 12/12/17 23:59 Monocytes 6 % (2-10) 02/04/18 23:59 Eosinophils 4 % (0-5) 12/12/17 23:59 Nucleated RBCs 6.0 % (0-0) H 12/12/17 23:59 Platelet Estimate SLIGHT DECREASED (NORMAL) 12/12/17 23:59 Platelet Morphology GIANT PLATELETS SEEN (NORMAL) 12/11/17 17:58 Polychromasia 1+ 12/11/17 17:58 Anisocytosis 1+ 12/11/17 17:58 RBC Morph Micro Appear ABNORMAL (NORMAL) 12/11/17 17:58 PT 11.9 SECONDS (9.5-11.5) H 12/15/17 06:20 INR 1.13 (0.5-1.4) 12/15/17 06:20 PTT (Actin FS) 26.9 SECONDS (26.0-38.0) 12/15/17 06:20 Specimen Source Arterial 12/10/17 14:05 Sample Site Left Radial 12/10/17 14:05 pH 7.51 (7.35-7.45) H 12/10/17 14:05 pCO2 36.0 mmHg (35.0-45.0) 12/10/17 14:05 pO2 102.0 mmHg (80.0-100.0) H 12/10/17 14:05 HCO3 29.2 mEq/L (20.0-26.0) H 12/10/17 14:05 Base Excess 5.5 mEq/L (-3.0-3.0) H 12/10/17 14:05 O2 Saturation 98.0 % (92.0-100.0) 12/10/17 14:05 Mario Test YES 12/10/17 14:05 Vent Rate NA 12/10/17 14:05 Inspired O2 50 12/10/17 14:05 Tidal Volume NA 12/10/17 14:05 PEEP NA 12/10/17 14:05 Pressure (ins/psv/peep) NA 12/10/17 14:05 Critical Value E.PICHARDO 12/10/17 14:05 Sodium 148 mEq/L (136-145) H 12/18/17 06:00 Potassium 3.0 mEq/L (3.5-5.1) L 12/18/17 06:00 Chloride 118 mEq/L (98-107) H 12/18/17 06:00 Carbon Dioxide 24.3 mEq/L (21.0-31.0) 12/18/17 06:00 Anion Gap 8.7 (7.0-16.0) 12/18/17 06:00 BUN 26 mg/dL (7-25) H 12/18/17 06:00 Creatinine 0.8 mg/dL (0.7-1.3) 12/18/17 06:00 Est GFR ( Amer) TNP 12/18/17 06:00 Est GFR (Non-Af Amer) TNP 12/18/17 06:00 BUN/Creatinine Ratio 32.5 12/18/17 06:00 Glucose 143 mg/dL (70-105) H 12/18/17 06:00 POC Glucose 81 MG/DL (70 - 105) 12/18/17 17:29 Hemoglobin A1c % 6.4 % (4.0-6.0) H 12/11/17 05:30 Whole Bld Lactic Acid 1.12 mmol/L (0.60-1.99) 12/11/17 07:37 Calcium 8.4 mg/dL (8.6-10.3) L 12/18/17 06:00 Phosphorus 2.7 mg/dL (2.5-5.0) 12/16/17 06:50 Magnesium 2.0 mg/dL (1.9-2.7) 12/17/17 05:50 Iron 26 ug/dL (38-169) L 12/11/17 05:30 TIBC 161 ug/dL (250-450) L 12/11/17 05:30 Iron Saturation 16 % (15-55) 12/11/17 05:30 Unsaturated IBC 135 ug/dL (111-343) 12/11/17 05:30 Ferritin 513 ng/mL (30-400) H 12/11/17 05:30 Total Bilirubin 0.5 mg/dL (0.3-1.0) 12/16/17 06:50 AST 96 U/L (13-39) H 12/16/17 06:50 ALT 95 U/L (7-52) H 12/16/17 06:50 Alkaline Phosphatase 169 U/L (34-104) H 12/16/17 06:50 Troponin I 0.44 ng/mL (0.01-0.05) H* D 12/10/17 14:06 B-Natriuretic Peptide 532.0 pg/mL (5.0-100.0) H 12/10/17 14:06 Total Protein 4.7 gm/dL (6.0-8.3) L 12/16/17 06:50 Albumin 2.4 gm/dL (4.2-5.5) L 12/16/17 06:50 Globulin 2.3 gm/dL 12/16/17 06:50 Albumin/Globulin Ratio 1.0 (1.0-1.8) 12/16/17 06:50 Vitamin B12 1620 pg/mL (232-1245) H 12/11/17 05:30 Folic Acid >20.0 ng/mL (>3.0) 12/11/17 05:30 Urine Source [place] 12/15/17 16:30 Urine Color YELLOW 12/15/17 16:30 Urine Clarity CLEAR (CLEAR) 12/15/17 16:30 Urine pH 6.0 (4.6 - 8.0) 12/15/17 16:30 Ur Specific [place] 1.015 (1.005-1.030) 12/15/17 16:30 Urine Protein 30 mg/dL (NEGATIVE) H 12/15/17 16:30 Urine Glucose (UA) NEGATIVE mg/dL (NEGATIVE) 12/15/17 16:30 Urine Ketones NEGATIVE mg/dL (NEGATIVE) 12/15/17 16:30 Urine Blood LARGE (NEGATIVE) H 12/15/17 16:30 Urine Nitrate NEGATIVE (NEGATIVE) 12/15/17 16:30 Urine Bilirubin NEGATIVE (NEGATIVE) 12/15/17 16:30 Urine Urobilinogen 0.2 E.U./dL (0.2 - 1.0) 12/15/17 16:30 Ur Leukocyte Esterase NEGATIVE (NEGATIVE) 12/15/17 16:30 Urine RBC 2-5 /hpf (0-5) H 12/15/17 16:30 Urine WBC 2-5 /hpf (0-5) 12/15/17 16:30 Ur Epithelial Cells RARE /lpf (FEW) 12/15/17 16:30 Urine Bacteria OCCASIONAL /hpf (NONE SEEN) 12/15/17 16:30 Stool Occult Blood POSITIVE (NEGATIVE) H 12/13/17 13:20 Helicobacter pylori Ab NEGATIVE (NEGATIVE) 12/16/17 14:40 Blood Type A POSITIVE 12/15/17 06:20 Antibody Screen NEGATIVE 12/15/17 06:20 Crossmatch See Detail 12/15/17 06:20 - Physical Exam Vitals and I&O: Vital Signs Temp 98.4 F 12/18/17 16:00 Pulse 80 12/18/17 19:09 Resp 20 12/18/17 19:09 BP 128/77 12/18/17 16:23 Pulse Ox 100 12/18/17 19:09 Intake & Output 12/18/17 12/18/17 12/19/17 06:59 18:59 06:59 Intake Total 100 450 Output Total 100 700 Balance 0 -250 Weight (lbs) 97.931 kg 97.522 kg Intake: Intake, IV Amount 100 50 Piperacillin Sodium/ 100 50 Tazobact 3.375 gm In Sodium Chloride 0.9% 50 ml @ 100 mls/hr IV Q6HR [facility] Rx#:[id number] Tube Feeding 400 Output: Urine 100 700 Other: # Bowel Movements 2 Active Medications: Current Medications Acetaminophen (Tylenol 650mg Supp) 650 mg RC Q4H PRN PRN Reason: Fever > 101 Stop: 02/08/18 23:09 Albuterol/Ipratropium (Duoneb Neb) 3 ml HHN Q6HRT [facility] Stop: 02/09/18 00:59 Last Admin: 12/18/17 19:07 Dose: 3 ml Amlodipine Besylate (Norvasc) 5 mg GT DAILY [facility] Stop: 02/09/18 08:59 Last Admin: 12/18/17 09:39 Dose: 5 mg Atorvastatin Calcium (Lipitor) 20 mg GT HS [facility] Stop: 02/09/18 20:59 Last Admin: 12/17/17 20:58 Dose: 20 mg Carvedilol (Coreg) 3.125 mg GT BID [facility] Stop: 02/09/18 08:59 Last Admin: 12/18/17 16:23 Dose: 3.125 mg [place] Oil/[place]occan Balsam/Trypsin (Venelex) 1 appl TP DAILY [facility] Stop: 02/09/18 08:59 Last Admin: 12/18/17 13:15 Dose: 1 appl Dextrose (D50w) 50 ml IVP PRN PRN PRN Reason: Blood Glucose less than 70 Stop: 02/13/18 15:17 Dextrose (Glutose 40%) 18.75 gm PO PRN PRN PRN Reason: Blood Glucose less than 70 Stop: 02/13/18 15:17 Diltiazem HCl (Cardizem) 20 mg IVP Q4HR PRN PRN Reason: HR above 110 Stop: 02/08/18 23:09 Last Admin: 12/12/17 23:15 Dose: 20 mg Fluconazole (Diflucan) 100 mg PO DAILY [facility] Stop: 02/09/18 08:59 Last Admin: 12/18/17 09:40 Dose: 100 mg Folic Acid (Folate) 1 mg GT DAILY [facility] Stop: 02/10/18 08:59 Last Admin: 12/18/17 09:40 Dose: 1 mg Glucagon (Glucagen) 1 mg IM PRN PRN PRN Reason: Blood Glucose less than 70 Stop: 02/13/18 15:17 Piperacillin Sod/Tazobactam (Sod 3.375 gm/ Sodium Chloride) 50 mls @ 100 mls/ hr IV Q6HR [facility] Stop: 02/09/18 00:00 Last Admin: 12/18/17 17:16 Dose: 100 mls/hr Dextrose (D5w) 1,000 mls @ 75 mls/hr IV .[id number] [facility] Stop: 02/13/18 14:34 Last Admin: 12/17/17 17:28 Dose: 75 mls/hr Insulin Aspart (Novolog Insulin Sliding Scale) 0 units SUBQ Q6HR [facility] PRN Reason: Protocol Stop: 02/09/18 00:00 Last Admin: 12/18/17 17:31 Dose: Not Given Insulin Detemir (Levemir Insulin) 14 units SUBQ BID [facility] PRN Reason: Protocol Stop: 02/09/18 08:59 Last Admin: 12/18/17 17:31 Dose: Not Given Miscellaneous (Probiotic Screen) 1 ea MC PRN PRN PRN Reason: PROTOCOL Stop: 02/10/18 17:05 Miscellaneous (Vte Chemical Prophylaxis Screen/ Admission) 1 ea MC PRN PRN PRN Reason: PROTOCOL Stop: 02/13/18 10:23 Morphine Sulfate (Morphine) 1 mg IVP Q4HR PRN PRN Reason: Pain (Severe) Stop: 02/10/18 23:46 Last Admin: 02/06/18 18:10 Dose: 1 mg Neomycin/Polymyxin/Bacitracin (Triple Antibiotic Pkt) 1 pkt TP DAILY RYAN Stop: 02/09/18 08:59 Last Admin: 12/18/17 09:39 Dose: 1 pkt Nystatin (Nystop) 0 units TP BID RYAN Stop: 02/13/18 20:29 Last Admin: 12/18/17 16:24 Dose: 100,000 units Pantoprazole Sodium (Protonix) 40 mg IVP BID RYAN Stop: 02/09/18 08:59 Last Admin: 12/18/17 16:33 Dose: 40 mg Potassium Chloride (Klor-Con) 20 meq PO DAILY RYAN Stop: 02/15/18 13:59 Last Admin: 12/18/17 11:11 Dose: Not Given General: weak, demented HEENT: NC/AT, PERRLA, EOMI, anicteric sclerae, throat clear Neck: Supple, No JVD, No thyromegaly, +2 carotid pulse wo bruit, No LAD, + JVD Lungs: CTAB Cardiovascular: RRR, Normal S1, Normal S2, without murmur Abdomen: non-tender, non-distended Extremities: clear Neurological: no change - Procedures Procedures: Procedures Procedure Code Date BLOOD TRANSFUSION SERVICE 23964 12/10/17 EXCISION OF STOMACH, ENDO, DIAGN [id number] 11/15/17 INSERT TUNNELED CV CATH [id number] 11/15/17 INSERTION OF FEEDING DEVICE INTO STOMACH, ENDO [id number] 11/15/17 INSERTION OF INFUSION DEV INTO R SUBCLAV VEIN, PERC APPROACH [id number] 11/15/17 PERFORMANCE OF URINARY FILTRATION, <6 HRS/DAY [id number] 11/15/17 REMOVAL OF INFUSION DEVICE FROM UPPER VEIN, PERC APPROACH [id number] 11/15/17 TRANSFUSE NONAUT RED BLOOD CELLS IN PERIPH VEIN, PERC [id number] 12/10/17 ULTRASONOGRAPHY OF RIGHT SUBCLAVIAN VEIN, GUIDANCE [id number] 11/15/17 Internal Medicine Assmt/Plan - Assessment Assessment: 1.ASPIRATION PNEUMONIA. 2.SEPSIS. 3.ANEMIA. 4.DEHYDRATION 5.HEMATUREA - Plan Plan: CONTINUE ON CURRENT MEDICATION AND DIET. Nutritional Asmnt/Malnutr-PDOC - Dietary Evaluation Malnutrition Findings (Please click <Entered> for more info): Nutritional Asmnt/Malnutrition Start: 12/13/17 16: 00 Text: Status: Complete Freq: Document 12/13/17 16:00 LISA (Rec: 12/13/17 16:22 LCBRIEN [email or web address]) Nutritional Asmnt/Malnutrition Patient General Information Nutritional Screening High Risk Consult Diagnosis sepsis, PNA, rsepiratory failure, PENNY Pertinent Medical Hx/Surgical Hx DM, HTN, dementia, psychotic dysphagia Subjective Information Pt seen resting in bed at time of visit. TF was off at this time. Spoke with RN, RN reported pt tolerated TF well. Current Diet Order/ Nutrition Support novosource 50ml x 20hr, providing 2000kcal, 91g protein Pertinent Medications D5w, folate, glucagen, novolog , levemir, triple antibiotic pkt, protonix, piperacillin Pertinent Labs 2/5 Na 158, K 3.6, Cl 127, BUN 65, Cr 1.3, Glucose 240, POC 170-249 Nutritional Hx/Data Height 1.85 m Height (Calculated Centimeters) 185.4 Current Weight (lbs) 68.039 kg Weight (Calculated Kilograms) 68.0 Weight (Calculated Grams) 01181.9 [place] Body Weight 184 % [place] Body Weight 82 Body Mass Index (BMI) 19.8 Weight Status Approriate GI Symptoms GI Symptoms None Last BM 2/5 Difficult in: None Skin Integrity/Comment: decubitus ulceration to right buttocks, bruise to RUE, maceration to scrotum Estimated Nutritional Goals BEE in Kcals: Using Current wt Calories/Kcals/Kg 27-32 Kcals Calculated 8407-7246 Protein: Using Current wt Protein g/k.2-1.4 monitor renal labs Protein Calculated 81-95 Fluid: ml 1836-2176ml (1ml/kcal) Nutritional Problem 1. Problem Problem altered nutrition related lab values Etiology dx of PENNY, hx of DM Signs/Symptoms: Na 158, BUN 65, Glucose 240, POC 170-249 Malnutrition Alert Protein-Calorie Malnutrition N/A Is there a minimum of two criteria No selected? Query Text:Check all the applicable criteria. A minimum of two criteria are recommended for diagnosis of either severe or non-severe malnutrition. Intervention/Recommendation Comments 1. Continue with current TF regimen. It provides 2000kcal, 91g protein, meeting 100% of nutritional needs 2. Monitor TF rate, tolerance, wt weekly, skin integrity and labs 3. F/U as moderate risk in 3-5 days, 12/16-12/18 Expected Outcomes/Goals Expected Outcomes/Goals 1. Pt to meet at least 75% of nutritional needs via nutrition support with tolerance 2. Wt stability, skin to remain intact, labs to approach WNL.
[2017-12-18] MEDS: Atorvastatin Calcium 10 MG TAB GT SCH (20:54)
[2017-12-19] MEDS: Albuterol/Ipratropium Neb 3 ML AERS HHN SCH ×4 (00:46→19:10)
[2017-12-19] MEDS: INSULIN ASPART SLIDING SCALE 100 UNITS/ML UNIT SUBQ SCH ×4 (05:35→17:28)
[2017-12-19 06:42] LABS: % BASOPHILS 0.1 % (0.0-2.0); % EOSINOPHILS 0.7 % (0.0-5.0); % LYMPHOCYTES 14.1 % (20.0-50.0); % MONOCYTES 5.2 % (2.0-10.0); % NEUTROPHILS 79.9 % (40.0-80.0); EOSINOPHILE ABSOLUTE 0.1 Th/cmm (0.1-0.4); HEMATOCRIT 24.5 % (41.0-60); HEMOGLOBIN 8.4 gm/dL (12-16); LYMPHOCYTE ABSOLUTE 1.2 Th/cmm (1.5-3.0); MEAN CELL VOLUME 96.6 fl (80-99); MEAN CORPUSCULAR HGB CONC 34.1 pg (28.0-36.0); MEAN PLATELET VOLUME 9.9 fl; MONOCYTE ABSOLUTE 0.4 Th/cmm (0.3-1.0); NEUTROPHILE ABSOLUTE 6.7 Th/cmm (1.8-8.0); RED BLOOD COUNT 2.54 Mil/cmm (3.80-5.80); RED CELL DISTRIBUTION WIDTH 15.2 % (11.5-20.0); WHITE BLOOD COUNT 8.4 Th/cmm (4.8-10.8)
[2017-12-19 06:46] LABS: PLATELET COUNT 227 Th/cmm (150-400)
[2017-12-19 07:06] LABS: ALB/GLOB RATIO 0.8 (1.0-1.8); ALBUMIN 2.1 gm/dL (4.2-5.5); ALKALINE PHOSPHATASE 151 U/L (34-104); ANION GAP 6.8 (7.0-16.0); BILIRUBIN,TOTAL 0.3 mg/dL (0.3-1.0); BUN - UREA NITROGEN 24 mg/dL (7-25); CALCIUM SERUM 8.4 mg/dL (8.6-10.3); CARBON DIOXIDE 25.7 mEq/L (21.0-31.0); CHLORIDE 119 mEq/L (98-107); CREATININE - SERUM 0.8 mg/dL (0.7-1.3); GLUCOSE 178 mg/dL (70-105); POTASSIUM SERUM 3.5 mEq/L (3.5-5.1); SGOT 74 U/L (13-39); SGPT/ALT 89 U/L (7-52); SODIUM SERUM 148 mEq/L (136-145); TOTAL PROTEIN,SERUM 4.7 gm/dL (6.0-8.3)
[2017-12-19] MEDS: NYSTATIN 100000 UNITS/GM POWD TP SCH ×2 (09:29→16:33)
[2017-12-19] MEDS: Potassium Chloride 20 mEq ER Tab PO SCH (09:30)
[2017-12-19] MEDS: Venelex 60gm Tube TP SCH (09:31)
[2017-12-19] MEDS: Triple Antibiotic 0.94 gm Pkt TP SCH (09:31)
[2017-12-19] MEDS: Insulin Detemir 100 units/mL 10mL Vial SUBQ SCH ×2 (09:32→17:28)
--- NOTE | 2017-12-19 15:57 | General Progress Note ---
Subjective - Review of Systems Service Date: 12/19/17 Subjective: sleeping, comfortable Objective - Results Result Diagrams: 12/19/17 05:53 12/19/17 05:53 Recent Labs: Laboratory Last Values WBC 8.4 Th/cmm (4.8-10.8) 12/19/17 05:53 Corrected WBC (auto) 4.4 Th/cmm 12/12/17 23:59 RBC 2.54 Mil/cmm (3.80-5.80) L 12/19/17 05:53 Hgb 8.4 gm/dL (12-16) L 12/19/17 05:53 Hct 24.5 % (41.0-60) L 12/19/17 05:53 MCV 96.6 fl (80-99) 12/19/17 05:53 MCH 33.0 pg (27.0-31.0) H 12/19/17 05:53 MCHC Differential 34.1 pg (28.0-36.0) 12/19/17 05:53 RDW 15.2 % (11.5-20.0) 12/19/17 05:53 Plt Count 227 Th/cmm (150-400) D 12/19/17 05:53 MPV 9.9 fl 12/19/17 05:53 Neutrophils % 79.9 % (40.0-80.0) 12/19/17 05:53 Band Neutrophils % 10 % (0-10) 12/12/17 23:59 Lymphocytes % 14.1 % (20.0-50.0) L 12/19/17 05:53 Monocytes % 5.2 % (2.0-10.0) 12/19/17 05:53 Eosinophils % 0.7 % (0.0-5.0) 12/19/17 05:53 Basophils % 0.1 % (0.0-2.0) 12/19/17 05:53 Neutrophils (Manual) 60 % (40-80) 12/12/17 23:59 Lymphocytes 20 % (20-50) 12/12/17 23:59 Monocytes 6 % (2-10) 12/12/17 23:59 Eosinophils 4 % (0-5) 12/12/17 23:59 Nucleated RBCs 6.0 % (0-0) H 02/04/18 23:59 Platelet Estimate SLIGHT DECREASED (NORMAL) 12/12/17 23:59 Platelet Morphology GIANT PLATELETS SEEN (NORMAL) 12/11/17 17:58 Polychromasia 1+ 12/11/17 17:58 Anisocytosis 1+ 12/11/17 17:58 RBC Morph Micro Appear ABNORMAL (NORMAL) 12/11/17 17:58 PT 11.9 SECONDS (9.5-11.5) H 12/15/17 06:20 INR 1.13 (0.5-1.4) 12/15/17 06:20 PTT (Actin FS) 26.9 SECONDS (26.0-38.0) 12/15/17 06:20 Specimen Source Arterial 12/10/17 14:05 Sample Site Left Radial 12/10/17 14:05 pH 7.51 (7.35-7.45) H 12/10/17 14:05 pCO2 36.0 mmHg (35.0-45.0) 12/10/17 14:05 pO2 102.0 mmHg (80.0-100.0) H 12/10/17 14:05 HCO3 29.2 mEq/L (20.0-26.0) H 12/10/17 14:05 Base Excess 5.5 mEq/L (-3.0-3.0) H 12/10/17 14:05 O2 Saturation 98.0 % (92.0-100.0) 12/10/17 14:05 Mario Test YES 12/10/17 14:05 Vent Rate NA 12/10/17 14:05 Inspired O2 50 12/10/17 14:05 Tidal Volume NA 12/10/17 14:05 PEEP NA 12/10/17 14:05 Pressure (ins/psv/peep) NA 12/10/17 14:05 Critical Value E.PICHARDO 12/10/17 14:05 Sodium 148 mEq/L (136-145) H 12/19/17 05:53 Potassium 3.5 mEq/L (3.5-5.1) 12/19/17 05:53 Chloride 119 mEq/L (98-107) H 12/19/17 05:53 Carbon Dioxide 25.7 mEq/L (21.0-31.0) 12/19/17 05:53 Anion Gap 6.8 (7.0-16.0) L 12/19/17 05:53 BUN 24 mg/dL (7-25) 12/19/17 05:53 Creatinine 0.8 mg/dL (0.7-1.3) 12/19/17 05:53 Est GFR ( Amer) TNP 12/19/17 05:53 Est GFR (Non-Af Amer) TNP 12/19/17 05:53 BUN/Creatinine Ratio 30.0 12/19/17 05:53 Glucose 178 mg/dL (70-105) H 12/19/17 05:53 POC Glucose 166 MG/DL (70 - 105) H 12/19/17 11:48 Hemoglobin A1c % 6.4 % (4.0-6.0) H 12/11/17 05:30 Whole Bld Lactic Acid 1.12 mmol/L (0.60-1.99) 12/11/17 07:37 Calcium 8.4 mg/dL (8.6-10.3) L 12/19/17 05:53 Phosphorus 2.7 mg/dL (2.5-5.0) 12/16/17 06:50 Magnesium 2.0 mg/dL (1.9-2.7) 12/17/17 05:50 Iron 26 ug/dL (38-169) L 12/11/17 05:30 TIBC 161 ug/dL (250-450) L 12/11/17 05:30 Iron Saturation 16 % (15-55) 12/11/17 05:30 Unsaturated IBC 135 ug/dL (111-343) 12/11/17 05:30 Ferritin 513 ng/mL (30-400) H 12/11/17 05:30 Total Bilirubin 0.3 mg/dL (0.3-1.0) 12/19/17 05:53 AST 74 U/L (13-39) H 12/19/17 05:53 ALT 89 U/L (7-52) H 12/19/17 05:53 Alkaline Phosphatase 151 U/L (34-104) H 12/19/17 05:53 Troponin I 0.44 ng/mL (0.01-0.05) H* D 12/10/17 14:06 B-Natriuretic Peptide 532.0 pg/mL (5.0-100.0) H 12/10/17 14:06 Total Protein 4.7 gm/dL (6.0-8.3) L 12/19/17 05:53 Albumin 2.1 gm/dL (4.2-5.5) L 12/19/17 05:53 Globulin 2.6 gm/dL 12/19/17 05:53 Albumin/Globulin Ratio 0.8 (1.0-1.8) L 12/19/17 05:53 Vitamin B12 1620 pg/mL (232-1245) H 12/11/17 05:30 Folic Acid >20.0 ng/mL (>3.0) 12/11/17 05:30 Urine Source [place] 12/15/17 16:30 Urine Color YELLOW 12/15/17 16:30 Urine Clarity CLEAR (CLEAR) 12/15/17 16:30 Urine pH 6.0 (4.6 - 8.0) 12/15/17 16:30 Ur Specific [place] 1.015 (1.005-1.030) 12/15/17 16:30 Urine Protein 30 mg/dL (NEGATIVE) H 12/15/17 16:30 Urine Glucose (UA) NEGATIVE mg/dL (NEGATIVE) 12/15/17 16:30 Urine Ketones NEGATIVE mg/dL (NEGATIVE) 12/15/17 16:30 Urine Blood LARGE (NEGATIVE) H 12/15/17 16:30 Urine Nitrate NEGATIVE (NEGATIVE) 12/15/17 16:30 Urine Bilirubin NEGATIVE (NEGATIVE) 12/15/17 16:30 Urine Urobilinogen 0.2 E.U./dL (0.2 - 1.0) 12/15/17 16:30 Ur Leukocyte Esterase NEGATIVE (NEGATIVE) 12/15/17 16:30 Urine RBC 2-5 /hpf (0-5) H 12/15/17 16:30 Urine WBC 2-5 /hpf (0-5) 12/15/17 16:30 Ur Epithelial Cells RARE /lpf (FEW) 12/15/17 16:30 Urine Bacteria OCCASIONAL /hpf (NONE SEEN) 12/15/17 16:30 Stool Occult Blood POSITIVE (NEGATIVE) H 12/13/17 13:20 Helicobacter pylori Ab NEGATIVE (NEGATIVE) 12/16/17 14:40 Blood Type A POSITIVE 12/15/17 06:20 Antibody Screen NEGATIVE 12/15/17 06:20 Crossmatch See Detail 12/15/17 06:20 - Physical Exam Vitals and I&O: Vital Signs Temp 97.9 F 12/19/17 12:00 Pulse 85 12/19/17 14:07 Resp 17 12/19/17 15:38 BP 129/82 12/19/17 12:00 Pulse Ox 98 12/19/17 14:07 Intake & Output 12/18/17 12/19/17 12/19/17 18:59 06:59 18:59 Intake Total 500 900 Output Total 700 1000 Balance -200 -100 Weight (lbs) 97.522 kg 96.162 kg Intake: Intake, IV Amount 100 100 Piperacillin Sodium/ 100 100 Tazobact 3.375 gm In Sodium Chloride 0.9% 50 ml @ 100 mls/hr IV Q6HR [facility] Rx#:[id number] Tube Feeding 400 600 Other 200 Output: Urine 700 1000 Other: # Bowel Movements 2 1 Active Medications: Current Medications Acetaminophen (Tylenol 650mg Supp) 650 mg RC Q4H PRN PRN Reason: Fever > 101 Stop: 02/08/18 23:09 Albuterol/Ipratropium (Duoneb Neb) 3 ml HHN Q6HRT [facility] Stop: 02/09/18 00:59 Last Admin: 12/19/17 14:04 Dose: 3 ml Amlodipine Besylate (Norvasc) 5 mg GT DAILY [facility] Stop: 02/09/18 08:59 Last Admin: 12/19/17 09:30 Dose: 5 mg Atorvastatin Calcium (Lipitor) 20 mg GT HS [facility] Stop: 02/09/18 20:59 Last Admin: 12/18/17 20:54 Dose: 20 mg Carvedilol (Coreg) 3.125 mg GT BID [facility] Stop: 02/09/18 08:59 Last Admin: 12/19/17 09:30 Dose: 3.125 mg [place] Oil/[place] Balsam/Trypsin (Venelex) 1 appl TP DAILY [facility] Stop: 02/09/18 08:59 Last Admin: 12/19/17 09:31 Dose: 1 appl Dextrose (D50w) 50 ml IVP PRN PRN PRN Reason: Blood Glucose less than 70 Stop: 02/13/18 15:17 Dextrose (Glutose 40%) 18.75 gm PO PRN PRN PRN Reason: Blood Glucose less than 70 Stop: 02/13/18 15:17 Diltiazem HCl (Cardizem) 20 mg IVP Q4HR PRN PRN Reason: HR above 110 Stop: 02/08/18 23:09 Last Admin: 12/12/17 23:15 Dose: 20 mg Fluconazole (Diflucan) 100 mg PO DAILY [facility] Stop: 02/09/18 08:59 Last Admin: 12/19/17 09:30 Dose: 100 mg Folic Acid (Folate) 1 mg GT DAILY [facility] Stop: 02/10/18 08:59 Last Admin: 12/19/17 09:30 Dose: 1 mg Glucagon (Glucagen) 1 mg IM PRN PRN PRN Reason: Blood Glucose less than 70 Stop: 02/13/18 15:17 Piperacillin Sod/Tazobactam (Sod 3.375 gm/ Sodium Chloride) 50 mls @ 100 mls/ hr IV Q6HR [facility] Stop: 02/09/18 00:00 Last Admin: 12/19/17 12:01 Dose: 100 mls/hr Dextrose (D5w) 1,000 mls @ 75 mls/hr IV .[id number] [facility] Stop: 02/13/18 14:34 Last Admin: 12/17/17 17:28 Dose: 75 mls/hr Insulin Aspart (Novolog Insulin Sliding Scale) 0 units SUBQ Q6HR [facility] PRN Reason: Protocol Stop: 02/09/18 00:00 Last Admin: 12/19/17 11:53 Dose: Not Given Insulin Detemir (Levemir Insulin) 14 units SUBQ BID [facility] PRN Reason: Protocol Stop: 02/09/18 08:59 Last Admin: 12/19/17 09:32 Dose: Not Given Miscellaneous (Probiotic Screen) 1 ea MC PRN PRN PRN Reason: PROTOCOL Stop: 02/10/18 17:05 Miscellaneous (Vte Chemical Prophylaxis Screen/ Admission) 1 ea MC PRN PRN PRN Reason: PROTOCOL Stop: 02/13/18 10:23 Morphine Sulfate (Morphine) 1 mg IVP Q4HR PRN PRN Reason: Pain (Severe) Stop: 02/10/18 23:46 Last Admin: 12/14/17 18:10 Dose: 1 mg Neomycin/Polymyxin/Bacitracin (Triple Antibiotic Pkt) 1 pkt TP DAILY [facility] Stop: 02/09/18 08:59 Last Admin: 12/19/17 09:31 Dose: 1 pkt Nystatin (Nystop) 0 units TP BID [facility] Stop: 02/13/18 20:29 Last Admin: 12/19/17 09:29 Dose: 100,000 units Pantoprazole Sodium (Protonix) 40 mg IVP BID [facility] Stop: 02/09/18 08:59 Last Admin: 12/19/17 09:29 Dose: 40 mg Potassium Chloride (Klor-Con) 20 meq PO DAILY [facility] Stop: 02/15/18 13:59 Last Admin: 12/19/17 09:30 Dose: 20 meq General: No acute distress HEENT: PERRLA, EOMI, Mucous membr. moist/pink Neck: Supple, +2 carotid pulse wo bruit Cardiovascular: Regular rate, Normal S1, Normal S2 Lungs: Other (decreased BS) Abdomen: Bowel sounds, Soft Extremities: Other (upper ext), no Edema Neurological: Sensation intact Skin: no Rash Psych/Mental Status: Mood NL - Procedures Procedures: Procedures Procedure Code Date BLOOD TRANSFUSION SERVICE 96531 12/10/17 EXCISION OF STOMACH, ENDO, DIAGN [id number] 11/15/17 INSERT TUNNELED CV CATH 33990 11/15/17 INSERTION OF FEEDING DEVICE INTO STOMACH, ENDO [id number] 11/15/17 INSERTION OF INFUSION DEV INTO R SUBCLAV VEIN, PERC APPROACH [id number] 11/15/17 PERFORMANCE OF URINARY FILTRATION, <6 HRS/DAY [id number] 11/15/17 REMOVAL OF INFUSION DEVICE FROM UPPER VEIN, PERC APPROACH [id number] 11/15/17 TRANSFUSE NONAUT RED BLOOD CELLS IN PERIPH VEIN, PERC 02328Q0 12/10/17 ULTRASONOGRAPHY OF RIGHT SUBCLAVIAN VEIN, GUIDANCE [id number] 11/15/17 Assessment/Plan - Assessment Assessment: PENNY Hypernatremia, Hypokalemia CVA Type 2 DM Ess Htn Thrombocytopenia Severe Anemia B/L Scrotal Hydrocele Left HAP - Plan Plan: Lab - Result Diagrams 12/13/17 07:45 12/13/17 07:45 Current Medications Acetaminophen (Tylenol 650mg Supp) 650 mg RC Q4H PRN PRN Reason: Fever > 101 Stop: 02/08/18 23:09 Albuterol/Ipratropium (Duoneb Neb) 3 ml HHN Q6HRT [facility] Stop: 02/09/18 00:59 Last Admin: 12/13/17 12:42 Dose: 3 ml Amlodipine Besylate (Norvasc) 5 mg GT DAILY [facility] Stop: 02/09/18 08:59 Last Admin: 12/13/17 08:52 Dose: 5 mg Atorvastatin Calcium (Lipitor) 20 mg GT HS [facility] Stop: 02/09/18 20:59 Last Admin: 12/12/17 21:41 Dose: 20 mg Carvedilol (Coreg) 3.125 mg GT BID [facility] Stop: 02/09/18 08:59 Last Admin: 12/13/17 08:52 Dose: 3.125 mg [place] Oil/[place] Balsam/Trypsin (Venelex) 1 appl TP DAILY [facility] Stop: 02/09/18 08:59 Last Admin: 12/13/17 08:55 Dose: 1 appl Diltiazem HCl (Cardizem) 20 mg IVP Q4HR PRN PRN Reason: HR above 110 Stop: 02/08/18 23:09 Last Admin: 12/12/17 23:15 Dose: 20 mg Fluconazole (Diflucan) 100 mg PO DAILY [facility] Stop: 02/09/18 08:59 Last Admin: 12/13/17 08:51 Dose: 100 mg Folic Acid (Folate) 1 mg GT DAILY [facility] Stop: 02/10/18 08:59 Last Admin: 12/13/17 08:52 Dose: 1 mg Glucagon (Glucagen) 1 mg IM PRN PRN PRN Reason: BS BELOW 60 & NOT TOLERATE PO Stop: 02/08/18 23:14 Piperacillin Sod/Tazobactam (Sod 3.375 gm/ Sodium Chloride) 50 mls @ 100 mls/ hr IV Q6HR [facility] Stop: 02/09/18 00:00 Last Admin: 12/13/17 12:49 Dose: 100 mls/hr Dextrose (D5w) 1,000 mls @ 50 mls/hr IV .Q20H [facility] Stop: 02/10/18 08:25 Last Admin: 12/13/17 08:53 Dose: 50 mls/hr Insulin Aspart (Novolog Insulin Sliding Scale) 0 units SUBQ Q6HR [facility] PRN Reason: Protocol Stop: 02/09/18 00:00 Last Admin: 12/13/17 12:49 Dose: 2 units Insulin Detemir (Levemir Insulin) 14 units SUBQ BID [facility] PRN Reason: Protocol Stop: 02/09/18 08:59 Last Admin: 12/13/17 08:54 Dose: 14 units Miscellaneous (Probiotic Screen) 1 ea MC PRN PRN PRN Reason: PROTOCOL Stop: 02/10/18 17:05 Morphine Sulfate (Morphine) 1 mg IVP Q4HR PRN PRN Reason: Pain (Severe) Stop: 02/10/18 23:46 Last Admin: 12/13/17 01:43 Dose: 1 mg Neomycin/Polymyxin/Bacitracin (Triple Antibiotic Pkt) 1 pkt TP DAILY [facility] Stop: 02/09/18 08:59 Last Admin: 12/13/17 08:52 Dose: 1 pkt Pantoprazole Sodium (Protonix) 40 mg IVP BID [facility] Stop: 02/09/18 08:59 Last Admin: 12/13/17 08:53 Dose: 40 Lab - Result Diagrams 12/19/17 05:53 12/19/17 05:53 Na & BUN gradually improving Has mild upper ext edema scrotal US B/L Hydrocele On H20 flushes,increase D5W to 70 ml/hr Duplex scan no RUE DVT CXR left consolidation replace K Na same @ 148 f/u electrolytes Nutritional Asmnt/Malnutr-PDOC - Dietary Evaluation Malnutrition Findings (Please click <Entered> for more info): Nutritional Asmnt/Malnutrition Start: 12/13/17 16: 00 Text: Status: Complete Freq: Document 12/13/17 16:00 LCHENG (Rec: 12/13/17 16:22 [email or web address] [email or web address]) Nutritional Asmnt/Malnutrition Patient General Information Nutritional Screening High Risk Consult Diagnosis sepsis, PNA, rsepiratory failure, PENNY Pertinent Medical Hx/Surgical Hx DM, HTN, dementia, psychotic dysphagia Subjective Information Pt seen resting in bed at time of visit. TF was off at this time. Spoke with RN, RN reported pt tolerated TF well. Current Diet Order/ Nutrition Support novosource 50ml x 20hr, providing 2000kcal, 91g protein Pertinent Medications D5w, folate, glucagen, novolog , levemir, triple antibiotic pkt, protonix, piperacillin Pertinent Labs 2/5 Na 158, K 3.6, Cl 127, BUN 65, Cr 1.3, Glucose 240, POC 170-249 Nutritional Hx/Data Height 1.85 m Height (Calculated Centimeters) 185.4 Current Weight (lbs) 68.039 kg Weight (Calculated Kilograms) 68.0 Weight (Calculated Grams) 14086.9 [place] Body Weight 184 % [place] Body Weight 82 Body Mass Index (BMI) 19.8 Weight Status Approriate GI Symptoms GI Symptoms None Last BM 2/5 Difficult in: None Skin Integrity/Comment: decubitus ulceration to right buttocks, bruise to RUE, maceration to scrotum Estimated Nutritional Goals BEE in Kcals: Using Current wt Calories/Kcals/Kg 27-32 Kcals Calculated 8973-2923 Protein: Using Current wt Protein g/k.2-1.4 monitor renal labs Protein Calculated 81-95 Fluid: ml 1836-2176ml (1ml/kcal) Nutritional Problem 1. Problem Problem altered nutrition related lab values Etiology dx of PENNY, hx of DM Signs/Symptoms: Na 158, BUN 65, Glucose 240, POC 170-249 Malnutrition Alert Protein-Calorie Malnutrition N/A Is there a minimum of two criteria No selected? Query Text:Check all the applicable criteria. A minimum of two criteria are recommended for diagnosis of either severe or non-severe malnutrition. Intervention/Recommendation Comments 1. Continue with current TF regimen. It provides 2000kcal, 91g protein, meeting 100% of nutritional needs 2. Monitor TF rate, tolerance, wt weekly, skin integrity and labs 3. F/U as moderate risk in 3-5 days, 12/16-12/18 Expected Outcomes/Goals Expected Outcomes/Goals 1. Pt to meet at least 75% of nutritional needs via nutrition support with tolerance 2. Wt stability, skin to remain intact, labs to approach WNL.
--- NOTE | 2017-12-19 17:46 | Infectious Disease Prog Note ---
Infectious Disease Subjective - Review of Systems Service Date: 12/19/17 Subjective: cc uti hematuria pn hpi- pt on iv bax hb 8 after transfusion all cx negative so far zosyn discontinued ros no fevr o/e vss chaest ckar abd soft ext pulse Infectious Disease Objective - Results Result Diagrams: 12/19/17 05:53 12/19/17 05:53 Recent Labs: Laboratory Last Values WBC 8.4 Th/cmm (4.8-10.8) 12/19/17 05:53 Corrected WBC (auto) 4.4 Th/cmm 12/12/17 23:59 RBC 2.54 Mil/cmm (3.80-5.80) L 12/19/17 05:53 Hgb 8.4 gm/dL (12-16) L 12/19/17 05:53 Hct 24.5 % (41.0-60) L 12/19/17 05:53 MCV 96.6 fl (80-99) 12/19/17 05:53 MCH 33.0 pg (27.0-31.0) H 12/19/17 05:53 MCHC Differential 34.1 pg (28.0-36.0) 12/19/17 05:53 RDW 15.2 % (11.5-20.0) 12/19/17 05:53 Plt Count 227 Th/cmm (150-400) D 12/19/17 05:53 MPV 9.9 fl 12/19/17 05:53 Neutrophils % 79.9 % (40.0-80.0) 12/19/17 05:53 Band Neutrophils % 10 % (0-10) 12/12/17 23:59 Lymphocytes % 14.1 % (20.0-50.0) L 12/19/17 05:53 Monocytes % 5.2 % (2.0-10.0) 12/19/17 05:53 Eosinophils % 0.7 % (0.0-5.0) 12/19/17 05:53 Basophils % 0.1 % (0.0-2.0) 12/19/17 05:53 Neutrophils (Manual) 60 % (40-80) 12/12/17 23:59 Lymphocytes 20 % (20-50) 12/12/17 23:59 Monocytes 6 % (2-10) 12/12/17 23:59 Eosinophils 4 % (0-5) 12/12/17 23:59 Nucleated RBCs 6.0 % (0-0) H 12/12/17 23:59 Platelet Estimate SLIGHT DECREASED (NORMAL) 12/12/17 23:59 Platelet Morphology GIANT PLATELETS SEEN (NORMAL) 12/11/17 17:58 Polychromasia 1+ 12/11/17 17:58 Anisocytosis 1+ 12/11/17 17:58 RBC Morph Micro Appear ABNORMAL (NORMAL) 12/11/17 17:58 PT 11.9 SECONDS (9.5-11.5) H 12/15/17 06:20 INR 1.13 (0.5-1.4) 12/15/17 06:20 PTT (Actin FS) 26.9 SECONDS (26.0-38.0) 12/15/17 06:20 Specimen Source Arterial 12/10/17 14:05 Sample Site Left Radial 12/10/17 14:05 pH 7.51 (7.35-7.45) H 12/10/17 14:05 pCO2 36.0 mmHg (35.0-45.0) 12/10/17 14:05 pO2 102.0 mmHg (80.0-100.0) H 12/10/17 14:05 HCO3 29.2 mEq/L (20.0-26.0) H 12/10/17 14:05 Base Excess 5.5 mEq/L (-3.0-3.0) H 12/10/17 14:05 O2 Saturation 98.0 % (92.0-100.0) 12/10/17 14:05 Mario Test YES 12/10/17 14:05 Vent Rate NA 12/10/17 14:05 Inspired O2 50 12/10/17 14:05 Tidal Volume NA 12/10/17 14:05 PEEP NA 12/10/17 14:05 Pressure (ins/psv/peep) NA 12/10/17 14:05 Critical Value E.PICHARDO 12/10/17 14:05 Sodium 148 mEq/L (136-145) H 12/19/17 05:53 Potassium 3.5 mEq/L (3.5-5.1) 12/19/17 05:53 Chloride 119 mEq/L (98-107) H 12/19/17 05:53 Carbon Dioxide 25.7 mEq/L (21.0-31.0) 12/19/17 05:53 Anion Gap 6.8 (7.0-16.0) L 12/19/17 05:53 BUN 24 mg/dL (7-25) 12/19/17 05:53 Creatinine 0.8 mg/dL (0.7-1.3) 02 05:53 Est GFR ( Amer) TNP 12/19/17 05:53 Est GFR (Non-Af Amer) TNP 12/19/17 05:53 BUN/Creatinine Ratio 30.0 12/19/17 05:53 Glucose 178 mg/dL (70-105) H 12/19/17 05:53 POC Glucose 208 MG/DL (70 - 105) H 12/19/17 17:23 Hemoglobin A1c % 6.4 % (4.0-6.0) H 12/11/17 05:30 Whole Bld Lactic Acid 1.12 mmol/L (0.60-1.99) 12/11/17 07:37 Calcium 8.4 mg/dL (8.6-10.3) L 12/19/17 05:53 Phosphorus 2.7 mg/dL (2.5-5.0) 12/16/17 06:50 Magnesium 2.0 mg/dL (1.9-2.7) 12/17/17 05:50 Iron 26 ug/dL (38-169) L 12/11/17 05:30 TIBC 161 ug/dL (250-450) L 12/11/17 05:30 Iron Saturation 16 % (15-55) 12/11/17 05:30 Unsaturated IBC 135 ug/dL (111-343) 12/11/17 05:30 Ferritin 513 ng/mL (30-400) H 12/11/17 05:30 Total Bilirubin 0.3 mg/dL (0.3-1.0) 12/19/17 05:53 AST 74 U/L (13-39) H 12/19/17 05:53 ALT 89 U/L (7-52) H 12/19/17 05:53 Alkaline Phosphatase 151 U/L (34-104) H 12/19/17 05:53 Troponin I 0.44 ng/mL (0.01-0.05) H* D 12/10/17 14:06 B-Natriuretic Peptide 532.0 pg/mL (5.0-100.0) H 12/10/17 14:06 Total Protein 4.7 gm/dL (6.0-8.3) L 12/19/17 05:53 Albumin 2.1 gm/dL (4.2-5.5) L 12/19/17 05:53 Globulin 2.6 gm/dL 12/19/17 05:53 Albumin/Globulin Ratio 0.8 (1.0-1.8) L 12/19/17 05:53 Vitamin B12 1620 pg/mL (232-1245) H 12/11/17 05:30 Folic Acid >20.0 ng/mL (>3.0) 12/11/17 05:30 Urine Source [place] 12/15/17 16:30 Urine Color YELLOW 12/15/17 16:30 Urine Clarity CLEAR (CLEAR) 12/15/17 16:30 Urine pH 6.0 (4.6 - 8.0) 12/15/17 16:30 Ur Specific [place] 1.015 (1.005-1.030) 12/15/17 16:30 Urine Protein 30 mg/dL (NEGATIVE) H 12/15/17 16:30 Urine Glucose (UA) NEGATIVE mg/dL (NEGATIVE) 12/15/17 16:30 Urine Ketones NEGATIVE mg/dL (NEGATIVE) 12/15/17 16:30 Urine Blood LARGE (NEGATIVE) H 12/15/17 16:30 Urine Nitrate NEGATIVE (NEGATIVE) 12/15/17 16:30 Urine Bilirubin NEGATIVE (NEGATIVE) 12/15/17 16:30 Urine Urobilinogen 0.2 E.U./dL (0.2 - 1.0) 12/15/17 16:30 Ur Leukocyte Esterase NEGATIVE (NEGATIVE) 12/15/17 16:30 Urine RBC 2-5 /hpf (0-5) H 12/15/17 16:30 Urine WBC 2-5 /hpf (0-5) 12/15/17 16:30 Ur Epithelial Cells RARE /lpf (FEW) 12/15/17 16:30 Urine Bacteria OCCASIONAL /hpf (NONE SEEN) 12/15/17 16:30 Stool Occult Blood POSITIVE (NEGATIVE) H 12/13/17 13:20 Helicobacter pylori Ab NEGATIVE (NEGATIVE) 12/16/17 14:40 Blood Type A POSITIVE 12/15/17 06:20 Antibody Screen NEGATIVE 12/15/17 06:20 Crossmatch See Detail 12/15/17 06:20 - Physical Exam Vitals and I&O: Vital Signs Temp 98.1 F 12/19/17 16:00 Pulse 88 12/19/17 16:34 Resp 16 12/19/17 16:00 BP 147/66 12/19/17 16:34 Pulse Ox 98 12/19/17 16:00 Intake & Output 12/18/17 12/19/17 12/19/17 18:59 06:59 18:59 Intake Total 500 900 Output Total 700 1000 Balance -200 -100 Weight (lbs) 97.522 kg 96.162 kg Intake: Intake, IV Amount 100 100 Piperacillin Sodium/ 100 100 Tazobact 3.375 gm In Sodium Chloride 0.9% 50 ml @ 100 mls/hr IV Q6HR [facility] Rx#:[id number] Tube Feeding 400 600 Other 200 Output: Urine 700 1000 Other: # Bowel Movements 2 1 Active Medications: Current Medications Acetaminophen (Tylenol 650mg Supp) 650 mg RC Q4H PRN PRN Reason: Fever > 101 Stop: 02/08/18 23:09 Albuterol/Ipratropium (Duoneb Neb) 3 ml HHN Q6HRT [facility] Stop: 02/09/18 00:59 Last Admin: 12/19/17 14:04 Dose: 3 ml Amlodipine Besylate (Norvasc) 5 mg GT DAILY [facility] Stop: 02/09/18 08:59 Last Admin: 12/19/17 09:30 Dose: 5 mg Atorvastatin Calcium (Lipitor) 20 mg GT HS [facility] Stop: 02/09/18 20:59 Last Admin: 12/18/17 20:54 Dose: 20 mg Carvedilol (Coreg) 3.125 mg GT BID [facility] Stop: 02/09/18 08:59 Last Admin: 12/19/17 16:34 Dose: 3.125 mg [place] Oil/[place] Balsam/Trypsin (Venelex) 1 appl TP DAILY [facility] Stop: 02/09/18 08:59 Last Admin: 12/19/17 09:31 Dose: 1 appl Dextrose (D50w) 50 ml IVP PRN PRN PRN Reason: Blood Glucose less than 70 Stop: 02/13/18 15:17 Dextrose (Glutose 40%) 18.75 gm PO PRN PRN PRN Reason: Blood Glucose less than 70 Stop: 02/13/18 15:17 Diltiazem HCl (Cardizem) 20 mg IVP Q4HR PRN PRN Reason: HR above 110 Stop: 02/08/18 23:09 Last Admin: 12/12/17 23:15 Dose: 20 mg Fluconazole (Diflucan) 100 mg PO DAILY [facility] Stop: 02/09/18 08:59 Last Admin: 12/19/17 09:30 Dose: 100 mg Folic Acid (Folate) 1 mg GT DAILY [facility] Stop: 02/10/18 08:59 Last Admin: 12/19/17 09:30 Dose: 1 mg Glucagon (Glucagen) 1 mg IM PRN PRN PRN Reason: Blood Glucose less than 70 Stop: 02/13/18 15:17 Dextrose (D5w) 1,000 mls @ 75 mls/hr IV .[id number] [facility] Stop: 02/13/18 14:34 Last Admin: 12/17/17 17:28 Dose: 75 mls/hr Insulin Aspart (Novolog Insulin Sliding Scale) 0 units SUBQ Q6HR [facility] PRN Reason: Protocol Stop: 02/09/18 00:00 Last Admin: 12/19/17 17:28 Dose: 2 units Insulin Detemir (Levemir Insulin) 14 units SUBQ BID [facility] PRN Reason: Protocol Stop: 02/09/18 08:59 Last Admin: 12/19/17 17:28 Dose: 14 units Miscellaneous (Probiotic Screen) 1 ea MC PRN PRN PRN Reason: PROTOCOL Stop: 02/10/18 17:05 Miscellaneous (Vte Chemical Prophylaxis Screen/ Admission) 1 ea MC PRN PRN PRN Reason: PROTOCOL Stop: 02/13/18 10:23 Morphine Sulfate (Morphine) 1 mg IVP Q4HR PRN PRN Reason: Pain (Severe) Stop: 02/10/18 23:46 Last Admin: 12/14/17 18:10 Dose: 1 mg Neomycin/Polymyxin/Bacitracin (Triple Antibiotic Pkt) 1 pkt TP DAILY [facility] Stop: 02/09/18 08:59 Last Admin: 12/19/17 09:31 Dose: 1 pkt Nystatin (Nystop) 0 units TP BID [facility] Stop: 02/13/18 20:29 Last Admin: 12/19/17 16:33 Dose: 100,000 units Pantoprazole Sodium (Protonix) 40 mg IVP BID [facility] Stop: 02/09/18 08:59 Last Admin: 12/19/17 16:32 Dose: 40 mg Potassium Chloride (Klor-Con) 20 meq PO DAILY [facility] Stop: 02/15/18 13:59 Last Admin: 12/19/17 09:30 Dose: 20 meq - Procedures Procedures: Procedures Procedure Code Date BLOOD TRANSFUSION SERVICE 50418 12/10/17 EXCISION OF STOMACH, ENDO, DIAGN [id number] 11/15/17 INSERT TUNNELED CV CATH 72999 11/15/17 INSERTION OF FEEDING DEVICE INTO STOMACH, ENDO [id number] 11/15/17 INSERTION OF INFUSION DEV INTO R SUBCLAV VEIN, PERC APPROACH 37M066C 11/15/17 PERFORMANCE OF URINARY FILTRATION, <6 HRS/DAY [id number] 11/15/17 REMOVAL OF INFUSION DEVICE FROM UPPER VEIN, PERC APPROACH [id number] 11/15/17 TRANSFUSE NONAUT RED BLOOD CELLS IN PERIPH VEIN, PERC 41998M7 12/10/17 ULTRASONOGRAPHY OF RIGHT SUBCLAVIAN VEIN, GUIDANCE [id number] 11/15/17 Nutritional Asmnt/Malnutr-PDOC - Dietary Evaluation Malnutrition Findings (Please click <Entered> for more info): Nutritional Asmnt/Malnutrition Start: 12/13/17 16: 00 Text: Status: Complete Freq: Document 12/13/17 16:00 COSMO (Rec: 12/13/17 16:22 [facility] Nutritional Asmnt/Malnutrition Patient General Information Nutritional Screening High Risk Consult Diagnosis sepsis, PNA, rsepiratory failure, PENNY Pertinent Medical Hx/Surgical Hx DM, HTN, dementia, psychotic dysphagia Subjective Information Pt seen resting in bed at time of visit. TF was off at this time. Spoke with RN, RN reported pt tolerated TF well. Current Diet Order/ Nutrition Support novosource 50ml x 20hr, providing 2000kcal, 91g protein Pertinent Medications D5w, folate, glucagen, novolog , levemir, triple antibiotic pkt, protonix, piperacillin Pertinent Labs 2/5 Na 158, K 3.6, Cl 127, BUN 65, Cr 1.3, Glucose 240, POC 170-249 Nutritional Hx/Data Height 1.85 m Height (Calculated Centimeters) 185.4 Current Weight (lbs) 68.039 kg Weight (Calculated Kilograms) 68.0 Weight (Calculated Grams) 30005.9 [place] Body Weight 184 % [place] Body Weight 82 Body Mass Index (BMI) 19.8 Weight Status Approriate GI Symptoms GI Symptoms None Last BM 2/5 Difficult in: None Skin Integrity/Comment: decubitus ulceration to right buttocks, bruise to RUE, maceration to scrotum Estimated Nutritional Goals BEE in Kcals: Using Current wt Calories/Kcals/Kg 27-32 Kcals Calculated 3006-1957 Protein: Using Current wt Protein g/k.2-1.4 monitor renal labs Protein Calculated 81-95 Fluid: ml 1836-2176ml (1ml/kcal) Nutritional Problem 1. Problem Problem altered nutrition related lab values Etiology dx of PENNY, hx of DM Signs/Symptoms: Na 158, BUN 65, Glucose 240, POC 170-249 Malnutrition Alert Protein-Calorie Malnutrition N/A Is there a minimum of two criteria No selected? Query Text:Check all the applicable criteria. A minimum of two criteria are recommended for diagnosis of either severe or non-severe malnutrition. Intervention/Recommendation Comments 1. Continue with current TF regimen. It provides 2000kcal, 91g protein, meeting 100% of nutritional needs 2. Monitor TF rate, tolerance, wt weekly, skin integrity and labs 3. F/U as moderate risk in 3-5 days, 12/16-12/18 Expected Outcomes/Goals Expected Outcomes/Goals 1. Pt to meet at least 75% of nutritional needs via nutrition support with tolerance 2. Wt stability, skin to remain intact, labs to approach WNL.
--- NOTE | 2017-12-19 19:34 | Internal Medicine Prog Note ---
Internal Medicine Subjective - Subjective Service Date: 12/19/17 Patient seen and examined:: with staff (no gi bleeding) Patient is:: non-verbal, in bed, confused Per staff patient has:: no adverse event Internal Medicine Objective - Results Result Diagrams: 12/19/17 05:53 12/19/17 05:53 Recent Labs: Laboratory Last Values WBC 8.4 Th/cmm (4.8-10.8) 12/19/17 05:53 Corrected WBC (auto) 4.4 Th/cmm 12/12/17 23:59 RBC 2.54 Mil/cmm (3.80-5.80) L 12/19/17 05:53 Hgb 8.4 gm/dL (12-16) L 12/19/17 05:53 Hct 24.5 % (41.0-60) L 12/19/17 05:53 MCV 96.6 fl (80-99) 12/19/17 05:53 MCH 33.0 pg (27.0-31.0) H 12/19/17 05:53 MCHC Differential 34.1 pg (28.0-36.0) 12/19/17 05:53 RDW 15.2 % (11.5-20.0) 12/19/17 05:53 Plt Count 227 Th/cmm (150-400) D 12/19/17 05:53 MPV 9.9 fl 12/19/17 05:53 Neutrophils % 79.9 % (40.0-80.0) 12/19/17 05:53 Band Neutrophils % 10 % (0-10) 12/12/17 23:59 Lymphocytes % 14.1 % (20.0-50.0) L 12/19/17 05:53 Monocytes % 5.2 % (2.0-10.0) 12/19/17 05:53 Eosinophils % 0.7 % (0.0-5.0) 12/19/17 05:53 Basophils % 0.1 % (0.0-2.0) 12/19/17 05:53 Neutrophils (Manual) 60 % (40-80) 12/12/17 23:59 Lymphocytes 20 % (20-50) 12/12/17 23:59 Monocytes 6 % (2-10) 12/12/17 23:59 Eosinophils 4 % (0-5) 12/12/17 23:59 Nucleated RBCs 6.0 % (0-0) H 12/12/17 23:59 Platelet Estimate SLIGHT DECREASED (NORMAL) 12/12/17 23:59 Platelet Morphology GIANT PLATELETS SEEN (NORMAL) 12/11/17 17:58 Polychromasia 1+ 12/11/17 17:58 Anisocytosis 1+ 12/11/17 17:58 RBC Morph Micro Appear ABNORMAL (NORMAL) 12/11/17 17:58 PT 11.9 SECONDS (9.5-11.5) H 12/15/17 06:20 INR 1.13 (0.5-1.4) 12/15/17 06:20 PTT (Actin FS) 26.9 SECONDS (26.0-38.0) 12/15/17 06:20 Specimen Source Arterial 12/10/17 14:05 Sample Site Left Radial 12/10/17 14:05 pH 7.51 (7.35-7.45) H 12/10/17 14:05 pCO2 36.0 mmHg (35.0-45.0) 12/10/17 14:05 pO2 102.0 mmHg (80.0-100.0) H 12/10/17 14:05 HCO3 29.2 mEq/L (20.0-26.0) H 12/10/17 14:05 Base Excess 5.5 mEq/L (-3.0-3.0) H 12/10/17 14:05 O2 Saturation 98.0 % (92.0-100.0) 12/10/17 14:05 Mario Test YES 12/10/17 14:05 Vent Rate NA 12/10/17 14:05 Inspired O2 50 12/10/17 14:05 Tidal Volume NA 12/10/17 14:05 PEEP NA 12/10/17 14:05 Pressure (ins/psv/peep) NA 12/10/17 14:05 Critical Value E.PICHARDO 12/10/17 14:05 Sodium 148 mEq/L (136-145) H 12/19/17 05:53 Potassium 3.5 mEq/L (3.5-5.1) 12/19/17 05:53 Chloride 119 mEq/L (98-107) H 12/19/17 05:53 Carbon Dioxide 25.7 mEq/L (21.0-31.0) 12/19/17 05:53 Anion Gap 6.8 (7.0-16.0) L 12/19/17 05:53 BUN 24 mg/dL (7-25) 12/19/17 05:53 Creatinine 0.8 mg/dL (0.7-1.3) 12/19/17 05:53 Est GFR ( Amer) TNP 12/19/17 05:53 Est GFR (Non-Af Amer) TNP 12/19/17 05:53 BUN/Creatinine Ratio 30.0 12/19/17 05:53 Glucose 178 mg/dL (70-105) H 12/19/17 05:53 POC Glucose 208 MG/DL (70 - 105) H 12/19/17 17:23 Hemoglobin A1c % 6.4 % (4.0-6.0) H 12/11/17 05:30 Whole Bld Lactic Acid 1.12 mmol/L (0.60-1.99) 12/11/17 07:37 Calcium 8.4 mg/dL (8.6-10.3) L 12/19/17 05:53 Phosphorus 2.7 mg/dL (2.5-5.0) 12/16/17 06:50 Magnesium 2.0 mg/dL (1.9-2.7) 12/17/17 05:50 Iron 26 ug/dL (38-169) L 12/11/17 05:30 TIBC 161 ug/dL (250-450) L 12/11/17 05:30 Iron Saturation 16 % (15-55) 12/11/17 05:30 Unsaturated IBC 135 ug/dL (111-343) 12/11/17 05:30 Ferritin 513 ng/mL (30-400) H 12/11/17 05:30 Total Bilirubin 0.3 mg/dL (0.3-1.0) 12/19/17 05:53 AST 74 U/L (13-39) H 12/19/17 05:53 ALT 89 U/L (7-52) H 12/19/17 05:53 Alkaline Phosphatase 151 U/L (34-104) H 12/19/17 05:53 Troponin I 0.44 ng/mL (0.01-0.05) H* D 12/10/17 14:06 B-Natriuretic Peptide 532.0 pg/mL (5.0-100.0) H 12/10/17 14:06 Total Protein 4.7 gm/dL (6.0-8.3) L 12/19/17 05:53 Albumin 2.1 gm/dL (4.2-5.5) L 12/19/17 05:53 Globulin 2.6 gm/dL 12/19/17 05:53 Albumin/Globulin Ratio 0.8 (1.0-1.8) L 12/19/17 05:53 Vitamin B12 1620 pg/mL (232-1245) H 12/11/17 05:30 Folic Acid >20.0 ng/mL (>3.0) 12/11/17 05:30 Urine Source [place] 12/15/17 16:30 Urine Color YELLOW 12/15/17 16:30 Urine Clarity CLEAR (CLEAR) 12/15/17 16:30 Urine pH 6.0 (4.6 - 8.0) 12/15/17 16:30 Ur Specific [place] 1.015 (1.005-1.030) 12/15/17 16:30 Urine Protein 30 mg/dL (NEGATIVE) H 12/15/17 16:30 Urine Glucose (UA) NEGATIVE mg/dL (NEGATIVE) 12/15/17 16:30 Urine Ketones NEGATIVE mg/dL (NEGATIVE) 12/15/17 16:30 Urine Blood LARGE (NEGATIVE) H 12/15/17 16:30 Urine Nitrate NEGATIVE (NEGATIVE) 12/15/17 16:30 Urine Bilirubin NEGATIVE (NEGATIVE) 12/15/17 16:30 Urine Urobilinogen 0.2 E.U./dL (0.2 - 1.0) 12/15/17 16:30 Ur Leukocyte Esterase NEGATIVE (NEGATIVE) 12/15/17 16:30 Urine RBC 2-5 /hpf (0-5) H 12/15/17 16:30 Urine WBC 2-5 /hpf (0-5) 12/15/17 16:30 Ur Epithelial Cells RARE /lpf (FEW) 12/15/17 16:30 Urine Bacteria OCCASIONAL /hpf (NONE SEEN) 12/15/17 16:30 Stool Occult Blood POSITIVE (NEGATIVE) H 12/13/17 13:20 Helicobacter pylori Ab NEGATIVE (NEGATIVE) 12/16/17 14:40 Blood Type A POSITIVE 12/15/17 06:20 Antibody Screen NEGATIVE 12/15/17 06:20 Crossmatch See Detail 12/15/17 06:20 - Physical Exam Vitals and I&O: Vital Signs Temp 98.1 F 12/19/17 16:00 Pulse 90 12/19/17 19:11 Resp 18 12/19/17 19:11 BP 147/66 12/19/17 16:34 Pulse Ox 100 12/19/17 19:11 Intake & Output 12/19/17 12/19/17 12/20/17 06:59 18:59 06:59 Intake Total 900 Output Total 1000 Balance -100 Weight (lbs) 96.162 kg Intake: Intake, IV Amount 100 Piperacillin Sodium/ 100 Tazobact 3.375 gm In Sodium Chloride 0.9% 50 ml @ 100 mls/hr IV Q6HR [facility] Rx#:[id number] Tube Feeding 600 Other 200 Output: Urine 1000 Other: # Bowel Movements 1 Active Medications: Current Medications Acetaminophen (Tylenol 650mg Supp) 650 mg RC Q4H PRN PRN Reason: Fever > 101 Stop: 02/08/18 23:09 Albuterol/Ipratropium (Duoneb Neb) 3 ml HHN Q6HRT [facility] Stop: 02/09/18 00:59 Last Admin: 12/19/17 19:10 Dose: 3 ml Amlodipine Besylate (Norvasc) 5 mg GT DAILY [facility] Stop: 02/09/18 08:59 Last Admin: 12/19/17 09:30 Dose: 5 mg Atorvastatin Calcium (Lipitor) 20 mg GT HS [facility] Stop: 02/09/18 20:59 Last Admin: 12/18/17 20:54 Dose: 20 mg Carvedilol (Coreg) 3.125 mg GT BID [facility] Stop: 02/09/18 08:59 Last Admin: 12/19/17 16:34 Dose: 3.125 mg [place] Oil/[place] Balsam/Trypsin (Venelex) 1 appl TP DAILY [facility] Stop: 02/09/18 08:59 Last Admin: 12/19/17 09:31 Dose: 1 appl Dextrose (D50w) 50 ml IVP PRN PRN PRN Reason: Blood Glucose less than 70 Stop: 02/13/18 15:17 Dextrose (Glutose 40%) 18.75 gm PO PRN PRN PRN Reason: Blood Glucose less than 70 Stop: 02/13/18 15:17 Diltiazem HCl (Cardizem) 20 mg IVP Q4HR PRN PRN Reason: HR above 110 Stop: 02/08/18 23:09 Last Admin: 12/12/17 23:15 Dose: 20 mg Fluconazole (Diflucan) 100 mg PO DAILY [facility] Stop: 02/09/18 08:59 Last Admin: 12/19/17 09:30 Dose: 100 mg Folic Acid (Folate) 1 mg GT DAILY [facility] Stop: 02/10/18 08:59 Last Admin: 12/19/17 09:30 Dose: 1 mg Glucagon (Glucagen) 1 mg IM PRN PRN PRN Reason: Blood Glucose less than 70 Stop: 02/13/18 15:17 Dextrose (D5w) 1,000 mls @ 75 mls/hr IV .[id number] [facility] Stop: 02/13/18 14:34 Last Admin: 12/17/17 17:28 Dose: 75 mls/hr Insulin Aspart (Novolog Insulin Sliding Scale) 0 units SUBQ Q6HR [facility] PRN Reason: Protocol Stop: 02/09/18 00:00 Last Admin: 12/19/17 17:28 Dose: 2 units Insulin Detemir (Levemir Insulin) 14 units SUBQ BID [facility] PRN Reason: Protocol Stop: 02/09/18 08:59 Last Admin: 12/19/17 17:28 Dose: 14 units Miscellaneous (Probiotic Screen) 1 ea MC PRN PRN PRN Reason: PROTOCOL Stop: 02/10/18 17:05 Miscellaneous (Vte Chemical Prophylaxis Screen/ Admission) 1 ea MC PRN PRN PRN Reason: PROTOCOL Stop: 02/13/18 10:23 Morphine Sulfate (Morphine) 1 mg IVP Q4HR PRN PRN Reason: Pain (Severe) Stop: 02/10/18 23:46 Last Admin: 12/14/17 18:10 Dose: 1 mg Neomycin/Polymyxin/Bacitracin (Triple Antibiotic Pkt) 1 pkt TP DAILY [facility] Stop: 02/09/18 08:59 Last Admin: 12/19/17 09:31 Dose: 1 pkt Nystatin (Nystop) 0 units TP BID [facility] Stop: 02/13/18 20:29 Last Admin: 12/19/17 16:33 Dose: 100,000 units Pantoprazole Sodium (Protonix) 40 mg IVP BID [facility] Stop: 02/09/18 08:59 Last Admin: 12/19/17 16:32 Dose: 40 mg Potassium Chloride (Klor-Con) 20 meq PO DAILY [facility] Stop: 02/15/18 13:59 Last Admin: 12/19/17 09:30 Dose: 20 meq General: weak, demented HEENT: NC/AT, PERRLA, EOMI, anicteric sclerae, throat clear Neck: Supple, No JVD, No thyromegaly, +2 carotid pulse wo bruit, No LAD, + JVD Lungs: CTAB Cardiovascular: RRR, Normal S1, Normal S2, without murmur Abdomen: non-tender, non-distended Extremities: clear Neurological: no change - Procedures Procedures: Procedures Procedure Code Date BLOOD TRANSFUSION SERVICE 28090 12/10/17 EXCISION OF STOMACH, ENDO, DIAGN [id number] 11/15/17 INSERT TUNNELED CV CATH [id number] 11/15/17 INSERTION OF FEEDING DEVICE INTO STOMACH, ENDO [id number] 11/15/17 INSERTION OF INFUSION DEV INTO R SUBCLAV VEIN, PERC APPROACH [id number] 11/15/17 PERFORMANCE OF URINARY FILTRATION, <6 HRS/DAY [id number] 11/15/17 REMOVAL OF INFUSION DEVICE FROM UPPER VEIN, PERC APPROACH [id number] 11/15/17 TRANSFUSE NONAUT RED BLOOD CELLS IN PERIPH VEIN, PERC [id number] 12/10/17 ULTRASONOGRAPHY OF RIGHT SUBCLAVIAN VEIN, GUIDANCE [id number] 11/15/17 Internal Medicine Assmt/Plan - Assessment Assessment: 1.ASPIRATION PNEUMONIA. 2.SEPSIS. 3.ANEMIA. 4.DEHYDRATION 5.HEMATUREA - Plan Plan: CONTINUE ON CURRENT MEDICATION AND DIET.CBC AND CMP IN AM. Nutritional Asmnt/Malnutr-PDOC - Dietary Evaluation Malnutrition Findings (Please click <Entered> for more info): Nutritional Asmnt/Malnutrition Start: 12/13/17 16: 00 Text: Status: Complete Freq: Document 12/13/17 16:00 COSMO (Rec: 12/13/17 16:22 COSMO [email or web address]) Nutritional Asmnt/Malnutrition Patient General Information Nutritional Screening High Risk Consult Diagnosis sepsis, PNA, rsepiratory failure, PENNY Pertinent Medical Hx/Surgical Hx DM, HTN, dementia, psychotic dysphagia Subjective Information Pt seen resting in bed at time of visit. TF was off at this time. Spoke with RN, RN reported pt tolerated TF well. Current Diet Order/ Nutrition Support novosource 50ml x 20hr, providing 2000kcal, 91g protein Pertinent Medications D5w, folate, glucagen, novolog , levemir, triple antibiotic pkt, protonix, piperacillin Pertinent Labs 2/5 Na 158, K 3.6, Cl 127, BUN 65, Cr 1.3, Glucose 240, POC 170-249 Nutritional Hx/Data Height 1.85 m Height (Calculated Centimeters) 185.4 Current Weight (lbs) 68.039 kg Weight (Calculated Kilograms) 68.0 Weight (Calculated Grams) 55535.9 [place] Body Weight 184 % [place] Body Weight 82 Body Mass Index (BMI) 19.8 Weight Status Approriate GI Symptoms GI Symptoms None Last BM 2/5 Difficult in: None Skin Integrity/Comment: decubitus ulceration to right buttocks, bruise to RUE, maceration to scrotum Estimated Nutritional Goals BEE in Kcals: Using Current wt Calories/Kcals/Kg 27-32 Kcals Calculated 7510-2827 Protein: Using Current wt Protein g/k.2-1.4 monitor renal labs Protein Calculated 81-95 Fluid: ml 1836-2176ml (1ml/kcal) Nutritional Problem 1. Problem Problem altered nutrition related lab values Etiology dx of PENNY, hx of DM Signs/Symptoms: Na 158, BUN 65, Glucose 240, POC 170-249 Malnutrition Alert Protein-Calorie Malnutrition N/A Is there a minimum of two criteria No selected? Query Text:Check all the applicable criteria. A minimum of two criteria are recommended for diagnosis of either severe or non-severe malnutrition. Intervention/Recommendation Comments 1. Continue with current TF regimen. It provides 2000kcal, 91g protein, meeting 100% of nutritional needs 2. Monitor TF rate, tolerance, wt weekly, skin integrity and labs 3. F/U as moderate risk in 3-5 days, 12/16-2 Expected Outcomes/Goals Expected Outcomes/Goals 1. Pt to meet at least 75% of nutritional needs via nutrition support with tolerance 2. Wt stability, skin to remain intact, labs to approach WNL.
[2017-12-19] MEDS: Atorvastatin Calcium 10 MG TAB GT SCH (21:29)
[2017-12-20] MEDS: INSULIN ASPART SLIDING SCALE 100 UNITS/ML UNIT SUBQ SCH ×4 (00:32→19:29)
[2017-12-20] MEDS: Albuterol/Ipratropium Neb 3 ML AERS HHN SCH ×3 (01:01→12:11)
[2017-12-20 07:07] LABS: % BASOPHILS 0.5 % (0.0-2.0); % EOSINOPHILS 0.7 % (0.0-5.0); % LYMPHOCYTES 13.3 % (20.0-50.0); % MONOCYTES 6.2 % (2.0-10.0); % NEUTROPHILS 79.3 % (40.0-80.0); BASOPHILE ABSOLUTE 0.1 Th/cumm (0-0.2); EOSINOPHILE ABSOLUTE 0.1 Th/cmm (0.1-0.4); HEMATOCRIT 26.1 % (41.0-60); HEMOGLOBIN 9.1 gm/dL (12-16); LYMPHOCYTE ABSOLUTE 1.4 Th/cmm (1.5-3.0); MEAN CELL VOLUME 98.7 fl (80-99); MEAN CORPUSCULAR HEMOGLOBIN 34.6 pg (27.0-31.0); MEAN PLATELET VOLUME 9.9 fl; MONOCYTE ABSOLUTE 0.7 Th/cmm (0.3-1.0); NEUTROPHILE ABSOLUTE 8.2 Th/cmm (1.8-8.0); RED BLOOD COUNT 2.64 Mil/cmm (3.80-5.80); RED CELL DISTRIBUTION WIDTH 15.7 % (11.5-20.0)
[2017-12-20 07:15] LABS: ANION GAP 8.9 (7.0-16.0); BUN - UREA NITROGEN 24 mg/dL (7-25); CALCIUM SERUM 8.8 mg/dL (8.6-10.3); CARBON DIOXIDE 26.6 mEq/L (21.0-31.0); CHLORIDE 116 mEq/L (98-107); GLUCOSE 157 mg/dL (70-105); PLATELET COUNT 290 Th/cmm (150-400); POTASSIUM SERUM 3.5 mEq/L (3.5-5.1); SODIUM SERUM 148 mEq/L (136-145); WHITE BLOOD COUNT 10.5 Th/cmm (4.8-10.8)
[2017-12-20] MEDS: Triple Antibiotic 0.94 gm Pkt TP SCH (08:56)
[2017-12-20] MEDS: NYSTATIN 100000 UNITS/GM POWD TP SCH ×2 (08:56→16:32)
[2017-12-20] MEDS: Potassium Chloride 20 mEq ER Tab PO SCH (08:57)
[2017-12-20] MEDS: Venelex 60gm Tube TP SCH (08:58)
[2017-12-20] MEDS: Insulin Detemir 100 units/mL 10mL Vial SUBQ SCH ×2 (09:13→16:39)
--- NOTE | 2017-12-20 09:49 | General Progress Note ---
Subjective - Review of Systems Service Date: 12/20/17 Objective - Results Result Diagrams: 12/20/17 06:00 12/20/17 06:00 Recent Labs: Laboratory Last Values WBC 10.5 Th/cmm (4.8-10.8) D 12/20/17 06:00 Corrected WBC (auto) 4.4 Th/cmm 12/12/17 23:59 RBC 2.64 Mil/cmm (3.80-5.80) L 12/20/17 06:00 Hgb 9.1 gm/dL (12-16) L 12/20/17 06:00 Hct 26.1 % (41.0-60) L 12/20/17 06:00 MCV 98.7 fl (80-99) 12/20/17 06:00 MCH 34.6 pg (27.0-31.0) H 12/20/17 06:00 MCHC Differential 35.0 pg (28.0-36.0) 12/20/17 06:00 RDW 15.7 % (11.5-20.0) 12/20/17 06:00 Plt Count 290 Th/cmm (150-400) D 12/20/17 06:00 MPV 9.9 fl 12/20/17 06:00 Neutrophils % 79.3 % (40.0-80.0) 12/20/17 06:00 Band Neutrophils % 10 % (0-10) 12/12/17 23:59 Lymphocytes % 13.3 % (20.0-50.0) L 12/20/17 06:00 Monocytes % 6.2 % (2.0-10.0) 12/20/17 06:00 Eosinophils % 0.7 % (0.0-5.0) 12/20/17 06:00 Basophils % 0.5 % (0.0-2.0) 12/20/17 06:00 Neutrophils (Manual) 60 % (40-80) 12/12/17 23:59 Lymphocytes 20 % (20-50) 12/12/17 23:59 Monocytes 6 % (2-10) 12/12/17 23:59 Eosinophils 4 % (0-5) 12/12/17 23:59 Nucleated RBCs 6.0 % (0-0) H 12/12/17 23:59 Platelet Estimate SLIGHT DECREASED (NORMAL) 12/12/17 23:59 Platelet Morphology GIANT PLATELETS SEEN (NORMAL) 12/11/17 17:58 Polychromasia 1+ 12/11/17 17:58 Anisocytosis 1+ 12/11/17 17:58 RBC Morph Micro Appear ABNORMAL (NORMAL) 12/11/17 17:58 PT 11.9 SECONDS (9.5-11.5) H 12/15/17 06:20 INR 1.13 (0.5-1.4) 12/15/17 06:20 PTT (Actin FS) 26.9 SECONDS (26.0-38.0) 12/15/17 06:20 Specimen Source Arterial 12/10/17 14:05 Sample Site Left Radial 12/10/17 14:05 pH 7.51 (7.35-7.45) H 12/10/17 14:05 pCO2 36.0 mmHg (35.0-45.0) 12/10/17 14:05 pO2 102.0 mmHg (80.0-100.0) H 12/10/17 14:05 HCO3 29.2 mEq/L (20.0-26.0) H 12/10/17 14:05 Base Excess 5.5 mEq/L (-3.0-3.0) H 12/10/17 14:05 O2 Saturation 98.0 % (92.0-100.0) 12/10/17 14:05 Mario Test YES 12/10/17 14:05 Vent Rate NA 12/10/17 14:05 Inspired O2 50 12/10/17 14:05 Tidal Volume NA 12/10/17 14:05 PEEP NA 12/10/17 14:05 Pressure (ins/psv/peep) NA 12/10/17 14:05 Critical Value E.PICHARDO 12/10/17 14:05 Sodium 148 mEq/L (136-145) H 12/20/17 06:00 Potassium 3.5 mEq/L (3.5-5.1) 12/20/17 06:00 Chloride 116 mEq/L (98-107) H 12/20/17 06:00 Carbon Dioxide 26.6 mEq/L (21.0-31.0) 12/20/17 06:00 Anion Gap 8.9 (7.0-16.0) 12/20/17 06:00 BUN 24 mg/dL (7-25) 12/20/17 06:00 Creatinine 1.0 mg/dL (0.7-1.3) 12/20/17 06:00 Est GFR ( Amer) TNP 12/20/17 06:00 Est GFR (Non-Af Amer) TNP 12/20/17 06:00 BUN/Creatinine Ratio 24.0 12/20/17 06:00 Glucose 157 mg/dL (70-105) H 12/20/17 06:00 POC Glucose 184 MG/DL (70 - 105) H 12/20/17 09:11 Hemoglobin A1c % 6.4 % (4.0-6.0) H 12/11/17 05:30 Whole Bld Lactic Acid 1.12 mmol/L (0.60-1.99) 12/11/17 07:37 Calcium 8.8 mg/dL (8.6-10.3) 12/20/17 06:00 Phosphorus 2.7 mg/dL (2.5-5.0) 12/16/17 06:50 Magnesium 2.0 mg/dL (1.9-2.7) 12/17/17 05:50 Iron 26 ug/dL (38-169) L 12/11/17 05:30 TIBC 161 ug/dL (250-450) L 12/11/17 05:30 Iron Saturation 16 % (15-55) 12/11/17 05:30 Unsaturated IBC 135 ug/dL (111-343) 12/11/17 05:30 Ferritin 513 ng/mL (30-400) H 12/11/17 05:30 Total Bilirubin 0.3 mg/dL (0.3-1.0) 12/19/17 05:53 AST 74 U/L (13-39) H 12/19/17 05:53 ALT 89 U/L (7-52) H 12/19/17 05:53 Alkaline Phosphatase 151 U/L (34-104) H 12/19/17 05:53 Troponin I 0.44 ng/mL (0.01-0.05) H* D 12/10/17 14:06 B-Natriuretic Peptide 532.0 pg/mL (5.0-100.0) H 12/10/17 14:06 Total Protein 4.7 gm/dL (6.0-8.3) L 12/19/17 05:53 Albumin 2.1 gm/dL (4.2-5.5) L 12/19/17 05:53 Globulin 2.6 gm/dL 12/19/17 05:53 Albumin/Globulin Ratio 0.8 (1.0-1.8) L 12/19/17 05:53 Vitamin B12 1620 pg/mL (232-1245) H 12/11/17 05:30 Folic Acid >20.0 ng/mL (>3.0) 12/11/17 05:30 Urine Source [place] 12/15/17 16:30 Urine Color YELLOW 12/15/17 16:30 Urine Clarity CLEAR (CLEAR) 12/15/17 16:30 Urine pH 6.0 (4.6 - 8.0) 12/15/17 16:30 Ur Specific [place] 1.015 (1.005-1.030) 12/15/17 16:30 Urine Protein 30 mg/dL (NEGATIVE) H 12/15/17 16:30 Urine Glucose (UA) NEGATIVE mg/dL (NEGATIVE) 12/15/17 16:30 Urine Ketones NEGATIVE mg/dL (NEGATIVE) 12/15/17 16:30 Urine Blood LARGE (NEGATIVE) H 12/15/17 16:30 Urine Nitrate NEGATIVE (NEGATIVE) 12/15/17 16:30 Urine Bilirubin NEGATIVE (NEGATIVE) 12/15/17 16:30 Urine Urobilinogen 0.2 E.U./dL (0.2 - 1.0) 12/15/17 16:30 Ur Leukocyte Esterase NEGATIVE (NEGATIVE) 12/15/17 16:30 Urine RBC 2-5 /hpf (0-5) H 12/15/17 16:30 Urine WBC 2-5 /hpf (0-5) 12/15/17 16:30 Ur Epithelial Cells RARE /lpf (FEW) 12/15/17 16:30 Urine Bacteria OCCASIONAL /hpf (NONE SEEN) 12/15/17 16:30 Stool Occult Blood POSITIVE (NEGATIVE) H 12/13/17 13:20 Helicobacter pylori Ab NEGATIVE (NEGATIVE) 12/16/17 14:40 Blood Type A POSITIVE 12/15/17 06:20 Antibody Screen NEGATIVE 12/15/17 06:20 Crossmatch See Detail 12/15/17 06:20 - Physical Exam Vitals and I&O: Vital Signs Temp 99.2 F 12/20/17 04:00 Pulse 104 12/20/17 08:58 Resp 14 12/20/17 06:30 BP 158/69 12/20/17 08:58 Pulse Ox 99 12/20/17 06:30 Intake & Output 12/19/17 12/20/17 12/20/17 18:59 06:59 18:59 Intake Total 1300 Output Total 1225 Balance 75 Weight (lbs) 96.162 kg Intake: Tube Feeding 500 TPN/PPN 400 Other 400 Output: Urine 1225 Other: # Bowel Movements 1 Active Medications: Current Medications Acetaminophen (Tylenol 650mg Supp) 650 mg RC Q4H PRN PRN Reason: Fever > 101 Stop: 02/08/18 23:09 Albuterol/Ipratropium (Duoneb Neb) 3 ml HHN Q6HRT RYAN Stop: 02/09/18 00:59 Last Admin: 12/20/17 06:30 Dose: 3 ml Amlodipine Besylate (Norvasc) 5 mg GT DAILY RYAN Stop: 02/09/18 08:59 Last Admin: 12/20/17 08:58 Dose: 5 mg Atorvastatin Calcium (Lipitor) 20 mg GT HS RYAN Stop: 02/09/18 20:59 Last Admin: 12/19/17 21:29 Dose: 20 mg Carvedilol (Coreg) 3.125 mg GT BID RYAN Stop: 02/09/18 08:59 Last Admin: 12/20/17 08:57 Dose: 3.125 mg [place] Oil/[place]ian Balsam/Trypsin (Venelex) 1 appl TP DAILY RYAN Stop: 02/09/18 08:59 Last Admin: 12/20/17 08:58 Dose: 1 appl Dextrose (D50w) 50 ml IVP PRN PRN PRN Reason: Blood Glucose less than 70 Stop: 02/13/18 15:17 Dextrose (Glutose 40%) 18.75 gm PO PRN PRN PRN Reason: Blood Glucose less than 70 Stop: 02/13/18 15:17 Diltiazem HCl (Cardizem) 20 mg IVP Q4HR PRN PRN Reason: HR above 110 Stop: 02/08/18 23:09 Last Admin: 12/12/17 23:15 Dose: 20 mg Fluconazole (Diflucan) 100 mg PO DAILY [facility] Stop: 02/09/18 08:59 Last Admin: 12/20/17 08:57 Dose: 100 mg Folic Acid (Folate) 1 mg GT DAILY [facility] Stop: 02/10/18 08:59 Last Admin: 12/20/17 08:58 Dose: 1 mg Glucagon (Glucagen) 1 mg IM PRN PRN PRN Reason: Blood Glucose less than 70 Stop: 02/13/18 15:17 Dextrose (D5w) 1,000 mls @ 75 mls/hr IV .[id number] [facility] Stop: 02/13/18 14:34 Last Admin: 12/17/17 17:28 Dose: 75 mls/hr Insulin Aspart (Novolog Insulin Sliding Scale) 0 units SUBQ Q6HR RYAN PRN Reason: Protocol Stop: 02/09/18 00:00 Last Admin: 12/20/17 06:02 Dose: Not Given Insulin Detemir (Levemir Insulin) 14 units SUBQ BID RYAN PRN Reason: Protocol Stop: 02/09/18 08:59 Last Admin: 12/20/17 09:13 Dose: 14 units Miscellaneous (Probiotic Screen) 1 ea PRN PRN PRN Reason: PROTOCOL Stop: 02/10/18 17:05 Miscellaneous (Vte Chemical Prophylaxis Screen/ Admission) 1 ea PRN PRN PRN Reason: PROTOCOL Stop: 02/13/18 10:23 Morphine Sulfate (Morphine) 1 mg IVP Q4HR PRN PRN Reason: Pain (Severe) Stop: 02/10/18 23:46 Last Admin: 12/14/17 18:10 Dose: 1 mg Neomycin/Polymyxin/Bacitracin (Triple Antibiotic Pkt) 1 pkt TP DAILY [facility] Stop: 02/09/18 08:59 Last Admin: 12/20/17 08:56 Dose: 1 pkt Nystatin (Nystop) 0 units TP BID [facility] Stop: 02/13/18 20:29 Last Admin: 12/20/17 08:56 Dose: 100,000 units Pantoprazole Sodium (Protonix) 40 mg IVP BID [facility] Stop: 02/09/18 08:59 Last Admin: 12/20/17 08:56 Dose: 40 mg Potassium Chloride (Klor-Con) 20 meq PO DAILY [facility] Stop: 02/15/18 13:59 Last Admin: 12/20/17 08:57 Dose: 20 meq General: No acute distress HEENT: PERRLA, EOMI, Mucous membr. moist/pink Neck: Supple, +2 carotid pulse wo bruit Cardiovascular: Regular rate, Normal S1, Normal S2 Lungs: Other (decreased BS) Abdomen: Bowel sounds, Soft Extremities: Other (upper ext), no Edema Neurological: Sensation intact Skin: no Rash Psych/Mental Status: Mood NL - Procedures Procedures: Procedures Procedure Code Date BLOOD TRANSFUSION SERVICE 84159 12/10/17 EXCISION OF STOMACH, ENDO, DIAGN [id number] 11/15/17 INSERT TUNNELED CV CATH [id number] 11/15/17 INSERTION OF FEEDING DEVICE INTO STOMACH, ENDO [id number] 11/15/17 INSERTION OF INFUSION DEV INTO R SUBCLAV VEIN, PERC APPROACH [id number] 11/15/17 PERFORMANCE OF URINARY FILTRATION, <6 HRS/DAY [id number] 11/15/17 REMOVAL OF INFUSION DEVICE FROM UPPER VEIN, PERC APPROACH [id number] 11/15/17 TRANSFUSE NONAUT RED BLOOD CELLS IN PERIPH VEIN, PERC 55962X8 12/10/17 ULTRASONOGRAPHY OF RIGHT SUBCLAVIAN VEIN, GUIDANCE [id number] 11/15/17 Assessment/Plan - Assessment Assessment: * Anemia gauthier is positive for occult blood; otherwise no evidence of deficiency * Thrombocytopenia better hgb stable today; no transfusion needed monitor hgb Continue gastric tube feeding Nutritional Asmnt/Malnutr-PDOC - Dietary Evaluation Malnutrition Findings (Please click <Entered> for more info): Nutritional Asmnt/Malnutrition Start: 12/13/17 16: 00 Text: Status: Complete Freq: Document 12/13/17 16:00 [facility] ([facility] 12[facility]13[facility]17 [facility] Nutritional Asmnt/Malnutrition Patient General Information Nutritional Screening High Risk Consult Diagnosis sepsis, PNA, rsepiratory failure, PENNY Pertinent Medical Hx/Surgical Hx DM, HTN, dementia, psychotic dysphagia Subjective Information Pt seen resting in bed at time of visit. TF was off at this time. Spoke with RN, RN reported pt tolerated TF well. Current Diet Order/ Nutrition Support novosource 50ml x 20hr, providing 2000kcal, 91g protein Pertinent Medications D5w, folate, glucagen, novolog , levemir, triple antibiotic pkt, protonix, piperacillin Pertinent Labs 2/5 Na 158, K 3.6, Cl 127, BUN 65, Cr 1.3, Glucose 240, POC 170-249 Nutritional Hx/Data Height 1.85 m Height (Calculated Centimeters) 185.4 Current Weight (lbs) 68.039 kg Weight (Calculated Kilograms) 68.0 Weight (Calculated Grams) 22578.9 [place] Body Weight 184 % [place] Body Weight 82 Body Mass Index (BMI) 19.8 Weight Status Approriate GI Symptoms GI Symptoms None Last BM 2/5 Difficult in: None Skin Integrity/Comment: decubitus ulceration to right buttocks, bruise to RUE, maceration to scrotum Estimated Nutritional Goals BEE in Kcals: Using Current wt Calories/Kcals/Kg 27-32 Kcals Calculated 4249-2187 Protein: Using Current wt Protein g/k.2-1.4 monitor renal labs Protein Calculated 81-95 Fluid: ml 1836-2176ml (1ml/kcal) Nutritional Problem 1. Problem Problem altered nutrition related lab values Etiology dx of PENNY, hx of DM Signs/Symptoms: Na 158, BUN 65, Glucose 240, POC 170-249 Malnutrition Alert Protein-Calorie Malnutrition N/A Is there a minimum of two criteria No selected? Query Text:Check all the applicable criteria. A minimum of two criteria are recommended for diagnosis of either severe or non-severe malnutrition. Intervention/Recommendation Comments 1. Continue with current TF regimen. It provides 2000kcal, 91g protein, meeting 100% of nutritional needs 2. Monitor TF rate, tolerance, wt weekly, skin integrity and labs 3. F/U as moderate risk in 3-5 days, 12/16-12/18 Expected Outcomes/Goals Expected Outcomes/Goals 1. Pt to meet at least 75% of nutritional needs via nutrition support with tolerance 2. Wt stability, skin to remain intact, labs to approach WNL.
[2017-12-20] MEDS ORDERED: Dextrose 5% 1,000 ML IV SCH (13:16)
--- NOTE | 2017-12-20 13:21 | General Progress Note ---
Subjective - Review of Systems Service Date: 12/20/17 Subjective: sleeping, comfortable Objective - Results Result Diagrams: 12/20/17 06:00 12/20/17 06:00 Recent Labs: Laboratory Last Values WBC 10.5 Th/cmm (4.8-10.8) D 12/20/17 06:00 Corrected WBC (auto) 4.4 Th/cmm 12/12/17 23:59 RBC 2.64 Mil/cmm (3.80-5.80) L 12/20/17 06:00 Hgb 9.1 gm/dL (12-16) L 12/20/17 06:00 Hct 26.1 % (41.0-60) L 12/20/17 06:00 MCV 98.7 fl (80-99) 12/20/17 06:00 MCH 34.6 pg (27.0-31.0) H 12/20/17 06:00 MCHC Differential 35.0 pg (28.0-36.0) 12/20/17 06:00 RDW 15.7 % (11.5-20.0) 12/20/17 06:00 Plt Count 290 Th/cmm (150-400) D 12/20/17 06:00 MPV 9.9 fl 12/20/17 06:00 Neutrophils % 79.3 % (40.0-80.0) 12/20/17 06:00 Band Neutrophils % 10 % (0-10) 12/12/17 23:59 Lymphocytes % 13.3 % (20.0-50.0) L 12/20/17 06:00 Monocytes % 6.2 % (2.0-10.0) 12/20/17 06:00 Eosinophils % 0.7 % (0.0-5.0) 12/20/17 06:00 Basophils % 0.5 % (0.0-2.0) 12/20/17 06:00 Neutrophils (Manual) 60 % (40-80) 12/12/17 23:59 Lymphocytes 20 % (20-50) 12/12/17 23:59 Monocytes 6 % (2-10) 12/12/17 23:59 Eosinophils 4 % (0-5) 12/12/17 23:59 Nucleated RBCs 6.0 % (0-0) H 12/12/17 23:59 Platelet Estimate SLIGHT DECREASED (NORMAL) 12/12/17 23:59 Platelet Morphology GIANT PLATELETS SEEN (NORMAL) 12/11/17 17:58 Polychromasia 1+ 12/11/17 17:58 Anisocytosis 1+ 12/11/17 17:58 RBC Morph Micro Appear ABNORMAL (NORMAL) 12/11/17 17:58 PT 11.9 SECONDS (9.5-11.5) H 12/15/17 06:20 INR 1.13 (0.5-1.4) 12/15/17 06:20 PTT (Actin FS) 26.9 SECONDS (26.0-38.0) 12/15/17 06:20 Specimen Source Arterial 12/10/17 14:05 Sample Site Left Radial 12/10/17 14:05 pH 7.51 (7.35-7.45) H 12/10/17 14:05 pCO2 36.0 mmHg (35.0-45.0) 12/10/17 14:05 pO2 102.0 mmHg (80.0-100.0) H 12/10/17 14:05 HCO3 29.2 mEq/L (20.0-26.0) H 12/10/17 14:05 Base Excess 5.5 mEq/L (-3.0-3.0) H 12/10/17 14:05 O2 Saturation 98.0 % (92.0-100.0) 12/10/17 14:05 Mario Test YES 12/10/17 14:05 Vent Rate NA 12/10/17 14:05 Inspired O2 50 12/10/17 14:05 Tidal Volume NA 12/10/17 14:05 PEEP NA 12/10/17 14:05 Pressure (ins/psv/peep) NA 12/10/17 14:05 Critical Value E.PICHARDO 12/10/17 14:05 Sodium 148 mEq/L (136-145) H 12/20/17 06:00 Potassium 3.5 mEq/L (3.5-5.1) 12/20/17 06:00 Chloride 116 mEq/L (98-107) H 12/20/17 06:00 Carbon Dioxide 26.6 mEq/L (21.0-31.0) 12/20/17 06:00 Anion Gap 8.9 (7.0-16.0) 12/20/17 06:00 BUN 24 mg/dL (7-25) 12/20/17 06:00 Creatinine 1.0 mg/dL (0.7-1.3) 12/20/17 06:00 Est GFR ( Amer) TNP 12/20/17 06:00 Est GFR (Non-Af Amer) TNP 12/20/17 06:00 BUN/Creatinine Ratio 24.0 12/20/17 06:00 Glucose 157 mg/dL (70-105) H 12/20/17 06:00 POC Glucose 152 MG/DL (70 - 105) H 12/20/17 12:54 Hemoglobin A1c % 6.4 % (4.0-6.0) H 12/11/17 05:30 Whole Bld Lactic Acid 1.12 mmol/L (0.60-1.99) 12/11/17 07:37 Calcium 8.8 mg/dL (8.6-10.3) 12/20/17 06:00 Phosphorus 2.7 mg/dL (2.5-5.0) 12/16/17 06:50 Magnesium 2.0 mg/dL (1.9-2.7) 12/17/17 05:50 Iron 26 ug/dL (38-169) L 12/11/17 05:30 TIBC 161 ug/dL (250-450) L 12/11/17 05:30 Iron Saturation 16 % (15-55) 12/11/17 05:30 Unsaturated IBC 135 ug/dL (111-343) 12/11/17 05:30 Ferritin 513 ng/mL (30-400) H 12/11/17 05:30 Total Bilirubin 0.3 mg/dL (0.3-1.0) 12/19/17 05:53 AST 74 U/L (13-39) H 12/19/17 05:53 ALT 89 U/L (7-52) H 12/19/17 05:53 Alkaline Phosphatase 151 U/L (34-104) H 12/19/17 05:53 Troponin I 0.44 ng/mL (0.01-0.05) H* D 12/10/17 14:06 B-Natriuretic Peptide 532.0 pg/mL (5.0-100.0) H 12/10/17 14:06 Total Protein 4.7 gm/dL (6.0-8.3) L 12/19/17 05:53 Albumin 2.1 gm/dL (4.2-5.5) L 12/19/17 05:53 Globulin 2.6 gm/dL 12/19/17 05:53 Albumin/Globulin Ratio 0.8 (1.0-1.8) L 12/19/17 05:53 Vitamin B12 1620 pg/mL (232-1245) H 12/11/17 05:30 Folic Acid >20.0 ng/mL (>3.0) 12/11/17 05:30 Urine Source [place] 12/15/17 16:30 Urine Color YELLOW 12/15/17 16:30 Urine Clarity CLEAR (CLEAR) 12/15/17 16:30 Urine pH 6.0 (4.6 - 8.0) 12/15/17 16:30 Ur Specific [place] 1.015 (1.005-1.030) 12/15/17 16:30 Urine Protein 30 mg/dL (NEGATIVE) H 12/15/17 16:30 Urine Glucose (UA) NEGATIVE mg/dL (NEGATIVE) 12/15/17 16:30 Urine Ketones NEGATIVE mg/dL (NEGATIVE) 12/15/17 16:30 Urine Blood LARGE (NEGATIVE) H 12/15/17 16:30 Urine Nitrate NEGATIVE (NEGATIVE) 12/15/17 16:30 Urine Bilirubin NEGATIVE (NEGATIVE) 12/15/17 16:30 Urine Urobilinogen 0.2 E.U./dL (0.2 - 1.0) 12/15/17 16:30 Ur Leukocyte Esterase NEGATIVE (NEGATIVE) 12/15/17 16:30 Urine RBC 2-5 /hpf (0-5) H 12/15/17 16:30 Urine WBC 2-5 /hpf (0-5) 12/15/17 16:30 Ur Epithelial Cells RARE /lpf (FEW) 12/15/17 16:30 Urine Bacteria OCCASIONAL /hpf (NONE SEEN) 12/15/17 16:30 Stool Occult Blood POSITIVE (NEGATIVE) H 12/13/17 13:20 Helicobacter pylori Ab NEGATIVE (NEGATIVE) 12/16/17 14:40 Blood Type A POSITIVE 12/15/17 06:20 Antibody Screen NEGATIVE 12/15/17 06:20 Crossmatch See Detail 12/15/17 06:20 - Physical Exam Vitals and I&O: Vital Signs Temp 96.8 F 12/20/17 08:00 Pulse 89 12/20/17 12:13 Resp 12 12/20/17 12:13 BP 158/69 12/20/17 08:58 Pulse Ox 99 12/20/17 12:13 Intake & Output 12/19/17 12/20/17 12/20/17 18:59 06:59 18:59 Intake Total 1300 Output Total 1225 Balance 75 Weight (lbs) 96.162 kg Intake: Tube Feeding 500 TPN/PPN 400 Other 400 Output: Urine 1225 Other: # Bowel Movements 1 Active Medications: Current Medications Acetaminophen (Tylenol 650mg Supp) 650 mg RC Q4H PRN PRN Reason: Fever > 101 Stop: 02/08/18 23:09 Albuterol/Ipratropium (Duoneb Neb) 3 ml HHN Q6HRT RYAN Stop: 02/09/18 00:59 Last Admin: 12/20/17 12:11 Dose: 3 ml Amlodipine Besylate (Norvasc) 5 mg GT DAILY RYAN Stop: 02/09/18 08:59 Last Admin: 12/20/17 08:58 Dose: 5 mg Atorvastatin Calcium (Lipitor) 20 mg GT HS RYAN Stop: 02/09/18 20:59 Last Admin: 12/19/17 21:29 Dose: 20 mg Carvedilol (Coreg) 3.125 mg GT BID RYAN Stop: 02/09/18 08:59 Last Admin: 12/20/17 08:57 Dose: 3.125 mg [place] Oil/Cambodian Balsam/Trypsin (Venelex) 1 appl TP DAILY RYAN Stop: 02/09/18 08:59 Last Admin: 12/20/17 08:58 Dose: 1 appl Dextrose (D50w) 50 ml IVP PRN PRN PRN Reason: Blood Glucose less than 70 Stop: 02/13/18 15:17 Dextrose (Glutose 40%) 18.75 gm PO PRN PRN PRN Reason: Blood Glucose less than 70 Stop: 02/13/18 15:17 Diltiazem HCl (Cardizem) 20 mg IVP Q4HR PRN PRN Reason: HR above 110 Stop: 02/08/18 23:09 Last Admin: 12/12/17 23:15 Dose: 20 mg Fluconazole (Diflucan) 100 mg PO DAILY [facility] Stop: 02/09/18 08:59 Last Admin: 12/20/17 08:57 Dose: 100 mg Folic Acid (Folate) 1 mg GT DAILY RYAN Stop: 02/10/18 08:59 Last Admin: 12/20/17 08:58 Dose: 1 mg Glucagon (Glucagen) 1 mg IM PRN PRN PRN Reason: Blood Glucose less than 70 Stop: 02/13/18 15:17 Dextrose (D5w) 1,000 mls @ 75 mls/hr IV .[id number] [facility] Stop: 02/18/18 13:15 Insulin Aspart (Novolog Insulin Sliding Scale) 0 units SUBQ Q6HR RYAN PRN Reason: Protocol Stop: 02/09/18 00:00 Last Admin: 12/20/17 12:55 Dose: Not Given Insulin Detemir (Levemir Insulin) 14 units SUBQ BID RYAN PRN Reason: Protocol Stop: 02/09/18 08:59 Last Admin: 12/20/17 09:13 Dose: 14 units Miscellaneous (Probiotic Screen) 1 ea PRN PRN PRN Reason: PROTOCOL Stop: 02/10/18 17:05 Miscellaneous (Vte Chemical Prophylaxis Screen/ Admission) 1 ea PRN PRN PRN Reason: PROTOCOL Stop: 02/13/18 10:23 Morphine Sulfate (Morphine) 1 mg IVP Q4HR PRN PRN Reason: Pain (Severe) Stop: 02/10/18 23:46 Last Admin: 12/14/17 18:10 Dose: 1 mg Neomycin/Polymyxin/Bacitracin (Triple Antibiotic Pkt) 1 pkt TP DAILY RYAN Stop: 02/09/18 08:59 Last Admin: 12/20/17 08:56 Dose: 1 pkt Nystatin (Nystop) 0 units TP BID [facility] Stop: 02/13/18 20:29 Last Admin: 12/20/17 08:56 Dose: 100,000 units Pantoprazole Sodium (Protonix) 40 mg IVP BID [facility] Stop: 02/09/18 08:59 Last Admin: 12/20/17 08:56 Dose: 40 mg Potassium Chloride (Klor-Con) 20 meq PO DAILY [facility] Stop: 02/15/18 13:59 Last Admin: 12/20/17 08:57 Dose: 20 meq General: No acute distress HEENT: PERRLA, EOMI, Mucous membr. moist/pink Neck: Supple, +2 carotid pulse wo bruit Cardiovascular: Regular rate, Normal S1, Normal S2 Lungs: Other (decreased BS) Abdomen: Bowel sounds, Soft Extremities: Other (upper ext), no Edema Neurological: Sensation intact Skin: no Rash Psych/Mental Status: Mood NL - Procedures Procedures: Procedures Procedure Code Date BLOOD TRANSFUSION SERVICE 07820 12/10/17 EXCISION OF STOMACH, ENDO, DIAGN [id number] 11/15/17 INSERT TUNNELED CV CATH [id number] 11/15/17 INSERTION OF FEEDING DEVICE INTO STOMACH, ENDO [id number] 11/15/17 INSERTION OF INFUSION DEV INTO R SUBCLAV VEIN, PERC APPROACH [id number] 11/15/17 PERFORMANCE OF URINARY FILTRATION, <6 HRS/DAY [id number] 11/15/17 REMOVAL OF INFUSION DEVICE FROM UPPER VEIN, PERC APPROACH [id number] 11/15/17 TRANSFUSE NONAUT RED BLOOD CELLS IN PERIPH VEIN, PERC 46251M2 12/10/17 ULTRASONOGRAPHY OF RIGHT SUBCLAVIAN VEIN, GUIDANCE [id number] 11/15/17 Assessment/Plan - Assessment Assessment: PENNY Hypernatremia, Hypokalemia CVA Type 2 DM Ess Htn Thrombocytopenia Severe Anemia B/L Scrotal Hydrocele Left HAP - Plan Plan: Lab - Result Diagrams 12/13/17 07:45 12/13/17 07:45 Current Medications Acetaminophen (Tylenol 650mg Supp) 650 mg RC Q4H PRN PRN Reason: Fever > 101 Stop: 02/08/18 23:09 Albuterol/Ipratropium (Duoneb Neb) 3 ml HHN Q6HRT RYAN Stop: 02/09/18 00:59 Last Admin: 12/13/17 12:42 Dose: 3 ml Amlodipine Besylate (Norvasc) 5 mg GT DAILY RYAN Stop: 02/09/18 08:59 Last Admin: 12/13/17 08:52 Dose: 5 mg Atorvastatin Calcium (Lipitor) 20 mg GT HS RYAN Stop: 02/09/18 20:59 Last Admin: 12/12/17 21:41 Dose: 20 mg Carvedilol (Coreg) 3.125 mg GT BID RYAN Stop: 02/09/18 08:59 Last Admin: 12/13/17 08:52 Dose: 3.125 mg [place] Oil/Cambodian Balsam/Trypsin (Venelex) 1 appl TP DAILY [facility] Stop: 02/09/18 08:59 Last Admin: 12/13/17 08:55 Dose: 1 appl Diltiazem HCl (Cardizem) 20 mg IVP Q4HR PRN PRN Reason: HR above 110 Stop: 02/08/18 23:09 Last Admin: 12/12/17 23:15 Dose: 20 mg Fluconazole (Diflucan) 100 mg PO DAILY [facility] Stop: 02/09/18 08:59 Last Admin: 12/13/17 08:51 Dose: 100 mg Folic Acid (Folate) 1 mg GT DAILY [facility] Stop: 02/10/18 08:59 Last Admin: 12/13/17 08:52 Dose: 1 mg Glucagon (Glucagen) 1 mg IM PRN PRN PRN Reason: BS BELOW 60 & NOT TOLERATE PO Stop: 02/08/18 23:14 Piperacillin Sod/Tazobactam (Sod 3.375 gm/ Sodium Chloride) 50 mls @ 100 mls/ hr IV Q6HR [facility] Stop: 02/09/18 00:00 Last Admin: 12/13/17 12:49 Dose: 100 mls/hr Dextrose (D5w) 1,000 mls @ 50 mls/hr IV .Q20H [facility] Stop: 02/10/18 08:25 Last Admin: 12/13/17 08:53 Dose: 50 mls/hr Insulin Aspart (Novolog Insulin Sliding Scale) 0 units SUBQ Q6HR RYAN PRN Reason: Protocol Stop: 02/09/18 00:00 Last Admin: 12/13/17 12:49 Dose: 2 units Insulin Detemir (Levemir Insulin) 14 units SUBQ BID RYAN PRN Reason: Protocol Stop: 02/09/18 08:59 Last Admin: 12/13/17 08:54 Dose: 14 units Miscellaneous (Probiotic Screen) 1 ea MC PRN PRN PRN Reason: PROTOCOL Stop: 02/10/18 17:05 Morphine Sulfate (Morphine) 1 mg IVP Q4HR PRN PRN Reason: Pain (Severe) Stop: 02/10/18 23:46 Last Admin: 12/13/17 01:43 Dose: 1 mg Neomycin/Polymyxin/Bacitracin (Triple Antibiotic Pkt) 1 pkt TP DAILY [facility] Stop: 02/09/18 08:59 Last Admin: 12/13/17 08:52 Dose: 1 pkt Pantoprazole Sodium (Protonix) 40 mg IVP BID RYAN Stop: 02/09/18 08:59 Last Admin: 12/13/17 08:53 Dose: 40 Lab - Result Diagrams 12/20/17 06:00 12/20/17 06:00 Na & BUN gradually improving Has mild upper ext edema scrotal US B/L Hydrocele On H20 flushes,increase D5W to 70 ml/hr Duplex scan no RUE DVT CXR left consolidation replace K Na same @ 148 f/u electrolytes Nutritional Asmnt/Malnutr-PDOC - Dietary Evaluation Malnutrition Findings (Please click <Entered> for more info): Nutritional Asmnt/Malnutrition Start: 12/13/17 16: 00 Text: Status: Complete Freq: Document 12/13/17 16:00 COSMOG (Rec: 12/13/17 16:22 LCHENG [email or web address]) Nutritional Asmnt/Malnutrition Patient General Information Nutritional Screening High Risk Consult Diagnosis sepsis, PNA, rsepiratory failure, PENNY Pertinent Medical Hx/Surgical Hx DM, HTN, dementia, psychotic dysphagia Subjective Information Pt seen resting in bed at time of visit. TF was off at this time. Spoke with RN, RN reported pt tolerated TF well. Current Diet Order/ Nutrition Support novosource 50ml x 20hr, providing 2000kcal, 91g protein Pertinent Medications D5w, folate, glucagen, novolog , levemir, triple antibiotic pkt, protonix, piperacillin Pertinent Labs 2/5 Na 158, K 3.6, Cl 127, BUN 65, Cr 1.3, Glucose 240, POC 170-249 Nutritional Hx/Data Height 1.85 m Height (Calculated Centimeters) 185.4 Current Weight (lbs) 68.039 kg Weight (Calculated Kilograms) 68.0 Weight (Calculated Grams) 78728.9 [place] Body Weight 184 % [place] Body Weight 82 Body Mass Index (BMI) 19.8 Weight Status Approriate GI Symptoms GI Symptoms None Last BM 2/5 Difficult in: None Skin Integrity/Comment: decubitus ulceration to right buttocks, bruise to RUE, maceration to scrotum Estimated Nutritional Goals BEE in Kcals: Using Current wt Calories/Kcals/Kg 27-32 Kcals Calculated 5287-9489 Protein: Using Current wt Protein g/k.2-1.4 monitor renal labs Protein Calculated 81-95 Fluid: ml 1836-2176ml (1ml/kcal) Nutritional Problem 1. Problem Problem altered nutrition related lab values Etiology dx of PENNY, hx of DM Signs/Symptoms: Na 158, BUN 65, Glucose 240, POC 170-249 Malnutrition Alert Protein-Calorie Malnutrition N/A Is there a minimum of two criteria No selected? Query Text:Check all the applicable criteria. A minimum of two criteria are recommended for diagnosis of either severe or non-severe malnutrition. Intervention/Recommendation Comments 1. Continue with current TF regimen. It provides 2000kcal, 91g protein, meeting 100% of nutritional needs 2. Monitor TF rate, tolerance, wt weekly, skin integrity and labs 3. F/U as moderate risk in 3-5 days, 12/16-12/18 Expected Outcomes/Goals Expected Outcomes/Goals 1. Pt to meet at least 75% of nutritional needs via nutrition support with tolerance 2. Wt stability, skin to remain intact, labs to approach WNL.
--- NOTE | 2017-12-20 14:16 | Pathology Report ---
[id number] Collection date: 12/16/2017 Surgeon: Dr. Dane Tate Specimen Description: 1. Antrum biopsy 2. Duodenum biopsy Gross Description: Part I: Received in formalin is a single guajardo soft tissue fragment measuring 0.1 cm in greatest dimension. Totally submitted in one cassette labeled A. Gross Description: Part II: Received in formalin are two guajardo soft tissue fragments ranging from 0.1 to 0.2 cm in greatest dimension. Totally submitted in one cassette labeled B. Microscopic Description: Part I: The histologic sections show gastric mucosa with chronic inflammation present consisting of lymphocytes and plasma cells. The Giemsa stain shows no evidence for Helicobacter pylori. Diagnosis: Part I: 1. Chronic gastritis, antrum biopsy. 2. The Giemsa stain is negative for Helicobacter pylori. Microscopic Description: Part II: The histologic sections show duodenal mucosa with intact intestinal villi, showing no evidence for villous abnormality. There is chronic inflammation present consisting of increased numbers of lymphocytes and plasma cells. Diagnosis: Part II: 1. Nonspecific chronic inflammation, duodenal biopsy. 2. There is no evidence for celiac disease/sprue. [facility]# [id number] [facility]
--- NOTE | 2017-12-20 19:01 | Infectious Disease Prog Note ---
Infectious Disease Subjective - Review of Systems Service Date: 12/20/17 Subjective: cc uti hematuria pn hpi- pt on iv bax hb 8 after transfusion all cx negative so far zosyn discontinued schedule for transfer to [facility] ros no fevr o/e vss chaest ckar abd soft ext pulse\ plan discontinue abx Infectious Disease Objective - Results Result Diagrams: 12/20/17 06:00 12/20/17 06:00 Recent Labs: Laboratory Last Values WBC 10.5 Th/cmm (4.8-10.8) D 12/20/17 06:00 Corrected WBC (auto) 4.4 Th/cmm 12/12/17 23:59 RBC 2.64 Mil/cmm (3.80-5.80) L 12/20/17 06:00 Hgb 9.1 gm/dL (12-16) L 12/20/17 06:00 Hct 26.1 % (41.0-60) L 12/20/17 06:00 MCV 98.7 fl (80-99) 12/20/17 06:00 MCH 34.6 pg (27.0-31.0) H 12/20/17 06:00 MCHC Differential 35.0 pg (28.0-36.0) 12/20/17 06:00 RDW 15.7 % (11.5-20.0) 12/20/17 06:00 Plt Count 290 Th/cmm (150-400) D 12/20/17 06:00 MPV 9.9 fl 12/20/17 06:00 Neutrophils % 79.3 % (40.0-80.0) 12/20/17 06:00 Band Neutrophils % 10 % (0-10) 12/12/17 23:59 Lymphocytes % 13.3 % (20.0-50.0) L 12/20/17 06:00 Monocytes % 6.2 % (2.0-10.0) 12/20/17 06:00 Eosinophils % 0.7 % (0.0-5.0) 12/20/17 06:00 Basophils % 0.5 % (0.0-2.0) 12/20/17 06:00 Neutrophils (Manual) 60 % (40-80) 12/12/17 23:59 Lymphocytes 20 % (20-50) 12/12/17 23:59 Monocytes 6 % (2-10) 12/12/17 23:59 Eosinophils 4 % (0-5) 12/12/17 23:59 Nucleated RBCs 6.0 % (0-0) H 12/12/17 23:59 Platelet Estimate SLIGHT DECREASED (NORMAL) 12/12/17 23:59 Platelet Morphology GIANT PLATELETS SEEN (NORMAL) 12/11/17 17:58 Polychromasia 1+ 12/11/17 17:58 Anisocytosis 1+ 12/11/17 17:58 RBC Morph Micro Appear ABNORMAL (NORMAL) 12/11/17 17:58 PT 11.9 SECONDS (9.5-11.5) H 12/15/17 06:20 INR 1.13 (0.5-1.4) 12/15/17 06:20 PTT (Actin FS) 26.9 SECONDS (26.0-38.0) 12/15/17 06:20 Specimen Source Arterial 12/10/17 14:05 Sample Site Left Radial 12/10/17 14:05 pH 7.51 (7.35-7.45) H 12/10/17 14:05 pCO2 36.0 mmHg (35.0-45.0) 12/10/17 14:05 pO2 102.0 mmHg (80.0-100.0) H 12/10/17 14:05 HCO3 29.2 mEq/L (20.0-26.0) H 12/10/17 14:05 Base Excess 5.5 mEq/L (-3.0-3.0) H 12/10/17 14:05 O2 Saturation 98.0 % (92.0-100.0) 12/10/17 14:05 Mario Test YES 12/10/17 14:05 Vent Rate NA 12/10/17 14:05 Inspired O2 50 12/10/17 14:05 Tidal Volume NA 12/10/17 14:05 PEEP NA 12/10/17 14:05 Pressure (ins/psv/peep) NA 12/10/17 14:05 Critical Value E.PICHARDO 12/10/17 14:05 Sodium 148 mEq/L (136-145) H 12/20/17 06:00 Potassium 3.5 mEq/L (3.5-5.1) 12/20/17 06:00 Chloride 116 mEq/L (98-107) H 12/20/17 06:00 Carbon Dioxide 26.6 mEq/L (21.0-31.0) 12/20/17 06:00 Anion Gap 8.9 (7.0-16.0) 12/20/17 06:00 BUN 24 mg/dL (7-25) 12/20/17 06:00 Creatinine 1.0 mg/dL (0.7-1.3) 12/20/17 06:00 Est GFR ( Amer) TNP 12/20/17 06:00 Est GFR (Non-Af Amer) TNP 12/20/17 06:00 BUN/Creatinine Ratio 24.0 12/20/17 06:00 Glucose 157 mg/dL (70-105) H 12/20/17 06:00 POC Glucose 138 MG/DL (70 - 105) H 12/20/17 18:11 Hemoglobin A1c % 6.4 % (4.0-6.0) H 12/11/17 05:30 Whole Bld Lactic Acid 1.12 mmol/L (0.60-1.99) 12/11/17 07:37 Calcium 8.8 mg/dL (8.6-10.3) 12/20/17 06:00 Phosphorus 2.7 mg/dL (2.5-5.0) 12/16/17 06:50 Magnesium 2.0 mg/dL (1.9-2.7) 12/17/17 05:50 Iron 26 ug/dL (38-169) L 12/11/17 05:30 TIBC 161 ug/dL (250-450) L 12/11/17 05:30 Iron Saturation 16 % (15-55) 12/11/17 05:30 Unsaturated IBC 135 ug/dL (111-343) 12/11/17 05:30 Ferritin 513 ng/mL (30-400) H 12/11/17 05:30 Total Bilirubin 0.3 mg/dL (0.3-1.0) 12/19/17 05:53 AST 74 U/L (13-39) H 12/19/17 05:53 ALT 89 U/L (7-52) H 12/19/17 05:53 Alkaline Phosphatase 151 U/L (34-104) H 12/19/17 05:53 Troponin I 0.44 ng/mL (0.01-0.05) H* D 12/10/17 14:06 B-Natriuretic Peptide 532.0 pg/mL (5.0-100.0) H 12/10/17 14:06 Total Protein 4.7 gm/dL (6.0-8.3) L 12/19/17 05:53 Albumin 2.1 gm/dL (4.2-5.5) L 12/19/17 05:53 Globulin 2.6 gm/dL 12/19/17 05:53 Albumin/Globulin Ratio 0.8 (1.0-1.8) L 12/19/17 05:53 Vitamin B12 1620 pg/mL (232-1245) H 12/11/17 05:30 Folic Acid >20.0 ng/mL (>3.0) 12/11/17 05:30 Urine Source [place] 12/15/17 16:30 Urine Color YELLOW 12/15/17 16:30 Urine Clarity CLEAR (CLEAR) 12/15/17 16:30 Urine pH 6.0 (4.6 - 8.0) 12/15/17 16:30 Ur Specific [place] 1.015 (1.005-1.030) 12/15/17 16:30 Urine Protein 30 mg/dL (NEGATIVE) H 12/15/17 16:30 Urine Glucose (UA) NEGATIVE mg/dL (NEGATIVE) 12/15/17 16:30 Urine Ketones NEGATIVE mg/dL (NEGATIVE) 12/15/17 16:30 Urine Blood LARGE (NEGATIVE) H 12/15/17 16:30 Urine Nitrate NEGATIVE (NEGATIVE) 12/15/17 16:30 Urine Bilirubin NEGATIVE (NEGATIVE) 12/15/17 16:30 Urine Urobilinogen 0.2 E.U./dL (0.2 - 1.0) 12/15/17 16:30 Ur Leukocyte Esterase NEGATIVE (NEGATIVE) 12/15/17 16:30 Urine RBC 2-5 /hpf (0-5) H 12/15/17 16:30 Urine WBC 2-5 /hpf (0-5) 12/15/17 16:30 Ur Epithelial Cells RARE /lpf (FEW) 12/15/17 16:30 Urine Bacteria OCCASIONAL /hpf (NONE SEEN) 12/15/17 16:30 Stool Occult Blood POSITIVE (NEGATIVE) H 12/13/17 13:20 Helicobacter pylori Ab NEGATIVE (NEGATIVE) 12/16/17 14:40 Blood Type A POSITIVE 12/15/17 06:20 Antibody Screen NEGATIVE 12/15/17 06:20 Crossmatch See Detail 12/15/17 06:20 - Physical Exam Vitals and I&O: Vital Signs Temp 98.4 F 12/20/17 17:28 Pulse 92 12/20/17 17:28 Resp 18 12/20/17 17:28 BP 124/62 12/20/17 17:28 Pulse Ox 100 12/20/17 17:28 Intake & Output 12/20/17 12/20/17 12/21/17 06:59 18:59 06:59 Intake Total 1300 Output Total 1225 Balance 75 Weight (lbs) 96.162 kg Intake: Tube Feeding 500 TPN/PPN 400 Other 400 Output: Urine 1225 Other: # Bowel Movements 1 Active Medications: Current Medications Acetaminophen (Tylenol 650mg Supp) 650 mg RC Q4H PRN PRN Reason: Fever > 101 Stop: 02/08/18 23:09 Albuterol/Ipratropium (Duoneb Neb) 3 ml HHN Q6HRT RYAN Stop: 02/09/18 00:59 Last Admin: 12/20/17 12:11 Dose: 3 ml Amlodipine Besylate (Norvasc) 5 mg GT DAILY RYAN Stop: 02/09/18 08:59 Last Admin: 12/20/17 08:58 Dose: 5 mg Atorvastatin Calcium (Lipitor) 20 mg GT HS RYAN Stop: 02/09/18 20:59 Last Admin: 12/19/17 21:29 Dose: 20 mg Carvedilol (Coreg) 3.125 mg GT BID RYAN Stop: 02/09/18 08:59 Last Admin: 12/20/17 16:32 Dose: 3.125 mg [place] Oil/[place] Balsam/Trypsin (Venelex) 1 appl TP DAILY RYAN Stop: 02/09/18 08:59 Last Admin: 12/20/17 08:58 Dose: 1 appl Dextrose (D50w) 50 ml IVP PRN PRN PRN Reason: Blood Glucose less than 70 Stop: 02/13/18 15:17 Dextrose (Glutose 40%) 18.75 gm PO PRN PRN PRN Reason: Blood Glucose less than 70 Stop: 02/13/18 15:17 Diltiazem HCl (Cardizem) 20 mg IVP Q4HR PRN PRN Reason: HR above 110 Stop: 02/08/18 23:09 Last Admin: 12/12/17 23:15 Dose: 20 mg Fluconazole (Diflucan) 100 mg PO DAILY [facility] Stop: 02/09/18 08:59 Last Admin: 12/20/17 08:57 Dose: 100 mg Folic Acid (Folate) 1 mg GT DAILY [facility] Stop: 02/10/18 08:59 Last Admin: 12/20/17 08:58 Dose: 1 mg Glucagon (Glucagen) 1 mg IM PRN PRN PRN Reason: Blood Glucose less than 70 Stop: 02/13/18 15:17 Dextrose (D5w) 1,000 mls @ 75 mls/hr IV .[id number] [facility] Stop: 02/18/18 13:15 Insulin Aspart (Novolog Insulin Sliding Scale) 0 units SUBQ Q6HR RYAN PRN Reason: Protocol Stop: 02/09/18 00:00 Last Admin: 12/20/17 12:55 Dose: Not Given Insulin Detemir (Levemir Insulin) 14 units SUBQ BID RYAN PRN Reason: Protocol Stop: 02/09/18 08:59 Last Admin: 12/20/17 16:39 Dose: Not Given Miscellaneous (Probiotic Screen) 1 ea PRN PRN PRN Reason: PROTOCOL Stop: 02/10/18 17:05 Miscellaneous (Vte Chemical Prophylaxis Screen/ Admission) 1 [facility] PRN PRN PRN Reason: PROTOCOL Stop: 02/13/18 10:23 Morphine Sulfate (Morphine) 1 mg IVP Q4HR PRN PRN Reason: Pain (Severe) Stop: 02/10/18 23:46 Last Admin: 12/14/17 18:10 Dose: 1 mg Neomycin/Polymyxin/Bacitracin (Triple Antibiotic Pkt) 1 pkt TP DAILY [facility] Stop: 02/09/18 08:59 Last Admin: 12/20/17 08:56 Dose: 1 pkt Nystatin (Nystop) 0 units TP BID [facility] Stop: 02/13/18 20:29 Last Admin: 12/20/17 16:32 Dose: 100,000 units Pantoprazole Sodium (Protonix) 40 mg IVP BID [facility] Stop: 02/09/18 08:59 Last Admin: 12/20/17 16:31 Dose: 40 mg Potassium Chloride (Klor-Con) 20 meq PO DAILY RYAN Stop: 02/15/18 13:59 Last Admin: 12/20/17 08:57 Dose: 20 meq - Procedures Procedures: Procedures Procedure Code Date BLOOD TRANSFUSION SERVICE 77058 12/10/17 EXCISION OF STOMACH, ENDO, DIAGN [id number] 11/15/17 INSERT TUNNELED CV CATH 72697 11/15/17 INSERTION OF FEEDING DEVICE INTO STOMACH, ENDO [id number] 11/15/17 INSERTION OF INFUSION DEV INTO R SUBCLAV VEIN, PERC APPROACH 23O334V 11/15/17 PERFORMANCE OF URINARY FILTRATION, <6 HRS/DAY [id number] 11/15/17 REMOVAL OF INFUSION DEVICE FROM UPPER VEIN, PERC APPROACH 39FA67M 11/15/17 TRANSFUSE NONAUT RED BLOOD CELLS IN PERIPH VEIN, PERC 70703Z9 12/10/17 ULTRASONOGRAPHY OF RIGHT SUBCLAVIAN VEIN, GUIDANCE [id number] 11/15/17 Nutritional Asmnt/Malnutr-PDOC - Dietary Evaluation Malnutrition Findings (Please click <Entered> for more info): Nutritional Asmnt/Malnutrition Start: 12/13/17 16: 00 Text: Status: Complete Freq: Document 12/13/17 16:00 HEN (Rec: 12/13/17 16:22 [email or web address] [id number]) Nutritional Asmnt/Malnutrition Patient General Information Nutritional Screening High Risk Consult Diagnosis sepsis, PNA, rsepiratory failure, PENNY Pertinent Medical Hx/Surgical Hx DM, HTN, dementia, psychotic dysphagia Subjective Information Pt seen resting in bed at time of visit. TF was off at this time. Spoke with RN, RN reported pt tolerated TF well. Current Diet Order/ Nutrition Support novosource 50ml x 20hr, providing 2000kcal, 91g protein Pertinent Medications D5w, folate, glucagen, novolog , levemir, triple antibiotic pkt, protonix, piperacillin Pertinent Labs 2/5 Na 158, K 3.6, Cl 127, BUN 65, Cr 1.3, Glucose 240, POC 170-249 Nutritional Hx/Data Height 1.85 m Height (Calculated Centimeters) 185.4 Current Weight (lbs) 68.039 kg Weight (Calculated Kilograms) 68.0 Weight (Calculated Grams) 99315.9 [place] Body Weight 184 % [place] Body Weight 82 Body Mass Index (BMI) 19.8 Weight Status Approriate GI Symptoms GI Symptoms None Last BM 2/5 Difficult in: None Skin Integrity/Comment: decubitus ulceration to right buttocks, bruise to RUE, maceration to scrotum Estimated Nutritional Goals BEE in Kcals: Using Current wt Calories/Kcals/Kg 27-32 Kcals Calculated 8436-2644 Protein: Using Current wt Protein g/k.2-1.4 monitor renal labs Protein Calculated 81-95 Fluid: ml 1836-2176ml (1ml/kcal) Nutritional Problem 1. Problem Problem altered nutrition related lab values Etiology dx of PENNY, hx of DM Signs/Symptoms: Na 158, BUN 65, Glucose 240, POC 170-249 Malnutrition Alert Protein-Calorie Malnutrition N/A Is there a minimum of two criteria No selected? Query Text:Check all the applicable criteria. A minimum of two criteria are recommended for diagnosis of either severe or non-severe malnutrition. Intervention/Recommendation Comments 1. Continue with current TF regimen. It provides 2000kcal, 91g protein, meeting 100% of nutritional needs 2. Monitor TF rate, tolerance, wt weekly, skin integrity and labs 3. F/U as moderate risk in 3-5 days, 12/16-12/18 Expected Outcomes/Goals Expected Outcomes/Goals 1. Pt to meet at least 75% of nutritional needs via nutrition support with tolerance 2. Wt stability, skin to remain intact, labs to approach WNL.
--- NOTE | 2017-12-30 21:46 | Discharge Summary ---
DATE OF DISCHARGE: 12/20/2017 FINAL DIAGNOSES: 1. Aspiration pneumonia. 2. Sepsis. 3. Severe anemia. 4. Thrombocytopenia. 5. Diabetes mellitus. 6. End-stage renal failure. 7. Dehydration. REVIEW OF HISTORY: The patient is a 77-year-old male with long history of diabetes mellitus, end-stage renal failure, hypertension, presented to the Emergency Room with altered level of consciousness, cough, congestion, hypoxemia, evaluated by the ER physician, initial workup significant for aspiration pneumonia, dehydration and sepsis. The patient admitted to ICU. PHYSICAL EXAMINATION: VITAL SIGNS: Temperature 98, heart rate was 117, blood pressure 130/70. CHEST: Diminished breathing sounds. HEART: S1, S2 normal. ABDOMEN: Soft, bowel sounds positive. EXTREMITIES: No edema. The patient started on IV fluid, antibiotic. Pulmonary consultation, Infectious consultation obtained. COURSE OF HOSPITALIZATION: During hospitalization, the patient improved clinically. On 12/13/2017, the patient is still lethargic. Chest, mild diminished breathing sound. Heart, S1, S2 normal. Abdomen, soft, bowel sounds positive. On 12/16/2017, the patient was more stable clinically. Chest, diminished breathing sound. Heart, S1, S2 normal. Abdomen, soft. Bowel sounds positive. On 12/18/2017, the patient was afebrile. Chest, diminished breathing sound. Heart, S1, S2 normal. Abdomen, soft. Bowel sounds positive. On 12/20/2017, the patient was clinically stable. Chest, clear to auscultation. Abdomen, soft, bowel sounds positive. DISPOSITION: The patient discharged back to [facility] to continue all his medication and diet. CONDITION ON DISCHARGE: Stable. MEDICATIONS: Follow discharge reconciliation. [place]# [id number]
== END 2017-12-20 18:57 | DRG 871 ==
LOC: ER 13:56 → ERII 17:00 → ICU 18:48 → MSI 12-16 13:47 → TELE 12-16 13:54
PROVIDERS: ADMIT Family Medicine; ATTEND Family Medicine
PROC: 30233N1 Transfusion of Nonautologous Red Blood Cells into Peripheral Vein, Percutaneous Approach (ICD-10-PCS; principal; 2017-12-10)
PROC: 0DB98ZX Excision of Duodenum, Via Natural or Artificial Opening Endoscopic, Diagnostic (ICD-10-PCS; 2017-12-16)
PROC: 0DB68ZX Excision of Stomach, Via Natural or Artificial Opening Endoscopic, Diagnostic (ICD-10-PCS; 2017-12-16)
PROC: 0W3P8ZZ Control Bleeding in Gastrointestinal Tract, Via Natural or Artificial Opening Endoscopic (ICD-10-PCS; 2017-12-16)
DX: A41.9 Sepsis, unspecified organism (principal); J69.0 Pneumonitis due to inhalation of food and vomit; J96.90 Respiratory failure, unspecified, unspecified whether with hypoxia or hypercapnia; B37.1 Pulmonary candidiasis; N17.9 Acute kidney failure, unspecified; I47.2 Ventricular tachycardia; K26.4 Chronic or unspecified duodenal ulcer with hemorrhage; K29.71 Gastritis, unspecified, with bleeding; N18.3 Chronic kidney disease, stage 3 (moderate); K29.81 Duodenitis with bleeding; E87.0 Hyperosmolality and hypernatremia; N39.0 Urinary tract infection, site not specified; D69.6 Thrombocytopenia, unspecified; E11.22 Type 2 diabetes mellitus with diabetic chronic kidney disease; E86.0 Dehydration; F03.90 Unspecified dementia, unspecified severity, without behavioral disturbance, psychotic disturbance, mood disturbance, and anxiety; I12.9 Hypertensive chronic kidney disease with stage 1 through stage 4 chronic kidney disease, or unspecified chronic kidney disease; E78.5 Hyperlipidemia, unspecified; I25.10 Atherosclerotic heart disease of native coronary artery without angina pectoris; K21.9 Gastro-esophageal reflux disease without esophagitis; E03.9 Hypothyroidism, unspecified; I48.91 Unspecified atrial fibrillation; F20.9 Schizophrenia, unspecified; K44.9 Diaphragmatic hernia without obstruction or gangrene; D63.1 Anemia in chronic kidney disease; N40.0 Benign prostatic hyperplasia without lower urinary tract symptoms; J44.9 Chronic obstructive pulmonary disease, unspecified; N43.2 Other hydrocele; R31.0 Gross hematuria; T45.515A Adverse effect of anticoagulants, initial encounter; E87.6 Hypokalemia; N20.0 Calculus of kidney; Z86.73 Personal history of transient ischemic attack (TIA), and cerebral infarction without residual deficits; Y92.89 Other specified places as the place of occurrence of the external cause; Z93.1 Gastrostomy status; Z88.8 Allergy status to other drugs, medicaments and biological substances; Z95.0 Presence of cardiac pacemaker; Z74.01 Bed confinement status; Z79.4 Long term (current) use of insulin
CPT/HCPCS: 36415-UA; 36600-90; 71045-TC; 76700-TC; 76770-TC; 76870-TC; 80048-TC; 80053-TC; 81001-TC; 82270-TC; 82607-90; 82728-90; 82746-90; 82803-TC; 82948-90; 83036-90; 83540-90; 83550-90; 83605; 83735-TC; 83880-TC; 84100-TC; 84484-TC; 85007-TC; 85025-TC; 85027-TC; 85610-TC; 86850-TC; 86900-TC; 86901-TC; 86922-TC; 87070; 87070-90; 87338-TC; 88305-90; 88312-90; 90779; 90784; 90799; 93005; 93971-TC-RT; 94640; 94760; A4217; C9113; J1610; J1815; J2270; J2543; J2704; J3480; J7030; J7040; J7070; J7613; J7799; P9016; P9047; X6158; Z7508; Z7610